=== PATIENT | female | born 1970 ===

== ENCOUNTER 2016-10-28 08:07 | Inpatient (IN) | payer MEDICARE, MEDICAID ==
[2016-10-28 08:08] VITALS: BMI 43.5
[2016-10-28] MEDS ORDERED: Albuterol-Ipratrop 3 mg / 0.5 (3 ml) UD IH STA (09:04)
[2016-10-28] MEDS ORDERED: cefTRIAXone 1 gm 100 ML IVPB STA (09:04)
[2016-10-28] MEDS ORDERED: Azithromycin 500MG/NS 250ml 250 ML IVPB STA (09:04)
[2016-10-28 09:44] LABS: ADD MANUAL DIFF? NO
[2016-10-28 09:48] LABS: BASO # 0.01 K/mm3 (0.0-2.0); BASO % 0.2 % (0.0-3.0); EOS # 0.1 (0.0-0.7); EOS % 2.2 % (1.5-5.0); GRAN # 3.82 (1.4-6.5); GRAN % 78.2 % (50.0-68.0); HEMATOCRIT 31.8 % (36.0-48.0); LYMPH # 0.7 (1.2-3.4); LYMPH % 14.3 % (22.0-35.0); MEAN CELL VOLUME 89.6 fL (80.0-105.0); MEAN CORPUSCULAR HEMOGLOBIN 29.9 pg (25.0-35.0); MEAN CORPUSCULAR HGB CONC 33.3 g/dl (31.0-37.0); MEAN PLATELET VOLUME 9.6 fl (7.0-11.0); MONO # 0.3 (0.1-0.6); MONO % 5.1 % (1.0-6.0); PLATELET COUNT 254 10^3/uL (120.0-450.0); RED CELL DISTRIBUTION WIDTH 13.4 % (11.5-14.5); WHITE BLOOD COUNT 4.9 10^3/ul (4.5-11.0)
[2016-10-28 09:54] LABS: VENOUS BLOOD GAS BASE EXCESS -3.8 mmol/L (0.0-2.0); VENOUS BLOOD PH 7.29 (7.32-7.43)
[2016-10-28 09:59] LABS: ALB/GLOB RATIO 0.8 (1.1-1.8); BILIRUBIN,TOTAL 0.4 mg/dL (0.2-1.3); CALCIUM 8.4 mg/dL (8.4-10.5); POTASSIUM 4.6 mmol/L (3.6-5.0); TOTAL PROTEIN 6.8 g/dL (5.8-8.3)
[2016-10-28] MEDS ORDERED: Insulin Detemir 100 units/ml Vial (Levemir) SC STA (10:21)
[2016-10-28 10:59] LABS: TROPONIN I 0.05 ng/mL
--- NOTE | 2016-10-28 11:03 | ED PDOC ---
Arrival/HPI - General Historian: Patient - History of Present Illness Time/Duration: Prior to Arrival Symptom Onset: Sudden Symptom Course: Unchanged - General Chief Complaint: Shortness Of Breath Time Seen by Provider: 10/28/16 08:46 - History of Present Illness Narrative History of Present Illness (Text): 10/28/16 10:55 This is a 46 year old female with past medical history notable for left rib fracture, DM, HLD, HTN, CAD s/p CABG, depression, chronic renal insufficiency and chronic foot ulcer presenting to the ED for acute onset of shortness of breath. The patient states that she woke this morning at 3:20am to go to the bathroom when she became acutely short of breath. The patient used her ventolin rescue inhaler without relief. In addition to the shortness of breath , the patietn reports left sided chest pain that has improved. The patient also reports a dry cough that has been minimally productive. The patient denies fever, chills, headache, abdominal pain, N/V/D/C, changes in bowel/ bladder, and extremity paresthesias. PMHX: left 9th rib fracture, IDDM, HLD, HTN, CAD s/p CABG, COPD, AKBAR, depression , chronic renal insufficiency, chronic foot ulcer Sx: CABG (3 - 2013), debridement of left foot ulcer Allergies: NKDA FH: DM- Mother/father; liver cancer- father's side Social: Denies tobacco, ETOH or drug use. Born in [place]. Does not work. Lives with son. Cardio- Dr. Markham Nephro- Dr. Flores PMD- Dr. Correa ([facility]) Past Medical History - Provider Review Nursing Documentation Reviewed: Yes - Travel History Have you recently traveled outside [place] w/in the past 3 mons?: No - Infectious Disease Hx of Infectious Diseases: None - Tetanus Immunization Tetanus Immunization: Unknown - Cardiac Hx Cardiac Disorders: Yes Hx [place]: Yes Hx Hypertension: Yes - Pulmonary Hx Respiratory Disorders: Yes Hx Asthma: Yes - Neurological Hx Neurological Disorder: Yes (NEUROPATHY) Other/Comment: chronic b/l legs and foot burning pain - HEENT Hx HEENT Disorder: Yes (eyeglasses) - Renal Hx Renal Disorder: Yes Other/Comment: Renal insufficiency -2 years. 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 - Endocrine/Metabolic Hx Endocrine Disorders: Yes Hx Diabetes Mellitus Type 1: Yes - Hematological/Oncological Hx Blood Disorders: Yes Hx Anemia: Yes - Integumentary Hx Dermatological Disorder: No - Musculoskeletal/Rheumatological Hx Musculoskeletal Disorders: No Hx Falls: No - Gastrointestinal Hx Gastrointestinal Disorders: No - Genitourinary/Gynecological Hx Genitourinary Disorders: No - Psychiatric Hx Psychophysiologic Disorder: Yes Hx Depression: Yes Hx Emotional Abuse: No Hx Physical Abuse: No Hx Substance Use: No - Surgical History Hx Coronary Artery Bypass Graft: Yes (triple vessel) Hx Open Heart Surgery: Yes - Anesthesia Hx Anesthesia: Yes Hx Anesthesia Reactions: No Hx Malignant Hyperthermia: No - Suicidal Assessment Feels Threatened In Home Enviroment: No - Patient History Narrative Patient History: PMHX: left 9th rib fracture, IDDM, HLD, HTN, CAD s/p CABG, COPD, AKBAR, depression , chronic renal insufficiency, chronic foot ulcer Sx: CABG (3 vessels- 2013), debridement of left foot ulcer (Jorge Alberto Coronel) Family/Social History - Physician Review Nursing Documentation Reviewed: Yes Family/Social History: Diabetes, Neoplasm/Cancer Smoking Status: Never Smoked Hx Alcohol Use: No Hx Substance Use: No Allergies/Home Meds Allergies/Adverse Reactions: Allergies No Known Allergies Allergy (Verified 10/28/16 08:13) Home Medications: Home Meds Medication Instructions Recorded Confirmed Aspirin [Aspirin EC] 81 mg PO DAILY 03/13/16 10/28/16 Ferrous Sulfate [Feosol] 325 mg PO BID 10/28/16 10/28/16 Metoprolol Tartrate [Lopressor] 25 mg PO BID 10/28/16 10/28/16 Sevelamer [Renagel] 800 mg PO TID 10/28/16 10/28/16 Sevelamer [Renagel] 800 mg PO TID 10/30/16 10/30/16 Review of Systems - Physician Review All systems were reviewed & negative as marked: Yes - Review of Systems Constitutional: absent: Fatigue, Fevers Respiratory: SOB, Cough, Sputum (scant) Cardiovascular: Chest Pain Gastrointestinal: absent: Abdominal Pain Physical Exam Temperature: Afebrile Blood Pressure: Hypertensive Pulse: Regular Respiratory Rate: Tachypneic Appearance: Positive for: Ill-Appearing Pain Distress: None Mental Status: Positive for: Alert and Oriented X 3 - Systems Exam Head: Present: Atraumatic, Normocephalic Pupils: Present: PERRL Extroacular Muscles: Present: EOMI Conjunctiva: Present: Normal Mouth: Present: Moist Mucous Membranes Neck: Present: Normal Range of Motion. No: JVD, Lymphadenopathy Respiratory/Chest: Present: Respiratory Distress, Accessory Muscle Use, Decreased Breath Sounds, Rales (Bi-basilar), Tachypneic. No: Clear to Auscultation, Good Air Exchange, Wheezes Cardiovascular: Present: Regular Rate and Rhythm, Normal S1, S2. No: Murmurs Abdomen: Present: Normal Bowel Sounds. No: Tenderness, Distention, Peritoneal Signs Upper Extremity: Present: Normal Inspection, NORMAL PULSES, Capillary Refill < 2s. No: Cyanosis, Edema Lower Extremity: Present: Normal Inspection. No: Edema Neurological: Present: CN II-XII Intact Skin: Present: Warm, Dry, Normal Color. No: Rashes Lymphatic: No: Cervical Adenopathy Psychiatric: Present: Alert, Oriented x 3 Vital Signs Temp Pulse Pulse Resp BP Pulse Ox 10/28/16 17:47 91 H 18 194/110 H 98 10/28/16 17:45 81 81 20 134/89 10/28/16 17:44 95 H 194/110 H 10/28/16 15:58 86 18 179/94 H 99 10/28/16 15:42 88 22 168/74 H 99 10/28/16 14:14 81 20 164/89 H 100 10/28/16 13:36 80 18 154/87 H 100 10/28/16 12:53 79 22 141/92 H 100 10/28/16 12:02 76 20 176/67 H 100 10/28/16 11:49 75 18 164/96 H 100 10/28/16 11:23 74 19 182/96 H 100 10/28/16 11:17 74 18 159/100 H 100 10/28/16 10:06 97.5 F L 86 19 153/99 H 100 10/28/16 09:48 87 190/105 H 10/28/16 09:47 87 190/105 H 10/28/16 08:47 18 100 10/28/16 08:08 190/105 H Medical Decision Making - Lab Interpretations I have reviewed the lab results: Yes Interpretation: No clinic. 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 The patient appears in respiratory distress and will be treated empirically for acute COPD exacerbation. Differential: Acute COPD Exacerbation Pneumonia Asthma Exacerbation [place] Plan: CBC, CMP, VBG Shock Panel, Troponin, BNP 2-view CXR Rocephin 1g IV x 1 Azithromycin 500gm IV x 1 Duoneb Stat / Sched q6 Levemir 12u x 1 Prior Visits: Multiple admissions for Chest Pain and Shortness of Breath Progress Note: Patient seen and examined. In respiratory distress. The patient will require hospital admission in the setting of likely COPD exacerbation. 2 view CXR showed minimal bibasilar infiltrates and small effusions. Patient was treated empirically with rocephin and azithromycin 1 dose each. Hospitalist team notified of admission. (Jorge Alberto Coronel) ATTENDING PHYSICIAN FOCUSED HISTORY & PHYSICAL EXAM NOTE: Pt is a 46 yr old female who was seen and examined w/ the resident. Pt is c/o SOB since 3 AM and is having no relief when using inhalers at home. On our exam, T 97.5, P 86, R 19, BP 153/99 Gen: Pt is A&O x 3 in some resp distress Heart: RRR Lungs: decreased breath sounds to lungs B/L with rales noted bilaterally Initial Imp: COPD Exacerbation Initial Plan: Will give nebs, get CXR and give steroids. . (Austin Carroll Jr.) - Lab Interpretations Microbiology Results: Microbiology Results 10/28/16 09:30 Blood-Venous Blood Culture - Final NO GROWTH AFTER 5 DAYS 10/28/16 09:30 Blood-Venous Gram Stain - Final TEST NOT PERFORMED 10/28/16 09:30 Blood-Venous Blood Culture - Final NO GROWTH AFTER 5 DAYS 10/28/16 09:30 Blood-Venous Gram Stain - Final TEST NOT PERFORMED Lab Results: 10/28/16 09:00 10/28/16 09:00 Lab Results 10/28/16 11:29: POC Glucose (mg/dL) 403 H* 10/28/16 10:36: Troponin I 0.05, NT-Pro-B Natriuret Pep 66042 H 10/28/16 09:30: pO2 50, VBG pH 7.29 L, VBG pCO2 48.0, VBG HCO3 23.1, VBG Total CO2 24.6, VBG O2 Sat (Calc) 85.6 H, VBG Base Excess -3.8 L, VBG Potassium 4.6, Sodium 139.0, Chloride 112.0 H, Glucose 354 H, Lactate 0.7, FiO2 21.0, Venous Blood Potassium 4.6 10/28/16 09:00: WBC 4.9 D, RBC 3.55, Hgb 10.6 L, Hct 31.8 L, MCV 89.6, MCH 29.9 , MCHC 33.3, RDW 13.4, Plt Count 254, MPV 9.6, Gran % 78.2 H, Lymph % (Auto) 14.3 L, [place] % (Auto) 5.1, Eos % (Auto) 2.2, Baso % (Auto) 0.2, Gran # 3.82, Lymph # 0.7 L, [place] # 0.3, Eos # 0.1, Baso # 0.01, Sodium 136, Chloride 105, Potassium 4.6, Carbon Dioxide 26, Anion Gap 10, BUN 50 H, Creatinine 3.6 H, Est GFR ( Amer) 16, Est GFR (Non-Af Amer) 13, Random Glucose 329 H* D, Calcium 8.4, Total Bilirubin 0.4, AST 24, ALT 25, Alkaline Phosphatase 81, Total Protein 6.8, Albumin 3.0, Globulin 3.8, Albumin/Globulin Ratio 0.8 L, Beta HCG, Quant 5.18 Laboratory Last Values WBC 4.9 10^3/ul (4.5-11.0) D 10/28/16 09:00 RBC 3.55 10^6/uL (3.5-6.1) 10/28/16 09:00 Hgb 10.6 gm/dL (12.0-16.0) L 10/28/16 09:00 Hct 31.8 % (36.0-48.0) L 10/28/16 09:00 MCV 89.6 fL (80.0-105.0) 10/28/16 09:00 MCH 29.9 pg (25.0-35.0) 10/28/16 09:00 MCHC 33.3 g/dl (31.0-37.0) 10/28/16 09:00 RDW 13.4 % (11.5-14.5) 10/28/16 09:00 Plt Count 254 10^3/uL (120.0-450.0) 10/28/16 09:00 MPV 9.6 fl (7.0-11.0) 10/28/16 09:00 Gran % 78.2 % (50.0-68.0) H 10/28/16 09:00 Lymph % (Auto) 14.3 % (22.0-35.0) L 10/28/16 09:00 [place] % (Auto) 5.1 % (1.0-6.0) 10/28/16 09:00 Eos % (Auto) 2.2 % (1.5-5.0) 10/28/16 09:00 Baso % (Auto) 0.2 % (0.0-3.0) 10/28/16 09:00 Gran # 3.82 (1.4-6.5) 10/28/16 09:00 Lymph # 0.7 (1.2-3.4) L 10/28/16 09:00 [place] # 0.3 (0.1-0.6) 10/28/16 09:00 Eos # 0.1 (0.0-0.7) 10/28/16 09:00 Baso # 0.01 K/mm3 (0.0-2.0) 10/28/16 09:00 pO2 50 mm/Hg (30-55) 10/28/16 09:30 VBG pH 7.29 (7.32-7.43) L 10/28/16 09:30 VBG pCO2 48.0 (40-60) 10/28/16 09:30 VBG HCO3 23.1 mmol/l (21-28) 10/28/16 09:30 VBG Total CO2 24.6 mmol.L (22-28) 10/28/16 09:30 VBG O2 Sat (Calc) 85.6 % (40-65) H 10/28/16 09:30 VBG Base Excess -3.8 mmol/L (0.0-2.0) L 10/28/16 09:30 VBG Potassium 4.6 mmol/L (3.6-5.2) 10/28/16 09:30 Sodium 139.0 mmol/L (132-148) 10/28/16 09:30 Chloride 112.0 mmol/L (98-107) H 10/28/16 09:30 Glucose 354 mg/dl (65-105) H 10/28/16 09:30 Lactate 0.7 mmol/L (0.7-2.1) 10/28/16 09:30 FiO2 21.0 % 10/28/16 09:30 Sodium 136 mmol/L (132-148) 10/28/16 09:00 Potassium 4.6 mmol/L (3.6-5.0) 10/28/16 09:00 Chloride 105 mmol/L (95-110) 10/28/16 09:00 Carbon Dioxide 26 mmol/L (21-33) 10/28/16 09:00 Anion Gap 10 (10-20) 10/28/16 09:00 BUN 50 mg/dL (7-21) H 10/28/16 09:00 Creatinine 3.6 mg/dL (0.5-1.4) H 10/28/16 09:00 Est GFR ( Amer) 16 10/28/16 09:00 Est GFR (Non-Af Amer) 13 10/28/16 09:00 Random Glucose 329 mg/dL (70-110) H* D 10/28/16 09:00 Calcium 8.4 mg/dL (8.4-10.5) 10/28/16 09:00 Total Bilirubin 0.4 mg/dL (0.2-1.3) 10/28/16 09:00 AST 24 U/L (15-39) 10/28/16 09:00 ALT 25 U/L (7-56) 10/28/16 09:00 Alkaline Phosphatase 81 U/L (38-133) 10/28/16 09:00 Troponin I 0.05 ng/mL 10/28/16 10:36 NT-Pro-B Natriuret Pep 73994 pg/mL (0-450) H 10/28/16 10:36 Total Protein 6.8 g/dL (5.8-8.3) 10/28/16 09:00 Albumin 3.0 g/dL (3.0-4.8) 10/28/16 09:00 Globulin 3.8 gm/dL 10/28/16 09:00 Albumin/Globulin Ratio 0.8 (1.1-1.8) L 10/28/16 09:00 Beta HCG, Quant 5.18 mIU/mL (0-6.15) 10/28/16 09:00 Venous Blood Potassium 4.6 mmol/L (3.6-5.2) 10/28/16 09:30 (Jorge Alberto Coronel) - RAD Interpretation Narrative RAD Interpretations (Text): 10/28/16 11:27 2 view chest- Minimal bibasilar infiltrates and small effusions (Jorge Alberto Coronel ) Radiology Orders: 10/28/16 09:04 CHEST TWO VIEWS (PA/LAT) [RAD] Stat - EKG Interpretation EKG Interpretation (Text): 10/28/16 11:27 T wave abnormality possible lateral ischemia prolonged QT NSR (Jorge Alberto Coronel) - Medication Orders Current Medication Orders: Acetaminophen (Tylenol 325mg Tab) 650 mg PO Q6H PRN PRN Reason: Fever >100.4 F Last Admin: 10/30/16 09:50 Dose: 650 MG BANNER Pain/Vitals Document 10/30/16 09:50 SG (Rec: 10/30/16 09:51 SG [id number] Pain Reassessment Is This A Pain ReAssessment? No Sleep Is patient sleeping during reassessment? No Presence of Pain Presence of Pain Yes Pain Scale Used Pain Scale Used Numeric Location Pain Location Body Site Back Description Intermittent Intensity 8 Scale Used Numeric Radiation Location none Variations/Patterns on/off Site Observation unremarkable Pain Behavior Facial Grimacing Aggravating Factors ADL's Changing Position Exercise/Activity Re-Assess: BANNER Pain/Vitals Document 10/30/16 10:50 SG (Rec: 10/30/16 12:37 SG [facility] [id number] Pain Reassessment Is This A Pain ReAssessment? Yes Sleep Is patient sleeping during reassessment? No Presence of Pain Presence of Pain No Acetylcysteine (Acetylcysteine 20%) 3 ml PO BID [facility] Last Admin: 11/02/16 10:36 Dose: 3 ML Albuterol/Ipratropium (Duoneb 3 Mg/0.5 Mg (3 Ml) Ud) 3 ml IH [id number] [facility] Last Admin: 11/02/16 13:36 Dose: 3 ML Aspirin (Ecotrin) 81 mg PO DAILY [facility] Last Admin: 11/02/16 10:51 Dose: 81 MG Atorvastatin Calcium (Lipitor) 40 mg PO DIN [facility] Last Admin: 11/01/16 17:33 Dose: 40 MG Cholecalciferol (Vitamin D) 2,000 iu PO DAILY [facility] Last Admin: 11/02/16 10:36 Dose: 2,000 IU Clopidogrel Bisulfate (Plavix) 75 mg PO DAILY [facility] Last Admin: 11/02/16 10:37 Dose: 75 MG Docusate Sodium (Colace) 100 mg PO BID [facility] Last Admin: 11/02/16 10:37 Dose: 100 MG Stool Assessment Document 11/02/16 10:37 AE (Rec: 11/02/16 10:37 AE [id number]) Pattern Bowel Pattern Normal Bowel Movement Frequency Daily Description Stool Characteristics Formed Brown Doxycycline Hyclate (Doryx) 100 mg PO Q12 [facility] PRN Reason: Protocol Last Admin: 11/02/16 10:37 Dose: 100 MG Famotidine (Pepcid) 20 mg PO 1000,2200 [facility] Last Admin: 11/02/16 10:37 Dose: 20 MG Ferrous Sulfate (Feosol) 324 mg PO TID [facility] Last Admin: 11/02/16 14:21 Dose: 324 MG Gabapentin (Neurontin) 300 mg PO DAILY [facility] PRN Reason: Protocol Last Admin: 11/02/16 10:43 Dose: 300 MG Behavioural Document 11/02/16 10:43 AE (Rec: 11/02/16 10:43 AE [id number]) Maintenance Maintenance Dose Yes Re-Assess: Reassess Psych Meds Document 11/02/16 11:43 SEUN (Rec: 11/02/16 14:29 SEUN [id number] Reassess Psych Med Effective Heparin Sodium (Porcine) (Heparin) 5,000 units SC Q8 [facility] PRN Reason: Protocol Last Admin: 11/02/16 14:20 Dose: 5,000 UNITS Subcutaneous Administrations Document 11/02/16 14:20 SEUN (Rec: 11/02/16 14:21 SEUN [id number] Injection Site MAR Injection Site Left Abdomen Charges for Administration # of Subcutaneous Administrations 1 Hydralazine HCl (Apresoline) 25 mg PO TID [facility] Last Admin: 11/02/16 14:21 Dose: 25 MG MAR Pulse and Blood Pressure Document 11/02/16 14:21 SEUN (Rec: 11/02/16 14:26 SEUN [id number] Pulse Pulse Rate (60-90) 90 Blood Pressure Blood Pressure (100/60-150/90) 123/69 Furosemide 240 mg/ Dextrose 264 mls @ 11 mls/hr IV .Q24H SELWYN; 10 MG/HR PRN Reason: Protocol Last Admin: 11/02/16 14:57 Dose: 11 MLS/HR MAR Blood Pressure Document 11/02/16 14:57 RKO (Rec: 11/02/16 14:58 RKO [id number]) Blood Pressure Blood Pressure (100/60-150/90) 123/69 eMAR Start Stop Document 11/02/16 14:57 RKO (Rec: 11/02/16 14:58 RKO [id number]) Intravenous Solution Start Date 11/02/16 Start Time 14:58 Insulin Detemir (Levemir) 17 unit SC Q12 [facility] Last Admin: 11/02/16 10:43 Dose: 17 UNIT Subcutaneous Administrations Document 11/02/16 10:43 AE (Rec: 11/02/16 10:43 AE [id number]) Injection Site MAR Injection Site Right Arm Charges for Administration # of Subcutaneous Administrations 1 Insulin Human Lispro (Humalog Med) 0 units SC ACHS [facility] PRN Reason: Protocol Last Admin: 11/02/16 13:40 Dose: 5 UNITS MAR Blood Glucose Document 11/02/16 13:40 SEUN (Rec: 11/02/16 13:41 SEUN [id number] Blood Glucose Finger Stick Blood Glucose (70-120) 261 Subcutaneous Administrations Document 11/02/16 13:40 SEUN (Rec: 11/02/16 13:41 SEUN [facility] [id number] Injection Site MAR Injection Site Right Arm Charges for Administration # of Subcutaneous Administrations 1 Metoprolol Tartrate (Lopressor) 25 mg PO BID [facility] Last Admin: 11/02/16 10:37 Dose: 25 MG MAR Pulse and Blood Pressure Document 11/02/16 10:37 AE (Rec: 11/02/16 10:42 AE [id number]) Pulse Pulse Rate (60-90) 90 Blood Pressure Blood Pressure (100/60-150/90) 159/81 Polyethylene Glycol (Miralax) 17 gm PO BID [facility] Prednisone (Prednisone Tab) 10 mg PO DAILY [facility] Sevelamer HCl (Renagel) 1,600 mg PO WM [facility] Last Admin: 11/02/16 14:29 Dose: Discontinued Medications Acetylcysteine (Acetylcysteine 20%) 6 ml PO BID SELWYN Stop: 10/31/16 18:01 Last Admin: 10/31/16 18:30 Dose: 6 ML Acetylcysteine (Acetylcysteine 20%) 6 ml PO ONCE ONE Stop: 10/29/16 06:31 Last Admin: 10/29/16 06:46 Dose: 6 ML Albuterol/Ipratropium (Duoneb 3 Mg/0.5 Mg (3 Ml) Ud) 3 ml IH STAT STA Stop: 10/28/16 09:05 Last Admin: 10/28/16 09:30 Dose: 3 ML Albuterol/Ipratropium (Duoneb 3 Mg/0.5 Mg (3 Ml) Ud) 3 ml IH Q2 PRN PRN Reason: Shortness of Breath Stop: 10/28/16 18:01 Albuterol/Ipratropium (Duoneb 3 Mg/0.5 Mg (3 Ml) Ud) 3 ml IH STAT STA Stop: 11/01/16 16:18 Last Admin: 11/01/16 16:42 Dose: 3 ML Diphenhydramine HCl (Benadryl) 25 mg IVP STAT STA Stop: 10/30/16 05:25 Last Admin: 10/30/16 05:43 Dose: 25 MG IVP Administration Document 10/30/16 05:43 AII (Rec: 10/30/16 05:43 AII [id number] Charges for Administration # of IVP Administrations 1 Diphenhydramine HCl (Benadryl) 50 mg PO STAT STA Stop: 10/30/16 22:36 Last Admin: 10/30/16 22:54 Dose: 50 MG Furosemide (Lasix) 40 mg IVP ONCE ONE Stop: 10/28/16 19:48 Last Admin: 10/28/16 20:06 Dose: 40 MG MAR Blood Pressure Document 10/28/16 20:06 DS (Rec: 10/28/16 20:06 DS [id number]) Blood Pressure Blood Pressure (100/60-150/90) 165/74 IVP Administration Document 10/28/16 20:06 DS (Rec: 10/28/16 20:06 DS [id number]) Charges for Administration # of IVP Administrations 1 Hydralazine HCl (Apresoline) 10 mg IVP STAT SELWYN Stop: 10/28/16 09:16 Last Admin: 10/28/16 09:47 Dose: 10 MG MAR Pulse and Blood Pressure Document 10/28/16 09:47 SE (Rec: 10/28/16 09:48 SE [id number]) Pulse Pulse Rate (60-90) 87 Blood Pressure Blood Pressure (100/60-150/90) 190/105 IVP Administration Document 10/28/16 09:47 SE (Rec: 10/28/16 09:48 SE [id number]) Charges for Administration # of IVP Administrations 1 Azithromycin (Zithromax 500mg In Ns) 250 mls @ 167 mls/hr IVPB STAT STA PRN Reason: Protocol Stop: 10/28/16 10:33 Last Admin: 10/28/16 10:49 Dose: 167 MLS/HR eMAR Start Stop Document 10/28/16 10:49 SE (Rec: 10/28/16 10:50 SE [id number]) Intravenous Solution Start Date 10/28/16 Start Time 10:49 Ceftriaxone Sodium (Rocephin 1 Gram Ivpb) 100 mls @ 200 mls/hr IVPB STAT STA PRN Reason: Protocol Stop: 10/28/16 09:33 Last Admin: 10/28/16 09:49 Dose: 200 MLS/HR eMAR Start Stop Document 10/28/16 09:49 SE (Rec: 10/28/16 09:49 SE [id number]) Intravenous Solution Start Date 10/28/16 Start Time 09:49 Milrinone Lactate/Dextrose (Primacor 20mg/100ml D5w) 100 mls @ 12.125 mls/hr IV .Q8H15M PRN; Protocol; 0.33 MCG/KG/MIN PRN Reason: TITRATE PER MD ORDER Last Admin: 11/02/16 03:49 Dose: 12.1 MLS/HR MAR Vitals Document 11/02/16 03:49 DS (Rec: 11/02/16 03:51 DS [id number] Measurements Blood Pressure (100/60-150/90) 130/68 Pulse Rate (60-90) 88 Titration Intervention Document 11/02/16 03:49 DS (Rec: 11/02/16 03:51 DS [id number] Titration Intake Container Volume 100 Titration Dosing Titration Dose 0.32 IV Rate 12.1 Intake/Decrease Running eMAR Start Stop Document 11/02/16 03:49 DS (Rec: 11/02/16 03:51 DS [facility] [id number] Intravenous Solution Start Date 11/02/16 Start Time 03:50 Influenza Virus Vaccine (Fluvirin) 45 mcg IM .ONCE ONE Stop: 10/28/16 18:16 Insulin Detemir (Levemir) 10 unit SC ONCE STA Stop: 10/28/16 10:22 Last Admin: 10/28/16 10:32 Dose: 10 UNIT Subcutaneous Administrations Document 10/28/16 10:32 SE (Rec: 10/28/16 10:32 SE [id number]) Injection Site MAR Injection Site Left Arm Charges for Administration # of Subcutaneous Administrations 1 Insulin Detemir (Levemir) 12 unit SC BID [facility] Last Admin: 10/29/16 17:55 Dose: 12 UNIT Subcutaneous Administrations Document 10/29/16 17:55 AE (Rec: 10/29/16 17:56 AE [id number] Charges for Administration # of Subcutaneous Administrations 1 Insulin Detemir (Levemir) 14 unit SC BID [facility] Last Admin: 10/31/16 10:51 Dose: 14 UNIT Subcutaneous Administrations Document 10/31/16 10:51 SG (Rec: 10/31/16 10:52 SG [id number]) Injection Site MAR Injection Site Right Arm Charges for Administration # of Subcutaneous Administrations 1 Insulin Detemir (Levemir) 15 unit SC BID [facility] Last Admin: 10/31/16 18:33 Dose: 15 UNIT Subcutaneous Administrations Document 10/31/16 18:33 SG (Rec: 10/31/16 18:33 SG [id number]) Injection Site MAR Injection Site Right Arm Charges for Administration # of Subcutaneous Administrations 1 Insulin Human Lispro (Humalog) 10 units SC ONCE STA Stop: 10/28/16 11:41 Last Admin: 10/28/16 12:51 Dose: 10 UNITS Comments: waiting on lunch tray for admin. Subcutaneous Administrations Document 10/28/16 12:51 SE (Rec: 10/28/16 12:51 SE [id number]) Injection Site MAR Injection Site Right Arm Charges for Administration # of Subcutaneous Administrations 1 Insulin Human Lispro (Humalog) 5 units SC ONCE ONE Stop: 10/29/16 23:42 Insulin Human Lispro (Humalog) 5 units SC ONCE ONE Stop: 10/28/16 23:46 Last Admin: 10/28/16 23:55 Dose: 5 UNITS Comments: Blood sugar yielded 465 Subcutaneous Administrations Document 10/28/16 23:55 DS (Rec: 10/28/16 23:56 DS [id number]) Injection Site MAR Injection Site Right Abdomen Charges for Administration # of Subcutaneous Administrations 1 Insulin Human Lispro (Humalog) 5 units SC ONCE ONE Stop: 10/30/16 01:05 Last Admin: 10/30/16 01:18 Dose: 5 UNITS Subcutaneous Administrations Document 10/30/16 01:18 AII (Rec: 10/30/16 01:19 AII [id number]) Injection Site MAR Injection Site Right Abdomen Charges for Administration # of Subcutaneous Administrations 1 Methylprednisolone (Solu-Medrol) 125 mg IVP STAT STA Stop: 10/28/16 09:08 Last Admin: 10/28/16 09:47 Dose: 125 MG IVP Administration Document 10/28/16 09:47 SE (Rec: 10/28/16 09:47 SE [facility] [id number][place] Charges for Administration # of IVP Administrations 1 Methylprednisolone (Solu-Medrol) 40 mg IV ONCE ONE Stop: 10/29/16 10:01 Last Admin: 10/29/16 10:14 Dose: 40 MG eMAR Start Stop Document 10/29/16 10:14 AE (Rec: 10/29/16 10:14 AE [facility] [id number]) Intravenous Solution Start Date 10/29/16 Start Time 10:14 End Date 10/29/16 End time 10:15 Total Infusion Time 1 Metoprolol Tartrate (Lopressor) 25 mg PO STAT STA Stop: 10/28/16 09:10 Last Admin: 10/28/16 09:48 Dose: 25 MG MAR Pulse and Blood Pressure Document 10/28/16 09:48 SE (Rec: 10/28/16 09:48 SE [facility] [id number][place] Pulse Pulse Rate (60-90) 87 Blood Pressure Blood Pressure (100/60-150/90) 190/105 Milrinone Lactate/Dextrose (Primacor 1mg/Ml Inj (10ml)) 6.1 mg IVP ONCE ONE Stop: 10/29/16 11:08 Last Admin: 10/29/16 12:07 Dose: 6.1 MG IVP Administration Document 10/29/16 12:07 AE (Rec: 10/29/16 12:07 AE [facility] [id number] Charges for Administration # of IVP Administrations 1 Nitroglycerin (Nitrostat Sl Tab) Confirm Administered Dose 0.4 mg SL .STK-MED ONE Stop: 11/01/16 16:42 Last Admin: 11/01/16 16:53 Dose: Nitroglycerin (Nitrostat Sl Tab) 0.4 mg SL Q5M [facility] Stop: 11/01/16 16:56 Last Admin: 11/01/16 17:25 Dose: Not Given Non-Admin Reason: Patient Refused Pneumococcal Polyvalent Vaccine (Pneumovax 23 Vaccine) 0.5 ml IM .ONCE ONE Stop: 10/28/16 18:16 Polyethylene Glycol (Miralax) 17 gm PO ONCE ONE Stop: 11/01/16 11:53 Last Admin: 11/01/16 12:52 Dose: 17 GM Prednisone (Prednisone Tab) 40 mg PO DAILY [facility] Last Admin: 10/31/16 10:46 Dose: 40 MG Prednisone (Prednisone Tab) 30 mg PO DAILY [facility] Last Admin: 11/01/16 10:04 Dose: 30 MG Prednisone (Prednisone Tab) 20 mg PO DAILY [facility] Last Admin: 11/02/16 10:44 Dose: 20 MG Sevelamer HCl (Renagel) 800 mg PO WM [facility] Last Admin: 10/30/16 12:32 Dose: 800 MG Torsemide (Demadex) 10 mg PO BID [facility] Last Admin: 11/02/16 10:51 Dose: 10 MG Disposition/Present on Arrival - Present on Arrival Any Indicators Present on Arrival: Yes History of DVT/PE: No History of Uncontrolled Diabetes: Yes Urinary Catheter: No History of Decub. Ulcer: No History Surgical Site Infection Following: None - Disposition Have Diagnosis and Disposition been Completed?: Yes Disposition Time: 11:00 Patient Plan: Admission - Disposition Diagnosis: COPD exacerbation, Chest pain, Renal insufficiency, Hyperglycemia, Diabetes, Congestive heart failure Disposition: HOSPITALIZED Patient Problems: Current Active Problems Problem Status Diagnosed COPD exacerbation Acute Chest pain Acute Congestive heart failure (CHF) Acute Gastroenteritis Acute Hyperglycemia Acute Congestive heart failure Chronic Diabetes Chronic Renal insufficiency Chronic Condition: GUARDED
--- NOTE | 2016-10-28 11:15 | RAD ---
HISTORY: SOB COMPARISON: 09/29/2016 TECHNIQUE: Chest PA and lateral FINDINGS: LUNGS: Minimal bibasilar infiltrates and small effusions. Findings are unchanged PLEURA: No significant pleural effusion identified. No pneumothorax apparent. CARDIOVASCULAR: Normal. OSSEOUS STRUCTURES: No significant abnormalities. VISUALIZED UPPER ABDOMEN: Normal. OTHER FINDINGS: None. IMPRESSION: Minimal bibasilar infiltrates and small effusions
[2016-10-28] MEDS ORDERED: Insulin Lispro 1 UNITS/0.01 ML SC STA (11:40)
[2016-10-28] MEDS ORDERED: Albuterol-Ipratrop 3 mg / 0.5 (3 ml) UD IH PRN (13:57)
[2016-10-28] MEDS: Albuterol-Ipratrop 3 mg / 0.5 (3 ml) UD IH SCH ×2 (14:11→22:45)
--- NOTE | 2016-10-28 15:53 | CP.PCM.HP ---
<Wade Alvarez - Last Filed: 10/28/16 19:33> History of Present Illness - History of Present Illness History of Present Illness: This is a 46 year old female with past medical history notable for left rib fracture, DM, HLD, HTN, CAD s/p CABG, depression, chronic renal insufficiency and chronic foot ulcer presenting to the ED for acute onset of shortness of breath. The patient states that she woke this morning at 3:20am to go to the bathroom when she became acutely short of breath. She has never had this much difficulty breathing before. The patient used her ventolin rescue inhaler without relief. In addition to the shortness of breath, the patient reports left sided chest pain that has improved and difficulty sleeping for the last month due to her difficulty breathing. During a recent sleep study she stated she was on Bipap and that worked very well for her but she does not have a CPAP at home. The patient also reports a dry cough that has been minimally productive. The patient denies fever, chills, headache, abdominal pain, N/V/D/C , changes in bowel/bladder, and extremity paresthesias. PMHX: left 9th rib fracture, IDDM, HLD, HTN, CAD s/p CABG, COPD, AKBAR, depression , chronic renal insufficiency, chronic foot ulcer Sx: CABG (3 2013), debridement of left foot ulcer Allergies: NKDA FH: DM- Mother/father; liver cancer- father's side Social: Denies tobacco, ETOH or drug use. Born in [place]. Does not work. Lives with son. Cardio- Dr. Markham Nephro- Dr. Flores PMD- Dr. Correa Present on Admission - Present on Admission Any Indicators Present on Admission: No Review of Systems - Constitutional Constitutional: absent: Chills, Fever, Headache - EENT Eyes: absent: Blurred Vision, Change in Vision Ears: absent: Decreased Hearing, Dizziness Nose/Mouth/Throat: Sore Throat - Cardiovascular Cardiovascular: Chest Pain. absent: Palpitations, Radiating Pain - Respiratory Respiratory: Cough, Dyspnea, Dyspnea on Exertion, Wheezing - Gastrointestinal Gastrointestinal: Abdominal Pain, Nausea. absent: Diarrhea, Vomiting - Genitourinary Genitourinary: absent: Difficulty Urinating, Dysuria, Flank Pain, Urinary Frequency - Musculoskeletal Musculoskeletal: Tingling. absent: Back Pain - Integumentary Integumentary: absent: Rash, Wounds - Neurological Neurological: Dizziness, Tingling. absent: Numbness, Syncope, Weakness - Psychiatric Psychiatric: Abnormal Sleep Pattern - Endocrine Endocrine: absent: Cold Intolorance, Fatigue, Heat Intolorance, Palpitations, Polydipsia, Polyuria Past Patient History - Infectious Disease Hx of Infectious Diseases: None - Tetanus Immunizations Tetanus Immunization: Unknown - Past Medical History & Family History Past Medical History?: Yes - Past Social History Smoking Status: Never Smoked Chewing Tobacco Use: No Cigar Use: No Alcohol: None Drugs: Denies Home Situation {Lives}: With Family (son) - CARDIAC Hx Cardiac Disorders: Yes Hx Heart Attack: Yes Hx Hypertension: Yes - PULMONARY Hx Respiratory Disorders: Yes Hx Asthma: Yes - NEUROLOGICAL Hx Neurological Disorder: Yes (NEUROPATHY) Other/Comment: chronic b/l legs and foot burning pain - HEENT Hx HEENT Problems: Yes (eyeglasses) - RENAL Hx Chronic Kidney Disease: Yes Other/Comment: Renal insufficiency -2 years. 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 - ENDOCRINE/METABOLIC Hx Endocrine Disorders: Yes Hx Diabetes Mellitus Type 1: Yes - HEMATOLOGICAL/ONCOLOGICAL Hx Blood Disorders: Yes Hx Anemia: Yes - INTEGUMENTARY Hx Dermatological Problems: No - MUSCULOSKELETAL/RHEUMATOLOGICAL Hx Musculoskeletal Disorders: No Hx Falls: No - GASTROINTESTINAL Hx Gastrointestinal Disorders: No - GENITOURINARY/GYNECOLOGICAL Hx Genitourinary Disorders: No - PSYCHIATRIC Hx Psychophysiologic Disorder: Yes Hx Depression: Yes Hx Emotional Abuse: No Hx Physical Abuse: No Hx Substance Use: No - SURGICAL HISTORY Hx Coronary Artery Bypass Graft: Yes (triple vessel) Hx Open Heart Surgery: Yes - ANESTHESIA Hx Anesthesia: Yes Hx Anesthesia Reactions: No Hx Malignant Hyperthermia: No Meds Allergies/Adverse Reactions: Allergies Allergy/AdvReac Type Severity Reaction Status Date / Time No Known Allergies Allergy Verified 10/28/16 08:13 Physical Exam - Constitutional Appears: Non-toxic, No Acute Distress - Head Exam Head Exam: ATRAUMATIC, NORMOCEPHALIC - Eye Exam Eye Exam: EOMI - ENT Exam ENT Exam: Mucous Membranes Moist - Neck Exam Neck exam: Positive for: Normal Inspection - Respiratory Exam Respiratory Exam: Wheezes, NORMAL BREATHING PATTERN - Cardiovascular Exam Cardiovascular Exam: REGULAR RHYTHM, RRR, +S1, +S2 - GI/Abdominal Exam GI & Abdominal Exam: Normal Bowel Sounds - Extremities Exam Extremities exam: Positive for: joint swelling, pedal edema - Back Exam Back exam: absent: CVA tenderness (L), CVA tenderness (R), paraspinal tenderness - Neurological Exam Neurological exam: Alert, CN II-XII Intact, Oriented x3 - Psychiatric Exam Psychiatric exam: Normal Affect, Normal Mood - Skin Skin Exam: Dry, Intact, Normal Color, Warm Results - Vital Signs Recent Vital Signs: Last Vital Signs Temp 97.5 F L 10/28/16 10:06 Pulse 88 10/28/16 15:42 Resp 22 10/28/16 15:42 BP 168/74 H 10/28/16 15:42 Pulse Ox 99 10/28/16 15:42 - Labs Result Diagrams: 10/28/16 09:00 10/28/16 09:00 - EKG Data EKG Interpreted by: ER Physician - EKG Data EKG comments: T wave abnormality possible lateral ischemia prolonged QT NSR Assessment & Plan - Assessment and Plan (Free Text) Assessment: 46 year old female with past medical history notable for left rib fracture, DM, HLD, HTN, CAD s/p CABG, depression, chronic renal insufficiency and chronic foot ulcer presenting to the ED for acute onset of shortness of breath and chest pain. Plan: Chest Pain -hx of CABG 2013 -hx of Stress Test Oct 22, 2016 showed EF of 21% per patient -Consult - Dr. Markham -Chest Xray -Minimal bibasilar infiltrates and small effusions -No cardiomegaly -EKG -T wave abnormality possible lateral ischemia -prolonged QT, NSR @ 86bpm -Trop "+" x1 -scheduled for cath tomorrow with Dr. Markham -pt. previously had cardiac stress test EF 21% and already had the Cath procedure scheduled for 10/29 Shortness of Breath -Chest Xray -Minimal bibasilar infiltrates and small effusions -No cardiomegaly -Solumedrol 40mg -Duonebs q6 SELWYN -Duonebs q2 PRN -BiPAP -I 12 -E 6 -O2 40% -wear at night -Blood Cultures - ordered -Ceftriaxone Chronic Renal Insufficiency -not on dialysis consult - Dr. Flores monitor CMP -BUN/Cr 50/3.6 on 10/28 Diabetes -CBC/CMP/Mg/Phos -glucose 329 on 10/28 -HgA1c -Insulin Lispro Medium SS Hypertension -Hydralazine -Torsemide -ASA -Metoprolol Hyperlipidemia -Lipitor - Date & Time Date: 10/28/16 Time: 13:00 <Faith Leavitt - Last Filed: 10/29/16 12:14> Results - Vital Signs Recent Vital Signs: Last Vital Signs Temp 97.4 F L 10/29/16 06:00 Pulse 80 10/29/16 06:46 Resp 20 10/29/16 06:00 BP 143/64 10/29/16 06:46 Pulse Ox 97 10/29/16 06:00 - Labs Result Diagrams: 10/29/16 07:30 10/29/16 07:30 Labs: Laboratory Results - last 24 hr 10/28/16 10/28/16 10/28/16 17:38 18:48 21:31 POC Glucose (mg/dL) 303 H 379 H 479 H* 10/28/16 10/29/16 23:34 03:00 POC Glucose (mg/dL) 465 H* 298 H Attending/Attestation - Attestation I have personally seen and examined this patient.: Yes I have fully participated in the care of the patient.: Yes I have reviewed all pertinent clinical information: Yes Notes (Text): Patient seen and examined with resident. 46 year old female with obesity, IDDM, HTN, CAD s/p CABG, CKD secondary to nephrotic syndrome, cardiomyopathy who got admitted for evaluation of shortness of breath most likely due to copd exacerbation vs CHF exacerbation due to systolic dysfunction (EF35%). Patient is able to talk in complete sentences and is not hypoxic at this time. She also had chest pain prior to coming to the hospital which has resolved now. 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 Still waiting for cpap to be delivered at home. Stress test done on 10/22/2016 showed EF of 21% and fixed defect. EKG showed T wave abnormailty, possible lateral ischemia in lateral leads, prolong QT interval. Also has elevated troponins. Dr Markham has already scheduled her for cardiac cath. CXR showed minimal bibasilar infiltrates and small effusions. Will start her on home medications. Will start her on duonebs, doxy and solumedrol. Dr Faith Leavitt
--- NOTE | 2016-10-28 16:46 | CARD ---
APPROVED REPORT EKG Measurement Heart [id number] <Conclusion> Normal sinus rhythm PRWP NSSTW changes Prolonged QTc
[2016-10-28] MEDS: Insulin Lispro (humaLOG) MEDIUM Coverage SC SCH ×3 (17:42→22:34)
[2016-10-28] MEDS ORDERED: Pneumococcal 23-Valent Vaccine IM ONE (18:15)
[2016-10-28] MEDS ORDERED: Influenza Vaccine 45 MCG/0.5 ml IM ONE (18:15)
[2016-10-28] MEDS ORDERED: Insulin Lispro 1 UNITS/0.01 ML SC ONE (23:45)
[2016-10-29] MEDS: Albuterol-Ipratrop 3 mg / 0.5 (3 ml) UD IH SCH ×4 (02:30→19:52)
[2016-10-29] MEDS ORDERED: Acetylcysteine 20% Inhal Soln (4ml) PO ONE (06:30)
[2016-10-29 07:55] LABS: ADD MANUAL DIFF? NO
--- NOTE | 2016-10-29 08:00 | CP.PCM.PN ---
<KimWade - Last Filed: 10/29/16 18:41> Subjective - Date & Time of Evaluation Date of Evaluation: 10/29/16 Time of Evaluation: 07:00 - Subjective Subjective: 46 year old female with past medical history notable for DM, HLD, HTN, CAD s/p CABG, chronic renal insufficiency presenting to the ED for acute onset of shortness of breath, chest pain and difficulty breathing. Per nurse, no acute events overnight. Pt. states the BiPAP worked and she slept well. She only complains of mild shortness of breath. She denies fever, chills, headache, chest pain, abdominal pain, N/V/D/C, changes in bowel/bladder, or extremity paresthesias. Objective - Vital Signs/Intake and Output Vital Signs (last 24 hours): Temp Pulse Resp BP Pulse Ox 97.4 F L 80 20 143/64 97 10/29/16 06:00 10/29/16 06:46 10/29/16 06:00 10/29/16 06:46 10/29/16 06:00 Intake and Output: 10/29/16 10/29/16 06:59 18:59 Intake Total 890 0 Output Total 250 600 Balance 640 -600 - Medications Medications: Current Medications Acetylcysteine (Acetylcysteine 20%) 6 ml PO BID [facility] Stop: 10/31/16 18:01 Albuterol/Ipratropium (Duoneb 3 Mg/0.5 Mg (3 Ml) Ud) 3 ml IH [id number] [facility] Last Admin: 10/29/16 02:30 Dose: 3 ml Aspirin (Ecotrin) 81 mg PO DAILY [facility] Last Admin: 10/29/16 06:46 Dose: 81 mg Atorvastatin Calcium (Lipitor) 40 mg PO DIN [facility] Last Admin: 10/28/16 17:44 Dose: 40 mg Hydralazine HCl (Apresoline) 25 mg PO TID [facility] Last Admin: 10/28/16 17:44 Dose: 25 mg Insulin Human Lispro (Humalog Med) 0 units SC ACHS [facility] PRN Reason: Protocol Last Admin: 10/28/16 22:34 Dose: 4 units Methylprednisolone (Solu-Medrol) 40 mg IV ONCE ONE Stop: 10/29/16 10:01 Metoprolol Tartrate (Lopressor) 25 mg PO BID [facility] Last Admin: 10/29/16 06:46 Dose: 25 mg Torsemide (Demadex) 10 mg PO BID [facility] Last Admin: 10/28/16 17:44 Dose: 10 mg - Constitutional Appears: Well, Non-toxic, No Acute Distress - Head Exam Head Exam: ATRAUMATIC, NORMOCEPHALIC - Eye Exam Eye Exam: EOMI - ENT Exam ENT Exam: Mucous Membranes Moist - Neck Exam Neck Exam: Full ROM - Respiratory Exam Respiratory Exam: Clear to Ausculation Bilateral, NORMAL BREATHING PATTERN. absent: Rhonchi, Wheezes - Cardiovascular Exam Cardiovascular Exam: REGULAR RHYTHM, RRR, +S1, +S2. absent: JVD - GI/Abdominal Exam GI & Abdominal Exam: Soft, Normal Bowel Sounds. absent: Tenderness - Extremities Exam Extremities Exam: Full ROM, Joint Swelling, Pedal Edema - Back Exam Back Exam: Full ROM, NORMAL INSPECTION. absent: CVA tenderness (L), CVA tenderness (R), rash noted - Neurological Exam Neurological Exam: Alert, Awake, Normal Gait, Oriented x3 - Psychiatric Exam Psychiatric exam: Normal Affect, Normal Mood - Skin Skin Exam: Dry, Intact, Normal Color, Warm Assessment and Plan - Assessment and Plan (Free Text) Assessment: 46 year old female with past medical history notable for left rib fracture, DM, HLD, HTN, CAD s/p CABG, depression, and chronic renal insufficiency presented to the ED for acute onset of shortness of breath and chest pain likely secondary to COPD exacerbation vs CHF exacerbation vs systolic dysfunction. Plan: Chest Pain -no longer complaining of CP -hx of CABG 2013 -hx of Stress Test Oct 22, 2016 showed EF of 21% per patient -Consult - Dr. Markham -cath procedure cancelled due to elevated Cr. will consult Nephroology for recs -added lasix -put pt. on Primacor drip -Chest Xray -Minimal bibasilar infiltrates and small effusions -No cardiomegaly -EKG -T wave abnormality possible lateral ischemia -prolonged QT, NSR @ 86bpm -Trop "+" x1 -scheduled for cath tomorrow with Dr. Markham -pt. previously had cardiac stress test EF 21% and already had the Cath procedure scheduled for 10/29 Shortness of Breath - resolving -Chest Xray -Minimal bibasilar infiltrates and small effusions -No cardiomegaly -Solumedrol 40mg -Duonebs q6 SELWYN -Duonebs q2 PRN -BiPAP -I 12 -E 6 -O2 40% -wear at night -Blood Cultures - NG after 24hrs -Ceftriaxone -Doxycycline 100mg BID Chronic Renal Insufficiency -not on dialysis, Stage 5 monitor CMP -BUN/Cr 50/3.6 on 10/28 -BUN/Cr 58/.42 on 10/29 Consult - Dr. Flores -Mucomyst prior to cath -Fe 101 -TIBC 203 low -% Sat 50 -Ferritin 361 Anemia Hgb 10.7 likely anemia of chronic disease Diabetes -CBC/CMP/Mg/Phos -glucose 329 on 10/28 -glucose 289 on 10/29 -HgA1c 8.7 high -Insulin Lispro Medium SS -added home med of Levemir 14u BID Hypertension -Hydralazine -Torsemide -ASA -Metoprolol Hyperlipidemia -Lipitor <Faith Leavitt - Last Filed: 10/31/16 16:38> Objective - Vital Signs/Intake and Output Vital Signs (last 24 hours): Temp Pulse Resp BP Pulse Ox 97.6 F 83 20 117/63 97 10/30/16 12:00 10/30/16 12:00 10/30/16 12:00 10/30/16 12:00 10/29/16 06:00 Intake and Output: 10/30/16 10/30/16 06:59 18:59 Intake Total 0 Balance 0 - Medications Medications: Current Medications Acetaminophen (Tylenol 325mg Tab) 650 mg PO Q6H PRN PRN Reason: Fever >100.4 F Last Admin: 10/30/16 09:50 Dose: 650 mg Acetylcysteine (Acetylcysteine 20%) 6 ml PO BID [facility] Stop: 10/31/16 18:01 Last Admin: 10/30/16 09:41 Dose: 6 ml Albuterol/Ipratropium (Duoneb 3 Mg/0.5 Mg (3 Ml) Ud) 3 ml IH [id number] [facility] Last Admin: 10/30/16 08:21 Dose: 3 ml Aspirin (Ecotrin) 81 mg PO DAILY [facility] Last Admin: 10/30/16 09:36 Dose: 81 mg Atorvastatin Calcium (Lipitor) 40 mg PO DIN [facility] Last Admin: 10/29/16 17:57 Dose: 40 mg Doxycycline Hyclate (Doryx) 100 mg PO Q12 [facility] PRN Reason: Protocol Last Admin: 10/30/16 09:36 Dose: 100 mg Hydralazine HCl (Apresoline) 25 mg PO TID [facility] Last Admin: 10/30/16 09:36 Dose: 25 mg Milrinone Lactate/Dextrose (Primacor 20mg/100ml D5w) 100 mls @ 12.125 mls/hr IV .Q8H15M PRN; Protocol; 0.33 MCG/KG/MIN PRN Reason: TITRATE PER MD ORDER Last Admin: 10/30/16 03:19 Dose: 12.1 mls/hr Insulin Detemir (Levemir) 14 unit SC BID [facility] Last Admin: 10/30/16 09:47 Dose: 14 unit Insulin Human Lispro (Humalog Med) 0 units SC ACHS [facility] PRN Reason: Protocol Last Admin: 10/30/16 12:32 Dose: 3 units Metoprolol Tartrate (Lopressor) 25 mg PO BID [facility] Last Admin: 10/30/16 09:36 Dose: 25 mg Prednisone (Prednisone Tab) 40 mg PO DAILY [facility] Sevelamer HCl (Renagel) 800 mg PO WM [facility] Last Admin: 10/30/16 12:32 Dose: 800 mg Torsemide (Demadex) 10 mg PO BID [facility] Last Admin: 10/30/16 09:36 Dose: 10 mg - Labs Labs: 10/30/16 05:00 10/30/16 05:00 Attending/Attestation - Attestation I have personally seen and examined this patient.: Yes I have fully participated in the care of the patient.: Yes I have reviewed all pertinent clinical information, including history, physical exam and plan: Yes Notes (Text): Patient seen and examined with resident. 46 year old female with obesity, IDDM, HTN, CAD s/p CABG, CKD secondary to nephrotic syndrome, cardiomyopathy who got admitted for evaluation of shortness of breath most likely due to copd exacerbation vs CHF exacerbation due to systolic dysfunction. She also had chest pain prior to coming to the hospital which has resolved now. 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 Still waiting for cpap to be delivered at home. SW consult pending. Stress test done on 10/22/2016 showed EF of 21% and fixed defect. EKG showed T wave abnormailty, possible lateral ischemia in lateral leads, prolong QT interval. Also has elevated troponins. Dr Markham has scheduled her for cardiac cath for . CXR showed minimal bibasilar infiltrates and small effusions. Patient was started on primaor and continued other home medications. Will continue duonebs, doxy and solumedrol taper. Nephrology consult appreciated. She has anemia of chronic disease. Dr Faith Leavitt
[2016-10-29] MEDS: Insulin Lispro (humaLOG) MEDIUM Coverage SC SCH ×4 (08:04→22:23)
[2016-10-29 08:07] LABS: EOS % 0.1 % (1.5-5.0); GRAN # 6.28 (1.4-6.5); GRAN % 82.9 % (50.0-68.0); HEMATOCRIT 32.8 % (36.0-48.0); LYMPH # 0.7 (1.2-3.4); MEAN CELL VOLUME 89.4 fL (80.0-105.0); MEAN CORPUSCULAR HEMOGLOBIN 29.2 pg (25.0-35.0); MEAN CORPUSCULAR HGB CONC 32.6 g/dl (31.0-37.0); MEAN PLATELET VOLUME 9.7 fl (7.0-11.0); MONO # 0.6 (0.1-0.6); PLATELET COUNT 334 10^3/uL (120.0-450.0); RED CELL DISTRIBUTION WIDTH 13.4 % (11.5-14.5); WHITE BLOOD COUNT 7.6 10^3/ul (4.5-11.0)
--- NOTE | 2016-10-29 08:08 | CON ---
DATE: 10/28/2016 CONSULTATION REQUESTED BY: Dr. Faith Leavitt. REASON FOR CONSULTATION: Stage V chronic kidney disease, anemia, hyperosmolar nonketotic syndrome, c ongestive heart failure. HISTORY OF PRESENT ILLNESS: The patient is a 46-year-old female. She presented to [facility]'s Emergency Department earlier today with a complaint of acute onset of shortness of breath. S he attempted to self-medicate with albuterol metered dose inhaler but without any relief. On arrival to the ED, the patient was noted to have a blood pressure of 190/105 with a heart rate of 87, breath ing at 18 breaths per minute with an oxygen saturation of 100%. Oral temperature was 97.5 degrees. She was noted to have respiratory distress and using accessory muscles of respiration when seen. The patient was given 1 gram of ceftriaxone as well as 500 mg of azithromycin intravenously and STAT Duo Neb. Laboratory studies revealed normal white blood cell count of 4900 with 78% neutrophilia and nor mocytic anemia with a hemoglobin of 11.6. Venous blood gas had a pH of 7.29 with a normal lactic aci d. Chemistry panel had a glucose of 329, but a BUN/creatinine of 50/3.6, and corrected calcium of 9. 2. Troponin I was 0.05, but N-terminal proBNP was elevated at 21,800. Chest x-ray did reveal minima l bibasilar infiltrates and small effusions. The patient was admitted to telemetry for further evalu ation and management. Of note, the creatinine of 3.6 that the patient had is better than the dischar creatinine of 5.8 less than 1 month ago. The patient does have a known history of COPD and family members believe that her COPD is triggered by her cat with whom she continues to live, although the patient is adamant that the cat does not sleep in the same room as her. She was recently discharged from a residential and is now back at home. The patient denies any smoking history. The patient de nied any chest pain or fevers, but she did have a cough. REVIEW OF SYSTEMS: Taken across all 10 systems and 14 points and is negative unless stated otherwise above. PAST MEDICAL HISTORY: Significant for type 2 diabetes mellitus that is insulin-dependent and uncontr olled, hypertension, dyslipidemia, coronary artery disease with history of CABG, stage IV chronic kid christina disease and nephrotic syndrome, presumably secondary to diabetic nephropathy, recently diagnosed obstructive sleep apnea for which she has been started on BiPAP, depression, and chronic ulcer of her left foot, which has been debrided. The patient underwent a CABG in 2013 at [facility]. She also has a known history of COPD and hyperphosphatemia and diabetic neuropathy. Also known history of congestive heart failure. MEDICATIONS PATIENT HAS BEEN TAKING AT HOME PRIOR TO ADMISSION: Include: Hydralazine 25 mg orally 3 times a day, torsemide 10 mg orally twice daily, Renagel 800 mg orally 3 times a day, metoprolol tar trate 25 mg orally twice daily, Levemir 12 units subcutaneously twice daily, heparin 5000 units subcu taneously every 8 hours, gabapentin 300 mg orally daily, Feosol 325 mg orally twice daily, famotidine 20 mg orally daily, Colace 100 mg orally twice daily, clopidogrel 75 mg orally daily, vitamin D3 200 0 units orally daily, atorvastatin 40 mg orally daily, aspirin 81 mg orally daily. ALLERGIES: The patient denied any drug allergies. SOCIAL HISTORY: Notable for the patient living at home. She has a cat. She does not smoke. She is exposed to secondhand smoke, however, with her children. She was born in [place]. There is no illicit drug use. She lives with her son. FAMILY HISTORY: Notable for the patient's parents having diabetes. Her father's side of the family also has liver cancer. PHYSICAL EXAMINATION: GENERAL APPEARANCE: I saw the patient sitting up in bed. She was in no acute distress and appeared to be fairly comfortable when I saw her. The patient was mentating clearly. VITAL SIGNS: Blood pressure is now 165/74 having been 194/110 earlier, heart rate is 81, respiratory rate is 18, oxygen saturation is 98% on 2 liters via nasal cannula. Oral temperature is 97.5 degree s. Since admission, I's and O's are 540/250. HEENT: The patient is normocephalic and atraumatic without any sinus tenderness. NECK: Supple with a full range of motion. Trachea is midline and freely movable. Thyroid is nonten oxana nor enlarged. I am unable to appreciate any jugular venous distention in this patient. CHEST: Lungs ryan on my exam have occasional wheezing, but faint bibasilar rales. Diaphragmatic e xcursion as well as air flow into both lungs ryan is bilaterally symmetrical. CARDIAC: Shows that she was irregularly irregular without any rubs. There are no heaves and the PMI is not displaced. ABDOMEN: Soft, distended and centrally obese, but nontender, without any rebounding, guarding or rig idity. There is no hepatosplenomegaly that I can appreciate. EXTREMITIES: Have 2+ edema. NEUROLOGIC: She is nonfocal. There is no clonus nor any asterixis. VASCULAR: Has no bruits. SKIN: Appear to be intact. LABORATORY STUDIES: White count is 4.9, H and H 10.5/31.8 with a platelet count of 254,000. MCV is 89.6. There are 78% neutrophils, 14% lymphocytes, 5% monocytes, 2% eosinophils. Venous pH on admiss ion was 7.29 with a normal lactic acid level. Sodium was 136, potassium was 4.6, chloride 105, bicar bonate 26, BUN/creatinine 50/3.6, with a glucose of 329, although this has gone up to 403. Total pro tein/albumin is 6.8/3 so that the calcium 8.4 corrects to 9.2. AST/ALT is 24/25. Alkaline phosphata se is 81. Troponin I is 0.05. N-terminal proBNP is 21,800. Beta hCG is 5.18. Chest x-ray as state d above as is EKG. IMPRESSION AND PLAN: The patient is a 46-year-old obese female (BMI 43.6 kg/m2) with type 2 diabetes mellitus that is uncontrolled with stage V chronic kidney disease and a baseline creatinine of appro ximately 3 with nephrotic syndrome, presumed secondary to diabetic nephropathy, hypertension, dyslipi demia, coronary artery disease with history of 3-vessel coronary artery bypass graft in 2013, obstruc tive sleep apnea, recently started on BiPAP, chronic obstructive pulmonary disease with chronic ulcer ation of her left foot, admitted with sudden onset of shortness of breath at home. Of note, she also had a markedly elevated blood pressure on admission. Since having been admitted, she feels better. The patient insists that she has been compliant with her home medications, but it seems that there m ay have been some indiscretions with respect to dietary intake. She did have a stress test approxima tely 1 week earlier that was abnormal revealing an ejection fraction of 27%. Since having been admit bernie, the patient was given 40 mg of Solu-Medrol and is on DuoNeb. The patient is noted to be edemato us and have some rales on exam as well as an elevated N-terminal proBNP. 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 If the patient is to undergo cardiac catheterization for her abnormal s tress test, she is certainly at elevated risk of contrast nephropathy and worsening renal function. I will start the patient on Mucomyst 1200 mg orally twice daily beginning prior to the cardiac cathet erization. Ordinarily treatment would also entail trying to optimize the patient's cardiac output by administering fluids; however, my concern would be that if we did show in this patient was an ejecti on fraction now of less than 30%, she would be unable to lie supine and we would precipitate acute de compensated congestive heart failure. For now, although the patient has edema this is secondary to n ephrotic syndrome as well, I would not diurese her for symptomatic relief of her edema nor do I think we need to give her intravenous fluids either, as this precipitate congestive heart failure. Rather , if she is to have a cardiac catheterization I believe on balance the safest option is to proceed wi th her current medication regimen in place. Blood pressure is in fact elevated at times and given he r known history of coronary artery disease, we certainly have room to increase her metoprolol as need ed. Also, we can attempt to optimize her cardiac output and thus her renal perfusion by increasing h er hydralazine for afterload reduction as well. The patient is clearly headed towards end-stage renal disease and although she does not require dialysis acutely, she will require it at some point in the near future. After she has undergone cardiac catheterization, we can then proceed with placement of an AV fistula; however, this could be done as an outpatient and not during this hospitalization. Fo r now, given the patient's known history of coronary artery disease, she also remains on aspirin as w ell as high intensity statin therapy with atorvastatin and is on metoprolol as stated above as well. We will need to control her glucose better and her hemoglobin A1c has been ordered again for tomorro w, but given the presence of microvascular disease a hemoglobin A1c of 6.5% would be ideal, although this does raise her risk for hypoglycemic episodes especially in a patient with known advanced chroni c kidney disease, as does she. The patient is also noted to be anemic, but with a normal MCV. I armando l check iron studies and if her transferrin saturation is less than 20% or her ferritin is less than 100, we will start the patient on intravenous iron. I will be following this complex patient closely for the above complex medical problems. I thank you very much for the courtesy of this consultation. Gary Flores MD cc: [id number] TT: 10/29/2016 08:07:44 Confirmation # [id number] Dictation # [id number] jn
[2016-10-29 08:26] LABS: IRON 101 ug/dL (45-180)
[2016-10-29 08:34] LABS: ALB/GLOB RATIO 0.8 (1.1-1.8); BILIRUBIN,TOTAL 0.3 mg/dL (0.2-1.3); CALCIUM 8.6 mg/dL (8.4-10.5); MAGNESIUM 1.9 mg/dL (1.7-2.2); PHOSPHOROUS 5.8 mg/dL (2.5-4.5); POTASSIUM 4.5 mmol/L (3.6-5.0); TOTAL PROTEIN 6.8 g/dL (5.8-8.3)
[2016-10-29] MEDS ORDERED: MethylPREDNISolone 40 mg Vial IV ONE (10:00)
[2016-10-29] MEDS ORDERED: methylPREDNISolone 40 GM in Sodium Chloride 0.9% 250 ML IV ONE (10:00)
[2016-10-29] MEDS: Acetylcysteine 20% Inhal Soln (4ml) PO SCH ×2 (10:07→19:20)
--- NOTE | 2016-10-29 10:46 | CON ---
DATE: 10/29/2016 HISTORY OF PRESENT ILLNESS: The patient is a 46-year-old woman who presents with shortness of breath . PAST MEDICAL HISTORY: Includes a history of coronary artery bypass surgery performed at [facility]. She underwent a stress test recently, which revealed multiple areas of ischemia with an ejection frac tion of 27%. In addition, she suffers from COPD, diabetes mellitus, renal insufficiency with a history of foot ulc ers in the past. In the past, she has also experienced a non-STEMI as well. SOCIAL HISTORY: The patient is a former smoker. REVIEW OF SYSTEMS: A 14-point review of systems was reviewed in detail. No angina noted, positive s hortness of breath, positive edema. Positive orthopnea. PHYSICAL EXAMINATION: GENERAL: The patient is an obese woman sitting in a chair in no acute distress. VITAL SIGNS: Blood pressure 143/77, heart rate is in the 70s. NECK: Negative JVD. LUNGS: Decreased breath sounds bilaterally. HEART: Reveals S1, S2. EXTREMITIES: 2+ edema. EKG shows normal sinus rhythm with no acute changes. LABORATORY DATA: Glucose is 289. The creatinine is 4.2 with a hemoglobin of 10.7. IMPRESSION: 1. Acute systolic congestive heart failure. 2. Ischemic dilated cardiomyopathy. 3. Coronary artery disease. 4. History of coronary artery bypass surgery. 5. Renal insufficiency. 6. Diabetes mellitus. 7. Chronic obstructive pulmonary disease. 8. Hypertension. 9. Hypercholesterolemia. 10. Obesity. Given these findings, we will start the patient on IV Primacor, weight adjusted. In addition, the patient will be placed on Lasix for better diuresis. We will speak to Dr. Flores, the dye feeder, on consultation. We will consider cardiac cathete rization only once evaluated by nephrology. The patient is at increased risk for contrast nephrotoxi city given her multiple comorbidities. I have discussed this with the patient in detail. Austin Markham MD cc: [id number] TT: 10/29/2016 10:46:19 Confirmation # [id number] Dictation # [id number] eliceo
[2016-10-29] MEDS ORDERED: Milrinone 20mg/100ml D5W 100 ML IV PRN (10:52)
[2016-10-29] MEDS ORDERED: Primacor 1 mg/ml Inj (10 ml) IVP ONE (11:07)
[2016-10-29] MEDS: Milrinone 20mg/100ml D5W 100 ML IV PRN (12:07)
[2016-10-29] MEDS ORDERED: Insulin Detemir 100 units/ml Vial (Levemir) SC SCH (18:00)
[2016-10-29] MEDS ORDERED: Insulin Lispro 1 UNITS/0.01 ML SC ONE (23:41)
--- NOTE | 2016-10-30 00:42 | PN ---
DATE: 10/29/2016 SUBJECTIVE: The patient was seen on telemetry. She stated that she had felt better. Of note, she w as upset because she found out that she would be unable to receive home oxygen with her current insur ance plan. She is currently on a milrinone infusion, but denied any palpitations and, as stated abov e, dyspnea had improved. She had no chest pain. OBJECTIVE: VITAL SIGNS: Blood pressure is 106/78, heart rate 77, oral temperature 98 degrees, respiratory rate is 18, oxygen saturation was 97% and FiO2 of 40%. I's and O's were documented as 1300/ 1000. HEENT: The patient was normocephalic, atraumatic. There was no sinus tenderness. I was unable to a ppreciate any jugular venous distension in this patient on account of her body habitus. Conjunctivae were neither pale nor icteric. CHEST: Lungs ryan were grossly clear to auscultation. There were no rales, rhonchi or wheezing th at I could appreciate. CARDIAC: Had a regular rate and rhythm without any rubs or gallops. ABDOMEN: Soft, centrally obese, but nontender, without any rebound, guarding or rigidity. EXTREMITIES: Had 2+ edema. NEUROLOGIC: The patient was nonfocal without any clonus nor any asterixis. VASCULAR: Had no bruits. SKIN: Intact. GENITOURINARY: Had no CVA tenderness and there was no suprapubic tenderness either. LABORATORY STUDIES: As follows: White count is 7.6, H and H 10.7/32.8 with a platelet count of 334, 000. There are 83% neutrophils, 9% lymphocytes, 8% monocytes. Sodium is 137, potassium 4.5, chlorid e is 104, bicarbonate 24, BUN/creatinine is with a glucose of 289. Phosphorus is 5.8. Calcium corrects to 9.4, hemoglobin A1c has decreased from 10.2 to 8.7 in the course of 2 months. Total pro tein 6.8/3.1 with a corrected calcium of 9.4. Blood cultures have no growth to date. IMAGING: There is no new imaging to report. IMPRESSION AND PLAN: The patient is a 46-year-old obese female (BMI 43.6 kg/m2) with type 2 diabetes mellitus that is insulin-dependent and uncontrolled, hypertension, dyslipidemia, stage V chronic kid christina disease with a baseline creatinine of approximately 3 with nephrotic syndrome, presumed secondary to diabetic nephropathy, coronary artery disease with history of 3-vessel coronary artery bypass gra ft in 2013 and with recently abnormal stress test, obstructive sleep apnea for which she was recently started on BiPAP, chronic obstructive pulmonary disease, chronic ulceration of her left foot, admitt ed with sudden onset of shortness of breath at home. 1. The patient's shortness of breath is secondary to both chronic obstructive pulmonary disease exac erbation with her cat being a likely allergen, as well as roaches from how the patient describes her home situation, as well as a component of congestive heart failure. 2. I agree with initiation of milrinone to improve cardiac output and improve delivery of diuretic t o the patient's kidneys. Overall, however, she does remain edematous because of her nephrotic syndro me and I would not attempt to fully diurese her so that the edema has resolved. 3. Given the patient's recently abnormal stress test, cardiac catheterization is under consideration , but the patient is showing an increased risk of contrast nephropathy and potentially developing acu te kidney injury that will make her dialysis dependent, which I have discussed with the patient. If she is to have a cardiac catheterization, I would avoid performing a ventriculogram and using only is o-osmolar contrast (Visipaque). We can repeat a chest x-ray tomorrow and, if there is no evidence of vascular congestion, then we can gently attempt to hydrate the patient before the procedure. 4. The patient is noted to have had normocytic anemia, which may very well be secondary to her under lying chronic kidney disease. Hemoglobin is at goal of between 10 to 11, but if it decreases any low er, we will check iron studies and start the patient on intravenous iron if her saturation is l ess than 20% or if less than 100. 5. Continue to attempt improved glycemic control with a goal hemoglobin ultimately of approximately 6.5% given the fact that the patient does have microvascular manifestations of diabetes. 6. For now, the patient is empirically on Mucomyst in the event that she is dialyzed that she does r eceive a cardiac catheterization tomorrow. I have explained to her that she is at risk of contrast n ephropathy with the procedure and she seems to understand. Review of systems, past medical history, social history and family history were all reviewed and ther e were no new changes. Gary Flores MD cc: [id number] TT: 10/30/2016 00:20:54 Confirmation # [id number] Dictation # [id number] mn
[2016-10-30] MEDS ORDERED: Insulin Lispro 1 UNITS/0.01 ML SC ONE (01:04)
[2016-10-30] MEDS: Albuterol-Ipratrop 3 mg / 0.5 (3 ml) UD IH SCH ×4 (01:50→20:09)
[2016-10-30] MEDS: Milrinone 20mg/100ml D5W 100 ML IV PRN ×3 (03:19→22:24)
[2016-10-30] MEDS ORDERED: DiphenhydrAMINE 50 mg/ml Inj IVP STA (05:24)
[2016-10-30 06:10] LABS: ADD MANUAL DIFF? NO
[2016-10-30 06:15] LABS: BASO # 0.01 K/mm3 (0.0-2.0); BASO % 0.1 % (0.0-3.0); EOS # 0.1 (0.0-0.7); EOS % 0.5 % (1.5-5.0); GRAN # 7.82 (1.4-6.5); HEMATOCRIT 29.2 % (36.0-48.0); LYMPH # 1.2 (1.2-3.4); LYMPH % 11.6 % (22.0-35.0); MEAN CELL VOLUME 88.8 fL (80.0-105.0); MEAN CORPUSCULAR HEMOGLOBIN 29.5 pg (25.0-35.0); MEAN CORPUSCULAR HGB CONC 33.2 g/dl (31.0-37.0); MEAN PLATELET VOLUME 9.6 fl (7.0-11.0); MONO # 0.9 (0.1-0.6); MONO % 8.8 % (1.0-6.0); PLATELET COUNT 365 10^3/uL (120.0-450.0); RED CELL DISTRIBUTION WIDTH 13.5 % (11.5-14.5); WHITE BLOOD COUNT 9.9 10^3/ul (4.5-11.0)
[2016-10-30 06:39] LABS: ALB/GLOB RATIO 0.9 (1.1-1.8); BILIRUBIN,TOTAL 0.2 mg/dL (0.2-1.3); CALCIUM 8.4 mg/dL (8.4-10.5); MAGNESIUM 1.8 mg/dL (1.7-2.2); POTASSIUM 4.1 mmol/L (3.6-5.0); TOTAL PROTEIN 6.1 g/dL (5.8-8.3)
[2016-10-30 06:48] LABS: PHOSPHOROUS 5.8 mg/dL (2.5-4.5)
[2016-10-30] MEDS: Insulin Lispro (humaLOG) MEDIUM Coverage SC SCH ×4 (08:24→22:04)
[2016-10-30] MEDS: Acetylcysteine 20% Inhal Soln (4ml) PO SCH ×2 (09:41→17:28)
[2016-10-30] MEDS: Insulin Detemir 100 units/ml Vial (Levemir) SC SCH ×2 (09:47→17:34)
--- NOTE | 2016-10-30 11:36 | RAD ---
HISTORY: Pulmonary congestion COMPARISON: 10/28/2016 FINDINGS: LUNGS: There is bibasilar airspace disease. PLEURA: There are small pleural effusions. No pneumothorax. CARDIOVASCULAR: The heart is normal in size. Status post median sternotomy OSSEOUS STRUCTURES: No significant abnormalities. VISUALIZED UPPER ABDOMEN: Normal. OTHER FINDINGS: None. IMPRESSION: No significant interval change in bibasilar atelectasis/pneumonia and small pleural effusions. No significant pulmonary venous congestion.
--- NOTE | 2016-10-30 14:57 | CP.PCM.PN ---
<AlvarezWade houston - Last Filed: 10/30/16 19:42> Subjective - Date & Time of Evaluation Date of Evaluation: 10/30/16 Time of Evaluation: 06:45 - Subjective Subjective: 46 year old female with past medical history notable for DM, HLD, HTN, CAD s/p CABG, chronic renal insufficiency presenting to the ED for acute onset of shortness of breath, chest pain and difficulty breathing. Per nurse, pt. complained of cramping in her right leg and had blood sugars of 499. Today, pt. states the BiPAP was uncomfortable but she was able to get some sleep. She also complains of mild headache and dry cough. She denies fever, chills, headache, chest pain, difficulty breathing, abdominal pain, N/V/D/C, or changes in bowel/ bladder. Objective - Vital Signs/Intake and Output Vital Signs (last 24 hours): Temp Pulse Resp BP Pulse Ox 97.6 F 75 20 110/82 97 10/30/16 12:00 10/30/16 14:29 10/30/16 12:00 10/30/16 14:29 10/29/16 06:00 Intake and Output: 10/30/16 10/30/16 06:59 18:59 Intake Total 0 Balance 0 - Medications Medications: Current Medications Acetaminophen (Tylenol 325mg Tab) 650 mg PO Q6H PRN PRN Reason: Fever >100.4 F Last Admin: 10/30/16 09:50 Dose: 650 mg Acetylcysteine (Acetylcysteine 20%) 6 ml PO BID [facility] Stop: 10/31/16 18:01 Last Admin: 10/30/16 09:41 Dose: 6 ml Albuterol/Ipratropium (Duoneb 3 Mg/0.5 Mg (3 Ml) Ud) 3 ml IH [id number] [facility] Last Admin: 10/30/16 13:22 Dose: 3 ml Aspirin (Ecotrin) 81 mg PO DAILY [facility] Last Admin: 10/30/16 09:36 Dose: 81 mg Atorvastatin Calcium (Lipitor) 40 mg PO DIN [facility] Last Admin: 10/29/16 17:57 Dose: 40 mg Doxycycline Hyclate (Doryx) 100 mg PO Q12 [facility] PRN Reason: Protocol Last Admin: 10/30/16 09:36 Dose: 100 mg Hydralazine HCl (Apresoline) 25 mg PO TID [facility] Last Admin: 10/30/16 14:29 Dose: 25 mg Milrinone Lactate/Dextrose (Primacor 20mg/100ml D5w) 100 mls @ 12.125 mls/hr IV .Q8H15M PRN; Protocol; 0.33 MCG/KG/MIN PRN Reason: TITRATE PER MD ORDER Last Admin: 10/30/16 13:41 Dose: 12.1 mls/hr Insulin Detemir (Levemir) 14 unit SC BID [facility] Last Admin: 10/30/16 09:47 Dose: 14 unit Insulin Human Lispro (Humalog Med) 0 units SC ACHS [facility] PRN Reason: Protocol Last Admin: 10/30/16 12:32 Dose: 3 units Metoprolol Tartrate (Lopressor) 25 mg PO BID [facility] Last Admin: 10/30/16 09:36 Dose: 25 mg Prednisone (Prednisone Tab) 40 mg PO DAILY [facility] Last Admin: 10/30/16 14:29 Dose: 40 mg Sevelamer HCl (Renagel) 800 mg PO WM [facility] Last Admin: 10/30/16 12:32 Dose: 800 mg Torsemide (Demadex) 10 mg PO BID [facility] Last Admin: 10/30/16 09:36 Dose: 10 mg - Labs Labs: 10/30/16 05:00 10/30/16 05:00 - Constitutional Appears: Non-toxic, No Acute Distress - Head Exam Head Exam: ATRAUMATIC - Eye Exam Eye Exam: EOMI - ENT Exam ENT Exam: Mucous Membranes Moist - Neck Exam Neck Exam: Full ROM - Respiratory Exam Respiratory Exam: Clear to Ausculation Bilateral, NORMAL BREATHING PATTERN - Cardiovascular Exam Cardiovascular Exam: REGULAR RHYTHM, RRR, +S1, +S2 - GI/Abdominal Exam GI & Abdominal Exam: Soft, Normal Bowel Sounds. absent: Tenderness - Extremities Exam Extremities Exam: Calf Tenderness, Joint Swelling, Pedal Edema - Back Exam Back Exam: absent: CVA tenderness (L), CVA tenderness (R), paraspinal tenderness , rash noted - Neurological Exam Neurological Exam: Alert, Awake, Normal Gait, Oriented x3 - Psychiatric Exam Psychiatric exam: Normal Affect, Normal Mood - Skin Skin Exam: Dry, Intact, Normal Color, Warm Assessment and Plan - Assessment and Plan (Free Text) Assessment: 46 year old female with past medical history of DM, HLD, HTN, CAD s/p CABG, depression, and chronic renal insufficiency presented to the ED for acute onset of shortness of breath and chest pain likely secondary to COPD exacerbation vs CHF exacerbation vs systolic dysfunction. Plan: Chest Pain -no longer complaining of CP -hx of CABG 2013 -hx of Stress Test Oct 22, 2016 showed EF of 21% per patient -Consult - Dr. Markham -cath procedure cancelled due to elevated Cr. will consult Nephroology for recs -added lasix -put pt. on Primacor drip -cath scheduled as outpt for 11/05 in the AM -Chest Xray 10/28 -Minimal bibasilar infiltrates and small effusions -No cardiomegaly -Chest Xray 10/30 -No signs of Pulmonary congestion -EKG -T wave abnormality possible lateral ischemia -prolonged QT, NSR @ 86bpm -Trop "+" x1 Shortness of Breath - resolving -Chest Xray -Minimal bibasilar infiltrates and small effusions -No cardiomegaly -Solumedrol 40mg PO -Duonebs q6 SELWYN -Duonebs q2 PRN -BiPAP -I 12 -E 6 -O2 40% -wear at night -Blood Cultures - NG after 48hrs -Ceftriaxone -Doxycycline 100mg BID Leg Cramping/Pain -BL Venous Duplex Dopplers - negative for DVT Chronic Renal Insufficiency -not on dialysis, Stage 5 monitor CMP -BUN/Cr 50/3.6 on 10/28 -BUN/Cr 58/4.2 on 10/29 -BUN/Cr 62/4.7 on 10/29 Consult - Dr. Flores -Mucomyst prior to cath Anemia Hgb 10.7 likely anemia of chronic disease vs iron def -Fe 101 -TIBC 203 low -% Sat 50 -Ferritin 361 Diabetes -CBC/CMP/Mg/Phos -glucose 329 on 10/28 -glucose 289 on 10/29 -glucose 243 on 10/30 -HgA1c 8.7 high -Insulin Lispro Medium SS -added home med of Levemir 12u BID 10/29 -increased Levemire to 14u 10/30 due to night time glucose at 499 Hypertension -Hydralazine -Torsemide -ASA -Metoprolol Hyperlipidemia -Lipitor Hyperphosphatemia -Renagel <Leavitt,Irfana B - Last Filed: 10/31/16 16:45> Objective - Vital Signs/Intake and Output Vital Signs (last 24 hours): Temp Pulse Resp BP Pulse Ox 97.4 F L 75 18 129/64 99 10/31/16 11:58 10/31/16 15:31 10/31/16 11:58 10/31/16 15:31 10/31/16 05:27 Intake and Output: 10/31/16 10/31/16 06:59 18:59 Intake Total 555 900 Output Total 375 775 Balance 180 125 - Medications Medications: Current Medications Acetaminophen (Tylenol 325mg Tab) 650 mg PO Q6H PRN PRN Reason: Fever >100.4 F Last Admin: 10/30/16 09:50 Dose: 650 mg Acetylcysteine (Acetylcysteine 20%) 6 ml PO BID [facility] Stop: 10/31/16 18:01 Last Admin: 10/31/16 10:48 Dose: 6 ml Albuterol/Ipratropium (Duoneb 3 Mg/0.5 Mg (3 Ml) Ud) 3 ml IH [id number] [facility] Last Admin: 10/31/16 13:13 Dose: 3 ml Aspirin (Ecotrin) 81 mg PO DAILY [facility] Last Admin: 10/31/16 10:47 Dose: 81 mg Atorvastatin Calcium (Lipitor) 40 mg PO DIN [facility] Last Admin: 10/30/16 17:27 Dose: 40 mg Cholecalciferol (Vitamin D) 2,000 iu PO DAILY [facility] Last Admin: 10/31/16 10:47 Dose: 2,000 iu Clopidogrel Bisulfate (Plavix) 75 mg PO DAILY [facility] Last Admin: 10/31/16 10:46 Dose: 75 mg Docusate Sodium (Colace) 100 mg PO BID [facility] Last Admin: 10/31/16 10:47 Dose: 100 mg Doxycycline Hyclate (Doryx) 100 mg PO Q12 [facility] PRN Reason: Protocol Last Admin: 10/31/16 10:47 Dose: 100 mg Famotidine (Pepcid) 20 mg PO 1000,2200 [facility] Last Admin: 10/31/16 10:47 Dose: 20 mg Ferrous Sulfate (Feosol) 324 mg PO TID [facility] Last Admin: 10/31/16 10:46 Dose: 324 mg Gabapentin (Neurontin) 300 mg PO DAILY [facility] PRN Reason: Protocol Last Admin: 10/31/16 10:47 Dose: 300 mg Heparin Sodium (Porcine) (Heparin) 5,000 units SC Q8 SELWYN PRN Reason: Protocol Last Admin: 10/31/16 13:26 Dose: 5,000 units Hydralazine HCl (Apresoline) 25 mg PO TID [facility] Last Admin: 10/31/16 13:25 Dose: 25 mg Milrinone Lactate/Dextrose (Primacor 20mg/100ml D5w) 100 mls @ 12.125 mls/hr IV .Q8H15M PRN; Protocol; 0.33 MCG/KG/MIN PRN Reason: TITRATE PER MD ORDER Last Admin: 10/31/16 15:31 Dose: 12.1 mls/hr Insulin Detemir (Levemir) 14 unit SC BID [facility] Last Admin: 10/31/16 10:51 Dose: 14 unit Insulin Human Lispro (Humalog Med) 0 units SC ACHS [facility] PRN Reason: Protocol Last Admin: 10/31/16 12:49 Dose: 8 units Metoprolol Tartrate (Lopressor) 25 mg PO BID [facility] Last Admin: 10/31/16 10:48 Dose: 25 mg Prednisone (Prednisone Tab) 30 mg PO DAILY [facility] Sevelamer HCl (Renagel) 1,600 mg PO WM [facility] Last Admin: 10/31/16 13:25 Dose: 1,600 mg Torsemide (Demadex) 10 mg PO BID [facility] Last Admin: 10/31/16 10:47 Dose: 10 mg - Labs Labs: 10/31/16 13:04 10/31/16 13:04 APTT 21.0 Seconds (23.7-30.8) L 10/31/16 13:04 Attending/Attestation - Attestation I have personally seen and examined this patient.: Yes I have fully participated in the care of the patient.: Yes I have reviewed all pertinent clinical information, including history, physical exam and plan: Yes Notes (Text): Patient seen and examined with resident. 46 year old female with obesity, IDDM, HTN, CAD s/p CABG, CKD secondary to nephrotic syndrome, cardiomyopathy who got admitted for evaluation of shortness of breath most likely due to copd exacerbation vs CHF exacerbation due to systolic dysfunction. She also had chest pain prior to coming to the hospital which has resolved now. 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 Still waiting for cpap to be delivered at home. SW consult pending. Stress test done on 10/22/2016 showed EF of 21% and fixed defect. EKG showed T wave abnormailty, possible lateral ischemia in lateral leads, prolong QT interval. Also has elevated troponins. Dr Markham has rescheduled her for cardiac cath for . CXR showed minimal bibasilar infiltrates and small effusions. Patient was started on primacor and continued other home medications. Will continue duonebs, doxy and prednisone taper. Nephrology consult appreciated. She has anemia of chronic disease. 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 Will continue to monitor. Dr Faith Leavitt
--- NOTE | 2016-10-30 16:09 | PN ---
DATE: 10/30/2016 The patient is currently seen on telemetry. Last night she reports having had dyspnea. She also sta leona that she is anxious and fearful that she will not have all the CPAP supplies she needs when she i s ultimately discharged home. She denies any chest pain. VITAL SIGNS ARE FOLLOWS: Blood pressure is 110/82, heart rate 75, oral temperature is 97.6, respi ratory rate is 18. I's and O's were documented as 1000/1000. The remainder of the exam was as follows: The patient was normocephalic and atraumatic. She did appear to be pale, her skin, but not conjuncti vae. I was unable to appreciate any jugular venous distension on account of the patient's body habitus. LUNG LANDAVERDE: Had some rales at both bases. There was no wheezing or rhonchi, diaphragmatic excursio n, and the airflow of both lung landaverde was bilaterally symmetrical. CARDIAC EXAMINATION: Had a regular rate and rhythm without any rubs or gallops. ABDOMEN: Soft, distended, centrally obese but nontender, without any rebound, guarding or rigidity. There is no hepatosplenomegaly. EXTREMITIES: Had 2+ edema. NEUROLOGICALLY: She was nonfocal without any clonus nor any asterixis. VASCULAR EXAMINATION: Had no bruits. SKIN: Intact. LABORATORY STUDIES ARE FOLLOWS: White count is 4.9, H and H is 10.6/31.8, with a platelet count o f 254,000. White count is 9.9, H and H 9.7/29.2, with a platelet count of 365,000. MCV is 89. Ther e are 79% neutrophils, 12% lymphocytes, 9% monocytes, 1% eosinophils. Sodium is 136, potassium is 4. 1, chloride 105, bicarbonate 22, BUN/creatinine 62/4.7, with a glucose of 243. Calcium is 8.4 but c orrects to 9.2, is 2.9, phosphorus is 5.8. Chest x-ray from this morning revealed bibasilar atelectasis versus pneumonia with small pleural effu sions. IMPRESSION AND PLAN: The patient a 46-year-old obese female (BMI 43.6 kg/m2) with type 2 diabetes me llitus that is insulin-dependent and uncontrolled, hypertension, dyslipidemia, late stage IV chronic kidney disease with a baseline creatinine of approximately 3, with nephrotic syndrome secondary to di abetic nephropathy, coronary artery disease with history of 3-vessel coronary artery bypass graft in 2014, and recently abnormal stress test, obstructive sleep apnea for which she was recently started o n BiPAP as an outpatient, chronic obstructive pulmonary disease, chronic ulceration of her left foot, admitted with sudden onset of shortness of breath at home secondary to both chronic obstructive pulm onary disease (exacerbated by her cat which she refuses to sacrifice) as well as congestive heart phylicia lure. 1. The patient's lung exam sounds worse to me than her chest x-ray appears, and I would continue to d iurese her. She is currently on torsemide 10 mg orally twice daily, and she did report having dyspne a overnight despite also being on steroids. She also remains on milrinone for decreased LV systolic function. Echocardiography in 08/2016 revealed moderate LVH, severely decreased left ventricular sys tolic function, moderate pulmonary hypertension with preserved, RV systolic function. 2. The patient is inevitably headed towards dialysis. She does not need it acutely now, however, sin ce she has no uremic symptomatology nor any electrolyte abnormalities. Certainly, however, cardiac c atheterization would pose an additional burden and may result in the patient requiring dialysis, fabian salguero I explained to her. I also explained to her that she is inevitably headed towards requiring dialys is anyway. 3. If cardiac catheterization is to be done (for her recently abnormal stress test) then she will req uire Mucomyst 1200 mg orally twice daily for 1 day before the cardiac catheterization, and for the da y of the catheterization. 4. After the patient has cardiac catheterization she will require evaluation for placement of an AV f istula for hemodialysis, but this can be done as an outpatient. 5. If the patient becomes symptomatic from her renal dysfunction (which she is not yet), then she wou ld require urgent dialysis via PermCath, but she is not at that point yet and there is no clinical be nefit to dialyze the patient preemptively prior to catheterization, as it does not change outcomes. 6. We will ask case management to assist the patient with some of her anxieties about eventual discha rge home; in particular with her CPAP. 7. The patient's hemoglobin is now noted to have decreased. I have requested iron studies, and if he r transferrin saturation is less than 20% or ferritin is less than 100, we will then start the patien t on intravenous iron. 8. Continue hydralazine for afterload reduction. 9. For chronic obstructive pulmonary disease exacerbation. The patient remains on prednisone. 10. The patient requires improved glycemic control with a goal hemoglobin A1c of 6.5% since she does have microvascular manifestations of disease. 11. For hyperphosphatemia we will increase the patient's Renagel from 800 mg orally with each meal to 1600 mg orally with each meal. Review of systems, past medical history, social history, and family history were all reviewed, and th ere are no new changes. Gary Flores MD cc: [id number] TT: 10/30/2016 15:31:04 Confirmation # [id number] Dictation # [id number] 10/30/2016 15:08:51
--- NOTE | 2016-10-30 16:35 | US ---
HISTORY: Leg pain and swelling. Evaluate for DVT PHYSICIAN(S): Austin Muse MD. TECHNIQUE: Duplex sonography and color-flow Doppler with graded compression were used to evaluate the deep venous systems of both lower extremities. The exam is very limited by body habitus and edema. The lower femoral veins and tibial veins are not adequately seen. FINDINGS: The visualized deep venous systems of both lower extremities are sonographically normal and compressible. Normal wave forms and augmentation are seen. There is no sonographic evidence for deep venous thrombosis in the visualized segments of both lower extremities. IMPRESSION: No sonographic evidence for deep venous thrombosis in the visualized segments of both lower extremities. Very limited study
--- NOTE | 2016-10-30 17:54 | PN ---
DATE: 10/30/2016 I am covering for Dr. Austin Markham. The patient denies chest pain. She is complaining of significant leg swelling. VITAL SIGNS: Blood pressure 110/82, heart rate 75, temperature 97.6, respiration 20. HENT: Pale conjunctivae. CHEST: Absent breath sounds at the bases. HEART: S1, S2 regular. EXTREMITIES: 3+ pitting edema. LABORATORIES: Hemoglobin and hematocrit 9.7 and 29.2, white count and platelet count are within norm al limits. Today's BUN and creatinine are 62 and 4.7, glucose is 243. ASSESSMENT: 1. Acute systolic heart failure. 2. Coronary artery disease, status post coronary bypass surgery. 3. Advanced renal insufficiency. 4. Uncontrolled diabetes mellitus. 5. History of depression. RECOMMENDATIONS: Continue hydralazine at 25 mg t.i.d., Demadex at 10 mg orally twice a day, aspirin 81 mg once a day, subcutaneous heparin 5000 units q. 8 hours, Lipitor at 40 mg once a day, Lopressor 25 mg twice a day, Plavix 75 mg once a day, and prednisone at 40 mg orally daily. Continue milrinone infusion. Conservative medical approach in view of underlying advanced renal insufficiency. Gustavo Cintron MD cc: [id number] TT: 10/30/2016 17:54:19 Confirmation # [id number] Dictation # [id number] jn
[2016-10-31] MEDS: Albuterol-Ipratrop 3 mg / 0.5 (3 ml) UD IH SCH ×4 (01:28→21:05)
[2016-10-31] MEDS: Milrinone 20mg/100ml D5W 100 ML IV PRN ×2 (05:42→15:31)
[2016-10-31] MEDS: Insulin Lispro (humaLOG) MEDIUM Coverage SC SCH ×4 (08:37→22:38)
[2016-10-31] MEDS: Acetylcysteine 20% Inhal Soln (4ml) PO SCH ×2 (10:48→18:30)
[2016-10-31] MEDS: Insulin Detemir 100 units/ml Vial (Levemir) SC SCH (10:51)
[2016-10-31 13:11] LABS: ADD MANUAL DIFF? NO
[2016-10-31 13:13] LABS: GRAN # 7.64 (1.4-6.5); GRAN % 87.2 % (50.0-68.0); HEMATOCRIT 31.4 % (36.0-48.0); LYMPH # 0.7 (1.2-3.4); LYMPH % 7.6 % (22.0-35.0); MEAN CELL VOLUME 88.7 fL (80.0-105.0); MEAN CORPUSCULAR HEMOGLOBIN 29.4 pg (25.0-35.0); MEAN CORPUSCULAR HGB CONC 33.1 g/dl (31.0-37.0); MEAN PLATELET VOLUME 9.5 fl (7.0-11.0); MONO # 0.5 (0.1-0.6); MONO % 5.2 % (1.0-6.0); PLATELET COUNT 340 10^3/uL (120.0-450.0); RED CELL DISTRIBUTION WIDTH 13.5 % (11.5-14.5); WHITE BLOOD COUNT 8.8 10^3/ul (4.5-11.0)
[2016-10-31 13:22] LABS: ALB/GLOB RATIO 0.8 (1.1-1.8); BILIRUBIN,TOTAL 0.3 mg/dL (0.2-1.3); CALCIUM 8.1 mg/dL (8.4-10.5); MAGNESIUM 1.8 mg/dL (1.7-2.2); PHOSPHOROUS 5.5 mg/dL (2.5-4.5); POTASSIUM 4.3 mmol/L (3.6-5.0); TOTAL PROTEIN 6.1 g/dL (5.8-8.3)
--- NOTE | 2016-10-31 15:11 | PN ---
DATE: 10/31/2016 The patient's shortness of breath has improved. She is still experiencing significant leg swelling. PHYSICAL EXAMINATION: VITAL SIGNS: Blood pressure 123/66, heart rate 98, temperature 97.4, respirations 18. HEENT: Pale conjunctivae. CHEST: Absent breath sounds over the bases and bilateral rhonchi. HEART: S1, S2 regular. EXTREMITIES: 3+ pitting edema. LABORATORIES: Hemoglobin and hematocrit 10.4 and 31.4, white count and platelet count are within nor mal limits. SMA-7: Sodium 132, potassium 4.3, chloride 103, CO2 19, glucose 385. BUN 66, creatinin e 4.8. Calcium is 8.1. Venous Doppler of lower extremity performed yesterday: No sonographic evide nce of DVT in the visualized segments. ASSESSMENT: 1. Congestive heart failure. 2. Ischemic cardiomyopathy. 3. Coronary artery disease, status post coronary artery bypass surgery. 4. Uncontrolled diabetes mellitus. 5. Advanced renal insufficiency and nephrotic syndrome. RECOMMENDATIONS: Continue current hydralazine 25 mg t.i.d., aspirin 81 mg once a day, subcutaneous h eparin at 5000 units q. 8 hours, Lipitor at 40 mg once a day, Lopressor 25 mg twice a day, Plavix 75 mg once a day, milrinone infusion. The plan is to perform cardiac catheterization by Dr. Rashi sykes. Gustavo Cintron MD cc: [id number] TT: 10/31/2016 15:10:52 Confirmation # [id number] Dictation # [id number] tn
--- NOTE | 2016-10-31 16:23 | CP.PCM.PN ---
<Galileo Gamboa - Last Filed: 10/31/16 16:13> Subjective - Date & Time of Evaluation Date of Evaluation: 10/31/16 Time of Evaluation: 08:14 - Subjective Subjective: Pt seen and examined. Pt reports that she is feeling well today. Pt reports pain in her knees. Pt denies fever, chills, shortness of breath, nausea, vomiting, diarrhea. Objective - Vital Signs/Intake and Output Vital Signs (last 24 hours): Temp Pulse Resp BP Pulse Ox 97.4 F L 75 18 129/64 99 10/31/16 11:58 10/31/16 15:31 10/31/16 11:58 10/31/16 15:31 10/31/16 05:27 Intake and Output: 10/31/16 10/31/16 06:59 18:59 Intake Total 555 900 Output Total 375 775 Balance 180 125 - Medications Medications: Current Medications Acetaminophen (Tylenol 325mg Tab) 650 mg PO Q6H PRN PRN Reason: Fever >100.4 F Last Admin: 10/30/16 09:50 Dose: 650 mg Acetylcysteine (Acetylcysteine 20%) 6 ml PO BID [facility] Stop: 10/31/16 18:01 Last Admin: 10/31/16 10:48 Dose: 6 ml Albuterol/Ipratropium (Duoneb 3 Mg/0.5 Mg (3 Ml) Ud) 3 ml IH [id number] [facility] Last Admin: 10/31/16 13:13 Dose: 3 ml Aspirin (Ecotrin) 81 mg PO DAILY [facility] Last Admin: 10/31/16 10:47 Dose: 81 mg Atorvastatin Calcium (Lipitor) 40 mg PO DIN [facility] Last Admin: 10/30/16 17:27 Dose: 40 mg Cholecalciferol (Vitamin D) 2,000 iu PO DAILY [facility] Last Admin: 10/31/16 10:47 Dose: 2,000 iu Clopidogrel Bisulfate (Plavix) 75 mg PO DAILY [facility] Last Admin: 10/31/16 10:46 Dose: 75 mg Docusate Sodium (Colace) 100 mg PO BID [facility] Last Admin: 10/31/16 10:47 Dose: 100 mg Doxycycline Hyclate (Doryx) 100 mg PO Q12 [facility] PRN Reason: Protocol Last Admin: 10/31/16 10:47 Dose: 100 mg Famotidine (Pepcid) 20 mg PO 1000,2200 [facility] Last Admin: 10/31/16 10:47 Dose: 20 mg Ferrous Sulfate (Feosol) 324 mg PO TID [facility] Last Admin: 10/31/16 10:46 Dose: 324 mg Gabapentin (Neurontin) 300 mg PO DAILY [facility] PRN Reason: Protocol Last Admin: 10/31/16 10:47 Dose: 300 mg Heparin Sodium (Porcine) (Heparin) 5,000 units SC Q8 [facility] PRN Reason: Protocol Last Admin: 10/31/16 13:26 Dose: 5,000 units Hydralazine HCl (Apresoline) 25 mg PO TID [facility] Last Admin: 10/31/16 13:25 Dose: 25 mg Milrinone Lactate/Dextrose (Primacor 20mg/100ml D5w) 100 mls @ 12.125 mls/hr IV .Q8H15M PRN; Protocol; 0.33 MCG/KG/MIN PRN Reason: TITRATE PER MD ORDER Last Admin: 10/31/16 15:31 Dose: 12.1 mls/hr Insulin Detemir (Levemir) 14 unit SC BID [facility] Last Admin: 10/31/16 10:51 Dose: 14 unit Insulin Human Lispro (Humalog Med) 0 units SC ACHS [facility] PRN Reason: Protocol Last Admin: 10/31/16 12:49 Dose: 8 units Metoprolol Tartrate (Lopressor) 25 mg PO BID [facility] Last Admin: 10/31/16 10:48 Dose: 25 mg Prednisone (Prednisone Tab) 40 mg PO DAILY [facility] Last Admin: 10/31/16 10:46 Dose: 40 mg Sevelamer HCl (Renagel) 1,600 mg PO WM [facility] Last Admin: 10/31/16 13:25 Dose: 1,600 mg Torsemide (Demadex) 10 mg PO BID [facility] Last Admin: 10/31/16 10:47 Dose: 10 mg - Labs Labs: 10/31/16 13:04 10/31/16 13:04 APTT 21.0 Seconds (23.7-30.8) L 10/31/16 13:04 - Constitutional Appears: No Acute Distress - Head Exam Head Exam: ATRAUMATIC - Eye Exam Eye Exam: EOMI, PERRL - ENT Exam ENT Exam: Mucous Membranes Moist. absent: Mucous Membranes Dry - Respiratory Exam Respiratory Exam: Clear to Ausculation Bilateral. absent: Rales, Rhonchi, Wheezes - Cardiovascular Exam Cardiovascular Exam: +S1, +S2. absent: Gallop, Rubs - GI/Abdominal Exam GI & Abdominal Exam: Soft. absent: Distended, Guarding, Tenderness - Extremities Exam Extremities Exam: Pedal Edema - Neurological Exam Neurological Exam: Alert, Awake, Oriented x3 - Psychiatric Exam Psychiatric exam: Normal Affect, Normal Mood - Skin Skin Exam: Normal Color, Warm Assessment and Plan - Assessment and Plan (Free Text) Assessment: Acute on Chronic CHF: Troponin x 1 - 0.05 Pro-BNP 59419 Initial CXR - minimal bibasilar infiltrates and small effusions, no changes from previous CXR on last admission (please see full report) Repeat CXR - no interval changes (please see full report) Lower Extemity venous ultrasound - negative for DVTs, limited study (please see full report) Cardiology, Dr. Cintron, consulted. Help appreciated. Cardiology recommends conservative approach for now, due to advanced renal insufficiency Milrinone drip Torsemide 10 mg po bid COPD Exacerbation: Afebrile, nontachycardic No leukocytosis Blood cultures negative after 3 days Acetylcysteine 6 ml po bid Duonebs q6h Doxycycline 100 mg po q12h Prednisone 40 mg po qd End-Stage Renal Disease: Bun/Cr - 66/4.8 Nephrology, Dr. Flores, consulted. Help appreciated. As per sales team manager, pt will inevitably require dialysis; does not need it acutely now, since pt has now uremic symptomatoly nor any electrolyte abnormalities Hyperphosphatemia: Renagel 1600 mg po wm Coronary Artery Disease: Plavix 75 mg po qd Lipitor 40 mg po din Aspirin 81 mg po qd Lopressor 25 mg po bid HTN: Lopressor 25 mg po bid Hydralazine 25 mg po tid Hypercholesterolemia: Lipitor 40 mg po din Diabetes Mellitus: Glucose -385 Accuchecks Humalog sliding scale Levemir 14 units sc bid Peripheral neuropathy: Neurontin 300 mg po qd Anemia: H/H: 10.4/31.4 Feosol 324 mg po tid Prophylactic Measures: GI: Pepcid 20 mg po bid DVT: hperarin 5000 units sc q8h Vitamin D 2000 units iu po qd Tylenol 650 mg po q6h prn for fever > 100.4 <Leavitt,Irfana B - Last Filed: 10/31/16 16:48> Objective - Vital Signs/Intake and Output Vital Signs (last 24 hours): Temp Pulse Resp BP Pulse Ox 97.4 F L 75 18 129/64 99 10/31/16 11:58 10/31/16 15:31 10/31/16 11:58 10/31/16 15:31 10/31/16 05:27 Intake and Output: 10/31/16 10/31/16 06:59 18:59 Intake Total 555 900 Output Total 375 775 Balance 180 125 - Medications Medications: Current Medications Acetaminophen (Tylenol 325mg Tab) 650 mg PO Q6H PRN PRN Reason: Fever >100.4 F Last Admin: 10/30/16 09:50 Dose: 650 mg Acetylcysteine (Acetylcysteine 20%) 6 ml PO BID [facility] Stop: 10/31/16 18:01 Last Admin: 10/31/16 10:48 Dose: 6 ml Albuterol/Ipratropium (Duoneb 3 Mg/0.5 Mg (3 Ml) Ud) 3 ml IH [id number] [facility] Last Admin: 10/31/16 13:13 Dose: 3 ml Aspirin (Ecotrin) 81 mg PO DAILY [facility] Last Admin: 10/31/16 10:47 Dose: 81 mg Atorvastatin Calcium (Lipitor) 40 mg PO DIN [facility] Last Admin: 10/30/16 17:27 Dose: 40 mg Cholecalciferol (Vitamin D) 2,000 iu PO DAILY [facility] Last Admin: 10/31/16 10:47 Dose: 2,000 iu Clopidogrel Bisulfate (Plavix) 75 mg PO DAILY [facility] Last Admin: 10/31/16 10:46 Dose: 75 mg Docusate Sodium (Colace) 100 mg PO BID [facility] Last Admin: 10/31/16 10:47 Dose: 100 mg Doxycycline Hyclate (Doryx) 100 mg PO Q12 [facility] PRN Reason: Protocol Last Admin: 10/31/16 10:47 Dose: 100 mg Famotidine (Pepcid) 20 mg PO 1000,2200 [facility] Last Admin: 10/31/16 10:47 Dose: 20 mg Ferrous Sulfate (Feosol) 324 mg PO TID [facility] Last Admin: 10/31/16 10:46 Dose: 324 mg Gabapentin (Neurontin) 300 mg PO DAILY [facility] PRN Reason: Protocol Last Admin: 10/31/16 10:47 Dose: 300 mg Heparin Sodium (Porcine) (Heparin) 5,000 units SC Q8 [facility] PRN Reason: Protocol Last Admin: 10/31/16 13:26 Dose: 5,000 units Hydralazine HCl (Apresoline) 25 mg PO TID [facility] Last Admin: 10/31/16 13:25 Dose: 25 mg Milrinone Lactate/Dextrose (Primacor 20mg/100ml D5w) 100 mls @ 12.125 mls/hr IV .Q8H15M PRN; Protocol; 0.33 MCG/KG/MIN PRN Reason: TITRATE PER MD ORDER Last Admin: 10/31/16 15:31 Dose: 12.1 mls/hr Insulin Detemir (Levemir) 15 unit SC BID [facility] Insulin Human Lispro (Humalog Med) 0 units SC ACHS [facility] PRN Reason: Protocol Last Admin: 10/31/16 12:49 Dose: 8 units Metoprolol Tartrate (Lopressor) 25 mg PO BID [facility] Last Admin: 10/31/16 10:48 Dose: 25 mg Prednisone (Prednisone Tab) 30 mg PO DAILY [facility] Sevelamer HCl (Renagel) 1,600 mg PO WM [facility] Last Admin: 10/31/16 13:25 Dose: 1,600 mg Torsemide (Demadex) 10 mg PO BID [facility] Last Admin: 10/31/16 10:47 Dose: 10 mg - Labs Labs: 10/31/16 13:04 10/31/16 13:04 APTT 21.0 Seconds (23.7-30.8) L 10/31/16 13:04 Attending/Attestation - Attestation I have personally seen and examined this patient.: Yes I have fully participated in the care of the patient.: Yes I have reviewed all pertinent clinical information, including history, physical exam and plan: Yes Notes (Text): Patient seen and examined with resident. 46 year old female with obesity, IDDM, HTN, CAD s/p CABG, CKD secondary to nephrotic syndrome, cardiomyopathy who got admitted for evaluation of shortness of breath most likely due to copd exacerbation vs CHF exacerbation due to systolic dysfunction. She also had chest pain prior to coming to the hospital which has resolved now. 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 Still waiting for cpap to be delivered at home. SW consult pending. Stress test done on 10/22/2016 showed EF of 21% and fixed defect. EKG showed T wave abnormality, possible lateral ischemia in lateral leads, prolong QT interval. Also has elevated troponins. Dr Markham has rescheduled her for cardiac cath for . CXR showed minimal bibasilar infiltrates and small effusions. Patient is on primacor. Will continue duonebs, doxy and prednisone taper. Nephrology consult appreciated. She has anemia of chronic disease. Right breast ultrasound ordered for right breast pain and swelling. Dr Faith Leavitt
[2016-10-31] MEDS ORDERED: Insulin Detemir 100 units/ml Vial (Levemir) SC SCH (16:42)
[2016-11-01] MEDS: Albuterol-Ipratrop 3 mg / 0.5 (3 ml) UD IH SCH ×4 (02:22→20:35)
[2016-11-01] MEDS: Milrinone 20mg/100ml D5W 100 ML IV PRN ×3 (02:23→18:48)
[2016-11-01] MEDS: Insulin Lispro (humaLOG) MEDIUM Coverage SC SCH ×4 (08:16→22:56)
[2016-11-01] MEDS: Insulin Detemir 100 units/ml Vial (Levemir) SC SCH ×2 (10:06→22:57)
--- NOTE | 2016-11-01 11:47 | CP.PCM.PN ---
<Kishore Gamboakan - Last Filed: 11/01/16 11:49> Subjective - Date & Time of Evaluation Date of Evaluation: 11/01/16 Time of Evaluation: 07:53 - Subjective Subjective: Pt seen and examined. Pt reports that she has some pain in her right breast today. Pt also reports that she has been unable to have a bowel movement since she's been at the hospital. Pt denies fever, chills, chest pain, shortness of breath, nausea, and vomiting. Objective - Vital Signs/Intake and Output Vital Signs (last 24 hours): Temp Pulse Resp BP Pulse Ox 98 F 98 H 20 148/59 L 99 11/01/16 06:00 11/01/16 10:05 11/01/16 06:00 11/01/16 10:05 11/01/16 06:00 Intake and Output: 11/01/16 11/01/16 06:59 18:59 Intake Total 290 Balance 290 - Medications Medications: Current Medications Acetaminophen (Tylenol 325mg Tab) 650 mg PO Q6H PRN PRN Reason: Fever >100.4 F Last Admin: 10/30/16 09:50 Dose: 650 mg Albuterol/Ipratropium (Duoneb 3 Mg/0.5 Mg (3 Ml) Ud) 3 ml IH [id number] [facility] Last Admin: 11/01/16 07:29 Dose: 3 ml Aspirin (Ecotrin) 81 mg PO DAILY [facility] Last Admin: 11/01/16 10:05 Dose: 81 mg Atorvastatin Calcium (Lipitor) 40 mg PO DIN [facility] Last Admin: 10/31/16 18:31 Dose: 40 mg Cholecalciferol (Vitamin D) 2,000 iu PO DAILY [facility] Last Admin: 11/01/16 10:04 Dose: 2,000 iu Clopidogrel Bisulfate (Plavix) 75 mg PO DAILY [facility] Last Admin: 11/01/16 10:05 Dose: 75 mg Docusate Sodium (Colace) 100 mg PO BID [facility] Last Admin: 11/01/16 10:04 Dose: 100 mg Doxycycline Hyclate (Doryx) 100 mg PO Q12 [facility] PRN Reason: Protocol Last Admin: 11/01/16 10:04 Dose: 100 mg Famotidine (Pepcid) 20 mg PO 1000,2200 [facility] Last Admin: 11/01/16 10:04 Dose: 20 mg Ferrous Sulfate (Feosol) 324 mg PO TID [facility] Last Admin: 11/01/16 10:04 Dose: 324 mg Gabapentin (Neurontin) 300 mg PO DAILY [facility] PRN Reason: Protocol Last Admin: 11/01/16 10:05 Dose: 300 mg Heparin Sodium (Porcine) (Heparin) 5,000 units SC Q8 [facility] PRN Reason: Protocol Last Admin: 11/01/16 06:19 Dose: 5,000 units Hydralazine HCl (Apresoline) 25 mg PO TID [facility] Last Admin: 11/01/16 10:05 Dose: 25 mg Milrinone Lactate/Dextrose (Primacor 20mg/100ml D5w) 100 mls @ 12.125 mls/hr IV .Q8H15M PRN; Protocol; 0.33 MCG/KG/MIN PRN Reason: TITRATE PER MD ORDER Last Admin: 11/01/16 10:00 Dose: 12.1 mls/hr Insulin Detemir (Levemir) 17 unit SC Q12 [facility] Last Admin: 11/01/16 10:06 Dose: 17 unit Insulin Human Lispro (Humalog Med) 0 units SC ACHS [facility] PRN Reason: Protocol Last Admin: 11/01/16 08:16 Dose: 7 units Metoprolol Tartrate (Lopressor) 25 mg PO BID [facility] Last Admin: 11/01/16 10:04 Dose: 25 mg Prednisone (Prednisone Tab) 30 mg PO DAILY [facility] Last Admin: 11/01/16 10:04 Dose: 30 mg Sevelamer HCl (Renagel) 1,600 mg PO WM [facility] Last Admin: 11/01/16 08:16 Dose: 1,600 mg Torsemide (Demadex) 10 mg PO BID [facility] Last Admin: 11/01/16 10:05 Dose: 10 mg - Labs Labs: 10/31/16 13:04 10/31/16 13:04 APTT 21.0 Seconds (23.7-30.8) L 10/31/16 13:04 - Constitutional Appears: No Acute Distress - Head Exam Head Exam: ATRAUMATIC, NORMOCEPHALIC - Eye Exam Eye Exam: EOMI, PERRL - ENT Exam ENT Exam: Mucous Membranes Moist. absent: Mucous Membranes Dry - Respiratory Exam Respiratory Exam: Clear to Ausculation Bilateral. absent: Rales, Rhonchi, Wheezes - Cardiovascular Exam Cardiovascular Exam: +S1, +S2. absent: Gallop, Rubs - GI/Abdominal Exam GI & Abdominal Exam: Soft. absent: Distended, Guarding, Tenderness - Extremities Exam Extremities Exam: Pedal Edema - Neurological Exam Neurological Exam: Alert, Awake, Oriented x3 - Psychiatric Exam Psychiatric exam: Normal Affect, Normal Mood - Skin Skin Exam: Normal Color, Warm Additional comments: Nipple inversion Assessment and Plan - Assessment and Plan (Free Text) Assessment: Acute on Chronic CHF: Troponin x 1 - 0.05 Pro-BNP 24035 Initial CXR - minimal bibasilar infiltrates and small effusions, no changes from previous CXR on last admission (please see full report) Repeat CXR - no interval changes (please see full report) Lower Extemity venous ultrasound - negative for DVTs, limited study (please see full report) Cardiology, Dr. Cintron, consulted. Help appreciated. Cardiology recommends conservative approach for now, due to advanced renal insufficiency Milrinone drip Torsemide 10 mg po bid COPD Exacerbation: Afebrile, nontachycardic No leukocytosis Blood cultures negative after 3 days Acetylcysteine 6 ml po bid Duonebs q6h Doxycycline 100 mg po q12h Prednisone 40 mg po qd Right Breast Pain: Breast ultrasound End-Stage Renal Disease: Bun/Cr - 66/4.8 Nephrology, Dr. Flores, consulted. Help appreciated. As per museum preparator, pt will inevitably require dialysis; does not need it acutely now, since pt has now uremic symptomatoly nor any electrolyte abnormalities Hyperphosphatemia: Renagel 1600 mg po wm Coronary Artery Disease: Plavix 75 mg po qd Lipitor 40 mg po din Aspirin 81 mg po qd Lopressor 25 mg po bid HTN: Lopressor 25 mg po bid Hydralazine 25 mg po tid Hypercholesterolemia: Lipitor 40 mg po din Diabetes Mellitus: Glucose -385 Accuchecks Humalog sliding scale Levemir 14 units sc bid Peripheral neuropathy: Neurontin 300 mg po qd Anemia: H/H: 10.4/31.4 Feosol 324 mg po tid Prophylactic Measures: GI: Pepcid 20 mg po bid DVT: hperarin 5000 units sc q8h Vitamin D 2000 units iu po qd Tylenol 650 mg po q6h prn for fever > 100.4 <Faith Leavitt B - Last Filed: 11/01/16 14:17> Objective - Vital Signs/Intake and Output Vital Signs (last 24 hours): Temp Pulse Resp BP Pulse Ox 96.8 F L 88 20 135/61 99 11/01/16 13:09 11/01/16 13:09 11/01/16 13:09 11/01/16 13:09 11/01/16 06:00 Intake and Output: 11/01/16 11/01/16 06:59 18:59 Intake Total 290 Balance 290 - Medications Medications: Current Medications Acetaminophen (Tylenol 325mg Tab) 650 mg PO Q6H PRN PRN Reason: Fever >100.4 F Last Admin: 10/30/16 09:50 Dose: 650 mg Albuterol/Ipratropium (Duoneb 3 Mg/0.5 Mg (3 Ml) Ud) 3 ml IH [id number] [facility] Last Admin: 11/01/16 07:29 Dose: 3 ml Aspirin (Ecotrin) 81 mg PO DAILY [facility] Last Admin: 11/01/16 10:05 Dose: 81 mg Atorvastatin Calcium (Lipitor) 40 mg PO DIN [facility] Last Admin: 10/31/16 18:31 Dose: 40 mg Cholecalciferol (Vitamin D) 2,000 iu PO DAILY [facility] Last Admin: 11/01/16 10:04 Dose: 2,000 iu Clopidogrel Bisulfate (Plavix) 75 mg PO DAILY [facility] Last Admin: 11/01/16 10:05 Dose: 75 mg Docusate Sodium (Colace) 100 mg PO BID [facility] Last Admin: 11/01/16 10:04 Dose: 100 mg Doxycycline Hyclate (Doryx) 100 mg PO Q12 [facility] PRN Reason: Protocol Last Admin: 11/01/16 10:04 Dose: 100 mg Famotidine (Pepcid) 20 mg PO 1000,2200 [facility] Last Admin: 11/01/16 10:04 Dose: 20 mg Ferrous Sulfate (Feosol) 324 mg PO TID [facility] Last Admin: 11/01/16 10:04 Dose: 324 mg Gabapentin (Neurontin) 300 mg PO DAILY [facility] PRN Reason: Protocol Last Admin: 11/01/16 10:05 Dose: 300 mg Heparin Sodium (Porcine) (Heparin) 5,000 units SC Q8 [facility] PRN Reason: Protocol Last Admin: 11/01/16 06:19 Dose: 5,000 units Hydralazine HCl (Apresoline) 25 mg PO TID [facility] Last Admin: 11/01/16 10:05 Dose: 25 mg Milrinone Lactate/Dextrose (Primacor 20mg/100ml D5w) 100 mls @ 12.125 mls/hr IV .Q8H15M PRN; Protocol; 0.33 MCG/KG/MIN PRN Reason: TITRATE PER MD ORDER Last Admin: 11/01/16 10:00 Dose: 12.1 mls/hr Insulin Detemir (Levemir) 17 unit SC Q12 [facility] Last Admin: 11/01/16 10:06 Dose: 17 unit Insulin Human Lispro (Humalog Med) 0 units SC ACHS [facility] PRN Reason: Protocol Last Admin: 11/01/16 12:51 Dose: 7 units Metoprolol Tartrate (Lopressor) 25 mg PO BID [facility] Last Admin: 11/01/16 10:04 Dose: 25 mg Prednisone (Prednisone Tab) 30 mg PO DAILY [facility] Last Admin: 11/01/16 10:04 Dose: 30 mg Sevelamer HCl (Renagel) 1,600 mg PO WM [facility] Last Admin: 11/01/16 12:52 Dose: 1,600 mg Torsemide (Demadex) 10 mg PO BID [facility] Last Admin: 11/01/16 10:05 Dose: 10 mg - Labs Labs: 10/31/16 13:04 10/31/16 13:04 APTT 21.0 Seconds (23.7-30.8) L 10/31/16 13:04 Attending/Attestation - Attestation I have personally seen and examined this patient.: Yes I have fully participated in the care of the patient.: Yes I have reviewed all pertinent clinical information, including history, physical exam and plan: Yes Notes (Text): Patient seen and examined with resident. 46 year old female with obesity, IDDM, HTN, CAD s/p CABG, CKD secondary to nephrotic syndrome, cardiomyopathy who got admitted for evaluation of shortness of breath most likely due to copd exacerbation vs CHF exacerbation due to systolic dysfunction (ef21%). SOB has resolved now. She is able to talk in complete sentences. Continue to taper steroids. Continue doxy and duonebs. Patient remains on primacor. Will start mucomyst as there is a plan for possible cath next week. She also had chest pain prior to coming to the hospital which has been resolved. Patient complains of bilateral breast pain and swelling. There is no obvious lump or cellulitis however inverted nipples were noted. Patient was advised that she needs outpatient mammogram. As per patient, she had a normal mammogram couple of years ago. Breast ultrasound is ordered. She is not sure whether she had inverted nipples in the past. 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 Still waiting for cpap to be delivered at home. SW consult pending. She has anemia of chronic disease. Dr Faith Leavitt
[2016-11-01] MEDS ORDERED: POLYETHYLENE GLYCOL 3350 17 GM/Dose PACKET PO ONE (11:52)
--- NOTE | 2016-11-01 13:56 | PN ---
DATE: 11/01/2016 The patient denies chest pain. Shortness of breath has improved. Significant leg swelling remains. PHYSICAL EXAMINATION: VITAL SIGNS: Blood pressure 135/61, heart rate 88, temperature 96.8, respirations 20. HEENT: Pale conjunctivae. CHEST: Diminished breath sounds over the bases. HEART: S1, S2 regular. EXTREMITIES: 2-3+ pitting edema. LABORATORIES: Today's blood sugars are 336, 326 and 306. ASSESSMENT: 1. Ischemic cardiomyopathy. 2. Advanced renal insufficiency. 3. Uncontrolled diabetes mellitus. 4. Depression. RECOMMENDATIONS: Continue hydralazine at 25 mg t.i.d., Colace at 100 mg twice a day, aspirin 81 mg o nce a day, subcutaneous heparin 5000 units q. 8 hours, Lipitor at 40 mg once a day, Lopressor at 25 m g twice a day, Plavix 75 mg once a day. Consider initiating Mucomyst orally in anticipation of cardi ac catheterization next week. Gustavo Cintron MD cc: [id number] TT: 11/01/2016 13:55:33 Confirmation # [id number] Dictation # [id number]
[2016-11-01] MEDS ORDERED: Albuterol-Ipratrop 3 mg / 0.5 (3 ml) UD IH STA (16:17)
--- NOTE | 2016-11-01 16:50 | RAD ---
Indication: Rule out infiltrate Comparison: Chest x-ray performed 10/28/16 Findings: Examination limited by habitus and hypoinflation. Median sternotomy wires. Cardiomegaly. Right basilar opacity likely atelectasis. Pneumonia cannot be entirely excluded. Probable small bilateral pleural effusions. No definite pneumothorax. Please note that chest x-ray has limited sensitivity for the detection of pulmonary masses. No acute osseous abnormality is detected. Impression: Right basilar opacity likely atelectasis. Pneumonia cannot be entirely excluded. Correlate clinically. Probable small pleural effusions. Cardiomegaly.
[2016-11-01] MEDS: Acetylcysteine 20% Inhal Soln (4ml) PO SCH (17:33)
--- NOTE | 2016-11-01 18:14 | CP.PCM.PN ---
Subjective - Date & Time of Evaluation Date of Evaluation: 11/01/16 Time of Evaluation: 16:25 - Subjective Subjective: Patient seen stat at the request of her RN for her c/o chest pain. She describes her pain as a chest tightness,located in the middle of her chest.It goes up towards the neck,on a scale of 1 to 10 it is an 8. It is accompanied by SOB for which she is currently getting Duoneb Rx. VS: BP 110/55 RR 18 HR 93 T 97.8 O2 sat on R Air is 96% Accucheck 275 Meds reviewed includes Milrinone drip. Labs reviewed Bun 66 Cr 4.8 PMH: IDDM,HLD,HTN,CAD,S/P triple bypass,COPD,AKBAR,Depression,Chronic renal insufficiency,chronic foot ulcer. Objective - Vital Signs/Intake and Output Vital Signs (last 24 hours): Temp Pulse Resp BP Pulse Ox 96.8 F L 88 20 135/61 99 11/01/16 13:09 11/01/16 14:58 11/01/16 13:09 11/01/16 14:58 11/01/16 06:00 Intake and Output: 11/01/16 11/01/16 06:59 18:59 Intake Total 290 Balance 290 - Medications Medications: Current Medications Acetaminophen (Tylenol 325mg Tab) 650 mg PO Q6H PRN PRN Reason: Fever >100.4 F Last Admin: 10/30/16 09:50 Dose: 650 mg Acetylcysteine (Acetylcysteine 20%) 3 ml PO BID [facility] Albuterol/Ipratropium (Duoneb 3 Mg/0.5 Mg (3 Ml) Ud) 3 ml IH [id number] [facility] Last Admin: 11/01/16 13:37 Dose: Not Given Aspirin (Ecotrin) 81 mg PO DAILY [facility] Last Admin: 11/01/16 10:05 Dose: 81 mg Atorvastatin Calcium (Lipitor) 40 mg PO DIN [facility] Last Admin: 10/31/16 18:31 Dose: 40 mg Cholecalciferol (Vitamin D) 2,000 iu PO DAILY [facility] Last Admin: 11/01/16 10:04 Dose: 2,000 iu Clopidogrel Bisulfate (Plavix) 75 mg PO DAILY [facility] Last Admin: 11/01/16 10:05 Dose: 75 mg Docusate Sodium (Colace) 100 mg PO BID [facility] Last Admin: 03/19/17 10:04 Dose: 100 mg Doxycycline Hyclate (Doryx) 100 mg PO Q12 [facility] PRN Reason: Protocol Last Admin: 11/01/16 10:04 Dose: 100 mg Famotidine (Pepcid) 20 mg PO 1000,2200 [facility] Last Admin: 11/01/16 10:04 Dose: 20 mg Ferrous Sulfate (Feosol) 324 mg PO TID [facility] Last Admin: 11/01/16 14:58 Dose: 324 mg Gabapentin (Neurontin) 300 mg PO DAILY [facility] PRN Reason: Protocol Last Admin: 11/01/16 10:05 Dose: 300 mg Heparin Sodium (Porcine) (Heparin) 5,000 units SC Q8 [facility] PRN Reason: Protocol Last Admin: 11/01/16 14:58 Dose: 5,000 units Hydralazine HCl (Apresoline) 25 mg PO TID [facility] Last Admin: 11/01/16 14:58 Dose: 25 mg Milrinone Lactate/Dextrose (Primacor 20mg/100ml D5w) 100 mls @ 12.125 mls/hr IV .Q8H15M PRN; Protocol; 0.33 MCG/KG/MIN PRN Reason: TITRATE PER MD ORDER Last Admin: 11/01/16 10:00 Dose: 12.1 mls/hr Insulin Detemir (Levemir) 17 unit SC Q12 [facility] Last Admin: 11/01/16 10:06 Dose: 17 unit Insulin Human Lispro (Humalog Med) 0 units SC ACHS [facility] PRN Reason: Protocol Last Admin: 11/01/16 12:51 Dose: 7 units Metoprolol Tartrate (Lopressor) 25 mg PO BID [facility] Last Admin: 11/01/16 10:04 Dose: 25 mg Nitroglycerin (Nitrostat Sl Tab) 0.4 mg SL Q5M [facility] Stop: 11/01/16 16:56 Prednisone (Prednisone Tab) 20 mg PO DAILY [facility] Sevelamer HCl (Renagel) 1,600 mg PO WM [facility] Last Admin: 11/01/16 12:52 Dose: 1,600 mg Torsemide (Demadex) 10 mg PO BID [facility] Last Admin: 11/01/16 10:05 Dose: 10 mg - Labs Labs: 10/31/16 13:04 10/31/16 13:04 APTT 21.0 Seconds (23.7-30.8) L 10/31/16 13:04 - Constitutional Appears: No Acute Distress - Head Exam Head Exam: ATRAUMATIC, NORMAL INSPECTION, NORMOCEPHALIC - Eye Exam Eye Exam: Normal appearance, PERRL - ENT Exam ENT Exam: Mucous Membranes Moist - Neck Exam Neck Exam: Full ROM, Normal Inspection - Respiratory Exam Respiratory Exam: Decreased Breath Sounds (at the bases). absent: Accessory Muscle Use, Wheezes - Cardiovascular Exam Cardiovascular Exam: REGULAR RHYTHM Additional comments: Old midline surgical scar noted in sternal region. - GI/Abdominal Exam GI & Abdominal Exam: Soft, Normal Bowel Sounds - Extremities Exam Extremities Exam: Pedal Edema. absent: Calf Tenderness Additional comments: 4+ pitting edema of both lower extremities - Neurological Exam Neurological Exam: Alert, Awake, Oriented x3 Additional comments: moves all 4 extremities. - Psychiatric Exam Psychiatric exam: Anxious - Skin Skin Exam: Dry, Warm Assessment and Plan - Assessment and Plan (Free Text) Assessment: Chest pain Shortness of breath Plan: Ekg was done stat.It showed NSR with flipped T waves in leads I,AVL and V5 and V6.(findings in V5 and V6 are new) CXray done stat shows changes suggestive of small bilateral effusions.. Cardiac enzymes ordered. Patient already got duoneb Rx for her SOB with some symptomatic improvement. Pt is already on ASA and Metoprolol. Nitro SL ordered stat.After 2 pills SL, "most of the pain" was gone ,however pt refused the 3rd pill. Discussed with Dr Chace Leavitt,at her request with Dr Cintron. He stated he just gave orders to the resident on the case. Discussed with resident .
[2016-11-01 22:58] LABS: TROPONIN I 0.09 ng/mL
[2016-11-02] MEDS: Albuterol-Ipratrop 3 mg / 0.5 (3 ml) UD IH SCH ×4 (02:53→19:58)
[2016-11-02] MEDS: Milrinone 20mg/100ml D5W 100 ML IV PRN (03:49)
[2016-11-02 08:00] LABS: ADD MANUAL DIFF? NO
[2016-11-02 08:04] LABS: EOS % 0.5 % (1.5-5.0); GRAN # 6.36 (1.4-6.5); GRAN % 82.1 % (50.0-68.0); HEMATOCRIT 29.4 % (36.0-48.0); LYMPH # 0.8 (1.2-3.4); LYMPH % 9.7 % (22.0-35.0); MEAN CELL VOLUME 89.1 fL (80.0-105.0); MEAN CORPUSCULAR HEMOGLOBIN 29.4 pg (25.0-35.0); MEAN PLATELET VOLUME 9.1 fl (7.0-11.0); MONO # 0.6 (0.1-0.6); MONO % 7.7 % (1.0-6.0); PLATELET COUNT 317 10^3/uL (120.0-450.0); RED CELL DISTRIBUTION WIDTH 13.5 % (11.5-14.5); WHITE BLOOD COUNT 7.8 10^3/ul (4.5-11.0)
[2016-11-02 08:24] LABS: CALCIUM 8.5 mg/dL (8.4-10.5); MAGNESIUM 1.9 mg/dL (1.7-2.2); PHOSPHOROUS 5.7 mg/dL (2.5-4.5)
[2016-11-02] MEDS: Insulin Lispro (humaLOG) MEDIUM Coverage SC SCH ×4 (08:40→21:58)
[2016-11-02 09:08] LABS: POTASSIUM 4.3 mmol/L (3.6-5.0)
[2016-11-02 09:39] LABS: TROPONIN I 0.09 ng/mL
--- NOTE | 2016-11-02 09:50 | CP.PCM.PN ---
<Wade Alvarez - Last Filed: 11/02/16 23:10> Subjective - Date & Time of Evaluation Date of Evaluation: 11/02/16 Time of Evaluation: 07:50 - Subjective Subjective: 46 year old female with past medical history notable for DM, HLD, HTN, CAD s/p CABG, chronic renal insufficiency presenting to the ED for acute onset of shortness of breath, chest pain and difficulty breathing. Today, pt. complains of mild headache, fever, chills, mild chest pain, difficulty breathing, slight epistaxis, abdominal pain, and constipation. She denies dysuria, nausea, and vomiting. Objective - Vital Signs/Intake and Output Vital Signs (last 24 hours): Temp Pulse Resp BP Pulse Ox 97.6 F 87 20 159/81 H 98 11/02/16 05:47 11/02/16 05:47 11/02/16 05:47 11/02/16 05:47 11/02/16 05:47 Intake and Output: 11/02/16 11/02/16 06:59 18:59 Intake Total 290 Balance 290 - Medications Medications: Current Medications Acetaminophen (Tylenol 325mg Tab) 650 mg PO Q6H PRN PRN Reason: Fever >100.4 F Last Admin: 10/30/16 09:50 Dose: 650 mg Acetylcysteine (Acetylcysteine 20%) 3 ml PO BID [facility] Last Admin: 11/01/16 17:33 Dose: 3 ml Albuterol/Ipratropium (Duoneb 3 Mg/0.5 Mg (3 Ml) Ud) 3 ml IH [id number] [facility] Last Admin: 11/02/16 08:01 Dose: 3 ml Aspirin (Ecotrin) 81 mg PO DAILY [facility] Last Admin: 11/01/16 10:05 Dose: 81 mg Atorvastatin Calcium (Lipitor) 40 mg PO DIN [facility] Last Admin: 11/01/16 17:33 Dose: 40 mg Cholecalciferol (Vitamin D) 2,000 iu PO DAILY [facility] Last Admin: 11/01/16 10:04 Dose: 2,000 iu Clopidogrel Bisulfate (Plavix) 75 mg PO DAILY [facility] Last Admin: 11/01/16 10:05 Dose: 75 mg Docusate Sodium (Colace) 100 mg PO BID [facility] Last Admin: 11/01/16 17:33 Dose: 100 mg Doxycycline Hyclate (Doryx) 100 mg PO Q12 [facility] PRN Reason: Protocol Last Admin: 11/01/16 21:39 Dose: 100 mg Famotidine (Pepcid) 20 mg PO 1000,2200 [facility] Last Admin: 11/01/16 21:39 Dose: 20 mg Ferrous Sulfate (Feosol) 324 mg PO TID [facility] Last Admin: 11/01/16 18:49 Dose: 324 mg Gabapentin (Neurontin) 300 mg PO DAILY [facility] PRN Reason: Protocol Last Admin: 11/01/16 10:05 Dose: 300 mg Heparin Sodium (Porcine) (Heparin) 5,000 units SC Q8 [facility] PRN Reason: Protocol Last Admin: 11/02/16 05:38 Dose: 5,000 units Hydralazine HCl (Apresoline) 25 mg PO TID [facility] Last Admin: 11/01/16 18:50 Dose: 25 mg Insulin Detemir (Levemir) 17 unit SC Q12 [facility] Last Admin: 11/01/16 22:57 Dose: 17 unit Insulin Human Lispro (Humalog Med) 0 units SC ACHS [facility] PRN Reason: Protocol Last Admin: 11/02/16 08:40 Dose: 5 units Metoprolol Tartrate (Lopressor) 25 mg PO BID [facility] Last Admin: 11/01/16 17:33 Dose: 25 mg Prednisone (Prednisone Tab) 20 mg PO DAILY [facility] Sevelamer HCl (Renagel) 1,600 mg PO WM [facility] Last Admin: 11/01/16 17:39 Dose: 1,600 mg Torsemide (Demadex) 10 mg PO BID [facility] Last Admin: 11/01/16 17:39 Dose: 10 mg - Labs Labs: 11/02/16 07:40 11/02/16 07:40 APTT 22.4 Seconds (23.7-30.8) L 11/02/16 07:40 - Constitutional Appears: No Acute Distress - Head Exam Head Exam: ATRAUMATIC - Eye Exam Eye Exam: EOMI - ENT Exam ENT Exam: Mucous Membranes Moist - Respiratory Exam Respiratory Exam: NORMAL BREATHING PATTERN - Cardiovascular Exam Cardiovascular Exam: REGULAR RHYTHM, RRR, +S1, +S2 - GI/Abdominal Exam GI & Abdominal Exam: Soft, Normal Bowel Sounds. absent: Tenderness - Extremities Exam Extremities Exam: Calf Tenderness, Joint Swelling, Pedal Edema - Neurological Exam Neurological Exam: Alert, Awake - Psychiatric Exam Psychiatric exam: Normal Affect, Normal Mood - Skin Skin Exam: Dry, Intact, Pallor Assessment and Plan - Assessment and Plan (Free Text) Assessment: 46 year old female with past medical history of DM, HLD, HTN, CAD s/p CABG, depression, and chronic renal insufficiency presented to the ED for acute onset of shortness of breath and chest pain likely secondary to COPD exacerbation vs CHF exacerbation vs systolic dysfunction. Plan: Acute on Chronic CHF: Troponin x 1 - 0.05 Pro-BNP 23564 Initial CXR - minimal bibasilar infiltrates and small effusions, no changes from previous CXR on last admission (please see full report) Repeat CXR - no interval changes (please see full report) Lower Extemity venous ultrasound - negative for DVTs, limited study (please see full report) Cardiology, Dr. Cintron, consulted. Help appreciated. Cardiology recommends conservative approach for now, due to advanced renal insufficiency Milrinone drip Torsemide 10 mg po bid COPD Exacerbation: Afebrile, nontachycardic No leukocytosis Blood cultures negative after 3 days Acetylcysteine 6 ml po bid Duonebs q6h Doxycycline 100 mg po q12h Prednisone 40 mg po qd Right Breast Pain: Breast ultrasound End-Stage Renal Disease: Bun/Cr - 66/4.8 Nephrology, Dr. Flores, consulted. Help appreciated. As per tree feller, pt will inevitably require dialysis; does not need it acutely now, since pt has now uremic symptoms nor any electrolyte abnormalities Hyperphosphatemia: Renagel 1600 mg po wm Coronary Artery Disease: Plavix 75 mg po qd Lipitor 40 mg po din Aspirin 81 mg po qd Lopressor 25 mg po bid HTN: Lopressor 25 mg po bid Hydralazine 25 mg po tid Hypercholesterolemia: Lipitor 40 mg po din Diabetes Mellitus: Glucose -385 Accuchecks Humalog sliding scale Levemir 14 units sc bid Peripheral neuropathy: Neurontin 300 mg po qd Anemia: H/H: 10.4/31.4 Feosol 324 mg po tid Prophylactic Measures: GI: Pepcid 20 mg po bid DVT: hperarin 5000 units sc q8h Vitamin D 2000 units iu po qd Tylenol 650 mg po q6h prn for fever > 100.4 <Faith Leavitt - Last Filed: 11/10/16 17:16> Objective - Vital Signs/Intake and Output Vital Signs (last 24 hours): Temp Pulse Resp BP Pulse Ox 97.8 F 76 20 129/67 99 11/09/16 11:58 11/09/16 15:00 11/09/16 11:58 11/09/16 15:00 11/09/16 05:42 - Labs Labs: 11/09/16 06:45 11/09/16 06:45 APTT 23.7 Seconds (23.7-30.8) 11/04/16 06:35 Attending/Attestation - Attestation I have personally seen and examined this patient.: Yes I have fully participated in the care of the patient.: Yes I have reviewed all pertinent clinical information, including history, physical exam and plan: Yes Notes (Text): Patient seen and examined with resident. This is 46 year old female with obesity , IDDM, HTN, CAD s/p CABG, CKD secondary to nephrotic syndrome, cardiomyopathy who got admitted for evaluation of shortness of breath most likely due to copd exacerbation vs CHF exacerbation due to systolic dysfunction (ef21%). Initially treated with IV primacor currently on IV Lasix dripfor diuresis. Will start mucomyst. Plan for possible cath this week. Dr Faith Leavitt
--- NOTE | 2016-11-02 09:55 | CARD ---
APPROVED REPORT EKG Measurement Heart [id number] MI [id number] <Conclusion> Normal sinus rhythm T wave abnormality, consider lateral ischemia, new Prolonged QT
--- NOTE | 2016-11-02 10:01 | PN ---
DATE: 11/02/2016 SUBJECTIVE: The patient has been on IV milrinone for the past 48 hours and has had no effect, both i n terms of her dyspnea nor her renal function. PHYSICAL EXAMINATION: VITAL SIGNS: Blood pressure is 159/81, the heart rate is in the 80s. NECK: Negative JVD. LUNGS: Decreased breath sounds without rales. HEART: Reveals S1, S2. EXTREMITIES: Without edema. LABORATORIES: The creatinine is up to 5.1, hemoglobin is 9.7. IMPRESSION: 1. Ischemic dilated cardiomyopathy. 2. Congestive heart failure, which is stable. 3. History of coronary artery bypass surgery. 4. Coronary artery disease. 5. Progressive renal insufficiency with a creatinine of 5.1 today. 6. Diabetes mellitus. 7. Obesity. Given these findings, given the lack of hemodynamic benefit of the milrinone, will stop it today. As long as her kidney function is deteriorating, there are no plans for cardiac catheterization unles s the patient goes on dialysis which appears to be soon. Will defer the decision to renal. Will con tinue medical therapy. Austin Markham MD cc: [id number] TT: 11/02/2016 10:00:30 Confirmation # [id number] Dictation # [id number] ney
[2016-11-02] MEDS: Acetylcysteine 20% Inhal Soln (4ml) PO SCH ×2 (10:36→17:49)
[2016-11-02] MEDS: Insulin Detemir 100 units/ml Vial (Levemir) SC SCH ×2 (10:43→21:57)
--- NOTE | 2016-11-02 13:17 | MAM ---
PROCEDURE: Bilateral diagnostic mammography an unilateral right breast ultrasound examination The most recent clinical breast examination was performed in/on 10/20/2016. HISTORY: Family history significant for breast malignancy in a paternal aunt. The patient has no personal history of breast malignancy. There is no history of prior breast surgery. TECHNIQUE: Views of the right and left breast were obtained in the craniocaudal and mediolateral oblique projections, utilizing full field digital technique, supplemented by CAD. COMPARISON: The patient has undergone prior outside mammographic examination but these films have not been submitted for comparison. FINDINGS: Scattered fibroglandular densities are seen throughout both breasts. There is some coarsening of the trabecular pattern bilaterally. There is diffuse cutaneous edema bilaterally. The findings are consistent with the patient's known congestive heart failure and nephrotic syndrome. There are no masses or suspicious clustered microcalcifications identified. No areas of focal architectural distortion or significant asymmetric soft tissue density are appreciated. There is no skin thickening or nipple retraction. Ultrasound examination was performed throughout the right breast. No solid or cystic mass is identified. Edema of the breast parenchyma is noted. Examination of the right axilla demonstrates several small lymph nodes. There is mild cortical thickening in a portion of 1 lymph node, of no probable clinical significance. IMPRESSION: No mammographic or sonographic evidence of malignancy. Bilateral trabecular coarsening and diffuse cutaneous edema consistent with known congestive heart failure and nephrotic syndrome. BIRADS 2 Benign finding Recommendation: Continue annual screening mammography, as per ACR guidelines. JOSE YEE I's mammogram showed that she does not have dense breasts. The [facility] has passed a law, effective December 14, 2013. Please be advised that we are required by this law to put this notification in all mammography result reports. This [place] Breast Density Law requires all patients and healthcare providers, regardless of breast density, to receive the information typed below: Your mammogram may show dense breast tissue as determined by the Breast Imaging Reporting and Data System established by the [employer]. Dense breast tissue is very common and is not abnormal. However, in some cases, dense breast tissue can make it harder to find cancer on a mammogram and may also be associated with a risk factor for breast cancer. Discuss this and other risks for breast cancer that pertain to your personal medical history. A report of your results was sent to your health care provider. You may also find more information about breast density at the website of the [employer], www.acr.org.
[2016-11-02] MEDS: WATER IV SCH (14:57)
[2016-11-02] MEDS: DEXTROSE 5% IV SCH (14:57)
[2016-11-02] MEDS: FUROSEMIDE IV SCH (14:57)
[2016-11-02] MEDS: POLYETHYLENE GLYCOL 3350 17 GM/Dose PACKET PO SCH (17:45)
--- NOTE | 2016-11-02 22:25 | PN ---
DATE: 11/02/2016 SUBJECTIVE: The patient was seen on telemetry. Milrinone is now off. She was complaining of lower extremity edema, as well as some occasional chest pain and shortness of breath. She denied any palpi tation. She reported that her edema was preventing her from ambulating as well as she would like to. OBJECTIVE: VITAL SIGNS: Blood pressure is 157/83, heart rate 92, oral temperature 98.9, respiratory rate is 18. I's and O's are not strictly documented. The remainder of the exam was as follows: HEENT: The patient was normocephalic and atraumatic. There was no sinus tenderness. There was no j ugular venous distention. She appeared to be pale. CHEST: Lungs on my exam were grossly clear to auscultation, but breath sounds were distant. CARDIAC: Had a regular rate and rhythm without any rubs. ABDOMEN: Soft, nontender, obese without any rebound, guarding, or rigidity. EXTREMITIES: Notable for anasarca. NEUROLOGIC: She was nonfocal without any clonus nor any asterixis. VASCULAR: No bruits. LABORATORY STUDIES: As follows: White count is 7.8, H and H was 9.7 and 29.4 with a platelet count of 317,000. There were 82% neutrophils, 10% lymphocytes, 8% monocytes. Sodium is 134, potassium 4.3 , chloride is 104, bicarbonate 19, BUN and creatinine 74 and 5.1, with a glucose of 263. Phosphorus is 5.7. There is no new microbiology data to report. Chest x-ray from yesterday revealed right basi lar opacity, thought to be atelectasis: IMPRESSION AND PLAN: The patient is a 46-year-old obese female (BMI 50 kg/m2) with type 2 diabetes m ellitus that is insulin-dependent and uncontrolled, hypertension, dyslipidemia, late stage IV chronic kidney disease with a baseline creatinine approximately 3, nephrotic syndrome, presumed secondary to diabetic nephropathy, coronary artery disease with history of 3-vessel coronary artery bypass graft in 2013, and recently with abnormal stress test, obstructive sleep apnea for which she is on BiPAP as an outpatient, chronic obstructive pulmonary disease, chronic ulceration of her left foot; admitted with sudden onset of shortness of breath at home, secondary to chronic obstructive pulmonary disease exacerbation as well as heart failure with reduced ejection fraction. 1. I had a lengthy discussion with the patient, as well as her mother, present at bedside, and I roger ed with patient my opinion that given the abnormal stress test, she requires a cardiac catheterizatio n. If she were to consent to the cardiac catheterization, I explained to her that this would entail a large risk of the patient's renal function worsening and ultimately requiring hemodialysis. I was deidre sanders clear about explaining this risk to the patient and her mother, present at bedside. 2. The patient explained to me that, under no circumstances would she consider starting hemodialysis now "because I have a lot on my plate." 3. I went on to further explain to the patient that renal function could always be replaced with dial ysis, whereas cardiac event could be lethal, but she still insists on refusing even consideration of anything that would lead her to require hemodialysis. 4. For symptomatic relief of her edema, I will start the patient on furosemide infusion at 10 mg per hour. We will see how she does on this. It is noted that she is now off milrinone. If she is not i nsufficiency negative fluid balance then we will need to increase this dose; however, right now, we a re in a catch 22 situation, in order to address the patient's chief complaint, which is an inability to ambulate, because of lower extremity edema. She requires diuresis, but diuresis, thus far, has on ly worsen her renal function. 5. Given the patient's refusal to consider dialysis, and the fact that cardiac catheterization is not under consideration at present; hospice evaluation may be reasonable for this patient. 6. Most recent echocardiogram revealed severely decreased left ventricular systolic function with mil d to moderate pulmonary hypertension, but normal right ventricular function. Her ejection fraction w as estimated at 35%. Given the fact that she is hypertensive, she remains on hydralazine for afterlo ad reduction, which we can increase. She is also on beta cristhian therapy. We can consider adding a nitrate as well, for preload reduction. 7. For her known history of vascular disease, continue aspirin, clopidogrel, and atorvastatin, along with the beta cristhian she is already receiving. 8. The patient is at risk of deep vein thromboses by virtue of her obesity and nephrotic syndrome. S he is on heparin 5000 units subcutaneously every 8 hours. Patients with nephrotic syndrome are hyper coagulable and therefore renal vein thrombosis would be a possibility, as well, for the etiology of h er acute kidney injury. We will order renal vein Doppler in this patient. The above was discussed w ith the patient, as well as her mother present at bedside. Review of systems, past medical history, social history, and family history were all reviewed and the re are no new changes. Gary Flores MD cc: [phone] TT: 11/02/2016 22:23:58 Confirmation # [id number] Dictation # [id number]
[2016-11-03] MEDS: DEXTROSE 5% IV SCH ×2 (00:46→03:18)
[2016-11-03] MEDS: FUROSEMIDE IV SCH ×2 (00:46→03:18)
[2016-11-03] MEDS: WATER IV SCH ×2 (00:46→03:18)
[2016-11-03] MEDS: Albuterol-Ipratrop 3 mg / 0.5 (3 ml) UD IH SCH ×4 (01:31→19:40)
[2016-11-03 07:48] LABS: ADD MANUAL DIFF? NO; EOS # 0.1 (0.0-0.7); EOS % 1.7 % (1.5-5.0); GRAN # 4.59 (1.4-6.5); GRAN % 77.1 % (50.0-68.0); HEMATOCRIT 29.1 % (36.0-48.0); LYMPH # 0.7 (1.2-3.4); LYMPH % 12.3 % (22.0-35.0); MEAN CELL VOLUME 88.4 fL (80.0-105.0); MEAN CORPUSCULAR HEMOGLOBIN 29.2 pg (25.0-35.0); MEAN PLATELET VOLUME 9.3 fl (7.0-11.0); MONO # 0.5 (0.1-0.6); MONO % 8.9 % (1.0-6.0); PLATELET COUNT 244 10^3/uL (120.0-450.0); RED CELL DISTRIBUTION WIDTH 13.5 % (11.5-14.5)
[2016-11-03] MEDS: Insulin Lispro (humaLOG) MEDIUM Coverage SC SCH ×4 (08:18→22:50)
[2016-11-03 09:03] LABS: MAGNESIUM 1.9 mg/dL (1.7-2.2); PHOSPHOROUS 5.9 mg/dL (2.5-4.5)
[2016-11-03] MEDS: POLYETHYLENE GLYCOL 3350 17 GM/Dose PACKET PO SCH ×2 (10:51→17:43)
[2016-11-03] MEDS: Insulin Detemir 100 units/ml Vial (Levemir) SC SCH ×2 (10:51→22:44)
[2016-11-03] MEDS: Acetylcysteine 20% Inhal Soln (4ml) PO SCH ×2 (10:52→17:40)
--- NOTE | 2016-11-03 13:09 | IP.NPCORE ---
Heart Failure Core Measure - Heart Failure Left Ventricular Function to be assessed after discharge: Yes LESTER Inhibitor Prescribed: No Contraindication/Reason for not providing: renal failure Beta-Tenzin Prescribed: Metoprolol Succinate Angiotensin II Receptor Tenzin Prescribed: No Contraindication/Reason for not providing: arf AnticoagulationTherapy for Atrial Fibrillation/Atrialflutter: No Contraindication/Reason for not providing: n/a Aldosterone Antagonist Prescribed: Yes Hydralazine Nitrate Prescribed: Yes Implantable Cardioverter Defibrillator Therapy: No Contraindication/Reason for not providing: n/a Cardiac Resynchronization Therapy Prescribed: No Contraindication/Reason for not providing: n/a - Follow up Will be discharged to: Home Follow Up Date (must be within 7 days from discharge): 11/10/16 Follow Up Time: 09:00
--- NOTE | 2016-11-03 13:50 | PN ---
DATE: 11/03/2016 The patient is in bed without shortness of breath, without chest pain. PHYSICAL EXAMINATION: VITAL SIGNS: Blood pressure is 149/88, the heart rate is in the 70s. NECK: Negative JVD. LUNGS: Decreased breath sounds without rales. HEART: Reveals S1, S2. EXTREMITIES: Without change. LABORATORIES: Hemoglobin is 9.6. The creatinine is up to 5.1. Glucose is 294. IMPRESSION: 1. Ischemic dilated cardiomyopathy. 2. History of heart surgery. 3. Progressive renal insufficiency. 4. Diabetes mellitus. 5. Marked obesity. 6. History of coronary artery bypass surgery. PLAN: Given these findings, I have discussed with the patient and with her mother present about the risks, benefits of cardiac catheterization including the high probability for needing dialysis and ne eding dialysis for the rest of her life if the contrast affects her kidneys. I have discussed with them the risk of not doing the procedure given that she has a compromised left ventricle and has a positive stress test. The patient yesterday had declined cardiac catheterization because of the risks, this morning had agr eed to it despite the risks. This afternoon, is again unsure whether she is willing to have the proc edure done. Given these findings, I will cancel her procedure tomorrow. I have discussed with the patient that I want her to be absolutely clear and sure for decision before making this decision for cardiac cathet erization which may affect her kidneys and her life for the rest of her life. The risks, benefits we re outlined both to the mother and to the patient in detail. Austin Markham MD cc: [id number] TT: 11/03/2016 13:50:17 Confirmation # [id number] Dictation # [id number] tn
--- NOTE | 2016-11-03 15:38 | PN ---
DATE: 11/03/2016 SUBJECTIVE: The patient was seen on telemetry. She states that since being started on the furosemid e infusion yesterday subjectively she feels as if she is urinating more and, in fact, she is in negat benitez fluid balance now. She denies any chest pain, shortness of breath, but states that her edema con tinues to limit her ability to ambulate. PHYSICAL EXAMINATION: VITAL SIGNS: Blood pressure is 149/88, heart rate 78, oral temperature is 98.2, respiratory rate is 18. I's and O's in the last 24-hour period are 1080/2500. HEENT: The patient was normocephalic and atraumatic without any sinus tenderness. The patient's con junctivae were pale, but they were anicteric. NECK: I was unable to appreciate any jugular venous distension on account of her body habitus. Trac hea was midline and freely movable. Thyroid was nontender nor was it enlarged. CHEST: Lung ryan were grossly clear to auscultation without any rales, rhonchi or wheezing. Diaph ragmatic excursion as well as airflow into both lung ryan was bilaterally symmetrical. There were no rales, rhonchi or wheezing. CARDIAC: Had a regular rate and rhythm without any rubs or gallops. There were no heaves and the PM I was not displaced. ABDOMEN: Soft, centrally obese, but nontender, without any rebounding, guarding or rigidity. There was no hepatosplenomegaly that I could appreciate. EXTREMITIES: Notable for anasarca. NEUROLOGIC: The patient was nonfocal without any clonus nor any asterixis. VASCULAR: Had no bruits. SKIN: Intact. GENITOURINARY: Had no CVA tenderness and there was no suprapubic tenderness either. LABORATORY STUDIES: White count is 6.0, H and H is 9.6/29.1 with a platelet count of 244,000. MCV i s 88. There are 77% neutrophils, 12% lymphocytes, 9% monocytes, and 2% eosinophils. Chemistry panel from this morning is still pending, but yesterday creatinine was noted to be 5.1. IMPRESSION AND PLAN: The patient is a 46-year-old obese female (BMI 48.3 kg/m2) with type 2 diabetes mellitus that is insulin-dependent and uncontrolled with nephrotic syndrome, presumably secondary to diabetic nephropathy in stage IV chronic kidney disease with a baseline creatinine of approximately 3, but with a progressive deterioration in her renal function; hypertension, dyslipidemia, coronary a rtery disease with history of 3-vessel coronary artery bypass graft in 2013 and recent abnormal stres s test, obstructive sleep apnea for which she is on BiPAP as an outpatient, also chronic obstructive pulmonary disease, chronic left foot ulceration, admitted with sudden onset of shortness of breath se condary to chronic obstructive pulmonary disease exacerbation, as well as heart failure with reduced ejection fraction. 1. The patient's stress test on 10/22/2016 was abnormal demonstrating severe LV dysfunction with dif fuse hypokinesis, which was segmental and worse in the inferolateral wall and cardiac catheterization has been recommended. The patient's ejection fraction is 25%. 2. Given the patient's acute kidney injury as well as baseline stage IV chronic kidney disease, she is at risk of further renal deterioration with IV contrast and at the risk of requiring dialysis foll owing the cardiac catheterization. I had a lengthy discussion with the patient as well as her mother both yesterday and today and explained to them both, that there is a likelihood that she will requir e hemodialysis following the cardiac catheterization and, they both understand this risk and are agre eable to proceeding with the cardiac catheterization, given the patient's abnormal stress test and th e fact that she has been having increasing chest pain and increasing shortness of breath. At present , the patient does not have any uremic symptoms that require initiation of hemodialysis prior to the cardiac catheterization and her hypervolemia and congestive heart failure are improving with furosemi de infusion and, therefore, she does not require hemodialysis to be initiated at present. However, i t is inevitable that this patient will require initiation of dialysis within the next several months or so. I explained to the patient that since she is inevitably headed towards requiring hemodialysis anyways, given the abnormal stress test and the fact that she is getting chest pain at rest with wor sening shortness of breath, it would behoove her to have the cardiac catheterization anyways as there is no benefit to delaying it. Even though this would entail a high risk that the patient would requ sabino hemodialysis immediately following the cardiac catheterization, the patient as well as her mother were both able to articulate this risk and they both understand the risk and they are agreeable to p roceeding with cardiac catheterization. 3. I will start the patient on Mucomyst 1200 mg orally twice daily for now. I would not start the p atient on any intravenous fluids, but rather I would continue her furosemide infusion at 10 mg per ho ur to achieve negative fluid balance. Hopefully, as we diurese this patient it may improve her cardi ac output. 4. Given the patient's known history of coronary artery disease she remains on aspirin, clopidogrel, high intensity statin therapy with atorvastatin and metoprolol tartrate as well. 5. Given her decreased LV systolic function with an ejection fraction of 27% on the stress test, she remains on hydralazine for afterload reduction and also remains on a beta cristhian. 6. The patient's iron studies this hospitalization have revealed a ferritin of 361 and a transferrin saturation of 50%. She did receive intravenous iron and with her next set of labs we will recheck h er iron studies to see if she requires another load of intravenous iron. 7. Pulmonary followup is appreciated and the patient continues to be treated for COPD exacerbation a s well and is now on oral prednisone which is contributing to hyperglycemia. Given the fact that she has known microvascular disease from her diabetes, ultimate hemoglobin A1c should be approximately 6 .5% as a goal. 8. Unfortunately, the patient is currently not a kidney transplant candidate because of her obesity. Most centers require BMI of less than 35 kg/m2, and she is 48.3 kg/m2. 9. Ultimately, the patient is not a candidate for peritoneal dialysis either given the fact that her cat has free access to her home. 10. After the patient's cardiac catheterization, she should proceed with AV fistula creation, but th is does not need to occur during this hospitalization. 11. For hyperphosphatemia, the patient is on Renvela 800 mg 2 tablets orally with each meal, but her phosphorus continues to remain elevated and we will increase it to 3 tablets orally with each meal. Given the fact that she is diabetic and has known vascular disease, I would avoid calcium acetate or any calcium binder in this patient. 12. For DVT prophylaxis in this patient at increased risk because of her obesity and the fact that s he is quite sedentary, continue heparin 5000 units subcutaneously every 8 hours. 13. For GI prophylaxis, we will renally adjust the dosing of famotidine from 20 mg twice daily to 20 mg daily. 14. If needed for blood pressure control, we can either increase her hydralazine further or her beta cristhian. The above was discussed at length with the patient as well as her mother present at bedside. Review of systems, past medical history, social history and family history were all reviewed and ther e were no new changes. Gary Flores MD cc: [id number] TT: 11/03/2016 14:32:55 Confirmation # [id number] Dictation # [id number] mn
--- NOTE | 2016-11-03 17:08 | CP.PCM.PN ---
<Wade Alvarez - Last Filed: 11/03/16 18:58> Subjective - Date & Time of Evaluation Date of Evaluation: 11/03/16 Time of Evaluation: 07:10 - Subjective Subjective: 46 year old female with past medical history notable for DM, HLD, HTN, CAD s/p CABG, chronic renal insufficiency presenting to the ED for acute onset of shortness of breath, chest pain and difficulty breathing. Today, pt. complains of mild headache, fever, chills, mild chest pain, difficulty breathing, slight epistaxis, abdominal pain, and constipation. She denies dysuria, nausea, and vomiting. She also was agreeable to doing both a cardiac cath and if necessary dialysis. Objective - Vital Signs/Intake and Output Vital Signs (last 24 hours): Temp Pulse Resp BP Pulse Ox 98.2 F 86 20 134/72 99 11/03/16 12:00 11/03/16 14:07 11/03/16 12:00 11/03/16 14:07 11/03/16 05:21 Intake and Output: 11/03/16 11/03/16 06:59 18:59 Intake Total 1080 Output Total 2500 Balance -1420 - Medications Medications: Current Medications Acetaminophen (Tylenol 325mg Tab) 650 mg PO Q6H PRN PRN Reason: Fever >100.4 F Last Admin: 10/30/16 09:50 Dose: 650 mg Acetylcysteine (Acetylcysteine 20%) 6 ml PO BID [facility] Albuterol/Ipratropium (Duoneb 3 Mg/0.5 Mg (3 Ml) Ud) 3 ml IH [id number] [facility] Last Admin: 11/03/16 13:26 Dose: 3 ml Aspirin (Ecotrin) 81 mg PO DAILY [facility] Last Admin: 11/03/16 10:53 Dose: 81 mg Atorvastatin Calcium (Lipitor) 40 mg PO DIN [facility] Last Admin: 11/02/16 17:52 Dose: 40 mg Cholecalciferol (Vitamin D) 2,000 iu PO DAILY [facility] Last Admin: 11/03/16 10:51 Dose: 2,000 iu Clopidogrel Bisulfate (Plavix) 75 mg PO DAILY [facility] Last Admin: 11/03/16 10:49 Dose: 75 mg Docusate Sodium (Colace) 100 mg PO BID [facility] Last Admin: 11/03/16 10:51 Dose: 100 mg Doxycycline Hyclate (Doryx) 100 mg PO Q12 [facility] PRN Reason: Protocol Last Admin: 11/03/16 10:50 Dose: 100 mg Famotidine (Pepcid) 20 mg PO DAILY [facility] Ferrous Sulfate (Feosol) 324 mg PO TID [facility] Last Admin: 11/03/16 14:07 Dose: 324 mg Gabapentin (Neurontin) 300 mg PO DAILY [facility] PRN Reason: Protocol Last Admin: 11/03/16 10:50 Dose: 300 mg Heparin Sodium (Porcine) (Heparin) 5,000 units SC Q8 [facility] PRN Reason: Protocol Last Admin: 11/03/16 14:08 Dose: 5,000 units Hydralazine HCl (Apresoline) 25 mg PO TID [facility] Last Admin: 11/03/16 14:07 Dose: 25 mg Furosemide 240 mg/ Dextrose 250 mls @ 10.41 mls/hr IV .Q24H [facility]; 10 MG/HR PRN Reason: Protocol Last Admin: 11/03/16 03:18 Dose: 10.41 mls/hr Insulin Detemir (Levemir) 20 unit SC Q12 [facility] Insulin Human Lispro (Humalog Med) 0 units SC ACHS [facility] PRN Reason: Protocol Last Admin: 11/03/16 12:27 Dose: 7 units Metoprolol Tartrate (Lopressor) 25 mg PO BID [facility] Last Admin: 11/03/16 10:50 Dose: 25 mg Polyethylene Glycol (Miralax) 17 gm PO BID [facility] Last Admin: 11/03/16 10:51 Dose: 17 gm Prednisone (Prednisone Tab) 10 mg PO DAILY [facility] Last Admin: 11/03/16 10:51 Dose: 10 mg Sevelamer HCl (Renagel) 2,400 mg PO [facility] Sodium Chloride (Harney Nasal [place]) 0 ml NS Q6H PRN PRN Reason: Nasal congestion Last Admin: 11/03/16 14:08 Dose: 2 sprays - Labs Labs: 11/03/16 07:40 11/02/16 07:40 APTT 23.3 Seconds (23.7-30.8) L 11/03/16 07:40 - Constitutional Appears: No Acute Distress - Head Exam Head Exam: ATRAUMATIC - Eye Exam Eye Exam: EOMI - ENT Exam ENT Exam: Mucous Membranes Moist - Neck Exam Neck Exam: Full ROM - Respiratory Exam Respiratory Exam: Clear to Ausculation Bilateral, NORMAL BREATHING PATTERN - Cardiovascular Exam Cardiovascular Exam: REGULAR RHYTHM, RRR. absent: JVD - GI/Abdominal Exam GI & Abdominal Exam: Soft, Normal Bowel Sounds. absent: Tenderness - Extremities Exam Extremities Exam: Calf Tenderness, Full ROM, Joint Swelling, Pedal Edema - Back Exam Back Exam: NORMAL INSPECTION. absent: CVA tenderness (L), CVA tenderness (R), paraspinal tenderness - Neurological Exam Neurological Exam: Alert, Awake, Oriented x3 - Psychiatric Exam Psychiatric exam: Normal Affect, Normal Mood - Skin Skin Exam: Dry, Intact, Pallor, Warm Assessment and Plan - Assessment and Plan (Free Text) Assessment: 46 year old female with past medical history of DM, HLD, HTN, CAD s/p CABG, depression, and chronic renal insufficiency presented to the ED for acute onset of shortness of breath and chest pain likely secondary to COPD exacerbation vs CHF exacerbation vs systolic dysfunction. Currently waiting for cath procedure. Plan: Acute on Chronic CHF: Troponin x 1 - 0.05 Pro-BNP 66785 Initial CXR - minimal bibasilar infiltrates and small effusions, no changes from previous CXR on last admission (please see full report) Repeat CXR - no interval changes (please see full report) Lower Extemity venous ultrasound - negative for DVTs, limited study (please see full report) Cardiology, Dr. Cintron, consulted. Help appreciated. Cardiology recommends conservative approach for now, due to advanced renal insufficiency Milrinone drip Torsemide 10 mg po bid COPD Exacerbation: Afebrile, nontachycardic No leukocytosis Blood cultures negative after 3 days Acetylcysteine 6 ml po bid Duonebs q6h Doxycycline 100 mg po q12h Prednisone 40 mg po qd Right Breast Pain: Breast ultrasound End-Stage Renal Disease: Bun/Cr - 66/4.8 Nephrology, Dr. Flores, consulted. Help appreciated. As per machine tool electrician, pt will inevitably require dialysis; does not need it acutely now, since pt has now uremic symptoms nor any electrolyte abnormalities Hyperphosphatemia: Renagel 1600 mg po wm per renal - avoid calcium acetate or any calcium binder Coronary Artery Disease: Plavix 75 mg po qd Lipitor 40 mg po din Aspirin 81 mg po qd Lopressor 25 mg po bid HTN: Lopressor 25 mg po bid Hydralazine 25 mg po tid Hypercholesterolemia: Lipitor 40 mg po din Diabetes Mellitus: Glucose -385 Accuchecks Humalog sliding scale Levemir 14 units sc bid Peripheral neuropathy: Neurontin 300 mg po qd Anemia: H/H: 10.4/31.4 Feosol 324 mg po tid recheck iron on 11/05 Prophylactic Measures: GI: Pepcid 20 mg po daily DVT: hperarin 5000 units sc q8h Vitamin D 2000 units iu po qd Tylenol 650 mg po q6h prn for fever > 100.4 <Dany Wiley - Last Filed: 11/04/16 16:29> Objective - Vital Signs/Intake and Output Vital Signs (last 24 hours): Temp Pulse Resp BP Pulse Ox 97.3 F L 86 19 132/73 99 11/04/16 12:00 11/04/16 15:45 11/04/16 15:45 11/04/16 15:45 11/04/16 06:00 Intake and Output: 11/04/16 11/04/16 06:59 18:59 Intake Total 240 Balance 240 - Medications Medications: Current Medications Acetaminophen (Tylenol 325mg Tab) 650 mg PO Q6H PRN PRN Reason: Fever >100.4 F Last Admin: 11/04/16 13:09 Dose: 650 mg Acetylcysteine (Acetylcysteine 20%) 6 ml PO BID [facility] Last Admin: 11/04/16 09:34 Dose: 6 ml Albuterol/Ipratropium (Duoneb 3 Mg/0.5 Mg (3 Ml) Ud) 3 ml IH [id number] [facility] Last Admin: 11/04/16 14:02 Dose: 3 ml Aspirin (Ecotrin) 81 mg PO DAILY [facility] Last Admin: 11/04/16 12:31 Dose: Not Given Atorvastatin Calcium (Lipitor) 40 mg PO DIN [facility] Last Admin: 11/03/16 17:42 Dose: 40 mg Cholecalciferol (Vitamin D) 2,000 iu PO DAILY [facility] Last Admin: 11/04/16 12:53 Dose: 2,000 iu Clopidogrel Bisulfate (Plavix) 75 mg PO DAILY [facility] Last Admin: 11/04/16 12:36 Dose: Not Given Docusate Sodium (Colace) 100 mg PO BID [facility] Last Admin: 11/04/16 12:34 Dose: Not Given Famotidine (Pepcid) 20 mg PO DAILY [facility] Last Admin: 11/04/16 12:36 Dose: Not Given Ferrous Sulfate (Feosol) 324 mg PO TID [facility] Last Admin: 11/04/16 13:01 Dose: 324 mg Gabapentin (Neurontin) 300 mg PO DAILY [facility] PRN Reason: Protocol Last Admin: 11/04/16 12:53 Dose: 300 mg Heparin Sodium (Porcine) (Heparin) 5,000 units SC Q8 [facility] PRN Reason: Protocol Last Admin: 11/04/16 13:01 Dose: 5,000 units Hydralazine HCl (Apresoline) 25 mg PO TID [facility] Last Admin: 11/04/16 13:01 Dose: 25 mg Furosemide 240 mg/ Dextrose 250 mls @ 10.41 mls/hr IV .Q24H [facility]; 10 MG/HR PRN Reason: Protocol Last Admin: 11/04/16 04:46 Dose: 10.41 mls/hr Insulin Detemir (Levemir) 20 unit SC Q12 [facility] Last Admin: 11/04/16 12:35 Dose: Not Given Insulin Human Lispro (Humalog Med) 0 units SC ACHS [facility] PRN Reason: Protocol Last Admin: 11/04/16 16:15 Dose: 3 units Metoprolol Tartrate (Lopressor) 25 mg PO BID [facility] Last Admin: 11/04/16 12:52 Dose: 25 mg Polyethylene Glycol (Miralax) 17 gm PO BID [facility] Last Admin: 11/04/16 12:35 Dose: Not Given Prednisone (Prednisone Tab) 10 mg PO DAILY [facility] Last Admin: 11/04/16 12:53 Dose: 10 mg Sevelamer HCl (Renagel) 2,400 mg PO WM [facility] Last Admin: 11/04/16 12:53 Dose: 2,400 mg Sodium Chloride (Harney Nasal [place]) 0 ml NS Q6H PRN PRN Reason: Nasal congestion Last Admin: 11/03/16 22:47 Dose: 2 sprays - Labs Labs: 11/04/16 06:35 11/04/16 06:35 APTT 23.7 Seconds (23.7-30.8) 11/04/16 06:35 Assessment and Plan - Assessment and Plan (Free Text) Assessment: attending note; Patient seen and examined with resident. Patient is a 46 year old female with obesity, IDDM, HTN, CAD s/p CABG, CKD secondary to nephrotic syndrome, cardiomyopathy who got admitted for evaluation of shortness of breath most likely due to copd exacerbation vs CHF exacerbation due to systolic dysfunction (ef21%). Initially treated with IV primacor. currently on IV Lasix dripfor diuresis. Will start mucomyst as there is a plan for possible cath tomorrow. case discussed with patient and patient's mother in detail with machine tool electrician. currently patient is agreeing for cardiac cath. The possibility of hemodialysis after cardiac acth Discussed with patient and family in detail. Patient agreed for both cardiac cath and hemodialysis. Risks and benefits explained. She has anemia of chronic disease. DVT/GI prophylaxis Diabetes and hypertension; medications adjusted. case discussed with nephrology and cardiology in detail. Attending/Attestation - Attestation I have personally seen and examined this patient.: Yes I have fully participated in the care of the patient.: Yes I have reviewed all pertinent clinical information, including history, physical exam and plan: Yes
[2016-11-04] MEDS: Albuterol-Ipratrop 3 mg / 0.5 (3 ml) UD IH SCH ×6 (00:48→20:02)
[2016-11-04] MEDS: WATER IV SCH (04:46)
[2016-11-04] MEDS: FUROSEMIDE IV SCH (04:46)
[2016-11-04] MEDS: DEXTROSE 5% IV SCH (04:46)
[2016-11-04] MEDS ORDERED: Sodium Bicarbonate (8.4%) 50 Meq Syringe ONE ×2 (06:26→06:29)
[2016-11-04 06:41] LABS: ADD MANUAL DIFF? NO
[2016-11-04 07:05] LABS: BASO # 0.01 K/mm3 (0.0-2.0); BASO % 0.2 % (0.0-3.0); EOS # 0.2 (0.0-0.7); EOS % 2.8 % (1.5-5.0); GRAN % 74.8 % (50.0-68.0); HEMATOCRIT 30.3 % (36.0-48.0); LYMPH # 0.9 (1.2-3.4); LYMPH % 15.4 % (22.0-35.0); MEAN CELL VOLUME 89.1 fL (80.0-105.0); MEAN CORPUSCULAR HEMOGLOBIN 29.1 pg (25.0-35.0); MEAN CORPUSCULAR HGB CONC 32.7 g/dl (31.0-37.0); MEAN PLATELET VOLUME 9.6 fl (7.0-11.0); MONO # 0.4 (0.1-0.6); MONO % 6.8 % (1.0-6.0); PLATELET COUNT 245 10^3/uL (120.0-450.0); RED CELL DISTRIBUTION WIDTH 13.4 % (11.5-14.5)
[2016-11-04 07:08] LABS: ALB/GLOB RATIO 0.8 (1.1-1.8); BILIRUBIN,TOTAL 0.2 mg/dL (0.2-1.3); CALCIUM 8.3 mg/dL (8.4-10.5); MAGNESIUM 1.8 mg/dL (1.7-2.2); PHOSPHOROUS 6.4 mg/dL (2.5-4.5); TOTAL PROTEIN 5.9 g/dL (5.8-8.3)
[2016-11-04 07:23] LABS: IRON 79 ug/dL (45-180)
[2016-11-04] MEDS ORDERED: Lidocaine 2% Inj (20ml) ONE (08:14)
[2016-11-04] MEDS ORDERED: Iodixanol 320 mg/ml 150 ml Bottle IV ONE (08:14)
[2016-11-04] MEDS ORDERED: Phenylephrine 10 mg/ml Inj ONE (08:14)
[2016-11-04] MEDS ORDERED: Iohexol 350mgl/ml 50 ML ONE (08:14)
[2016-11-04] MEDS ORDERED: Acetylcysteine 20% Inhal Sol (30ml) ONE (09:29)
[2016-11-04] MEDS: Acetylcysteine 20% Inhal Soln (4ml) PO SCH ×2 (09:34→18:02)
--- NOTE | 2016-11-04 09:34 | CP.PCM.PN ---
<AlvarezMendozaWade - Last Filed: 11/04/16 16:51> Subjective - Date & Time of Evaluation Date of Evaluation: 11/04/16 Time of Evaluation: 07:00 - Subjective Subjective: 46 year old female with past medical history notable for DM, HLD, HTN, CAD s/p CABG, chronic renal insufficiency presenting to the ED for acute onset of shortness of breath, chest pain and difficulty breathing. Today, pt. has no complaints, and is getting ready for cardiac cath later this morning. She denies headache, fever, chills, chest pain, difficulty breathing, dysuria, nausea, and vomiting. Objective - Vital Signs/Intake and Output Vital Signs (last 24 hours): Temp Pulse Resp BP Pulse Ox 98.0 F 80 20 144/83 99 11/04/16 06:00 11/04/16 06:00 11/04/16 06:00 11/04/16 06:00 11/04/16 06:00 Intake and Output: 11/04/16 11/04/16 06:59 18:59 Intake Total 240 Balance 240 - Medications Medications: Current Medications Acetaminophen (Tylenol 325mg Tab) 650 mg PO Q6H PRN PRN Reason: Fever >100.4 F Last Admin: 10/30/16 09:50 Dose: 650 mg Acetylcysteine (Acetylcysteine 20%) 6 ml PO BID [facility] Last Admin: 11/03/16 17:40 Dose: 6 ml Albuterol/Ipratropium (Duoneb 3 Mg/0.5 Mg (3 Ml) Ud) 3 ml IH [id number] [facility] Last Admin: 11/04/16 08:09 Dose: Not Given Aspirin (Ecotrin) 81 mg PO DAILY [facility] Last Admin: 11/03/16 10:53 Dose: 81 mg Atorvastatin Calcium (Lipitor) 40 mg PO DIN [facility] Last Admin: 11/03/16 17:42 Dose: 40 mg Cholecalciferol (Vitamin D) 2,000 iu PO DAILY [facility] Last Admin: 11/03/16 10:51 Dose: 2,000 iu Clopidogrel Bisulfate (Plavix) 75 mg PO DAILY [facility] Last Admin: 11/03/16 10:49 Dose: 75 mg Docusate Sodium (Colace) 100 mg PO BID [facility] Last Admin: 11/03/16 17:41 Dose: 100 mg Doxycycline Hyclate (Doryx) 100 mg PO Q12 [facility] PRN Reason: Protocol Last Admin: 11/03/16 22:44 Dose: 100 mg Famotidine (Pepcid) 20 mg PO DAILY [facility] Ferrous Sulfate (Feosol) 324 mg PO TID [facility] Last Admin: 11/03/16 17:41 Dose: 324 mg Gabapentin (Neurontin) 300 mg PO DAILY [facility] PRN Reason: Protocol Last Admin: 11/03/16 10:50 Dose: 300 mg Heparin Sodium (Porcine) (Heparin) 5,000 units SC Q8 [facility] PRN Reason: Protocol Last Admin: 11/04/16 08:09 Dose: Not Given Hydralazine HCl (Apresoline) 25 mg PO TID [facility] Last Admin: 11/03/16 17:41 Dose: 25 mg Furosemide 240 mg/ Dextrose 250 mls @ 10.41 mls/hr IV .Q24H [facility]; 10 MG/HR PRN Reason: Protocol Last Admin: 11/04/16 04:46 Dose: 10.41 mls/hr Insulin Detemir (Levemir) 20 unit SC Q12 [facility] Last Admin: 11/03/16 22:44 Dose: 20 unit Insulin Human Lispro (Humalog Med) 0 units SC ACHS [facility] PRN Reason: Protocol Last Admin: 11/03/16 22:50 Dose: Not Given Metoprolol Tartrate (Lopressor) 25 mg PO BID [facility] Last Admin: 11/03/16 17:48 Dose: 25 mg Polyethylene Glycol (Miralax) 17 gm PO BID [facility] Last Admin: 11/03/16 17:43 Dose: 17 gm Prednisone (Prednisone Tab) 10 mg PO DAILY [facility] Last Admin: 11/03/16 10:51 Dose: 10 mg Sevelamer HCl (Renagel) 2,400 mg PO WM [facility] Last Admin: 11/03/16 17:40 Dose: 2,400 mg Sodium Chloride ([place] Nasal [place]) 0 ml NS Q6H PRN PRN Reason: Nasal congestion Last Admin: 11/03/16 22:47 Dose: 2 sprays - Labs Labs: 11/04/16 06:35 11/04/16 06:35 APTT 23.7 Seconds (23.7-30.8) 11/04/16 06:35 - Constitutional Appears: No Acute Distress - Head Exam Head Exam: ATRAUMATIC - Eye Exam Eye Exam: EOMI - ENT Exam ENT Exam: Mucous Membranes Moist - Neck Exam Neck Exam: Normal Inspection. absent: Lymphadenopathy - Respiratory Exam Respiratory Exam: Clear to Ausculation Bilateral, NORMAL BREATHING PATTERN - Cardiovascular Exam Cardiovascular Exam: REGULAR RHYTHM, RRR, +S1, +S2. absent: JVD - GI/Abdominal Exam GI & Abdominal Exam: Soft, Normal Bowel Sounds. absent: Tenderness - Extremities Exam Extremities Exam: Joint Swelling, Pedal Edema - Back Exam Back Exam: NORMAL INSPECTION - Neurological Exam Neurological Exam: Alert, Awake, Oriented x3 - Psychiatric Exam Psychiatric exam: Normal Affect, Normal Mood - Skin Skin Exam: Dry, Intact, Normal Color, Warm Assessment and Plan - Assessment and Plan (Free Text) Assessment: 46 year old female with past medical history of DM, HLD, HTN, CAD s/p CABG, depression, and chronic renal insufficiency presented to the ED for acute onset of shortness of breath and chest pain likely secondary to COPD exacerbation vs CHF exacerbation vs systolic dysfunction. Plan: Acute on Chronic CHF: Troponin x 1 - 0.05 Pro-BNP 64501 Initial CXR - minimal bibasilar infiltrates and small effusions, no changes from previous CXR on last admission (please see full report) Repeat CXR - no interval changes (please see full report) Lower Ext[place] venous ultrasound - negative for DVTs, limited study (please see full report) Cardiology, Dr. Cintron, consulted. Help appreciated. Cardiology recommends conservative approach for now, due to advanced renal insufficiency Milrinone drip Torsemide 10 mg po bid 11/04 Pt. scheduled for cardiac cath this morning COPD Exacerbation: Afebrile, nontachycardic No leukocytosis Blood cultures negative after 3 days Acetylcysteine 6 ml po bid Duonebs q6h Doxycycline 100 mg po q12h Right Breast Pain: Breast ultrasound -No mammorgraphic or sonographic evidence of malignancy -bilateral trabecular coarsening and diffuse cutaneous edema consistent with known CHF and nephrotic syndrome End-Stage Renal Disease: Bun/Cr - 66/4.8 Nephrology, Dr. Flores, consulted. Help appreciated. 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, pt will inevitably require dialysis; does not need it acutely now, since pt has now uremic symptoms nor any electrolyte abnormalities possible dialysis s/p cardiac cath procedure Hyperphosphatemia: Renagel 1600 mg po wm Coronary Artery Disease: Plavix 75 mg po qd Lipitor 40 mg po din Aspirin 81 mg po qd Lopressor 25 mg po bid HTN: Lopressor 25 mg po bid Hydralazine 25 mg po tid Hypercholesterolemia: Lipitor 40 mg po din Diabetes Mellitus: Glucose -385 Accuchecks Humalog sliding scale Levemir 14 units sc bid Peripheral neuropathy: Neurontin 300 mg po qd Anemia: H/H: 10.4/31.4 Feosol 324 mg po tid Prophylactic Measures: GI: Pepcid 20 mg po bid DVT: hperarin 5000 units sc q8h Vitamin D 2000 units iu po qd Tylenol 650 mg po q6h prn for fever > 100.4 <Dany Wiley - Last Filed: 11/04/16 17:45> Objective - Vital Signs/Intake and Output Vital Signs (last 24 hours): Temp Pulse Resp BP Pulse Ox 97.3 F L 85 20 143/74 99 11/04/16 12:00 11/04/16 16:45 11/04/16 16:45 11/04/16 16:45 11/04/16 06:00 Intake and Output: 11/04/16 11/04/16 06:59 18:59 Intake Total 240 Balance 240 - Medications Medications: Current Medications Acetaminophen (Tylenol 325mg Tab) 650 mg PO Q6H PRN PRN Reason: Fever >100.4 F Last Admin: 11/04/16 13:09 Dose: 650 mg Acetylcysteine (Acetylcysteine 20%) 6 ml PO BID [facility] Last Admin: 11/04/16 09:34 Dose: 6 ml Albuterol/Ipratropium (Duoneb 3 Mg/0.5 Mg (3 Ml) Ud) 3 ml IH [id number] [facility] Last Admin: 11/04/16 14:02 Dose: 3 ml Aspirin (Ecotrin) 81 mg PO DAILY [facility] Last Admin: 11/04/16 12:31 Dose: Not Given Atorvastatin Calcium (Lipitor) 40 mg PO DIN [facility] Last Admin: 11/03/16 17:42 Dose: 40 mg Cholecalciferol (Vitamin D) 2,000 iu PO DAILY [facility] Last Admin: 11/04/16 12:53 Dose: 2,000 iu Clopidogrel Bisulfate (Plavix) 75 mg PO DAILY [facility] Last Admin: 11/04/16 12:36 Dose: Not Given Docusate Sodium (Colace) 100 mg PO BID [facility] Last Admin: 11/04/16 12:34 Dose: Not Given Famotidine (Pepcid) 20 mg PO DAILY [facility] Last Admin: 11/04/16 12:36 Dose: Not Given Ferrous Sulfate (Feosol) 324 mg PO TID [facility] Last Admin: 11/04/16 13:01 Dose: 324 mg Gabapentin (Neurontin) 300 mg PO DAILY [facility] PRN Reason: Protocol Last Admin: 11/04/16 12:53 Dose: 300 mg Heparin Sodium (Porcine) (Heparin) 5,000 units SC Q8 [facility] PRN Reason: Protocol Last Admin: 11/04/16 13:01 Dose: 5,000 units Hydralazine HCl (Apresoline) 25 mg PO TID [facility] Last Admin: 11/04/16 13:01 Dose: 25 mg Furosemide 240 mg/ Dextrose 250 mls @ 10.41 mls/hr IV .Q24H [facility]; 10 MG/HR PRN Reason: Protocol Last Admin: 11/04/16 04:46 Dose: 10.41 mls/hr Insulin Detemir (Levemir) 25 unit SC Q12 [facility] Insulin Human Lispro (Humalog Med) 0 units SC ACHS [facility] PRN Reason: Protocol Last Admin: 11/04/16 16:15 Dose: 3 units Metoprolol Tartrate (Lopressor) 25 mg PO BID [facility] Last Admin: 11/04/16 12:52 Dose: 25 mg Polyethylene Glycol (Miralax) 17 gm PO BID [facility] Last Admin: 11/04/16 12:35 Dose: Not Given Sevelamer HCl (Renagel) 2,400 mg PO WM [facility] Last Admin: 11/04/16 12:53 Dose: 2,400 mg Sodium Chloride ([place] Nasal [place]) 0 ml NS Q6H PRN PRN Reason: Nasal congestion Last Admin: 11/03/16 22:47 Dose: 2 sprays - Labs Labs: 11/04/16 06:35 11/04/16 06:35 APTT 23.7 Seconds (23.7-30.8) 11/04/16 06:35 Assessment and Plan - Assessment and Plan (Free Text) Assessment: attending note; Patient seen and examined with resident. Patient is a 46 year old female with obesity, IDDM, HTN, CAD s/p CABG, CKD secondary to nephrotic syndrome, cardiomyopathy who got admitted for evaluation of shortness of breath most likely due to copd exacerbation vs CHF exacerbation due to systolic dysfunction (ef21%). Initially treated with IV primacor. currently on IV Lasix drip for diuresis. on mucomyst. cardiac cath today by Dr. day. currently patient is agreeing for cardiac cath. The possibility of hemodialysis after cardiac acth Discussed with patient and family in detail. Patient agreed for both cardiac cath and hemodialysis. Risks and benefits explained. She has anemia of chronic disease. DVT/GI prophylaxis Diabetes and hypertension; medications adjusted. Attending/Attestation - Attestation I have personally seen and examined this patient.: Yes I have fully participated in the care of the patient.: Yes I have reviewed all pertinent clinical information, including history, physical exam and plan: Yes
--- NOTE | 2016-11-04 10:06 | PN ---
DATE: 11/04/2016 CARDIAC FOLLOWUP After thinking it over and discussing it with her mother overnight, the patient has agreed to cardiac catheterization. Multiple physicians have discussed with her about the risks of the procedure, especially emphasizing the high probability of renal failure due to contrast nephropathy after the procedure. The patient has thought it over and understands that there is a high likelihood of needing dialysis immediately a fter the procedure, which will be a lifetime disorder. Given her end-stage renal disease, she also u nderstands that even without catheterization, the likelihood of needing dialysis is very high. I once again emphasized to her about the risk of cardiac catheterization including contrast nephropat hy and the need for dialysis. The patient this morning has thought it through, has been able to ask all questions and understands, and is agreeable to the procedure, and she accepts the risk of the hig h probability of needing dialysis after the procedure. We will pretreat her with medications along w ith guidance from nephrology prior to her catheterization. IV bicarb will be started. Mucomyst has been started, and IV hydration will be given. Austin Markham MD cc: [id number] TT: 11/04/2016 09:10:00 Confirmation # [id number] Dictation # [id number] jn
[2016-11-04] MEDS ORDERED: Midazolam 2 MG/2 ML VIAL ONE ×2 (10:18→11:00)
[2016-11-04] MEDS ORDERED: Nitroglycerin 50mg in D5W 250 ML IV ONE (10:54)
[2016-11-04] MEDS ORDERED: Iodixanol 320 MG/ML 100 ML BOTTLE IV ONE (11:02)
--- NOTE | 2016-11-04 12:31 | CARDCATH ---
PROCEDURE DATE: 11/04/2016 CARDIAC CATHETERIZATION AND PERCUTANEOUS TRANSLUMINAL CORONARY ANGIOPLASTY The patient presents with an ischemic dilated cardiomyopathy with a markedly abnormal stress test. H er renal function was noted to be worsening with a creatinine of 5.1. After extensive informed consent by several physicians and nurses, and explaining the risk of the pro cedure including the high probability of needing dialysis after the procedure, the patient and family agreed to the procedure, fully understanding the risks. PROCEDURE: Left heart catheterization with coronary angiography, left ventriculogram, SALDANA angiogram , saphenous vein graft angiogram followed by PTCA and stent of an LAD through the SALDANA. The right femoral artery was cannulated with a 6-[place]alt[place] sheath. There were no complications. Findings on catheterization revealed an LVEDP that was measured to have an LVEDP of 20 mmHg. Her coronary anatomy revealed a diffusely diseased left main artery with a 70% distal left main steno sis. The small diffusely diseased circumflex revealed a 90% stenosis at its ostium. The LAD was occluded in its proximal portion. The RCA was a dominant vessel and was occluded in its mid portion. The saphenous vein graft to the RCA was found to be patent and provided good antegrade flow. The saphenous vein graft to the diagonal vessel was found to be patent and provided flow to a small a nd diffusely diseased diagonal vessel. Supra-aortic valvular injection revealed no other saphenous vein grafts. The SALDANA to the LAD was found to be patent and provided good antegrade flow to a 90% anastomotic site lesion in the mid LAD. The rest of the LAD was diffusely diseased and small in caliber. The patient was started on intravenous Angiomax. Under fluoroscopic guide, the guiding catheter was placed in the ostium of the SALDANA. Using a long ATW wire, the wire was able to cross the critical lesion through the SALDANA into the LAD. A 2.0 balloon was utilized to predilate the anastomotic site lesion. A 2.25 stent, which was a drug-eluting stent, was placed and deployed at 12 atmospheres of pressure i n the anastomotic site. Repeat coronary angiography revealed an excellent result with resolution of the critical lesion and MARTHA 3 flow. Angio-Seal was used to close the femoral artery site. The patient tolerated the procedure well. SUMMARY: In summary, the procedure revealed: 1. Severe triple-vessel disease with left main stenosis. 2. Patent SVG to the RCA. 3. Patent SVG to the small diagonal vessel. 4. Patent SALDANA to the LAD with a 90% anastomotic site lesion in a diffusely diseased LAD. 5. Successful PTCA and stent of the LAD through the SALDANA at the anastomotic site with a drug-eluting stent. 6. The LVEDP with elevated at 20. Given these findings, the patient will need to remain on aspirin indefinitely and Plavix for at least 1 year. I have discussed with renal about continuing the IV bicarb. We will check her creatinine in the morning. There is high probability, given the contrast load that was used, that the patient's kidney function will deteriorate. Austin Markham MD cc: [id number] TT: 11/04/2016 12:30:20 jn
[2016-11-04] MEDS: POLYETHYLENE GLYCOL 3350 17 GM/Dose PACKET PO SCH ×2 (12:35→18:03)
[2016-11-04] MEDS: Insulin Detemir 100 units/ml Vial (Levemir) SC SCH ×2 (12:35→22:54)
[2016-11-04] MEDS: Insulin Lispro (humaLOG) MEDIUM Coverage SC SCH ×3 (12:35→22:31)
[2016-11-04] MEDS ORDERED: Oxycodone/Acetaminophen 5/325 mg Tab PO STA (16:02)
--- NOTE | 2016-11-04 19:52 | CARD ---
APPROVED REPORT EKG Measurement Heart [id number] <Conclusion> Normal sinus rhythm with sinus arrhythmia Incomplete left bundle branch block Nonspecific T wave abnormality Prolonged QT Abnormal ECG
[2016-11-04] MEDS ORDERED: Darbepoetin Alfa 100 mcg/ml Inj SC ONE (22:41)
[2016-11-05] MEDS: Albuterol-Ipratrop 3 mg / 0.5 (3 ml) UD IH SCH ×4 (01:14→19:53)
[2016-11-05] MEDS: FUROSEMIDE IV SCH (02:53)
[2016-11-05] MEDS: WATER IV SCH (02:53)
[2016-11-05] MEDS: DEXTROSE 5% IV SCH (02:53)
[2016-11-05] MEDS: Insulin Lispro (humaLOG) MEDIUM Coverage SC SCH ×4 (07:35→21:54)
[2016-11-05 07:55] LABS: ADD MANUAL DIFF? NO
[2016-11-05 08:02] LABS: EOS # 0.1 (0.0-0.7); EOS % 1.8 % (1.5-5.0); GRAN # 6.35 (1.4-6.5); GRAN % 83.7 % (50.0-68.0); HEMATOCRIT 32.1 % (36.0-48.0); LYMPH # 0.6 (1.2-3.4); LYMPH % 8.4 % (22.0-35.0); MEAN CELL VOLUME 90.2 fL (80.0-105.0); MEAN CORPUSCULAR HEMOGLOBIN 28.9 pg (25.0-35.0); MEAN CORPUSCULAR HGB CONC 32.1 g/dl (31.0-37.0); MEAN PLATELET VOLUME 9.9 fl (7.0-11.0); MONO # 0.5 (0.1-0.6); MONO % 6.1 % (1.0-6.0); PLATELET COUNT 309 10^3/uL (120.0-450.0); RED CELL DISTRIBUTION WIDTH 13.4 % (11.5-14.5); WHITE BLOOD COUNT 7.6 10^3/ul (4.5-11.0)
--- NOTE | 2016-11-05 08:21 | PN ---
DATE: 11/04/2016 The patient was seen on telemetry. She was status post cardiac catheterization earlier today, which she tolerated well. She was noted to have severe triple vessel coronary artery disease with left bianka n stenosis, and a 90% stenotic site lesion at her SALDANA to LAD, with a diffusely diseased LAD for whic h she underwent successful PTCA and stent of the LAD to the SALDANA at the anastomotic site with a drug- eluting stent. Left ventricular end-diastolic pressure was noted to be 20 mmHg. There was no left v entriculogram performed. When I saw the patient, she was on telemetry and lying supine, and had no c omplaints. She did not appear to be dyspneic. VITAL SIGNS: As follows: Blood pressure is 141/71, heart rate 84, oral temperature 98.7, respirator y rate is 18. I's and O's do not appear to be strictly documented, but were 600/1000. The remainder of the exam was as follows: The patient was normocephalic and atraumatic without any sinus tenderness. NECK: Supple with full range of motion. Trachea midline and freely movable. Thyroid was nontender, nor was it enlarged. There is no jugular venous distention, but this was difficult to appreciate se condary to the patient's body habitus. LUNGS [place]: On my exam were grossly clear to auscultation. There were no rales, rhonchi, or wheezi ng because the patient just had cardiac catheterization. She was unable to sit up to fully auscultat e her lungs. CARDIAC EXAMINATION: Had a regular rate and rhythm without any rubs or gallops. There were no heave s, and the PMI was nondisplaced. ABDOMEN: Soft, nontender, nondistended, without any rebounding, guarding, or rigidity. I was not ab le to appreciate any hepatosplenomegaly. EXTREMITIES: Notable for anasarca. NEUROLOGICALLY: The patient was nonfocal. VASCULAR EXAMINATION: Had no bruits. SKIN: Appeared to be intact. LABORATORY STUDIES: As follows: White count is 6, H and H is 9.9/30.3, with a platelet count of 15, 400, MCV is 89. Sodium is 136, potassium is 4.0, chloride is 106, bicarbonate 20, BUN/creatinine is 82/5.3, with a glucose of 221, calcium is 8.3, but corrects to 9.3 since albumin is 2.7, phosphorus i s 6.4, magnesium is 1.8. Ferritin is 286, transferrin saturation is 40%. There is no new microbiolo gy data to report. There is no new imaging to report. Cath reports is as stated above. IMPRESSION/PLAN: The patient is a 46-year-old obese female (BMI 48 kg/m2) with type 2 diabetes chapo chiang that is insulin-dependent and uncontrolled, hypertension, dyslipidemia, coronary artery disease w ith history of 3-vessel coronary artery bypass graft, and recent abnormal stress test with an ejectio n fraction of approximately 27%, stage IV chronic kidney disease that has been progressively worsenin g with nephrotic syndrome presumed secondary to diabetic nephropathy, obstructive sleep apnea for whi ch she is on BiPAP as an outpatient. Also chronic obstructive pulmonary disease, chronic left foot u lceration, originally admitted with sudden onset of shortness of breath secondary to chronic obstruct benitez pulmonary disease exacerbation as well as secondary to heart failure with reduced ejection fracti on. She is status post cardiac catheterization today. 1. The patient received intravenous fluids to help decrease the risk of contrast nephropathy before t he catheterization, and these were continued after the catheterization for approximately 6 hours or s o, and then were discontinued. 2. The patient also is on Mucomyst, and we will discontinue it after tomorrow's dosing in an attempt to decrease her risk of contrast nephropathy. 3. Prior to the cardiac catheterization, I had a lengthy discussion with the patient and her mother o n 2 separate occasions, informing them that she was at elevated risk of worsening renal function and requiring the initiation of dialysis with cardiac catheterization. However, given the abnormal stres s test, the cardiac catheterization was indicated for that purpose. The patient explained the risk o f worsening renal failure and likely need for dialysis following the cardiac catheterization, as did her mother. 4. For now, given the patient's anasarca, we will resume her furosemide at 10 mg per hour. She was n oted to have an elevated left ventricular end diastolic pressure of 20 on her cardiac catheterization . 5. The patient remains hypophosphatemic at 6.4. Her sevelamer yesterday was increased to 2400 mg orally with each meal. and we will see how she does with this. 6. The patient is status post drug-eluting stent and is on dual antiplatelet therapy with aspirin as well as clopidogrel. She is also on high intensity statin therapy with atorvastatin 40 mg orally twi ce daily and metoprolol 25 mg orally daily. 7. We will recheck the patient's renal function tomorrow. Hopefully, the creatinine will peak and be gin to decrease. If it does not, then the patient would require hemodialysis via catheter during thi s admission. 8. Ultimately, however, the patient will require creation of an AV fistula, and we will discuss with cardiology when this could be done, since it may entail temporarily holding her antiplatelet agents, and when this would be least risky the patient. 9. For deep venous thrombosis prophylaxis, continue heparin 5000 units subcutaneously every 8 hours. 10. Iron studies show that the patient has adequate iron and she would not benefit from intravenous iron at this point. We will also discontinue her oral iron since it is less effective in patients wi th advanced chronic kidney disease. I will start the patient on Aranesp 100 mcg subcutaneously weekl y. Goal hemoglobin with chronic kidney disease is between 10-11. She does not require any transfusi ons at this time. 11. The patient's obesity at this point precludes her from being a transplant candidate. However, I told her that if she were to lose weight, then this could be reevaluated. Her ejection fraction may also improve with weight loss as well. 12. Since the patient is on dual antiplatelet therapy for gastrointestinal prophylaxis, she will remain on famotidine 20 mg daily as well. 13. If the patient is not in sufficiently negative fluid balance, I will increase the furosemide infu robert tomorrow. If her renal function continues to deteriorate, then we will initiate dialysis. Review of systems, past medical history, social history, and family history were all reviewed, and th ere were no new changes. Gary Flores MD cc: [id number] TT: 11/04/2016 23:24:23 Confirmation # [id number] Dictation # [id number] eliceo
[2016-11-05 08:38] LABS: ALB/GLOB RATIO 0.9 (1.1-1.8); BILIRUBIN,TOTAL 0.3 mg/dL (0.2-1.3); CALCIUM 8.5 mg/dL (8.4-10.5); MAGNESIUM 1.8 mg/dL (1.7-2.2); PHOSPHOROUS 6.5 mg/dL (2.5-4.5); POTASSIUM 4.2 mmol/L (3.6-5.0); TOTAL PROTEIN 6.3 g/dL (5.8-8.3)
[2016-11-05] MEDS: Insulin Detemir 100 units/ml Vial (Levemir) SC SCH ×2 (09:31→21:54)
[2016-11-05] MEDS: Acetylcysteine 20% Inhal Soln (4ml) PO SCH ×3 (09:32→17:31)
[2016-11-05] MEDS: POLYETHYLENE GLYCOL 3350 17 GM/Dose PACKET PO SCH ×2 (09:34→20:08)
--- NOTE | 2016-11-05 10:05 | CP.PCM.PN ---
<Wade Alvarez - Last Filed: 11/05/16 17:20> Subjective - Date & Time of Evaluation Date of Evaluation: 11/05/16 Time of Evaluation: 09:30 - Subjective Subjective: 46 year old female with past medical history notable for DM, HLD, HTN, CAD s/p CABG, chronic renal insufficiency presenting to the ED for acute onset of shortness of breath, chest pain and difficulty breathing. Pt. is s/p cardiac cath with 1 stent placed in the LAD. Today she is resting comfortably and has no complaints. She denies headaches, chest pain, difficulty breathing, nausea, vomiting or diarrhea. Objective - Vital Signs/Intake and Output Vital Signs (last 24 hours): Temp Pulse Resp BP Pulse Ox 98.7 F 76 20 149/84 99 11/05/16 06:00 11/05/16 09:48 11/05/16 06:00 11/05/16 09:31 11/04/16 06:00 Intake and Output: 11/05/16 11/05/16 06:59 18:59 Intake Total 720 Output Total 1000 Balance -280 - Medications Medications: Current Medications Acetaminophen (Tylenol 325mg Tab) 650 mg PO Q6H PRN PRN Reason: Fever >100.4 F Last Admin: 11/04/16 13:09 Dose: 650 mg Acetylcysteine (Acetylcysteine 20%) 6 ml PO BID COUNTS INCLUDE 234 BEDS AT THE [facility] Last Admin: 11/05/16 09:32 Dose: 6 ml Albuterol/Ipratropium (Duoneb 3 Mg/0.5 Mg (3 Ml) Ud) 3 ml IH [id number] COUNTS INCLUDE 234 BEDS AT THE [facility] Last Admin: 11/05/16 08:22 Dose: Not Given Aspirin (Ecotrin) 81 mg PO DAILY COUNTS INCLUDE 234 BEDS AT THE [facility] Last Admin: 11/05/16 09:31 Dose: 81 mg Atorvastatin Calcium (Lipitor) 40 mg PO DIN COUNTS INCLUDE 234 BEDS AT THE [facility] Last Admin: 11/04/16 18:03 Dose: 40 mg Cholecalciferol (Vitamin D) 2,000 iu PO DAILY COUNTS INCLUDE 234 BEDS AT THE [facility] Last Admin: 11/05/16 09:31 Dose: 2,000 iu Clopidogrel Bisulfate (Plavix) 75 mg PO DAILY COUNTS INCLUDE 234 BEDS AT THE [facility] Last Admin: 11/05/16 09:30 Dose: 75 mg Docusate Sodium (Colace) 100 mg PO BID COUNTS INCLUDE 234 BEDS AT THE [facility] Last Admin: 11/05/16 09:30 Dose: 100 mg Famotidine (Pepcid) 20 mg PO DAILY COUNTS INCLUDE 234 BEDS AT THE [facility] Last Admin: 11/05/16 09:31 Dose: 20 mg Gabapentin (Neurontin) 300 mg PO DAILY COUNTS INCLUDE 234 BEDS AT THE [facility] PRN Reason: Protocol Last Admin: 11/05/16 09:30 Dose: 300 mg Heparin Sodium (Porcine) (Heparin) 5,000 units SC Q8 COUNTS INCLUDE 234 BEDS AT THE [facility] PRN Reason: Protocol Last Admin: 11/05/16 06:16 Dose: 5,000 units Hydralazine HCl (Apresoline) 25 mg PO TID COUNTS INCLUDE 234 BEDS AT THE [facility] Last Admin: 11/05/16 09:30 Dose: 25 mg Furosemide 240 mg/ Dextrose 250 mls @ 10.41 mls/hr IV .Q24H KELSI; 10 MG/HR PRN Reason: Protocol Last Admin: 11/05/16 02:53 Dose: 10.41 mls/hr Insulin Detemir (Levemir) 25 unit SC Q12 COUNTS INCLUDE 234 BEDS AT THE [facility] Last Admin: 11/05/16 09:31 Dose: 25 unit Insulin Human Lispro (Humalog Med) 0 units SC ACHS COUNTS INCLUDE 234 BEDS AT THE [facility] PRN Reason: Protocol Last Admin: 11/05/16 07:35 Dose: 3 units Metoprolol Tartrate (Lopressor) 25 mg PO BID COUNTS INCLUDE 234 BEDS AT THE [facility] Last Admin: 11/05/16 09:31 Dose: 25 mg Polyethylene Glycol (Miralax) 17 gm PO BID COUNTS INCLUDE 234 BEDS AT THE [facility] Last Admin: 11/05/16 09:34 Dose: Not Given Sevelamer HCl (Renagel) 2,400 mg PO WM COUNTS INCLUDE 234 BEDS AT THE [facility] Last Admin: 11/05/16 07:36 Dose: 2,400 mg Sodium Chloride ([place] Nasal [place]) 0 ml NS Q6H PRN PRN Reason: Nasal congestion Last Admin: 11/03/16 22:47 Dose: 2 sprays - Labs Labs: 11/05/16 07:28 11/05/16 07:28 APTT 23.7 Seconds (23.7-30.8) 11/04/16 06:35 - Constitutional Appears: Non-toxic, No Acute Distress - Head Exam Head Exam: ATRAUMATIC - Eye Exam Eye Exam: EOMI - ENT Exam ENT Exam: Mucous Membranes Moist - Respiratory Exam Respiratory Exam: Clear to Ausculation Bilateral, NORMAL BREATHING PATTERN - Cardiovascular Exam Cardiovascular Exam: REGULAR RHYTHM - GI/Abdominal Exam GI & Abdominal Exam: Soft, Normal Bowel Sounds. absent: Tenderness - Rectal Exam Rectal Exam: NORMAL INSPECTION - Extremities Exam Extremities Exam: Joint Swelling, Pedal Edema - Neurological Exam Neurological Exam: Alert, Awake - Psychiatric Exam Psychiatric exam: Normal Affect, Normal Mood - Skin Skin Exam: Dry, Intact, Pallor, Warm Assessment and Plan - Assessment and Plan (Free Text) Assessment: 46F, pmh of CHF, HTN, HLD, CKD presented to the ED for acute onset of shortness of breath and chest pain likely secondary to COPD exacerbation vs CHF exacerbation vs systolic dysfunction. S/P Cardiac Cath Day #1, monitoring renal function and setup dialysis if needed. Plan: Chest pain possibly 2/2 COPD exacerbation vs CHF exacerbation vs systolic dysfunction.: Troponin x 1 - 0.05 Pro-BNP 59069 Initial CXR - minimal bibasilar infiltrates and small effusions, no changes from previous CXR on last admission (please see full report) Repeat CXR - no interval changes (please see full report) Lower Extemity venous ultrasound - negative for DVTs, limited study (please see full report) Cardiology, Dr. Cintron, consulted. Help appreciated. -Cardiology performed Cardiac Cath 11/04 and placed one stent in the LAD please see full report, will monitor Cr. for 48hrs, pt. on Aspirin and Plavix End-Stage Renal Disease: Bun/Cr - 80/5.3 Nephrology, Dr. Flores, consulted. Help appreciated. -resume furosemide at 10mg/hr, recheck renal function -will need AV fistula and will discuss with cardio when it could be done given that she is on dual platelet therapy COPD Exacerbation: Afebrile, nontachycardic, no leukocytosis Blood cultures negative after 5 days 10/28 Acetylcysteine 6 ml po bid Duonebs q6h kelsi Hyperphosphatemia: Renagel 2400 mg po wm per renal - avoid calcium acetate or any calcium binder Right Breast Pain: Mammography - no mmammographic or sonographic evidence of malignancy, does not have dense breasts continue annual screening mammorgraphy, as per ACR guidelines please see full report for details Coronary Artery Disease: Plavix 75 mg po qd Lipitor 40 mg po din Aspirin 81 mg po qd Lopressor 25 mg po bid HTN: Lopressor 25 mg po bid Hydralazine 25 mg po tid Hypercholesterolemia: Lipitor 40 mg po din Diabetes Mellitus: Glucose -200s Accuchecks Humalog sliding scale Levemir 14 units sc bid Peripheral neuropathy: Neurontin 300 mg po qd Anemia: H/H: 10.3/32.1 Prophylactic Measures: GI: Pepcid 20 mg po daily DVT: hperarin 5000 units sc q8h Vitamin D 2000 units iu po qd Tylenol 650 mg po q6h prn for fever > 100.4 <Dany Wiley - Last Filed: 11/06/16 15:50> Objective - Vital Signs/Intake and Output Vital Signs (last 24 hours): Temp Pulse Resp BP Pulse Ox 97.8 F 74 20 129/71 100 11/06/16 11:37 11/06/16 13:56 11/06/16 11:37 11/06/16 13:04 11/06/16 05:34 Intake and Output: 11/06/16 11/06/16 06:59 18:59 Intake Total 985 Output Total 350 Balance 635 - Medications Medications: Current Medications Acetaminophen (Tylenol 325mg Tab) 650 mg PO Q6H PRN PRN Reason: Fever >100.4 F Last Admin: 11/06/16 05:08 Dose: 650 mg Albuterol/Ipratropium (Duoneb 3 Mg/0.5 Mg (3 Ml) Ud) 3 ml IH [id number] COUNTS INCLUDE 234 BEDS AT THE [facility] Last Admin: 11/06/16 13:53 Dose: 3 ml Aspirin (Ecotrin) 81 mg PO DAILY COUNTS INCLUDE 234 BEDS AT THE [facility] Last Admin: 11/06/16 09:57 Dose: 81 mg Atorvastatin Calcium (Lipitor) 40 mg PO DIN COUNTS INCLUDE 234 BEDS AT THE [facility] Last Admin: 11/05/16 16:26 Dose: 40 mg Cholecalciferol (Vitamin D) 2,000 iu PO DAILY COUNTS INCLUDE 234 BEDS AT THE [facility] Last Admin: 11/06/16 09:54 Dose: 2,000 iu Clopidogrel Bisulfate (Plavix) 75 mg PO DAILY COUNTS INCLUDE 234 BEDS AT THE [facility] Last Admin: 11/06/16 09:53 Dose: 75 mg Docusate Sodium (Colace) 100 mg PO BID COUNTS INCLUDE 234 BEDS AT THE [facility] Last Admin: 11/06/16 09:53 Dose: 100 mg Famotidine (Pepcid) 20 mg PO DAILY COUNTS INCLUDE 234 BEDS AT THE [facility] Last Admin: 11/06/16 09:57 Dose: 20 mg Gabapentin (Neurontin) 300 mg PO DAILY COUNTS INCLUDE 234 BEDS AT THE [facility] PRN Reason: Protocol Last Admin: 11/06/16 09:57 Dose: 300 mg Heparin Sodium (Porcine) (Heparin) 5,000 units SC Q8 COUNTS INCLUDE 234 BEDS AT THE [facility] PRN Reason: Protocol Last Admin: 11/06/16 13:03 Dose: 5,000 units Hydralazine HCl (Apresoline) 25 mg PO TID COUNTS INCLUDE 234 BEDS AT THE [facility] Last Admin: 11/06/16 13:04 Dose: 25 mg Furosemide 240 mg/ Dextrose 250 mls @ 10.41 mls/hr IV .Q24H KELSI; 10 MG/HR PRN Reason: Protocol Last Admin: 11/06/16 04:58 Dose: 10.41 mls/hr Insulin Detemir (Levemir) 25 unit SC Q12 COUNTS INCLUDE 234 BEDS AT THE [facility] Last Admin: 11/06/16 09:52 Dose: 25 unit Insulin Human Lispro (Humalog Med) 0 units SC ACHS KELSI PRN Reason: Protocol Last Admin: 11/06/16 11:31 Dose: 1 units Metoprolol Tartrate (Lopressor) 25 mg PO BID COUNTS INCLUDE 234 BEDS AT THE [facility] Last Admin: 11/06/16 09:53 Dose: 25 mg Ondansetron HCl (Zofran Inj) 4 mg IVP Q4H PRN PRN Reason: Nausea/Vomiting Last Admin: 11/06/16 07:35 Dose: 4 mg Polyethylene Glycol (Miralax) 17 gm PO BID COUNTS INCLUDE 234 BEDS AT THE [facility] Last Admin: 11/06/16 10:03 Dose: Not Given Sevelamer HCl (Renagel) 2,400 mg PO WM COUNTS INCLUDE 234 BEDS AT THE [facility] Last Admin: 11/06/16 11:32 Dose: 2,400 mg Sodium Chloride ([place] Nasal [place]) 0 ml NS Q6H PRN PRN Reason: Nasal congestion Last Admin: 11/03/16 22:47 Dose: 2 sprays - Labs Labs: 11/06/16 07:00 11/06/16 07:00 APTT 23.7 Seconds (23.7-30.8) 11/04/16 06:35 Assessment and Plan - Assessment and Plan (Free Text) Assessment: attending note; Patient seen and examined with resident. Patient is a 46 year old female with obesity, IDDM, HTN, CAD s/p CABG, CKD secondary to nephrotic syndrome, cardiomyopathy who got admitted for evaluation of shortness of breath most likely due to copd exacerbation vs CHF exacerbation due to systolic dysfunction (ef21%). currently on IV Lasix drip for diuresis. on mucomyst. status post cardiac cath and LAD stent placement by Dr. Markham. Continue aspirin and Plavix. Urine output is adequate. Creatinine is stable at 5.3. Nephrology evaluation appreciated. diabetes; fingerstick is improving. Needs outpatient AV fistula placement in the future. DVT/GI prophylaxis upon discharge patient will follow up with PMD of choice. Attending/Attestation - Attestation I have personally seen and examined this patient.: Yes I have fully participated in the care of the patient.: Yes I have reviewed all pertinent clinical information, including history, physical exam and plan: Yes
--- NOTE | 2016-11-05 10:24 | PN ---
DATE: 11/05/2016 SUBJECTIVE: The patient is comfortable. No shortness of breath, no chest pain. PHYSICAL EXAMINATION: VITAL SIGNS: Blood pressure 149/84, the heart rate is in the 70s. NECK: Negative JVD. LUNGS: No rales noted. HEART: Revealed S1, S2. EXTREMITIES: Without edema. LABORATORIES: The creatinine is 5.3 from her preprocedure creatinine of 5.3. IMPRESSION: 1. Status post percutaneous transluminal coronary angioplasty and stent of a 90% mid left anterior d escending stenosis. 2. History of coronary artery bypass surgery with patent grafts. 3. Severe triple vessel coronary artery disease. 4. End-stage renal disease. 5. Diabetes mellitus. 6. Marked obesity and sedentary life. PLAN: Given these findings, I have discussed with the patient about the need to aggressively alter h er cardiac risk. Will discuss with renal about changing her Lasix to oral medications. Will follow her creatinine for the next 48 hours. Will need to begin physical therapy. Austin Markham MD cc: [id number] TT: 11/05/2016 10:24:06 Confirmation # [id number] Dictation # [id number]
--- NOTE | 2016-11-05 15:26 | CARD ---
APPROVED REPORT EKG Measurement Heart [id number] <Conclusion> Sinus rhythm with occasional premature ventricular complexes Nonspecific T wave abnormality Prolonged QT Abnormal ECG
[2016-11-06] MEDS: Albuterol-Ipratrop 3 mg / 0.5 (3 ml) UD IH SCH ×4 (01:47→20:18)
[2016-11-06] MEDS: WATER IV SCH (04:58)
[2016-11-06] MEDS: DEXTROSE 5% IV SCH (04:58)
[2016-11-06] MEDS: FUROSEMIDE IV SCH (04:58)
[2016-11-06 07:23] LABS: ADD MANUAL DIFF? NO
[2016-11-06 07:35] LABS: EOS # 0.3 (0.0-0.7); EOS % 4.8 % (1.5-5.0); GRAN # 4.81 (1.4-6.5); GRAN % 79.6 % (50.0-68.0); HEMATOCRIT 30.6 % (36.0-48.0); LYMPH # 0.6 (1.2-3.4); LYMPH % 9.6 % (22.0-35.0); MEAN CELL VOLUME 91.1 fL (80.0-105.0); MEAN CORPUSCULAR HEMOGLOBIN 29.2 pg (25.0-35.0); MEAN PLATELET VOLUME 9.8 fl (7.0-11.0); MONO # 0.4 (0.1-0.6); PLATELET COUNT 231 10^3/uL (120.0-450.0); RED CELL DISTRIBUTION WIDTH 13.6 % (11.5-14.5)
--- NOTE | 2016-11-06 08:04 | PN ---
DATE: 11/05/2016 SUBJECTIVE: The patient was seen on telemetry. She is status post cardiac catheterization yesterday . She denies any chest pain, shortness of breath, palpitations or groin pain. She is in good spirit s and accompanied by both her mother as well as sister at bedside. She remains on a Lasix infusion a nd continues to have good urine output. OBJECTIVE: VITAL SIGNS: Blood pressure is 118/61, heart rate 76, oral temperature 97.9, respiratory rate is 18. I's and O's were not strictly documented, but the patient is noted to have gone from 308 pounds to 292 pounds, a 16 pound difference, in 3 days. The remainder of the exam is as follows: HEENT: The patient was normocephalic and atraumatic without any sinus tenderness. NECK: Supple with full range of motion. Trachea was midline and freely movable. Thyroid was nonten oxana nor enlarged. There was no jugular venous distention. Conjunctivae were neither pale nor icteri c. CHEST: Lungs ryan on my exam were grossly clear to auscultation and there were no rales, rhonchi o r wheezing. CARDIAC: Had a regular rate and rhythm without any rubs or gallops. ABDOMEN: Soft with normoactive bowel sounds in all 4 quadrants. There were no masses, pulsatile or otherwise. There was no rebounding, guarding or rigidity. EXTREMITIES: Were notable for the presence of anasarca. NEUROLOGIC: The patient was nonfocal. VASCULAR: No bruits. SKIN: Intact. LABORATORY STUDIES: White count is 7.6, H and H 10.3/32.1 with a platelet count of 300,000. There w ere 84% neutrophils, 8% lymphocytes, and 6% monocytes. Sodium is 138, potassium is 4.2, chloride is 104, bicarbonate 24, BUN/creatinine 80/5.3 with a glucose of 207. Calcium corrects to 9.3. Phosphor us is elevated at 6.5. IMPRESSION AND PLAN: The patient is a 46-year-old obese female (BMI 48 kg/m2) with type 2 diabetes m ellitus that is insulin-dependent and uncontrolled, dyslipidemia, hypertension, cardiovascular diseas e with history of 3-vessel coronary artery bypass graft, recent abnormal stress test with ejection fr action of 27%. diabetic nephropathy, obstructive sleep apnea on BiPAP, chronic obstructive pulm onary disease, chronic left foot ulceration, admitted with sudden onset of shortness of breath second ayaan to chronic obstructive pulmonary disease exacerbation, as well as heart failure with reduced ejec tion fraction. She is status post cardiac catheterization yesterday where she underwent PTCA and dima cement of drug-eluting stent. 1. Thus far today, the patient has not demonstrated any evidence of contrast nephropathy; however, c ontrast nephropathy can take up to 48 or 72 hours to develop and we will need to recheck the patient' s labs again tomorrow, Wednesday, as well as Wednesday. 2. The patient continues to have a good urine output and is diuresing in response to furosemide infu robert and we will continue this at 10 mg per hour. She has a negative fluid balance. 3. For hyperphosphatemia, we will continue Renagel 800 mg 3 tablets orally with each meal. Addition ally, she is on a renal diet, which will be limiting her phosphorus intake anyways. 4. We can discontinue the patient's Mucomyst today. 5. Continue antiplatelet therapy with aspirin, as well as clopidogrel. Additionally, patient remain s on atorvastatin as well as metoprolol for known coronary artery disease and decreased left ventricu lar systolic function. 6. For deep venous thrombosis prophylaxis in this obese female with nephrotic syndrome, both of whic h are risk factors, continue heparin 5000 units subcutaneously every 8 hours. 7. For her decreased left ventricular systolic function, continue hydralazine for afterload reductio n. 8. The patient will require creation of an AV fistula since she is inevitably headed towards dialysi s. I will discuss with cardiology when we can proceed with this. I also told the patient's sister, as well as her mother, as well as the patient about the need for an AV fistula. 9. I believe that much of the patient's symptomatology is also triggered by her cat, resulting in ch ronic obstructive pulmonary disease exacerbation. At present, the patient is off all corticosteroids . 10. For gastrointestinal prophylaxis for now, continue famotidine 20 mg orally daily. 11. The patient has requested physical therapy and we will ask physical therapy to see the patient t omorrow. Review of systems, past medical history, social history and family history have all been reviewed and there are no new changes. Gary Flores MD cc: [phone] TT: 11/05/2016 23:36:13 Confirmation # [id number] Dictation # [id number]
[2016-11-06] MEDS: Insulin Lispro (humaLOG) MEDIUM Coverage SC SCH ×4 (08:20→21:51)
[2016-11-06 08:30] LABS: CALCIUM 8.2 mg/dL (8.4-10.5); MAGNESIUM 1.8 mg/dL (1.7-2.2); PHOSPHOROUS 6.2 mg/dL (2.5-4.5); TOTAL PROTEIN 5.7 g/dL (5.8-8.3)
[2016-11-06 08:31] LABS: ALB/GLOB RATIO 0.8 (1.1-1.8); BILIRUBIN,TOTAL 0.4 mg/dL (0.2-1.3)
[2016-11-06] MEDS: Insulin Detemir 100 units/ml Vial (Levemir) SC SCH ×2 (09:52→21:51)
[2016-11-06] MEDS: POLYETHYLENE GLYCOL 3350 17 GM/Dose PACKET PO SCH ×2 (10:03→18:00)
--- NOTE | 2016-11-06 10:58 | PN ---
DATE: 11/06/2016 The patient is ambulating without chest pain. She is minimally short of breath. PHYSICAL EXAMINATION: VITAL SIGNS: Blood pressure is 143/86, the heart rate is in the 70s. NECK: Negative JVD. LUNGS: Decreased breath sounds. HEART: Reveals S1, S2. EXTREMITIES: Without edema. LABORATORIES: Hemoglobin is 9.6. Chemistries: Creatinine is up to 5.5 from 5.3 preprocedure. Gluc ose is 156. IMPRESSION: 1. Status post percutaneous transluminal coronary angioplasty and stent of a left anterior descendin g through a bypass graft. 2. Baseline renal insufficiency. 3. Continue to observe to rule out contrast nephropathy. 4. Diabetes mellitus. 5. History of coronary artery bypass surgery. PLAN: Given these findings, I have encouraged the patient to continue ambulating. I have discussed with her about her need for changes in diet. We will continue her aspirin and Plavix. We will check her creatinine in the morning. Austin Markham MD cc: [id number] TT: 11/06/2016 10:57:15 Confirmation # [id number] Dictation # [id number]
--- NOTE | 2016-11-06 13:43 | CP.PCM.PN ---
<Wade Alvarez - Last Filed: 11/06/16 21:52> Subjective - Date & Time of Evaluation Date of Evaluation: 11/06/16 Time of Evaluation: 07:20 - Subjective Subjective: 46 year old female with past medical history notable for DM, HLD, HTN, CAD s/p CABG, chronic renal insufficiency presenting to the ED for acute onset of shortness of breath, chest pain and difficulty breathing. Pt. is s/p cardiac cath with 1 stent placed in the LAD. Today she is resting comfortably and complains of slight nausea and back pain. She denies headaches, chest pain, difficulty breathing, nausea, vomiting or diarrhea. Objective - Vital Signs/Intake and Output Vital Signs (last 24 hours): Temp Pulse Resp BP Pulse Ox 97.8 F 75 20 129/71 100 11/06/16 11:37 11/06/16 13:04 11/06/16 11:37 11/06/16 13:04 11/06/16 05:34 Intake and Output: 11/06/16 11/06/16 06:59 18:59 Intake Total 985 Output Total 350 Balance 635 - Medications Medications: Current Medications Acetaminophen (Tylenol 325mg Tab) 650 mg PO Q6H PRN PRN Reason: Fever >100.4 F Last Admin: 11/06/16 05:08 Dose: 650 mg Albuterol/Ipratropium (Duoneb 3 Mg/0.5 Mg (3 Ml) Ud) 3 ml IH [id number] [facility] Last Admin: 11/06/16 07:51 Dose: 3 ml Aspirin (Ecotrin) 81 mg PO DAILY [facility] Last Admin: 11/06/16 09:57 Dose: 81 mg Atorvastatin Calcium (Lipitor) 40 mg PO DIN [facility] Last Admin: 11/05/16 16:26 Dose: 40 mg Cholecalciferol (Vitamin D) 2,000 iu PO DAILY [facility] Last Admin: 11/06/16 09:54 Dose: 2,000 iu Clopidogrel Bisulfate (Plavix) 75 mg PO DAILY [facility] Last Admin: 11/06/16 09:53 Dose: 75 mg Docusate Sodium (Colace) 100 mg PO BID [facility] Last Admin: 11/06/16 09:53 Dose: 100 mg Famotidine (Pepcid) 20 mg PO DAILY [facility] Last Admin: 11/06/16 09:57 Dose: 20 mg Gabapentin (Neurontin) 300 mg PO DAILY [facility] PRN Reason: Protocol Last Admin: 11/06/16 09:57 Dose: 300 mg Heparin Sodium (Porcine) (Heparin) 5,000 units SC Q8 [facility] PRN Reason: Protocol Last Admin: 11/06/16 13:03 Dose: 5,000 units Hydralazine HCl (Apresoline) 25 mg PO TID [facility] Last Admin: 11/06/16 13:04 Dose: 25 mg Furosemide 240 mg/ Dextrose 250 mls @ 10.41 mls/hr IV .Q24H KELSI; 10 MG/HR PRN Reason: Protocol Last Admin: 11/06/16 04:58 Dose: 10.41 mls/hr Insulin Detemir (Levemir) 25 unit SC Q12 [facility] Last Admin: 11/06/16 09:52 Dose: 25 unit Insulin Human Lispro (Humalog Med) 0 units SC ACHS [facility] PRN Reason: Protocol Last Admin: 11/06/16 11:31 Dose: 1 units Metoprolol Tartrate (Lopressor) 25 mg PO BID [facility] Last Admin: 11/06/16 09:53 Dose: 25 mg Ondansetron HCl (Zofran Inj) 4 mg IVP Q4H PRN PRN Reason: Nausea/Vomiting Last Admin: 11/06/16 07:35 Dose: 4 mg Polyethylene Glycol (Miralax) 17 gm PO BID [facility] Last Admin: 11/06/16 10:03 Dose: Not Given Sevelamer HCl (Renagel) 2,400 mg PO WM [facility] Last Admin: 11/06/16 11:32 Dose: 2,400 mg Sodium Chloride ([place] Nasal [place]) 0 ml NS Q6H PRN PRN Reason: Nasal congestion Last Admin: 11/03/16 22:47 Dose: 2 sprays - Labs Labs: 11/06/16 07:00 11/06/16 07:00 APTT 23.7 Seconds (23.7-30.8) 11/04/16 06:35 - Constitutional Appears: Non-toxic, No Acute Distress - Head Exam Head Exam: ATRAUMATIC - Eye Exam Eye Exam: EOMI - ENT Exam ENT Exam: Mucous Membranes Moist - Neck Exam Neck Exam: Full ROM. absent: Lymphadenopathy - Respiratory Exam Respiratory Exam: Clear to Ausculation Bilateral, NORMAL BREATHING PATTERN - Cardiovascular Exam Cardiovascular Exam: REGULAR RHYTHM, RRR, +S1, +S2. absent: JVD - GI/Abdominal Exam GI & Abdominal Exam: Soft, Normal Bowel Sounds - Extremities Exam Extremities Exam: Full ROM, Joint Swelling, Pedal Edema - Back Exam Back Exam: absent: rash noted - Neurological Exam Neurological Exam: Alert, Awake, Oriented x3 - Psychiatric Exam Psychiatric exam: Normal Affect, Normal Mood - Skin Skin Exam: Dry, Intact, Pallor, Warm Assessment and Plan - Assessment and Plan (Free Text) Assessment: 46F, pmh of CHF, HTN, HLD, CKD presented to the ED for acute onset of shortness of breath and chest pain likely secondary to COPD exacerbation vs CHF exacerbation vs systolic dysfunction. S/P Cardiac Cath Day #2, monitoring renal function and setup dialysis if needed. Plan: Chest pain possibly 2/2 COPD exacerbation vs CHF exacerbation vs systolic dysfunction.: Troponin x 1 - 0.05 Pro-BNP [id number] Initial CXR - minimal bibasilar infiltrates and small effusions, no changes from previous CXR on last admission (please see full report) Repeat CXR - no interval changes (please see full report) Lower Extemity venous ultrasound - negative for DVTs, limited study (please see full report) Cardiology, Dr. Cintron, consulted. Help appreciated. -Cardiology performed Cardiac Cath 11/04 and placed one stent in the LAD please see full report, will monitor Cr. for 48hrs, pt. on Aspirin and Plavix, encouraged ambulating End-Stage Renal Disease: Bun/Cr - 81/5.5 Nephrology, Dr. Flores, consulted. Help appreciated. -resume furosemide at 10mg/hr, recheck renal function again on Wednesday -will need AV fistula and will discuss with cardio when it could be done given that she is on dual platelet therapy COPD Exacerbation: Afebrile, nontachycardic, no leukocytosis Blood cultures negative after 5 days 10/28 Duonebs q6h kelsi Hyperphosphatemia: Renagel 2400 mg po wm per renal - avoid calcium acetate or any calcium binder Right Breast Pain: Mammography - no mmammographic or sonographic evidence of malignancy, does not have dense breasts continue annual screening mammorgraphy, as per ACR guidelines please see full report for details Coronary Artery Disease: Plavix 75 mg po qd Lipitor 40 mg po din Aspirin 81 mg po qd Lopressor 25 mg po bid HTN: Lopressor 25 mg po bid Hydralazine 25 mg po tid Diabetes Mellitus: Glucose -200s Accuchecks Humalog sliding scale Levemir 14 units sc bid Peripheral neuropathy: Neurontin 300 mg po qd Anemia: H/H: 9.8/30.6 Prophylactic Measures: GI: Pepcid 20 mg po daily DVT: hperarin 5000 units sc q8h Vitamin D 2000 units iu po qd Tylenol 650 mg po q6h prn for fever > 100.4 <Dany Wiley - Last Filed: 11/07/16 16:13> Objective - Vital Signs/Intake and Output Vital Signs (last 24 hours): Temp Pulse Resp BP Pulse Ox 98.4 F 76 2 L 133/71 99 11/07/16 12:00 11/07/16 12:00 11/07/16 12:00 11/07/16 15:03 11/07/16 06:00 Intake and Output: 11/07/16 11/07/16 06:59 18:59 Intake Total 570 Output Total 800 Balance -230 - Medications Medications: Current Medications Acetaminophen (Tylenol 325mg Tab) 650 mg PO Q6H PRN PRN Reason: Fever >100.4 F Last Admin: 11/06/16 18:52 Dose: 650 mg Albuterol/Ipratropium (Duoneb 3 Mg/0.5 Mg (3 Ml) Ud) 3 ml IH [id number] [facility] Last Admin: 11/07/16 14:04 Dose: Not Given Aspirin (Ecotrin) 81 mg PO DAILY [facility] Last Admin: 11/07/16 09:29 Dose: 81 mg Atorvastatin Calcium (Lipitor) 40 mg PO DIN [facility] Last Admin: 11/06/16 17:16 Dose: 40 mg Cholecalciferol (Vitamin D) 2,000 iu PO DAILY [facility] Last Admin: 11/07/16 09:30 Dose: 2,000 iu Clopidogrel Bisulfate (Plavix) 75 mg PO DAILY [facility] Last Admin: 11/07/16 10:00 Dose: 75 mg Docusate Sodium (Colace) 100 mg PO BID [facility] Last Admin: 11/07/16 09:29 Dose: 100 mg Famotidine (Pepcid) 20 mg PO DAILY [facility] Last Admin: 11/07/16 09:30 Dose: 20 mg Gabapentin (Neurontin) 300 mg PO DAILY [facility] PRN Reason: Protocol Last Admin: 11/07/16 09:30 Dose: 300 mg Heparin Sodium (Porcine) (Heparin) 5,000 units SC Q8 [facility] PRN Reason: Protocol Last Admin: 11/07/16 15:03 Dose: 5,000 units Hydralazine HCl (Apresoline) 25 mg PO TID [facility] Last Admin: 11/07/16 15:03 Dose: 25 mg Furosemide 240 mg/ Dextrose 250 mls @ 10.41 mls/hr IV .Q24H [facility]; 10 MG/HR PRN Reason: Protocol Last Admin: 11/07/16 04:30 Dose: 10.41 mls/hr Insulin Detemir (Levemir) 28 unit SC Q12 [facility] Last Admin: 11/07/16 09:29 Dose: Not Given Insulin Human Lispro (Humalog Med) 0 units SC ACHS [facility] PRN Reason: Protocol Last Admin: 11/07/16 12:06 Dose: 1 units Metoprolol Tartrate (Lopressor) 25 mg PO BID [facility] Last Admin: 11/07/16 09:41 Dose: 25 mg Morphine Sulfate (Morphine) 1 mg IVP Q4H PRN PRN Reason: Pain, moderate (4-7) Last Admin: 11/07/16 09:26 Dose: 1 mg Morphine Sulfate (Morphine) 2 mg IM Q4H PRN PRN Reason: Pain, severe (8-10) Ondansetron HCl (Zofran Inj) 4 mg IVP Q4H PRN PRN Reason: Nausea/Vomiting Last Admin: 11/06/16 07:35 Dose: 4 mg Polyethylene Glycol (Miralax) 17 gm PO BID [facility] Last Admin: 11/07/16 09:29 Dose: 17 gm Sevelamer HCl (Renagel) 2,400 mg PO WM [facility] Last Admin: 11/07/16 12:20 Dose: 2,400 mg Sodium Chloride ([place] Nasal [place]) 0 ml NS Q6H PRN PRN Reason: Nasal congestion Last Admin: 11/03/16 22:47 Dose: 2 sprays - Labs Labs: 11/07/16 06:15 11/07/16 06:15 APTT 23.7 Seconds (23.7-30.8) 11/04/16 06:35 Assessment and Plan - Assessment and Plan (Free Text) Assessment: attending note; Patient seen and examined with resident. Patient is a 46 year old female with obesity, IDDM, HTN, CAD s/p CABG, CKD secondary to nephrotic syndrome, cardiomyopathy who got admitted for evaluation of shortness of breath most likely due to copd exacerbation vs CHF exacerbation due to systolic dysfunction (ef21%). c urrently on IV Lasix drip for diuresis. status post cardiac cath and LAD stent placement by Dr. Markham. Continue aspirin and Plavix. Urine output is adequate. Creatinine is stable at 5.5. Nephrology evaluation appreciated. diabetes; fingerstick is improving. Needs outpatient AV fistula placement in the future. DVT/GI prophylaxis upon discharge patient will follow up with PMD of choice. Attending/Attestation - Attestation I have personally seen and examined this patient.: Yes I have fully participated in the care of the patient.: Yes I have reviewed all pertinent clinical information, including history, physical exam and plan: Yes
[2016-11-06] MEDS ORDERED: Morphine 2 mg/ml ISec IVP STA (20:27)
[2016-11-07] MEDS: Albuterol-Ipratrop 3 mg / 0.5 (3 ml) UD IH SCH ×4 (02:04→19:39)
[2016-11-07] MEDS ORDERED: Morphine 2 mg/ml ISec IVP STA ×2 (04:29→05:10)
[2016-11-07] MEDS: FUROSEMIDE IV SCH (04:30)
[2016-11-07] MEDS: WATER IV SCH (04:30)
[2016-11-07] MEDS: DEXTROSE 5% IV SCH (04:30)
[2016-11-07] MEDS ORDERED: Morphine 2 mg/ml ISec IM PRN (05:05)
--- NOTE | 2016-11-07 05:15 | CP.PCM.PN ---
<Wilda Escobar - Last Filed: 11/07/16 05:24> Subjective - Date & Time of Evaluation Date of Evaluation: 11/07/16 Time of Evaluation: 05:13 - Subjective Subjective: Night call Pt has sudden 9/10 sharp pain on mid lower back L4-5 that radiates to groin b/l and lateral thigh. Morphine 0.5 given at 9pm. Pt couldn't sleep due to pain and required 1 mg morphine at 4:30am. No saddle anesthesia. No B&B incontinence. Pt states that she never has this pain before. It started since cath 2 days ago and worsened today. Rozet that both leg shaky Objective - Vital Signs/Intake and Output Vital Signs (last 24 hours): Temp Pulse Resp BP Pulse Ox 98.0 F 73 20 139/53 L 100 11/07/16 00:01 11/07/16 02:00 11/07/16 00:01 11/07/16 04:30 11/07/16 00:01 Intake and Output: 11/06/16 11/07/16 18:59 06:59 Intake Total 180 Output Total 300 Balance -120 - Medications Medications: Current Medications Acetaminophen (Tylenol 325mg Tab) 650 mg PO Q6H PRN PRN Reason: Fever >100.4 F Last Admin: 11/06/16 18:52 Dose: 650 mg Albuterol/Ipratropium (Duoneb 3 Mg/0.5 Mg (3 Ml) Ud) 3 ml IH H2IDEEP [facility] Last Admin: 11/07/16 02:04 Dose: 3 ml Aspirin (Ecotrin) 81 mg PO DAILY [facility] Last Admin: 11/06/16 09:57 Dose: 81 mg Atorvastatin Calcium (Lipitor) 40 mg PO DIN [facility] Last Admin: 11/06/16 17:16 Dose: 40 mg Cholecalciferol (Vitamin D) 2,000 iu PO DAILY [facility] Last Admin: 11/06/16 09:54 Dose: 2,000 iu Clopidogrel Bisulfate (Plavix) 75 mg PO DAILY [facility] Last Admin: 11/06/16 09:53 Dose: 75 mg Docusate Sodium (Colace) 100 mg PO BID [facility] Last Admin: 11/06/16 17:57 Dose: 100 mg Famotidine (Pepcid) 20 mg PO DAILY [facility] Last Admin: 03/24/17 09:57 Dose: 20 mg Gabapentin (Neurontin) 300 mg PO DAILY [facility] PRN Reason: Protocol Last Admin: 11/06/16 09:57 Dose: 300 mg Heparin Sodium (Porcine) (Heparin) 5,000 units SC Q8 [facility] PRN Reason: Protocol Last Admin: 11/07/16 05:01 Dose: 5,000 units Hydralazine HCl (Apresoline) 25 mg PO TID [facility] Last Admin: 11/06/16 17:56 Dose: 25 mg Furosemide 240 mg/ Dextrose 250 mls @ 10.41 mls/hr IV .Q24H [facility]; 10 MG/HR PRN Reason: Protocol Last Admin: 11/07/16 04:30 Dose: 10.41 mls/hr Insulin Detemir (Levemir) 28 unit SC Q12 [facility] Last Admin: 11/06/16 21:51 Dose: 28 unit Insulin Human Lispro (Humalog Med) 0 units SC ACHS [facility] PRN Reason: Protocol Last Admin: 11/06/16 21:51 Dose: Not Given Metoprolol Tartrate (Lopressor) 25 mg PO BID [facility] Last Admin: 11/06/16 17:56 Dose: 25 mg Morphine Sulfate (Morphine) 1 mg IVP Q4H PRN PRN Reason: Pain, moderate (4-7) Morphine Sulfate (Morphine) 2 mg IM Q4H PRN PRN Reason: Pain, severe (8-10) Ondansetron HCl (Zofran Inj) 4 mg IVP Q4H PRN PRN Reason: Nausea/Vomiting Last Admin: 11/06/16 07:35 Dose: 4 mg Polyethylene Glycol (Miralax) 17 gm PO BID [facility] Last Admin: 11/06/16 18:00 Dose: Not Given Sevelamer HCl (Renagel) 2,400 mg PO WM [facility] Last Admin: 11/06/16 17:15 Dose: 2,400 mg Sodium Chloride ([place] Nasal [place]) 0 ml NS Q6H PRN PRN Reason: Nasal congestion Last Admin: 11/03/16 22:47 Dose: 2 sprays - Labs Labs: 11/06/16 07:00 11/06/16 07:00 APTT 23.7 Seconds (23.7-30.8) 11/04/16 06:35 - Constitutional Appears: No Acute Distress - Head Exam Head Exam: ATRAUMATIC, NORMOCEPHALIC - Eye Exam Eye Exam: EOMI, Normal appearance, PERRL Pupil Exam: NORMAL ACCOMODATION - ENT Exam ENT Exam: Mucous Membranes Moist - Respiratory Exam Respiratory Exam: Clear to Ausculation Bilateral, NORMAL BREATHING PATTERN - Cardiovascular Exam Cardiovascular Exam: REGULAR RHYTHM, +S1, +S2. absent: Murmur - GI/Abdominal Exam GI & Abdominal Exam: Soft, Normal Bowel Sounds. absent: Tenderness - Back Exam Additional comments: Pain localizes L4-5. Groin pain b/l. pain radiating to lateral thigh. 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 , possibly from abdominal pannus traction/compression - Physical therapy already consulted - morphine 1q4 for moderate pain; 2q4 for severe pain - CT abdomen and pelvis to r/o retroperitoneal hematoma - U/S artery b/l leg to r/o arterial hematoma or nerve entrapment <Demian Montes - Last Filed: 11/07/16 05:32> Objective - Vital Signs/Intake and Output Vital Signs (last 24 hours): Temp Pulse Resp BP Pulse Ox 98.0 F 73 20 139/53 L 100 11/07/16 00:01 11/07/16 02:00 11/07/16 00:01 11/07/16 04:30 11/07/16 00:01 Intake and Output: 11/06/16 11/07/16 18:59 06:59 Intake Total 180 Output Total 300 Balance -120 - Medications Medications: Current Medications Acetaminophen (Tylenol 325mg Tab) 650 mg PO Q6H PRN PRN Reason: Fever >100.4 F Last Admin: 11/06/16 18:52 Dose: 650 mg Albuterol/Ipratropium (Duoneb 3 Mg/0.5 Mg (3 Ml) Ud) 3 ml IH [id number] [facility] Last Admin: 11/07/16 02:04 Dose: 3 ml Aspirin (Ecotrin) 81 mg PO DAILY [facility] Last Admin: 11/06/16 09:57 Dose: 81 mg Atorvastatin Calcium (Lipitor) 40 mg PO DIN [facility] Last Admin: 11/06/16 17:16 Dose: 40 mg Cholecalciferol (Vitamin D) 2,000 iu PO DAILY [facility] Last Admin: 11/06/16 09:54 Dose: 2,000 iu Clopidogrel Bisulfate (Plavix) 75 mg PO DAILY [facility] Last Admin: 11/06/16 09:53 Dose: 75 mg Docusate Sodium (Colace) 100 mg PO BID [facility] Last Admin: 11/06/16 17:57 Dose: 100 mg Famotidine (Pepcid) 20 mg PO DAILY [facility] Last Admin: 11/06/16 09:57 Dose: 20 mg Gabapentin (Neurontin) 300 mg PO DAILY [facility] PRN Reason: Protocol Last Admin: 11/06/16 09:57 Dose: 300 mg Heparin Sodium (Porcine) (Heparin) 5,000 units SC Q8 [facility] PRN Reason: Protocol Last Admin: 11/07/16 05:01 Dose: 5,000 units Hydralazine HCl (Apresoline) 25 mg PO TID [facility] Last Admin: 11/06/16 17:56 Dose: 25 mg Furosemide 240 mg/ Dextrose 250 mls @ 10.41 mls/hr IV .Q24H [facility]; 10 MG/HR PRN Reason: Protocol Last Admin: 11/07/16 04:30 Dose: 10.41 mls/hr Insulin Detemir (Levemir) 28 unit SC Q12 [facility] Last Admin: 11/06/16 21:51 Dose: 28 unit Insulin Human Lispro (Humalog Med) 0 units SC ACHS [facility] PRN Reason: Protocol Last Admin: 11/06/16 21:51 Dose: Not Given Metoprolol Tartrate (Lopressor) 25 mg PO BID [facility] Last Admin: 11/06/16 17:56 Dose: 25 mg Morphine Sulfate (Morphine) 1 mg IVP Q4H PRN PRN Reason: Pain, moderate (4-7) Morphine Sulfate (Morphine) 2 mg IM Q4H PRN PRN Reason: Pain, severe (8-10) Ondansetron HCl (Zofran Inj) 4 mg IVP Q4H PRN PRN Reason: Nausea/Vomiting Last Admin: 11/06/16 07:35 Dose: 4 mg Polyethylene Glycol (Miralax) 17 gm PO BID [facility] Last Admin: 11/06/16 18:00 Dose: Not Given Sevelamer HCl (Renagel) 2,400 mg PO WM [facility] Last Admin: 11/06/16 17:15 Dose: 2,400 mg Sodium Chloride ([place] Nasal [place]) 0 ml NS Q6H PRN PRN Reason: Nasal congestion Last Admin: 11/03/16 22:47 Dose: 2 sprays - Labs Labs: 11/06/16 07:00 11/06/16 07:00 APTT 23.7 Seconds (23.7-30.8) 11/04/16 06:35 Attending/Attestation - Attestation I have personally seen and examined this patient.: Yes I have fully participated in the care of the patient.: Yes I have reviewed all pertinent clinical information, including history, physical exam and plan: Yes
[2016-11-07 06:49] LABS: ADD MANUAL DIFF? NO
[2016-11-07 07:14] LABS: EOS # 0.2 (0.0-0.7); EOS % 3.2 % (1.5-5.0); GRAN # 5.59 (1.4-6.5); GRAN % 82.3 % (50.0-68.0); HEMATOCRIT 28.8 % (36.0-48.0); LYMPH # 0.4 (1.2-3.4); MEAN CELL VOLUME 90.3 fL (80.0-105.0); MEAN CORPUSCULAR HEMOGLOBIN 29.5 pg (25.0-35.0); MEAN CORPUSCULAR HGB CONC 32.6 g/dl (31.0-37.0); MEAN PLATELET VOLUME 10.1 fl (7.0-11.0); MONO # 0.6 (0.1-0.6); MONO % 8.5 % (1.0-6.0); PLATELET COUNT 201 10^3/uL (120.0-450.0); RED CELL DISTRIBUTION WIDTH 13.7 % (11.5-14.5); WHITE BLOOD COUNT 6.8 10^3/ul (4.5-11.0)
[2016-11-07 07:17] LABS: ALB/GLOB RATIO 0.9 (1.1-1.8); BILIRUBIN,TOTAL 0.3 mg/dL (0.2-1.3); CALCIUM 8.2 mg/dL (8.4-10.5); MAGNESIUM 1.9 mg/dL (1.7-2.2); PHOSPHOROUS 5.8 mg/dL (2.5-4.5); TOTAL PROTEIN 5.7 g/dL (5.8-8.3)
--- NOTE | 2016-11-07 08:13 | PN ---
DATE: 11/07/2016 SUBJECTIVE: The patient is comfortable without shortness of breath, able to ambulate with physical t herapy yesterday. PHYSICAL EXAMINATION: VITAL SIGNS: Blood pressure is 129/56, the heart rate is in the 80s. NECK: Negative JVD. LUNGS: Without rales. HEART: Reveals S1, S2. EXTREMITIES: Without edema. LABORATORIES: Hemoglobin is 9.4. Chemistries: The creatinine is 5.6 from a baseline of 5.3 before cardiac catheterization and angioplasty. IMPRESSION: 1. Stable angina. 2. Coronary artery disease. 3. Status post percutaneous transluminal coronary angioplasty and stent of a left anterior descendin g with a drug-eluting stent. 4. Diabetes mellitus. 5. Renal insufficiency. 6. Obesity. PLAN: Given these findings, patient is doing well. We will continue to monitor the creatinine. Austin Markham MD cc: [id number] TT: 11/07/2016 08:12:23 Confirmation # [id number] Dictation # [id number]
[2016-11-07] MEDS: Insulin Lispro (humaLOG) MEDIUM Coverage SC SCH ×4 (08:39→22:45)
--- NOTE | 2016-11-07 09:15 | CP.PCM.PN ---
<Wade Alvarez - Last Filed: 11/07/16 22:58> Subjective - Date & Time of Evaluation Date of Evaluation: 11/07/16 Time of Evaluation: 09:10 - Subjective Subjective: 46 year old female with past medical history notable for DM, HLD, HTN, CAD s/p CABG, chronic renal insufficiency presenting to the ED for acute onset of shortness of breath, chest pain and difficulty breathing. Pt. is s/p day #3 cardiac cath with 1 stent placed in the LAD. Overnight, she complained of 9/10 sharp lower abdominal pain. CT abd/pelvis was orderd and morphine was given which relieved her pain. Today, complains of back pain that radiated to her groin area. She denies headaches, chest pain, difficulty breathing, nausea, vomiting or diarrhea. Objective - Vital Signs/Intake and Output Vital Signs (last 24 hours): Temp Pulse Resp BP Pulse Ox 98.2 F 84 20 129/56 L 99 11/07/16 06:00 11/07/16 06:00 11/07/16 06:00 11/07/16 06:00 11/07/16 06:00 Intake and Output: 11/07/16 11/07/16 06:59 18:59 Intake Total 570 Output Total 800 Balance -230 - Medications Medications: Current Medications Acetaminophen (Tylenol 325mg Tab) 650 mg PO Q6H PRN PRN Reason: Fever >100.4 F Last Admin: 11/06/16 18:52 Dose: 650 mg Albuterol/Ipratropium (Duoneb 3 Mg/0.5 Mg (3 Ml) Ud) 3 ml IH [id number] [facility] Last Admin: 11/07/16 07:36 Dose: Not Given Aspirin (Ecotrin) 81 mg PO DAILY [facility] Last Admin: 11/06/16 09:57 Dose: 81 mg Atorvastatin Calcium (Lipitor) 40 mg PO DIN [facility] Last Admin: 11/06/16 17:16 Dose: 40 mg Cholecalciferol (Vitamin D) 2,000 iu PO DAILY [facility] Last Admin: 11/06/16 09:54 Dose: 2,000 iu Clopidogrel Bisulfate (Plavix) 75 mg PO DAILY [facility] Last Admin: 11/06/16 09:53 Dose: 75 mg Docusate Sodium (Colace) 100 mg PO BID [facility] Last Admin: 11/06/16 17:57 Dose: 100 mg Famotidine (Pepcid) 20 mg PO DAILY [facility] Last Admin: 11/06/16 09:57 Dose: 20 mg Gabapentin (Neurontin) 300 mg PO DAILY [facility] PRN Reason: Protocol Last Admin: 11/06/16 09:57 Dose: 300 mg Heparin Sodium (Porcine) (Heparin) 5,000 units SC Q8 [facility] PRN Reason: Protocol Last Admin: 11/07/16 05:01 Dose: 5,000 units Hydralazine HCl (Apresoline) 25 mg PO TID [facility] Last Admin: 11/06/16 17:56 Dose: 25 mg Furosemide 240 mg/ Dextrose 250 mls @ 10.41 mls/hr IV .Q24H KELSI; 10 MG/HR PRN Reason: Protocol Last Admin: 11/07/16 04:30 Dose: 10.41 mls/hr Insulin Detemir (Levemir) 28 unit SC Q12 [facility] Last Admin: 11/06/16 21:51 Dose: 28 unit Insulin Human Lispro (Humalog Med) 0 units SC ACHS [facility] PRN Reason: Protocol Last Admin: 11/07/16 08:39 Dose: Not Given Metoprolol Tartrate (Lopressor) 25 mg PO BID [facility] Last Admin: 11/06/16 17:56 Dose: 25 mg Morphine Sulfate (Morphine) 1 mg IVP Q4H PRN PRN Reason: Pain, moderate (4-7) Morphine Sulfate (Morphine) 2 mg IM Q4H PRN PRN Reason: Pain, severe (8-10) Ondansetron HCl (Zofran Inj) 4 mg IVP Q4H PRN PRN Reason: Nausea/Vomiting Last Admin: 11/06/16 07:35 Dose: 4 mg Polyethylene Glycol (Miralax) 17 gm PO BID [facility] Last Admin: 11/06/16 18:00 Dose: Not Given Sevelamer HCl (Renagel) 2,400 mg PO WM [facility] Last Admin: 11/07/16 08:33 Dose: 2,400 mg Sodium Chloride ([place] Nasal [place]) 0 ml NS Q6H PRN PRN Reason: Nasal congestion Last Admin: 11/03/16 22:47 Dose: 2 sprays - Labs Labs: 11/07/16 06:15 11/07/16 06:15 APTT 23.7 Seconds (23.7-30.8) 11/04/16 06:35 - Constitutional Appears: Non-toxic - Head Exam Head Exam: ATRAUMATIC, NORMOCEPHALIC - Eye Exam Eye Exam: EOMI - ENT Exam ENT Exam: Mucous Membranes Moist - Respiratory Exam Respiratory Exam: Clear to Ausculation Bilateral, NORMAL BREATHING PATTERN - Cardiovascular Exam Cardiovascular Exam: REGULAR RHYTHM, +S1, +S2 - GI/Abdominal Exam GI & Abdominal Exam: Soft, Tenderness, Normal Bowel Sounds - Extremities Exam Extremities Exam: Full ROM, Joint Swelling, Pedal Edema Additional comments: swelling has decreased markedly from admission - Back Exam Back Exam: absent: rash noted - Neurological Exam Neurological Exam: Awake, Normal Gait - Psychiatric Exam Psychiatric exam: Normal Affect, Normal Mood - Skin Skin Exam: Dry, Intact, Normal Color, Warm Assessment and Plan - Assessment and Plan (Free Text) Assessment: 46F, pmh of CHF, HTN, HLD, CKD s/p Cardiac Cath Day #3, monitoring renal function and setup dialysis if needed. Plan: Chest pain possibly 2/2 COPD exacerbation vs CHF exacerbation vs systolic dysfunction.: Troponin x 1 - 0.05 Pro-BNP 17687 Initial CXR - minimal bibasilar infiltrates and small effusions, no changes from previous CXR on last admission (please see full report) Repeat CXR - no interval changes (please see full report) Lower Extemity venous ultrasound - negative for DVTs, limited study (please see full report) Cardiology, Dr. Cintron, consulted. Help appreciated. -Cardiology performed Cardiac Cath 11/04 and placed one stent in the LAD please see full report, will monitor Cr. for 48hrs, pt. on Aspirin and Plavix, encouraged ambulating End-Stage Renal Disease: Bun/Cr - 83/5.6, slightly increased Nephrology, Dr. Flores, consulted. Help appreciated. -resume furosemide at 10mg/hr, recheck renal function again on Wednesday -will need AV fistula and will discuss with cardio when it could be done given that she is on dual platelet therapy COPD Exacerbation: Afebrile, nontachycardic, no leukocytosis Blood cultures negative after 5 days 10/28 Duonebs q6h kelsi Hyperphosphatemia: Renagel 2400 mg po wm per renal - avoid calcium acetate or any calcium binder Right Breast Pain: Mammography - no mmammographic or sonographic evidence of malignancy, does not have dense breasts continue annual screening mammorgraphy, as per ACR guidelines please see full report for details Coronary Artery Disease: Plavix 75 mg po qd Lipitor 40 mg po din Aspirin 81 mg po qd Lopressor 25 mg po bid HTN: controlled Lopressor 25 mg po bid Hydralazine 25 mg po tid Diabetes Mellitus: Glucose - <200 Accuchecks Humalog sliding scale Levemir 14 units sc bid Peripheral neuropathy: Neurontin 300 mg po qd Abdominal Pain: CT Abd/Pelvis - mod BL effusions and severe diffuse anasarca - 2mm nonobstructing stone in the left interpolar region - please see full report morphine prn for pain Anemia: H/H: 9.4/28.8 Prophylactic Measures: GI: Pepcid 20 mg po daily DVT: hperarin 5000 units sc q8h Vitamin D 2000 units iu po qd Tylenol 650 mg po q6h prn for fever > 100.4 <Dany Wiley - Last Filed: 11/08/16 11:26> Objective - Vital Signs/Intake and Output Vital Signs (last 24 hours): Temp Pulse Resp BP Pulse Ox 98.2 F 81 18 127/61 95 11/08/16 06:00 11/08/16 06:00 11/08/16 06:00 11/08/16 09:41 11/08/16 06:00 Intake and Output: 11/08/16 11/08/16 06:59 18:59 Intake Total 480 Output Total 600 Balance -120 - Medications Medications: Current Medications Acetaminophen (Tylenol 325mg Tab) 650 mg PO Q6H PRN PRN Reason: Fever >100.4 F Last Admin: 11/06/16 18:52 Dose: 650 mg Albuterol/Ipratropium (Duoneb 3 Mg/0.5 Mg (3 Ml) Ud) 3 ml IH [id number] [facility] Last Admin: 11/08/16 07:50 Dose: 3 ml Aspirin (Ecotrin) 81 mg PO DAILY [facility] Last Admin: 11/08/16 09:41 Dose: 81 mg Atorvastatin Calcium (Lipitor) 40 mg PO DIN [facility] Last Admin: 11/07/16 17:25 Dose: 40 mg Cholecalciferol (Vitamin D) 2,000 iu PO DAILY [facility] Last Admin: 11/08/16 09:47 Dose: 2,000 iu Clopidogrel Bisulfate (Plavix) 75 mg PO DAILY [facility] Last Admin: 11/08/16 09:46 Dose: 75 mg Docusate Sodium (Colace) 100 mg PO BID [facility] Last Admin: 11/08/16 09:41 Dose: 100 mg Famotidine (Pepcid) 20 mg PO DAILY [facility] Last Admin: 11/08/16 09:46 Dose: 20 mg Gabapentin (Neurontin) 300 mg PO DAILY [facility] PRN Reason: Protocol Last Admin: 11/08/16 09:46 Dose: 300 mg Heparin Sodium (Porcine) (Heparin) 5,000 units SC BID [facility] PRN Reason: Protocol Last Admin: 11/08/16 09:41 Dose: 5,000 units Hydralazine HCl (Apresoline) 25 mg PO TID [facility] Last Admin: 11/07/16 17:28 Dose: 25 mg Furosemide 240 mg/ Dextrose 250 mls @ 10.41 mls/hr IV .Q24H [facility]; 10 MG/HR PRN Reason: Protocol Last Admin: 11/08/16 09:41 Dose: 10.41 mls/hr Insulin Detemir (Levemir) 28 unit SC Q12 [facility] Last Admin: 11/07/16 22:45 Dose: 28 unit Insulin Human Lispro (Humalog Med) 0 units SC ACHS [facility] PRN Reason: Protocol Last Admin: 11/08/16 08:25 Dose: 1 units Metoprolol Tartrate (Lopressor) 25 mg PO BID [facility] Last Admin: 11/07/16 17:28 Dose: 25 mg Morphine Sulfate (Morphine) 1 mg IVP Q4H PRN PRN Reason: Pain, moderate (4-7) Last Admin: 11/07/16 09:26 Dose: 1 mg Morphine Sulfate (Morphine) 2 mg IM Q4H PRN PRN Reason: Pain, severe (8-10) Last Admin: 11/08/16 09:46 Dose: 2 mg Ondansetron HCl (Zofran Inj) 4 mg IVP Q4H PRN PRN Reason: Nausea/Vomiting Last Admin: 11/07/16 23:57 Dose: 4 mg Polyethylene Glycol (Miralax) 17 gm PO BID [facility] Last Admin: 11/08/16 09:45 Dose: 17 gm Sevelamer HCl (Renagel) 2,400 mg PO WM [facility] Last Admin: 11/08/16 09:46 Dose: 2,400 mg Sodium Chloride ([place] Nasal [place]) 0 ml NS Q6H PRN PRN Reason: Nasal congestion Last Admin: 11/03/16 22:47 Dose: 2 sprays - Labs Labs: 11/07/16 06:15 11/08/16 08:40 APTT 23.7 Seconds (23.7-30.8) 11/04/16 06:35 Assessment and Plan - Assessment and Plan (Free Text) Assessment: attending note; Patient seen and examined with resident. Patient is a 46 year old female with obesity, IDDM, HTN, CAD s/p CABG, CKD secondary to nephrotic syndrome, cardiomyopathy who got admitted for evaluation of shortness of breath most likely due to CHF exacerbation due to systolic dysfunction (ef21%). currently on IV Lasix drip for diuresis. status post cardiac cath and LAD stent placement by Dr. Markham. Continue aspirin and Plavix. Urine output is adequate. Creatinine is 5.6 today. Nephrology evaluation appreciated. Diabetes and hypertension is better controlled. Chronic anemia; secondary to CKD. stable. Needs outpatient AV fistula placement in the future. DVT/GI prophylaxis upon discharge patient will follow up with PMD of choice. Attending/Attestation - Attestation I have personally seen and examined this patient.: Yes I have fully participated in the care of the patient.: Yes I have reviewed all pertinent clinical information, including history, physical exam and plan: Yes
[2016-11-07] MEDS: Morphine 2 mg/ml ISec IVP PRN (09:26)
[2016-11-07] MEDS: POLYETHYLENE GLYCOL 3350 17 GM/Dose PACKET PO SCH ×2 (09:29→19:00)
[2016-11-07] MEDS: Insulin Detemir 100 units/ml Vial (Levemir) SC SCH ×2 (09:29→22:45)
--- NOTE | 2016-11-07 11:55 | CT ---
PROCEDURE: CT Abdomen and Pelvis without intravenous contrast HISTORY: Sudden groin pain b/l and lower back pain s/p cath COMPARISON: 04/01/2016. TECHNIQUE: Helical CT scan of the abdomen and pelvis was performed without administration of oral or intravenous contrast. Coronal and sagittal reformatted images were obtained. Radiation dose: Total exam DLP = 1549.45 MGy-cm. FINDINGS: LOWER THORAX: There are moderate bilateral pleural effusions and confluent airspace disease in the right lower lobe. There is subsegmental atelectasis in the right middle lobe and lingula and mild compressive atelectasis in the left lower lobe. LIVER: There is mild hepatomegaly. GALLBLADDER AND BILE DUCTS: There is probable high density sludge within the gallbladder. PANCREAS: Grossly normal in appearance without ductal dilatation or calcifications. SPLEEN: There is mild splenomegaly. ADRENALS: Normal in size without discrete nodule. KIDNEYS AND URETERS: Both kidneys are normal in size without hydronephrosis. There is a 2 mm nonobstructing stone in the left interpolar region. VASCULATURE: There are atherosclerotic aortoiliac calcifications. No aortic aneurysm. BOWEL: The small bowel loops are normal in caliber. There is large amount of stool in the colon. There is no evidence of bowel dilatation or obstruction. APPENDIX: Atherosclerotic aortoiliac calcifications. Normal appendix. PERITONEUM: No free fluid. No free air. LYMPH NODES: No enlarged lymph nodes. BLADDER: Normal in appearance. REPRODUCTIVE: The uterus is normal in size. No adnexal masses. BONES: No acute fracture. Within normal limits for the patient's age. OTHER FINDINGS: There is severe diffuse anasarca. IMPRESSION: 1. Moderate bilateral pleural effusions and severe diffuse anasarca. 2. Confluent airspace disease in the right lower lobe could represent atelectasis however superimposed pneumonia cannot be excluded. Follow-up is advised. 3. 2 mm nonobstructing stone in the left interpolar region. No evidence of hydronephrosis. 4. Constipation. No evidence of bowel obstruction.
[2016-11-07] MEDS ORDERED: Bisacodyl 5mg EC Tab PO ONE (16:10)
[2016-11-07] MEDS: Morphine 2 mg/ml ISec IM PRN (20:44)
[2016-11-08] MEDS: Albuterol-Ipratrop 3 mg / 0.5 (3 ml) UD IH SCH ×4 (01:06→20:41)
[2016-11-08] MEDS: Insulin Lispro (humaLOG) MEDIUM Coverage SC SCH ×4 (08:25→22:01)
--- NOTE | 2016-11-08 08:28 | PN ---
DATE: 11/08/2016 The patient is chest pain free. She is without shortness of breath. PHYSICAL EXAMINATION: VITAL SIGNS: Blood pressure is 133/69, the heart rate is in the 80s. NECK: Negative JVD. LUNGS: Without rales. HEART: With S1, S2. EXTREMITIES: Without edema. LABORATORIES: Pending from today. IMPRESSION: 1. Stable angina. 2. Status post percutaneous transluminal coronary angioplasty and stent of a left anterior descendin g through a left internal mammary artery. 3. History of coronary artery bypass surgery. 4. Renal insufficiency. 5. Hypercholesterolemia. 6. Obesity. 7. History of coronary artery bypass surgery. Given these findings, we will need to check her creatinine today to finally rule out contrast nephrop athy on top of her baseline advanced renal disease. We will continue physical therapy. Austin Markham MD cc: [id number] TT: 11/08/2016 08:27:18 Confirmation # [id number] Dictation # [id number]
[2016-11-08 09:19] LABS: ALB/GLOB RATIO 0.9 (1.1-1.8); BILIRUBIN,TOTAL 0.3 mg/dL (0.2-1.3); CALCIUM 8.5 mg/dL (8.4-10.5); POTASSIUM 4.1 mmol/L (3.6-5.0); TOTAL PROTEIN 6.2 g/dL (5.8-8.3)
[2016-11-08] MEDS: DEXTROSE 5% IV SCH (09:41)
[2016-11-08] MEDS: FUROSEMIDE IV SCH (09:41)
[2016-11-08] MEDS: WATER IV SCH (09:41)
[2016-11-08] MEDS: POLYETHYLENE GLYCOL 3350 17 GM/Dose PACKET PO SCH ×2 (09:45→17:52)
[2016-11-08] MEDS: Morphine 2 mg/ml ISec IM PRN ×2 (09:46→17:44)
[2016-11-08] MEDS: Insulin Detemir 100 units/ml Vial (Levemir) SC SCH ×2 (10:00→22:02)
--- NOTE | 2016-11-08 19:47 | CP.PCM.PN ---
Subjective - Date & Time of Evaluation Date of Evaluation: 11/08/16 Time of Evaluation: 10:00 - Subjective Subjective: Medicine Progress note. Dr. Wiley Pt seen and examined at bedside. no acute events overnight. Patient states that she walked in the room with Physical therapy yesterday and it went well. Denies any new complaints. No F/C. No N/V/D. No abd pain. No SOB/Cp. Objective - Vital Signs/Intake and Output Vital Signs (last 24 hours): Temp Pulse Resp BP Pulse Ox 98.8 F 88 20 136/83 95 11/08/16 12:00 11/08/16 18:00 11/08/16 12:00 11/08/16 12:00 11/08/16 06:00 - Medications Medications: Current Medications Acetaminophen (Tylenol 325mg Tab) 650 mg PO Q6H PRN PRN Reason: Fever >100.4 F Last Admin: 11/06/16 18:52 Dose: 650 mg Albuterol/Ipratropium (Duoneb 3 Mg/0.5 Mg (3 Ml) Ud) 3 ml IH [id number] [facility] Last Admin: 11/08/16 13:57 Dose: Not Given Aspirin (Ecotrin) 81 mg PO DAILY [facility] Last Admin: 11/08/16 09:41 Dose: 81 mg Atorvastatin Calcium (Lipitor) 40 mg PO DIN [facility] Last Admin: 11/08/16 17:52 Dose: 40 mg Cholecalciferol (Vitamin D) 2,000 iu PO DAILY [facility] Last Admin: 11/08/16 09:47 Dose: 2,000 iu Clopidogrel Bisulfate (Plavix) 75 mg PO DAILY [facility] Last Admin: 11/08/16 09:46 Dose: 75 mg Docusate Sodium (Colace) 100 mg PO BID [facility] Last Admin: 11/08/16 17:44 Dose: 100 mg Famotidine (Pepcid) 20 mg PO DAILY [facility] Last Admin: 11/08/16 09:46 Dose: 20 mg Gabapentin (Neurontin) 300 mg PO DAILY [facility] PRN Reason: Protocol Last Admin: 11/08/16 09:46 Dose: 300 mg Heparin Sodium (Porcine) (Heparin) 5,000 units SC BID [facility] PRN Reason: Protocol Last Admin: 11/08/16 17:51 Dose: 5,000 units Hydralazine HCl (Apresoline) 25 mg PO TID [facility] Last Admin: 11/08/16 17:53 Dose: Not Given Furosemide 240 mg/ Dextrose 250 mls @ 10.41 mls/hr IV .Q24H KELSI; 10 MG/HR PRN Reason: Protocol Last Admin: 11/08/16 09:41 Dose: 10.41 mls/hr Insulin Detemir (Levemir) 28 unit SC Q12 [facility] Last Admin: 11/08/16 10:00 Dose: 28 unit Insulin Human Lispro (Humalog Med) 0 units SC ACHS [facility] PRN Reason: Protocol Last Admin: 11/08/16 17:52 Dose: 1 units Metoprolol Tartrate (Lopressor) 25 mg PO BID [facility] Last Admin: 11/08/16 17:52 Dose: Not Given Morphine Sulfate (Morphine) 1 mg IVP Q4H PRN PRN Reason: Pain, moderate (4-7) Last Admin: 11/07/16 09:26 Dose: 1 mg Morphine Sulfate (Morphine) 2 mg IM Q4H PRN PRN Reason: Pain, severe (8-10) Last Admin: 11/08/16 17:44 Dose: 2 mg Ondansetron HCl (Zofran Inj) 4 mg IVP Q4H PRN PRN Reason: Nausea/Vomiting Last Admin: 11/07/16 23:57 Dose: 4 mg Polyethylene Glycol (Miralax) 17 gm PO BID [facility] Last Admin: 11/08/16 17:52 Dose: 17 gm Sevelamer HCl (Renagel) 2,400 mg PO [facility] Last Admin: 11/08/16 17:52 Dose: 2,400 mg Sodium Chloride ([place] Nasal [place]) 0 ml NS Q6H PRN PRN Reason: Nasal congestion Last Admin: 11/03/16 22:47 Dose: 2 sprays - Labs Labs: 11/07/16 06:15 11/08/16 08:40 APTT 23.7 Seconds (23.7-30.8) 11/04/16 06:35 - Constitutional Appears: Well, No Acute Distress - Head Exam Head Exam: ATRAUMATIC, NORMAL INSPECTION, NORMOCEPHALIC - Eye Exam Eye Exam: EOMI, Normal appearance, PERRL. absent: Scleral icterus Pupil Exam: PERRL - ENT Exam ENT Exam: Mucous Membranes Moist - Respiratory Exam Respiratory Exam: Clear to Ausculation Bilateral. absent: Wheezes - Cardiovascular Exam Cardiovascular Exam: +S1, +S2. absent: JVD - GI/Abdominal Exam GI & Abdominal Exam: Soft. absent: Tenderness - Extremities Exam Extremities Exam: Pedal Edema Additional comments: Bilateral edema - Neurological Exam Neurological Exam: Alert, Awake, Oriented x3 - Skin Skin Exam: Dry, Intact, Normal Color, Warm Assessment and Plan - Assessment and Plan (Free Text) Assessment: 46yo F with PMHx of CHF, HTN, CAD s/p CABG, CKD nephrotic syndrome, Cardiomyopathy here for evaluation of worseing SOB. Renal function worsening. Likely CHF exacerbation with EF 21%. 1. Chest Pain Troponin negative x3 BNP elevated s/p CATH 11/04 with stent in LAD. r/o Contrast nephropathy ECHO - EF 21% ASA Plavix Cardiology following 2. End-Stage Renal Disease: Bun/Cr slightly increased today Nephrology, Dr. Flores, consulted. Help appreciated. - May need dialysis, awaiting recs - will need AV fistula and will discuss with cardio when it could be done given that she is on dual platelet therapy 3. COPD Exacerbation: Afebrile, nontachycardic, no leukocytosis Blood cultures negative Duonebs q6h kelsi 4. Hyperphosphatemia: Renagel 2400 mg po wm per renal - avoid calcium acetate or any calcium binder 5. Right Breast Pain: Mammography - no mmammographic or sonographic evidence of malignancy, does not have dense breasts continue annual screening mammorgraphy, as per ACR guidelines please see full report for details 6. Hx of Coronary Artery Disease: Plavix 75 mg po qd Lipitor 40 mg po din Aspirin 81 mg po qd Lopressor 25 mg po bid 7. Hx of HTN Lopressor 25 mg po bid Hydralazine 25 mg po tid 8. Hx of Diabetes Mellitus: Glucose - <200 Accuchecks Humalog sliding scale Levemir 14 units sc bid 9. Peripheral neuropathy: Neurontin 300 mg po qd 10. Abdominal Pain: CT Abd/Pelvis - mod BL effusions and severe diffuse anasarca - 2mm nonobstructing stone in the left interpolar region morphine prn for pain 11. Anemia: H/H: Stable No signs of acute blood loss 12. Prophylactic Measures: Pepcid 20 mg po daily hperarin 5000 units sc q8h Discussed case with Dr. Inez Hernandez PGY1
--- NOTE | 2016-11-08 23:28 | PN ---
DATE: 11/08/2016 SUBJECTIVE: The patient was seen earlier today on telemetry. Of note, she was snoring quite loudly, and when I woke her, she would quickly fall asleep again, likely a consequence of her known history of sleep apnea. She did not appear to be in any distress and was lying down without any obvious dysp matthew, almost supine. OBJECTIVE: VITAL SIGNS: Blood pressure is 116/65, heart rate 85, oral temperature 98.5, respiratory rate is 18, oxygen saturation 95% on room air. I's and O's were 480/900. The remainder of the exam was as foll ows: HEENT: The patient was normocephalic, atraumatic without any sinus tenderness. There was no jugular venous distention, but this may have been secondary to the patient's body habitus that I could not a ppreciate it. CHEST: Lungs ryan were auscultated anteriorly and were clear to auscultation; however, the sounds of her snoring made a complete lung exam difficult. CARDIAC: Had a regular rate and rhythm without any rubs or gallops. ABDOMEN: Soft and nontender. There was no rebounding, guarding or rigidity. There was no hepatospl enomegaly. EXTREMITIES: Still notable for anasarca. GENITOURINARY: There was no suprapubic tenderness that I could appreciated. NEUROLOGIC: There was no clonus. LABORATORY STUDIES: White count is 6.8, H and H 9.4/28.8 with a platelet count of 201,000. There ar e 82% neutrophils, 6% lymphocytes, 9% monocytes. Sodium is 138, with a potassium of 4.1, chloride of 104, bicarbonate 23, BUN/creatinine is 84/6.2 with a glucose of 157. There is no new imaging to rep ort. CT scan of the patient's abdomen and pelvis from yesterday without IV contrast revealed anasarc a and moderate bilateral pleural effusions, as well as possible right lower lobe pneumonia and consti pation. There is no new microbiology data to report. IMPRESSION AND PLAN: The patient is a 46-year-old obese female (BMI 47 kg/m2) with uncontrolled type 2 diabetes mellitus and nephrotic syndrome with progressive deterioration in her renal function, pre sumed secondary to diabetic nephropathy, hypertension, dyslipidemia, coronary artery disease with his tory of coronary artery bypass graft, decreased left ventricular systolic function with recently abno rmal stress test and an ejection fraction of 27% for which she is status post cardiac catheterization with placement of a stent during this hospitalization, also with a known history of obstructive slee p apnea and chronic obstructive pulmonary disease for which she is on BiPAP at home, chronic ulcerati on of her left foot, originally admitted with shortness of breath secondary to chronic obstructive pu lmonary disease exacerbation, heart failure with reduced ejection fraction, as well as cardiac ischem ia. 1. The patient had acute kidney injury even predating the cardiac catheterization, and she and her f amily were made aware of the risk of contrast nephropathy associated with a cardiac catheterization. 2. Her creatinine has increased and I do not believe this is secondary to contrast nephropathy since too much time has elapsed from the cardiac catheterization, rather I believe it represents the resul ts of the fact that she is on a furosemide infusion. We will not be able to fully address the patien t's edema without precipitating the need for dialysis, and since it is the patient's desire as per nu merous prior conversations to avoid dialysis at all costs, she will need to accept this degree of jeffrey ma or begin dialysis. Given this increase in creatinine that has occurred today, I will discontinue her furosemide infusion. 3. For afterload reduction, continue hydralazine. 4. Coronary artery disease status post stent, continue to dual antiplatelet therapy with aspirin and clopidogrel. She also remains on atorvastatin and metoprolol. 5. For low vitamin D levels, continue cholecalciferol 2000 units daily. 6. Overall, her prognosis is poor, and as an outpatient, she will need AV fistula placement, which w ill require 3 months to mature before it could be used for dialysis, but she will certainly require h emodialysis in the near future. Gary Flores MD cc: [id number] TT: 11/08/2016 23:28:45 Confirmation # [id number] Dictation # [id number] mn
[2016-11-09] MEDS: Albuterol-Ipratrop 3 mg / 0.5 (3 ml) UD IH SCH ×3 (02:45→15:53)
[2016-11-09] MEDS: Morphine 2 mg/ml ISec IVP PRN (04:45)
[2016-11-09] MEDS ORDERED: Morphine 2 mg/ml ISec IVP STA (05:39)
[2016-11-09 05:43] VITALS: O2SAT 99
[2016-11-09 07:17] LABS: HEMATOCRIT 27.3 % (36.0-48.0); MEAN CELL VOLUME 92.5 fL (80.0-105.0); MEAN CORPUSCULAR HEMOGLOBIN 29.5 pg (25.0-35.0); MEAN CORPUSCULAR HGB CONC 31.9 g/dl (31.0-37.0); MEAN PLATELET VOLUME 9.9 fl (7.0-11.0); WHITE BLOOD COUNT 6.9 10^3/ul (4.5-11.0)
[2016-11-09 08:26] LABS: CALCIUM 8.5 mg/dL (8.4-10.5); POTASSIUM 4.2 mmol/L (3.6-5.0)
--- NOTE | 2016-11-09 08:40 | PN ---
DATE: 11/06/2016 SUBJECTIVE: The patient was seen on telemetry. She had no complaints when I saw her. She reported having significant urine output, but admitted that she had not been collecting all of it and therefor e, what is documented for ins and outs in the charts is not complete. She denied any chest pain, ashly rtness of breath or palpitations and generally she felt better, but she stated that she is eager to s tart physical therapy and to ambulate. OBJECTIVE: VITAL SIGNS: Blood pressure is 135/65, heart rate 78, oral temperature 98.4, respiratory rate is 18. I's and O's are documented as 600/1100. HEENT: The patient was normocephalic, atraumatic without any sinus tenderness. She did appear to be somewhat pale. There was no jugular venous distention. Conjunctivae were also pale, but she was an icteric. LUNGS: Lung ryan on my exam were grossly clear and there were no rales, rhonchi or wheezing. CARDIAC: Had a regular rate and rhythm without any rubs or gallops. ABDOMEN: Soft, distended, but nontender, without any rebounding, guarding or rigidity. EXTREMITIES: Were notable for anasarca. NEUROLOGIC: She was nonfocal without any clonus nor any asterixis. VASCULAR: No bruits. SKIN: Intact. LABORATORY STUDIES: Are as follows: White count is 6.8, H and H is 9.4/28.8 with a platelet count o f 201,000. There are 82% neutrophils, 6% lymphocytes, 9% monocytes, and 3% eosinophils. Sodium is 1 38, potassium 4.0, chloride 106, bicarbonate 22, BUN/creatinine is 83/5.6 with a glucose of 91. Phos phorus is 5.8. Corrected calcium is 9.2. CT scan of the patient's abdomen and pelvis was performed without any oral or IV contrast and this revealed moderate bilateral pleural effusions and severe dif fuse anasarca, right lower lobe pneumonia versus atelectasis and a 2 mm nonobstructing stone in the l eft kidney, but without any evidence of hydronephrosis as well as constipation. There is no new [facility] obiology data to report. IMPRESSION AND PLAN: The patient is a 46-year-old obese female (BMI 47 kg/m2) with type 2 diabetes m ellitus that is insulin-dependent and uncontrolled, dyslipidemia, hypertension, coronary artery disea se with a history of 3-vessel coronary artery bypass graft, recent abnormal stress test with an eject ion fraction of 27%, stage IV chronic kidney disease with nephrotic syndrome, presumed secondary to d iabetic nephropathy; obstructive sleep apnea for which she is on BiPAP, chronic obstructive pulmonary disease, chronic left foot ulceration, originally admitted with shortness of breath secondary to chr onic obstructive pulmonary disease exacerbation as well as heart failure with reduced ejection fract ion, but also secondary to coronary artery disease. She is status post cardiac catheterization with placement of a drug-eluting stent. 1. Despite the fact that the patient had a cardiac catheterization, her renal function has been fair ly stable. Her creatinine has increased only minimally compared to where it was before the cardiac c atheterization. 2. Given the fact that the patient remains anasarcic, both on physical exam as well as imaging, we n eed to continue her furosemide infusion at 10 mg per hour and obtain negative fluid balance. Clearly we need to address her hypervolemia and the choice is either with ongoing furosemide or with dialysi s. She has no uremic symptoms at present and initiation of dialysis with aggressive volume removal w ould accelerate loss of renal function in this patient. The ideal situation would be that she is diu resed to the point that she is comfortable, while maintaining a marginally acceptable amount of renal function, so that she can have an AV fistula done so that by the time it has matured in 3 months or so, we can then begin hemodialysis via the AV fistula. If she does require hemodialysis more urgentl y, she will require placement of a PermCath. She is not a transplant candidate on account of her BMI currently being greater than 35 kg/m2. 3. Physical therapy evaluation was requested to facilitate the patient with ambulation. If she ambu lates she may experience a decrease in her lower extremity edema as well. 4. Although the patient has decreased left ventricular systolic function, she is not a candidate for an LESTER inhibitor or an angiotensin receptor cristhian on account for the fact that she still has acute kidney injury and we are trying to delay the time until which we need to initiate hemodialysis. We can continue hydralazine for afterload reduction and the nitrates for preload reduction however. Cer tainly we can continue her metoprolol and for her coronary artery disease we can continue high intens ity statin therapy with atorvastatin as well as dual antiplatelet therapy with aspirin as well as gill pidogrel. 5. The patient's vitamin D25 hydroxy levels were quite low, likely secondary to increased urinary lo sses from nephrotic syndrome. We will continue vitamin D3 2000 units orally daily. 6. For her hyperphosphatemia, since she is diabetic, I would like to avoid any calcium-containing ph osphate binder and instead we are continuing her on sevelamer 800 mg 3 tablets orally with each meal, which has improved her phosphorus control. 7. CT scan of her abdomen and pelvis revealed that she was quite constipated and she is now on twice daily MiraLax. It is noted that as patients progress through the stages of chronic kidney disease, they become more reliant on GI excretion of potassium and therefore I want to do everything we can to prevent further worsening of her constipation. 8. If the patient is not in more negative fluid balance, then we will have to either increase her fu rosemide drip or give her several days of metolazone concurrently with her furosemide as well. 9. The patient is certainly in a hypercoagulable state because of her obesity and nephrotic syndrome and the fact that she is quite sedentary, continue heparin 5000 units subcutaneously twice daily. 10. TCU evaluation has been requested so that the patient can continue to receive intravenous Lasix and be diuresed while on the TCU as well. Review of systems, past medical history, social history and family history were all reviewed and ther e were no new changes. Gary Flores MD cc: [id number] TT: 11/07/2016 22:07:05 Confirmation # [id number] Dictation # [id number] dn
[2016-11-09] MEDS: Insulin Lispro (humaLOG) MEDIUM Coverage SC SCH (10:57)
[2016-11-09] MEDS: Insulin Detemir 100 units/ml Vial (Levemir) SC SCH (10:57)
[2016-11-09] MEDS: POLYETHYLENE GLYCOL 3350 17 GM/Dose PACKET PO SCH (10:59)
--- NOTE | 2016-11-09 11:56 | PN ---
DATE: 11/09/2016 The patient is comfortable without shortness of breath, without chest pain. PHYSICAL EXAMINATION: VITAL SIGNS: Blood pressure is 117/53. The heart rate is in the 70s. NECK: Negative JVD. LUNGS: Without rales. HEART: Reveals S1, S2. EXTREMITIES: Without edema. LABORATORY DATA: The creatinine is up to 6.4, the hemoglobin is 8.7. IMPRESSION: 1. Progressive renal insufficiency. 2. Stable angina. 3. History of coronary artery bypass surgery. 4. History of percutaneous transluminal coronary angioplasty and stent of a left anterior descending through the left internal mammary artery. 5. History of anemia. Given these findings, I agree with stopping the intravenous Lasix. The patient will discontinue tele metry today. Following up the creatinine would be appropriate. It is likely the patient will need d ialysis soon. The patient is scheduled to transfer to the TCU. Austin Markham MD cc: [id number] TT: 11/09/2016 11:56:11 Confirmation # [id number] Dictation # [id number] mn
[2016-11-09 11:59] VITALS: BP 129/67; PULSE 76; RESP 20; TEMP 97.8
[2016-11-09] MEDS ORDERED: Hydrocortisone 1% Cream (30 GM) TOP SCH (12:00)
--- NOTE | 2016-11-09 14:11 | PN ---
DATE: 11/09/2016 SUBJECTIVE: The patient was seen on telemetry. She appeared to be somewhat uncomfortable. She benjie ed any chest pain or shortness of breath, but did complain of right lower quadrant pain that was unre lieved with morphine. She is scheduled to undergo CT scan of her abdomen and pelvis. There was no d yspnea that was appreciated. OBJECTIVE: VITAL SIGNS: Blood pressure is 129/67, heart rate 76, oral temperature is 97.8, respiratory rate is 18, oxygen saturation 98% on 2 liters via nasal cannula. I's and O's were 480/450. HEENT: The patient was normocephalic and atraumatic. There was no sinus tenderness. Conjunctivae w ere mildly pale but they were anicteric. I was unable to appreciate any jugular venous distention li jj secondary to this patient's body habitus. CHEST: Lungs ryan on my exam were grossly clear to auscultation. There were no rales, rhonchi or wheezing. Diaphragmatic excursion and airflow into both lung ryan was bilaterally symmetrical. CARDIAC: Regular rate and rhythm without any rubs or gallops. There were no heaves. ABDOMEN: Soft with mild right lower quadrant tenderness but without any rebound, guarding or rigidit y. There was no hepatosplenomegaly. EXTREMITIES: Continue to reveal anasarca. NEUROLOGIC: The patient was nonfocal. VASCULAR: No bruits. SKIN: Intact GENITOURINARY: Had no suprapubic tenderness nor any CVA tenderness. LABORATORY STUDIES: White count is 6.9, H and H is 8.7/27.3 with a platelet count of 158,000. Sodiu m is 139, potassium is 4.2, chloride 106, bicarbonate 23, BUN/creatinine is 80/6.4 with a glucose of 88, corrected calcium is 9.3. MICROBIOLOGY: There is no new microbiology data to report. IMAGING: There is no new imaging to report as of yet either. IMPRESSION AND PLAN: The patient a 46-year-old obese female (body mass index of 48.1 kg/m2) with [place] ontrolled type 2 diabetes mellitus and nephrotic syndrome with progressive deterioration in her renal function, presumed secondary to diabetic nephropathy, hypertension, dyslipidemia, coronary artery di sease with history of coronary artery bypass graft, decreased left ventricular systolic function with an ejection fraction of 27% and an abnormal stress test for which is status post cardiac catheteriza tion during this hospitalization with placement of a stent, obstructive sleep apnea and chronic obstr uctive pulmonary disease for which she is on BiPAP at home, ulceration of the left foot, originally a dmitted with shortness of breath secondary to chronic obstructive pulmonary disease exacerbation as w ell as heart failure with reduced ejection fraction and cardiac ischemia. 1. We are walking a fine line with this patient. We have been attempting to diurese her for symptom atic control of her edema; however, now that her creatinine is increasing, I discontinued her furosem jany infusion last night. 2. I explained to the patient, her son as well as her mother at bedside that if our goal is to diure se her to the point that she has no edema, she will certainly require hemodialysis imminently. Alter natively we can stop the diuresis and the patient will have to live with a certain amount of edema th at she has right now to prolong the time before she actually needs dialysis. 3. Regardless, the patient will need an arteriovenous fistula to be created upon discharge. 4. The patient is for imaging to evaluate her right lower quadrant pain. 5. Continue 2 gram sodium, 2 gram potassium diet. 6. For afterload reduction, continue hydralazine. For her coronary artery disease, the patient is o n dual antiplatelet therapy with aspirin as well as clopidogrel and is also on atorvastatin and metop rolol. 7. For hyperphosphatemia, continue Renagel 800 mg 3 tablets orally with each meal. 8. The patient was encouraged to ambulate. She has been accepted to the transitional care unit for physical therapy needs. The above was discussed with the patient as well as [facility]. Review of systems, past medical history, social history and family history were all reviewed and ther e are no new changes. Gary Flores MD cc: [id number] TT: 11/09/2016 14:10:57 Confirmation # [id number] Dictation # [id number] mn
--- NOTE | 2016-11-09 14:31 | CT ---
PROCEDURE: CT Lumbar Spine without contrast HISTORY: lower back pain COMPARISON: None. TECHNIQUE: Axial computed tomography images were obtained of the lumbar spine without the use of intravenous contrast. Coronal and sagittal reformatted images were created and reviewed. Radiation dose: Total exam DLP = 1022 mGy-cm. FINDINGS: VERTEBRAE: Unremarkable. No fracture. Normal alignment. DISCS/SPINAL CANAL/NEURAL FORAMINA: L1-2: Unremarkable. L2-3: Unremarkable. L3-4: Unremarkable. L4-5: Unremarkable. L5-S1: Unremarkable. PARASPINAL SOFT TISSUES: Unremarkable. OTHER FINDINGS: None. IMPRESSION: Unremarkable CT of Lumbar Spine.
--- NOTE | 2016-11-09 14:58 | CP.PCM.DIS ---
<Alvarez,Wade - Last Filed: 11/09/16 21:49> Provider - Provider Date of Admission: 10/28/16 11:48 Attending physician: Faith Leavitt MD Primary care physician: Jono Correa MD Time Spent in preparation of Discharge (in minutes): 35 Diagnosis - Discharge Diagnosis (1) Congestive heart failure Status: Chronic (2) COPD exacerbation Status: Acute (3) Chest pain Status: Acute (4) Hyperlipidemia Status: Chronic (5) Hypertension Status: Chronic (6) Renal insufficiency Status: Chronic Hospital Course - Lab Results Lab Results: Most Recent Lab Values WBC 6.9 10^3/ul (4.5-11.0) 11/09/16 06:45 RBC 2.95 10^6/uL (3.5-6.1) L 11/09/16 06:45 Hgb 8.7 gm/dL (12.0-16.0) L 11/09/16 06:45 Hct 27.3 % (36.0-48.0) L 11/09/16 06:45 MCV 92.5 fL (80.0-105.0) 11/09/16 06:45 MCH 29.5 pg (25.0-35.0) 11/09/16 06:45 MCHC 31.9 g/dl (31.0-37.0) 11/09/16 06:45 RDW 14.0 % (11.5-14.5) 11/09/16 06:45 Plt Count 158 10^3/uL (120.0-450.0) 11/09/16 06:45 MPV 9.9 fl (7.0-11.0) 11/09/16 06:45 Gran % 82.3 % (50.0-68.0) H 11/07/16 06:15 Lymph % (Auto) 6.0 % (22.0-35.0) L 11/07/16 06:15 Travis % (Auto) 8.5 % (1.0-6.0) H 11/07/16 06:15 Eos % (Auto) 3.2 % (1.5-5.0) 11/07/16 06:15 Baso % (Auto) 0.0 % (0.0-3.0) 11/07/16 06:15 Gran # 5.59 (1.4-6.5) 11/07/16 06:15 Lymph # 0.4 (1.2-3.4) L 11/07/16 06:15 Travis # 0.6 (0.1-0.6) 11/07/16 06:15 Eos # 0.2 (0.0-0.7) 11/07/16 06:15 Baso # 0.00 K/mm3 (0.0-2.0) 11/07/16 06:15 APTT 23.7 Seconds (23.7-30.8) 11/04/16 06:35 pO2 50 mm/Hg (30-55) 10/28/16 09:30 VBG pH 7.29 (7.32-7.43) L 10/28/16 09:30 VBG pCO2 48.0 (40-60) 10/28/16 09:30 VBG HCO3 23.1 mmol/l (21-28) 10/28/16 09:30 VBG Total CO2 24.6 mmol.L (22-28) 10/28/16 09:30 VBG O2 Sat (Calc) 85.6 % (40-65) H 10/28/16 09:30 VBG Base Excess -3.8 mmol/L (0.0-2.0) L 10/28/16 09:30 VBG Potassium 4.6 mmol/L (3.6-5.2) 10/28/16 09:30 Sodium 139.0 mmol/L (132-148) 10/28/16 09:30 Chloride 112.0 mmol/L (98-107) H 10/28/16 09:30 Glucose 354 mg/dl (65-105) H 10/28/16 09:30 Lactate 0.7 mmol/L (0.7-2.1) 10/28/16 09:30 FiO2 21.0 % 10/28/16 09:30 Sodium 139 mmol/L (132-148) 11/09/16 06:45 Potassium 4.2 mmol/L (3.6-5.0) 11/09/16 06:45 Chloride 106 mmol/L (95-110) 11/09/16 06:45 Carbon Dioxide 23 mmol/L (21-33) 11/09/16 06:45 Anion Gap 14 (10-20) 11/09/16 06:45 BUN 88 mg/dL (7-21) H 11/09/16 06:45 Creatinine 6.4 mg/dL (0.5-1.4) H 11/09/16 06:45 Est GFR ( Amer) 8 11/09/16 06:45 Est GFR (Non-Af Amer) 7 11/09/16 06:45 POC Glucose (mg/dL) 126 mg/dL (65-110) H 11/09/16 11:09 Random Glucose 88 mg/dL (70-110) 11/09/16 06:45 Hemoglobin A1c 8.7 % (4.2-6.5) H 10/29/16 07:30 Calcium 8.5 mg/dL (8.4-10.5) 11/09/16 06:45 Phosphorus 5.8 mg/dL (2.5-4.5) H 11/07/16 06:15 Magnesium 1.9 mg/dL (1.7-2.2) 11/07/16 06:15 Iron 79 ug/dL (45-180) 11/04/16 06:35 TIBC 196 ug/dL (265-497) L 11/04/16 06:35 % Saturation 40 % (20-55) 11/04/16 06:35 Ferritin 286.0 ng/mL 11/04/16 06:35 Total Bilirubin 0.3 mg/dL (0.2-1.3) 11/08/16 08:40 AST 21 U/L (15-39) 11/08/16 08:40 ALT 18 U/L (7-56) 11/08/16 08:40 Alkaline Phosphatase 49 U/L (38-133) 11/08/16 08:40 Lactate Dehydrogenase 558 U/L (333-699) 11/02/16 07:40 Total Creatine Kinase 162 U/L (35-230) 11/02/16 07:40 Troponin I 0.09 ng/mL 11/02/16 07:40 NT-Pro-B Natriuret Pep 09677 pg/mL (0-450) H 10/28/16 10:36 Total Protein 6.2 g/dL (5.8-8.3) 11/08/16 08:40 Albumin 3.0 g/dL (3.0-4.8) 11/08/16 08:40 Globulin 3.3 gm/dL 11/08/16 08:40 Albumin/Globulin Ratio 0.9 (1.1-1.8) L 11/08/16 08:40 Beta HCG, Quant 5.18 mIU/mL (0-6.15) 10/28/16 09:00 Venous Blood Potassium 4.6 mmol/L (3.6-5.2) 10/28/16 09:30 - Hospital Course Hospital Course: This is a 46 year old female with past medical history notable for CAD s/p CABG , chronic renal insufficiency, COPD, DM, HLD, and HTN who presented to the ED for acute onset of shortness of breath and chest pain. The patient appeared to be in respiratory distress and was treated empirically for acute COPD exacerbation. She was given rocephin, azithrromycin, duonebs and steroids. EKG was positive for nonspecific ST-segment and T-wave changes, troponin was positive, BNP was positve, chest xray was significant for min bibasilar infiltrates and small effusions. Her likely acute COPD exacerbation resolved the next day and a cath procedure was scheduled. However, due to the pt's elevated Cr levels the cath procedure was rescheduled pending a evaluation from Nephrology due to the pt's ESRD. The pt. was managed medically and put on a Primacor drip for afterload reduction. The patient was also on furosemide, which was likely contributing to her elevated Cr. However, it was necessary due to the patient being fluid overloaded. The patient was reluctant to undergo catheterization due to the increased risk of dialysis afterwards. It was explained to the pt that she would likely need dialysis within the near future regardless of the cath procedure. In light of this the patient agreed to undergo the cath procedure. The cath procedure was uncomplicated and a stent was deployed in the LAD. After the procedure her kidney function was monitored closely for 3 days for signs of contrast induced nephropathy. Her Cr. was stable for 3 days to and her furosemide drip was discontinued. She was d/c to rehab for physical therapy. She will eventually need a AV fistula created for when she need dialysis. - Date & Time of H&P Date of H&P: 11/09/16 Time of H&P: 09:40 Discharge Exam - Head Exam Head Exam: ATRAUMATIC, NORMAL INSPECTION, NORMOCEPHALIC - Eye Exam Eye Exam: EOMI - ENT Exam ENT Exam: Mucous Membranes Moist - Respiratory Exam Respiratory Exam: Clear to PA & Lateral, NORMAL BREATHING PATTERN, UNREMARKABLE - Cardiovascular Exam Cardiovascular Exam: REGULAR RHYTHM, +S1, +S2. absent: JVD - GI/Abdominal Exam GI & Abdominal Exam: Normal Bowel Sounds, Unremarkable - Extremities Exam Extremities exam: joint swelling, pedal edema - Back Exam Back exam: CVA tenderness (L), CVA tenderness (R), paraspinal tenderness, rash noted - Neurological Exam Neurological exam: Alert, Oriented x3 - Psychiatric Exam Psychiatric exam: Normal Affect, Normal Mood - Skin Skin Exam: Dry, Intact, Petechiae (on legs bl and back), Warm Discharge Plan - Follow Up Plan Condition: GUARDED Disposition: TRANSF TO SNF Instructions: Chronic Kidney Disease (DC), Renal Failure Diet (DC), How to Check Your Blood Sugar (DC) Additional Instructions: medically stable to d/c to TRCU, continue orders as is Referrals: Jono Correa MD [Primary Care Provider] - <Faith Leavitt - Last Filed: 11/10/16 17:07> Provider - Provider Date of Admission: 10/28/16 11:48 Attending physician: Faith Leavitt MD Primary care physician: Jono Correa MD Hospital Course - Lab Results Lab Results: Most Recent Lab Values WBC 6.9 10^3/ul (4.5-11.0) 11/09/16 06:45 RBC 2.95 10^6/uL (3.5-6.1) L 11/09/16 06:45 Hgb 8.7 gm/dL (12.0-16.0) L 11/09/16 06:45 Hct 27.3 % (36.0-48.0) L 11/09/16 06:45 MCV 92.5 fL (80.0-105.0) 11/09/16 06:45 MCH 29.5 pg (25.0-35.0) 11/09/16 06:45 MCHC 31.9 g/dl (31.0-37.0) 11/09/16 06:45 RDW 14.0 % (11.5-14.5) 11/09/16 06:45 Plt Count 158 10^3/uL (120.0-450.0) 11/09/16 06:45 MPV 9.9 fl (7.0-11.0) 11/09/16 06:45 Gran % 82.3 % (50.0-68.0) H 11/07/16 06:15 Lymph % (Auto) 6.0 % (22.0-35.0) L 11/07/16 06:15 Travis % (Auto) 8.5 % (1.0-6.0) H 11/07/16 06:15 Eos % (Auto) 3.2 % (1.5-5.0) 11/07/16 06:15 Baso % (Auto) 0.0 % (0.0-3.0) 11/07/16 06:15 Gran # 5.59 (1.4-6.5) 11/07/16 06:15 Lymph # 0.4 (1.2-3.4) L 11/07/16 06:15 Travis # 0.6 (0.1-0.6) 11/07/16 06:15 Eos # 0.2 (0.0-0.7) 11/07/16 06:15 Baso # 0.00 K/mm3 (0.0-2.0) 11/07/16 06:15 APTT 23.7 Seconds (23.7-30.8) 11/04/16 06:35 pO2 50 mm/Hg (30-55) 10/28/16 09:30 VBG pH 7.29 (7.32-7.43) L 10/28/16 09:30 VBG pCO2 48.0 (40-60) 10/28/16 09:30 VBG HCO3 23.1 mmol/l (21-28) 10/28/16 09:30 VBG Total CO2 24.6 mmol.L (22-28) 10/28/16 09:30 VBG O2 Sat (Calc) 85.6 % (40-65) H 10/28/16 09:30 VBG Base Excess -3.8 mmol/L (0.0-2.0) L 10/28/16 09:30 VBG Potassium 4.6 mmol/L (3.6-5.2) 10/28/16 09:30 Sodium 139.0 mmol/L (132-148) 10/28/16 09:30 Chloride 112.0 mmol/L (98-107) H 10/28/16 09:30 Glucose 354 mg/dl (65-105) H 10/28/16 09:30 Lactate 0.7 mmol/L (0.7-2.1) 10/28/16 09:30 FiO2 21.0 % 10/28/16 09:30 Sodium 139 mmol/L (132-148) 11/09/16 06:45 Potassium 4.2 mmol/L (3.6-5.0) 11/09/16 06:45 Chloride 106 mmol/L (95-110) 11/09/16 06:45 Carbon Dioxide 23 mmol/L (21-33) 11/09/16 06:45 Anion Gap 14 (10-20) 11/09/16 06:45 BUN 88 mg/dL (7-21) H 11/09/16 06:45 Creatinine 6.4 mg/dL (0.5-1.4) H 11/09/16 06:45 Est GFR ( Amer) 8 11/09/16 06:45 Est GFR (Non-Af Amer) 7 11/09/16 06:45 POC Glucose (mg/dL) 233 mg/dL (65-110) H 11/09/16 23:06 Random Glucose 88 mg/dL (70-110) 11/09/16 06:45 Hemoglobin A1c 8.7 % (4.2-6.5) H 10/29/16 07:30 Calcium 8.5 mg/dL (8.4-10.5) 11/09/16 06:45 Phosphorus 5.8 mg/dL (2.5-4.5) H 11/07/16 06:15 Magnesium 1.9 mg/dL (1.7-2.2) 11/07/16 06:15 Iron 79 ug/dL (45-180) 11/04/16 06:35 TIBC 196 ug/dL (265-497) L 11/04/16 06:35 % Saturation 40 % (20-55) 11/04/16 06:35 Ferritin 286.0 ng/mL 11/04/16 06:35 Total Bilirubin 0.3 mg/dL (0.2-1.3) 11/08/16 08:40 AST 21 U/L (15-39) 11/08/16 08:40 ALT 18 U/L (7-56) 11/08/16 08:40 Alkaline Phosphatase 49 U/L (38-133) 11/08/16 08:40 Lactate Dehydrogenase 558 U/L (333-699) 11/02/16 07:40 Total Creatine Kinase 162 U/L (35-230) 11/02/16 07:40 Troponin I 0.09 ng/mL 11/02/16 07:40 NT-Pro-B Natriuret Pep 75848 pg/mL (0-450) H 10/28/16 10:36 Total Protein 6.2 g/dL (5.8-8.3) 11/08/16 08:40 Albumin 3.0 g/dL (3.0-4.8) 11/08/16 08:40 Globulin 3.3 gm/dL 11/08/16 08:40 Albumin/Globulin Ratio 0.9 (1.1-1.8) L 11/08/16 08:40 Beta HCG, Quant 5.18 mIU/mL (0-6.15) 10/28/16 09:00 Venous Blood Potassium 4.6 mmol/L (3.6-5.2) 10/28/16 09:30 Attending/Attestation - Attestation I have personally seen and examined this patient.: Yes I have fully participated in the care of the patient.: Yes I have reviewed all pertinent clinical information, including history, physical exam and plan: Yes Notes (Text): Patient seen and examined with the resident. Agree with the above note with the following additions/ exceptions: This is 46 year old female with history of obesity, IDDM, HTN, CAD s/p CABG, CKD secondary to nephrotic syndrome, cardiomyopathy who got admitted for evaluation of shortness of breath most likely due to CHF exacerbation due to systolic dysfunction (ef 21%). She underwent cardiac cath and LAD stent was placed. Lasix drip was stopped today as she had worsening of renal function. SOB and leg edema has improved however complains of back pain. Reports tenderness in lumbar spine. Will do CT lumbar spine. Patient can go to TCU and we will follow up on results of CT spine. Continue aspirin and Plavix. Urine output is adequate. Diabetes and hypertension is better controlled. She needs outpatient AV fistula placement in the future. Upon discharge patient will follow up with Dr Sunny De La Cruz.
== END 2016-11-09 16:44 | DRG 246 ==
LOC: ED 08:07 → ERH 11:48 → 2RSO 18:25 → 2RNO 11-02 19:27 → 2RSO 11-04 11:49
PROVIDERS: ADMIT Hospitalist; ATTEND Hospitalist
PROC: 027034Z Dilation of Coronary Artery, One Artery with Drug-eluting Intraluminal Device, Percutaneous Approach (ICD-10-PCS; principal; 2016-11-04)
PROC: 4A023N7 Measurement of Cardiac Sampling and Pressure, Left Heart, Percutaneous Approach (ICD-10-PCS; 2016-11-04)
PROC: B205YZZ Plain Radiography of Left Heart using Other Contrast (ICD-10-PCS; 2016-11-04)
PROC: B201YZZ Plain Radiography of Multiple Coronary Arteries using Other Contrast (ICD-10-PCS; 2016-11-04)
PROC: B205YZZ Plain Radiography of Left Heart using Other Contrast (ICD-10-PCS; 2016-11-04)
DX: I50.23 Acute on chronic systolic (congestive) heart failure (principal); J18.9 Pneumonia, unspecified organism; N17.9 Acute kidney failure, unspecified; E87.0 Hyperosmolality and hypernatremia; N18.6 End stage renal disease; D68.59 Other primary thrombophilia; I42.0 Dilated cardiomyopathy; J44.1 Chronic obstructive pulmonary disease with (acute) exacerbation; J45.901 Unspecified asthma with (acute) exacerbation; I13.2 Hypertensive heart and chronic kidney disease with heart failure and with stage 5 chronic kidney disease, or end stage renal disease; Z68.42 Body mass index [BMI] 45.0-49.9, adult; N04.9 Nephrotic syndrome with unspecified morphologic changes; S22.32XA Fracture of one rib, left side, initial encounter for closed fracture; I27.2 Other secondary pulmonary hypertension; E11.21 Type 2 diabetes mellitus with diabetic nephropathy; E11.22 Type 2 diabetes mellitus with diabetic chronic kidney disease; E11.40 Type 2 diabetes mellitus with diabetic neuropathy, unspecified; D63.1 Anemia in chronic kidney disease; E11.621 Type 2 diabetes mellitus with foot ulcer; E11.65 Type 2 diabetes mellitus with hyperglycemia; E66.9 Obesity, unspecified; E78.00 Pure hypercholesterolemia, unspecified; E78.5 Hyperlipidemia, unspecified; E83.39 Other disorders of phosphorus metabolism; I25.118 Atherosclerotic heart disease of native coronary artery with other forms of angina pectoris; G47.33 Obstructive sleep apnea (adult) (pediatric); L97.529 Non-pressure chronic ulcer of other part of left foot with unspecified severity; I25.5 Ischemic cardiomyopathy; K59.00 Constipation, unspecified; Z95.1 Presence of aortocoronary bypass graft; F32.89 Other specified depressive episodes; I25.2 Old myocardial infarction; N64.4 Mastodynia; Z79.02 Long term (current) use of antithrombotics/antiplatelets; Z79.4 Long term (current) use of insulin; Z79.82 Long term (current) use of aspirin; Z79.899 Other long term (current) drug therapy; Z80.0 Family history of malignant neoplasm of digestive organs; Z83.3 Family history of diabetes mellitus; Z87.891 Personal history of nicotine dependence; K52.9 Noninfective gastroenteritis and colitis, unspecified

== ENCOUNTER 2016-11-09 16:44 | Inpatient (IN) | payer OTHER, MEDICAID ==
[2016-11-09 17:42] VITALS: BMI 48.1
[2016-11-09] MEDS ORDERED: Morphine 2 mg/ml ISec IVP PRN (17:43)
[2016-11-09] MEDS ORDERED: Morphine 2 mg/ml ISec IM PRN (17:43)
[2016-11-09] MEDS: Albuterol-Ipratrop 3 mg / 0.5 (3 ml) UD IH SCH (21:09)
[2016-11-09] MEDS: Hydrocortisone 1% Cream (30 GM) TOP SCH (21:53)
[2016-11-09] MEDS: POLYETHYLENE GLYCOL 3350 17 GM/Dose PACKET PO SCH (21:56)
[2016-11-09] MEDS: Oxycodone/Acetaminophen 5/325 mg Tab PO PRN (21:57)
[2016-11-09] MEDS: Insulin Lispro (humaLOG) MEDIUM Coverage SC SCH (23:07)
[2016-11-09] MEDS: Insulin Detemir 100 units/ml Vial (Levemir) SC SCH (23:08)
[2016-11-10] MEDS: Albuterol-Ipratrop 3 mg / 0.5 (3 ml) UD IH SCH ×3 (02:43→13:05)
[2016-11-10] MEDS: Insulin Lispro (humaLOG) MEDIUM Coverage SC SCH ×5 (06:33→22:16)
[2016-11-10 07:21] LABS: ADD MANUAL DIFF? NO
[2016-11-10 07:26] LABS: EOS # 0.2 (0.0-0.7); EOS % 3.3 % (1.5-5.0); GRAN # 3.78 (1.4-6.5); HEMATOCRIT 25.4 % (36.0-48.0); LYMPH # 0.4 (1.2-3.4); LYMPH % 7.5 % (22.0-35.0); MEAN CELL VOLUME 92.7 fL (80.0-105.0); MEAN CORPUSCULAR HEMOGLOBIN 29.6 pg (25.0-35.0); MEAN CORPUSCULAR HGB CONC 31.9 g/dl (31.0-37.0); MONO # 0.6 (0.1-0.6); MONO % 12.2 % (1.0-6.0); PLATELET COUNT 169 10^3/uL (120.0-450.0); RED CELL DISTRIBUTION WIDTH 14.1 % (11.5-14.5); WHITE BLOOD COUNT 4.9 10^3/ul (4.5-11.0)
[2016-11-10 07:39] LABS: ALB/GLOB RATIO 0.8 (1.1-1.8); BILIRUBIN,TOTAL 0.3 mg/dL (0.2-1.3); CALCIUM 8.4 mg/dL (8.4-10.5); POTASSIUM 4.3 mmol/L (3.6-5.0); TOTAL PROTEIN 5.7 g/dL (5.8-8.3)
[2016-11-10] MEDS: POLYETHYLENE GLYCOL 3350 17 GM/Dose PACKET PO SCH ×2 (09:58→17:35)
[2016-11-10] MEDS: Insulin Detemir 100 units/ml Vial (Levemir) SC SCH ×2 (09:59→22:28)
[2016-11-10] MEDS: Hydrocortisone 1% Cream (30 GM) TOP SCH ×2 (09:59→17:38)
[2016-11-10] MEDS: Oxycodone/Acetaminophen 5/325 mg Tab PO PRN ×2 (15:42→23:50)
--- NOTE | 2016-11-10 16:24 | CP.PCM.HP ---
<Wade Alvarez - Last Filed: 11/10/16 16:49> History of Present Illness - History of Present Illness History of Present Illness: This is a 46 year old female with past medical history notable for CAD s/p CABG , recent cath w/stent, chronic renal insufficiency, COPD, DM, HLD, and HTN who presented TCU after hospitalization. During that hospitalization she was initially admitted for acute onset of shortness of breath and chest pain. She later underwent a cath procedure which was uncomplicated and a stent was deployed in the LAD. After the procedure her kidney function was monitored closely for 3 days for signs of contrast induced nephropathy. Her Cr. was stable for 3 days and her furosemide drip was discontinued. She was d/c to rehab for physical therapy. She will eventually need a AV fistula created for when she need dialysis due to her declining renal function in the setting of CKD. Today, she complained of nausea, constipation, and pruritus on her legs. She denied headaches, fevers, chills, chest pain, difficulty breathing or abdominal pain. PMHX: CKD, IDDM, HLD, HTN, CAD s/p CABG and stent, COPD, AKBAR, depression, chronic renal insufficiency, chronic foot ulcer Sx: CATH 10/2016 (1 stent LAD) CABG (3 vessels- 2013), debridement of left foot ulcer Allergies: NKDA FH: DM- Mother/father; liver cancer- father's side Social: Denies tobacco, ETOH or drug use. Born in [place]. Does not work. Lives with son. Cardio- Dr. Markham Nephro- Dr. Flores PMD- Dr. Correa Present on Admission - Present on Admission Any Indicators Present on Admission: No Review of Systems - Constitutional Constitutional: absent: Chills, Fever, Headache - EENT Eyes: absent: Change in Vision Ears: absent: Decreased Hearing Nose/Mouth/Throat: absent: Epistaxis, Sore Throat - Cardiovascular Cardiovascular: absent: Chest Pain, Chest Pain at Rest, Dyspnea, Palpitations - Respiratory Respiratory: absent: Cough, Dyspnea - Gastrointestinal Gastrointestinal: Constipation. absent: Diarrhea, Nausea, Vomiting - Genitourinary Genitourinary: absent: Difficulty Urinating, Dysuria, Flank Pain, Hematuria - Integumentary Integumentary: Pruritus, Rash - Neurological Neurological: absent: Abnormal Hearing, Dizziness, Numbness, Headaches Past Patient History - Infectious Disease Hx of Infectious Diseases: None - Tetanus Immunizations Tetanus Immunization: Unknown - Past Medical History & Family History Past Medical History?: Yes - Past Social History Smoking Status: Never Smoked - CARDIAC Hx Cardiac Disorders: Yes Hx Hypertension: Yes - PULMONARY Hx Respiratory Disorders: Yes Hx Asthma: Yes - NEUROLOGICAL Hx Neurological Disorder: Yes (NEUROPATHY) Other/Comment: chronic b/l legs and foot burning pain - HEENT Hx HEENT Problems: Yes (eyeglasses) - RENAL Hx Chronic Kidney Disease: Yes Other/Comment: Renal insufficiency -2 years. 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 - ENDOCRINE/METABOLIC Hx Diabetes Mellitus Type 1: Yes - HEMATOLOGICAL/ONCOLOGICAL Hx Blood Transfusions: Yes Hx Blood Transfusion Reaction: No - INTEGUMENTARY Hx Dermatological Problems: No - MUSCULOSKELETAL/RHEUMATOLOGICAL Hx Falls: No - GASTROINTESTINAL Hx Gastrointestinal Disorders: No - GENITOURINARY/GYNECOLOGICAL Hx Genitourinary Disorders: No - PSYCHIATRIC Hx Psychophysiologic Disorder: Yes Hx Depression: Yes Hx Emotional Abuse: No Hx Physical Abuse: No Hx Substance Use: No - SURGICAL HISTORY Hx Surgeries: Yes - ANESTHESIA Hx Anesthesia Reactions: No Hx Malignant Hyperthermia: No Meds Allergies/Adverse Reactions: Allergies Allergy/AdvReac Type Severity Reaction Status Date / Time morphine Allergy RASH Verified 11/09/16 20:56 anesthesia AdvReac VOMITING Uncoded 11/09/16 20:56 Physical Exam - Constitutional Appears: Non-toxic, No Acute Distress - Head Exam Head Exam: ATRAUMATIC - Eye Exam Eye Exam: EOMI - ENT Exam ENT Exam: Mucous Membranes Moist - Neck Exam Neck exam: Positive for: Full Rom - Respiratory Exam Respiratory Exam: Clear to Auscultation Bilateral, NORMAL BREATHING PATTERN. absent: Rhonchi, Wheezes - Cardiovascular Exam Cardiovascular Exam: REGULAR RHYTHM, RRR, +S1, +S2 - GI/Abdominal Exam GI & Abdominal Exam: Normal Bowel Sounds, Soft. absent: Tenderness - Neurological Exam Neurological exam: Alert, Oriented x3 - Psychiatric Exam Psychiatric exam: Normal Affect, Normal Mood - Skin Skin Exam: Intact, Rash, Warm Results - Vital Signs Recent Vital Signs: Last Vital Signs Temp 98.5 F 11/09/16 19:58 Pulse 81 11/10/16 00:37 Resp 18 11/09/16 19:58 BP 130/80 11/09/16 21:56 Pulse Ox - Labs Result Diagrams: 11/10/16 07:00 11/10/16 07:00 Labs: Laboratory Results - last 24 hr 11/10/16 07:00 WBC 4.9 D RBC 2.74 L Hgb 8.1 L Hct 25.4 L MCV 92.7 MCH 29.6 MCHC 31.9 RDW 14.1 Plt Count 169 MPV 10.0 Gran % 77.0 H Lymph % (Auto) 7.5 L [place] % (Auto) 12.2 H Eos % (Auto) 3.3 Baso % (Auto) 0.0 Gran # 3.78 Lymph # 0.4 L [place] # 0.6 Eos # 0.2 Baso # 0.00 Sodium 138 Potassium 4.3 Chloride 106 Carbon Dioxide 22 Anion Gap 14 BUN 93 H Creatinine 6.9 H Est GFR ( Amer) 8 Est GFR (Non-Af Amer) 6 Random Glucose 128 H Calcium 8.4 Total Bilirubin 0.3 AST 18 ALT 21 Alkaline Phosphatase 49 Total Protein 5.7 L Albumin 2.5 L Globulin 3.1 Albumin/Globulin Ratio 0.8 L Assessment & Plan - Assessment and Plan (Free Text) Assessment: 46F, pmh of CHF, HTN, HLD, CABG, CKD s/p Cardiac Cath w/stent day #6. In TRCU for monitoring and physical therapy. Plan: S/P Cardiac Cath Cario Consult - Dr. Markham - Help appreciated. End-Stage Renal Disease: Bun/Cr - 93/6.9 11/[address] Flores - Help appreciated. -will need AV fistula and will discuss with cardio when it could be done given that she is on dual platelet therapy COPD: Duonebs q8h kelsi Duonebs q2h prn Hyperphosphatemia: Renagel 2400 mg po wm Coronary Artery Disease: Plavix 75 mg po qd Lipitor 40 mg po din Aspirin 81 mg po qd HTN: controlled Lopressor 25 mg po bid Hydralazine 25 mg po tid Diabetes Mellitus: Glucose - <200 Accuchecks Humalog sliding scale Levemir 14 units sc bid Peripheral neuropathy: Neurontin 300 mg po BID Abdominal Pain: CT Abd/Pelvis - mod BL effusions and severe diffuse anasarca - 2mm nonobstructing stone in the left interpolar region - please see full report Percocet prn for pain Constipation: Lactulose 20gm daily Miralax 17gm BID Colace 100mg BID Rash Back/legs: stopped morphine Hydrocortizone topical Benedryl 25mg q8 prn Prophylactic Measures: GI: Pepcid 20 mg po daily DVT: hperarin 5000 units sc q8h Vitamin D 2000 units iu po qd Tylenol 650 mg po q6h prn for fever > 100.4 - Date & Time Date: 11/10/16 Time: 07:10 <Faith Leavitt - Last Filed: 11/14/16 13:08> Results - Vital Signs Recent Vital Signs: Last Vital Signs Temp 98.7 F 11/14/16 06:00 Pulse 78 11/14/16 06:00 Resp 20 11/14/16 06:00 BP 135/47 L 11/14/16 06:00 Pulse Ox 98 11/14/16 06:00 - Labs Result Diagrams: 11/13/16 15:30 11/13/16 15:30 Labs: Laboratory Results - last 24 hr 11/13/16 11/13/16 11/13/16 04:38 11:54 15:30 WBC 6.0 D RBC 2.77 L Hgb 8.2 L Hct 25.7 L MCV 92.8 MCH 29.6 MCHC 31.9 RDW 13.8 Plt Count 202 MPV 9.5 Sodium 137 Potassium 4.6 Chloride 106 Carbon Dioxide 23 Anion Gap 13 BUN 85 H Creatinine 6.9 H Est GFR ( Amer) 8 Est GFR (Non-Af Amer) 6 POC Glucose (mg/dL) 143 H 104 Random Glucose 117 H Calcium 7.9 L Phosphorus 5.6 H Magnesium 2.5 H Total Bilirubin 0.3 AST 25 ALT 20 Alkaline Phosphatase 46 Total Protein 5.8 Albumin 2.6 L Globulin 3.2 Albumin/Globulin Ratio 0.8 L 11/13/16 11/14/16 21:12 11:09 WBC RBC Hgb Hct MCV MCH MCHC RDW Plt Count MPV Sodium Potassium Chloride Carbon Dioxide Anion Gap BUN Creatinine Est GFR ( Amer) Est GFR (Non-Af Amer) POC Glucose (mg/dL) 178 H 179 H Random Glucose Calcium Phosphorus Magnesium Total Bilirubin AST ALT Alkaline Phosphatase Total Protein Albumin Globulin Albumin/Globulin Ratio Attending/Attestation - Attestation I have personally seen and examined this patient.: Yes I have fully participated in the care of the patient.: Yes I have reviewed all pertinent clinical information: Yes Notes (Text): Patient seen and examined with the resident. Agree with the above note with the following additions/ exceptions: This is 46 year old female with history of obesity, IDDM, HTN, CAD s/p CABG, CKD secondary to nephrotic syndrome, cardiomyopathy who got admitted for evaluation of shortness of breath most likely due to CHF exacerbation due to systolic dysfunction (ef 21%). She underwent cardiac cath and LAD stent was placed. Lasix drip was stopped yesterday as she had worsening of renal function. SOB and leg edema persists. Back pain has impoved. Reviewed CT lumbar spine. Continue aspirin and Plavix. Urine output is adequate so far. Plan for possible HD. Diabetes and hypertension is better controlled. She needs outpatient AV fistula placement in the future. Upon discharge patient will follow up with Dr Sunny De La Cruz.
[2016-11-10] MEDS ORDERED: Albuterol-Ipratrop 3 mg / 0.5 (3 ml) UD IH PRN (17:02)
--- NOTE | 2016-11-10 17:41 | CP.PCM.CON ---
History of Present Illness - History of Present Illness History of Present Illness: 46 year old female with PMH of HTN, DM, CAD S/P CABG, chronic renal failure, chronic foot ulcer on the left, dyslipidemia, COPD, morbid obesity with BMI 48 was initially admitted in [facility] ([facility] for shortness of breath and she was found to have acute coronary syndrome and she underwent PCI with stent placement in the LAD. She is now transferred to [facility] for physical therapy. Prior to [facility], she was given morphine for pain and she apparently developed a pruritic rash on the trunk. Infectious Diseases consult is requested to further evaluate and manage. The patient states that she does not want systemic steroids. She still has the pruritus, mostly in the trunk (front and back), but also has some on the arms, none on the legs. She denies fever or chills, no nausea or vomiting currently, no headache or dizziness, no diarrhea, no dysuria , no SOB, no chest pain, no cough or colds, no sore throat. Review of Systems - Review of Systems All systems: reviewed and no additional remarkable complaints except (as per HPI ) Past Patient History - Infectious Disease Hx of Infectious Diseases: None - Tetanus Immunizations Tetanus Immunization: Unknown - Past Medical History & Family History Past Medical History?: Yes Pertinent Family History: DM and liver cancer - Past Social History Smoking Status: Never Smoked Alcohol: None Drugs: Denies Home Situation {Lives}: With Family - CARDIAC Hx Cardiac Disorders: Yes Hx Hypertension: Yes - PULMONARY Hx Respiratory Disorders: Yes Hx Asthma: Yes - NEUROLOGICAL Hx Neurological Disorder: Yes (NEUROPATHY) Other/Comment: chronic b/l legs and foot burning pain - HEENT Hx HEENT Problems: Yes (eyeglasses) - RENAL Hx Chronic Kidney Disease: Yes Other/Comment: Renal insufficiency -2 years. 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 - ENDOCRINE/METABOLIC Hx Diabetes Mellitus Type 1: Yes - HEMATOLOGICAL/ONCOLOGICAL Hx Blood Transfusions: Yes Hx Blood Transfusion Reaction: No - INTEGUMENTARY Hx Dermatological Problems: No - MUSCULOSKELETAL/RHEUMATOLOGICAL Hx Falls: No - GASTROINTESTINAL Hx Gastrointestinal Disorders: No - GENITOURINARY/GYNECOLOGICAL Hx Genitourinary Disorders: No - PSYCHIATRIC Hx Psychophysiologic Disorder: Yes Hx Depression: Yes Hx Emotional Abuse: No Hx Physical Abuse: No Hx Substance Use: No - SURGICAL HISTORY Hx Surgeries: Yes - ANESTHESIA Hx Anesthesia Reactions: No Hx Malignant Hyperthermia: No Meds Allergies/Adverse Reactions: Allergies Allergy/AdvReac Type Severity Reaction Status Date / Time morphine Allergy RASH Verified 11/09/16 20:56 anesthesia AdvReac VOMITING Uncoded 11/09/16 20:56 - Medications Medications: Current Medications Acetaminophen (Tylenol 325mg Tab) 650 mg PO Q6H PRN; Protocol PRN Reason: Fever >100.4 F Albuterol/Ipratropium (Duoneb 3 Mg/0.5 Mg (3 Ml) Ud) 3 ml IH [id number] SELWYN PRN Reason: Protocol Last Admin: 11/09/16 21:09 Dose: 3 ml Aspirin (Ecotrin) 81 mg PO DAILY SELWYN PRN Reason: Protocol Atorvastatin Calcium (Lipitor) 40 mg PO DIN SELWYN PRN Reason: Protocol Cholecalciferol (Vitamin D) 2,000 iu PO DAILY SELWYN PRN Reason: Protocol Clopidogrel Bisulfate (Plavix) 75 mg PO DAILY SELWYN PRN Reason: Protocol Docusate Sodium (Colace) 100 mg PO BID SELWYN PRN Reason: Protocol Last Admin: 11/09/16 21:53 Dose: 100 mg Famotidine (Pepcid) 20 mg PO DAILY SELWYN PRN Reason: Protocol Gabapentin (Neurontin) 300 mg PO BID SELWYN PRN Reason: Protocol Last Admin: 11/09/16 21:57 Dose: 300 mg Heparin Sodium (Porcine) (Heparin) 5,000 units SC BID SELWYN PRN Reason: Protocol Hydralazine HCl (Apresoline) 25 mg PO TID SELWYN PRN Reason: Protocol Last Admin: 11/09/16 21:52 Dose: 25 mg Hydrocortisone (Cortizone 1% Cream) 0 gm TOP BID SELWYN PRN Reason: Protocol Last Admin: 11/09/16 21:53 Dose: Not Given Insulin Detemir (Levemir) 28 unit SC Q12 SELWYN PRN Reason: Protocol Insulin Human Lispro (Humalog Med) 0 units SC ACHS SELWYN PRN Reason: Protocol Metoprolol Tartrate (Lopressor) 25 mg PO BID SELWYN PRN Reason: Protocol Last Admin: 11/09/16 21:56 Dose: 25 mg Morphine Sulfate (Morphine) 2 mg IM Q4H PRN; Protocol PRN Reason: Pain, severe (8-10) Morphine Sulfate (Morphine) 1 mg IVP Q4H PRN; Protocol PRN Reason: Pain, moderate (4-7) Ondansetron HCl (Zofran Inj) 4 mg IVP Q4H PRN; Protocol PRN Reason: Nausea/Vomiting Oxycodone/Acetaminophen (Percocet 5/325 Mg Tab) 1 tab PO Q4H PRN PRN Reason: Pain, severe (8-10) Stop: 11/12/16 21:39 Last Admin: 11/09/16 21:57 Dose: 1 tab Polyethylene Glycol (Miralax) 17 gm PO BID SELWYN PRN Reason: Protocol Last Admin: 11/09/16 21:56 Dose: Not Given Sevelamer HCl (Renagel) 2,400 mg PO WM SELWYN PRN Reason: Protocol Sodium Chloride ([place] Nasal [place]) 0 ml NS Q6H PRN; Protocol PRN Reason: Nasal congestion Physical Exam - Constitutional Appears: Non-toxic, No Acute Distress - Head Exam Head Exam: NORMAL INSPECTION - ENT Exam ENT Exam: Mucous Membranes Moist - Neck Exam Neck exam: Negative for: Lymphadenopathy, Meningismus - Respiratory Exam Respiratory Exam: Decreased Breath Sounds - Cardiovascular Exam Cardiovascular Exam: +S1, +S2 - GI/Abdominal Exam GI & Abdominal Exam: Soft. absent: Tenderness - Skin Skin Exam: Rash (maculopapular on the ventral and posterior trunk, diffuse, blanching) Results - Vital Signs Recent Vital Signs: Last Vital Signs Temp 98.5 F 11/09/16 19:58 Pulse 81 11/09/16 19:58 Resp 18 11/09/16 19:58 BP 130/80 11/09/16 21:56 Pulse Ox - Labs Result Diagrams: 11/10/16 07:00 11/10/16 07:00 Assessment & Plan - Assessment and Plan (Free Text) Plan: Assessment PRobable drug-related maculopapular rash, probably related to morphine HTN DM CAD S/P CABG chronic renal failure chronic foot ulcer on the left dyslipidemia COPD morbid obesity with BMI 48 Plan Started patient on Benadryl prn and Hydrodortisone cream and will monitor clinical response; should avoid morphine Will follow clinically
--- NOTE | 2016-11-10 22:38 | CP.PCM.PN ---
Subjective - Date & Time of Evaluation Date of Evaluation: 11/10/16 Time of Evaluation: 22:40 - Subjective Subjective: Nephrology f/u note: Patient denies shortness of breath on oxygen (3L via [place]); is getting out of bed and moving around; rash over legs improved; appetite is decreased; Objective - Vital Signs/Intake and Output Vital Signs (last 24 hours): Temp Pulse Resp BP Pulse Ox 98.5 F 81 18 130/80 11/09/16 19:58 11/10/16 00:37 11/09/16 19:58 11/09/16 21:56 Intake and Output: 11/10/16 11/11/16 18:59 06:59 Intake Total 420 Balance 420 - Medications Medications: Current Medications Acetaminophen (Tylenol 325mg Tab) 650 mg PO Q6H PRN; Protocol PRN Reason: Fever >100.4 F Albuterol/Ipratropium (Duoneb 3 Mg/0.5 Mg (3 Ml) Ud) 3 ml IH Q2H PRN PRN Reason: Shortness of Breath Albuterol/Ipratropium (Duoneb 3 Mg/0.5 Mg (3 Ml) Ud) 3 ml IH Q8 SELWYN PRN Reason: Protocol Aspirin (Ecotrin) 81 mg PO 0800 SELWYN PRN Reason: Protocol Last Admin: 11/10/16 08:27 Dose: 81 mg Atorvastatin Calcium (Lipitor) 40 mg PO DIN SELWYN PRN Reason: Protocol Last Admin: 11/10/16 17:36 Dose: 40 mg Cholecalciferol (Vitamin D) 2,000 iu PO DAILY SELWYN PRN Reason: Protocol Last Admin: 11/10/16 09:58 Dose: 2,000 iu Clopidogrel Bisulfate (Plavix) 75 mg PO 0800 SELWYN PRN Reason: Protocol Last Admin: 11/10/16 08:28 Dose: 75 mg Diphenhydramine HCl (Benadryl) 50 mg PO Q8 PRN PRN Reason: Allergy symptoms Docusate Sodium (Colace) 100 mg PO BID SELWYN PRN Reason: Protocol Last Admin: 11/10/16 17:35 Dose: 100 mg Famotidine (Pepcid) 20 mg PO DAILY SELWYN PRN Reason: Protocol Last Admin: 11/10/16 09:56 Dose: 20 mg Gabapentin (Neurontin) 300 mg PO BID SELWYN PRN Reason: Protocol Last Admin: 11/10/16 17:36 Dose: 300 mg Heparin Sodium (Porcine) (Heparin) 5,000 units SC 0600,1800 [facility] PRN Reason: Protocol Last Admin: 11/10/16 17:43 Dose: 5,000 units Hydralazine HCl (Apresoline) 25 mg PO TID [facility] PRN Reason: Protocol Last Admin: 11/10/16 17:40 Dose: 25 mg Hydrocortisone (Cortizone 1% Cream) 0 gm TOP BID [facility] PRN Reason: Protocol Last Admin: 11/10/16 17:38 Dose: 1 dose Insulin Detemir (Levemir) 28 unit SC Q12 [facility] PRN Reason: Protocol Last Admin: 11/10/16 22:28 Dose: Not Given Insulin Human Lispro (Humalog Med) 0 units SC ACHS [facility] PRN Reason: Protocol Last Admin: 11/10/16 22:16 Dose: Not Given Lactulose (Enulose) 20 gm PO HS [facility] Last Admin: 11/10/16 17:43 Dose: 20 gm Metoprolol Tartrate (Lopressor) 25 mg PO 0800,1500 [facility] PRN Reason: Protocol Last Admin: 11/10/16 15:42 Dose: 25 mg Ondansetron HCl (Zofran Inj) 4 mg IVP Q4H PRN; Protocol PRN Reason: Nausea/Vomiting Oxycodone/Acetaminophen (Percocet 5/325 Mg Tab) 1 tab PO Q4H PRN PRN Reason: Pain, severe (8-10) Stop: 11/12/16 21:39 Last Admin: 11/10/16 15:42 Dose: 1 tab Polyethylene Glycol (Miralax) 17 gm PO BID [facility] PRN Reason: Protocol Last Admin: 11/10/16 17:35 Dose: 17 gm Sevelamer HCl (Renagel) 2,400 mg PO WM [facility] PRN Reason: Protocol Last Admin: 11/10/16 17:35 Dose: 2,400 mg Sodium Chloride ([place] Nasal [place]) 0 ml NS Q6H PRN; Protocol PRN Reason: Nasal congestion - Labs Labs: 11/10/16 07:00 11/10/16 07:00 - Constitutional Appears: Non-toxic, No Acute Distress - Head Exam Head Exam: NORMAL INSPECTION - Eye Exam Eye Exam: Normal appearance - ENT Exam ENT Exam: Mucous Membranes Moist - Neck Exam Additional comments: Large neck; - Respiratory Exam Respiratory Exam: Clear to Ausculation Bilateral, NORMAL BREATHING PATTERN - Cardiovascular Exam Cardiovascular Exam: REGULAR RHYTHM, +S1, +S2 - GI/Abdominal Exam GI & Abdominal Exam: Soft. absent: Distended, Tenderness - Extremities Exam Additional comments: Bilateral lower leg with moderate edema; - Neurological Exam Neurological Exam: Alert, Awake Additional comments: Asterixis of outstretched dorsiflexed hands; - Psychiatric Exam Psychiatric exam: Normal Affect, Normal Mood - Skin Skin Exam: Warm. absent: Cyanosis Assessment and Plan (1) Acute renal failure (ARF) Assessment & Plan: MAC on CKD V - CKD likely secondary to diabetic nephropathy with nephrotic range proteinuria (degree of proteinuria masked by degree of renal failure); current worsening attributed to diuresis but patient had already been close to needing dialysis; now with uremic symptoms; would have liked to start HD with AVF/AVG but will likely need to start via catheter; Relatively stable electrolyte status and stable respiratory status despite volume excess; no urgent need to start HD but will discuss with patient regarding starting during her TCU stay; Status: Acute (2) Congestive heart failure (CHF) Status: Acute (3) Acute non-ST segment elevation myocardial infarction Assessment & Plan: CAD s/p CABG, now with LAD stent; cath does not appear to be contributory to worsening renal failure (started several days later); Status: Acute (4) Diabetes Assessment & Plan: On levemir 28 u q12h; need to monitor for hypoglycemia in setting of worsening renal function; Status: Chronic (5) Hypertension Assessment & Plan: Controlled, on hydralazine and metoprolol, continue; Status: Chronic
[2016-11-11] MEDS: Albuterol-Ipratrop 3 mg / 0.5 (3 ml) UD IH SCH ×4 (00:10→23:26)
[2016-11-11] MEDS: Insulin Lispro (humaLOG) MEDIUM Coverage SC SCH ×4 (06:41→21:50)
[2016-11-11 09:06] LABS: ADD MANUAL DIFF? NO
[2016-11-11 09:10] LABS: EOS # 0.2 (0.0-0.7); EOS % 3.5 % (1.5-5.0); GRAN # 3.44 (1.4-6.5); HEMATOCRIT 27.2 % (36.0-48.0); LYMPH # 0.5 (1.2-3.4); LYMPH % 11.7 % (22.0-35.0); MEAN CELL VOLUME 94.1 fL (80.0-105.0); MEAN CORPUSCULAR HEMOGLOBIN 29.8 pg (25.0-35.0); MEAN CORPUSCULAR HGB CONC 31.6 g/dl (31.0-37.0); MEAN PLATELET VOLUME 9.9 fl (7.0-11.0); MONO # 0.4 (0.1-0.6); MONO % 8.8 % (1.0-6.0); PLATELET COUNT 171 10^3/uL (120.0-450.0); RED CELL DISTRIBUTION WIDTH 14.2 % (11.5-14.5); WHITE BLOOD COUNT 4.5 10^3/ul (4.5-11.0)
[2016-11-11 09:19] LABS: ALB/GLOB RATIO 0.9 (1.1-1.8); BILIRUBIN,TOTAL 0.3 mg/dL (0.2-1.3); CALCIUM 8.6 mg/dL (8.4-10.5); MAGNESIUM 2.4 mg/dL (1.7-2.2); PHOSPHOROUS 6.1 mg/dL (2.5-4.5); POTASSIUM 4.4 mmol/L (3.6-5.0); TOTAL PROTEIN 6.2 g/dL (5.8-8.3)
[2016-11-11] MEDS: Oxycodone/Acetaminophen 5/325 mg Tab PO PRN ×2 (10:29→21:48)
[2016-11-11] MEDS: Hydrocortisone 1% Cream (30 GM) TOP SCH ×2 (10:43→18:42)
[2016-11-11] MEDS: POLYETHYLENE GLYCOL 3350 17 GM/Dose PACKET PO SCH ×2 (10:47→18:45)
[2016-11-11] MEDS: Insulin Detemir 100 units/ml Vial (Levemir) SC SCH ×2 (10:47→21:49)
--- NOTE | 2016-11-11 14:09 | PN ---
DATE: 11/11/2016 The patient seen in the transitional care unit. She is complaining of mild dyspnea as well as lower extremity pain that she states is preventing her from ambulating. Her voice sounds hoarse today, but she denies any cough. There is no nausea or vomiting. Appetite does appear to be somewhat decrease d, however. PHYSICAL EXAMINATION: VITAL SIGNS: Blood pressure is 124/57, heart rate 80, oral temperature is 98 degrees, respiratory ra te is 18, oxygen saturation 92% on room air. I's and O's were not strictly documented. HEENT: The patient was normocephalic and atraumatic without any sinus tenderness. NECK: Supple with a full range of motion. Trachea was midline and freely movable. I could not appr eciate any jugular venous distention secondary to the patient's body habitus. CHEST: Lung ryan had distant breath sounds, but there was no wheezing. Diaphragmatic excursion as well as airflow into both lung ryan appeared to be bilaterally symmetrical. CARDIAC: Had a regular rate and rhythm without any rubs. ABDOMEN: Soft with normoactive bowel sounds in all 4 quadrants. There were no masses, pulsatile or otherwise. There was no rebounding, guarding or rigidity. I was unable to appreciate any organomega ly. EXTREMITIES: Notable for edema in all limbs consistent with anasarca. NEUROLOGIC: The patient did have mild asterixis. LABORATORY STUDIES: White count is 4.5, H and H is 8.6/27.2 with a platelet count of 171,000. There were 76% neutrophils, 12% lymphocytes, 9% monocytes, 4% eosinophils. Sodium is 140, potassium is 4. 4, chloride 107, bicarbonate 26, BUN/creatinine is 95/7.4 with a glucose of 130. Calcium is 8.6, but corrects to 9.4 since albumin is 2.9. Phosphorus is 6.1. There is no new imaging data to report. IMPRESSION AND PLAN: The patient is a 46-year-old obese female (body mass index 48 kg/meters squared ) with a history of type 2 diabetes mellitus that is insulin-dependent and uncontrolled with nephroti c syndrome, presumed secondary to diabetic nephropathy, hypertension, dyslipidemia, coronary artery d isease with history of coronary artery bypass graft, decreased left ventricular systolic function wit h an ejection fraction of 27%, status post cardiac catheterization for abnormal stress test with plac ement of stent, chronic obstructive pulmonary disease, obstructive sleep apnea for which she is on Bi PAP at home, chronic left lower extremity ulceration, who is having progressive deterioration in her renal function and has now developed uremic symptomatology. 1. I had a lengthy discussion with the patient and I explained to her that her current edema and blas sarca are preventing her from being ambulatory and making any progress with respect to her overall he althcare and physical therapy, but attempts to diurese her have resulted in worsening renal function (consistent with progressive diabetic nephropathy as well as cardiorenal syndrome). 2. In light of this and given the fact that the patient is inexorably headed to dialysis dependence within the next several months anyways, the wisest course of action would be to initiate hemodialysis now so that we can begin to address her hypervolemia and she can make gains with physical therapy. 3. I will ask interventional radiology to place a dialysis catheter in the patient tomorrow and she will have her first hemodialysis session tomorrow. We will check coagulation studies tomorrow as wel l as CBC and CMP and hepatitis serology. 4. At the patient's request, I will reach out to her sister to explain the above course of action. 5. The patient will require placement in an outpatient hemodialysis facility thrice weekly. 6. When cleared by cardiology, she will also require an arteriovenous fistula to be placed. She is not a candidate for peritoneal dialysis on account of the fact that she has a cat at home that is oniel e range to her small apartment and what sounds like numerous roaches at home. 7. For afterload reduction in this patient with decreased left ventricular systolic function, contin ue hydralazine 25 mg orally 3 times a day. 8. For her known coronary artery disease, continue dual antiplatelet therapy with aspirin as well as clopidogrel. The patient also remains on atorvastatin as well as metoprolol. 9. She continues to be hyperphosphatemic and for now, we will continue her on the Renagel 800 mg 3 t ablets orally with each meal. 10. For deep venous thrombosis prophylaxis in this patient at risk by virtue of her obesity and the fact that she is sedentary and with nephrotic syndrome, continue heparin 5000 units subcutaneously ev marilyn 8 hours. 11. Once the patient has started hemodialysis, we can convert hydralazine to an angiotensin receptor cristhian such as valsartan 160 mg daily since these are non-dialyzable. The above was discussed with the patient as well as her mother at bedside. Review of systems, past medical history, social history and family history were all reviewed and ther e were no new changes. Gary Flores MD cc: [id number] TT: 11/11/2016 14:09:01 Confirmation # [id number] Dictation # [id number]
[2016-11-12] MEDS: Insulin Lispro (humaLOG) MEDIUM Coverage SC SCH ×4 (06:37→21:36)
[2016-11-12] MEDS: Albuterol-Ipratrop 3 mg / 0.5 (3 ml) UD IH SCH ×3 (07:26→23:45)
[2016-11-12 07:35] LABS: PH,URINE 5.5 (4.7-8.0); URINE APPEARANCE SL CLOUDY (CLEAR); URINE BILIRUBIN NEGATIVE (NEGATIVE); URINE BLOOD TRACE-LYSED (NEGATIVE); URINE COLOR YELLOW (YELLOW); URINE GLUCOSE (UA) 100 mg/dL (NEGATIVE); URINE KETONE NEGATIVE (NEGATIVE); URINE LEUKOCYTE ESTERASE NEGATIVE Leu/uL (NEGATIVE); URINE PROTEIN >=300 mg/dL (<30 mg/dL); URINE UROBILINOGEN 0.2 E.U./dL (<1 E.U./dL)
[2016-11-12 07:49] LABS: URINE WBC 0 - 2 /hpf (0-6)
[2016-11-12 07:50] LABS: URINE BACTERIA FEW (NEG)
--- NOTE | 2016-11-12 10:27 | PN ---
DATE: 11/12/2016 SUBJECTIVE: The patient is in the TCU. PHYSICAL EXAMINATION: VITAL SIGNS: Blood pressure is 127/40, heart rate is in the 60s. NECK: Negative JVD. LUNGS: Without rales. HEART: Reveals S1, S2. EXTREMITIES: Positive edema noted. LABORATORY DATA: The BUN and creatinine are 95 and 7.4, the glucose is 193. IMPRESSION: 1. Progressive renal insufficiency. 2. Stable angina, status post percutaneous transluminal coronary angioplasty and stent of the anasto motic site of the left internal mammary artery to the left anterior descending. 3. History of coronary artery bypass surgery. 4. Diabetes mellitus. 5. Obesity. Given these findings, the patient will need dialysis soon. The patient is scheduled for access proce dure today. Austin Markham MD cc: [facility] TT: 11/12/2016 10:26:50 Confirmation # [id number] Dictation # [id number] tn
--- NOTE | 2016-11-12 13:35 | CP.PCM.PN ---
<Wade Alvarez - Last Filed: 11/12/16 21:07> Subjective - Date & Time of Evaluation Date of Evaluation: 11/12/16 Time of Evaluation: 20:00 - Subjective Subjective: This is a 46 year old female with past medical history notable for CAD s/p CABG , recent cath w/stent, chronic renal insufficiency, COPD, DM, HLD, and HTN who presented TCU after hospitalization. This morning she underwent a permacath procedure for her first dialysis session in the afternoon. After dialysis, she is feeling good, but tired. She is scheduled for dialysis tomorrow and Wednesday. Currently, she complains of back pain, constipation, and pruritus on her legs. She denies headaches, fevers, chills, chest pain, or difficulty. Objective - Vital Signs/Intake and Output Vital Signs (last 24 hours): Temp Pulse Resp BP Pulse Ox 98 F 59 L 20 127/40 L 92 L 11/11/16 10:00 11/11/16 23:23 11/11/16 10:00 11/11/16 18:41 11/11/16 10:00 Intake and Output: 11/12/16 11/12/16 06:59 18:59 Intake Total 360 Balance 360 - Medications Medications: Current Medications Acetaminophen (Tylenol 325mg Tab) 650 mg PO Q6H PRN; Protocol PRN Reason: Fever >100.4 F Albuterol/Ipratropium (Duoneb 3 Mg/0.5 Mg (3 Ml) Ud) 3 ml IH Q2H PRN PRN Reason: Shortness of Breath Albuterol/Ipratropium (Duoneb 3 Mg/0.5 Mg (3 Ml) Ud) 3 ml IH Q8 KELSI PRN Reason: Protocol Last Admin: 11/12/16 07:26 Dose: Not Given Aspirin (Ecotrin) 81 mg PO 0800 KELSI PRN Reason: Protocol Last Admin: 11/11/16 08:37 Dose: 81 mg Atorvastatin Calcium (Lipitor) 40 mg PO DIN KELSI PRN Reason: Protocol Last Admin: 11/11/16 18:44 Dose: 40 mg Cholecalciferol (Vitamin D) 2,000 iu PO DAILY KELSI PRN Reason: Protocol Last Admin: 11/11/16 10:50 Dose: 2,000 iu Clopidogrel Bisulfate (Plavix) 75 mg PO 0800 KELSI PRN Reason: Protocol Last Admin: 11/11/16 08:40 Dose: 75 mg Diphenhydramine HCl (Benadryl) 50 mg PO Q8 PRN PRN Reason: Allergy symptoms Last Admin: 11/11/16 21:47 Dose: 50 mg Docusate Sodium (Colace) 100 mg PO BID KELSI PRN Reason: Protocol Last Admin: 11/11/16 18:42 Dose: 100 mg Famotidine (Pepcid) 20 mg PO DAILY KELSI PRN Reason: Protocol Last Admin: 11/11/16 10:49 Dose: 20 mg Gabapentin (Neurontin) 300 mg PO BID KELSI PRN Reason: Protocol Last Admin: 11/11/16 18:45 Dose: 300 mg Heparin Sodium (Porcine) (Heparin) 5,000 units SC 0600,1800 KELSI PRN Reason: Protocol Last Admin: 11/11/16 05:26 Dose: 5,000 units Hydralazine HCl (Apresoline) 25 mg PO TID KELSI PRN Reason: Protocol Last Admin: 11/11/16 18:41 Dose: Not Given Hydrocortisone (Cortizone 1% Cream) 0 gm TOP BID KELSI PRN Reason: Protocol Last Admin: 11/11/16 18:42 Dose: 1 dose Insulin Detemir (Levemir) 28 unit SC Q12 KELSI PRN Reason: Protocol Last Admin: 11/11/16 21:49 Dose: 28 unit Insulin Human Lispro (Humalog Med) 0 units SC ACHS KELSI PRN Reason: Protocol Last Admin: 11/12/16 06:37 Dose: Not Given Metoprolol Tartrate (Lopressor) 25 mg PO 0800,1500 [facility] PRN Reason: Protocol Last Admin: 11/11/16 14:36 Dose: 25 mg Ondansetron HCl (Zofran Inj) 4 mg IVP Q4H PRN; Protocol PRN Reason: Nausea/Vomiting Oxycodone/Acetaminophen (Percocet 5/325 Mg Tab) 1 tab PO Q4H PRN PRN Reason: Pain, severe (8-10) Stop: 11/12/16 21:39 Last Admin: 11/11/16 21:48 Dose: 1 tab Polyethylene Glycol (Miralax) 17 gm PO BID KELSI PRN Reason: Protocol Last Admin: 11/11/16 18:45 Dose: Not Given Sevelamer HCl (Renagel) 2,400 mg PO WM KELSI PRN Reason: Protocol Last Admin: 11/11/16 18:46 Dose: 2,400 mg Sodium Chloride (Aiken Nasal [place]) 0 ml NS Q6H PRN; Protocol PRN Reason: Nasal congestion - Labs Labs: 11/11/16 09:00 11/11/16 09:00 - Constitutional Appears: Non-toxic, No Acute Distress - Head Exam Head Exam: ATRAUMATIC - Eye Exam Eye Exam: EOMI - ENT Exam ENT Exam: Mucous Membranes Moist - Respiratory Exam Respiratory Exam: Clear to Ausculation Bilateral, NORMAL BREATHING PATTERN - Cardiovascular Exam Cardiovascular Exam: REGULAR RHYTHM, +S1, +S2. absent: JVD - GI/Abdominal Exam GI & Abdominal Exam: Soft, Tenderness, Normal Bowel Sounds - Extremities Exam Extremities Exam: Joint Swelling, Pedal Edema - Neurological Exam Neurological Exam: Alert, Awake, Oriented x3 - Psychiatric Exam Psychiatric exam: Normal Affect, Normal Mood - Skin Skin Exam: Dry, Intact, Normal Color, Warm Assessment and Plan - Assessment and Plan (Free Text) Assessment: 46F, pmh of CHF, HTN, HLD, CABG, CKD s/p Cardiac Cath w/stent. In TRCU for monitoring and physical therapy. Today had a permacath procedure prior to her first dialysis. Plan: S/P Cardiac Cath Cario Consult - Dr. Markham - Help appreciated. End-Stage Renal Disease: Bun/Cr - 93/6.9 11/10 Bun/Cr - 95/7.4 11/11 Bun/Cr - 85/6.4 11/[address] Flores - Help appreciated. -will need AV fistula and will discuss with cardio when it could be done given that she is on dual platelet therapy -IR placed permacath -underwent first dialysis session today without complication COPD: Duonebs q8h kelsi Duonebs q2h prn Hyperphosphatemia: Renagel 2400 mg po wm Coronary Artery Disease: Plavix 75 mg po qd Lipitor 40 mg po din Aspirin 81 mg po qd HTN: controlled Lopressor 25 mg po bid Hydralazine 25 mg po tid Diabetes Mellitus: Glucose - <200 Accuchecks Humalog sliding scale Levemir 14 units sc bid Peripheral neuropathy: Neurontin 300 mg po BID Abdominal Pain: CT Abd/Pelvis - mod BL effusions and severe diffuse anasarca - 2mm nonobstructing stone in the left interpolar region - please see full report Percocet prn for pain Constipation: Lactulose 20gm daily Miralax 17gm BID Colace 100mg BID Rash Back/legs: improving Hydrocortizone topical Benedryl 25mg q8 prn Prophylactic Measures: GI: Pepcid 20 mg po daily DVT: heparin 5000 units sc q8h Vitamin D 2000 units iu po qd Tylenol 650 mg po q6h prn for fever > 100.4 <Faith Leavitt - Last Filed: 11/15/16 14:44> Objective - Vital Signs/Intake and Output Vital Signs (last 24 hours): Temp Pulse Resp BP Pulse Ox 98.2 F 64 20 118/61 90 L 11/14/16 10:00 11/15/16 14:24 11/14/16 10:00 11/15/16 14:24 11/14/16 10:00 Intake and Output: 11/15/16 11/15/16 06:59 18:59 Intake Total 680 Balance 680 - Medications Medications: Current Medications Acetaminophen (Tylenol 325mg Tab) 650 mg PO Q6H PRN; Protocol PRN Reason: Fever >100.4 F Albuterol/Ipratropium (Duoneb 3 Mg/0.5 Mg (3 Ml) Ud) 3 ml IH Q2H PRN PRN Reason: Shortness of Breath Albuterol/Ipratropium (Duoneb 3 Mg/0.5 Mg (3 Ml) Ud) 3 ml IH [id number] KELSI PRN Reason: Protocol Last Admin: 11/15/16 07:22 Dose: 3 ml Aspirin (Ecotrin) 81 mg PO 0800 KELSI PRN Reason: Protocol Last Admin: 11/15/16 08:02 Dose: 81 mg Atorvastatin Calcium (Lipitor) 40 mg PO DIN KELSI PRN Reason: Protocol Last Admin: 11/14/16 20:12 Dose: 40 mg Cholecalciferol (Vitamin D) 2,000 iu PO DAILY KELSI PRN Reason: Protocol Last Admin: 11/15/16 10:23 Dose: 2,000 iu Clopidogrel Bisulfate (Plavix) 75 mg PO 0800 KELSI PRN Reason: Protocol Last Admin: 11/15/16 08:32 Dose: 75 mg Diphenhydramine HCl (Benadryl) 50 mg PO Q8 PRN PRN Reason: Allergy symptoms Last Admin: 11/11/16 21:47 Dose: 50 mg Docusate Sodium (Colace) 100 mg PO BID [facility] PRN Reason: Protocol Last Admin: 11/15/16 10:18 Dose: 100 mg Famotidine (Pepcid) 20 mg PO DAILY KELSI PRN Reason: Protocol Last Admin: 11/15/16 10:23 Dose: 20 mg Furosemide (Lasix) 80 mg IVP BID [facility] Last Admin: 11/15/16 11:09 Dose: 80 mg Gabapentin (Neurontin) 300 mg PO BID KELSI PRN Reason: Protocol Last Admin: 11/15/16 10:22 Dose: 300 mg Heparin Sodium (Porcine) (Heparin) 5,000 units SC 0600,1800 [facility] PRN Reason: Protocol Last Admin: 11/11/16 05:26 Dose: 5,000 units Hydralazine HCl (Apresoline) 25 mg PO TID KELSI PRN Reason: Protocol Last Admin: 11/15/16 14:24 Dose: 25 mg Hydrocortisone (Cortizone 1% Cream) 0 gm TOP BID KELSI PRN Reason: Protocol Last Admin: 11/15/16 10:18 Dose: 1 dose Insulin Detemir (Levemir) 28 unit SC Q12 KELSI PRN Reason: Protocol Last Admin: 11/15/16 10:20 Dose: 28 unit Insulin Human Lispro (Humalog Med) 0 units SC ACHS KELSI PRN Reason: Protocol Last Admin: 11/15/16 12:14 Dose: Not Given Metoprolol Tartrate (Lopressor) 25 mg PO 0800,1500 [facility] PRN Reason: Protocol Last Admin: 11/15/16 08:03 Dose: 25 mg Ondansetron HCl (Zofran Inj) 4 mg IVP Q4H PRN; Protocol PRN Reason: Nausea/Vomiting Last Admin: 11/14/16 22:04 Dose: 4 mg Oxycodone/Acetaminophen (Percocet 5/325 Mg Tab) 1 tab PO Q4H PRN PRN Reason: Pain, moderate (4-7) Stop: 11/16/16 08:14 Last Admin: 11/14/16 21:54 Dose: 1 tab Polyethylene Glycol (Miralax) 17 gm PO BID [facility] PRN Reason: Protocol Last Admin: 11/15/16 10:22 Dose: 17 gm Sevelamer HCl (Renagel) 2,400 mg PO WM KELSI PRN Reason: Protocol Last Admin: 11/15/16 12:15 Dose: 2,400 mg Sodium Chloride (Aiken Nasal [place]) 0 ml NS Q6H PRN; Protocol PRN Reason: Nasal congestion - Labs Labs: 11/14/16 15:45 11/14/16 15:45 PT 12.0 Seconds (9.9-11.8) H 11/12/16 16:20 INR 1.11 (0.93-1.08) H 11/12/16 16:20 APTT 25.3 Seconds (23.7-30.8) 11/12/16 16:20 Attending/Attestation - Attestation I have personally seen and examined this patient.: Yes I have fully participated in the care of the patient.: Yes I have reviewed all pertinent clinical information, including history, physical exam and plan: Yes Notes (Text): Patient seen and examined with the resident. Agree with the above note with the following additions/ exceptions: This is 46 year old female with history of obesity, IDDM, HTN, CAD s/p CABG, CKD secondary to nephrotic syndrome, cardiomyopathy who got admitted for evaluation of shortness of breath most likely due to CHF exacerbation due to systolic dysfunction (ef 21%). She underwent cardiac cath and LAD stent was placed. SOB and leg edema persists. Back pain has impoved. Reviewed CT lumbar spine. Continue aspirin and Plavix. Patient had permacath placed today and she will have first session of dialysis today. Diabetes and hypertension is better controlled. She needs outpatient AV fistula placement in the future. Patient is on lactulose and miralax. Upon discharge patient will follow up with Dr Sunny De La Cruz. Dr Faith Leavtit
[2016-11-12 16:20] LABS: ADD MANUAL DIFF? NO
--- NOTE | 2016-11-12 16:22 | PN ---
DATE: 11/12/2016 The patient with CKD V, admitted with non-ST elevation ID, previously known CAD status post CABG. Un derwent LAD stent placement after found to be occluded. Now with worsening renal function secondary most likely to diabetic nephropathy. The patient yesterday agreed to initiate dialysis in the settin g of volume overload and worsening renal function. Is still apprehensive about it today, but agrees to the procedure. PHYSICAL EXAMINATION: GENERAL: The patient seen again at the start of initiation of dialysis. Systolic blood pressure is at 159. The patient appears comfortable, no distress. HEENT: Moist mucous membranes. CHEST: Mild rales heard. CARDIOVASCULAR: S1, S2 positive. No murmurs. Elevated JVD. New right internal jugular tunneled di alysis catheter present. ABDOMEN: Obese, soft, nontender. EXTREMITIES: Severely edematous with edema extending to lower abdomen and low back. LABORATORY DATA: Lab findings from yesterday: White count 4.5, hemoglobin 8.6, hematocrit 27.2, dima telets 171. Chemistry: Sodium 140, potassium 4.4, chloride 107, bicarb 22, BUN 95, creatinine 7.4, calcium 8.6, phosphorus 6.1, glucose 130. ASSESSMENT: End-stage renal disease, initiating hemodialysis. First hemodialysis session doing slow dialysis to avoid dialysis disequilibrium. Blood flow rate 200 mL per minute, dialysate flow 300 mL per minute. Concurrent dialysate and blood flow. UF goal of 500 mL on a 2 K, 2.5 calcium, 34 bicar b bath. Anemia secondary to chronic kidney disease. Iron replete. Will benefit from EPO as hemoglo bin is below goal. Chronic kidney disease, mineral bone disease, hyperphosphatemia mild. Continue s evelamer 3 tablets with meals. Will check PTH with morning labs. Hypertension, on hydralazine 25 mg t.i.d., metoprolol 25 mg b.i.d. Will benefit from ultrafiltration on hemodialysis. We will restart diuretics with Lasix 80 mg intravenous push this evening. Will not give tomorrow morning in anticip ation of second hemodialysis session to avoid dropping blood pressure on dialysis. Coronary artery d isease status post coronary artery bypass graft, now status post left anterior descending stent, on a spirin and Plavix. Continue per cardiology recommendations. Diabetes, on Levemir 28 units subQ q.12 hours. No hypoglycemia noted in record, but need to monitor as patient will continue to lose residu al renal function. Kalia Sultana MD cc: [id number] TT: 11/12/2016 16:22:20 Confirmation # [id number] Dictation # [id number]
[2016-11-12 16:46] LABS: ALB/GLOB RATIO 0.8 (1.1-1.8); ALKALINE PHOSPHATASE 54 U/L (38-133); ALT/SGPT 20 U/L (7-56); AST/SGOT 22 U/L (15-39); BILIRUBIN,TOTAL 0.3 mg/dL (0.2-1.3); BLOOD UREA NITROGEN 85 mg/dL (7-21); CARBON DIOXIDE 23 mmol/L (21-33); CHLORIDE 105 mmol/L (98-107); GFR AFRICAN-AMERICAN 8; GLUCOSE,RANDOM 110 mg/dL (70-110); MAGNESIUM 2.3 mg/dL (1.7-2.2); PHOSPHOROUS 4.9 mg/dL (2.5-4.5); POTASSIUM 4.3 mmol/L (3.6-5.0); SODIUM 137 mmol/L (132-148); TOTAL PROTEIN 6.1 g/dL (5.8-8.3)
[2016-11-12 16:59] LABS: GRAN % 87.7 % (50.0-68.0); HEMATOCRIT 26.4 % (36.0-48.0); LYMPH % 6.4 % (22.0-35.0); MEAN CELL VOLUME 96.4 fL (80.0-105.0); MEAN CORPUSCULAR HEMOGLOBIN 29.2 pg (25.0-35.0); MEAN CORPUSCULAR HGB CONC 30.3 g/dl (31.0-37.0); MEAN PLATELET VOLUME 10.9 fl (7.0-11.0); PLATELET COUNT 190 10^3/uL (120.0-450.0); RED CELL DISTRIBUTION WIDTH 13.9 % (11.5-14.5); WHITE BLOOD COUNT 4.7 10^3/ul (4.5-11.0)
[2016-11-12 17:00] LABS: BASO # 0.01 K/mm3 (0.0-2.0); BASO % 0.2 % (0.0-3.0); EOS # 0.1 (0.0-0.7); EOS % 1.9 % (1.5-5.0); GRAN # 4.11 (1.4-6.5); LYMPH # 0.3 (1.2-3.4); MONO # 0.2 (0.1-0.6); MONO % 3.8 % (1.0-6.0)
[2016-11-12 17:06] LABS: INR 1.11 (0.93-1.08); PARTIAL THROMBOPLASTIN TIME 25.3 Seconds (23.7-30.8)
[2016-11-12] MEDS: Hydrocortisone 1% Cream (30 GM) TOP SCH ×2 (18:25→18:38)
[2016-11-12] MEDS: Insulin Detemir 100 units/ml Vial (Levemir) SC SCH ×2 (18:26→21:36)
[2016-11-12] MEDS: POLYETHYLENE GLYCOL 3350 17 GM/Dose PACKET PO SCH ×2 (18:27→18:39)
[2016-11-12] MEDS: Oxycodone/Acetaminophen 5/325 mg Tab PO PRN (21:34)
[2016-11-13] MEDS: Insulin Lispro (humaLOG) MEDIUM Coverage SC SCH ×4 (06:35→23:05)
[2016-11-13] MEDS: Albuterol-Ipratrop 3 mg / 0.5 (3 ml) UD IH SCH ×2 (07:38→21:09)
[2016-11-13] MEDS: Oxycodone/Acetaminophen 5/325 mg Tab PO PRN ×2 (08:39→22:17)
[2016-11-13] MEDS ORDERED: Darbepoetin Alfa 40 mcg/ml Inj IVP ONE (09:38)
[2016-11-13] MEDS: Hydrocortisone 1% Cream (30 GM) TOP SCH ×2 (11:03→18:00)
[2016-11-13] MEDS: POLYETHYLENE GLYCOL 3350 17 GM/Dose PACKET PO SCH ×2 (11:05→18:00)
--- NOTE | 2016-11-13 11:21 | PN ---
DATE: 11/13/2016 The patient participated with physical therapy. No chest pain, but was short of breath. PHYSICAL EXAMINATION: VITAL SIGNS: Blood pressure 111/64, the heart rate is in the 70s. NECK: Negative JVD. LUNGS: Decreased breath sounds. HEART: Revealed S1, S2. EXTREMITIES: Without edema. LABORATORY DATA: Hemoglobin is 8, BUN and creatinine and 85 and 6.4, glucose is 113. IMPRESSION: 1. End-stage renal disease. 2. Stable angina. 3. History of coronary artery bypass surgery. 4. Recent percutaneous transluminal coronary angioplasty and stent of a left anterior descending thr ough a left internal mammary artery graft. 5. Diabetes mellitus. 6. Obesity. PLAN: Given these findings, the patient is for dialysis later today which should help her dyspnea. We will need to continue her Plavix. Austin Markham MD cc: [id number] TT: 11/13/2016 11:20:15 Confirmation # [id number] Dictation # [id number] tn
[2016-11-13] MEDS: Insulin Detemir 100 units/ml Vial (Levemir) SC SCH ×2 (12:33→22:18)
[2016-11-13 16:00] LABS: HEMATOCRIT 25.7 % (36.0-48.0); MEAN CELL VOLUME 92.8 fL (80.0-105.0); MEAN CORPUSCULAR HEMOGLOBIN 29.6 pg (25.0-35.0); MEAN CORPUSCULAR HGB CONC 31.9 g/dl (31.0-37.0); MEAN PLATELET VOLUME 9.5 fl (7.0-11.0); RED CELL DISTRIBUTION WIDTH 13.8 % (11.5-14.5)
[2016-11-13 16:06] LABS: ALB/GLOB RATIO 0.8 (1.1-1.8); BILIRUBIN,TOTAL 0.3 mg/dL (0.2-1.3); CALCIUM 7.9 mg/dL (8.4-10.5); MAGNESIUM 2.5 mg/dL (1.7-2.2); PHOSPHOROUS 5.6 mg/dL (2.5-4.5); POTASSIUM 4.6 mmol/L (3.6-5.0); TOTAL PROTEIN 5.8 g/dL (5.8-8.3)
--- NOTE | 2016-11-13 21:06 | CP.PCM.PN ---
Subjective - Date & Time of Evaluation Date of Evaluation: 11/13/16 Time of Evaluation: 12:00 - Subjective Subjective: Patient working with PT at time of encounter; reporting no hypoxia on ambulating on room air; Objective - Vital Signs/Intake and Output Vital Signs (last 24 hours): Temp Pulse Resp BP Pulse Ox 98.3 F 83 18 149/82 99 11/13/16 06:00 11/13/16 19:22 11/13/16 06:00 11/13/16 19:22 11/13/16 06:00 Intake and Output: 11/13/16 11/14/16 18:59 06:59 Intake Total 420 Balance 420 - Medications Medications: Current Medications Acetaminophen (Tylenol 325mg Tab) 650 mg PO Q6H PRN; Protocol PRN Reason: Fever >100.4 F Albuterol/Ipratropium (Duoneb 3 Mg/0.5 Mg (3 Ml) Ud) 3 ml IH Q2H PRN PRN Reason: Shortness of Breath Albuterol/Ipratropium (Duoneb 3 Mg/0.5 Mg (3 Ml) Ud) 3 ml IH [id number] SELWYN PRN Reason: Protocol Aspirin (Ecotrin) 81 mg PO 0800 SEL[facility]YN PRN Reason: Protocol Last Admin: 11/13/16 08:14 Dose: 81 mg Atorvastatin Calcium (Lipitor) 40 mg PO DIN SELWYN PRN Reason: Protocol Last Admin: 11/13/16 19:25 Dose: 40 mg Cholecalciferol (Vitamin D) 2,000 iu PO DAILY SELWYN PRN Reason: Protocol Last Admin: 11/13/16 11:07 Dose: 2,000 iu Clopidogrel Bisulfate (Plavix) 75 mg PO 0800 SELWYN PRN Reason: Protocol Last Admin: 11/12/16 18:28 Dose: Not Given Diphenhydramine HCl (Benadryl) 50 mg PO Q8 PRN PRN Reason: Allergy symptoms Last Admin: 11/11/16 21:47 Dose: 50 mg Docusate Sodium (Colace) 100 mg PO BID SELWYN PRN Reason: Protocol Last Admin: 11/13/16 19:23 Dose: 100 mg Famotidine (Pepcid) 20 mg PO DAILY [facility]YN PRN Reason: Protocol Last Admin: 11/13/16 11:06 Dose: 20 mg Gabapentin (Neurontin) 300 mg PO BID SELWYN PRN Reason: Protocol Last Admin: 11/13/16 18:00 Dose: 300 mg Heparin Sodium (Porcine) (Heparin) 5,000 units SC 0600,1800 [facility] PRN Reason: Protocol Last Admin: 11/11/16 05:26 Dose: 5,000 units Hydralazine HCl (Apresoline) 25 mg PO TID [facility] PRN Reason: Protocol Last Admin: 11/13/16 19:22 Dose: 25 mg Hydrocortisone (Cortizone 1% Cream) 0 gm TOP BID [facility] PRN Reason: Protocol Last Admin: 11/13/16 18:00 Dose: 1 dose Insulin Detemir (Levemir) 28 unit SC Q12 [facility] PRN Reason: Protocol Last Admin: 11/13/16 12:33 Dose: Not Given Insulin Human Lispro (Humalog Med) 0 units SC ACHS [facility] PRN Reason: Protocol Last Admin: 11/13/16 16:48 Dose: Not Given Metoprolol Tartrate (Lopressor) 25 mg PO 0800,1500 [facility] PRN Reason: Protocol Ondansetron HCl (Zofran Inj) 4 mg IVP Q4H PRN; Protocol PRN Reason: Nausea/Vomiting Oxycodone/Acetaminophen (Percocet 5/325 Mg Tab) 1 tab PO Q4H PRN PRN Reason: Pain, moderate (4-7) Stop: 11/16/16 08:14 Last Admin: 11/13/16 08:39 Dose: 1 tab Polyethylene Glycol (Miralax) 17 gm PO BID [facility] PRN Reason: Protocol Last Admin: 11/13/16 18:00 Dose: Not Given Sevelamer HCl (Renagel) 2,400 mg PO WM [facility] PRN Reason: Protocol Last Admin: 11/13/16 19:29 Dose: 2,400 mg Sodium Chloride ([place] Nasal [place]) 0 ml NS Q6H PRN; Protocol PRN Reason: Nasal congestion - Labs Labs: 11/13/16 15:30 11/13/16 15:30 PT 12.0 Seconds (9.9-11.8) H 11/12/16 16:20 INR 1.11 (0.93-1.08) H 11/12/16 16:20 APTT 25.3 Seconds (23.7-30.8) 11/12/16 16:20 - Constitutional Appears: Well, No Acute Distress - Head Exam Head Exam: NORMAL INSPECTION - Eye Exam Eye Exam: Normal appearance - ENT Exam ENT Exam: Mucous Membranes Moist - Neck Exam Additional comments: large neck circumference - Respiratory Exam Respiratory Exam: NORMAL BREATHING PATTERN Additional comments: mild rhales - Cardiovascular Exam Cardiovascular Exam: REGULAR RHYTHM, +S1, +S2. absent: Gallop - GI/Abdominal Exam GI & Abdominal Exam: Soft. absent: Distended, Tenderness - Extremities Exam Additional comments: Marked bilateral leg edema, somewhat improved; - Neurological Exam Neurological Exam: Alert, Awake - Psychiatric Exam Psychiatric exam: Normal Affect, Normal Mood - Skin Skin Exam: Normal Color, Warm. absent: Cyanosis Assessment and Plan (1) ESRD (end stage renal disease) on dialysis Assessment & Plan: Initiated on HD yesterday after uremic signs/symptoms noted and patient volume overloaded; without complications; 2nd HD session today, for 3 hrs, with somewhat more efficient dialysis settings, UF goal 1L; will give full 3.5 hr HD session tomorrow; Status: Acute (2) Congestive heart failure (CHF) Assessment & Plan: Symptoms improving with UF on HD; will give IV lasix on days off HD; Status: Acute (3) Acute non-ST segment elevation myocardial infarction Assessment & Plan: s/p LAD CEE on recent admission; continue ASA/plavix Status: Acute (4) Diabetes Assessment & Plan: On levemir 28 u q12h; monitor for hypoglycemia with worsened renal function; Status: Chronic (5) Hypertension Assessment & Plan: On hydralazine and metoprolol; BP control adequate for now; will try to avoid sudden drops in BP to preserve residual renal function; Status: Chronic
[2016-11-14] MEDS: Insulin Lispro (humaLOG) MEDIUM Coverage SC SCH ×4 (06:44→21:13)
[2016-11-14] MEDS: Albuterol-Ipratrop 3 mg / 0.5 (3 ml) UD IH SCH ×2 (08:09→21:30)
[2016-11-14] MEDS: Hydrocortisone 1% Cream (30 GM) TOP SCH ×2 (10:19→20:26)
[2016-11-14] MEDS: POLYETHYLENE GLYCOL 3350 17 GM/Dose PACKET PO SCH ×2 (10:19→20:11)
[2016-11-14] MEDS: Insulin Detemir 100 units/ml Vial (Levemir) SC SCH ×2 (10:24→21:51)
[2016-11-14 15:55] LABS: ADD MANUAL DIFF? NO
--- NOTE | 2016-11-14 16:01 | CP.PCM.PN ---
Subjective - Date & Time of Evaluation Date of Evaluation: 11/14/16 Time of Evaluation: 11:20 - Subjective Subjective: Afebrile overnight. Rash on her legs and back have significantly improved and no pruritus currently. Objective - Vital Signs/Intake and Output Vital Signs (last 24 hours): Temp Pulse Resp BP Pulse Ox 98.7 F 78 20 135/47 L 98 11/14/16 06:00 11/14/16 06:00 11/14/16 06:00 11/14/16 06:00 11/14/16 06:00 - Medications Medications: Current Medications Acetaminophen (Tylenol 325mg Tab) 650 mg PO Q6H PRN; Protocol PRN Reason: Fever >100.4 F Albuterol/Ipratropium (Duoneb 3 Mg/0.5 Mg (3 Ml) Ud) 3 ml IH Q2H PRN PRN Reason: Shortness of Breath Albuterol/Ipratropium (Duoneb 3 Mg/0.5 Mg (3 Ml) Ud) 3 ml IH [id number] [facility] PRN Reason: Protocol Last Admin: 11/13/16 21:09 Dose: 3 ml Aspirin (Ecotrin) 81 mg PO 0800 [facility] PRN Reason: Protocol Last Admin: 11/13/16 08:14 Dose: 81 mg Atorvastatin Calcium (Lipitor) 40 mg PO DIN [facility] PRN Reason: Protocol Last Admin: 11/13/16 19:25 Dose: 40 mg Cholecalciferol (Vitamin D) 2,000 iu PO DAILY [facility] PRN Reason: Protocol Last Admin: 11/13/16 11:07 Dose: 2,000 iu Clopidogrel Bisulfate (Plavix) 75 mg PO 0800 [facility] PRN Reason: Protocol Last Admin: 11/12/16 18:28 Dose: Not Given Diphenhydramine HCl (Benadryl) 50 mg PO Q8 PRN PRN Reason: Allergy symptoms Last Admin: 11/11/16 21:47 Dose: 50 mg Docusate Sodium (Colace) 100 mg PO BID [facility] PRN Reason: Protocol Last Admin: 11/13/16 19:23 Dose: 100 mg Famotidine (Pepcid) 20 mg PO DAILY [facility] PRN Reason: Protocol Last Admin: 11/13/16 11:06 Dose: 20 mg Gabapentin (Neurontin) 300 mg PO BID [facility] PRN Reason: Protocol Last Admin: 11/13/16 18:00 Dose: 300 mg Heparin Sodium (Porcine) (Heparin) 5,000 units SC 0600,1800 [facility] PRN Reason: Protocol Last Admin: 11/11/16 05:26 Dose: 5,000 units Hydralazine HCl (Apresoline) 25 mg PO TID [facility] PRN Reason: Protocol Last Admin: 11/13/16 19:22 Dose: 25 mg Hydrocortisone (Cortizone 1% Cream) 0 gm TOP BID [facility] PRN Reason: Protocol Last Admin: 11/13/16 18:00 Dose: 1 dose Insulin Detemir (Levemir) 28 unit SC Q12 [facility] PRN Reason: Protocol Last Admin: 11/13/16 22:18 Dose: 28 unit Insulin Human Lispro (Humalog Med) 0 units SC ACHS [facility] PRN Reason: Protocol Last Admin: 11/14/16 06:44 Dose: 1 units Metoprolol Tartrate (Lopressor) 25 mg PO 0800,1500 [facility] PRN Reason: Protocol Ondansetron HCl (Zofran Inj) 4 mg IVP Q4H PRN; Protocol PRN Reason: Nausea/Vomiting Oxycodone/Acetaminophen (Percocet 5/325 Mg Tab) 1 tab PO Q4H PRN PRN Reason: Pain, moderate (4-7) Stop: 11/16/16 08:14 Last Admin: 11/13/16 22:17 Dose: 1 tab Polyethylene Glycol (Miralax) 17 gm PO BID [facility] PRN Reason: Protocol Last Admin: 11/13/16 18:00 Dose: Not Given Sevelamer HCl (Renagel) 2,400 mg PO WM [facility] PRN Reason: Protocol Last Admin: 11/13/16 19:29 Dose: 2,400 mg Sodium Chloride ([place] Nasal [place]) 0 ml NS Q6H PRN; Protocol PRN Reason: Nasal congestion - Labs Labs: 11/13/16 15:30 11/13/16 15:30 PT 12.0 Seconds (9.9-11.8) H 11/12/16 16:20 INR 1.11 (0.93-1.08) H 11/12/16 16:20 APTT 25.3 Seconds (23.7-30.8) 11/12/16 16:20 - Constitutional Appears: Non-toxic, No Acute Distress - Head Exam Head Exam: NORMAL INSPECTION - Neck Exam Neck Exam: absent: Lymphadenopathy, Meningismus - Respiratory Exam Respiratory Exam: Decreased Breath Sounds - Cardiovascular Exam Cardiovascular Exam: +S1, +S2 - GI/Abdominal Exam GI & Abdominal Exam: Soft. absent: Tenderness - Extremities Exam Additional comments: rash on legs on back have improved significantly and have faded Assessment and Plan - Assessment and Plan (Free Text) Plan: Assessment PRobable drug-related maculopapular rash, probably related to morphine, clinically improved significantly HTN DM CAD S/P CABG chronic renal failure chronic foot ulcer on the left dyslipidemia COPD morbid obesity with BMI 48 Plan Started patient on Benadryl prn and Hydrodortisone cream and will continue to monitor clinical response - topical steroids should not be given for more than 2 weeks; should avoid morphine Will continue to follow clinically
[2016-11-14 16:03] LABS: BASO # 0.01 K/mm3 (0.0-2.0); BASO % 0.2 % (0.0-3.0); EOS # 0.1 (0.0-0.7); EOS % 2.4 % (1.5-5.0); GRAN # 4.15 (1.4-6.5); GRAN % 77.3 % (50.0-68.0); HEMATOCRIT 25.5 % (36.0-48.0); LYMPH # 0.6 (1.2-3.4); LYMPH % 11.9 % (22.0-35.0); MEAN CELL VOLUME 92.7 fL (80.0-105.0); MEAN CORPUSCULAR HEMOGLOBIN 29.5 pg (25.0-35.0); MEAN CORPUSCULAR HGB CONC 31.8 g/dl (31.0-37.0); MEAN PLATELET VOLUME 9.2 fl (7.0-11.0); MONO # 0.4 (0.1-0.6); MONO % 8.2 % (1.0-6.0); PLATELET COUNT 182 10^3/uL (120.0-450.0); RED CELL DISTRIBUTION WIDTH 13.9 % (11.5-14.5); WHITE BLOOD COUNT 5.4 10^3/ul (4.5-11.0)
[2016-11-14 16:15] LABS: ALB/GLOB RATIO 0.8 (1.1-1.8); BILIRUBIN,TOTAL 0.3 mg/dL (0.2-1.3); CALCIUM 7.9 mg/dL (8.4-10.5); MAGNESIUM 2.3 mg/dL (1.7-2.2); PHOSPHOROUS 4.3 mg/dL (2.5-4.5); POTASSIUM 4.4 mmol/L (3.6-5.0); TOTAL PROTEIN 5.9 g/dL (5.8-8.3)
--- NOTE | 2016-11-14 21:14 | CP.PCM.PN ---
<Mahendra Vu - Last Filed: 11/14/16 21:11> Subjective - Date & Time of Evaluation Date of Evaluation: 11/14/16 Time of Evaluation: 09:10 - Subjective Subjective: Dr. Vu PGY 1 Hospitalist Note Patient seen and evaluated at bedside in TCU. She states she is feeling weak after dialysis and has some constipation. She denies any fever, chills, nausea, vomiting, or chest pain. She does complain of some tenderness in dialysis cath area. Objective - Vital Signs/Intake and Output Vital Signs (last 24 hours): Temp Pulse Resp BP Pulse Ox 98.2 F 80 20 169/94 H 90 L 11/14/16 10:00 11/14/16 20:14 11/14/16 10:00 11/14/16 20:14 11/14/16 10:00 Intake and Output: 11/14/16 11/15/16 18:59 06:59 Intake Total 680 Balance 680 - Medications Medications: Current Medications Acetaminophen (Tylenol 325mg Tab) 650 mg PO Q6H PRN; Protocol PRN Reason: Fever >100.4 F Albuterol/Ipratropium (Duoneb 3 Mg/0.5 Mg (3 Ml) Ud) 3 ml IH Q2H PRN PRN Reason: Shortness of Breath Albuterol/Ipratropium (Duoneb 3 Mg/0.5 Mg (3 Ml) Ud) 3 ml IH [id number] KELSI PRN Reason: Protocol Last Admin: 11/14/16 08:09 Dose: 3 ml Aspirin (Ecotrin) 81 mg PO 0800 [facility] PRN Reason: Protocol Last Admin: 11/14/16 08:15 Dose: 81 mg Atorvastatin Calcium (Lipitor) 40 mg PO DIN [facility] PRN Reason: Protocol Last Admin: 11/14/16 20:12 Dose: 40 mg Cholecalciferol (Vitamin D) 2,000 iu PO DAILY [facility] PRN Reason: Protocol Last Admin: 11/14/16 10:17 Dose: 2,000 iu Clopidogrel Bisulfate (Plavix) 75 mg PO 0800 [facility] PRN Reason: Protocol Last Admin: 11/14/16 20:12 Dose: 75 mg Diphenhydramine HCl (Benadryl) 50 mg PO Q8 PRN PRN Reason: Allergy symptoms Last Admin: 11/11/16 21:47 Dose: 50 mg Docusate Sodium (Colace) 100 mg PO BID [facility] PRN Reason: Protocol Last Admin: 11/14/16 20:15 Dose: 100 mg Famotidine (Pepcid) 20 mg PO DAILY [facility] PRN Reason: Protocol Last Admin: 11/14/16 10:18 Dose: 20 mg Gabapentin (Neurontin) 300 mg PO BID [facility] PRN Reason: Protocol Last Admin: 11/14/16 20:11 Dose: 300 mg Heparin Sodium (Porcine) (Heparin) 5,000 units SC 0600,1800 [facility] PRN Reason: Protocol Last Admin: 11/11/16 05:26 Dose: 5,000 units Hydralazine HCl (Apresoline) 25 mg PO TID [facility] PRN Reason: Protocol Last Admin: 11/14/16 20:14 Dose: 25 mg Hydrocortisone (Cortizone 1% Cream) 0 gm TOP BID [facility] PRN Reason: Protocol Last Admin: 11/14/16 20:26 Dose: 1 dose Insulin Detemir (Levemir) 28 unit SC Q12 [facility] PRN Reason: Protocol Last Admin: 11/14/16 10:24 Dose: 28 unit Insulin Human Lispro (Humalog Med) 0 units SC ACHS [facility] PRN Reason: Protocol Last Admin: 11/14/16 17:41 Dose: Not Given Metoprolol Tartrate (Lopressor) 25 mg PO 0800,1500 [facility] PRN Reason: Protocol Last Admin: 11/14/16 20:16 Dose: 25 mg Ondansetron HCl (Zofran Inj) 4 mg IVP Q4H PRN; Protocol PRN Reason: Nausea/Vomiting Last Admin: 11/14/16 09:27 Dose: 4 mg Oxycodone/Acetaminophen (Percocet 5/325 Mg Tab) 1 tab PO Q4H PRN PRN Reason: Pain, moderate (4-7) Stop: 11/16/16 08:14 Last Admin: 11/13/16 22:17 Dose: 1 tab Polyethylene Glycol (Miralax) 17 gm PO BID [facility] PRN Reason: Protocol Last Admin: 11/14/16 20:11 Dose: Not Given Sevelamer HCl (Renagel) 2,400 mg PO WM [facility] PRN Reason: Protocol Last Admin: 11/14/16 20:10 Dose: 2,400 mg Sodium Chloride ([place] Nasal [place]) 0 ml NS Q6H PRN; Protocol PRN Reason: Nasal congestion - Labs Labs: 11/14/16 15:45 11/14/16 15:45 PT 12.0 Seconds (9.9-11.8) H 11/12/16 16:20 INR 1.11 (0.93-1.08) H 11/12/16 16:20 APTT 25.3 Seconds (23.7-30.8) 11/12/16 16:20 - Constitutional Appears: Other (obese) - Head Exam Head Exam: ATRAUMATIC, NORMOCEPHALIC - Eye Exam Eye Exam: EOMI, Normal appearance, PERRL Pupil Exam: NORMAL ACCOMODATION, PERRL - ENT Exam ENT Exam: Mucous Membranes Moist, Normal Exam - Neck Exam Neck Exam: absent: Normal Inspection (cathsite clean and dressed) - Respiratory Exam Respiratory Exam: Clear to Ausculation Bilateral, NORMAL BREATHING PATTERN - Cardiovascular Exam Cardiovascular Exam: REGULAR RHYTHM, +S1, +S2 - GI/Abdominal Exam GI & Abdominal Exam: Soft, Normal Bowel Sounds - Extremities Exam Extremities Exam: Normal Capillary Refill, Pedal Edema. absent: Tenderness - Neurological Exam Neurological Exam: Alert, Awake, CN II-XII Intact - Psychiatric Exam Psychiatric exam: Normal Affect, Normal Mood - Skin Skin Exam: Dry, Intact, Warm Assessment and Plan - Assessment and Plan (Free Text) Assessment: 46F, pmh of CHF, HTN, HLD, CABG, CKD s/p Cardiac Cath w/stent. In TRCU for monitoring and physical therapy. Permacath in place and receiving dialysis. Plan: 1) End-Stage Renal Disease: * Nephrology Consult Dr. Flores - Help appreciated. * will need AV fistula * IR placed permacath * tolerating dialysis well 2) COPD: * Duonebs q8h kelsi and q2h prn 3) Hyperphosphatemia: * resolved * Renagel 2400 mg po wm 4) Coronary Artery Disease: * Cardiology consulted, help appreciated * status post cardiac cath * continue Plavix 75 mg po qd, Lipitor 40 mg po din, Aspirin 81 mg po qd 5) HTN: controlled * continue Lopressor 25 mg po bid and Hydralazine 25 mg po tid 6) Diabetes Mellitus: * Accuchecks * Humalog sliding scale * Levemir 14 units sc bid 7) Peripheral neuropathy: * Neurontin 300 mg po BID 8) Abdominal Pain: * imrpoved * CT Abd/Pelvis: mod BL effusions and severe diffuse anasarca, 2mm nonobstructing stone in the left interpolar region, [please see full report] * Percocet prn for pain 9) Constipation: * Lactulose 20gm daily * Miralax 17gm BID * Colace 100mg BID * soap and water enema after dialysis 10) Rash Back/legs: * improving * continue Hydrocortizone topical and Benedryl 25mg q8 prn Prophylactic Measures: GI: Pepcid 20 mg po daily DVT: heparin 5000 units sc q8h Vitamin D 2000 units iu po qd Tylenol 650 mg po q6h prn for fever > 100.4 Assessment and plan discussed with attending physician <Faith Leavitt B - Last Filed: 11/15/16 14:54> Objective - Vital Signs/Intake and Output Vital Signs (last 24 hours): Temp Pulse Resp BP Pulse Ox 98.2 F 64 20 118/61 90 L 11/14/16 10:00 11/15/16 14:24 11/14/16 10:00 11/15/16 14:24 11/14/16 10:00 Intake and Output: 11/15/16 11/15/16 06:59 18:59 Intake Total 680 Balance 680 - Medications Medications: Current Medications Acetaminophen (Tylenol 325mg Tab) 650 mg PO Q6H PRN; Protocol PRN Reason: Fever >100.4 F Albuterol/Ipratropium (Duoneb 3 Mg/0.5 Mg (3 Ml) Ud) 3 ml IH Q2H PRN PRN Reason: Shortness of Breath Albuterol/Ipratropium (Duoneb 3 Mg/0.5 Mg (3 Ml) Ud) 3 ml IH [id number] KELSI PRN Reason: Protocol Last Admin: 11/15/16 07:22 Dose: 3 ml Aspirin (Ecotrin) 81 mg PO 0800 [facility] PRN Reason: Protocol Last Admin: 11/15/16 08:02 Dose: 81 mg Atorvastatin Calcium (Lipitor) 40 mg PO DIN [facility] PRN Reason: Protocol Last Admin: 11/14/16 20:12 Dose: 40 mg Cholecalciferol (Vitamin D) 2,000 iu PO DAILY [facility] PRN Reason: Protocol Last Admin: 11/15/16 10:23 Dose: 2,000 iu Clopidogrel Bisulfate (Plavix) 75 mg PO 0800 [facility] PRN Reason: Protocol Last Admin: 11/15/16 08:32 Dose: 75 mg Diphenhydramine HCl (Benadryl) 50 mg PO Q8 PRN PRN Reason: Allergy symptoms Last Admin: 11/11/16 21:47 Dose: 50 mg Docusate Sodium (Colace) 100 mg PO BID [facility] PRN Reason: Protocol Last Admin: 11/15/16 10:18 Dose: 100 mg Famotidine (Pepcid) 20 mg PO DAILY [facility] PRN Reason: Protocol Last Admin: 11/15/16 10:23 Dose: 20 mg Furosemide (Lasix) 80 mg IVP BID [facility] Last Admin: 11/15/16 11:09 Dose: 80 mg Gabapentin (Neurontin) 300 mg PO BID [facility] PRN Reason: Protocol Last Admin: 11/15/16 10:22 Dose: 300 mg Heparin Sodium (Porcine) (Heparin) 5,000 units SC 0600,1800 [facility] PRN Reason: Protocol Last Admin: 11/11/16 05:26 Dose: 5,000 units Hydralazine HCl (Apresoline) 25 mg PO TID [facility] PRN Reason: Protocol Last Admin: 11/15/16 14:24 Dose: 25 mg Hydrocortisone (Cortizone 1% Cream) 0 gm TOP BID [facility] PRN Reason: Protocol Last Admin: 11/15/16 10:18 Dose: 1 dose Insulin Detemir (Levemir) 28 unit SC Q12 [facility] PRN Reason: Protocol Last Admin: 11/15/16 10:20 Dose: 28 unit Insulin Human Lispro (Humalog Med) 0 units SC ACHS [facility] PRN Reason: Protocol Last Admin: 11/15/16 12:14 Dose: Not Given Metoprolol Tartrate (Lopressor) 25 mg PO 0800,1500 [facility] PRN Reason: Protocol Last Admin: 11/15/16 08:03 Dose: 25 mg Ondansetron HCl (Zofran Inj) 4 mg IVP Q4H PRN; Protocol PRN Reason: Nausea/Vomiting Last Admin: 11/14/16 22:04 Dose: 4 mg Oxycodone/Acetaminophen (Percocet 5/325 Mg Tab) 1 tab PO Q4H PRN PRN Reason: Pain, moderate (4-7) Stop: 11/16/16 08:14 Last Admin: 11/14/16 21:54 Dose: 1 tab Polyethylene Glycol (Miralax) 17 gm PO BID [facility] PRN Reason: Protocol Last Admin: 11/15/16 10:22 Dose: 17 gm Sevelamer HCl (Renagel) 2,400 mg PO WM [facility] PRN Reason: Protocol Last Admin: 11/15/16 12:15 Dose: 2,400 mg Sodium Chloride ([place] Nasal [place]) 0 ml NS Q6H PRN; Protocol PRN Reason: Nasal congestion - Labs Labs: 11/14/16 15:45 11/14/16 15:45 PT 12.0 Seconds (9.9-11.8) H 11/12/16 16:20 INR 1.11 (0.93-1.08) H 11/12/16 16:20 APTT 25.3 Seconds (23.7-30.8) 11/12/16 16:20 Attending/Attestation - Attestation I have personally seen and examined this patient.: Yes I have fully participated in the care of the patient.: Yes I have reviewed all pertinent clinical information, including history, physical exam and plan: Yes Notes (Text): Patient seen and examined with the resident. Agree with the above note with the following additions/ exceptions: This is 46 year old female with history of obesity, IDDM, HTN, CAD s/p CABG, CKD secondary to nephrotic syndrome, cardiomyopathy who got admitted for evaluation of shortness of breath most likely due to CHF exacerbation due to systolic dysfunction (ef 21%). She underwent cardiac cath and LAD stent was placed. Continue aspirin and Plavix. Patient has been tolerating HD via permacath. She just complains of generalized weakness and tiredness after HD. Diabetes and hypertension is better controlled. She needs outpatient AV fistula placement in the future. Complains of constipation despite getting lactulose and miralax. Will order enema. Upon discharge patient will follow up with Dr Sunny De La Cruz. Dr Faith Leavitt
[2016-11-14] MEDS: Oxycodone/Acetaminophen 5/325 mg Tab PO PRN (21:54)
--- NOTE | 2016-11-14 23:25 | CP.PCM.PN ---
Subjective - Date & Time of Evaluation Date of Evaluation: 11/14/16 Time of Evaluation: 12:00 - Subjective Subjective: Patient denies sob, ambulating on her own; tolerated second HD session well yesterday; Objective - Vital Signs/Intake and Output Vital Signs (last 24 hours): Temp Pulse Resp BP Pulse Ox 98.2 F 80 20 169/94 H 90 L 11/14/16 10:00 11/14/16 20:14 11/14/16 10:00 11/14/16 20:14 11/14/16 10:00 Intake and Output: 11/14/16 11/15/16 18:59 06:59 Intake Total 680 680 Balance 680 680 - Medications Medications: Current Medications Acetaminophen (Tylenol 325mg Tab) 650 mg PO Q6H PRN; Protocol PRN Reason: Fever >100.4 F Albuterol/Ipratropium (Duoneb 3 Mg/0.5 Mg (3 Ml) Ud) 3 ml IH Q2H PRN PRN Reason: Shortness of Breath Albuterol/Ipratropium (Duoneb 3 Mg/0.5 Mg (3 Ml) Ud) 3 ml IH [id number] SELWYN PRN Reason: Protocol Last Admin: 11/14/16 21:30 Dose: Not Given Aspirin (Ecotrin) 81 mg PO 0800 SELWYN PRN Reason: Protocol Last Admin: 11/14/16 08:15 Dose: 81 mg Atorvastatin Calcium (Lipitor) 40 mg PO DIN SELWYN PRN Reason: Protocol Last Admin: 11/14/16 20:12 Dose: 40 mg Cholecalciferol (Vitamin D) 2,000 iu PO DAILY SELWYN PRN Reason: Protocol Last Admin: 11/14/16 10:17 Dose: 2,000 iu Clopidogrel Bisulfate (Plavix) 75 mg PO 0800 SELWYN PRN Reason: Protocol Last Admin: 11/14/16 20:12 Dose: 75 mg Diphenhydramine HCl (Benadryl) 50 mg PO Q8 PRN PRN Reason: Allergy symptoms Last Admin: 11/11/16 21:47 Dose: 50 mg Docusate Sodium (Colace) 100 mg PO BID SELWYN PRN Reason: Protocol Last Admin: 11/14/16 20:15 Dose: 100 mg Famotidine (Pepcid) 20 mg PO DAILY SELWYN PRN Reason: Protocol Last Admin: 11/14/16 10:18 Dose: 20 mg Gabapentin (Neurontin) 300 mg PO BID SELWYN PRN Reason: Protocol Last Admin: 11/14/16 20:11 Dose: 300 mg Heparin Sodium (Porcine) (Heparin) 5,000 units SC 0600,1800 SELWYN PRN Reason: Protocol Last Admin: 11/11/16 05:26 Dose: 5,000 units Hydralazine HCl (Apresoline) 25 mg PO TID SELWYN PRN Reason: Protocol Last Admin: 11/14/16 20:14 Dose: 25 mg Hydrocortisone (Cortizone 1% Cream) 0 gm TOP BID SELWYN PRN Reason: Protocol Last Admin: 11/14/16 20:26 Dose: 1 dose Insulin Detemir (Levemir) 28 unit SC Q12 SELWYN PRN Reason: Protocol Last Admin: 11/14/16 21:51 Dose: 28 unit Insulin Human Lispro (Humalog Med) 0 units SC ACHS SELWYN PRN Reason: Protocol Last Admin: 11/14/16 21:13 Dose: Not Given Metoprolol Tartrate (Lopressor) 25 mg PO 0800,1500 [facility] PRN Reason: Protocol Last Admin: 11/14/16 20:16 Dose: 25 mg Ondansetron HCl (Zofran Inj) 4 mg IVP Q4H PRN; Protocol PRN Reason: Nausea/Vomiting Last Admin: 11/14/16 22:04 Dose: 4 mg Oxycodone/Acetaminophen (Percocet 5/325 Mg Tab) 1 tab PO Q4H PRN PRN Reason: Pain, moderate (4-7) Stop: 11/16/16 08:14 Last Admin: 11/14/16 21:54 Dose: 1 tab Polyethylene Glycol (Miralax) 17 gm PO BID SELWYN PRN Reason: Protocol Last Admin: 11/14/16 20:11 Dose: Not Given Sevelamer HCl (Renagel) 2,400 mg PO WM [facility] PRN Reason: Protocol Last Admin: 11/14/16 20:10 Dose: 2,400 mg Sodium Chloride ([place] Nasal [place]) 0 ml NS Q6H PRN; Protocol PRN Reason: Nasal congestion - Labs Labs: 11/14/16 15:45 11/14/16 15:45 PT 12.0 Seconds (9.9-11.8) H 11/12/16 16:20 INR 1.11 (0.93-1.08) H 11/12/16 16:20 APTT 25.3 Seconds (23.7-30.8) 11/12/16 16:20 - Constitutional Appears: Well, No Acute Distress - Head Exam Head Exam: NORMAL INSPECTION - Eye Exam Eye Exam: Normal appearance. absent: Scleral icterus - ENT Exam ENT Exam: Mucous Membranes Moist - Neck Exam Additional comments: large neck circumference - Respiratory Exam Respiratory Exam: NORMAL BREATHING PATTERN Additional comments: R basal crackles; - Cardiovascular Exam Cardiovascular Exam: REGULAR RHYTHM, +S1, +S2 - GI/Abdominal Exam GI & Abdominal Exam: Soft. absent: Distended, Tenderness - Extremities Exam Additional comments: Marked bilateral leg edema, improved; - Neurological Exam Neurological Exam: Alert, Awake - Psychiatric Exam Psychiatric exam: Normal Affect, Normal Mood - Skin Skin Exam: Warm. absent: Cyanosis Assessment and Plan (1) ESRD (end stage renal disease) on dialysis Assessment & Plan: Underwent 3rd HD session today, full length session with optimal blood flow and UF goal of 1.5L; awaiting permanent HD unit placement; next HD session for Wednesday; Status: Acute (2) Congestive heart failure (CHF) Assessment & Plan: Symptoms improved; will restart lasix at 80 mg IV bid on non-HD days; Status: Acute (3) Acute non-ST segment elevation myocardial infarction Assessment & Plan: s/p LAD stent, on ASA/plavix, continue per cardio recs; Status: Acute (4) Diabetes Assessment & Plan: On levemir 28 u q12h, no hypoglycemic readings documented but need to be cautious in setting of new ESRD with expectation of losing residual renal function over time; Status: Chronic (5) Hypertension Assessment & Plan: Relatively controlled; need to avoid sudden drops in BP in order to preserve residual renal function; Status: Chronic
[2016-11-15] MEDS: Insulin Lispro (humaLOG) MEDIUM Coverage SC SCH ×4 (06:33→23:50)
[2016-11-15] MEDS: Albuterol-Ipratrop 3 mg / 0.5 (3 ml) UD IH SCH ×2 (07:22→22:00)
[2016-11-15] MEDS: Hydrocortisone 1% Cream (30 GM) TOP SCH ×2 (10:18→18:22)
[2016-11-15] MEDS: Insulin Detemir 100 units/ml Vial (Levemir) SC SCH ×3 (10:20→23:35)
[2016-11-15] MEDS: POLYETHYLENE GLYCOL 3350 17 GM/Dose PACKET PO SCH ×2 (10:22→18:25)
--- NOTE | 2016-11-15 10:48 | PN ---
DATE: 11/15/2016 The patient is in bed in no acute distress. PHYSICAL EXAMINATION: VITAL SIGNS: Temperature is 98, blood pressure is 120/70, respiratory rate of 16. HEENT: Unremarkable. NECK: Supple. LUNGS: Have decreased breath sounds. HEART: Normal S1, S2. ABDOMEN: Soft, nontender. LABORATORY DATA: Reveals a white count of 5.4, hemoglobin of 8 and platelets of 182. Coagulation is noted. Chemistries reveal a BUN of 59 and creatinine is 5.2. Serology is negative and microbiology is negative. ASSESSMENT AND PLAN: This is a 46-year-old with drug related maculopapular rash, probably related to the morphine, with hypertension, diabetes, coronary artery disease. The patient is currently off of antibiotics. The patient is on Benadryl. We will follow with you. Merritt Luo MD cc: [phone] TT: 11/15/2016 10:47:33 Confirmation # [id number] Dictation # [id number]
--- NOTE | 2016-11-15 14:39 | PN ---
DATE: 11/15/2016 The patient is a 46-year-old female with CAD, status post CABG, status post recent LAD drug-eluting s tent placement, end-stage renal disease, just started on hemodialysis. The patient tolerated her thi rd overall dialysis session well yesterday. Reports some mild back pain toward the end of dialysis. Also, reporting some shortness of breath overnight. PHYSICAL EXAMINATION: VITAL SIGNS: This morning, blood pressure 150/82, heart rate of 66. GENERAL: No distress, able to communicate in full sentences. HEENT: Moist mucous membranes. Large neck circumference. CHEST: Right-sided basal crackles extending about almost intermediate up. Otherwise, normal breathing pa ttern. No wheezes, no rhonchi. HEART: S1, S2 positive. No rubs, no gallops, no overt murmurs. ABDOMEN: Obese, soft, nontender, nondistended. EXTREMITIES: Marked bilateral leg edema extending to the thighs and lower abdomen. ASSESSMENT: 1. End-stage renal disease, on hemodialysis. Tolerated third hemodialysis session well yesterday. Awaiting permanent hemodialysis unit placement. Next hemodialysis session for tomorrow targeting ult rafiltration goal of 1.5 liters over 3-1/2 hours with parameters to hold ultrafiltration if systolic blood pressure less than 110 to avoid any additional renal insults. 2. Congestive heart failure. Symptoms overall improved, but still with shortness of breath overnigh t. Lasix restarted at 80 mg IV b.i.d. on non-hemodialysis days. 3. Acute non-ST elevation myocardial infarction, status post left anterior descending stent, on aspi rin and Plavix. Continue per cardiology recs. Will have to confer with medical research assistant regarding optim al time for arteriovenous fistula/graft placement in the setting of recent drug-eluting stent and nee d for dual antiplatelet therapy. 4. Diabetes, on Levemir 28 units q. 12 hours. No hypoglycemic events noted. Need to monitor in pat ient with end-stage renal disease who will gradually lose residual renal function over time. 5. Hypertension, not optimally controlled. Will benefit from further ultrafiltration on hemodialysi s as well as with more diuresis. Kalia Sultana MD cc: [id number] TT: 11/15/2016 14:39:46 Confirmation # [id number] Dictation # [id number]
[2016-11-15] MEDS: Oxycodone/Acetaminophen 5/325 mg Tab PO PRN (14:54)
[2016-11-16] MEDS: Insulin Lispro (humaLOG) MEDIUM Coverage SC SCH ×4 (06:31→22:39)
[2016-11-16] MEDS: Albuterol-Ipratrop 3 mg / 0.5 (3 ml) UD IH SCH ×2 (07:15→21:29)
[2016-11-16] MEDS: Hydrocortisone 1% Cream (30 GM) TOP SCH ×2 (09:29→18:20)
[2016-11-16] MEDS: Insulin Detemir 100 units/ml Vial (Levemir) SC SCH ×2 (09:30→22:44)
[2016-11-16] MEDS: POLYETHYLENE GLYCOL 3350 17 GM/Dose PACKET PO SCH ×2 (09:31→18:23)
--- NOTE | 2016-11-16 11:57 | CP.PCM.PN ---
<AlvarezMendozaWade - Last Filed: 11/16/16 18:21> Subjective - Date & Time of Evaluation Date of Evaluation: 11/16/16 Time of Evaluation: 07:20 - Subjective Subjective: Patient seen and evaluated at bedside in TCU. She states she is feeling weak after dialysis, tenderness around the permacath site, and had mild pain on her right foot. She denies fever, chills, nausea, vomiting, chest pain, or difficulty breathing. Objective - Vital Signs/Intake and Output Vital Signs (last 24 hours): Temp Pulse Resp BP Pulse Ox 98.2 F 71 18 142/76 99 11/15/16 16:00 11/16/16 09:30 11/15/16 16:00 11/16/16 09:30 11/15/16 16:00 - Medications Medications: Current Medications Acetaminophen (Tylenol 325mg Tab) 650 mg PO Q6H PRN; Protocol PRN Reason: Fever >100.4 F Albuterol/Ipratropium (Duoneb 3 Mg/0.5 Mg (3 Ml) Ud) 3 ml IH Q2H PRN PRN Reason: Shortness of Breath Albuterol/Ipratropium (Duoneb 3 Mg/0.5 Mg (3 Ml) Ud) 3 ml IH [id number] KELSI PRN Reason: Protocol Last Admin: 11/16/16 07:15 Dose: 3 ml Aspirin (Ecotrin) 81 mg PO 0800 KELSI PRN Reason: Protocol Last Admin: 11/16/16 09:29 Dose: 81 mg Atorvastatin Calcium (Lipitor) 40 mg PO DIN KELSI PRN Reason: Protocol Last Admin: 11/15/16 18:25 Dose: 40 mg Cholecalciferol (Vitamin D) 2,000 iu PO DAILY KELSI PRN Reason: Protocol Last Admin: 11/16/16 09:32 Dose: 2,000 iu Clopidogrel Bisulfate (Plavix) 75 mg PO 0800 KELSI PRN Reason: Protocol Last Admin: 11/16/16 09:32 Dose: 75 mg Diphenhydramine HCl (Benadryl) 50 mg PO Q8 PRN PRN Reason: Allergy symptoms Last Admin: 11/11/16 21:47 Dose: 50 mg Docusate Sodium (Colace) 100 mg PO BID KELSI PRN Reason: Protocol Last Admin: 11/16/16 09:28 Dose: 100 mg Famotidine (Pepcid) 20 mg PO DAILY KELSI PRN Reason: Protocol Last Admin: 11/16/16 09:31 Dose: 20 mg Furosemide (Lasix) 80 mg IVP BID [facility] Last Admin: 11/16/16 09:29 Dose: 80 mg Gabapentin (Neurontin) 300 mg PO BID KELSI PRN Reason: Protocol Last Admin: 11/16/16 09:31 Dose: 300 mg Heparin Sodium (Porcine) (Heparin) 5,000 units SC 0600,1800 KELSI PRN Reason: Protocol Last Admin: 11/11/16 05:26 Dose: 5,000 units Hydralazine HCl (Apresoline) 25 mg PO TID KELSI PRN Reason: Protocol Last Admin: 11/16/16 09:28 Dose: 25 mg Hydrocortisone (Cortizone 1% Cream) 0 gm TOP BID KELSI PRN Reason: Protocol Last Admin: 11/16/16 09:29 Dose: 1 dose Insulin Detemir (Levemir) 28 unit SC Q12 KELSI PRN Reason: Protocol Last Admin: 11/16/16 09:30 Dose: 28 unit Insulin Human Lispro (Humalog Med) 0 units SC ACHS KELSI PRN Reason: Protocol Last Admin: 11/16/16 06:31 Dose: Not Given Metoprolol Tartrate (Lopressor) 25 mg PO 0800,1500 [facility] PRN Reason: Protocol Last Admin: 11/16/16 09:30 Dose: 25 mg Ondansetron HCl (Zofran Inj) 4 mg IVP Q4H PRN; Protocol PRN Reason: Nausea/Vomiting Last Admin: 11/14/16 22:04 Dose: 4 mg Polyethylene Glycol (Miralax) 17 gm PO BID KELSI PRN Reason: Protocol Last Admin: 11/16/16 09:31 Dose: Not Given Sevelamer HCl (Renagel) 2,400 mg PO WM [facility] PRN Reason: Protocol Last Admin: 11/16/16 09:32 Dose: 2,400 mg Sodium Chloride ([place] Nasal [place]) 0 ml NS Q6H PRN; Protocol PRN Reason: Nasal congestion - Labs Labs: 11/14/16 15:45 11/14/16 15:45 PT 12.0 Seconds (9.9-11.8) H 11/12/16 16:20 INR 1.11 (0.93-1.08) H 11/12/16 16:20 APTT 25.3 Seconds (23.7-30.8) 11/12/16 16:20 - Head Exam Head Exam: ATRAUMATIC, NORMOCEPHALIC - Eye Exam Eye Exam: EOMI - ENT Exam ENT Exam: Mucous Membranes Moist - Neck Exam Neck Exam: Full ROM, Normal Inspection - Respiratory Exam Respiratory Exam: Clear to Ausculation Bilateral, NORMAL BREATHING PATTERN. absent: Rhonchi, Wheezes - Cardiovascular Exam Cardiovascular Exam: REGULAR RHYTHM, RRR, +S1, +S2. absent: JVD - GI/Abdominal Exam GI & Abdominal Exam: Soft, Normal Bowel Sounds. absent: Tenderness - Extremities Exam Extremities Exam: Joint Swelling, Pedal Edema - Back Exam Back Exam: paraspinal tenderness, vertebral tenderness. absent: rash noted - Neurological Exam Neurological Exam: Alert, Awake - Psychiatric Exam Psychiatric exam: Normal Affect, Normal Mood - Skin Skin Exam: Dry, Intact, Normal Color, Warm Assessment and Plan - Assessment and Plan (Free Text) Assessment: 46F, pmh of CHF, HTN, HLD, CABG, CKD s/p Cardiac Cath w/stent and permacath placement this visit, undergoing dialysis. In TRCU for monitoring and physical therapy. Plan: 1) End-Stage Renal Disease: * Nephrology Consult Dr. Flores - Help appreciated. -awaiting permanent HD unit placement * will need AV fistula * tolerating dialysis well - Thur, Fri, Sat, scheduled later today. 2) COPD: * Duonebs q12h kelsi and q2h prn 3) Hyperphosphatemia: * Renagel 2400 mg po wm 4) Coronary Artery Disease: * Cardiology consulted, help appreciated * status post cardiac cath * continue Plavix 75 mg po qd, Lipitor 40 mg po din, Aspirin 81 mg po qd * f/u with cardio in 2-3 weeks after d/c 5) HTN: controlled * Lopressor 25 mg po bid * Hydralazine 25 mg po tid * Lasix 80mg PO bid 6) Diabetes Mellitus: controlled * Accuchecks * Humalog sliding scale * Levemir 28 units sc bid 7) Peripheral neuropathy: * Neurontin 300 mg po BID 8) Abdominal Pain: * improved * CT Abd/Pelvis: mod BL effusions and severe diffuse anasarca, 2mm non- obstructing stone in the left interpolar region, [please see full report] * Percocet prn for pain 9) Constipation: * improving * Miralax 17gm BID * Colace 100mg BID * Pt. had BM's last three days 10) Rash Back/legs: resolved * continue Hydrocortizone topical and Benedryl 25mg q8 prn 11) Foot Calus - right lateral foot * Podiatry consult - Dr. Porras Prophylactic Measures: GI: Pepcid 20 mg po daily DVT: heparin 5000 units sc q8h Vitamin D 2000 units iu po qd Tylenol 650 mg po q6h prn for fever > 100.4 Assessment and plan discussed with attending physician <Dany Wiley - Last Filed: 11/17/16 17:11> Objective - Vital Signs/Intake and Output Vital Signs (last 24 hours): Temp Pulse Resp BP Pulse Ox 97.9 F 86 18 168/84 H 95 11/17/16 06:00 11/17/16 14:22 11/17/16 06:00 11/17/16 14:22 11/17/16 06:00 Intake and Output: 11/17/16 11/17/16 06:59 18:59 Intake Total 240 420 Balance 240 420 - Labs Labs: 11/14/16 15:45 11/14/16 15:45 PT 12.0 Seconds (9.9-11.8) H 11/12/16 16:20 INR 1.11 (0.93-1.08) H 11/12/16 16:20 APTT 25.3 Seconds (23.7-30.8) 11/12/16 16:20 Assessment and Plan - Assessment and Plan (Free Text) Assessment: Attending note: Patient seen and examined with the resident in TCU. This is a 46 year old female with history of obesity, IDDM, HTN, CAD s/p CABG, CKD secondary to nephrotic syndrome, cardiomyopathy who got admitted for evaluation of shortness of breath most likely due to CHF exacerbation due to systolic dysfunction (ef 21%). She underwent cardiac cath and LAD stent was placed. Continue aspirin and Plavix. Patient has been tolerating HD via permacath. Got HD today. She just complains of generalized weakness and tiredness after HD. But improving slowly. Diabetes and hypertension is better controlled. She needs outpatient AV fistula placement in the future. Upon discharge patient will follow up with Dr Sunny De La Cruz. Attending/Attestation - Attestation I have personally seen and examined this patient.: Yes I have fully participated in the care of the patient.: Yes I have reviewed all pertinent clinical information, including history, physical exam and plan: Yes
--- NOTE | 2016-11-16 15:33 | CP.PCM.CON ---
History of Present Illness - History of Present Illness History of Present Illness: 45 y/o female patient with PMHx of IDDM, Anemia, Renal insufficient, Obesity, Asthma, Hypercholesterolemia, Depression/Anxiety was seen and evaluated at bedside this afternoon after request for podiatry consultation. Patient presents with Xerosis. No open wounds. Patient complains of dryness to her feet , and requests lotions to be applied. Patient has no other pedal complaints. She states that she used to have an open wound to lateral aspect of right heel which have closed up. No dressing is applied. Patient denies any symptoms of N/V /F/SOB/Chest pain. Past Patient History - Infectious Disease Hx of Infectious Diseases: None - Tetanus Immunizations Tetanus Immunization: Unknown - Past Medical History & Family History Past Medical History?: Yes - Past Social History Smoking Status: Never Smoked Alcohol: None Drugs: Denies Home Situation {Lives}: With Family - CARDIAC Hx Cardiac Disorders: Yes (CAD; S/P CABG) Hx Hypertension: Yes - PULMONARY Hx Respiratory Disorders: Yes Hx Asthma: Yes - NEUROLOGICAL Hx Neurological Disorder: Yes (NEUROPATHY) Other/Comment: chronic b/l legs and foot burning pain - HEENT Hx HEENT Problems: Yes (eyeglasses) - RENAL Hx Renal Failure: Yes - ENDOCRINE/METABOLIC Hx Diabetes Mellitus Type 2: Yes - HEMATOLOGICAL/ONCOLOGICAL Hx Blood Transfusions: Yes Hx Blood Transfusion Reaction: No - INTEGUMENTARY Hx Dermatological Problems: No - MUSCULOSKELETAL/RHEUMATOLOGICAL Hx Falls: No - GASTROINTESTINAL Hx Gastrointestinal Disorders: No - GENITOURINARY/GYNECOLOGICAL Hx Genitourinary Disorders: No - PSYCHIATRIC Hx Psychophysiologic Disorder: Yes Hx Depression: Yes Hx Emotional Abuse: No Hx Physical Abuse: No Hx Substance Use: No - SURGICAL HISTORY Hx Surgeries: Yes - ANESTHESIA Hx Anesthesia Reactions: No Hx Malignant Hyperthermia: No Meds Allergies/Adverse Reactions: Allergies Allergy/AdvReac Type Severity Reaction Status Date / Time morphine Allergy RASH Verified 11/09/16 20:56 anesthesia AdvReac VOMITING Uncoded 11/09/16 20:56 - Medications Medications: Current Medications Acetaminophen (Tylenol 325mg Tab) 650 mg PO Q6H PRN; Protocol PRN Reason: Fever >100.4 F Albuterol/Ipratropium (Duoneb 3 Mg/0.5 Mg (3 Ml) Ud) 3 ml IH Q2H PRN PRN Reason: Shortness of Breath Albuterol/Ipratropium (Duoneb 3 Mg/0.5 Mg (3 Ml) Ud) 3 ml IH [id number] SELWYN PRN Reason: Protocol Last Admin: 11/16/16 07:15 Dose: 3 ml Aspirin (Ecotrin) 81 mg PO 0800 SELWYN PRN Reason: Protocol Last Admin: 11/16/16 09:29 Dose: 81 mg Atorvastatin Calcium (Lipitor) 40 mg PO DIN SELWYN PRN Reason: Protocol Last Admin: 11/15/16 18:25 Dose: 40 mg Bumetanide (Bumex) 2 mg PO BID [facility] Cholecalciferol (Vitamin D) 2,000 iu PO DAILY SELWYN PRN Reason: Protocol Last Admin: 11/16/16 09:32 Dose: 2,000 iu Clopidogrel Bisulfate (Plavix) 75 mg PO 0800 SELWYN PRN Reason: Protocol Last Admin: 11/16/16 09:32 Dose: 75 mg Diphenhydramine HCl (Benadryl) 50 mg PO Q8 PRN PRN Reason: Allergy symptoms Last Admin: 11/11/16 21:47 Dose: 50 mg Docusate Sodium (Colace) 100 mg PO BID SELWYN PRN Reason: Protocol Last Admin: 11/16/16 09:28 Dose: 100 mg Famotidine (Pepcid) 20 mg PO DAILY SELWYN PRN Reason: Protocol Last Admin: 11/16/16 09:31 Dose: 20 mg Gabapentin (Neurontin) 300 mg PO BID SELWYN PRN Reason: Protocol Last Admin: 11/16/16 09:31 Dose: 300 mg Heparin Sodium (Porcine) (Heparin) 5,000 units SC 0600,1800 SELWYN PRN Reason: Protocol Last Admin: 11/11/16 05:26 Dose: 5,000 units Hydralazine HCl (Apresoline) 25 mg PO TID SELWYN PRN Reason: Protocol Last Admin: 11/16/16 13:48 Dose: 25 mg Hydrocortisone (Cortizone 1% Cream) 0 gm TOP BID SELWYN PRN Reason: Protocol Last Admin: 11/16/16 09:29 Dose: 1 dose Insulin Detemir (Levemir) 28 unit SC Q12 SELWYN PRN Reason: Protocol Last Admin: 11/16/16 09:30 Dose: 28 unit Insulin Human Lispro (Humalog Med) 0 units SC ACHS SELWYN PRN Reason: Protocol Last Admin: 11/16/16 12:58 Dose: Not Given Metoprolol Tartrate (Lopressor) 25 mg PO 0800,1500 SELWYN PRN Reason: Protocol Last Admin: 11/16/16 09:30 Dose: 25 mg Ondansetron HCl (Zofran Inj) 4 mg IVP Q4H PRN; Protocol PRN Reason: Nausea/Vomiting Last Admin: 11/14/16 22:04 Dose: 4 mg Polyethylene Glycol (Miralax) 17 gm PO BID SELWYN PRN Reason: Protocol Last Admin: 11/16/16 09:31 Dose: Not Given Sevelamer HCl (Renagel) 2,400 mg PO WM SELWYN PRN Reason: Protocol Last Admin: 11/16/16 12:59 Dose: 2,400 mg Sodium Chloride ([place] Nasal [place]) 0 ml NS Q6H PRN; Protocol PRN Reason: Nasal congestion Physical Exam - Constitutional Appears: Well, Non-toxic, No Acute Distress - Extremities Exam Additional comments: Right lower extremity No open wound noted to bilateral feet. Pedal pulses non-palpable bilaterally. CFT is less than 3 seconds, (+) pedal edema, no drainage, no purulence, no malodor, no signs of acute infection, Limited ROM of ankle and STJ, Protective sensation diminished. - Neurological Exam Neurological exam: Alert, Oriented x3 - Psychiatric Exam Psychiatric exam: Normal Affect, Normal Mood - Skin Skin Exam: Normal Color, Warm Results - Vital Signs Recent Vital Signs: Last Vital Signs Temp 98 F 11/16/16 10:00 Pulse 73 11/16/16 13:48 Resp 18 11/16/16 10:00 BP 136/72 11/16/16 13:48 Pulse Ox 99 11/16/16 10:00 - Labs Result Diagrams: 11/14/16 15:45 11/14/16 15:45 Labs: Laboratory Results - last 24 hr 11/14/16 11/15/16 11/15/16 17:30 06:12 17:16 POC Glucose (mg/dL) 114 H 163 H PTH Intact Whole Molec 128 H 11/15/16 11/15/16 11/16/16 21:51 23:28 05:25 POC Glucose (mg/dL) 146 H 160 H 124 H PTH Intact Whole Molec Assessment & Plan - Assessment and Plan (Free Text) Assessment: 46 y/o female patient with healed right foot ulcer, presenting with xerosis to b /l feet Plan: Patient seen and evaluated at bedside All the questions and concerns were addressed Labs and vitals were reviewed discussed in detail with Dr. Porras Lotion was applied to bilateral feet today Lac-Hydrin and Lotrimin topical cream will be ordered Podiatry will continue to follow while patient remains in house.
[2016-11-16 17:36] VITALS: O2SAT 95
--- NOTE | 2016-11-16 17:36 | CP.PCM.PN ---
Subjective - Date & Time of Evaluation Date of Evaluation: 11/16/16 Time of Evaluation: 10:15 - Subjective Subjective: Comfortable, afebrile, not in distress. No more pruritus in the legs or back. Objective - Vital Signs/Intake and Output Vital Signs (last 24 hours): Temp Pulse Resp BP Pulse Ox 98 F 73 18 136/72 99 11/16/16 10:00 11/16/16 13:48 11/16/16 10:00 11/16/16 13:48 11/16/16 10:00 - Medications Medications: Current Medications Acetaminophen (Tylenol 325mg Tab) 650 mg PO Q6H PRN; Protocol PRN Reason: Fever >100.4 F Albuterol/Ipratropium (Duoneb 3 Mg/0.5 Mg (3 Ml) Ud) 3 ml IH Q2H PRN PRN Reason: Shortness of Breath Albuterol/Ipratropium (Duoneb 3 Mg/0.5 Mg (3 Ml) Ud) 3 ml IH [id number] [facility]EL[facility] PRN Reason: Protocol Last Admin: 11/16/16 07:15 Dose: 3 ml Aspirin (Ecotrin) 81 mg PO 0800 [facility] PRN Reason: Protocol Last Admin: 11/16/16 09:29 Dose: 81 mg Atorvastatin Calcium (Lipitor) 40 mg PO DIN [facility] PRN Reason: Protocol Last Admin: 11/15/16 18:25 Dose: 40 mg Bumetanide (Bumex) 2 mg PO BID [facility] Cholecalciferol (Vitamin D) 2,000 iu PO DAILY [facility] PRN Reason: Protocol Last Admin: 11/16/16 09:32 Dose: 2,000 iu Clopidogrel Bisulfate (Plavix) 75 mg PO 0800 [facility] PRN Reason: Protocol Last Admin: 11/16/16 09:32 Dose: 75 mg Clotrimazole (Lotrimin 1%) 0 gm TOP BID [facility] Diphenhydramine HCl (Benadryl) 50 mg PO Q8 PRN PRN Reason: Allergy symptoms Last Admin: 11/11/16 21:47 Dose: 50 mg Docusate Sodium (Colace) 100 mg PO BID [facility] PRN Reason: Protocol Last Admin: 11/16/16 09:28 Dose: 100 mg Famotidine (Pepcid) 20 mg PO DAILY [facility] PRN Reason: Protocol Last Admin: 11/16/16 09:31 Dose: 20 mg Gabapentin (Neurontin) 300 mg PO BID [facility] PRN Reason: Protocol Last Admin: 11/16/16 09:31 Dose: 300 mg Heparin Sodium (Porcine) (Heparin) 5,000 units SC 0600,1800 [facility] PRN Reason: Protocol Last Admin: 11/11/16 05:26 Dose: 5,000 units Hydralazine HCl (Apresoline) 25 mg PO TID [facility]EL[facility]YN PRN Reason: Protocol Last Admin: 11/16/16 13:48 Dose: 25 mg Hydrocortisone (Cortizone 1% Cream) 0 gm TOP BID [facility]YN PRN Reason: Protocol Last Admin: 11/16/16 09:29 Dose: 1 dose Insulin Detemir (Levemir) 28 unit SC Q12 [facility] PRN Reason: Protocol Last Admin: 11/16/16 09:30 Dose: 28 unit Insulin Human Lispro (Humalog Med) 0 units SC ACHS [facility] PRN Reason: Protocol Last Admin: 11/16/16 12:58 Dose: Not Given Lactic Acid (Lac-Hydrin 12% Cream (140 G)) 0 ea TOP DAILY [facility] Metoprolol Tartrate (Lopressor) 25 mg PO 0800,1500 [facility] PRN Reason: Protocol Last Admin: 11/16/16 09:30 Dose: 25 mg Ondansetron HCl (Zofran Inj) 4 mg IVP Q4H PRN; Protocol PRN Reason: Nausea/Vomiting Last Admin: 11/14/16 22:04 Dose: 4 mg Polyethylene Glycol (Miralax) 17 gm PO BID [facility] PRN Reason: Protocol Last Admin: 11/16/16 09:31 Dose: Not Given Sevelamer HCl (Renagel) 2,400 mg PO WM [facility] PRN Reason: Protocol Last Admin: 11/16/16 12:59 Dose: 2,400 mg Sodium Chloride ([place] Nasal [place]) 0 ml NS Q6H PRN; Protocol PRN Reason: Nasal congestion - Labs Labs: 11/14/16 15:45 11/14/16 15:45 PT 12.0 Seconds (9.9-11.8) H 11/12/16 16:20 INR 1.11 (0.93-1.08) H 11/12/16 16:20 APTT 25.3 Seconds (23.7-30.8) 11/12/16 16:20 - Constitutional Appears: Non-toxic, No Acute Distress - Head Exam Head Exam: NORMAL INSPECTION - Neck Exam Neck Exam: absent: Lymphadenopathy, Meningismus - Respiratory Exam Respiratory Exam: Decreased Breath Sounds - Cardiovascular Exam Cardiovascular Exam: +S1, +S2 - GI/Abdominal Exam GI & Abdominal Exam: Soft. absent: Tenderness - Skin Additional comments: rash on the legs and back have faded Assessment and Plan - Assessment and Plan (Free Text) Plan: Assessment PRobable drug-related maculopapular rash, probably related to morphine, clinically improved significantly HTN DM CAD S/P CABG chronic renal failure chronic foot ulcer on the left dyslipidemia COPD morbid obesity with BMI 48 Plan continue Benadryl prn and Hydrodortisone cream and will continue to monitor clinical response - topical steroids should not be given for more than 2 weeks; should avoid morphine Will continue to follow clinically
[2016-11-16] MEDS: Clotrimazole 1% Cream(30 gm) TOP SCH (18:54)
--- NOTE | 2016-11-16 20:11 | PN ---
DATE: 11/16/2016 A 46-year-old female with coronary artery disease status post CABG, status post recent LAD drug-eluti ng stent placement, now ESRD, started on hemodialysis last week. The patient reports feeling well, a lthough did have some shortness of breath. IV line not functioning. The patient requesting not to h ave another one put in for now. PHYSICAL EXAMINATION: VITAL SIGNS: Today, blood pressure 136/72, heart rate of 73, respiration 18, temperature 98, O2 sat 99%. GENERAL: No distress, able to speak in complete sentences coherently. HEENT: Large neck circumference. No obvious JVD. CHEST: Right basal crackles noted, otherwise clear to auscultation. ABDOMEN: Obese, soft, nontender, nondistended. EXTREMITIES: Marked bilateral leg edema extending to the thighs and lower abdominal wall. LABORATORY DATA: None new since 2 days ago. ASSESSMENT: 1. End-stage renal disease on hemodialysis, tolerated third hemodialysis session well 2 days ago. W as to have a session today, but put off until tomorrow due to logistical issues. Still awaiting perm anent hemodialysis unit placement. Next hemodialysis session for tomorrow targeting UF goal of 1.5 l iters over 3-1/2 hours with parameters to hold ultrafiltration if systolic blood pressure less than 1 10 in order to avoid any renal insults. 2. Congestive heart failure with systolic dysfunction, currently symptomatically better, started on Lasix 80 mg IV b.i.d. yesterday. We will switch to Bumex 2 mg b.i.d. 3. Non-ST elevation myocardial infarction, status post left anterior descending stent, on aspirin an d Plavix. Continue per cardiology recs. We will have to confer with facs teacher regarding optimal time for AV fistula placement in the setting of recent drug-eluting stent and need for dual antiplate let therapy. 4. Diabetes on Levemir 28 units q. 12 hours. No hypoglycemic numbers noted. Monitor sugars closely and patient with endstage renal disease or will continue to lose residual renal function and may nee d to reduce dose of insulin. 5. Hypertension, currently controlled. Will benefit from ultrafiltration on hemodialysis and diures is. 6. Chronic kidney disease, mineral bone disease. Calcium and phos within acceptable limits, seconda ry hyperparathyroidism with PTH 128, no need to treat currently. Kalia Sultana MD cc: [id number] TT: 11/16/2016 20:10:42 Confirmation # [id number] Dictation # [id number]
[2016-11-16] MEDS ORDERED: Oxycodone/Acetaminophen 5/325 mg Tab PO ONE (23:09)
[2016-11-17 06:21] VITALS: RESP 18; TEMP 97.9
[2016-11-17] MEDS: Insulin Lispro (humaLOG) MEDIUM Coverage SC SCH ×2 (06:44→13:09)
[2016-11-17] MEDS ORDERED: Ammonium Lactate 12% Cream (140 g) TOP SCH (10:00)
[2016-11-17] MEDS: Insulin Detemir 100 units/ml Vial (Levemir) SC SCH (10:24)
[2016-11-17] MEDS: Hydrocortisone 1% Cream (30 GM) TOP SCH (10:24)
[2016-11-17] MEDS: POLYETHYLENE GLYCOL 3350 17 GM/Dose PACKET PO SCH (10:25)
[2016-11-17] MEDS: Clotrimazole 1% Cream(30 gm) TOP SCH (10:25)
--- NOTE | 2016-11-17 13:54 | CP.PCM.PN ---
<Unruly Vazquez - Last Filed: 11/17/16 13:50> Subjective - Date & Time of Evaluation Date of Evaluation: 11/17/16 Time of Evaluation: 11:25 - Subjective Subjective: 45 y/o female patient with PMHx of IDDM, Anemia, Renal insufficient, Obesity, Asthma, Hypercholesterolemia, Depression/Anxiety was seen and evaluated at bedside dialysis this morning concerning Xerosis and previous ulceration site to feet. Patient was resting comfortably in bed. No open wound. No dressing was applied. Patient denies any symptoms of N/V/F/SOB/Chest pain. Patient has no other pedal complains. Objective - Vital Signs/Intake and Output Vital Signs (last 24 hours): Temp Pulse Resp BP Pulse Ox 97.9 F 67 18 120/66 95 11/17/16 06:00 11/17/16 08:15 11/17/16 06:00 11/17/16 08:15 11/17/16 06:00 Intake and Output: 11/17/16 11/17/16 06:59 18:59 Intake Total 240 420 Balance 240 420 - Medications Medications: Current Medications Acetaminophen (Tylenol 325mg Tab) 650 mg PO Q6H PRN; Protocol PRN Reason: Fever >100.4 F Albuterol/Ipratropium (Duoneb 3 Mg/0.5 Mg (3 Ml) Ud) 3 ml IH Q2H PRN PRN Reason: Shortness of Breath Albuterol/Ipratropium (Duoneb 3 Mg/0.5 Mg (3 Ml) Ud) 3 ml IH [id number] SELWYN PRN Reason: Protocol Last Admin: 11/16/16 21:29 Dose: 3 ml Aspirin (Ecotrin) 81 mg PO 0800 S[facility]YN PRN Reason: Protocol Last Admin: 11/17/16 08:14 Dose: 81 mg Atorvastatin Calcium (Lipitor) 40 mg PO DIN [facility] PRN Reason: Protocol Last Admin: 11/16/16 18:21 Dose: 40 mg Bumetanide (Bumex) 2 mg PO BID [facility] Last Admin: 11/17/16 10:24 Dose: Not Given Cholecalciferol (Vitamin D) 2,000 iu PO DAILY [facility] PRN Reason: Protocol Last Admin: 11/17/16 10:25 Dose: Not Given Clopidogrel Bisulfate (Plavix) 75 mg PO 0800 [facility] PRN Reason: Protocol Last Admin: 11/17/16 08:16 Dose: 75 mg Clotrimazole (Lotrimin 1%) 0 gm TOP BID [facility] Last Admin: 11/17/16 10:25 Dose: Not Given Diphenhydramine HCl (Benadryl) 50 mg PO Q8 PRN PRN Reason: Allergy symptoms Last Admin: 11/11/16 21:47 Dose: 50 mg Docusate Sodium (Colace) 100 mg PO BID [facility] PRN Reason: Protocol Last Admin: 11/17/16 10:24 Dose: Not Given Famotidine (Pepcid) 20 mg PO DAILY [facility] PRN Reason: Protocol Last Admin: 11/17/16 10:25 Dose: Not Given Gabapentin (Neurontin) 300 mg PO BID [facility] PRN Reason: Protocol Last Admin: 11/17/16 10:25 Dose: Not Given Heparin Sodium (Porcine) (Heparin) 5,000 units SC 0600,1800 [facility] PRN Reason: Protocol Last Admin: 11/11/16 05:26 Dose: 5,000 units Hydralazine HCl (Apresoline) 25 mg PO TID [facility]YN PRN Reason: Protocol Last Admin: 11/17/16 10:23 Dose: Not Given Hydrocortisone (Cortizone 1% Cream) 0 gm TOP BID [facility] PRN Reason: Protocol Last Admin: 11/17/16 10:24 Dose: Not Given Insulin Detemir (Levemir) 28 unit SC Q12 [facility] PRN Reason: Protocol Last Admin: 11/17/16 10:24 Dose: Not Given Insulin Human Lispro (Humalog Med) 0 units SC ACHS [facility] PRN Reason: Protocol Last Admin: 11/17/16 13:09 Dose: Not Given Lactic Acid (Lac-Hydrin 12% Cream (140 G)) 0 ea TOP DAILY [facility] Last Admin: 11/17/16 13:09 Dose: Not Given Metoprolol Tartrate (Lopressor) 25 mg PO 0800,1500 [facility] PRN Reason: Protocol Last Admin: 11/17/16 08:15 Dose: 25 mg Ondansetron HCl (Zofran Inj) 4 mg IVP Q4H PRN; Protocol PRN Reason: Nausea/Vomiting Last Admin: 11/14/16 22:04 Dose: 4 mg Polyethylene Glycol (Miralax) 17 gm PO BID [facility] PRN Reason: Protocol Last Admin: 11/17/16 10:25 Dose: Not Given Sevelamer HCl (Renagel) 2,400 mg PO WM [facility] PRN Reason: Protocol Last Admin: 11/17/16 08:16 Dose: 2,400 mg Sodium Chloride ([place] Nasal [place]) 0 ml NS Q6H PRN; Protocol PRN Reason: Nasal congestion - Labs Labs: 11/14/16 15:45 11/14/16 15:45 PT 12.0 Seconds (9.9-11.8) H 11/12/16 16:20 INR 1.11 (0.93-1.08) H 11/12/16 16:20 APTT 25.3 Seconds (23.7-30.8) 11/12/16 16:20 - Constitutional Appears: Well, Non-toxic, No Acute Distress - Extremities Exam Additional comments: Right lower extremity No open wound noted to bilateral feet. Pedal pulses non-palpable bilaterally. CFT is less than 3 seconds, (+) pedal edema, no drainage, no purulence, no malodor, no signs of acute infection, Limited ROM of ankle and STJ, Protective sensation diminished. - Neurological Exam Neurological Exam: Alert, Awake, Oriented x3 - Psychiatric Exam Psychiatric exam: Normal Affect, Normal Mood - Skin Skin Exam: Normal Color, Warm Assessment and Plan - Assessment and Plan (Free Text) Assessment: 46 y/o female patient with healed right foot ulcer, presenting with xerosis to b /l feet Plan: Patient seen and evaluated at bedside Dialysis All the questions and concerns were addressed Labs and vitals were reviewed discussed in detail with Dr. Ada Garcia-Hydrin and Lotrimin topical cream to be bilateral feet Podiatry will continue to follow while patient remains in house. <Dino Caballero - Last Filed: 11/17/16 15:27> Objective - Vital Signs/Intake and Output Vital Signs (last 24 hours): Temp Pulse Resp BP Pulse Ox 97.9 F 86 18 168/84 H 95 11/17/16 06:00 11/17/16 14:22 11/17/16 06:00 11/17/16 14:22 11/17/16 06:00 Intake and Output: 11/17/16 11/17/16 06:59 18:59 Intake Total 240 420 Balance 240 420 - Medications Medications: Current Medications Acetaminophen (Tylenol 325mg Tab) 650 mg PO Q6H PRN; Protocol PRN Reason: Fever >100.4 F Albuterol/Ipratropium (Duoneb 3 Mg/0.5 Mg (3 Ml) Ud) 3 ml IH Q2H PRN PRN Reason: Shortness of Breath Albuterol/Ipratropium (Duoneb 3 Mg/0.5 Mg (3 Ml) Ud) 3 ml IH [id number] [facility]ELWYN PRN Reason: Protocol Last Admin: 11/16/16 21:29 Dose: 3 ml Aspirin (Ecotrin) 81 mg PO 0800 [facility] PRN Reason: Protocol Last Admin: 11/17/16 08:14 Dose: 81 mg Atorvastatin Calcium (Lipitor) 40 mg PO DIN [facility] PRN Reason: Protocol Last Admin: 11/16/16 18:21 Dose: 40 mg Bumetanide (Bumex) 2 mg PO BID [facility] Last Admin: 11/17/16 10:24 Dose: Not Given Cholecalciferol (Vitamin D) 2,000 iu PO DAILY [facility] PRN Reason: Protocol Last Admin: 11/17/16 10:25 Dose: Not Given Clopidogrel Bisulfate (Plavix) 75 mg PO 0800 [facility] PRN Reason: Protocol Last Admin: 11/17/16 08:16 Dose: 75 mg Clotrimazole (Lotrimin 1%) 0 gm TOP BID [facility] Last Admin: 11/17/16 10:25 Dose: Not Given Diphenhydramine HCl (Benadryl) 50 mg PO Q8 PRN PRN Reason: Allergy symptoms Last Admin: 11/11/16 21:47 Dose: 50 mg Docusate Sodium (Colace) 100 mg PO BID [facility] PRN Reason: Protocol Last Admin: 11/17/16 10:24 Dose: Not Given Famotidine (Pepcid) 20 mg PO DAILY [facility] PRN Reason: Protocol Last Admin: 11/17/16 10:25 Dose: Not Given Gabapentin (Neurontin) 300 mg PO BID [facility] PRN Reason: Protocol Last Admin: 11/17/16 10:25 Dose: Not Given Heparin Sodium (Porcine) (Heparin) 5,000 units SC 0600,1800 [facility] PRN Reason: Protocol Last Admin: 11/11/16 05:26 Dose: 5,000 units Hydralazine HCl (Apresoline) 25 mg PO TID [facility] PRN Reason: Protocol Last Admin: 11/17/16 14:22 Dose: 25 mg Hydrocortisone (Cortizone 1% Cream) 0 gm TOP BID [facility] PRN Reason: Protocol Last Admin: 11/17/16 10:24 Dose: Not Given Insulin Detemir (Levemir) 28 unit SC Q12 [facility] PRN Reason: Protocol Last Admin: 11/17/16 10:24 Dose: Not Given Insulin Human Lispro (Humalog Med) 0 units SC ACHS [facility] PRN Reason: Protocol Last Admin: 11/17/16 13:09 Dose: Not Given Lactic Acid (Lac-Hydrin 12% Cream (140 G)) 0 ea TOP DAILY [facility] Last Admin: 11/17/16 13:09 Dose: Not Given Metoprolol Tartrate (Lopressor) 25 mg PO 0800,1500 [facility] PRN Reason: Protocol Last Admin: 11/17/16 08:15 Dose: 25 mg Ondansetron HCl (Zofran Inj) 4 mg IVP Q4H PRN; Protocol PRN Reason: Nausea/Vomiting Last Admin: 11/14/16 22:04 Dose: 4 mg Polyethylene Glycol (Miralax) 17 gm PO BID [facility] PRN Reason: Protocol Last Admin: 11/17/16 10:25 Dose: Not Given Sevelamer HCl (Renagel) 2,400 mg PO WM [facility] PRN Reason: Protocol Last Admin: 11/17/16 13:00 Dose: 2,400 mg Sodium Chloride ([place] Nasal [place]) 0 ml NS Q6H PRN; Protocol PRN Reason: Nasal congestion - Labs Labs: 11/14/16 15:45 11/14/16 15:45 PT 12.0 Seconds (9.9-11.8) H 11/12/16 16:20 INR 1.11 (0.93-1.08) H 11/12/16 16:20 APTT 25.3 Seconds (23.7-30.8) 11/12/16 16:20 Attending/Attestation - Attestation I have personally seen and examined this patient.: Yes I have fully participated in the care of the patient.: Yes I have reviewed all pertinent clinical information, including history, physical exam and plan: Yes
[2016-11-17 14:25] VITALS: BP 168/84; PULSE 86
--- NOTE | 2016-11-17 15:34 | CP.PCM.DIS ---
Provider - Provider Date of Admission: 11/09/16 16:44 Attending physician: Dany Wiley MD Primary care physician: Jono Correa MD Time Spent in preparation of Discharge (in minutes): 35 Diagnosis - Discharge Diagnosis (1) Congestive heart failure (CHF) Status: Acute (2) ESRD (end stage renal disease) on dialysis Status: Acute (3) COPD exacerbation Status: Acute Hospital Course - Lab Results Lab Results: Most Recent Lab Values WBC 5.4 10^3/ul (4.5-11.0) 11/14/16 15:45 RBC 2.75 10^6/uL (3.5-6.1) L 11/14/16 15:45 Hgb 8.1 gm/dL (12.0-16.0) L 11/14/16 15:45 Hct 25.5 % (36.0-48.0) L 11/14/16 15:45 MCV 92.7 fL (80.0-105.0) 11/14/16 15:45 MCH 29.5 pg (25.0-35.0) 11/14/16 15:45 MCHC 31.8 g/dl (31.0-37.0) 11/14/16 15:45 RDW 13.9 % (11.5-14.5) 11/14/16 15:45 Plt Count 182 10^3/uL (120.0-450.0) 11/14/16 15:45 MPV 9.2 fl (7.0-11.0) 11/14/16 15:45 Gran % 77.3 % (50.0-68.0) H 11/14/16 15:45 Lymph % (Auto) 11.9 % (22.0-35.0) L 11/14/16 15:45 [place] % (Auto) 8.2 % (1.0-6.0) H 11/14/16 15:45 Eos % (Auto) 2.4 % (1.5-5.0) 11/14/16 15:45 Baso % (Auto) 0.2 % (0.0-3.0) 11/14/16 15:45 Gran # 4.15 (1.4-6.5) 11/14/16 15:45 Lymph # 0.6 (1.2-3.4) L 11/14/16 15:45 [place] # 0.4 (0.1-0.6) 11/14/16 15:45 Eos # 0.1 (0.0-0.7) 11/14/16 15:45 Baso # 0.01 K/mm3 (0.0-2.0) 11/14/16 15:45 PT 12.0 Seconds (9.9-11.8) H 11/12/16 16:20 INR 1.11 (0.93-1.08) H 11/12/16 16:20 APTT 25.3 Seconds (23.7-30.8) 11/12/16 16:20 Sodium 137 mmol/L (132-148) 11/14/16 15:45 Potassium 4.4 mmol/L (3.6-5.0) 11/14/16 15:45 Chloride 105 mmol/L (98-107) 11/14/16 15:45 Carbon Dioxide 27 mmol/L (21-33) 11/14/16 15:45 Anion Gap 9 (10-20) L 11/14/16 15:45 BUN 59 mg/dL (7-21) H 11/14/16 15:45 Creatinine 5.2 mg/dL (0.5-1.4) H 11/14/16 15:45 Est GFR ( Amer) 11 11/14/16 15:45 Est GFR (Non-Af Amer) 9 11/14/16 15:45 POC Glucose (mg/dL) 116 mg/dL (65-110) H 11/17/16 05:30 Random Glucose 165 mg/dL (70-110) H 11/14/16 15:45 Calcium 7.9 mg/dL (8.4-10.5) L 11/14/16 15:45 Phosphorus 4.3 mg/dL (2.5-4.5) 11/14/16 15:45 Magnesium 2.3 mg/dL (1.7-2.2) H 11/14/16 15:45 Total Bilirubin 0.3 mg/dL (0.2-1.3) 11/14/16 15:45 AST 23 U/L (15-39) 11/14/16 15:45 ALT 18 U/L (7-56) 11/14/16 15:45 Alkaline Phosphatase 48 U/L (38-133) 11/14/16 15:45 Total Protein 5.9 g/dL (5.8-8.3) 11/14/16 15:45 Albumin 2.6 g/dL (3.0-4.8) L 11/14/16 15:45 Globulin 3.3 gm/dL 11/14/16 15:45 Albumin/Globulin Ratio 0.8 (1.1-1.8) L 11/14/16 15:45 PTH Intact Whole Molec 128 pg/mL (14-64) H 11/14/16 17:30 Urine Color Yellow (YELLOW) 11/12/16 07:20 Urine Appearance Sl cloudy (CLEAR) 11/12/16 07:20 Urine pH 5.5 (4.7-8.0) 11/12/16 07:20 Ur Specific [place] 1.025 (1.005-1.035) 11/12/16 07:20 Urine Protein >=300 mg/dL (<30 mg/dL) H 11/12/16 07:20 Urine Glucose (UA) 100 mg/dL (NEGATIVE) H 11/12/16 07:20 Urine Ketones Negative mg/dL (NEGATIVE) 11/12/16 07:20 Urine Blood Trace-lysed (NEGATIVE) H 11/12/16 07:20 Urine Nitrate Negative (NEGATIVE) 11/12/16 07:20 Urine Bilirubin Negative (NEGATIVE) 11/12/16 07:20 Urine Urobilinogen 0.2 E.U./dL (<1 E.U./dL) 11/12/16 07:20 Ur Leukocyte Esterase Negative [place]/uL (NEGATIVE) 11/12/16 07:20 Urine RBC 1 - 3 /hpf (0-2) 11/12/16 07:20 Urine WBC 0 - 2 /hpf (0-6) 11/12/16 07:20 Ur Epithelial Cells 3 - 4 /hpf (0-5) 11/12/16 07:20 Urine Bacteria Few (NEG) 11/12/16 07:20 Coarse Granular Casts Small /hpf (0-2) H 11/12/16 07:20 Urine HCG, Qual Negative (NEGATIVE) 11/12/16 07:20 Hep Bs Antigen Negative (NEGATIVE) 11/12/16 16:10 Hep Bs Antibody Negative (NEGATIVE) 11/12/16 16:10 Hep B Core IgM Ab Negative (NEGATIVE) 11/12/16 16:10 Hepatitis C Antibody Negative (NEGATIVE) 11/12/16 16:10 - Date & Time of H&P Date of H&P: 11/17/16 Time of H&P: 07:30 Discharge Exam - Head Exam Head Exam: ATRAUMATIC, NORMOCEPHALIC - Eye Exam Eye Exam: EOMI - ENT Exam ENT Exam: Mucous Membranes Moist - Neck Exam Neck exam: Full Rom - Respiratory Exam Respiratory Exam: Clear to PA & Lateral, NORMAL BREATHING PATTERN, UNREMARKABLE - Cardiovascular Exam Cardiovascular Exam: REGULAR RHYTHM, RRR, +S1, +S2. absent: JVD - GI/Abdominal Exam GI & Abdominal Exam: Soft, Unremarkable. absent: Tenderness - Extremities Exam Extremities exam: joint swelling, pedal edema - Neurological Exam Neurological exam: Alert, CN II-XII Intact, Oriented x3 - Psychiatric Exam Psychiatric exam: Normal Affect, Normal Mood - Skin Skin Exam: Dry, Intact, Normal Color, Warm Discharge Plan - Discharge Medications Prescriptions: Bumetanide [Bumex] 2 mg PO BID #28 tab Clotrimazole 1% Cream [Lotrimin 1%] 1 pkg TOP BID #1 tube Sevelamer [Renagel] 2,400 mg PO WM #126 tab - Follow Up Plan Condition: GOOD Disposition: HOME/ ROUTINE Instructions: Heart Failure (GEN), Diabetic Ketoacidosis (GEN) Additional Instructions: Pt. is medically stable for discharge home. Please follow up with your Blunger Machine Operator, Dr. Markham within 1 week to schedule a follow up visit. Please follow up with your Medical Van Driver, Dr. Sultana within 1 week. Please follow up with your primary care doctor within 1 week to discuss your recent hospital visit and to go over your home medications. We have changed your lasix medication to Bumex twice daily. Please stop taking lasix. Please continue all other home medications. Thank you for allowing us to take part in your care. Referrals: Kalia Sultana MD [Staff Provider] - Jono Correa MD [Primary Care Provider] -
== END 2016-11-17 16:00 | disposition home or self-care (01) | DRG 280 ==
LOC: TRCU 16:44
PROVIDERS: ADMIT Hospitalist; ATTEND Internal Medicine
PROC: F07Z9FZ Gait Training/Functional Ambulation Treatment using Assistive, Adaptive, Supportive or Protective Equipment (ICD-10-PCS; principal; 2016-11-10)
PROC: F07M6ZZ Therapeutic Exercise Treatment of Musculoskeletal System - Whole Body (ICD-10-PCS; 2016-11-10)
PROC: F08Z0ZZ Bathing/Showering Techniques Treatment (ICD-10-PCS; 2016-11-13)
PROC: F08Z1ZZ Dressing Techniques Treatment (ICD-10-PCS; 2016-11-13)
PROC: F08Z2ZZ Grooming/Personal Hygiene Treatment (ICD-10-PCS; 2016-11-13)
DX: I50.21 Acute systolic (congestive) heart failure (principal); N18.6 End stage renal disease; I21.4 Non-ST elevation (NSTEMI) myocardial infarction; N17.9 Acute kidney failure, unspecified; I42.9 Cardiomyopathy, unspecified; J44.1 Chronic obstructive pulmonary disease with (acute) exacerbation; I13.2 Hypertensive heart and chronic kidney disease with heart failure and with stage 5 chronic kidney disease, or end stage renal disease; N25.81 Secondary hyperparathyroidism of renal origin; Z68.42 Body mass index [BMI] 45.0-49.9, adult; N04.9 Nephrotic syndrome with unspecified morphologic changes; D63.1 Anemia in chronic kidney disease; E11.21 Type 2 diabetes mellitus with diabetic nephropathy; E11.22 Type 2 diabetes mellitus with diabetic chronic kidney disease; L97.529 Non-pressure chronic ulcer of other part of left foot with unspecified severity; E66.01 Morbid (severe) obesity due to excess calories; Z79.02 Long term (current) use of antithrombotics/antiplatelets; Z79.82 Long term (current) use of aspirin; Z79.899 Other long term (current) drug therapy; Z79.4 Long term (current) use of insulin; E78.00 Pure hypercholesterolemia, unspecified; E78.5 Hyperlipidemia, unspecified; E83.39 Other disorders of phosphorus metabolism; G47.33 Obstructive sleep apnea (adult) (pediatric); I25.118 Atherosclerotic heart disease of native coronary artery with other forms of angina pectoris; Z95.1 Presence of aortocoronary bypass graft; J45.909 Unspecified asthma, uncomplicated; K59.00 Constipation, unspecified; L29.9 Pruritus, unspecified; Z80.0 Family history of malignant neoplasm of digestive organs; Z83.3 Family history of diabetes mellitus; Z95.5 Presence of coronary angioplasty implant and graft; Z99.2 Dependence on renal dialysis; Z88.5 Allergy status to narcotic agent; R21 Rash and other nonspecific skin eruption; T40.2X5A Adverse effect of other opioids, initial encounter; L85.3 Xerosis cutis; F32.89 Other specified depressive episodes
CPT/HCPCS: G8991-GO-CI

== ENCOUNTER 2016-11-12 07:37 | Day surgery (SDC) | payer MEDICARE, MEDICAID ==
[2016-11-12] MEDS ORDERED: Lidocaine 2% Inj (20ml) ONE (09:40)
[2016-11-12] MEDS ORDERED: Midazolam 2 MG/2 ML VIAL ONE (11:07)
[2016-11-12] MEDS ORDERED: Iodixanol 320 MG/ML 100 ML BOTTLE IV ONE (11:32)
[2016-11-12 13:15] VITALS: BP 136/67; PULSE 73; RESP 20; TEMP 97.3; O2SAT 95
--- NOTE | 2016-11-12 17:10 | VASCULAR ---
PROCEDURE: Ultrasound and fluoroscopic tunneled right IJ dialysis catheter. CLINICAL HISTORY: ESRD PHYSICIAN(S): Austin Muse M.D. TECHNIQUE: The relative risks and indications for the procedure were explained to the patient and informed written consent obtained. The patient was placed supine on the arteriography table and the right neck/chest was prepped and draped in the usual sterile fashion. 1% Xylocaine was used to anesthetize the skin and soft tissues at the puncture site. Conscious sedation and monitoring were provided throughout the procedure by a nurse. The right internal jugular vein was small but compressible. Under direct ultrasound guidance, the rightinternal jugular vein was punctured with a micropuncture set. A 0.035 Glidewire was advanced into the IVC. Sequential dilatation was performed with subsequent placement of a 28cm Thomas II catheter with its tip in the right atrium. A retrograde tunnel below the right clavicle was performed. The catheter was trimmed and the hub attached. Both ports aspirate and inject easily. The catheter was secured and a dressing applied. The patient tolerated the procedure well. IMPRESSION: 1. Ultrasound and fluoroscopically placed right IJ tunneled dialysis catheter.
== END 2016-11-12 13:45 ==
LOC: SDS 07:37
PROVIDERS: ATTEND Radiology Vascular & Interventional Radiology
DX: N18.6 End stage renal disease (principal)
CPT/HCPCS: 36558; 82948; 99152; C1750; C1769; J0690; J1644; J2250; J3010; Q9967

== ENCOUNTER 2017-02-01 07:16 | Day surgery (SDC) | payer MEDICARE, MEDICAID ==
[2017-01-28 13:01] VITALS: BMI 48.1
[2017-02-01 07:39] LABS: ADD MANUAL DIFF? NO
[2017-02-01 07:47] LABS: BASO # 0.02 K/mm3 (0.0-2.0); BASO % 0.4 % (0.0-3.0); EOS # 0.2 (0.0-0.7); EOS % 4.3 % (1.5-5.0); GRAN # 3.79 (1.4-6.5); GRAN % 67.1 % (50.0-68.0); HEMATOCRIT 36.7 % (36.0-48.0); LYMPH # 1.2 (1.2-3.4); LYMPH % 20.9 % (22.0-35.0); MEAN CELL VOLUME 89.5 fL (80.0-105.0); MEAN CORPUSCULAR HEMOGLOBIN 30.7 pg (25.0-35.0); MEAN CORPUSCULAR HGB CONC 34.3 g/dl (31.0-37.0); MEAN PLATELET VOLUME 9.1 fl (7.0-11.0); MONO # 0.4 (0.1-0.6); MONO % 7.3 % (1.0-6.0); PLATELET COUNT 220 10^3/uL (120.0-450.0); RED CELL DISTRIBUTION WIDTH 14.9 % (11.5-14.5); WHITE BLOOD COUNT 5.6 10^3/ul (4.5-11.0)
[2017-02-01 07:55] LABS: INR 0.98 (0.93-1.08); PARTIAL THROMBOPLASTIN TIME 22.9 Seconds (23.7-30.8)
[2017-02-01 07:57] LABS: POTASSIUM 4.6 mmol/L (3.6-5.0)
--- NOTE | 2017-02-01 08:10 | CP.SDSHP ---
Same Day Surgery H & P - History Proposed Procedure: removal of dialysis catheter. Pre-Op Diagnosis: dysfunctional dialysis catheter. - Previous Medical/Surgical History Cardiac: ASHD/CAD, Hx of CHF Pulmonary: Asthma, Emphysema/COPD Endocrine/Metabolic: Diabetes, Obesity Neuro: Headaches Misc: Anemia Pain: 0. No Pain Previous Surgical History: cardiac stent. - Allergies Allergies: Allergies morphine Allergy (Severe, Verified 01/28/17 13:01) RASH anesthesia Adverse Reaction (Uncoded 11/09/16 20:56) VOMITING - Physical Exam General Appearance: wnl. Mental Status: Alert & Oriented x3 Neuro: WNL Heart: WNL Lungs: WNL GI: WNL - Impression Impression: dysfunctional dialysis cath. - Date & Time Date: 02/01/17 Time: 08:09 Short Stay Discharge - Short Stay Discharge Admitting Diagnosis/Reason for Visit: ESRD N18.6 Disposition: HOME/ ROUTINE Referrals: Jono Correa MD [Primary Care Provider] -
[2017-02-01] MEDS ORDERED: Lidocaine 2% Inj (20ml) ONE (11:03)
[2017-02-01] MEDS ORDERED: Midazolam 2 MG/2 ML VIAL ONE ×2 (11:04→11:36)
[2017-02-01] MEDS ORDERED: Oxycodone/Acetaminophen 5/325 mg Tab PO PRN (12:01)
[2017-02-01 13:07] VITALS: RESP 18; TEMP 97.4
[2017-02-01 14:03] VITALS: BP 136/72; PULSE 74; O2SAT 97
--- NOTE | 2017-02-01 20:12 | VASCULAR ---
PROCEDURE: Replace tunneled right IJ dialysis catheter. CLINICAL HISTORY: End stage renal disease. Malfunctioning tunneled dialysis catheter. PHYSICIAN(S): Austin Muse M.D. TECHNIQUE: The relative risks and indications for the procedure were explained to the patient and consent obtained. The patient was placed supine on the arteriogram table and the tunneled right IJ dialysis catheter prepped and draped in the usual sterile fashion. Antibiotics were given prior to the procedure. 1% Xylocaine was used to anesthetize the skin soft tissues at the vein insertion site. A 2 cm incision was performed and the catheter bluntly dissected. Both ends of the catheter controlled and the catheter transected. The cuff and soft tissue portion of the catheter were anesthetized with 1% Xylocaine. Blunt dissection was performed. The cuffed portion of the catheter was removed. A 0.035 angled Glidewire was advanced through the catheter fragment and placed in the IVC. The old catheter was removed. The sheath was placed for the new catheter insertion. A 28cm [place] 2 catheter was advanced with its tip in the right atrium. A new retrograde tunnel below right clavicle was performed. The catheter was trimmed and the hub attached. Both ports aspirate and inject easily. The catheter was secured. The incision was closed with interrupted sutures. FINDINGS: IMPRESSION: 1. Replacement of the patient's tunneled right IJ dialysis catheter. A 28 cm Thomas 2 catheter was placed with its tip in the right atrium.
== END 2017-02-01 14:10 | disposition home or self-care (01) ==
LOC: SDSVAS 07:16
PROVIDERS: ATTEND Radiology Vascular & Interventional Radiology
DX: T82.49XA Other complication of vascular dialysis catheter, initial encounter (principal); I25.10 Atherosclerotic heart disease of native coronary artery without angina pectoris; I50.9 Heart failure, unspecified; J44.9 Chronic obstructive pulmonary disease, unspecified; E66.9 Obesity, unspecified; R51 Headache; D64.9 Anemia, unspecified; Z88.5 Allergy status to narcotic agent; Z88.4 Allergy status to anesthetic agent; E11.22 Type 2 diabetes mellitus with diabetic chronic kidney disease; N18.6 End stage renal disease
CPT/HCPCS: 36415; 36558; 76937; 77001; 80048; 85025; 85610; 85730; 99152; C1750; C1769; J0690; J1644; J2250; J2405; J3010; J7030

== ENCOUNTER 2017-11-05 14:16 | Inpatient (IN) | payer MEDICARE, MEDICAID ==
--- NOTE | 2017-11-05 14:35 | ED PDOC ---
Arrival/HPI - General Chief Complaint: Abnormal Skin Integrity Time Seen by Provider: 11/05/17 14:18 Historian: Patient - History of Present Illness Narrative History of Present Illness (Text): 11/05/17 14:27 47 year old female, pmh including htn/hyperlipidemia/dm/CHF/ESRD on dialysis M/W /F with last dialysis today, morphine allergy, LMP 4 years ago and not sexually active for the past 2 years?, complaining of rt. foot ulcerated wound which she noticed it by her grandchildren about 3 days ago, last tetanus over 10 years ago. Pt. stated that she has chronic diabetic neuropathy with poor sensation for pain on the bilateral toes and usually suppose to check her bilateral feet and sole of the feet everyday but she hasn't been checking it for the past 2 weeks. Pt. stated that the grand children look her feets and toes which noted to be ulcerated, no fever or chills, no night sweat, no dizziness, no night sweat, no other medical or psychological complaints. 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 - Endocrine/Metabolic Hx Diabetes Mellitus Type 1: Yes - Hematological/Oncological Hx Blood Transfusions: Yes Hx Blood Transfusion Reaction: No - Integumentary Hx Dermatological Disorder: No - Musculoskeletal/Rheumatological Hx Musculoskeletal Disorders: No - Gastrointestinal Hx Gastrointestinal Disorders: No - Genitourinary/Gynecological Hx Genitourinary Disorders: No - Psychiatric Hx Emotional Abuse: No Hx Physical Abuse: No Hx Substance Use: No - Surgical History Hx Coronary Artery Bypass Graft: Yes - Anesthesia Hx Anesthesia Reactions: No Hx Malignant Hyperthermia: No - Suicidal Assessment Feels Threatened In Home Enviroment: No Family/Social History - Physician Review Nursing Documentation Reviewed: Yes Family/Social History: Unknown Family HX Smoking Status: Never Smoked Hx Alcohol Use: No Hx Substance Use: No Allergies/Home Meds Allergies/Adverse Reactions: Allergies morphine Allergy (Severe, Verified 11/06/17 05:50) RASH anesthesia Adverse Reaction (Uncoded 11/06/17 05:50) VOMITING Home Medications: Home Meds Medication Instructions Recorded Confirmed Insulin Aspart [Novolog Flexpen] 10 unit SC ACHS PRN 11/13/16 11/05/17 Fenofibrate [Tricor] 54 mg PO DAILY 01/28/17 11/05/17 Insulin Detemir [Levemir] 10 unit SC HS 01/28/17 11/05/17 Insulin Detemir [Levemir] 17 unit SC QAM 01/28/17 11/05/17 Levocetirizine Dihydrochloride 5 mg PO DAILY 01/28/17 11/05/17 [Levocetirizine Dihydrochloride] Lisinopril [Zestril] 10 mg PO DAILY 01/28/17 11/05/17 Metoprolol Tartrate [Lopressor] 50 mg PO BID 01/28/17 11/05/17 Sevelamer [Renagel] 1,600 mg PO WM 01/28/17 11/05/17 Simvastatin [Zocor] 40 mg PO DAILY 01/28/17 11/05/17 cloNIDine [clonidine HCl] 0.2 mg PO BID 01/28/17 11/05/17 hydroCHLOROthiazide [Hydrodiuril] 25 mg PO DAILY 01/28/17 11/05/17 Fluticasone/Salmeterol 250/50 1 puff INH PRN PRN 08/26/17 11/05/17 [Advair Diskus 250/50] Pregabalin [Lyrica] 75 mg PO BID 08/26/17 11/05/17 Review of Systems - Review of Systems Constitutional: absent: Fatigue, Fevers Eyes: absent: Vision Changes ENT: absent: Hearing Changes Respiratory: absent: SOB, Cough Cardiovascular: absent: Chest Pain Gastrointestinal: absent: Abdominal Pain, Nausea, Vomiting Musculoskeletal: absent: Arthralgias Skin: Rash, Skin Lesions, Ulcer, Cellulitis. absent: Pruritis, Laceration, Abscess Neurological: absent: Headache Psychiatric: absent: Anxiety, Depression, Suicidal Ideation Physical Exam Vital Signs Reviewed: Yes Vital Signs Temp Pulse Resp BP Pulse Ox 11/05/17 18:17 80 18 151/79 H 98 11/05/17 14:37 98.0 F 82 16 161/97 H 99 Temperature: Afebrile Blood Pressure: Hypertensive Pulse: Regular Respiratory Rate: Normal Appearance: Positive for: Well-Appearing, Non-Toxic, Comfortable Pain Distress: Mild Mental Status: Positive for: Alert and Oriented X 3 - Systems Exam Head: Present: Atraumatic, Normocephalic Pupils: Present: PERRL Extroacular Muscles: Present: EOMI Conjunctiva: Present: Normal Mouth: Present: Moist Mucous Membranes Neck: Present: Normal Range of Motion Respiratory/Chest: Present: Clear to Auscultation, Good Air Exchange. No: Respiratory Distress, Accessory Muscle Use Cardiovascular: Present: Regular Rate and Rhythm, Normal S1, S2. No: Murmurs Abdomen: Present: Normal Bowel Sounds. No: Tenderness, Distention, Peritoneal Signs Back: Present: Normal Inspection Upper Extremity: Present: Normal Inspection. No: Cyanosis, Edema Lower Extremity: Present: Normal Inspection, Other (Rt. foot: visible 3rd to the 5th toe ventral skin folding region to be macerated and ulcerated on the ventral aspect of the 3rd toe, visible rupture blister wounds on the 3rd-5th digit noted, there is mild cellulitis noted on the dorsum aspect of the 3rd and 5th digit toe, +DPPT pulses, capillary refill< 2 second). No: Edema Neurological: Present: GCS=15, Speech Normal, Motor Func Grossly Intact, Memory Normal Skin: Present: Warm, Dry, Normal Color. No: Rashes Psychiatric: Present: Alert, Oriented x 3, Normal Insight, Normal Concentration Medical Decision Making ED Course and Treatment: 11/05/17 14:42 -labs/blood and wound culture -Rt. foot xray -RLE venuous doppler -IV vancomycin/zosyn/tdap -admission 11/05/17 15:57 -EKG: NSR @ 81 BPM, no ST elevation or depression, chronic T wave inversion noted on the I/aVL/V5/V6, compared with previous ekg. -Rt. foot xray: no fracture/dislocation/osteolytic changes, visible calcficiation of vessels noted. -RLE Venuous doppler: as per preliminary report, no acute DVT -Labs show no acute findings except B[place] 66779 from 21496, Creatine 2.8 from 7.4 , ESR 108 -IV zosyn (class B)/vancomycin (discussed with Dr. Tubbs and suggest to give vancomycin), and Insulin (class B) ordered, beta hcg is 7.83 which is indeterminate. -I spoke to the medical doctor cushion builder Dr. Morales, discussed about the labs/ radiology result, agreed to admit to his service with Dr. Porras/Dr. Luna/Dr. 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 -Pt. needs to be admitted to rule out osteomylitis and needs repeat beta hcg in 1 week. -repeat FS 485 given 10 units of insulin, will repeat the FS -Case discussed with Dr. Tubbs including labs/radiology result and consults, he agreed on the treatment and admission plan. Dr. Tubbs will put in the admission. - Lab Interpretations Microbiology Results: Microbiology Results 11/05/17 16:00 Blood-Venous Blood Culture - Preliminary NO GROWTH AFTER 24 HOURS 11/05/17 15:45 Blood-Venous Blood Culture - Preliminary NO GROWTH AFTER 24 HOURS Lab Results: 11/05/17 14:40 11/05/17 14:40 Lab Results 11/05/17 14:40: Beta HCG, Quant 7.83 H 11/05/17 14:40: Sodium 137, Potassium 4.0, Chloride 95 L, Carbon Dioxide 31, Anion Gap 15, BUN 22 H, Creatinine 2.8 H, Est GFR ( Amer) 22, Est GFR ( Non-Af Amer) 18, Random Glucose 485 H*, Calcium 9.5, Total Bilirubin 0.4, AST 29 , ALT 22, Alkaline Phosphatase 92, C-Reactive Protein 14.80 H, NT-Pro-B Natriuret Pep 41319 H, Total Protein 7.7, Albumin 3.8, Globulin 3.9, Albumin/ Globulin Ratio 1.0 L 11/05/17 14:40: WBC 7.1 D, RBC 3.73, Hgb 12.6 D, Hct 35.7 L, MCV 95.7, MCH 33.8, MCHC 35.3, RDW 13.0, Plt Count 276, MPV 9.4, Gran % 76.7 H, Lymph % (Auto ) 13.6 L, Griggs % (Auto) 6.7 H, Eos % (Auto) 2.9, Baso % (Auto) 0.1, Gran # 5.47 , Lymph # (Auto) 1.0 L, Griggs # (Auto) 0.5, Eos # (Auto) 0.2, Baso # (Auto) 0.01 , ESR 108 H - RAD Interpretation Radiology Orders: 11/05/17 14:35 FOOT RIGHT 3 VIEWS ROUTINE [RAD] Stat DUPLEX LOWER EXTRM VEIN RIGHT [US] Stat Rt. foot xray: soft tissue swelling with no acute osseous abnormality. RLE Venuous doppler: as per preliminary report, no acute DVT Access Liaison: Radiologist - EKG Interpretation EKG Interpretation (Text): 11/05/17 16:00 NSR @ 81 BPM, no ST elevation or depression, chronic T wave inversion noted on the I/aVL/V5/V6, compared with previous ekg. Interpreted by ED Physician: Yes Type: 12 lead EKG Comparison: Com.w/previous EKG - Medication Orders Current Medication Orders: Albuterol/Ipratropium (Duoneb 3 Mg/0.5 Mg (3 Ml) Ud) 3 ml IH QID PRN PRN Reason: Shortness of Breath Atorvastatin Calcium (Lipitor) 20 mg PO DIN [facility] Clonidine HCl (Catapres) 0.2 mg PO BID [facility] Last Admin: 11/06/17 09:37 Dose: 0.2 mg MAR Pulse and Blood Pressure Document 11/06/17 09:37 [facility] [place] (Rec: 11/06/17 09:37 [id number]) Blood Pressure Blood Pressure (100/60-150/90) 156/82 Fenofibrate (Tricor) 48 mg PO DAILY [facility] Last Admin: 11/06/17 09:40 Dose: 48 mg Ceftaroline Fosamil 200 mg/ (Sodium Chloride) 50 mls @ 50 mls/hr IVPB Q12H [facility] PRN Reason: Protocol Stop: 11/12/17 20:46 Last Admin: 11/06/17 10:04 Dose: 50 mls/hr eMAR Start Stop Document 11/06/17 10:04 [facility] [place] (Rec: 11/06/17 10:05 [facility] [place] [id number]) Intravenous Solution Start Date 11/06/17 Start Time 10:05 End Date 11/06/17 End time 11:05 Total Infusion Time 60 Insulin Detemir (Levemir) 10 unit SC BID [facility] Last Admin: 11/06/17 12:23 Dose: 10 unit MAR Blood Glucose Document 11/06/17 12:23 [facility] [place] (Rec: 11/06/17 12:23 [id number][facility] Blood Glucose Finger Stick Blood Glucose (70-120) 267 Subcutaneous Administrations Document 11/06/17 12:23 [facility] [place] (Rec: 11/06/17 12:23 [id number]) Injection Site MAR Injection Site Right Arm Charges for Administration # of Subcutaneous Administrations 1 Insulin Human Lispro (Humalog Low) 0 units SC ACHS [facility] PRN Reason: Protocol Last Admin: 11/06/17 12:24 Dose: 3 units MAR Blood Glucose Document 11/06/17 12:24 [facility] [place] (Rec: 11/06/17 12:25 [id number]) Blood Glucose Finger Stick Blood Glucose (70-120) 267 Subcutaneous Administrations Document 11/06/17 12:24 [facility] [place] (Rec: 11/06/17 12:25 [id number]) Injection Site MAR Injection Site Left Arm Charges for Administration # of Subcutaneous Administrations 1 Insulin Human Lispro (Humalog) 7 units SC AC [facility] Last Admin: 11/06/17 12:22 Dose: 7 units MAR Blood Glucose Document 11/06/17 12:22 [facility] [place] (Rec: 11/06/17 12:23 [id number]) Blood Glucose Finger Stick Blood Glucose (70-120) 267 Subcutaneous Administrations Document 11/06/17 12:22 [facility] [place] (Rec: 11/06/17 12:23 [id number]) Injection Site MAR Injection Site Right Arm Charges for Administration # of Subcutaneous Administrations 1 Lisinopril (Zestril) 40 mg PO DAILY [facility] Last Admin: 11/06/17 09:37 Dose: 40 mg Metolazone (Zaroxolyn) 10 mg PO Q12H [facility] Last Admin: 11/06/17 09:38 Dose: 10 mg Metoprolol Tartrate (Lopressor) 50 mg PO BID [facility] Last Admin: 11/06/17 09:37 Dose: 50 mg MAR Pulse and Blood Pressure Document 11/06/17 09:37 [facility] [place] (Rec: 11/06/17 09:38 [id number]) Blood Pressure Blood Pressure (100/60-150/90) 156/82 Levocetirizine Dihydrochloride [ Levocetirizine Dihydrochloride] 5 mg PO DAILY [facility] Ondansetron HCl (Zofran Inj) 4 mg IVP Q6H PRN PRN Reason: Nausea/Vomiting Pregabalin (Lyrica) 75 mg PO BID [facility] Last Admin: 11/06/17 09:37 Dose: 75 mg Sevelamer HCl (Renagel) 1,600 mg PO WM [facility] Last Admin: 11/06/17 12:23 Dose: 1,600 mg Torsemide (Demadex) 100 mg PO Q12H [facility] Last Admin: 11/06/17 11:28 Dose: Not Given Non-Admin Reason: Patient Refused Discontinued Medications Acetaminophen (Tylenol 325mg Tab) 650 mg PO STAT STA Stop: 11/05/17 17:47 Last Admin: 11/05/17 17:52 Dose: 650 mg Albuterol/Ipratropium (Duoneb 3 Mg/0.5 Mg (3 Ml) Ud) 3 ml IH QID [facility] Piperacillin Sod/Tazobactam Sod (Zosyn 2.25 Gm In 0.9% 100 Ml) 2.25 gm in 100 mls @ 100 mls/hr IVPB STAT STA PRN Reason: Protocol Stop: 11/05/17 16:09 Last Admin: 11/05/17 16:47 Dose: 100 mls/hr eMAR Start Stop Document 11/05/17 16:47 GMD (Rec: 11/05/17 16:47 GMD [id number]) Intravenous Solution Start Date 11/05/17 Start Time 16:47 End Date 11/05/17 End time 17:47 Total Infusion Time 60 Vancomycin HCl (Vancomycin 1gm) 1 gm in 250 mls @ 167 mls/hr IVPB STAT STA PRN Reason: Protocol Stop: 11/05/17 18:00 Last Admin: 11/05/17 18:02 Dose: 167 mls/hr eMAR Start Stop Document 11/05/17 18:02 GMD (Rec: 11/05/17 18:02 GMD [id number]) Intravenous Solution Start Date 11/05/17 Start Time 18:02 End Date 11/05/17 End time 19:32 Total Infusion Time 90 Insulin Detemir (Levemir) 10 unit SC HS [facility] Last Admin: 11/05/17 21:34 Dose: 10 unit MAR Blood Glucose Document 11/05/17 21:34 MB (Rec: 11/05/17 21:34 [id number]) Blood Glucose Finger Stick Blood Glucose (70-120) 242 Subcutaneous Administrations Document 11/05/17 21:34 MB (Rec: 11/05/17 21:34 [id number]) Injection Site MAR Injection Site Right Arm Charges for Administration # of Subcutaneous Administrations 1 Insulin Human Regular (Humulin R) 10 units IV STAT STA Stop: 11/05/17 15:26 Last Admin: 11/05/17 16:48 Dose: 10 units eMAR Start Stop Document 11/05/17 16:48 GMD (Rec: 11/05/17 16:48 GMD [id number]) Intravenous Solution Start Date 11/05/17 Start Time 16:48 Tetanus/Reduced Diphtheria/Acell Pertussis (Boostrix Vaccine Inj) 0.5 ml IM .ONCE ONE Stop: 11/05/17 14:38 Last Admin: 11/05/17 16:46 Dose: 0.5 ml Immunization Registry Document 11/05/17 16:46 GMD (Rec: 11/05/17 16:46 GMD [id number]) Immunization Registry Consent Date 06/29/17 - PA / LABORATORY AIDE / Resident Statement /DO has reviewed & agrees with the documentation as recorded. Disposition/Present on Arrival - Present on Arrival Any Indicators Present on Arrival: No History of DVT/PE: No History of Uncontrolled Diabetes: No Urinary Catheter: No History of Decub. Ulcer: No History Surgical Site Infection Following: None - Disposition Have Diagnosis and Disposition been Completed?: Yes Diagnosis: Cellulitis of foot, Diabetic foot ulcer Disposition: HOSPITALIZED Disposition Time: 14:43 Patient Plan: Admission Patient Problems: Current Active Problems Problem Status Onset Diabetic foot ulcer Acute Cellulitis of foot Acute Condition: STABLE
[2017-11-05] MEDS ORDERED: TDAP Vaccine 0.5 mL Syr IM ONE (14:37)
[2017-11-05 15:03] LABS: BASO # 0.01 K/mm3 (0.0-2.0); BASO % 0.1 % (0.0-3.0); EOS # 0.2 (0.0-0.7); EOS % 2.9 % (1.5-5.0); GRAN # 5.47 (1.4-6.5); GRAN % 76.7 % (50.0-68.0); HEMOGLOBIN 12.6 g/dL (12.0-16.0); LYMPH % 13.6 % (22.0-35.0); MEAN CELL VOLUME 95.7 fl (80.0-105.0); MEAN CORPUSCULAR HEMOGLOBIN 33.8 pg (25.0-35.0); MEAN CORPUSCULAR HGB CONC 35.3 g/dl (31.0-37.0); MEAN PLATELET VOLUME 9.4 fl (7.0-11.0); MONO # 0.5 (0.1-0.6); MONO % 6.7 % (1.0-6.0); RBC 3.73 10^6/uL (3.5-6.1); WHITE BLOOD COUNT 7.1 10^3/ul (4.5-11.0)
[2017-11-05] MEDS ORDERED: Vancomycin 1gm in NS 250ml 1 GM/250 ML BAG IVPB STA ×2 (15:10→16:31)
[2017-11-05] MEDS ORDERED: Piperacillin/Tazobact 2.25gm 2.25 GM/100 ML BAG IVPB STA (15:10)
[2017-11-05 15:18] LABS: ALBUMIN 3.8 g/dL (3.0-4.8); CALCIUM 9.5 mg/dL (8.4-10.5)
[2017-11-05] MEDS ORDERED: Insulin Regular 1 UNITS/0.01 ML ML IV STA (15:25)
--- NOTE | 2017-11-05 16:04 | RAD ---
PROCEDURE: Right Foot Radiographs. HISTORY: Ulcerations/cellulitis. Attention 3rd 4th and 5th toes. COMPARISON: None. FINDINGS: BONES: No evidence of fracture, no radiologic findings to suggest osteomyelitis JOINTS: Multiple hammertoe deformities SOFT TISSUES: Soft tissue swelling about the distal aspect of the foot OTHER FINDINGS: None. IMPRESSION: Soft tissue swelling without acute articular or osseous abnormality.
--- NOTE | 2017-11-05 18:04 | US ---
PROCEDURE: Right lower extremity venous US HISTORY: Leg pain and swelling. Evaluate for DVT. PHYSICIAN(S): uAstin Muse M.D. TECHNIQUE: Duplex sonography and color-flow Doppler with graded compression were used to evaluate the deep venous system of the right lower extremity. The exam is somewhat limited by body habitus and edema P FINDINGS: The visualized deep venous system of the right lower extremity is sonographically normal and compressible. Normal waveforms and augmentation are seen. There is no sonographic evidence for deep venous thrombosis in the visualized segments of the right lower extremity. IMPRESSION: 1. No sonographic evidence for deep venous thrombosis in the visualized segments of the right lower extremity.
[2017-11-05] MEDS: Insulin Lispro (humaLOG) LOW Coverage SC SCH (21:27)
[2017-11-05] MEDS ORDERED: Albuterol-Ipratrop 3 mg / 0.5 (3 ml) UD IH PRN (21:28)
[2017-11-05] MEDS ORDERED: Albuterol-Ipratrop 3 mg / 0.5 (3 ml) UD IH SCH (22:00)
[2017-11-05] MEDS ORDERED: Insulin Detemir 100 units/ml Vial (Levemir) SC SCH (22:00)
[2017-11-06] MEDS ORDERED: Piperacillin/Tazobact 2.25gm 2.25 GM/100 ML BAG IVPB SCH
[2017-11-06 02:44] VITALS: BMI 36.8
--- NOTE | 2017-11-06 06:27 | CP.PCM.PN ---
Subjective - Date & Time of Evaluation Date of Evaluation: 11/06/17 Time of Evaluation: 06:23 - Subjective Subjective: S:Nurse calls me and brings to my attention that Beta HCG is 7.83. Went to see patient who is sleeping now. As per nurse ,who spoke to patient,she had no recent sexual contact. Medical record was reviewed. O: Last Vital Signs 3 Temp 99.2 F 11/06/17 00:52 Pulse 82 11/06/17 00:52 Resp 18 11/06/17 00:52 BP 141/84 11/06/17 00:52 Pulse Ox 97 11/05/17 22:00 Asleep. Not in distress. LUNGS:Normal breathing pattern. A:R/O . P: Repeat beta HCG. Also get urine for HCG. Objective - Vital Signs/Intake and Output Vital Signs (last 24 hours): Temp Pulse Resp BP Pulse Ox 99.2 F 82 18 141/84 97 11/06/17 00:52 11/06/17 00:52 11/06/17 00:52 11/06/17 00:52 11/05/17 22:00 Intake and Output: 11/05/17 11/06/17 18:59 06:59 Intake Total 720 Balance 720 - Medications Medications: Current Medications Albuterol/Ipratropium (Duoneb 3 Mg/0.5 Mg (3 Ml) Ud) 3 ml IH QID PRN PRN Reason: Shortness of Breath Atorvastatin Calcium (Lipitor) 20 mg PO DIN [facility] Clonidine HCl (Catapres) 0.2 mg PO BID [facility] Last Admin: 11/05/17 21:34 Dose: 0.2 mg Fenofibrate (Tricor) 48 mg PO DAILY [facility] Ceftaroline Fosamil 200 mg/ (Sodium Chloride) 50 mls @ 50 mls/hr IVPB Q12H [facility] PRN Reason: Protocol Stop: 11/12/17 20:46 Last Admin: 11/05/17 21:34 Dose: 50 mls/hr Insulin Detemir (Levemir) 10 unit SC HS [facility] Last Admin: 11/05/17 21:34 Dose: 10 unit Insulin Human Lispro (Humalog Low) 0 units SC ACHS [facility] PRN Reason: Protocol Last Admin: 11/05/17 21:27 Dose: Not Given Lisinopril (Zestril) 40 mg PO DAILY [facility] Metolazone (Zaroxolyn) 10 mg PO Q12H [facility] Metoprolol Tartrate (Lopressor) 50 mg PO BID [facility] Levocetirizine Dihydrochloride [ Levocetirizine Dihydrochloride] 5 mg PO DAILY [facility] Pregabalin (Lyrica) 75 mg PO BID [facility] Sevelamer HCl (Renagel) 1,600 mg PO WM [facility] Torsemide (Demadex) 100 mg PO Q12H [facility]
[2017-11-06] MEDS: metOLazone 5 MG TAB PO SCH (09:38)
[2017-11-06] MEDS: Insulin Lispro (humaLOG) LOW Coverage SC SCH ×4 (09:39→22:00)
[2017-11-06] MEDS ORDERED: FENOFIBRATE 54 MG PO SCH (10:00)
[2017-11-06] MEDS ORDERED: Non Formulary Medication (Simvastatin [Zocor] 40 MG) PO SCH (10:00)
[2017-11-06] MEDS ORDERED: LEVOCETIRIZINE DIHYDROCHLORIDE 5 MG PO SCH (10:00)
--- NOTE | 2017-11-06 10:57 | CON ---
DATE: HISTORY OF PRESENT ILLNESS: A 47-year-old female, seen at bedside for recent ulceration on the third, fourth and fifth digits of her right foot. The patient has profound diabetic neuropathy and has no recollection of injuring her foot. She states that her grandchildren noticed that her toes were wounded approximately 3 days ago and she came to the hospital yesterday for evaluation. She denies experiencing any fever, chills, nausea or vomiting and has had no shortness of breath. PAST MEDICAL HISTORY: The patient's medical history is significant for longstanding uncontrolled insulin-dependent diabetes with peripheral arterial disease and peripheral neuropathy; end-stage renal disease, on hemodialysis 3 days a week; morbid obesity; CAD; essential hypertension; dyslipidemia. PAST SURGICAL HISTORY: Includes CABG. IMPRESSION: THE PATIENT'S ALLERGIES INCLUDE MORPHINE AND ADVERSE REACTION TO ANESTHESIA. SOCIAL HISTORY: The patient is , never smoked, never used alcohol. Denies any illicit drug use. VITAL SIGNS: The patient's vital signs revealed a temperature of 99.3, pulse rate of 77, blood pressure of 158/82, respiratory rate of 20. LABORATORY DATA: Laboratory findings reveal white count of 7.1, hemoglobin of 12.6, hematocrit of 35.7, platelet count of 276. Her ESR is elevated at 108. Microbiology report taken yesterday reveals moderate gram-positive cocci growth with sensitivities to follow. X-rays taken revealed no radiographic evidence of cortical destruction to suggest osteomyelitis to suggest the presence of osteomyelitis. Venous Dopplers taken revealed no sonographic evidence of deep vein thrombosis. OBJECTIVE: Nonpalpable posterior tibial pulse noted bilaterally. Weakly palpable dorsalis pedis pulse noted bilaterally. The patient is unable to detect 5.07 g monofilament wire testing bilaterally. Lower extremity skin presents thin, shining discolored bilaterally. Capillary filling time is delayed on all digits. There is absent pedal hair growth noted on both feet. Temperature gradient is within normal limits bilaterally. Right foot presents with ulcerated third, fourth and fifth toes. Ulcerations are on the plantar aspect of the toes primarily. The base of the ulcerations are primarily granular with some fibrotic tissue. The area of ulceration is macerated. There is no purulence noted. The area is edematous and erythematous. No signs of ascending cellulitis. There is no probing to tendon or bone at this point. ASSESSMENT: Diabetic foot ulcerations to the right third, fourth and fifth digits secondary to some unknown trauma. PLAN: The patient's foot was examined. The area was cleansed with normal sterile saline. Small amount of Betadine was applied. Betadine solution was applied to dry out the macerated areas. A dry sterile dressing was applied. X-ray results were reviewed. Recommend immediate Infectious Disease consult to evaluate cultures and sensitivity and prescribe accordingly. We will order MRI to rule out any underlying osteomyelitis. Continue with ceftaroline IV until further Infectious Disease consult is obtained. The patient will be seen and followed daily. We will await MRI results. Dino Caballero DPM
[2017-11-06] MEDS: Insulin Lispro 1 UNITS/0.01 ML SC SCH ×2 (12:22→18:31)
[2017-11-06] MEDS: Insulin Detemir 100 units/ml Vial (Levemir) SC SCH ×2 (12:23→18:33)
--- NOTE | 2017-11-06 22:08 | CON ---
DATE: NEPHROLOGY CONSULTATION LOCATION: [facility] (Formerly [facility])[3]. HISTORY OF PRESENT ILLNESS: A 47-year-old female with past medical history of CAD status post CABG, status post stent in 10/2016, diabetes, hypertension, morbid obesity, AKBAR on CPAP and ESRD on hemodialysis (Wednesday, Wednesday, Wednesday at [facility] (Formerly [facility])[3] since 11/2016 under [facility]) was sent by us to ED yesterday after being found to have left toe sloughing of skin; Nephrology being consulted for ESRD care. The patient reports that since past 1 week, she noticed skin changes involving her right foot toes; otherwise denies any fever or chills; denies getting injured. The patient otherwise has been having intermittent shortness of breath, but unchanged from baseline; denies any chest pains or palpitations; has been eating well. No nausea or vomiting. The patient has been adherent to her hemodialysis schedule. PAST MEDICAL HISTORY: As above. The patient still with hemodialysis catheter even after almost one year; fistula creation surgery has been delayed due to concern for cardiovascular risk especially with drug-eluting stent placed 1 year ago. SOCIAL HISTORY: Never smoked. REVIEW OF SYSTEMS: CONSTITUTIONAL: No anorexia, eating well. HEENT: No difficulty swallowing. RESPIRATORY: Intermittent dyspnea, was supposed to go back to Pulmonary for CPAP adjustment, but has not been able to make an appointment. CARDIOVASCULAR: Denies chest pains or palpitations. Had recent stress test done last week, which was reassuring. GI: No nausea, vomiting, diarrhea. : Urinating well, on diuretics. No dysuria. MUSCULOSKELETAL: Chronic back pain and leg pains. PSYCHIATRIC: Has been having disturbed sleep. SKIN: As per HPI. NEUROLOGIC: Gets numbness in her feet. PHYSICAL EXAMINATION VITAL SIGNS: This morning blood pressure 158/82, heart rate 77, respirations 20, temperature 99.3, O2 sat 96% on room air. GENERAL: No distress, conversing coherently in full sentences. HEENT: No cervical lymphadenopathy. No JVD. Moist mucous membranes. RESPIRATORY: Lungs clear to auscultation bilaterally. No rales, no rhonchi, no wheezes. CARDIOVASCULAR: Heart sounds S1 and S2 normal. No murmurs, no gallops, no rubs. GI: Abdomen is soft, nontender, nondistended. : No bladder distention. EXTREMITIES: Trace bilateral lower leg edema. SKIN: Warm. No cyanosis. PSYCHIATRIC: Normal mood, normal affect. NEUROLOGIC: Able to feel soft touch in feet. LABORATORY DATA: Labs from yesterday, CBC: WBC 7.1, hemoglobin 12.6, hematocrit 35.7, platelets 276. Chemistry panel: Sodium 137, potassium 4.0, chloride 95, bicarb 31, BUN 22, creatinine 2.8, glucose 485, calcium 9.5, albumin 3.8. ASSESSMENT AND PLAN: 1. End-stage renal disease, on hemodialysis, relatively stable electrolyte and volume status. The patient does tend to gain significant amount of fluid weight between dialysis sessions; we will continue routine hemodialysis every Wednesday, Wednesday, and Wednesday with goal ultrafiltration to achieve dry weight of 116 kg. 2. Left foot infection concerned for possible osteomyelitis; the patient is currently on antibiotics with ceftaroline 200 mg every 12 hours, correctly dosed for end-stage renal disease; the patient is also running low-grade temperature of 99.3; awaiting blood culture results. We will discuss with ID regarding outpatient antibiotic plan. 3. Hypertensive end-stage renal disease. Blood pressure currently elevated, although the patient likely did not get her blood pressure meds yesterday; we will continue with home antihypertensive blood pressure regimen including diuretics with torsemide 100 mg every 12 hours and metolazone 10 mg every 12 hours. 4. Anemia of end-stage renal disease. Hemoglobin actually higher than goal, lately holding Aranesp. 5. Chronic kidney disease, mineral bone disorder. The patient has been having issues with high phosphorus; continue sevelamer 1600 mg with each meal. 6. Diabetes. Blood sugars have been uncontrolled; the patient was recently switched to 3 times a day insulin regimen by her PMD; need to ensure blood sugars under 200. 7. Coronary artery disease, extensive cardiac history at a relatively young age; the patient also with mild systolic dysfunction; need to maintain the patient on beta blockers and diuretics and LESTER inhibitors. Thank you for this referral. We will be following up closely. Kalia Sultana MD
--- NOTE | 2017-11-06 23:28 | CP.PCM.PN ---
Objective - Vital Signs/Intake and Output Vital Signs (last 24 hours): Temp Pulse Resp BP Pulse Ox 98.4 F 60 20 192/95 H 100 11/06/17 22:37 11/06/17 22:52 11/06/17 22:37 11/06/17 22:52 11/06/17 22:37 Intake and Output: 11/06/17 11/07/17 18:59 06:59 Intake Total 600 Balance 600 - Medications Medications: Current Medications Albuterol/Ipratropium (Duoneb 3 Mg/0.5 Mg (3 Ml) Ud) 3 ml IH QID PRN PRN Reason: Shortness of Breath Atorvastatin Calcium (Lipitor) 20 mg PO DIN [facility] Last Admin: 11/06/17 18:33 Dose: 20 mg Clonidine HCl (Catapres) 0.1 mg PO Q6H PRN PRN Reason: Systolic Blood Pressure Clonidine HCl (Catapres) 0.2 mg PO Q8H [facility] Fenofibrate (Tricor) 48 mg PO DAILY [facility] Last Admin: 11/06/17 09:40 Dose: 48 mg Ceftaroline Fosamil 200 mg/ (Sodium Chloride) 50 mls @ 50 mls/hr IVPB Q12H [facility] PRN Reason: Protocol Stop: 11/12/17 20:46 Last Admin: 11/06/17 21:10 Dose: 50 mls/hr Insulin Detemir (Levemir) 10 unit SC BID [facility] Last Admin: 11/06/17 18:33 Dose: 10 unit Insulin Human Lispro (Humalog Low) 0 units SC ACHS [facility] PRN Reason: Protocol Last Admin: 11/06/17 18:32 Dose: 1 units Insulin Human Lispro (Humalog) 7 units SC AC [facility] Last Admin: 11/06/17 18:31 Dose: 7 units Lisinopril (Zestril) 40 mg PO DAILY [facility] Last Admin: 11/06/17 09:37 Dose: 40 mg Metolazone (Zaroxolyn) 10 mg PO Q12H [facility] Last Admin: 11/06/17 09:38 Dose: 10 mg Metoprolol Tartrate (Lopressor) 50 mg PO BID [facility] Last Admin: 11/06/17 18:18 Dose: 50 mg Levocetirizine Dihydrochloride [ Levocetirizine Dihydrochloride] 5 mg PO DAILY [facility] Ondansetron HCl (Zofran Inj) 4 mg IVP Q6H PRN PRN Reason: Nausea/Vomiting Pregabalin (Lyrica) 75 mg PO BID [facility] Last Admin: 11/06/17 18:17 Dose: 75 mg Sevelamer HCl (Renagel) 1,600 mg PO WM [facility] Last Admin: 11/06/17 18:17 Dose: 1,600 mg Torsemide (Demadex) 100 mg PO Q12H [facility] Last Admin: 11/06/17 21:10 Dose: 100 mg
--- NOTE | 2017-11-06 23:36 | CARD ---
APPROVED REPORT EKG Measurement Heart [id number] CT [id number] <Conclusion> Normal sinus rhythm with sinus arrhythmia Incomplete left bundle branch block ST & T wave abnormality, consider lateral ischemia Prolonged QT Abnormal ECG
--- NOTE | 2017-11-07 00:58 | CP.PCM.PN ---
Subjective - Date & Time of Evaluation Date of Evaluation: 11/07/17 Time of Evaluation: 00:54 - Subjective Subjective: Nurse calls and tells that patient's bloos pressure is 192/95. Patient was seen bedside. Complains of little headache. Has no other complaints. Denies dizziness, nausea, chest pain, sob, paraesthesia. Medical record was reviewed. This 47 year old woman is admitted with right foot cellulitis/ulcer. Has PMH of NIDDM, HTN,CHF,CAD,S/P CABG, stents, HLD, ESRD on dialysis, obesity, allergy to morphine. Objective - Vital Signs/Intake and Output Vital Signs (last 24 hours): Temp Pulse Resp BP Pulse Ox 98.4 F 60 20 192/95 H 100 11/06/17 22:37 11/06/17 22:52 11/06/17 22:37 11/06/17 22:52 11/06/17 22:37 Intake and Output: 11/06/17 11/07/17 18:59 06:59 Intake Total 600 Balance 600 - Medications Medications: Current Medications Albuterol/Ipratropium (Duoneb 3 Mg/0.5 Mg (3 Ml) Ud) 3 ml IH QID PRN PRN Reason: Shortness of Breath Atorvastatin Calcium (Lipitor) 20 mg PO DIN [facility] Last Admin: 11/06/17 18:33 Dose: 20 mg Clonidine HCl (Catapres) 0.1 mg PO Q6H PRN PRN Reason: Systolic Blood Pressure Clonidine HCl (Catapres) 0.2 mg PO Q8H [facility] Fenofibrate (Tricor) 48 mg PO DAILY [facility] Last Admin: 11/06/17 09:40 Dose: 48 mg Ceftaroline Fosamil 200 mg/ (Sodium Chloride) 50 mls @ 50 mls/hr IVPB Q12H [facility] PRN Reason: Protocol Stop: 11/12/17 20:46 Last Admin: 11/06/17 21:10 Dose: 50 mls/hr Insulin Detemir (Levemir) 10 unit SC BID [facility] Last Admin: 11/06/17 18:33 Dose: 10 unit Insulin Human Lispro (Humalog Low) 0 units SC ACHS [facility] PRN Reason: Protocol Last Admin: 11/06/17 18:32 Dose: 1 units Insulin Human Lispro (Humalog) 7 units SC AC [facility] Last Admin: 11/06/17 18:31 Dose: 7 units Lisinopril (Zestril) 40 mg PO DAILY [facility] Last Admin: 11/06/17 09:37 Dose: 40 mg Metolazone (Zaroxolyn) 10 mg PO Q12H [facility] Last Admin: 11/06/17 09:38 Dose: 10 mg Metoprolol Tartrate (Lopressor) 50 mg PO BID [facility] Last Admin: 11/06/17 18:18 Dose: 50 mg Levocetirizine Dihydrochloride [ Levocetirizine Dihydrochloride] 5 mg PO DAILY [facility] Ondansetron HCl (Zofran Inj) 4 mg IVP Q6H PRN PRN Reason: Nausea/Vomiting Pregabalin (Lyrica) 75 mg PO BID [facility] Last Admin: 11/06/17 18:17 Dose: 75 mg Sevelamer HCl (Renagel) 1,600 mg PO WM [facility] Last Admin: 11/06/17 18:17 Dose: 1,600 mg Torsemide (Demadex) 100 mg PO Q12H [facility] Last Admin: 11/06/17 21:10 Dose: 100 mg - Labs Labs: Micro Results 11/05/17 16:15 Drainage Gram Stain - Final 11/05/17 16:00 Blood-Venous Blood Culture - Preliminary NO GROWTH AFTER 24 HOURS 11/05/17 15:45 Blood-Venous Blood Culture - Preliminary NO GROWTH AFTER 24 HOURS Most Recent Lab Values WBC 7.1 10^3/ul (4.5-11.0) D 11/05/17 14:40 RBC 3.73 10^6/uL (3.5-6.1) 11/05/17 14:40 Hgb 12.6 g/dL (12.0-16.0) D 11/05/17 14:40 Hct 35.7 % (36.0-48.0) L 11/05/17 14:40 MCV 95.7 fl (80.0-105.0) 11/05/17 14:40 MCH 33.8 pg (25.0-35.0) 11/05/17 14:40 MCHC 35.3 g/dl (31.0-37.0) 11/05/17 14:40 RDW 13.0 % (11.5-14.5) 11/05/17 14:40 Plt Count 276 10^3/uL (120.0-450.0) 11/05/17 14:40 MPV 9.4 fl (7.0-11.0) 11/05/17 14:40 Gran % 76.7 % (50.0-68.0) H 11/05/17 14:40 Lymph % (Auto) 13.6 % (22.0-35.0) L 11/05/17 14:40 [place] % (Auto) 6.7 % (1.0-6.0) H 11/05/17 14:40 Eos % (Auto) 2.9 % (1.5-5.0) 11/05/17 14:40 Baso % (Auto) 0.1 % (0.0-3.0) 11/05/17 14:40 Gran # 5.47 (1.4-6.5) 11/05/17 14:40 Lymph # (Auto) 1.0 (1.2-3.4) L 11/05/17 14:40 [place] # (Auto) 0.5 (0.1-0.6) 11/05/17 14:40 Eos # (Auto) 0.2 (0.0-0.7) 11/05/17 14:40 Baso # (Auto) 0.01 K/mm3 (0.0-2.0) 11/05/17 14:40 ESR 108 mm/hr (0.0-20.0) H 11/05/17 14:40 Sodium 137 mmol/L (132-148) 11/05/17 14:40 Potassium 4.0 mmol/L (3.6-5.0) 11/05/17 14:40 Chloride 95 mmol/L (98-107) L 11/05/17 14:40 Carbon Dioxide 31 mmol/L (21-33) 11/05/17 14:40 Anion Gap 15 (10-20) 11/05/17 14:40 BUN 22 mg/dL (7-21) H 11/05/17 14:40 Creatinine 2.8 mg/dl (0.7-1.2) H 11/05/17 14:40 Est GFR ( Amer) 22 11/05/17 14:40 Est GFR (Non-Af Amer) 18 11/05/17 14:40 POC Glucose (mg/dL) 196 mg/dL (65-110) H 11/06/17 21:04 Random Glucose 485 mg/dL (70-110) H* 11/05/17 14:40 Calcium 9.5 mg/dL (8.4-10.5) 11/05/17 14:40 Total Bilirubin 0.4 mg/dL (0.2-1.3) 11/05/17 14:40 AST 29 U/L (14-36) 11/05/17 14:40 ALT 22 U/L (7-56) 11/05/17 14:40 Alkaline Phosphatase 92 U/L (38-126) 11/05/17 14:40 C-Reactive Protein 14.80 mg/L (0.0-9.9) H 11/05/17 14:40 NT-Pro-B Natriuret Pep 74126 pg/mL (0-450) H 11/05/17 14:40 Total Protein 7.7 g/dL (5.8-8.3) 11/05/17 14:40 Albumin 3.8 g/dL (3.0-4.8) 11/05/17 14:40 Globulin 3.9 gm/dL 11/05/17 14:40 Albumin/Globulin Ratio 1.0 (1.1-1.8) L 11/05/17 14:40 Beta HCG, Quant 7.83 mIU/mL (0-6.15) H 11/05/17 14:40 Urine HCG, Qual Negative (NEGATIVE) 11/06/17 08:00 - Constitutional Appears: Well, No Acute Distress - Head Exam Head Exam: ATRAUMATIC, NORMAL INSPECTION, NORMOCEPHALIC - Eye Exam Eye Exam: Normal appearance - ENT Exam ENT Exam: Normal External Ear Exam - Neck Exam Neck Exam: Normal Inspection - Respiratory Exam Respiratory Exam: NORMAL BREATHING PATTERN - Cardiovascular Exam Cardiovascular Exam: absent: JVD - GI/Abdominal Exam GI & Abdominal Exam: absent: Distended - Rectal Exam Rectal Exam: Deferred - Exam Additional comments: Deferred. - Back Exam Back Exam: NORMAL INSPECTION - Neurological Exam Neurological Exam: Alert, Awake - Psychiatric Exam Psychiatric exam: Normal Affect, Normal Mood - Skin Skin Exam: Normal Color Assessment and Plan - Assessment and Plan (Free Text) Assessment: Elevated blood pressure reading. HTN. CAD. CHF. IDDM. Obesity. ESRD on HD. HLD. Plan: Cloindine 0.2mg PO x 1. Continue present management.
--- NOTE | 2017-11-07 02:31 | CON ---
DATE: LOCATION: The patient was seen earlier this morning in room 368, bed 1. CHIEF COMPLAINT: Right foot infection x1 week. HISTORY OF PRESENT ILLNESS: This is a 47-year-old female with past medical history of chronic renal failure, on hemodialysis, diabetes mellitus, coronary artery disease, myocardial infarction, hypertension, history of coronary artery bypass graft in 2013, and has a right chest wall dialysis catheter and was in the hospital last year. She is now admitted with a right foot infection x1 week duration. REVIEW OF SYSTEMS: Reveals no fevers and no chills. No nausea, no vomiting. No abdominal pain or diarrhea. PAST MEDICAL HISTORY: Significant for diabetes mellitus, coronary artery disease, myocardial infarction, hypertension, high cholesterol, chronic renal failure, on hemodialysis. PAST SURGICAL HISTORY: Revealed coronary bypass graft in 2013. MEDICATIONS: Noted, at home. ALLERGIES: THE PATIENT IS ALLERGIC TO MORPHINE. PHYSICAL EXAMINATION GENERAL: The patient is in bed, in no acute distress. VITAL SIGNS: Temperature of 99.2, pulse of 82, respiratory rate of 18, blood pressure is 150/80. HEENT: Unremarkable. NECK: Supple. LUNGS: Decreased breath sounds. HEART: Normal S1 and S2. ABDOMEN: Soft, nontender. No organomegaly. No rebound, no guarding, no masses. EXTREMITIES: Examination of foot reveals the third, fourth and fifth toes of the right foot and ecchymotic. The big toe appears to be intact. The second toe has a few blisters and . Pulses are intact. LABORATORY DATA: Reveals a white count of 7.1, hemoglobin of 12, platelets of 276. Sedimentation rate is 108. Chemistries reveal the patient has a BUN of 22, creatinine of 2.8, beta-HCG is 7.83. Blood sugar is elevated. C-reactive protein and BNP is elevated. Urinalysis is noted. Emergency room chart is reviewed. Last menstrual period was 4 years ago. The patient is not sexually active according to the patient's chart, complaining of right foot ulcer wound noticed by her grandchildren 3 days ago. The patient was given a dose of vancomycin in the emergency room, started on Zosyn. Dr. Montes's note is reviewed. Dr. Caballero's consultation is reviewed. Dr. Montes has seen the patient because of beta-HCG of 7.83. We will repeat the beta-HCG. ASSESSMENT AND PLAN: This is a 47-year-old female with diabetes, coronary artery disease, myocardial infarction, hypertension, with longstanding diabetes mellitus, coronary artery disease, hypertension, chronic renal failure, on hemodialysis, now with a right foot third, fourth, and fifth toe diabetic foot ulcer and cellulitis, must rule out underlying osteomyelitis and underlying peripheral vascular disease in the face of coronary artery disease, renal failure. The patient had a plain x-ray of the foot and at least as per Dr. Cardenas's the patient is not sexually active. is less likely. Treat the patient with meropenem. The patient was already given a dose of vancomycin. Because of the chronic renal failure and volume overload, we will discontinue the Zosyn to minimize volume fluid overload. Vascular consultation, podiatric consultation. The patient's dose of vancomycin was given in the emergency room yesterday. Podiatry and Vascular consultation, antibiotics would be adjusted according to the renal failure. We will follow closely with you. We will try to resolve the issue, should have a electrician marine regarding the issue, although I doubt that she is . Actually, the patient was started by Dr. Luna on ceftaroline. We will continue ceftaroline and pending culture results. Merritt Luo MD
--- NOTE | 2017-11-07 02:42 | PN ---
DATE: 11/06/2017 SUBJECTIVE: Patient is clinically stable, sitting on the edge of the bed. She is eating, in no distress. Seen by Podiatry consult. Currently on IV Teflaro. No respiratory distress. No other complaints. PHYSICAL EXAMINATION: VITAL SIGNS: Temperature is 99.3, heart rate 77, blood pressure 158/82, respirations 20, saturation 96% on room air. Patient is also using BiPAP machine, nasal cannula while she is asleep. HEAD AND NECK: Normal. No JVD. No thyromegaly. CHEST: Clear. Good air entry. CARDIAC: First sound and second sound normal. ABDOMEN: Soft, nontender. EXTREMITIES: No edema. Lower extremity exam, the right foot is wrapped with gauze and just seen by Podiatry. NEUROLOGIC: Patient has nonfocal exam. She is alert, awake, and oriented x3. LABORATORY STUDY: Noted for blood sugar went down to 242 and 289, insulin adjusted. IMPRESSION AND PLAN: 1. Cellulitis, right foot. Continue to follow up, continue local wound care, IV antibiotics. 2. Chronic renal failure, on hemodialysis. , a foster care social worker, taking care of the dialysis and adjustment of her medications. 3. Insulin-dependent diabetes. Continue Levemir and Humalog and sliding scale. 4. History of congestive heart failure, continue hemodialysis, continue Zaroxolyn 10 mg p.o. every 12, and continue other medication including Lopressor, aspirin, Demadex 100 mg p.o. every 12 and we will follow up clinically. 6. Hypertension. She is getting Catapres 0.2 mg b.i.d., Zestril, Lopressor. Stable, pressure is controlled. We will follow up clinically. Continue current therapy. CURRENT MEDICATIONS: Levocetirizine 5 mg once a day, Catapres 0.2 mg p.o. b.i.d., Teflaro 200 IV every 12, Demadex 100 mg p.o. every 12, Humalog 7 units before meals, insulin coverage algorithm, Levemir 10 units b.i.d., Lipitor 20 p.o. at bedtime, Lopressor 50 b.i.d., Lyrica 75 b.i.d., Renagel 1600 mg with meals, TriCor 48 mg p.o. daily, Zaroxolyn 10 mg p.o. every 12, Zestril 40 mg p.o. daily, and Zofran 4 mg IV every 6 hour p.r.n. Continue current therapy. Regan Morales MD
--- NOTE | 2017-11-07 07:46 | HP ---
DATE OF EXAM: HISTORY OF PRESENT ILLNESS: This is a 47-year-old female with past medical history of chronic renal failure, end-stage renal disease on hemodialysis, congestive heat failure, diabetes, hypercholesterolemia, came in complaining of right foot ulceration that has been noted 3 days ago by a grandchildren. The patient had peripheral neuropathy due to the diabetes which making her not healing well, not having sensation in her both lower extremity in the toes area. The patient has not been able to check them, but she saw them and change of color, being ulcerated. She denied any fever,any chills,any nausea, vomiting, or rigors or any other complaints. PAST MEDICAL HISTORY: As I mentioned, she does have end-stage renal disease on hemodialysis, hypertension, diabetes, insulin dependence, hypercholesterolemia, CHF, also she has diabetes for 25 years. She is menopause. She has last period 4 years ago, not sexually active. Cardiac, [place], hypertension, plus above that I mentioned. HOME MEDICATION: She takes clonidine 0.2 mg b.i.d., Zocor 40 mg p.o. daily, Renagel 1600 mg p.o. twice a day with meals, Lyrica 75 mg b.i.d., Lopressor 50 mg b.i.d., Zestril 10 mg p.o. daily, p.o. daily, Levemir 17 units subcutaneous a.m. and 10 units every night at bedtime, and Novolog she takes 10 units before meals and at bedtime. The patient also take Advair. She take Tricor, Bumex 2 mg p.o. b.i.d., aspirin 81 mg p.o daily, HydroDIURIL 25 mg p.o. daily. SOCIAL HISTORY: She has children and grandchildren. She does not use any drugs. No alcohol. No smoking, never smoked. IMMUNIZATION: She had hepatitis B vaccine, she had tetanus Tdap vaccine also. PHYSICAL EXAMINATION: VITAL SIGNS: Temperature is 99.2, heart rate 82, blood pressure is 141/84, respirations 20, saturation 97% on room air. HEAD AND NECK: Normal. No JVD, no thyromegaly. CHEST: Clear. No wheezing. CARDIAC: First sounds and second sounds normal. ABDOMEN: Soft, obese, nontender. EXTREMITIES: The patient has both feet mild edema. The patient has lower extremity right foot has third to the fifth toes the surface of the macerations/ulcerations of the toes with blisters with redness and cellulitic changes. Pulse is intact in both sides. NEUROLOGIC: Normal. The patient is alert,awake, oriented x3. LABORATORY DATA: The patient had white counts 7.1, hemoglobin 12.6, hematocrit 35.7, platelet 276. Chemistry malone, she has sodium 137, potassium 4,chloride 95, bicarb 31, BUN 22, creatinine 2.8,blood sugar 485. Liver function test is normal. C-reactive protein 15.8, proBNP 17,000. Beta-hCG was reported 7.8, of unclear significance, and clinically irrelevant. The other things we done here; she also had extremity ultrasound which was reported negative. No evidence of DVT in the visualize segment of lower extremity. Also patient had right foot x-ray, which shows hammertoe deformities and no evidence of fracture and no evidence of osteomyelitis, some soft tissue swelling without acute articular or osseous abnormality. IMPRESSION AND PLAN: 1. A 47-year-old female, came in with diabetic foot infection, cellulitis. We will admit the patient. We will get Infectious Disease consult and Podiatry consult. Infectious Disease put the patient already on Teflaro 200 mg q. 12. We will follow up with him on that. Podiatry consult with Dr. Porras and Dr. Caballero for foot evaluation to evaluate for possible osteomyelitis. We will continue current therapy, wound dressing and IV antibiotic for now. We will follow up clinically. 2. Inulin dependent diabetes; out of control blood sugar. We will resume insulin Humalog 7 units. We will resume the 7 units before meals plus insulin coverage algorithm, Levemir, we will put her on 10 units b.i.d. 3. Hypertension, continue Lopressor b.i.d. and Zestril 10 mg p.o. daily. 4. Chronic renal failure. We will get hemodialysis and continue current therapy. Continue diuretics. Follow up clinically. We will get a Podiatry and Infectious Disease consult, and Dr. Sultana for renal dialysis. Continue current therapy. Regan Morales MD
[2017-11-07] MEDS: Insulin Lispro (humaLOG) LOW Coverage SC SCH ×4 (08:29→21:50)
[2017-11-07] MEDS: Insulin Lispro 1 UNITS/0.01 ML SC SCH ×3 (08:30→16:15)
[2017-11-07] MEDS: metOLazone 5 MG TAB PO SCH ×2 (10:03→21:49)
[2017-11-07] MEDS: Insulin Detemir 100 units/ml Vial (Levemir) SC SCH ×2 (10:04→17:54)
--- NOTE | 2017-11-07 12:57 | CP.PCM.PN ---
Subjective - Date & Time of Evaluation Date of Evaluation: 11/07/17 Time of Evaluation: 12:49 - Subjective Subjective: Podiatry Progress note: Dr. Porras/ Dr. Caballero 47 year old female seen and evaluated at bedside this morning for right foot macerated digits and blistering digits 2-5 on the right foot. Patient is AAOx3 and is in NAD. Patient denies of any acute overnight events. Patient denies of any pain to her feet today. Denies of any F/N/V/C/SOB/CP/headache. Denies of any other pedal complains now. Objective - Vital Signs/Intake and Output Vital Signs (last 24 hours): Temp Pulse Resp BP Pulse Ox 98 F 60 20 134/78 99 11/07/17 06:00 11/07/17 06:31 11/07/17 06:00 11/07/17 10:03 11/07/17 06:00 Intake and Output: 11/07/17 11/07/17 06:59 18:59 Intake Total 840 Balance 840 - Medications Medications: Current Medications Albuterol/Ipratropium (Duoneb 3 Mg/0.5 Mg (3 Ml) Ud) 3 ml IH QID PRN PRN Reason: Shortness of Breath Atorvastatin Calcium (Lipitor) 20 mg PO DIN [facility] Last Admin: 11/06/17 18:33 Dose: 20 mg Clonidine HCl (Catapres) 0.1 mg PO Q6H PRN PRN Reason: Systolic Blood Pressure Clonidine HCl (Catapres) 0.2 mg PO Q8H [facility] Last Admin: 11/07/17 06:31 Dose: 0.2 mg Fenofibrate (Tricor) 48 mg PO DAILY [facility] Last Admin: 11/07/17 10:08 Dose: 48 mg Ceftaroline Fosamil 200 mg/ (Sodium Chloride) 50 mls @ 50 mls/hr IVPB Q12H [facility] PRN Reason: Protocol Stop: 11/12/17 20:46 Last Admin: 11/07/17 10:01 Dose: 50 mls/hr Insulin Detemir (Levemir) 10 unit SC BID [facility] Last Admin: 11/07/17 10:04 Dose: 10 unit Insulin Human Lispro (Humalog Low) 0 units SC ACHS [facility] PRN Reason: Protocol Last Admin: 11/07/17 11:58 Dose: 2 units Insulin Human Lispro (Humalog) 7 units SC AC [facility] Last Admin: 11/07/17 11:59 Dose: 7 units Lisinopril (Zestril) 40 mg PO DAILY [facility] Last Admin: 11/07/17 10:03 Dose: 40 mg Metolazone (Zaroxolyn) 10 mg PO Q12H [facility] Last Admin: 11/07/17 10:03 Dose: 10 mg Metoprolol Tartrate (Lopressor) 50 mg PO BID [facility] Last Admin: 11/07/17 10:03 Dose: 50 mg Levocetirizine Dihydrochloride [ Levocetirizine Dihydrochloride] 5 mg PO DAILY [facility] Ondansetron HCl (Zofran Inj) 4 mg IVP Q6H PRN PRN Reason: Nausea/Vomiting Pregabalin (Lyrica) 75 mg PO BID [facility] Last Admin: 11/07/17 10:03 Dose: 75 mg Sevelamer HCl (Renagel) 1,600 mg PO WM [facility] Last Admin: 11/07/17 11:57 Dose: 1,600 mg Torsemide (Demadex) 100 mg PO Q12H [facility] Last Admin: 11/07/17 10:02 Dose: 100 mg - Constitutional Appears: Well, Non-toxic, No Acute Distress - Extremities Exam Additional comments: Right LE focused exam: VASC: DP/PT pulses are non-palpable, Cap refill time: approx 3 sec to all digits , Temp gradient: warm to cool from proximal to distal, no pedal hair present, no pitting or non-pitting edema noted DERM: Maceration in all 4 interspaces with sero-sanguineous bullae noted on the distal plantar medial aspect of digits 2-4, 2nd digit appears to have indurated hyperpigmented roof over the bullae site, all bulle appear flatulent with no active drainage, no malodor, no breaks in the dermal layer, no active bleeding or purulence, no erythema extending proximally, no clinical suspicion of active infection NEURO: Protective sensation grossly diminished ORTHO: No pain on palpation of the digits, no pain on ROM at the level of the MTPJ on the right foot - Neurological Exam Neurological Exam: Alert, Awake, Oriented x3 - Psychiatric Exam Psychiatric exam: Normal Affect, Normal Mood Assessment and Plan - Assessment and Plan (Free Text) Assessment: 47 year old female with macerated digits 2-5 on the right and non-infected sero- sanguineous bullae Plan: Patient seen and evaluated Discussed with attending Dr. Porras Site cleaned with Saline and dressing applied using betadine, maxorb, DSD X-rays of the foot evaluated: no acute signs of OM or soft tissue emphysema MRI of the right foot ordered: pending SUZETTE/PVR from 07/02 reviewed Medical management as per primary Podiatry will follow patient while in-house
--- NOTE | 2017-11-07 13:33 | MRI ---
PROCEDURE: RIGHT FOOT MRI WITHOUT CONTRAST HISTORY: right diabetic foot uclers COMPARISON: Right foot radiographs 11/05/2017. TECHNIQUE: An MR examination of the right foot was performed primarily capturing the forefoot and midfoot anatomy and sparing the hindfoot in multiplanar multisequential technique. Intravenous gadolinium was not administered as per request. FINDINGS: Imaging of the distal segments of the digits is limited as failure saturation occurs in the STIR sequence in this location frequently. These areas therefore limited evaluation but there is no definitive pattern that would indicate osteomyelitis throughout the forefoot and midfoot as imaged. Moderate dorsal soft tissue edema is appreciated with minimal in edema is seen in the deep subcutaneous fat of the midfoot abutting the plantar fascia. Plantar fasciitis not completely excluded. The flexor and extensor tendons appear normal in signal with no acute tear evident grossly. Moderate degenerative changes seen throughout the joints of the midfoot as well as throughout the interphalangeal joints with mild degenerative changes at the 2nd through 5th metatarsophalangeal joints, moderate to severe at the 1st metatarsophalangeal joint. IMPRESSION: No definitive pattern of osteomyelitis with limitations on imaging the distal phalanges of the digits. If osteomyelitis is clinically suspected he in the distal phalanges of any of the disease, then consideration of follow-up three-phase nuclear bone scan is advised for additional characterization. Dorsal soft tissues edema diffusely noted. No definite abscess identified. Limited plantar soft tissue edema superficial to the plantar fascia and may reflect plantar fasciitis. Degenerative joint changes diffusely noted.
--- NOTE | 2017-11-07 17:41 | CP.PCM.PN ---
Subjective - Date & Time of Evaluation Date of Evaluation: 11/07/17 Time of Evaluation: 13:00 - Subjective Subjective: 47 yo F w/ htn, dm, severe CAD s/p CABG, stent (10/2016), morbid obesity, and ESRD on HD (MWF), admitted with R foot infection; Reports feeling well; no increased sob; only ambulating to bathroom; Objective - Vital Signs/Intake and Output Vital Signs (last 24 hours): Temp Pulse Resp BP Pulse Ox 97.6 F 60 20 127/71 98 11/07/17 16:29 11/07/17 16:29 11/07/17 16:29 11/07/17 16:29 11/07/17 16:29 Intake and Output: 11/07/17 11/07/17 06:59 18:59 Intake Total 840 680 Balance 840 680 - Medications Medications: Current Medications Albuterol/Ipratropium (Duoneb 3 Mg/0.5 Mg (3 Ml) Ud) 3 ml IH QID PRN PRN Reason: Shortness of Breath Atorvastatin Calcium (Lipitor) 20 mg PO DIN [facility] Last Admin: 11/07/17 16:17 Dose: 20 mg Clonidine HCl (Catapres) 0.1 mg PO Q6H PRN PRN Reason: Systolic Blood Pressure Clonidine HCl (Catapres) 0.2 mg PO Q8H [facility] Last Admin: 11/07/17 16:16 Dose: 0.2 mg Fenofibrate (Tricor) 48 mg PO DAILY [facility] Last Admin: 11/07/17 10:08 Dose: 48 mg Ceftaroline Fosamil 200 mg/ (Sodium Chloride) 50 mls @ 50 mls/hr IVPB Q12H [facility] PRN Reason: Protocol Stop: 11/12/17 20:46 Last Admin: 11/07/17 10:01 Dose: 50 mls/hr Insulin Detemir (Levemir) 10 unit SC BID [facility] Last Admin: 11/07/17 10:04 Dose: 10 unit Insulin Human Lispro (Humalog Low) 0 units SC ACHS [facility] PRN Reason: Protocol Last Admin: 11/07/17 16:14 Dose: 1 units Insulin Human Lispro (Humalog) 7 units SC AC [facility] Last Admin: 11/07/17 16:15 Dose: 7 units Lisinopril (Zestril) 40 mg PO DAILY [facility] Last Admin: 11/07/17 10:03 Dose: 40 mg Metolazone (Zaroxolyn) 10 mg PO Q12H [facility] Last Admin: 11/07/17 10:03 Dose: 10 mg Metoprolol Tartrate (Lopressor) 50 mg PO BID [facility] Last Admin: 11/07/17 10:03 Dose: 50 mg Levocetirizine Dihydrochloride [ Levocetirizine Dihydrochloride] 5 mg PO DAILY [facility] Ondansetron HCl (Zofran Inj) 4 mg IVP Q6H PRN PRN Reason: Nausea/Vomiting Pregabalin (Lyrica) 75 mg PO BID [facility] Last Admin: 11/07/17 10:03 Dose: 75 mg Sevelamer HCl (Renagel) 1,600 mg PO WM [facility] Last Admin: 11/07/17 16:18 Dose: 1,600 mg Torsemide (Demadex) 100 mg PO Q12H [facility] Last Admin: 11/07/17 10:02 Dose: 100 mg - Constitutional Appears: Non-toxic, No Acute Distress - Eye Exam Eye Exam: absent: Scleral icterus - ENT Exam ENT Exam: Mucous Membranes Moist - Respiratory Exam Respiratory Exam: Clear to Ausculation Bilateral. absent: Respiratory Distress - Cardiovascular Exam Cardiovascular Exam: RRR, +S1, +S2 - GI/Abdominal Exam GI & Abdominal Exam: Soft. absent: Distended, Tenderness - Extremities Exam Additional comments: mild lower leg edema; - Neurological Exam Neurological Exam: Alert, Awake - Psychiatric Exam Psychiatric exam: Normal Affect, Normal Mood. absent: Agitated - Skin Skin Exam: Warm. absent: Cyanosis Assessment and Plan (1) ESRD (end stage renal disease) on dialysis Assessment & Plan: Stable electrolyte and volume status; last HD Wednesday, next for Wednesday; dry weight 116 kg; working on getting AVF creation but will have to wait until foot infection issues and settled; Status: Chronic (2) Hypertensive CKD, ESRD on dialysis Assessment & Plan: Flucutating BP control, usually very high pre-HD; diuretics changed recently to torsemide 100 mg bid and metolazone 10 mg bid on non-HD days; continue same; Status: Chronic (3) Anemia in ESRD (end-stage renal disease) Assessment & Plan: Hgb above goal, monitor; Status: Chronic (4) CAD (coronary artery disease) Assessment & Plan: s/p stress test 10 days ago that was reassuring; continue ASA and plavix per cardio; Status: Chronic (5) Congestive heart failure (CHF) Assessment & Plan: Symptomatic at times; excessive weight gains between HD treatments; trying new diuretic regimen as above; continue B-cristhian and lisinopril; Status: Acute (6) Cellulitis of foot Assessment & Plan: On certaroline, dosed for HD; awaiting ID recs for outpatient treatment; Status: Acute
[2017-11-07] MEDS ORDERED: Meropenem 500 MG in Sodium Chloride 0.9% 50 ML IVPB SCH (22:00)
--- NOTE | 2017-11-08 00:22 | PN ---
DATE: 11/07/2017 SUBJECTIVE: The patient is in bed, in no acute distress, no fevers and no chills. PHYSICAL EXAMINATION VITAL SIGNS: Temperature is 98, blood pressure is 120/70, respiratory rate 16. HEENT: Unremarkable. NECK: Supple. LUNGS: Have decreased breath sounds. HEART: Normal S1, S2. ABDOMEN: Soft, nontender. LABORATORY DATA: Reveals a white count of 7.1, hemoglobin of 12. Chemistries are noted and BUN of 22, creatinine of 2.8. Microbiology revels blood cultures, no growth. Drainage cultures are gram-negative robby. Review of orders reveals the patient to be on ceftaroline. ASSESSMENT AND PLAN: This is a 47-year-old female with diabetes mellitus, coronary artery disease, myocardial infarction, hypertension, chronic renal failure, on hemostasis, now with gram-negative right foot third, fourth and fifth cellulitis and ulcer and we sent MRI that revealed no definite osteomyelitis on imaging and we will discontinue the ceftaroline and use the meropenem, pending identification of gram-negative robby. We will adjust the meropenem to renal function of creatinine 2.8 at 500 mg IV every 12. We will follow closely with you. Merritt Luo MD
[2017-11-08] MEDS: Insulin Lispro 1 UNITS/0.01 ML SC SCH ×4 (07:55→16:48)
[2017-11-08] MEDS: Insulin Lispro (humaLOG) LOW Coverage SC SCH ×2 (07:55→11:30)
--- NOTE | 2017-11-08 09:39 | CP.PCM.PN ---
<KuldipGermania - Last Filed: 11/08/17 09:40> Subjective - Date & Time of Evaluation Date of Evaluation: 11/08/17 Time of Evaluation: 09:38 - Subjective Subjective: Podiatry Progress note: Dr. Porras/ Dr. Caballero 47 year old female seen and evaluated at bedside this morning with attending Dr. Caballero for right foot macerated blistering digits 2-5 on the right foot. Patient is AAOx3 and in NAD. Patient denies any acute overnight events. Patient denies having any pain to her feet today. Denies F/C/N/V/CP/SOB/CP/[place]. Has no other pedal complaints. Objective - Vital Signs/Intake and Output Vital Signs (last 24 hours): Temp Pulse Resp BP Pulse Ox 97.6 F 56 L 20 147/80 97 11/08/17 07:30 11/08/17 07:30 11/08/17 07:30 11/08/17 07:30 11/08/17 07:30 Intake and Output: 11/08/17 11/08/17 06:59 18:59 Intake Total 480 Balance 480 - Medications Medications: Current Medications Albuterol/Ipratropium (Duoneb 3 Mg/0.5 Mg (3 Ml) Ud) 3 ml IH QID PRN PRN Reason: Shortness of Breath Atorvastatin Calcium (Lipitor) 20 mg PO DIN [facility] Last Admin: 11/07/17 16:17 Dose: 20 mg Clonidine HCl (Catapres) 0.1 mg PO Q6H PRN PRN Reason: Systolic Blood Pressure Clonidine HCl (Catapres) 0.2 mg PO Q8H [facility] Last Admin: 11/08/17 06:10 Dose: Not Given Fenofibrate (Tricor) 48 mg PO DAILY [facility] Last Admin: 11/07/17 10:08 Dose: 48 mg Meropenem 500 mg/ Sodium (Chloride) 50 mls @ 100 mls/hr IVPB Q12 [facility] PRN Reason: Protocol Stop: 11/16/17 22:01 Last Admin: 11/07/17 21:50 Dose: 100 mls/hr Insulin Detemir (Levemir) 10 unit SC BID [facility] Last Admin: 11/07/17 17:54 Dose: 10 unit Insulin Human Lispro (Humalog Low) 0 units SC ACHS [facility] PRN Reason: Protocol Last Admin: 11/08/17 07:55 Dose: Not Given Insulin Human Lispro (Humalog) 7 units SC AC [facility] Last Admin: 11/08/17 08:06 Dose: 7 units Lisinopril (Zestril) 40 mg PO DAILY [facility] Last Admin: 11/07/17 10:03 Dose: 40 mg Metolazone (Zaroxolyn) 10 mg PO Q12H [facility] Last Admin: 11/07/17 21:49 Dose: 10 mg Metoprolol Tartrate (Lopressor) 50 mg PO BID [facility] Last Admin: 11/07/17 17:55 Dose: 50 mg Levocetirizine Dihydrochloride 5mg (Home Med) 5 mg PO DAILY [facility] Ondansetron HCl (Zofran Inj) 4 mg IVP Q6H PRN PRN Reason: Nausea/Vomiting Pregabalin (Lyrica) 75 mg PO BID [facility] Last Admin: 11/07/17 10:03 Dose: 75 mg Sevelamer HCl (Renagel) 1,600 mg PO WM [facility] Last Admin: 11/08/17 08:06 Dose: 1,600 mg Torsemide (Demadex) 100 mg PO Q12H [facility] Last Admin: 11/07/17 21:48 Dose: 100 mg - Constitutional Appears: Well, Non-toxic, No Acute Distress - Extremities Exam Additional comments: Right LE focused exam: VASC: DP/PT pulses are non-palpable, Cap refill time: approx 3 sec to all digits , Temp gradient: warm to cool from proximal to distal, no pedal hair present, no pitting or non-pitting edema noted DERM: Maceration in all 4 interspaces with sero-sanguineous bullae noted on the distal plantar medial aspect of digits 2-4, 2nd digit appears to have indurated hyperpigmented roof over the bullae site, all bulle appear flatulent with no active drainage, no malodor, no breaks in the dermal layer, no active bleeding or purulence, no erythema extending proximally, no clinical suspicion of active infection NEURO: Protective sensation grossly diminished ORTHO: No pain on palpation of the digits, no pain on ROM at the level of the MTPJ on the right foot - Neurological Exam Neurological Exam: Alert, Awake, Oriented x3 - Psychiatric Exam Psychiatric exam: Normal Affect, Normal Mood Assessment and Plan - Assessment and Plan (Free Text) Assessment: 47 year old female with macerated digits 2-5 on the right foot and non-infected sero-sanguinous bullae Plan: Patient seen and evaluated with attending Dr. Caballero Labs and vitals reviewed - VSS, afebrile Site cleaned with saline and dressing applied using betadine, adaptic, DSD X-rays of the foot evaluated: no acute signs of OM or soft tissue emphysema MRI of the right foot negative for acute osseous changes SUZETTE/PVR from 07/02 reviewed Medical management as per primary Podiatry will follow patient while in-house <Dino Caballero - Last Filed: 11/08/17 10:28> Objective - Vital Signs/Intake and Output Vital Signs (last 24 hours): Temp Pulse Resp BP Pulse Ox 97.6 F 56 L 20 147/80 97 11/08/17 07:30 11/08/17 07:30 11/08/17 07:30 11/08/17 07:30 11/08/17 07:30 Intake and Output: 11/08/17 11/08/17 06:59 18:59 Intake Total 480 Balance 480 - Medications Medications: Current Medications Albuterol/Ipratropium (Duoneb 3 Mg/0.5 Mg (3 Ml) Ud) 3 ml IH QID PRN PRN Reason: Shortness of Breath Atorvastatin Calcium (Lipitor) 20 mg PO DIN [facility] Last Admin: 11/07/17 16:17 Dose: 20 mg Clonidine HCl (Catapres) 0.1 mg PO Q6H PRN PRN Reason: Systolic Blood Pressure Clonidine HCl (Catapres) 0.2 mg PO Q8H [facility] Last Admin: 11/08/17 06:10 Dose: Not Given Fenofibrate (Tricor) 48 mg PO DAILY [facility] Last Admin: 11/07/17 10:08 Dose: 48 mg Meropenem 500 mg/ Sodium (Chloride) 50 mls @ 100 mls/hr IVPB 1800 [facility] PRN Reason: Protocol Insulin Detemir (Levemir) 10 unit SC BID [facility] Last Admin: 11/07/17 17:54 Dose: 10 unit Insulin Human Lispro (Humalog Low) 0 units SC ACHS [facility] PRN Reason: Protocol Last Admin: 11/08/17 07:55 Dose: Not Given Insulin Human Lispro (Humalog) 7 units SC AC [facility] Last Admin: 11/08/17 08:06 Dose: 7 units Lisinopril (Zestril) 40 mg PO DAILY [facility] Last Admin: 11/07/17 10:03 Dose: 40 mg Metolazone (Zaroxolyn) 10 mg PO Q12H [facility] Last Admin: 11/07/17 21:49 Dose: 10 mg Metoprolol Tartrate (Lopressor) 50 mg PO BID [facility] Last Admin: 11/07/17 17:55 Dose: 50 mg Levocetirizine Dihydrochloride 5mg (Home Med) 5 mg PO DAILY [facility] Ondansetron HCl (Zofran Inj) 4 mg IVP Q6H PRN PRN Reason: Nausea/Vomiting Pregabalin (Lyrica) 75 mg PO BID [facility] Last Admin: 11/07/17 10:03 Dose: 75 mg Sevelamer HCl (Renagel) 1,600 mg PO WM [facility] Last Admin: 11/08/17 08:06 Dose: 1,600 mg Torsemide (Demadex) 100 mg PO Q12H [facility] Last Admin: 11/07/17 21:48 Dose: 100 mg Attending/Attestation - Attestation I have personally seen and examined this patient.: Yes I have fully participated in the care of the patient.: Yes I have reviewed all pertinent clinical information, including history, physical exam and plan: Yes
[2017-11-08] MEDS: metOLazone 5 MG TAB PO SCH (10:00)
[2017-11-08] MEDS ORDERED: Meropenem 500 MG in Sodium Chloride 0.9% 50 ML IVPB SCH (10:28)
[2017-11-08] MEDS: Insulin Detemir 100 units/ml Vial (Levemir) SC SCH ×2 (10:30→16:49)
[2017-11-08 11:38] LABS: BASO # 0.03 K/mm3 (0.0-2.0); BASO % 0.5 % (0.0-3.0); EOS # 0.2 (0.0-0.7); EOS % 3.7 % (1.5-5.0); GRAN # 4.92 (1.4-6.5); GRAN % 75.2 % (50.0-68.0); HEMOGLOBIN 11.8 g/dL (12.0-16.0); LYMPH % 15.2 % (22.0-35.0); MEAN CELL VOLUME 95.9 fl (80.0-105.0); MEAN CORPUSCULAR HEMOGLOBIN 32.5 pg (25.0-35.0); MEAN CORPUSCULAR HGB CONC 33.9 g/dl (31.0-37.0); MEAN PLATELET VOLUME 9.3 fl (7.0-11.0); MONO # 0.4 (0.1-0.6); MONO % 5.4 % (1.0-6.0); RBC 3.63 10^6/uL (3.5-6.1); WHITE BLOOD COUNT 6.5 10^3/ul (4.5-11.0)
[2017-11-08 11:47] LABS: ALBUMIN 3.4 g/dL (3.0-4.8); CALCIUM 9.4 mg/dL (8.4-10.5)
--- NOTE | 2017-11-08 14:14 | PN ---
DATE: 11/08/2017 SUBJECTIVE: The patient has no complaints of any chest pain. No shortness of breath. No headaches or dizziness. PHYSICAL EXAMINATION: VITAL SIGNS: Temperature is 97.6, pulse of 60, blood pressure 127/71, respirations 20. GENERAL: The patient is lying in bed, flat, comfortable. HEENT: No oral lesion. Anicteric sclerae. Moist mucosa. NECK: No JVD, adenopathy, or thyromegaly. CARDIOVASCULAR: S1 and S2, regular. No murmurs, rubs, or gallops. LUNGS: Clear to auscultation bilaterally. No wheeze, rales, or rhonchi. ABDOMEN: Bowel sounds are positive, soft, nontender and nondistended. EXTREMITIES: No cyanosis, clubbing or edema. ASSESSMENT: 1. End-stage renal disease, on hemodialysis on Wednesday, Wednesday, and Wednesday. 2. Coronary artery disease, status post coronary artery bypass graft. 3. Hypertension. 4. Right foot third, fourth, and fifth toe cellulitis and ulcer. PLAN: The patient is currently comfortable. She is going for dialysis today. She is on clonidine for hypertension. She is on nebulizer treatment. She is on insulin for her diabetes. She is going to continue with Lipitor for dyslipidemia. The patient is on Renagel for her secondary hyperparathyroidism. She is on fenofibrate for her dyslipidemia. She is on lisinopril for her hypertension. She is currently comfortable and not in any pain. Edy Felix MD
[2017-11-08 16:05] VITALS: BP 145/65; PULSE 68; RESP 18; TEMP 98.5; O2SAT 99
--- NOTE | 2017-11-08 18:26 | CP.PCM.PN ---
Subjective - Date & Time of Evaluation Date of Evaluation: 11/08/17 Time of Evaluation: 11:50 - Subjective Subjective: Comfortable, no fevers. Objective - Vital Signs/Intake and Output Vital Signs (last 24 hours): Temp Pulse Resp BP Pulse Ox 97.6 F 56 L 20 147/80 97 11/08/17 07:30 11/08/17 07:30 11/08/17 07:30 11/08/17 07:30 11/08/17 07:30 Intake and Output: 11/08/17 11/08/17 06:59 18:59 Intake Total 480 Balance 480 - Medications Medications: Current Medications Albuterol/Ipratropium (Duoneb 3 Mg/0.5 Mg (3 Ml) Ud) 3 ml IH QID PRN PRN Reason: Shortness of Breath Atorvastatin Calcium (Lipitor) 20 mg PO DIN [facility] Last Admin: 11/07/17 16:17 Dose: 20 mg Clonidine HCl (Catapres) 0.1 mg PO Q6H PRN PRN Reason: Systolic Blood Pressure Clonidine HCl (Catapres) 0.2 mg PO Q8H [facility] Last Admin: 11/08/17 06:10 Dose: Not Given Fenofibrate (Tricor) 48 mg PO DAILY [facility] Last Admin: 11/07/17 10:08 Dose: 48 mg Meropenem 500 mg/ Sodium (Chloride) 50 mls @ 100 mls/hr IVPB 1800 [facility] PRN Reason: Protocol Insulin Detemir (Levemir) 10 unit SC BID [facility] Last Admin: 11/07/17 17:54 Dose: 10 unit Insulin Human Lispro (Humalog Low) 0 units SC ACHS [facility] PRN Reason: Protocol Last Admin: 11/08/17 07:55 Dose: Not Given Insulin Human Lispro (Humalog) 7 units SC AC [facility] Last Admin: 11/08/17 08:06 Dose: 7 units Lisinopril (Zestril) 40 mg PO DAILY [facility] Last Admin: 11/07/17 10:03 Dose: 40 mg Metolazone (Zaroxolyn) 10 mg PO Q12H [facility] Last Admin: 11/07/17 21:49 Dose: 10 mg Metoprolol Tartrate (Lopressor) 50 mg PO BID [facility] Last Admin: 11/07/17 17:55 Dose: 50 mg Levocetirizine Dihydrochloride 5mg (Home Med) 5 mg PO DAILY [facility] Ondansetron HCl (Zofran Inj) 4 mg IVP Q6H PRN PRN Reason: Nausea/Vomiting Pregabalin (Lyrica) 75 mg PO BID [facility] Last Admin: 11/07/17 10:03 Dose: 75 mg Sevelamer HCl (Renagel) 1,600 mg PO WM [facility] Last Admin: 11/08/17 08:06 Dose: 1,600 mg Torsemide (Demadex) 100 mg PO Q12H [facility] Last Admin: 11/07/17 21:48 Dose: 100 mg - Constitutional Appears: Non-toxic - Head Exam Head Exam: NORMAL INSPECTION - Respiratory Exam Respiratory Exam: Decreased Breath Sounds - Cardiovascular Exam Cardiovascular Exam: +S1, +S2 - GI/Abdominal Exam GI & Abdominal Exam: Soft. absent: Tenderness - Extremities Exam Additional comments: right foot with dressings in place Assessment and Plan - Assessment and Plan (Free Text) Plan: Assessment right foot skin and skin structure infection with Klebsiella and E. faecalis history of drug-related maculopapular rash, probably related to morphine HTN DM CAD S/P CABG chronic renal failure chronic foot ulcer on the left dyslipidemia COPD morbid obesity with BMI 48 chronic renal failure Plan patient can be switched to PO LEvaquin q other day and Augmentin 500 mg q12 to complete 7 days of therapy with outpatient follow up with Podiatry
--- NOTE | 2017-11-10 08:52 | DS ---
HISTORY OF PRESENT ILLNESS: The patient is a 47-year-old female who has insulin-dependent diabetes, chronic renal failure, on hemodialysis. She had history of coronary artery disease, bypass surgery and came in with diabetic foot infection. She had an MRI of her foot, which shows no osteomyelitis, cellulitis and Podiatry, Dr. Caballero seen the patient. Also, Infectious Disease, Dr. Luna and Dr. Luo seen the patient. The patient was started on meropenem. Given vancomycin one dose and she had been doing okay with that. She was seen on 11/08/2017 in dialysis. She was stable. Blood sugar is good in the 100-200 range. The patient otherwise doing better and was okay to be discharged on p.o. antibiotics. PHYSICAL EXAMINATION: Her physical exam on discharge is as follow: VITAL SIGNS: Temperature 98.5, heart rate 68, blood pressure 145/65, respirations 18, saturations 99%. HEAD AND NECK: Normal. No JVD. No thyromegaly. CHEST: Clear. Good air entry. CARDIAC: First sound and second sound normal. ABDOMEN: Obese. EXTREMITIES: Mild edema. Right foot, there is ulceration of the left 3 toes or 4 toes with edema, vesicles and redness, swelling. No evidence of any gangrene. NEUROLOGIC: Normal. The patient is morbidly obese and also had a catheter in her right side of the chest. LABORATORY STUDY: White count 6.5, hemoglobin 11.8, hematocrit 34.8, platelets 227. Chemistry-malone, the patient has sodium 138, potassium 4.3, chloride 99, bicarb 25, BUN 72, creatinine 8.2. The patient's blood sugar is 133 and went up to 202. The patient had phosphorus 6.5. Liver enzymes are normal. DISCHARGE DIAGNOSES: 1. Cellulitis of the right foot, right toes with no evidence of osteomyelitis. 2. Insulin-dependent diabetes. 3. Coronary artery disease, status post bypass surgery. 4. Hypercholesterolemia, hypertriglyceridemia. 5. Hypertension. 6. Morbid obesity, possible obstructive sleep apnea. It can be followed up after that. 7. Congestive heart failure. 8. Chronic renal failure, on hemodialysis. PLAN: Discharge the patient on the following medications. P.o. Levaquin every other day and continue 7 days of Augmentin b.i.d. as per ID recommendations. The patient should follow up with Dr. Caballero from Podiatry. The patient also on Catapres 0.2 mg b.i.d., Zocor 40 mg p.o. daily, Renagel 1600 mg with meals, Lyrica 75 b.i.d., Lopressor 50 b.i.d., Vistaril 10 mg p.o. daily and Zyrtec 5 mg p.o. daily, Levemir 17 units in the morning and 10 units at bedtime and FlexPen NovoLog 10 units before meals, Advair 250/50 one puff b.i.d., TriCor 54 mg p.o. daily, aspirin 81 mg p.o. daily, Zaroxolyn 2 mg every 12, Levaquin 250 every other day, Augmentin 1 tab p.o. b.i.d. for 1 week, Bactroban ointment and also continue Demadex 100 mg, which is torsemide 100 mg p.o. every 12. In addition, continue hemodialysis 3 times a week as per merchandising lead and will follow up in the office within a week. Regan Morales MD
== END 2017-11-08 18:03 | disposition home or self-care (01) | DRG 638 ==
LOC: ED 14:16 → ERH 16:06 → 5RNO 18:21
PROVIDERS: ADMIT Internal Medicine; ATTEND Internal Medicine
DX: E10.621 Type 1 diabetes mellitus with foot ulcer (principal); L03.115 Cellulitis of right lower limb; L97.519 Non-pressure chronic ulcer of other part of right foot with unspecified severity; I13.2 Hypertensive heart and chronic kidney disease with heart failure and with stage 5 chronic kidney disease, or end stage renal disease; E10.22 Type 1 diabetes mellitus with diabetic chronic kidney disease; E10.42 Type 1 diabetes mellitus with diabetic polyneuropathy; Z68.42 Body mass index [BMI] 45.0-49.9, adult; E10.628 Type 1 diabetes mellitus with other skin complications; E66.01 Morbid (severe) obesity due to excess calories; N18.6 End stage renal disease; I50.9 Heart failure, unspecified; Z99.2 Dependence on renal dialysis; I25.10 Atherosclerotic heart disease of native coronary artery without angina pectoris; L03.031 Cellulitis of right toe; E10.65 Type 1 diabetes mellitus with hyperglycemia; E10.51 Type 1 diabetes mellitus with diabetic peripheral angiopathy without gangrene; D63.1 Anemia in chronic kidney disease; J44.9 Chronic obstructive pulmonary disease, unspecified; E78.1 Pure hyperglyceridemia; E78.00 Pure hypercholesterolemia, unspecified; G47.33 Obstructive sleep apnea (adult) (pediatric); M89.9 Disorder of bone, unspecified; Z79.4 Long term (current) use of insulin; I25.2 Old myocardial infarction; Z95.1 Presence of aortocoronary bypass graft; Z88.5 Allergy status to narcotic agent

== ENCOUNTER 2017-12-28 08:35 | Day surgery (SDC) | payer MEDICARE, MEDICAID ==
[2017-12-27 12:59] VITALS: BMI 37.5
[2017-12-28 09:37] LABS: ALB/GLOB RATIO 1.2 (1.1-1.8); ALBUMIN 4.1 g/dL (3.0-4.8)
[2017-12-28] MEDS ORDERED: Bupivacaine 0.5% Inj(30mL) ONE (09:49)
[2017-12-28] MEDS ORDERED: Absorbable Gelatin Sponge Size 100 ONE (09:49)
[2017-12-28] MEDS ORDERED: Lidocaine 1% Inj (20ml) ONE (09:49)
[2017-12-28] MEDS ORDERED: Thrombin Topical 20,000 Intl Units Spray Kit TOP ONE ×2 (09:50→13:27)
[2017-12-28] MEDS ORDERED: Propofol 10 mg/ml Inj (20 ML) ONE ×2 (10:24→13:05)
[2017-12-28] MEDS ORDERED: Midazolam 2 MG/2 ML VIAL ONE (10:24)
[2017-12-28] MEDS ORDERED: Vancomycin 1 g Inj ONE (10:29)
[2017-12-28] MEDS ORDERED: Rocuronium 10 mg/ml (5 ml) ONE ×2 (10:46→11:52)
[2017-12-28] MEDS ORDERED: Neostigmine Methylsulfate 3mg/3ml Syringe IV ONE (11:08)
[2017-12-28] MEDS ORDERED: Glycopyrrolate 0.2 mg/ml (2ml vial) ONE (11:09)
[2017-12-28] MEDS ORDERED: ePHEDrine 50 mg/ml Inj ONE (12:45)
[2017-12-28] MEDS ORDERED: Sodium Chloride 0.9% 1,000 ML IV SCH (13:00)
--- NOTE | 2017-12-28 13:45 | PCM.SURG1 ---
Surgeon's Initial Post Op Note - Surgeon's Notes Surgeon: Dr. Coffey School Administrator: Dr. Melendez PGY-3 Type of Anesthesia: General Endo Anesthesia Administered By: Dr. Leavitt Pre-Operative Diagnosis: End Stage Renal Disease Operative Findings: See operative report Post-Operative Diagnosis: Same Operation Performed: Left arm antecubital AVF creation with loop gortex graft Specimen/Specimens Removed: none Estimated Blood Loss: EBL {In ML}: 25 Blood Products Given: N/A Drains Used: No Drains Post-Op Condition: Good Date of Surgery/Procedure: 12/28/17 Time of Surgery/Procedure: 13:45
[2017-12-28] MEDS ORDERED: Insulin Regular 100 units/ml ONE (14:14)
[2017-12-28 15:17] VITALS: RESP 18; TEMP 98.5
[2017-12-28 15:52] VITALS: O2SAT 95
[2017-12-28] MEDS ORDERED: Insulin Reg-MEDIUM-Coverage SC SCH (16:30)
[2017-12-28 17:19] VITALS: BP 154/70; PULSE 88
--- NOTE | 2017-12-28 22:10 | OP ---
PROCEDURE DATE: 12/28/2017 PREOPERATIVE DIAGNOSIS: End-stage renal disease. POSTOPERATIVE DIAGNOSIS: End-stage renal disease. PROCEDURE: Left forearm arteriovenous loop graft with 7-4 tapered GORE-ISRAEL. SURGEON: Radha Coffey MD. ASSISTANT FAMILY TEACHER: Dr. Kendy Melendez. ANESTHESIA: General. DESCRIPTION OF PROCEDURE: The patient was brought to the OR and placed supine on the OR table. After adequate general anesthesia had been accomplished, the entire left arm and forearm were prepped with ChloraPrep and draped out as a sterile field. An antecubital incision was made 1 fingerbreadth below the antecubital crease. The incision was extended down to the subcutaneous tissue. The antecubital vein and its branches, the cephalic and basilic veins were dissected out and looped out using vessel loop. Next, the fascia was incised and the brachial artery and its branches, the interosseous, radial, and ulnar branches were identified and looped out using vessel loop. After that, a counter incision was made further down to forearm and the tapered GORE-ISRAEL graft was tunneled in a loop fashion with the large end for the venous anastomosis and the 4 mm end for the arterial anastomosis. After proximal and distal occlusion of the vein, a longitudinal venotomy was made. The graft was trimmed and anastomosed to the vein in an end-to-side fashion using 6-0 Prolene continuous suture. Upon completion of the anastomosis, the graft was irrigated with heparinized saline and we cross-clamped. The tapered end, the small end of the graft was then trimmed and anastomosed to the interosseous branch of the brachial artery in an end-to-side fashion using 6-0 Prolene continuous suture. Upon completion of the anastomosis, all occlusive clamp was removed, no bruit was noted. So, we opened up the graft and dilated both the arterial and venous anastomoses. The graftotomy was sutured with 6-0 Prolene. After that, there is a palpable pulse and an audible bruit on the graft. The wound was closed in 2 layers using 2-0 Monocryl interrupted suture for the subcutaneous tissue and 4-0 Monocryl subcuticular suture for skin. The incision was infiltrated with Marcaine, sterile dressing was applied. Prior to leaving the operating room, the patient was noted to have warm hand and Doppler signal in both the radial and ulnar artery. Radha Coffey MD [facility] # [id number]
== END 2017-12-28 17:00 | disposition home or self-care (01) ==
LOC: SDS 08:35
PROVIDERS: ATTEND Surgery Vascular Surgery
DX: I13.2 Hypertensive heart and chronic kidney disease with heart failure and with stage 5 chronic kidney disease, or end stage renal disease (principal); E11.22 Type 2 diabetes mellitus with diabetic chronic kidney disease; N18.6 End stage renal disease; I50.9 Heart failure, unspecified
CPT/HCPCS: 36415; 36830; 80053; 82948; 84702; J1100; J1644; J2001; J2250; J2704; J2710; J2765; J3010; J7040

== ENCOUNTER 2018-01-14 09:21 | Inpatient (IN) | payer MEDICARE, MEDICAID ==
--- NOTE | 2018-01-14 09:34 | ED PDOC ---
Arrival/HPI - General Time Seen by Provider: 01/14/18 09:24 Historian: Patient - History of Present Illness Narrative History of Present Illness (Text): 01/14/18 09:30 47 y/o female, pmh including htn/hyperlipidemia/dm/ESRD (on dialysis every M/W/ F (didn't had her dialysis yet)/NSTEMI/CHF/CAD, post menopausal, not allergic to morphine or narcotics, c/o lower abdominal pain with nausea/vomiting started this morning which causing her to have shortness of breath when vomiting. Pt. stated that she is suppose to be at the dialysis this morning, woke up with lower abdominal pain with nausea and vomiting, feels like the vomiting is causing her to have shortness of breath, no palpitation, no numbness or tingling , no change in vision, no rash, no other medical or psychological complaints. Past Medical History - Provider Review Nursing Documentation Reviewed: Yes - Infectious Disease Hx of Infectious Diseases: None - Tetanus Immunization Tetanus Immunization: Unknown - Cardiac Hx Pacemaker: No - Pulmonary Hx Asthma: Yes - Neurological Hx Paralysis: No - HEENT Hx HEENT Disorder: Yes (eyeglasses) - Renal Hx Renal Disorder: Yes Other/Comment: Renal insufficiency -2 years. is her vision rehabilitation therapist. - Endocrine/Metabolic Hx Diabetes Mellitus Type 1: Yes - Hematological/Oncological Hx Blood Transfusions: Yes Hx Blood Transfusion Reaction: No - Integumentary Hx Dermatological Disorder: No - Musculoskeletal/Rheumatological Hx Musculoskeletal Disorders: No - Gastrointestinal Hx Gastrointestinal Disorders: No - Genitourinary/Gynecological Hx Genitourinary Disorders: No - Psychiatric Hx Emotional Abuse: No Hx Physical Abuse: No Hx Substance Use: No - Surgical History Hx Coronary Artery Bypass Graft: Yes - Anesthesia Hx Anesthesia Reactions: Yes (VOMITING) Hx Malignant Hyperthermia: No - Suicidal Assessment Feels Threatened In Home Enviroment: No Family/Social History - Physician Review Nursing Documentation Reviewed: Yes Family/Social History: Unknown Family HX Smoking Status: Never Smoked Hx Alcohol Use: No Hx Substance Use: No Allergies/Home Meds Allergies/Adverse Reactions: Allergies anesthesia Adverse Reaction (Uncoded 11/06/17 05:50) VOMITING Home Medications: Home Meds Medication Instructions Recorded Confirmed Fenofibrate [Tricor] 54 mg PO QAM 01/28/17 01/14/18 Insulin Detemir [Levemir] 0 unit SC ACHS 01/28/17 12/28/17 Levocetirizine Dihydrochloride 5 mg PO DAILY 01/28/17 01/14/18 Lisinopril [Zestril] 20 mg PO QAM 01/28/17 01/14/18 Metoprolol Tartrate [Lopressor] 50 mg PO BID 01/28/17 01/14/18 Sevelamer [Renagel] 800 mg PO WM 01/28/17 01/14/18 Simvastatin [Zocor] 40 mg PO HS 01/28/17 01/14/18 cloNIDine [Catapres] 0.2 mg PO BID 01/28/17 01/14/18 Pregabalin [Lyrica] 50 mg PO BID 08/26/17 01/14/18 Ascorbic Acid [Vitamin C] 500 mg PO DAILY 12/27/17 01/14/18 Clopidogrel [Plavix] 75 mg PO QAM 12/27/17 01/14/18 Insulin Lispro [Humalog (Insulin 0 unit SQ ACTID 12/27/17 01/14/18 Lispro)] Metoclopramide [Reglan] 10 mg PO TID 12/27/17 01/14/18 Torsemide [Demadex] 100 mg PO QAM 12/27/17 01/14/18 hydrALAZINE [hydralazine 50 mg PO BID 12/27/17 01/14/18 Hydrochloride] Review of Systems - Review of Systems Constitutional: absent: Fatigue, Fevers Eyes: absent: Vision Changes ENT: absent: Hearing Changes Respiratory: SOB. absent: Cough, Sputum, Wheezing Cardiovascular: absent: Chest Pain Gastrointestinal: Abdominal Pain, Nausea, Vomiting. absent: Diarrhea Skin: absent: Rash, Pruritis Neurological: absent: Headache, Dizziness Psychiatric: absent: Anxiety, Depression, Suicidal Ideation Physical Exam Vital Signs Reviewed: Yes Vital Signs Temp Pulse Resp BP Pulse Ox 01/14/18 13:15 97.9 F 98 H 24 155/90 H 100 01/14/18 11:57 148/86 01/14/18 09:22 98 F 86 20 159/85 H 98 Temperature: Afebrile Blood Pressure: Hypertensive Pulse: Regular Respiratory Rate: Normal Appearance: Positive for: Well-Appearing, Non-Toxic Pain Distress: Moderate Mental Status: Positive for: Alert and Oriented X 3 - Systems Exam Head: Present: Atraumatic, Normocephalic Pupils: Present: PERRL Extroacular Muscles: Present: EOMI Conjunctiva: Present: Normal Mouth: Present: Moist Mucous Membranes Neck: Present: Normal Range of Motion Respiratory/Chest: Present: Clear to Auscultation, Good Air Exchange, Rhonchi. No: Respiratory Distress, Accessory Muscle Use, Wheezes, Decreased Breath Sounds , Rales, Retracting, Tachypneic, Tender to Palpation Cardiovascular: Present: Regular Rate and Rhythm, Normal S1, S2, Other (1+ pedal edema noted bilaterally). No: Murmurs Abdomen: No: Tenderness, Distention, Peritoneal Signs, Rebound, Guarding Rectal: Present: Normal Rectal Tone, Other (Female Board Certified Music Therapist: CEDRICK Lane. ). No: Occult Blood, Rectal Tenderness, Gross Blood, Melena, Hemorrhoids, Fissures, Nodule/Mass/Lesions Back: Present: Normal Inspection Upper Extremity: Present: Normal Inspection. No: Cyanosis, Edema Lower Extremity: Present: Normal Inspection, NORMAL PULSES, Normal ROM, Capillary Refill < 2 s. No: Edema, Cirilo's Sign, Deformity Neurological: Present: GCS=15, CN II-XII Intact, Speech Normal, Motor Func Grossly Intact, Gait Normal, Memory Normal Skin: Present: Warm, Dry, Normal Color. No: Rashes Psychiatric: Present: Alert, Oriented x 3, Normal Insight, Normal Concentration Medical Decision Making ED Course and Treatment: 01/14/18 09:44 -labs/lipase/ua/bnp -CT abdomen and pelvis w/o contrast -CXR -Bilateral lower extremity venuous doppler -IV pepcid/reglan/morphine -Observe and reassess 01/14/18 11:46 -EKG: NSR @ 86 BPM, no ST elevation or depression, T wave inversion on the lead I and aVL, no acute ST or T wave changes compared with previous ekg. -Chest xray Mild cardiomegaly and mild vascular congestion with no definite infiltrate or consolidation. -CT abdomen and pelvis: No significant or acute findings to account for/ related to the clinical presentation. Additional benign and/or incidental findings described above. No significant interval change compared to the prior examination(s). -Bilateral lower extremities venuous doppler: as per preliminary report, no acute DVT -Labs show no acute findings except Hgb 9.0 from 11.8 (guaiac is negative), BUN 55 from 41, Creatine 5.9 from 5.1, Glucose 456 (insulin 10 units ordered), Troponin 0.04 which is around her baseline, B[place] 8[address]21 [place] [id number] (Lasix 40mg IV ordered) -UA ordered and pending result. -Pt. is high risk for CAD and NSTEMI, will need admission to rule out ACS, aspirin with morphine/oxygen ordered. -I discussed the case with Dr. Sultana, vision rehabilitation therapist, here at the ER and evaluating the patient, agreed on the admission and the patient can get dialysis today, consult placed in for him. -Pt.'s hydro plant site manager is Dr. Austin Markham, routine consult placed in as well. -IV rocephine and azithromycin ordered for the CT show there is subsegmental infiltrate?, blood culture ordered as well. 01/14/18 11:49 -I spoke to the medicine oncall DR. Early, recommend to admit under the hospitalist service. 01/14/18 12:17 -I spoke to the medicine hospitalist, DR. Liao, discussed about the case/labs/ consult and agreed to admit the patient. -I discussed the case with Dr. Mcgrath including labs/radiology result/consult and treatment, he agreed on the admission and will placed in the admission order. 01/14/18 12:58 -I spoke to Dr. Lira, as hospitalist request, discussed about the case/labs/ radiology results, he will accept the patient and paged his resident, pending call back. -Paging Dr. Markham, hydro plant site manager, pending call back. 01/14/18 13:18 -Pt. request more pain med, morphine 2mg IV ordered. 01/14/18 13:29 -I spoke to Dr. Markham about the case/labs and ekg, suggest no acute intervention indicated at this time as the clinical impression is fluid overload from renal source, he will consult on the case but no emergent intervention or additional medication needed. -residential real estate assistant for Dr. Lira is on the clinic schedule today, would not come to admit, paging Dr. Lira for the update. 01/14/18 14:58 -I spoke to Dr. Lira, he is awared of the hydro plant site manager Dr. Markham recommendation and still suggest to page the resident after the clinic hour for admission. - Lab Interpretations Lab Results: 01/14/18 09:55 01/14/18 09:55 Lab Results 01/14/18 09:55: WBC 5.4, RBC 2.75 L, Hgb 9.0 L D, Hct 25.8 L, MCV 93.8, MCH 32.7 , MCHC 34.9, RDW 13.3, Plt Count 189, MPV 9.5, Gran % 87.3 H, Lymph % (Auto) 4.4 L, Lane % (Auto) 6.3 H, Eos % (Auto) 1.8, Baso % (Auto) 0.2, Gran # 4.72, Lymph # (Auto) 0.2 L, Lane # (Auto) 0.3, Eos # (Auto) 0.1, Baso # (Auto) 0.01, Neutrophils % (Manual) 90 H, Lymphocytes % (Manual) 3 L, Monocytes % (Manual) 5 , Eosinophils % (Manual) 2, Platelet Evaluation Normal 01/14/18 09:55: Sodium 138, Potassium 4.6, Chloride 98, Carbon Dioxide 23, Anion Gap 21 H, BUN 55 H, Creatinine 5.9 H, Est GFR ( Amer) 9, Est GFR ( Non-Af Amer) 8, Random Glucose 456 H*, Calcium 9.0, Magnesium 2.0, Total Bilirubin 0.5, AST 17, ALT 21, Alkaline Phosphatase 72, Lactate Dehydrogenase 576, Total Creatine Kinase 142, Troponin I 0.04 D, NT-Pro-B Natriuret Pep 10538 H, Total Protein 7.1, Albumin 4.0, Globulin 3.1, Albumin/Globulin Ratio 1.3, Lipase 201 - RAD Interpretation Radiology Orders: 01/14/18 09:40 ABDOMEN & PELVIS [ABD & PELVIS W/O PO OR IV CONT] [CT] Stat 01/14/18 09:41 CHEST PORTABLE [RAD] Stat DUPLEX LOWER EXTRM VEIN BILAT [US] Stat Bilateral Lower extremities venuou doppler: Chest xray: HISTORY: medical clearance COMPARISON: 08/26/2017 FINDINGS: LUNGS: No active pulmonary disease. PLEURA: No significant pleural effusion identified, no pneumothorax apparent. CARDIOVASCULAR: Mild cardiomegaly and mild vascular congestion OSSEOUS STRUCTURES: Sternal wires VISUALIZED UPPER ABDOMEN: Normal. OTHER FINDINGS: Dialysis catheter IMPRESSION: Mild cardiomegaly and mild vascular congestion CT abdomen and pelvis: Account Services Associate: Radiologist - EKG Interpretation EKG Interpretation (Text): 01/14/18 09:54 -EKG: NSR @ 86 BPM, no ST elevation or depression, T wave inversion on the lead I and aVL, no acute ST or T wave changes compared with previous ekg. Interpreted by ED Physician: Yes Type: 12 lead EKG Comparison: Com.w/previous EKG - Medication Orders Current Medication Orders: Metolazone (Zaroxolyn) 10 mg PO BID SELWYN Torsemide (Demadex) 100 mg PO BID SELWYN Discontinued Medications Albuterol/Ipratropium (Duoneb 3 Mg/0.5 Mg (3 Ml) Ud) 3 ml IH STAT STA Stop: 01/14/18 10:48 Last Admin: 01/14/18 11:58 Dose: 3 ml Aspirin (Aspirin) 325 mg PO STAT STA Stop: 01/14/18 11:28 Last Admin: 01/14/18 11:58 Dose: 325 mg Famotidine (Pepcid) 20 mg IVP STAT STA Stop: 01/14/18 09:38 Last Admin: 01/14/18 10:04 Dose: 20 mg IVP Administration Document 01/14/18 10:04 SRE (Rec: 01/14/18 10:04 SRE [id number]) Charges for Administration # of IVP Administrations 1 Furosemide (Lasix) 40 mg IVP STAT STA Stop: 01/14/18 10:40 Last Admin: 01/14/18 11:57 Dose: 40 mg MAR Blood Pressure Document 01/14/18 11:57 SRE (Rec: 01/14/18 11:58 SRE [id number]) Blood Pressure Blood Pressure (100/60-150/90) 148/86 IVP Administration Document 01/14/18 11:57 SRE (Rec: 01/14/18 11:58 SRE [id number]) Charges for Administration # of IVP Administrations 1 Ceftriaxone Sodium (Rocephin 1 Gram Ivpb) 1 gm in 100 mls @ 200 mls/hr IVPB STAT STA PRN Reason: Protocol Stop: 01/14/18 12:19 Last Admin: 01/14/18 12:27 Dose: 200 mls/hr eMAR Start Stop Document 01/14/18 12:27 SRE (Rec: 01/14/18 12:29 SRE [id number]) Intravenous Solution Start Date 01/14/18 Start Time 12:29 End Date 01/14/18 End time 13:25 Total Infusion Time 56 Azithromycin (Zithromax 500mg In Ns) 500 mg in 250 mls @ 167 mls/hr IVPB STAT STA PRN Reason: Protocol Stop: 01/14/18 13:19 Last Admin: 01/14/18 14:14 Dose: 167 mls/hr eMAR Start Stop Document 01/14/18 14:14 SRE (Rec: 01/14/18 14:15 SRE [id number]) Intravenous Solution Start Date 01/14/18 Start Time 13:00 End Date 01/14/18 End time 14:30 Total Infusion Time 90 Insulin Human Regular (Humulin R) 10 units IV STAT STA Stop: 01/14/18 10:40 Last Admin: 01/14/18 12:01 Dose: 10 units eMAR Start Stop Document 01/14/18 12:01 SRE (Rec: 01/14/18 12:03 SRE [id number]) Intravenous Solution Start Date 01/14/18 Start Time 12:03 End Date 01/14/18 End time 12:04 Total Infusion Time 1 MAR Blood Glucose Document 01/14/18 12:01 SRE (Rec: 01/14/18 12:03 SRE [id number]) Blood Glucose Finger Stick Blood Glucose (70-120) 456 Morphine Sulfate (Morphine) 5 mg IVP STAT STA Stop: 01/14/18 09:40 Morphine Sulfate (Morphine) 2 mg IVP STAT STA Stop: 01/14/18 13:18 Morphine Sulfate (Morphine) 2 mg IVP STAT STA Stop: 01/14/18 13:20 Last Admin: 01/14/18 14:05 Dose: 2 mg IVP Administration Document 01/14/18 14:05 SRE (Rec: 01/14/18 14:05 SRE [id number]) Charges for Administration # of IVP Administrations 1 Ondansetron HCl (Zofran Inj) 4 mg IVP STAT STA Stop: 01/14/18 09:38 Last Admin: 01/14/18 10:03 Dose: 4 mg IVP Administration Document 01/14/18 10:03 SRE (Rec: 01/14/18 10:03 SRE [id number]) Charges for Administration # of IVP Administrations 1 - PA / INTERVENTIONAL PHYSICIAN / Resident Statement MD/DO has reviewed & agrees with the documentation as recorded. Disposition/Present on Arrival - Present on Arrival Any Indicators Present on Arrival: No History of DVT/PE: No History of Uncontrolled Diabetes: No Urinary Catheter: No History of Decub. Ulcer: No History Surgical Site Infection Following: None - Disposition Have Diagnosis and Disposition been Completed?: Yes Diagnosis: Congestive heart failure, ESRD (end stage renal disease) on dialysis, Diabetes , Chronic anemia, Pneumonia Disposition: HOSPITALIZED Disposition Time: 10:46 Patient Plan: Admission, Telemetry Patient Problems: Current Active Problems Problem Status Onset Congestive heart failure Chronic Diabetes Chronic Chronic anemia Chronic ESRD (end stage renal disease) on dialysis Chronic Pneumonia Acute Condition: STABLE
[2018-01-14] MEDS ORDERED: Morphine 5 MG/ML SYRINGE IVP STA (09:39)
[2018-01-14 09:58] LABS: BASO # 0.01 K/mm3 (0.0-2.0); BASO % 0.2 % (0.0-3.0); EOS # 0.1 (0.0-0.7); EOS % 1.8 % (1.5-5.0); GRAN # 4.72 (1.4-6.5); GRAN % 87.3 % (50.0-68.0); LYMPH # 0.2 (1.2-3.4); LYMPH % 4.4 % (22.0-35.0); MEAN CELL VOLUME 93.8 fl (80.0-105.0); MEAN CORPUSCULAR HEMOGLOBIN 32.7 pg (25.0-35.0); MEAN CORPUSCULAR HGB CONC 34.9 g/dl (31.0-37.0); MEAN PLATELET VOLUME 9.5 fl (7.0-11.0); MONO # 0.3 (0.1-0.6); MONO % 6.3 % (1.0-6.0); PLATELET COUNT 189 10^3/uL (120.0-450.0); RBC 2.75 10^6/uL (3.5-6.1); RED CELL DISTRIBUTION WIDTH 13.3 % (11.5-14.5); WHITE BLOOD COUNT 5.4 10^3/ul (4.5-11.0)
[2018-01-14 10:16] LABS: ALB/GLOB RATIO 1.3 (1.1-1.8)
[2018-01-14 10:25] LABS: TROPONIN I 0.04 ng/mL
[2018-01-14 10:26] LABS: EOSINOPHIL 2 % (0.0-3.0); LYMPHOCYTE 3 % (22.0-35.0); MONOCYTE 5 % (1.0-6.0); NEUTROPHIL 90 % (50.0-70.0); PLATELET ESTIMATE NORMAL (NORMAL)
[2018-01-14] MEDS ORDERED: Insulin Regular 1 UNITS/0.01 ML ML IV STA (10:39)
[2018-01-14] MEDS ORDERED: Albuterol-Ipratrop 3 mg / 0.5 (3 ml) UD IH STA (10:47)
--- NOTE | 2018-01-14 11:13 | RAD ---
HISTORY: medical clearance COMPARISON: 08/26/2017 FINDINGS: LUNGS: No active pulmonary disease. PLEURA: No significant pleural effusion identified, no pneumothorax apparent. CARDIOVASCULAR: Mild cardiomegaly and mild vascular congestion OSSEOUS STRUCTURES: Sternal wires VISUALIZED UPPER ABDOMEN: Normal. OTHER FINDINGS: Dialysis catheter IMPRESSION: Mild cardiomegaly and mild vascular congestion
--- NOTE | 2018-01-14 11:36 | CT ---
PROCEDURE: CT Abdomen and Pelvis without intravenous contrast HISTORY: lower abdominal pain COMPARISON: 11/07/2016 TECHNIQUE: Unenhanced study. Neither oral nor intravenous contrast administered. Sensitivity and specificity for acute inflammatory processes limited by the absence of oral and intravenous contrast. Radiation dose: Total exam DLP = 1572.12 mGy-cm. This CT exam was performed using one or more of the following dose reduction techniques: Automated exposure control, adjustment of the mA and/or kV according to patient size, and/or use of iterative reconstruction technique. FINDINGS: LOWER THORAX: Subsegmental infiltrate/atelectasis right lower lobe, right middle lobe. LIVER: Unremarkable. No gross lesion or ductal dilatation. GALLBLADDER AND BILE DUCTS: Unremarkable. PANCREAS: Unremarkable. No gross lesion or ductal dilatation. SPLEEN: Splenomegaly. Orthogonal measurements 8.8 x 13.4 cm. ADRENALS: Unremarkable. No mass. KIDNEYS AND URETERS: Unremarkable. No hydronephrosis. No solid mass. VASCULATURE: Visceral branch calcifications again identified. No aortic aneurysm. BOWEL: Unremarkable. No obstruction. No gross mural thickening. APPENDIX: Unremarkable. Normal appendix. PERITONEUM: Unremarkable. No free fluid. No free air. LYMPH NODES: Unremarkable. No enlarged lymph nodes. BLADDER: Unremarkable. REPRODUCTIVE: Unremarkable. BONES: No acute fracture. OTHER FINDINGS: None. IMPRESSION: No significant or acute findings to account for/ related to the clinical presentation. Additional benign and/or incidental findings described above. No significant interval change compared to the prior examination(s).
[2018-01-14] MEDS ORDERED: Azithromycin 500MG/NS 250ml 500 MG/250 ML BAG IVPB STA (11:50)
[2018-01-14] MEDS ORDERED: cefTRIAXone 1 gm 1 GM/100 ML BAG IVPB STA (11:50)
[2018-01-14 13:03] LABS: PH,URINE 7.5 (4.7-8.0); URINE APPEARANCE CLEAR (CLEAR); URINE BILIRUBIN NEGATIVE (NEGATIVE); URINE BLOOD SMALL (NEGATIVE); URINE COLOR YELLOW (YELLOW); URINE GLUCOSE (UA) >=1000 mg/dL (NEGATIVE); URINE LEUKOCYTE ESTERASE NEGATIVE Leu/uL (NEGATIVE); URINE PROTEIN >=300 mg/dL (<30 mg/dL); URINE UROBILINOGEN 0.2 E.U./dL (<1 E.U./dL)
[2018-01-14 13:17] LABS: URINE BACTERIA SMALL (NEG); URINE RBC 0 - 2 /hpf (0-2); URINE WBC 0 - 2 /hpf (0-6)
[2018-01-14] MEDS ORDERED: Morphine 2 mg/ml ISec IVP STA (13:17)
[2018-01-14] MEDS ORDERED: Morphine 2 mg/2 mL syringe IVP STA (13:19)
[2018-01-14] MEDS ORDERED: Darbepoetin Alfa 25 mcg/ml Inj IVP ONE (15:30)
[2018-01-14] MEDS ORDERED: Insulin Detemir 100 units/ml Vial (Levemir) SC SCH (16:30)
[2018-01-14] MEDS: Insulin Lispro (humaLOG) MEDIUM Coverage SC SCH (17:20)
[2018-01-14] MEDS: Pantoprazole 40 mg EC Tab PO SCH (17:20)
[2018-01-14] MEDS: Levalbuterol 0.63 MG/3 ML Inhal Soln UD IH SCH ×2 (17:20→21:00)
[2018-01-14] MEDS ORDERED: Albuterol-Ipratrop 3 mg / 0.5 (3 ml) UD IH PRN (18:16)
--- NOTE | 2018-01-14 18:17 | CP.PCM.HP ---
<Fanta Christensen - Last Filed: 01/14/18 21:29> History of Present Illness - History of Present Illness History of Present Illness: CC: Abdominal pain Patient is a 47 y/o with PMHx of morbidly obese BMI 48, htn, hld, COPD on 2 litters nasal cannula, IDDM, ESRD ( HD M, W,F), CAD s/p CABG and stents, systolic CHF presenting with lower quadrant abdominal pain for 1 day. Patient states this morning when she woke up she felt nauseous, vomiting x2, clear liquid, non bullous, non-bloody. The abdominal pain was non- radiating to the back. Denies dysuria. States the SOB got worst when she was vomiting. Currently getting her HD, states sob has improved, denies chest pain. Denies missing HD sessions. Denies diarrhea. States she hasn't had po intake since last night. Denies sick contact, no recent travels. Denies new food, denies eating raw meat or fish. No fever or chills. Denies cough. C/o headache for few days, the headache is not the worst headache of her life. Patient states at baseline she gets SOB when she ambulates 4 steps. Records reviewed, last had stress test in October 2017 which was abnormal, but revealed improvement of previous ischemia. Last echo 07/02 with LVEF of 45%. PMHX: h/o left 9th rib fracture, IDDM, HLD, HTN, CAD s/p CABG and stents, COPD on 2 litter NS, AKBAR, depression, chronic renal insufficiency, chronic foot ulcer , morbidly obese, ESRD on HD. PSHx: CABG (3 vessels- 2013), debridement of left foot ulcer, Right sided HD cath insertion, Left antecubital fossa with AV-fistula. FHx: Mother and father with DM. Social: Denies tobacco, ETOH or drug use. Born in [place]. Lives with her childrens, mostly sedentary, ambulates unassisted at times. Unemployed. Allergy: anesthesia Home meds: as per chart Pharmacy: [facility] [place] pharmacy PMD: Dr Correa Present on Admission - Present on Admission Any Indicators Present on Admission: Yes History of DVT/PE: No History of Uncontrolled Diabetes: Yes Urinary Catheter: No Decubitus Ulcer Present: No Review of Systems - Review of Systems All systems: reviewed and no additional remarkable complaints except Review of Systems: As per HPI. 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 - ENDOCRINE/METABOLIC Hx Diabetes Mellitus Type 1: Yes - HEMATOLOGICAL/ONCOLOGICAL Hx Blood Transfusions: Yes Hx Blood Transfusion Reaction: No - INTEGUMENTARY Hx Dermatological Problems: No - MUSCULOSKELETAL/RHEUMATOLOGICAL Hx Musculoskeletal Disorders: No - GASTROINTESTINAL Hx Gastrointestinal Disorders: No - GENITOURINARY/GYNECOLOGICAL Hx Genitourinary Disorders: No - PSYCHIATRIC Hx Emotional Abuse: No Hx Physical Abuse: No Hx Substance Use: No - SURGICAL HISTORY Hx Coronary Artery Bypass Graft: Yes - ANESTHESIA Hx Anesthesia Reactions: Yes (VOMITING) Hx Malignant Hyperthermia: No Meds Allergies/Adverse Reactions: Allergies Allergy/AdvReac Type Severity Reaction Status Date / Time anesthesia AdvReac VOMITING Uncoded 11/06/17 05:50 Physical Exam - Constitutional Appears: No Acute Distress, Older Than Stated Age, Chronically Ill, Other ( Morbidly obese.) - Head Exam Head Exam: ATRAUMATIC, NORMOCEPHALIC - Eye Exam Eye Exam: EOMI, Normal appearance. absent: Scleral icterus Pupil Exam: NORMAL ACCOMODATION - ENT Exam ENT Exam: Mucous Membranes Moist - Neck Exam Neck exam: Positive for: Normal Inspection - Respiratory Exam Respiratory Exam: Decreased Breath Sounds (at the bases), NORMAL BREATHING PATTERN. absent: Accessory Muscle Use, Chest Wall Tenderness, Prolonged Expiratory Phase, Rales, Rhonchi, Wheezes, Respiratory Distress, Stridor - Cardiovascular Exam Cardiovascular Exam: REGULAR RHYTHM, +S1, +S2. absent: Bradycardia, Tachycardia , Diastolic murmur, Gallop, JVD, RRR, Rubs, Systolic Murmur - GI/Abdominal Exam GI & Abdominal Exam: Normal Bowel Sounds, Soft. absent: Diminished Bowel Sounds , Distended, Firm, Guarding, Pulsatile Mass, Rebound, Rigid, Tenderness Additional comments: + Obese abdomen. - Extremities Exam Extremities exam: Positive for: pedal edema (+ 2), pedal pulses present. Negative for: normal capillary refill, tenderness - Back Exam Back exam: NORMAL INSPECTION - Neurological Exam Neurological exam: Alert, Oriented x3 - Psychiatric Exam Psychiatric exam: Normal Affect, Normal Mood - Skin Skin Exam: Dry, Normal Color, Warm Additional comments: + old healed wound on the right foot. No signs of acute infection. Right upper chest with HD port with clean dressing, no surrouding erythema noted left antecubital fossa with AV fistula, with good thrill and bruit. Results - Vital Signs Recent Vital Signs: Last Vital Signs Temp 98.2 F 01/14/18 17:55 Pulse 98 H 01/14/18 13:15 Resp 24 01/14/18 13:15 BP 155/90 H 01/14/18 13:15 Pulse Ox 100 01/14/18 13:15 - Labs Result Diagrams: 01/14/18 09:55 01/14/18 09:55 Labs: Laboratory Results - last 24 hr 01/14/18 01/14/18 12:50 16:50 Troponin I 0.04 Urine Color Yellow Urine Appearance Clear Urine pH 7.5 Ur Specific [place] 1.020 Urine Protein >=300 H Urine Glucose (UA) >=1000 Urine Ketones Negative Urine Blood Small H Urine Nitrate Negative Urine Bilirubin Negative Urine Urobilinogen 0.2 Ur Leukocyte Esterase Negative Urine RBC 0 - 2 Urine WBC 0 - 2 Ur Epithelial Cells 4 - 5 Urine Bacteria Small Assessment & Plan - Assessment and Plan (Free Text) Assessment: Patient is a 47 y/o with PMHx of morbidly obese BMI 48, htn, hld, COPD on 2 litters nasal cannula, IDDM, ESRD ( HD M, W,F), CAD s/p CABG and stents, systolic CHF presenting with lower quadrant abdominal pain for 1 day, along with nausea and vomiting. Plan: 1) Intractable pain along with nausea and vomiting likely gastritis, versus atypical presentation of ACS versus hyperosmolar hyperglycemic state, no signs of sepsis noted. - CT abdomen and pelvis with possible pneumonia - No acute findings on CT - Less likely AAA ( abdomen soft, non tender, no guarding, no thrills) - Patient had gap of 17 and glucose of 456 on admission, s/p stat dose of 10 units insulin - sepsis work up sent - Ua with no ketones - diabetes control as stated below - reglan and zofran prn for nausea/vomiting) 2) Worsening dyspnea due to CHF exacerbation, r/o pna. - Patient also has underlying copd, on home oxygen - will resume home oxygen - + elevated pro bnp, troponin at baseline, will trend - No acute ischemic changes on EKG - Chest x-ray with vascular congestion and cardiomegaly - CT chest with lower lobe infiltration and atelectasis. - will get procal to r/o pna - Urine legionella ordered. - s/p iv 40 mg of lasix in the ed - on torsemide and metolazone as per nephro - patient is currently getting dialyzed - Echo ordered - Cardiology consulted - ID consulted for possible pna, on cefepime and doxy 3) Acute on chronic anemia - anemia work up sent - type and cross match 1 units for tomorrow - No signs of active bleeding noted - On aranesp 4) Uncontrolled DM - Will continue with long acting and basal insulin - on moderate dose iss - renal and carb controlled diet - hgb a1c ordered - Diabetic education 5) ESRD- getting HD today - nephro following - on renagel 6) h/o hld- on lipitor and tricor 7) h/o htn- on clonidine 8) CAD s/o CABG and stents- on plavix, asa, and lopressor. 9) Peripheral neuropathy- continue with lyrica 10) DVT and gi prophylaxis: protonix, heparin sc/VTE device. Patient seen, examined and case discussed with Dr Lira. - Date & Time Date: 01/14/18 Time: 17:20 <Moses Lira U - Last Filed: 01/15/18 14:12> Results - Vital Signs Recent Vital Signs: Last Vital Signs Temp 99 F 01/15/18 06:00 Pulse 79 01/15/18 06:00 Resp 20 01/15/18 06:00 BP 121/56 L 01/15/18 06:00 Pulse Ox 100 01/15/18 00:01 - Labs Result Diagrams: 01/15/18 09:00 01/15/18 09:00 Labs: Laboratory Results - last 24 hr 01/14/18 01/14/18 01/14/18 16:50 18:35 18:40 WBC RBC Hgb Hct MCV MCH MCHC RDW Plt Count MPV Gran % Lymph % (Auto) [place] % (Auto) Eos % (Auto) Baso % (Auto) Gran # Lymph # (Auto) [place] # (Auto) Eos # (Auto) Baso # (Auto) Retic Count Sodium Potassium Chloride Carbon Dioxide Anion Gap BUN Creatinine Est GFR ( Amer) Est GFR (Non-Af Amer) POC Glucose (mg/dL) Random Glucose Calcium Phosphorus Magnesium Iron TIBC % Saturation Total Bilirubin Direct Bilirubin AST ALT Alkaline Phosphatase Troponin I 0.04 Total Protein Albumin Globulin Albumin/Globulin Ratio Triglycerides Cholesterol LDL Cholesterol Direct HDL Cholesterol Free T4 Thyroxine (T4) TSH 3rd Generation Hepatitis A IgM Ab Negative Hep Bs Antigen Negative Hep B Core IgM Ab Negative Hepatitis C Antibody Negative HIV 1&2 Ag/Ab, 4th Gen Nonreactive Blood Type Antibody Screen Crossmatch BBK History Checked 01/14/18 01/15/18 01/15/18 21:58 07:34 09:00 WBC RBC Hgb Hct MCV MCH MCHC RDW Plt Count MPV Gran % Lymph % (Auto) [place] % (Auto) Eos % (Auto) Baso % (Auto) Gran # Lymph # (Auto) [place] # (Auto) Eos # (Auto) Baso # (Auto) Retic Count Sodium Potassium Chloride Carbon Dioxide Anion Gap BUN Creatinine Est GFR ( Amer) Est GFR (Non-Af Amer) POC Glucose (mg/dL) 324 H 332 H Random Glucose Calcium Phosphorus Magnesium Iron TIBC % Saturation Total Bilirubin Direct Bilirubin AST ALT Alkaline Phosphatase Troponin I 0.04 Total Protein Albumin Globulin Albumin/Globulin Ratio Triglycerides Cholesterol LDL Cholesterol Direct HDL Cholesterol Free T4 Thyroxine (T4) TSH 3rd Generation Hepatitis A IgM Ab Hep Bs Antigen Hep B Core IgM Ab Hepatitis C Antibody HIV 1&2 Ag/Ab, 4th Gen Blood Type Antibody Screen Crossmatch BBK History Checked 01/15/18 01/15/18 01/15/18 09:00 09:00 09:00 WBC 3.7 L D RBC 2.50 L Hgb 8.1 L Hct 23.9 L MCV 95.6 MCH 32.4 MCHC 33.9 RDW 13.4 Plt Count 172 MPV 9.6 Gran % 73.4 H Lymph % (Auto) 22.0 [place] % (Auto) 4.3 Eos % (Auto) 0.3 L Baso % (Auto) 0.0 Gran # 2.71 Lymph # (Auto) 0.8 L [place] # (Auto) 0.2 Eos # (Auto) 0.0 Baso # (Auto) 0.00 Retic Count 2.87 H Sodium 137 Potassium 3.5 L Chloride 93 L Carbon Dioxide 31 Anion Gap 17 BUN 33 H Creatinine 4.5 H Est GFR ( Amer) 13 Est GFR (Non-Af Amer) 10 POC Glucose (mg/dL) Random Glucose 329 H* D Calcium 8.8 Phosphorus 4.8 H Magnesium 1.8 Iron 46 TIBC 237 L % Saturation 19 L Total Bilirubin 0.5 Direct Bilirubin 0.3 AST 20 ALT 21 Alkaline Phosphatase 56 Troponin I Total Protein 6.9 Albumin 3.6 Globulin 3.3 Albumin/Globulin Ratio 1.1 Triglycerides 152 Cholesterol 171 LDL Cholesterol Direct 64 HDL Cholesterol 49 Free T4 Thyroxine (T4) TSH 3rd Generation Hepatitis A IgM Ab Hep Bs Antigen Hep B Core IgM Ab Hepatitis C Antibody HIV 1&2 Ag/Ab, 4th Gen Blood Type Antibody Screen Crossmatch BBK History Checked 01/15/18 01/15/18 09:00 09:00 WBC RBC Hgb Hct MCV MCH MCHC RDW Plt Count MPV Gran % Lymph % (Auto) [place] % (Auto) Eos % (Auto) Baso % (Auto) Gran # Lymph # (Auto) [place] # (Auto) Eos # (Auto) Baso # (Auto) Retic Count Sodium Potassium Chloride Carbon Dioxide Anion Gap BUN Creatinine Est GFR ( Amer) Est GFR (Non-Af Amer) POC Glucose (mg/dL) Random Glucose Calcium Phosphorus Magnesium Iron TIBC % Saturation Total Bilirubin Direct Bilirubin AST ALT Alkaline Phosphatase Troponin I Total Protein Albumin Globulin Albumin/Globulin Ratio Triglycerides Cholesterol LDL Cholesterol Direct HDL Cholesterol Free T4 1.45 Thyroxine (T4) 8.5 TSH 3rd Generation 0.29 L Hepatitis A IgM Ab Hep Bs Antigen Hep B Core IgM Ab Hepatitis C Antibody HIV 1&2 Ag/Ab, 4th Gen Blood Type B POSITIVE Antibody Screen Negative Crossmatch See Detail BBK History Checked Patient has bt Attending/Attestation - Attestation I have personally seen and examined this patient.: Yes I have fully participated in the care of the patient.: Yes I have reviewed all pertinent clinical information: Yes Notes (Text): Please see/read my dictated notes.
[2018-01-14] MEDS: metOLazone 5 MG TAB PO SCH (18:29)
--- NOTE | 2018-01-14 18:57 | CARD ---
APPROVED REPORT EKG Measurement Heart [id number] <Conclusion> Normal sinus rhythm with sinus arrhythmia Nonspecific intraventricular block T wave abnormality, consider lateral ischemia Abnormal ECG
[2018-01-14] MEDS ORDERED: Albuterol-Ipratrop 3 mg / 0.5 (3 ml) UD IH SCH (20:00)
--- NOTE | 2018-01-14 20:10 | US ---
HISTORY: Leg pain and swelling. Evaluate for DVT PHYSICIAN(S): Austin Muse MD. TECHNIQUE: Duplex sonography and color-flow Doppler with graded compression were used to evaluate the deep venous systems of both lower extremities. FINDINGS: The visualized deep venous systems of both lower extremities are sonographically normal and compressible. Normal wave forms and augmentation are seen. There is no sonographic evidence for deep venous thrombosis in the visualized segments of both lower extremities. IMPRESSION: No sonographic evidence for deep venous thrombosis in the visualized segments of both lower extremities.
[2018-01-14] MEDS: Cefepime 1gm in NS 100ml 1 GM/100 ML BAG IVPB SCH (20:56)
[2018-01-14 21:15] VITALS: BMI 37.5
[2018-01-14] MEDS ORDERED: Pneumococcal 23-Valent Vaccine IM ONE (21:16)
[2018-01-14] MEDS ORDERED: Non Formulary Medication (Simvastatin [Zocor] 40 MG) PO SCH (22:00)
[2018-01-14] MEDS: Insulin Detemir 100 units/ml Vial (Levemir) SC SCH (22:14)
--- NOTE | 2018-01-15 00:06 | CON ---
DATE: 01/14/2018 NEPHROLOGY CONSULTATION LOCATION: [facility] HISTORY OF PRESENT ILLNESS: A 47-year-old female with past medical history of hypertension; diabetes; CAD, status post CABG, status post stent in 10/2016; morbid obesity; AKBAR on CPAP; and ESRD on hemodialysis (Wednesday, Wednesday, and Wednesday at [facility] since 11/2016 under [facility]), presented today for hemodialysis treatment but sent to ED due to complaint of chest pain and shortness of breath. Nephrology being consulted for ESRD care. The patient reports experiencing increasing shortness of breath since yesterday; also reporting midsternal chest pain; also reporting nausea and abdominal burning sensation in epigastric area as well as lower abdomen; denies any dysuria; urination otherwise has been per routine; patient also reporting some chills. Appetite has otherwise been well. The patient has been compliant with her medications including high dose of diuretics. The patient also complaining of left forearm pain status post left forearm AV graft placement earlier this month. PAST MEDICAL HISTORY: As above. The patient underwent left forearm AV graft placement just over 2 weeks ago; still being dialyzed via right IJ tunneled catheter; have not yet attempted to cannulate AV graft. SOCIAL HISTORY: Never smoked. REVIEW OF SYSTEMS: CONSTITUTIONAL: Previously with no anorexia. HEENT: Denies any difficulty swallowing, reporting some burning sensation in her nose. RESPIRATORY: Intermittent dyspnea, so supposed to go back to Pulmonary for CPAP adjustment but has not yet done so. CARDIOVASCULAR: As per HPI. Recent stress test done earlier this year was reassuring. GI: As per HPI. : As per HPI. MUSCULOSKELETAL: Chronic back pain. PSYCHIATRIC: Has disturbed sleep. NEURO: Gets numbness and pain in feet. SKIN: Patient coming off of prolonged antibiotic course for right distal foot cellulitis. PHYSICAL EXAMINATION: VITAL SIGNS: This afternoon blood pressure 155/90, heart rate 98, respirations 24, temperature 97.9, O2 sat 100% on room air. GENERAL: No distress. Conversing coherently in full sentences. HEENT: Moist mucous membranes. Nonicteric. No overt JVD. RESPIRATORY: Lungs clear to auscultation bilaterally. No rales or rhonchi. No wheezes. CARDIOVASCULAR: Heart sounds S1, S2 normal. No murmurs. No gallops. No rubs. GI: Abdomen soft, nontender, nondistended. : No overt bladder distention. EXTREMITIES: Bilateral 1+ lower leg pitting edema. Left forearm mildly edematous area over the graft, tender to touch. No erythema noted. Bruits present over the graft but not even. PSYCHIATRIC: Normal mood, normal affect. SKIN: Warm. No cyanosis. LABORATORY DATA: CBC; WBC 5.4, hemoglobin 9, hematocrit 25.8, platelets 189. Chemistry panel; sodium 138, potassium 4.6, chloride 98, bicarb 23, BUN 55, creatinine 5.9, glucose 456, calcium 9, magnesium 2, albumin 4. ProBNP 23,900. Urine studies; UA 3+ protein, greater than 1000 mg/dL glucose, ketones negative, leukocyte esterase negative. IMAGING STUDIES: Chest x-ray, some pulmonary vascular congestion noted. Abdominal pelvis CT without contrast report mentioning right lower and middle lobe infiltrate. ASSESSMENT AND PLAN: 1. End-stage renal disease, on hemodialysis. The patient has been above her dry weight lately; clinically consistent with acute decompensated congestive heart failure; stable electrolyte status. We will dialyze urgently with ultrafiltration goal of 3 liters today and we will give extra treatment tomorrow. 2. Congestive heart failure. Acute decompensated systolic congestive heart failure; ejection fraction 45% on echo from late last year. The patient has been on high doses of diuretics. We will continue the same; continue with torsemide 100 mg b.i.d. and metolazone 10 mg b.i.d.; should continue beta cristhian and angiotensin-converting enzyme inhibitor as well. 3. Anemia of chronic kidney disease. Hemoglobin slightly below goal of 10-11 g. Patient was on aranesp 25 mcg every other week; We will give dose of Aranesp 25 mcg today and check iron studies; patient should avoid blood transfusions unless considered urgent as she is a future renal transplant candidate and blood transfusions can hinder her chances of obtaining a matching kidney donor. 4. Chronic kidney disease-mineral bone disorder. The patient's phosphorus most recently 5.7, still above goal; on sevelamer 3 tablets with each meal; should continue the same; getting hectorol on HD for secondary hyperparathyroidism of renal origin, will continue the same. 5. Coronary artery disease. Extensive cardiac history at an early age; despite reassuring stress test 6 months ago and negative troponin, agree with Cardiology evaluation for atypical chest pain. 6. Hypertensive ESRD - Erratic BP control due to excessive interdialytic weight gains; on extensive anti-htn regimen, should continue the same along with above diuretics. Thank you for this consult. We will be following up closely. Kalia Sultana MD [email or web address]
[2018-01-15] MEDS: Levalbuterol 0.63 MG/3 ML Inhal Soln UD IH SCH ×4 (02:40→19:32)
[2018-01-15] MEDS: Pantoprazole 40 mg EC Tab PO SCH ×2 (05:37→17:29)
[2018-01-15] MEDS: Insulin Lispro (humaLOG) MEDIUM Coverage SC SCH ×3 (08:13→17:27)
--- NOTE | 2018-01-15 09:05 | HP ---
DATE OF EXAM: 01/14/2018 HISTORY OF PRESENT ILLNESS: The patient is a 47-year-old morbidly obese female presents to the emergency room department as a walk-in complaining of abdominal pain, chest pain associated with nausea, started this morning according to the ER staff evaluation and the center medical director evaluation. The patient complained of lower abdominal pain with nausea, vomiting with some shortness of breath and also some upper abdominal pain, nausea, vomiting and some chest pain. REVIEW OF SYSTEMS: A 13-system review was done, pertinent positive and negative dictated above. CODE STATUS: Full code. LIVING WILL ADVANCE DIRECTIVE: None. ALLERGIES: ANESTHESIA. Height is 5 feet 7 inches. Weight is 240. BMI is 37, 38. HOME MEDICATIONS: Hydralazine 50 mg twice a day, Catapres 0.2 mg twice a day, Demadex 100 mg daily, Zocor 40 mg daily, Renagel 800 mg with meals, Lyrica 50 mg twice a day, Lopressor 50 mg twice a day, Reglan 10 mg three times a day, Zestril 20 mg daily, Xyzal 5 mg daily, Humalog sliding-scale insulin, Levemir a.c. and at bedtime, TriCor 54 mg daily, Plavix 75 mg daily, aspirin 81 mg daily, ascorbic acid 500 mg daily. SOCIAL HISTORY: Denies smoking, alcohol, drug use, communicable disease. MENSTRUAL HISTORY: The patient denies being . OCCUPATIONAL HISTORY: Disable. FAMILY HISTORY: Positive for hypertension, diabetes. PAST MEDICAL HISTORY: Significant for history of morbid obesity; history of insulin-requiring diabetes mellitus; history of multivessel coronary artery disease; history of coronary artery bypass graft; history of angioplasty stent placement; history of end-stage renal disease, hemodialysis dependent via the right upper chest [place] catheter Wednesday, Wednesday and Wednesday; history of left upper extremity AV fistula placement; history of hypertension; history of dyslipidemia; history of questionable systolic congestive heart failure; history of possible ischemic cardiomyopathy; history of diabetic neuropathy; history of diabetic gastroparesis; history of left main disease; history of congestive heart failure; history of peripheral vascular disease; history of non-ST elevation myocardial infarction; history of bilateral lower extremity venous stasis; history of questionable osteomyelitis of the right heel; history of degenerative joint disease; history of depression; history of oxygen-requiring emphysema; history of anemia; history of blood transfusion; history of chronic obstructive pulmonary disease, oxygen requiring; history of chronic foot ulcer; history of left foot ulcer debridement; history of right upper chest hemodialysis catheter placement; history of uncontrolled diabetes mellitus with elevated hemoglobin A1c; history of hypovitaminosis D; history of secondary hyperparathyroidism; history of proteinuria; history of last cardiac catheterization done in 10/2016; history of severe triple-vessel disease with left main stenosis; history of patent SVG to the RCA and SVG to the diagonal, patent SALDANA to the LAD with 90% anastomotic lesion, diffusely diseased LAD; history of angioplasty and stent placement of the LAD through the SALDANA with a drug-eluting stent; history of decreased left ventricular ejection fraction of 45%; history of moderately dilated left atrium; history of [id number] mitral annular calcification; history of impaired left ventricular systolic function; history of right foot cellulitis; history of possible sleep apnea; history of COPD exacerbation. The patient was seen in the emergency room by the center medical director. The patient is admitted to room 268, bed 2. PHYSICAL EXAMINATION: VITAL SIGNS: T-max 99.8 to 98.2 to 98.2. Telemetry shows sinus rhythm, heart rate 86, 98, 89, 93. Blood pressure 159/85, 148/86, 155/90, 164/79, 148/79. Respirations 20-24. O2 sat 98-100%. HEENT: The patient's head examination normocephalic, atraumatic. HEENT examination shows pinkish pale conjunctivae. Anicteric sclerae. No oropharyngeal lesion. No neck rigidity. CHEST: Shows median sternotomy surgical scar. Positive right upper chest dialysis catheter. Positive kyphosis. LUNGS: Shows diffuse breath sounds at the bases. Occasional rhonchi upper lung ryan. CARDIOVASCULAR: S1, S2. Positive systolic murmur left sternal border, right second intercostal space. ABDOMEN: Protuberant, obese. Positive bowel sounds. No hepatosplenomegaly noted. The patient is an obese abdomen. GENITALIA: Female. EXTREMITIES: Positive left upper extremity AV fistula. Lower-extremity shows positive pitting edema of the lower extremity. No calf tenderness noted. MUSCULOSKELETAL: Shows elevated body mass index of 38. NEUROLOGIC: Cranial nerves II-XII grossly intact. The patient is alert, awake, oriented x3. PSYCHIATRIC: Negative for anxiety, depression. Negative for suicidal or homicidality ideation. Negative for auditory or visual hallucination. SKIN: Shows positive right upper chest [place] catheter and left upper extremity AV fistula with positive thrill. DIAGNOSTIC DATA: WBC 5.4, hemoglobin/hematocrit 9/26, platelets 189. Granulocytes, 90% segs. Sodium 138, potassium 4.6, chloride 98, CO2 of 23, anion gap 21, BUN 55, creatinine 5.9, GFR 8, glucose 456, calcium 9, magnesium 2. LFTs are normal. Troponin 0.04. CPK 142. BNP 24,000, lipase 201. Urine; pH 7.5, specific gravity 1.220, urine protein greater than 300, small blood, small bacteria. The patient had a venous Doppler done which was negative. The patient had a chest x-ray done in the emergency room which shows cardiomegaly, prominent vascular marking, median sternotomy surgical scar. The patient had a CT of the abdomen and pelvis done which shows right middle lobe and right lower lobe atelectasis versus pneumonia, splenomegaly. EKG shows sinus rhythm, left axis deviation, interventricular block, T-wave inversion I, aVL. The patient was seen in the emergency room by physician spa assistant manager. The patient was evaluated in the ER. The patient was treated with multiple doses of Pepcid, Reglan, and morphine. IMPRESSION AND PLAN: 1. Abdominal pain, etiology unclear versus diabetic gastroparesis with symptoms of nausea, vomiting. 2. Atypical chest pain. 3. Morbid obesity with elevated body mass index. 4. Low-grade fever. 5. Tachycardia. 6. Hypertension. 7. Normocytic anemia. 8. Granulocytosis. 9. Increased anion gap metabolic acidosis. 10. End-stage renal disease, hemodialysis dependent. 11. Uncontrolled diabetes mellitus with hyperglycemia. 12. Proteinuria and bacteriuria and microscopic hematuria. 13. Cardiomegaly. 14. Pulmonary vascular congestion. 15. Right lower lobe, right middle lobe atelectasis versus pneumonia and infiltrate. 16. Splenomegaly. 17. Left axis deviation with intraventricular conduction block and lateral coronary ischemia. 18. Status post right upper chest dialysis catheter placement. 19. Possible acute exacerbation of systolic congestive heart failure. 20. Probable diabetic gastroparesis versus gastritis. 21. Uncontrolled diabetes. Plan at this time, the patient is to be admitted to telemetry. The patient has been ordered iron studies. The patient has been ordered serial labs, hemoglobin A1c, thyroid panel, repeat troponins, HIV, hepatitis A, B, C ordered. Blood cultures ordered. Diabetic education referral ordered. Procalcitonin, Legionella ordered. CURRENT CONSULTATIONS: 1. Nephrology. 2. Infectious Disease. 3. Cardiology. CURRENT MEDICATIONS: Hydralazine 50 mg twice a day ordered. The patient was given a dose of Aranesp 25 mcg ordered. Catapres 0.2 mg twice a day, Claritin 10 mg daily, Demadex 100 mg twice a day, Vibramycin 100 mg IV every 12 hours, Ecotrin 81 daily, Humalog medium dose sliding scale coverage a.c., Levemir 10 units a.m. and at bedtime, Lipitor 20 mg daily, Lopressor 50 mg twice a day, Lyrica 50 mg twice a day, cefepime 1 g IV every 24 hours ordered, Plavix 75 mg daily, Protonix 40 mg twice a day, Reglan 10 mg IV every 6 hours, Renagel 2400 mg a.c. t.i.d. The patient received a dose of Rocephin in the emergency room 1 g. The patient is on TriCor 48 mg daily, Tylenol p.o. suppository every 4 hours p.r.n. for fever, ascorbic acid 500 mg daily, Xopenex nebulizer 0.63 mg every 6 hours. The patient is started on Zaroxolyn 10 mg twice a day by Dr. Sultana. Zestril 20 mg daily. The patient received a dose of Zithromax 500 in the emergency room, Zofran 4 IV every 4 hours. Chest PT, oxygen 2 liters nasal cannula continuous. Echo with Doppler ordered. Renal diet ordered. Out of bed ordered. SANJAY stockings, SCDs ordered. Occupational therapy, physical therapy, iron studies ordered. At present, the patient is admitted to [facility] The patient's further management will be dependent upon the patient's clinical condition, hemodynamic status and as per the patient response to therapeutic intervention as per the patient's diagnostic test results and as per recommendation by all the physician involved in the care of the patient. In addition, the patient will be also requested to be seen by emotional support teacher, in addition to Infectious Disease, Nephrology and Cardiology. The patient will also be seen by emotional support teacher for evaluation of her symptoms. Dictated and electronically signed, not read. Moses MD [facility] # [id number]
[2018-01-15] MEDS ORDERED: cefTRIAXone 1 gm 1 GM/100 ML BAG IVPB SCH (10:00)
[2018-01-15] MEDS ORDERED: FENOFIBRATE 54 MG PO SCH (10:00)
--- NOTE | 2018-01-15 10:12 | PN ---
DATE: 01/15/2018 SUBJECTIVE: The patient is now seen in room 268, bed 2. The patient is out of bed to chair. The patient refused all the labs overnight. The patient refused some medications. The patient slept overnight well. The patient according to the nurses have been noncompliant and refusing. The patient does not appear to be in any distress. The patient states that her abdominal pain and chest pain have improved and nausea has significantly resolved. PHYSICAL EXAMINATION: VITAL SIGNS: T-max 99.8, down to 98; telemetry shows normal sinus rhythm, heart rate 77, 79, 84, 88; blood pressure 121/56, 162/62, 164/79, 148/79, 164/79, 155/90; respirations 20; O2 sat 100%. HEENT: Head examination normocephalic, atraumatic. HEENT examination shows pale conjunctivae. Anicteric sclerae. No oropharyngeal lesion. No neck rigidity. Positive right upper chest dialysis catheter noted. CHEST: Kyphosis. LUNGS: Shows occasional and positive rhonchi at the bases. Questionable decreased breath sound at the bases, left more than the right. CARDIOVASCULAR: S1, S2, regular rhythm. Positive systolic murmur, left sternal border, right second intercostal space. CHEST: Shows median sternotomy surgical scar. ABDOMEN: Soft, protuberant. Positive bowel sound. Nontender today. No appreciable hepatosplenomegaly noted. GENITALIA: Female. RECTAL: Deferred. EXTREMITY: Shows lower extremity shows no pitting edema, no calf tenderness, no Homans' sign. Lower extremity shows positive swelling of the lower extremity. Positive left upper extremity AV fistula, positive thrill noted. MUSCULOSKELETAL: Shows an elevated body mass index of 38. NEUROLOGICAL: The patient is alert, awake, oriented x3. Cranial nerves II through XII grossly intact. Gait examination is not tested. LABORATORY DATA: The patient refused morning labs and last night labs. Fingerstick blood sugar 332, 324. Troponin two sets are 0.04. The patient refused transfusion and still refusing transfusion of the PRBC. IMPRESSION AND PLAN: 1. Abdominal pain with nausea, vomiting. Etiology undetermined versus questionable and possible diabetic gastroparesis. 2. Severe noncompliance. 3. Hypertension. 4. Morbid obesity with elevated body mass index of 38. 5. Normocytic anemia with granulocytosis. 6. Questionable increased anion gap metabolic acidosis. 7. End-stage renal disease, hemodialysis dependent. 8. Hyperglycemia. 9. Uncontrolled diabetes mellitus. 10. Possible systolic congestive heart failure with elevated BNP. 11. Left upper extremity arteriovenous fistula placement. 12. End-stage renal disease, hemodialysis dependent three times a week via the right upper chest [place] catheter. 13. History of myocardial infarction, history of coronary artery disease, history of coronary artery bypass graft, history of angioplasty and stent placement. 14. Possible ischemic dilated cardiomyopathy. 15. Proteinuria. 16. Microscopic hematuria and bacteriuria. 17. Oxygen-requiring chronic obstructive pulmonary disease. 18. Acute exacerbation of systolic congestive heart failure. 19. Possible decompensated systolic congestive heart failure with elevated BNP. 20. Anemia of chronic kidney disease. 21. Hypertensive end-stage renal disease. 22. Hypertension. 23. Insulin-requiring diabetes mellitus. 24. Hyperlipidemia. 25. Diabetic neuropathy. 26. Diabetic gastroparesis. 1. Abdominal pain, etiology unclear versus diabetic gastroparesis with symptoms of nausea, vomiting. 2. Atypical chest pain. 3. Morbid obesity with elevated body mass index. 4. Low-grade fever. 5. Tachycardia. 6. Hypertension. 7. Normocytic anemia. 8. Granulocytosis. 9. Increased anion gap metabolic acidosis. 10. End-stage renal disease, hemodialysis dependent. 11. Uncontrolled diabetes mellitus with hyperglycemia. 12. Proteinuria and bacteriuria and microscopic hematuria. 13. Cardiomegaly. 14. Pulmonary vascular congestion. 15. Right lower lobe, right middle lobe atelectasis versus pneumonia and infiltrate. 16. Splenomegaly. 17. Left axis deviation with intraventricular conduction block and lateral coronary ischemia. 18. Status post right upper chest dialysis catheter placement. 19. Possible acute exacerbation of systolic congestive heart failure. 20. Probable diabetic gastroparesis versus gastritis. 21. Uncontrolled diabetes. Plan at this time, patient is declining packed red blood cells transfusion. The patient is refusing the labs. The patient was updated about her condition, diagnoses, need for further diagnostic therapeutic intervention, need for evaluation by Nephrology, Gastroenterology, Cardiology, Infectious Disease, etc. were discussed and explained to the patient at length. The patient's case is referred for diabetic education. Current medications: Hydralazine 50 mg twice a day, aspirin 81 mg p.o. daily, clonidine 0.2 mg twice a day, Claritin 10 mg daily, Demadex 100 mg twice a day, doxycycline 100 mg IV every 12, Humalog medium-dose sliding scale coverage before meals, Levemir 10 units a.m. and at bedtime, Lipitor 20 mg daily, Lopressor 50 mg twice a day, Lyrica 50 mg twice a day, cefepime 1 g IV every 24, Plavix 75 mg daily, Protonix 40 mg twice a day, Reglan 10 mg IV before meals and at bedtime, Renagel 2400 mg three times a day, Tricor 48 mg daily, Tylenol p.o. suppository every 4 p.r.n., Xopenex nebulizer 0.6 mg every 6 hours, Zaroxolyn 10 mg twice a day, Zestril 20 mg daily, Zofran 4 mg IV every 4 p.r.n. The patient is ordered chest PT, incentive spirometry, oxygen 2 L, echo with Doppler ordered. Out of bed ordered. Sequential compression devices, thromboembolic disease stockings ordered. Physical therapy, occupational therapy ordered. The patient updated about her condition. The patient was advised to comply with the physician and nurses' recommendation. The patient was explained about the risk and consequences of refusal of medical treatment, which she acknowledged understand, but the patient still refuses packed red blood cell transfusion. The patient was advised that the patient needs further evaluation and further diagnostic therapeutic intervention by other physicians involved in the care of the patient. All questions concerned answered, which the patient acknowledged and understand. Dictated and electronically signed, not read. Moses Lira MD [facility]
[2018-01-15 10:35] LABS: IRON 46 ug/dL (45-180)
[2018-01-15 10:38] LABS: EOS % 0.3 % (1.5-5.0); GRAN # 2.71 (1.4-6.5); GRAN % 73.4 % (50.0-68.0); HEMOGLOBIN 8.1 g/dL (12.0-16.0); LYMPH # 0.8 (1.2-3.4); MEAN CELL VOLUME 95.6 fl (80.0-105.0); MEAN CORPUSCULAR HEMOGLOBIN 32.4 pg (25.0-35.0); MEAN CORPUSCULAR HGB CONC 33.9 g/dl (31.0-37.0); MEAN PLATELET VOLUME 9.6 fl (7.0-11.0); MONO # 0.2 (0.1-0.6); MONO % 4.3 % (1.0-6.0); PLATELET COUNT 172 10^3/uL (120.0-450.0); RED CELL DISTRIBUTION WIDTH 13.4 % (11.5-14.5); WHITE BLOOD COUNT 3.7 10^3/ul (4.5-11.0)
[2018-01-15 10:45] LABS: % IRON SATURATION 19 % (20-55); TOTAL IRON BINDING CAPACITY 237 ug/dL (265-497)
[2018-01-15 10:46] LABS: ALB/GLOB RATIO 1.1 (1.1-1.8); ALBUMIN 3.6 g/dL (3.0-4.8); BILIRUBIN,DIRECT 0.3 mg/dL (0.0-0.4); CALCIUM 8.8 mg/dL (8.4-10.5)
[2018-01-15] MEDS ORDERED: Darbepoetin Alfa 25 mcg/ml Inj IVP ONE (10:48)
[2018-01-15 10:50] LABS: TROPONIN I 0.04 ng/mL
[2018-01-15 10:57] LABS: FREE T4 1.45 ng/dL (0.78-2.19); T4 8.5 ug/dL (5.5-11.0)
[2018-01-15] MEDS ORDERED: Doxercalciferol 4 mcg/2 ml Inj IV ONE (11:04)
--- NOTE | 2018-01-15 11:28 | CP.PCM.PN ---
Subjective - Date & Time of Evaluation Date of Evaluation: 01/15/18 Time of Evaluation: 11:00 - Subjective Subjective: Reports shortness of breath not much improved; couldn't stand for weight yesterday after HD session; feeling lightheaded; nausea improved somewhat; Objective - Vital Signs/Intake and Output Vital Signs (last 24 hours): Temp Pulse Resp BP Pulse Ox 99 F 79 20 121/56 L 100 01/15/18 06:00 01/15/18 06:00 01/15/18 06:00 01/15/18 06:00 01/15/18 00:01 Intake and Output: 01/15/18 01/15/18 06:59 18:59 Intake Total 200 240 Output Total 150 Balance 200 90 - Medications Medications: Current Medications Acetaminophen (Tylenol 325mg Tab) 650 mg PO Q4 PRN PRN Reason: Fever >100.4 F Last Admin: 01/14/18 20:52 Dose: 650 mg Acetaminophen (Tylenol 650 Mg Supp) 650 mg RC Q4H PRN PRN Reason: Fever >100.4 F Ascorbic Acid (Vitamin C 500 Mg Tab) 500 mg PO DAILY [facility] Aspirin (Ecotrin) 81 mg PO DAILY [facility] Atorvastatin Calcium (Lipitor) 20 mg PO HS [facility] Last Admin: 01/14/18 22:21 Dose: Not Given Clonidine HCl (Catapres) 0.2 mg PO BID [facility] Last Admin: 01/14/18 20:53 Dose: 0.2 mg Clopidogrel Bisulfate (Plavix) 75 mg PO QAM [facility] Fenofibrate (Tricor) 48 mg PO DAILY [facility] Heparin Sodium (Porcine) (Heparin) 2,200 units ICA MOWEFR [facility] Last Admin: 01/14/18 17:12 Dose: 2,200 units Heparin Sodium (Porcine) (Heparin) 2,400 units ICV MOWEFR [facility] Last Admin: 01/14/18 17:13 Dose: 2,400 units Hydralazine HCl (Apresoline) 50 mg PO BID [facility] Last Admin: 01/14/18 20:53 Dose: 50 mg Doxycycline Hyclate 100 mg/ (Sodium Chloride) 100 mls @ 100 mls/hr IVPB Q12 SELWYN PRN Reason: Protocol Last Admin: 01/14/18 21:48 Dose: 100 mls/hr Cefepime HCl (Maxipime 1gm) 1 gm in 100 mls @ 100 mls/hr IVPB Q24H [facility] PRN Reason: Protocol Stop: 01/21/18 18:01 Last Admin: 01/14/18 20:56 Dose: 100 mls/hr Insulin Detemir (Levemir) 10 unit SC AMHS [facility] Last Admin: 01/14/18 22:14 Dose: 10 unit Insulin Human Lispro (Humalog Med) 0 units SC AC [facility] PRN Reason: Protocol Last Admin: 01/15/18 08:13 Dose: 7 units Levalbuterol HCl (Xopenex) 0.63 mg IH [id number] [facility] Last Admin: 01/15/18 08:28 Dose: 0.63 mg Lisinopril (Zestril) 20 mg PO QAM [facility] Loratadine (Claritin) 10 mg PO DAILY [facility] Metoclopramide HCl (Reglan) 10 mg IVP ACHS [facility] Last Admin: 01/15/18 08:16 Dose: Not Given Metolazone (Zaroxolyn) 10 mg PO BID [facility] Last Admin: 01/14/18 18:29 Dose: Not Given Metoprolol Tartrate (Lopressor) 50 mg PO BRKDIN [facility] Last Admin: 01/14/18 20:53 Dose: 50 mg Ondansetron HCl (Zofran Inj) 4 mg IVP Q4H PRN PRN Reason: Nausea/Vomiting Last Admin: 01/14/18 21:02 Dose: 4 mg Pantoprazole Sodium (Protonix Ec Tab) 40 mg PO 0600,1600 [facility] Last Admin: 01/15/18 05:37 Dose: Not Given Pregabalin (Lyrica) 50 mg PO BID [facility] Last Admin: 01/14/18 20:43 Dose: Not Given Sevelamer HCl (Renagel) 2,400 mg PO ACTID [facility] Last Admin: 01/15/18 08:17 Dose: Not Given Torsemide (Demadex) 100 mg PO BID [facility] Last Admin: 01/14/18 21:01 Dose: Not Given - Labs Labs: 01/15/18 09:00 01/15/18 09:00 - Constitutional Appears: Non-toxic, No Acute Distress - Eye Exam Eye Exam: absent: Scleral icterus - ENT Exam ENT Exam: Mucous Membranes Moist - Respiratory Exam Respiratory Exam: Clear to Ausculation Bilateral. absent: Respiratory Distress - Cardiovascular Exam Cardiovascular Exam: RRR, +S1, +S2. absent: Gallop - GI/Abdominal Exam GI & Abdominal Exam: Soft. absent: Distended, Tenderness - Extremities Exam Additional comments: trace b/l lower leg edema; L forearm AVG with inconsistent bruit, tenderness over area improved; - Neurological Exam Neurological Exam: Alert, Awake - Psychiatric Exam Psychiatric exam: Normal Mood. absent: Agitated - Skin Skin Exam: Warm. absent: Cyanosis Assessment and Plan (1) ESRD (end stage renal disease) on dialysis Assessment & Plan: Stable electrolyte status following HD treatment yesterday; still significantly above dry weight of 106 kg (~111 kg today); giving extra UF only session today; continuing with diuretics, will add aldactone as well; will obtain 24 hr urine collection to assess volume on diuretics; Status: Chronic (2) Congestive heart failure Assessment & Plan: Acute decompensated systolic CHF; needs volume off, see above; continue B- cristhian and LESTER inhibitor; Status: Acute (3) Pneumonia Assessment & Plan: Being treated as HCAP; cefepime being dosed for HD; Status: Acute (4) Anemia in ESRD (end-stage renal disease) Assessment & Plan: Hgb dropping in the setting of acute illness; agree with checking stool for occult blood; patient advised that while she should hold off on any blood transfusions as much as possible (given future transplant status), if hgb drops to ~7g, will need prbc transfusion especially given severe CAD history; -giving extra aranesp dose 75 mcg today; -if preliminary blood culture negative, will give dose of IV iron; Status: Chronic (5) Hypertensive CKD, ESRD on dialysis Assessment & Plan: Very labile BP, controlled after getting clonidine yesterday; will decrease standing clonidine to 0.1 mg and keep prn dose of 0.1 mg given that we need to remove as much volume as possible; continue rest of meds; Status: Chronic (6) Chronic kidney disease-mineral and bone disorder Assessment & Plan: Phos controlled, continue with hectorol 1 mcg on HD and sevelamer 3 tabs w/ meals; Status: Chronic
[2018-01-15 11:37] LABS: HEPATITIS B SURFACE AG Negative (NEGATIVE)
[2018-01-15 11:43] LABS: HEPATITIS A IGM NEGATIVE (NEGATIVE); HEPATITIS B CORE AB NEGATIVE (NEGATIVE)
[2018-01-15 11:55] LABS: HEPATITIS C ANTIBODY NEGATIVE (NEGATIVE)
[2018-01-15] MEDS: metOLazone 5 MG TAB PO SCH ×2 (14:55→22:22)
[2018-01-15] MEDS: Insulin Detemir 100 units/ml Vial (Levemir) SC SCH ×2 (14:56→22:10)
--- NOTE | 2018-01-15 15:48 | CON ---
DATE: 01/15/2018 LOCATION: The patient is seen in room 268, bed 2. CHIEF COMPLAINT: Weakness. HISTORY OF PRESENT ILLNESS: This is a 47-year-old female with past medical history significant for end-stage renal disease, on hemodialysis with diabetes mellitus, coronary artery disease, myocardial infarction, hypertension, history of coronary artery bypass graft in 2013, has a dialysis catheter, who was admitted with weakness. The patient had recent hospitalization for a right foot skin and skin infection with Klebsiella and Enterococcus, was treated with antibiotics and last month had AV fistula placement of left arm by Dr. Radha Coffey. The patient returns. The patient was seen in the emergency room, admitted, complaining of abdominal pain, nausea and vomiting, shortness of breath. This morning, she states she feels better. There has been no fevers. No chills. The patient states she had low-grade fevers of 99. PAST MEDICAL HISTORY: Significant for end-stage renal disease, on hemodialysis; hypertension; diabetes; coronary artery disease; myocardial infarction and hyperlipidemia; arthritis and osteomyelitis of the right heel; depression. PAST SURGICAL HISTORY: Significant for left arm fistula, coronary artery bypass graft in 2013, dialysis catheter. ALLERGIES: THE PATIENT IS ALLERGIC TO ANESTHESIA. MEDICATIONS AT HOME: Reveals the patient to be on Klonopin and torsemide and Zocor and metoprolol. PHYSICAL EXAMINATION: VITAL SIGNS: She is in bed with a temperature of 99.9, pulse of 98 and respiratory rate of 20, it was up to 24 and blood pressure is 160/60. HEENT: Examination of HEENT is unremarkable. NECK: Supple. LUNGS: Have decreased breath sounds. HEART: Normal S1, S2. ABDOMEN: Soft, nontender. LABORATORY DATA: Laboratory examination reveals the patient's white count is 5.4, hemoglobin of 9, platelets of 189. Chemistries reveals the patient has a BUN of 55, creatinine of 5.9. A urinalysis is noted with 0-2 wbc's. The patient had a CAT scan of the abdomen, which reveals no acute findings and lower thorax subsegmental infiltrate of the right lower lobe, right middle lobe. The patient had a chest x-ray, which showed no active disease. Dr. Sultana's consultation has been reviewed. history and physical examination is reviewed. ASSESSMENT AND PLAN: A 47-year-old female with end-stage renal disease, on hemodialysis; diabetes; coronary artery disease; myocardial infarction; hypertension; hyperlipidemia; arthritis; history of right heel osteomyelitis; admitted with low-grade fevers, tachycardia, dyspnea and infiltrate on the right lower lobe. The CAT scan of the abdomen is picked up with #1 is sepsis with a right lower lobe healthcare-associated pneumonia. Treat the patient with doxycycline and cefepime and dose of vancomycin must have been given in the emergency room. We will check on the blood cultures, urine cultures and procalcitonin and Legionella antigen. I will make further recommendations upon availability of initial workup results. Merritt Luo MD
[2018-01-15] MEDS: Cefepime 1gm in NS 100ml 1 GM/100 ML BAG IVPB SCH (17:27)
[2018-01-15 18:07] LABS: FOLATE 11.6 ng/mL
--- NOTE | 2018-01-15 18:46 | CON ---
DATE: 01/15/2018 REQUESTING PHYSICIAN: Moses Lira MD REASON FOR CONSULTATION: I have been asked to see this 47-year-old female with end-stage renal disease on hemodialysis, coronary artery disease with a history of CABG and coronary artery stent placement, hypertension, diabetes mellitus, obstructive sleep apnea who comes to the hospital with chest pain, shortness of breath, lower abdominal pain and nausea and vomiting. She denies any hematemesis, melena or rectal bleeding. She denies any fevers or chills. She denies ingestion of any unusual foods. CT scan of the abdomen and pelvis was negative for any acute findings. PAST MEDICAL HISTORY: Notable for end-stage renal disease on hemodialysis, type 2 diabetes mellitus, coronary artery disease status post CABG and coronary artery stent placement, hypertension, obstructive sleep apnea. PAST SURGICAL HISTORY: Notable for AV graft placement in the left forearm. SOCIAL HISTORY: She denies cigarette smoking or alcohol use. FAMILY HISTORY: Noncontributory. REVIEW OF SYSTEMS: A 14-point review of systems is notable for chest pain, abdominal pain, nausea, vomiting. PHYSICAL EXAMINATION: GENERAL: A morbidly obese female lying in bed in no acute distress. VITAL SIGNS: Reveal temperature of 99, blood pressure 121/56, heart rate is 79. Her is 38.4. HEENT: Reveal sclerae to be white. Conjunctivae pale. NECK: Supple. CHEST: Reveal lungs to be clear. HEART: Reveals a regular rate and rhythm. ABDOMEN: Obese, soft, mild diffuse tenderness. No rebound. No guarding. EXTREMITIES: Show no edema. She does have a AV fistula in her left arm. LABORATORY DATA: Reveal hemoglobin of 8.1, white blood cell count 3.7, platelet count 172,000, reticulocyte count is 2.87. Chemistries reveal potassium 3.5, BUN 33, creatinine 4.5, blood sugar 329. AST, ALT, alkaline phosphatase were all normal. CT scan of the abdomen and pelvis did not reveal any acute findings. IMPRESSION: 1. A 47-year-old female was admitted to the hospital with chest pain, abdominal pain, nausea, and vomiting. Her symptoms maybe either due to a gastroenteritis or gastroparesis. She is noted to have mild cardiomegaly and mild vascular congestion on chest x-ray. Her symptoms maybe related to congestive heart failure. 2. Anemia, most likely anemia of chronic disease. 3. End-stage renal disease on hemodialysis. 4. Stable coronary artery disease. RECOMMENDATIONS: 1. Continue pantoprazole 40 mg p.o. twice a day as well as Reglan 10 mg IV before meals and at bedtime. 2. Check stool for occult blood. 3. Continue renal diet. Sunil Pedraza MD
[2018-01-16] MEDS: Levalbuterol 0.63 MG/3 ML Inhal Soln UD IH SCH ×4 (01:28→19:43)
[2018-01-16] MEDS: Pantoprazole 40 mg EC Tab PO SCH ×3 (05:26→16:26)
[2018-01-16 07:41] LABS: BASO # 0.01 K/mm3 (0.0-2.0); BASO % 0.3 % (0.0-3.0); EOS # 0.2 (0.0-0.7); EOS % 4.7 % (1.5-5.0); GRAN # 2.44 (1.4-6.5); GRAN % 63.1 % (50.0-68.0); HEMOGLOBIN 8.9 g/dL (12.0-16.0); LYMPH # 0.7 (1.2-3.4); LYMPH % 17.4 % (22.0-35.0); MEAN CELL VOLUME 95.6 fl (80.0-105.0); MEAN CORPUSCULAR HEMOGLOBIN 32.4 pg (25.0-35.0); MEAN CORPUSCULAR HGB CONC 33.8 g/dl (31.0-37.0); MEAN PLATELET VOLUME 9.8 fl (7.0-11.0); MONO # 0.6 (0.1-0.6); MONO % 14.5 % (1.0-6.0); RBC 2.75 10^6/uL (3.5-6.1); RED CELL DISTRIBUTION WIDTH 13.4 % (11.5-14.5); WHITE BLOOD COUNT 3.9 10^3/ul (4.5-11.0)
[2018-01-16 07:55] LABS: ALB/GLOB RATIO 1.1 (1.1-1.8); ALBUMIN 3.6 g/dL (3.0-4.8); BILIRUBIN,DIRECT 0.4 mg/dL (0.0-0.4); CALCIUM 8.9 mg/dL (8.4-10.5)
[2018-01-16] MEDS: Insulin Lispro (humaLOG) MEDIUM Coverage SC SCH ×3 (08:28→16:41)
[2018-01-16] MEDS: metOLazone 5 MG TAB PO SCH ×2 (09:51→18:12)
[2018-01-16] MEDS: Insulin Detemir 100 units/ml Vial (Levemir) SC SCH ×2 (10:09→16:42)
--- NOTE | 2018-01-16 11:06 | PN ---
DATE: 01/16/2018 SUBJECTIVE: The patient is seen earlier today in room 268, bed 2. No fevers and chills. PHYSICAL EXAMINATION: VITAL SIGNS: On exam, temperature is 98, blood pressure is 120/60, respiratory rate of 20, heart rate of 71. HEENT: Examination of HEENT is unremarkable. NECK: Supple. LUNGS: Have decreased breath sounds. HEART: Normal S1, S2. ABDOMEN: Soft, nontender. LABORATORY DATA: Laboratory examination reveals a white count of 3.9, hemoglobin of 8, platelets of 190. Chemistries reveals a BUN of 52, creatinine of 6. Urinalysis is noted. Serology is noted. Microbiology reveals the blood cultures are no growth. ASSESSMENT AND PLAN: A 47-year-old female, seen earlier today in 268, bed 2 with end-stage renal disease, on hemodialysis; diabetes; coronary artery disease; myocardial infarction; hypertension; hyperlipidemia; arthritis; history of a right heel osteomyelitis. Admitted with low-grade fevers, tachycardia, dyspnea and infiltrate in the right lower lobe with #1 is sepsis with a right lower lobe healthcare-associated pneumonia, on intermittent vancomycin, doxycycline and day #2 of antibiotics. The patient is also on cefepime. We will follow with you. Merritt Luo MD
[2018-01-16] MEDS: Lactobacillus Acidophilus 500 MU Cap PO SCH ×2 (14:37→18:12)
--- NOTE | 2018-01-16 14:49 | PN ---
DATE: 01/16/2018 FOLLOWUP SUBJECTIVE: The patient is still experiencing mild shortness of breath; however, she felt better after chest physical therapy and she denies the substernal chest pain. PHYSICAL EXAMINATION: VITAL SIGNS: Blood pressure 138/88, heart rate 90, temperature 98.4, respirations 20. HEENT: Pale conjunctivae and facial edema. CHEST: Diminished breath sounds over the bases. HEART: S1 and S2 regular. EXTREMITIES: 1+ pitting edema. LABORATORY DATA: Hemoglobin and hematocrit 8.9 and 26.3, white count 3.9, platelet count 190,000. SMA-7: Sodium 138, potassium 4.2, chloride 97, CO2 of 27, glucose 174, BUN 52, creatinine 6. Venous Doppler of lower extremity, no sonographic evidence of DVT in the visualized segments. ASSESSMENT: 1. Status post volume overload. 2. Coronary artery disease, status post recent coronary artery bypass surgery. 3. End-stage renal disease, on hemodialysis. 5. Hypertension, hyperlipidemia and diabetes mellitus. RECOMMENDATIONS: Continue Aldactone 25 mg once a day, hydralazine 50 mg b.i.d., clonidine 0.1 mg every 8 hours, Demadex 100 mg twice a day, doxycycline 100 mg intravenously every 12 hours, aspirin 81 mg once a day, subcutaneous heparin, Lipitor at 20 mg once a day, Lopressor 50 mg once a day, Protonix 40 mg p.o. twice a day, TriCor 48 mg once a day, Zestril 20 mg once a day, Zaroxolyn 10 mg twice a day. I dictated a consultation on the patient yesterday, which is not available yet on the [employer] database and if it remains unavailable or it get lost, I will dictate a brief note as I have and evaluated the patient yesterday while she is on hemodialysis. Gustavo Cintron MD
--- NOTE | 2018-01-16 16:21 | PN ---
DATE: 01/16/2018 SUBJECTIVE: The patient is sitting up in bed comfortable. She denies any further nausea and vomiting. She is tolerating solid foods. Her abdominal pain is less. She did have approximately 5 episodes of diarrhea yesterday. She has not had any further diarrhea today. PHYSICAL EXAMINATION: VITAL SIGNS: Reveal blood pressure 138/88, heart rate 90. She is afebrile. She is obese with a BMI of 37.3. HEENT: Reveals sclerae to be white. Conjunctivae pink. NECK: Supple. CHEST: Reveal lungs to be clear. HEART: Reveals a regular rate and rhythm. ABDOMEN: Obese, soft, nontender. EXTREMITIES: Show no edema. She does have an AV fistula in her left arm. LABORATORY DATA: Reveal white blood cell count 3.9, hemoglobin up to 8.9. Hepatitis serology is negative. Chemistries reveal BUN 52, creatinine 6. IMPRESSION: 1. A 47-year-old female with end-stage renal disease, on hemodialysis. 2. Diabetes mellitus. 3. Chronic anemia. 4. Coronary artery disease with nausea, vomiting, abdominal pain and recently with diarrhea. I suspect that this is an acute gastroenteritis. Her hemoglobin is back to her baseline. RECOMMENDATIONS: 1. Check stool for C&S, O&P and C. diff. 2. Continue IV Reglan and Protonix. The patient is stable from a GI standpoint. Sunil Pedraza MD
--- NOTE | 2018-01-16 17:55 | PN ---
DATE: 01/16/2018 SUBJECTIVE: The patient was seen in room 268, bed 2. The patient is out of bed to chair. The patient feels gassy feeling and feeling of hotness in the abdomen. The patient's telemetry shows sinus rhythm. The patient is seen sitting up in the bed. The patient is alert, awake, responsive. The patient has been also seen by Dr. Sultana from Nephrology. PHYSICAL EXAMINATION: VITAL SIGNS: T-max is 98.4. Telemetry shows sinus rhythm, heart rate 72, 68, 90. No arrhythmias noted. Blood pressure 125/73, 138/88, 138/88, 122/60, 113/64; respiration 19; O2 sat is 99-100%. HEENT: Head examination normocephalic, atraumatic. HEENT examination shows pale conjunctivae, anicteric sclerae. No oropharyngeal lesion. No neck rigidity. CHEST: Shows median sternotomy surgical scar. Chest examination also shows a positive right upper chest Uldall catheter. ABDOMEN: The patient's abdomen is obese, protuberant. Positive bowel sound. No palpable epigastric periumbilical right upper quadrant tenderness noted. No lower quadrant tenderness noted. No rebound tenderness noted. No costovertebral angle tenderness noted. GENITALIA: Female. EXTREMITIES: Shows positive left upper extremity AV fistula. Positive thrill. MUSCULOSKELETAL: Shows a body mass index of 37. DIAGNOSTICS: On 01/16/2018: WBC 3.9, hemoglobin and hematocrit 8.9 and 26.3, platelets are 190. Sodium 138, potassium 4.2, chloride 97, CO2 of 27, anion gap 18, BUN 52, creatinine 6, GFR 9, glucose 174, fructosamine is 546, hemoglobin A1c 11.7, phosphorus 6.5, magnesium 2.1. LFTs are normal. Vitamin D 25-hydroxy less than 12.8. Procalcitonin is 0.66, which is elevated. B12 of 316. Hepatitis A, B, C serologies are negative. HIV 1 and 2 fourth generation negative. Blood cultures, no growth. The patient refused PRBC transfusion. Venous Doppler of the both lower extremity was negative for DVT. IMPRESSION AND PLAN: 1. Abdominal pain, etiology undetermined. 2. Most likely diabetic gastroparesis, symptomatic with symptoms of abdominal pain. 3. Insulin-requiring diabetes mellitus. 4. End-stage renal disease, hemodialysis requiring 3 times a week. 5. Hyperprocalcitoninemia. 6. Low-grade fever. 7. History of coronary artery disease, coronary artery bypass graft, history of angioplasty, stent placement and myocardial infarction. 8. History of hypertension, hyperlipidemia. 9. History of right heel osteomyelitis. 10. Sepsis with right lower lobe, right middle lobe pneumonia. 11. Poor compliance. 12. Symptomatic diabetic gastroparesis with symptoms of abdominal pain, nausea, vomiting. 13. Volume overload and fluid overload with pulmonary vascular congestion and possible systolic congestive heart failure. 14. End-stage renal disease, hemodialysis dependent. 15. Acute decompensated systolic congestive heart failure. 16. Healthcare-associated pneumonia. 17. Anemia of chronic kidney disease. 18. Hypertensive chronic kidney disease and end-stage renal disease. 19. Sepsis with right lower lobe, right middle lobe pneumonia. 20. Hypertensive cardiovascular disease with nonspecific intraventricular conduction block with left axis deviation and questionable coronary ischemia. 21. Hypertension. 22. Leukopenia. 24. Granulocytosis. 25. Uncontrolled insulin-requiring diabetes mellitus with hemoglobin A1c of 11.7 and fructose level of 546. 26. Secondary hyperparathyroidism with hyperphosphatemia. 27. Hypovitaminosis D. 28. Acute recurrent systolic congestive heart failure with elevated BNP. 29. Proteinuria with microscopic hematuria and bacteriuria. 1. Abdominal pain with nausea, vomiting. Etiology undetermined versus questionable and possible diabetic gastroparesis. 2. Severe noncompliance. 3. Hypertension. 4. Morbid obesity with elevated body mass index of 38. 5. Normocytic anemia with granulocytosis. 6. Questionable increased anion gap metabolic acidosis. 7. End-stage renal disease, hemodialysis dependent. 8. Hyperglycemia. 9. Uncontrolled diabetes mellitus. 10. Possible systolic congestive heart failure with elevated BNP. 11. Left upper extremity arteriovenous fistula placement. 12. End-stage renal disease, hemodialysis dependent three times a week via the right upper chest Uldall catheter. 13. History of myocardial infarction, history of coronary artery disease, history of coronary artery bypass graft, history of angioplasty and stent placement. 14. Possible ischemic dilated cardiomyopathy. 15. Proteinuria. 16. Microscopic hematuria and bacteriuria. 17. Oxygen-requiring chronic obstructive pulmonary disease. 18. Acute exacerbation of systolic congestive heart failure. 19. Possible decompensated systolic congestive heart failure with elevated BNP. 20. Anemia of chronic kidney disease. 21. Hypertensive end-stage renal disease. 22. Hypertension. 23. Insulin-requiring diabetes mellitus. 24. Hyperlipidemia. 25. Diabetic neuropathy. 26. Diabetic gastroparesis. 1. Abdominal pain, etiology unclear versus diabetic gastroparesis with symptoms of nausea, vomiting. 2. Atypical chest pain. 3. Morbid obesity with elevated body mass index. 4. Low-grade fever. 5. Tachycardia. 6. Hypertension. 7. Normocytic anemia. 8. Granulocytosis. 9. Increased anion gap metabolic acidosis. 10. End-stage renal disease, hemodialysis dependent. 11. Uncontrolled diabetes mellitus with hyperglycemia. 12. Proteinuria and bacteriuria and microscopic hematuria. 13. Cardiomegaly. 14. Pulmonary vascular congestion. 15. Right lower lobe, right middle lobe atelectasis versus pneumonia and infiltrate. 16. Splenomegaly. 17. Left axis deviation with intraventricular conduction block and lateral coronary ischemia. 18. Status post right upper chest dialysis catheter placement. 19. Possible acute exacerbation of systolic congestive heart failure. 20. Probable diabetic gastroparesis versus gastritis. 21. Uncontrolled diabetes. Plan at this time, the patient has been ordered serial labs, serial CBC, CMP, LFT, magnesium, phosphorus. PTH level is still pending. H. pylori urea breath test is pending. Current consultation: Nephrology, Dr. Sultana; Gastroenterology; Hematology/Oncology; Infectious Disease; Cardiology. The patient is yet to be seen by Hematology and Cardiology. The patient's case referred to Diabetic Education. CURRENT MEDICATIONS: 1. Aldactone 25 mg twice a day. 2. Hydralazine 50 mg twice a day. 3. The patient received Aranesp 75 mcg x1 dose yesterday. 4. Bacid 1 capsule twice a day. 5. Catapres 0.1 mg every 8 hours p.r.n. 6. Clonidine 0.1 mg twice a day. 7. Claritin 10 mg daily. 8. Demadex 100 mg twice a day. 9. Doxycycline 100 mg IV every 12. 10. Ecotrin 81 mg daily. 11. Humalog medium-dose sliding scale coverage before meals. 12. Venofer 100 mg was given x1 dose yesterday. 13. Levemir 10 units twice a day, which will be increased because of the patient's uncontrolled diabetes. Levemir will be increased to 20 units with breakfast and dinner. 14. Lipitor 20 mg at bedtime. 15. Lopressor 50 mg with breakfast, dinner. 16. Lyrica 50 mg twice a day. 17. Cefepime 1 g IV every 24. 18. Plavix 75 mg daily. 19. Protonix 40 mg twice a day. 20. Reglan 10 mg IV before meals and at bedtime. 21. Renagel 2400 mg three times a day. 22. TriCor 48 mg daily. 23. Tylenol 650 mg p.o. suppository every 4 p.r.n. 24. Vitamin C 500 mg daily. 25. Xopenex nebulizer 0.63 mg every 6 hours. 26. Zaroxolyn 10 mg twice a day as per Nephrology. 27. Zestril 20 mg daily. 28. Zofran 4 mg IV every 4 p.r.n. Chest PT, oxygen 2 L continuous humidified ordered. Echo with Doppler ordered, not done today. The patient is on renal diet. Out of bed. SANJAY rosenthal, DICKs. Occupational therapy, physical therapy. Continuation of the hemodialysis ordered. At present, the patient will be continued on the above therapeutic intervention. The patient's telemetry will be discontinued as the patient had no arrhythmias and the patient's overall clinical status has improved. The patient updated about her condition, diagnoses, treatment plan, management plan. The patient advised about weight loss. The patient advised about increased activity. The patient advised and explained about all the consequences and risk of uncontrolled diabetes, obesity, hypertension, renal failure, which she acknowledged and understood. The patient was also explained about the end organ damage including diabetic retinopathy and loss of limb, which she also acknowledged and understand. Dictated and electronically signed, not read. Moses Lira MD MTDD
[2018-01-16] MEDS: Cefepime 1gm in NS 100ml 1 GM/100 ML BAG IVPB SCH (18:12)
--- NOTE | 2018-01-16 21:34 | CP.PCM.PN ---
Objective - Vital Signs/Intake and Output Vital Signs (last 24 hours): Temp Pulse Resp BP Pulse Ox 97.9 F 74 19 119/73 99 01/16/18 12:00 01/16/18 18:12 01/16/18 12:00 01/16/18 18:13 01/16/18 06:00 Intake and Output: 01/16/18 01/17/18 18:59 06:59 Intake Total 800 Output Total 50 Balance 750 - Medications Medications: Current Medications Acetaminophen (Tylenol 325mg Tab) 650 mg PO Q4 PRN PRN Reason: Fever >100.4 F Last Admin: 01/15/18 15:07 Dose: 650 mg Acetaminophen (Tylenol 650 Mg Supp) 650 mg RC Q4H PRN PRN Reason: Fever >100.4 F Ascorbic Acid (Vitamin C 500 Mg Tab) 500 mg PO DAILY [facility] Last Admin: 01/16/18 09:52 Dose: 500 mg Aspirin (Ecotrin) 81 mg PO DAILY [facility] Last Admin: 01/16/18 09:53 Dose: 81 mg Atorvastatin Calcium (Lipitor) 20 mg PO HS [facility] Last Admin: 01/15/18 22:10 Dose: 20 mg Clonidine HCl (Catapres) 0.1 mg PO Q8H PRN PRN Reason: Systolic Blood Pressure Clonidine HCl (Catapres) 0.1 mg PO BID [facility] Last Admin: 01/16/18 18:13 Dose: Not Given Clopidogrel Bisulfate (Plavix) 75 mg PO QAM [facility] Last Admin: 01/16/18 09:51 Dose: 75 mg Fenofibrate (Tricor) 48 mg PO DAILY [facility] Last Admin: 01/16/18 09:51 Dose: 48 mg Heparin Sodium (Porcine) (Heparin) 2,200 units ICA [facility] Last Admin: 01/14/18 17:12 Dose: 2,200 units Heparin Sodium (Porcine) (Heparin) 2,400 units ICV [facility] Last Admin: 01/14/18 17:13 Dose: 2,400 units Hydralazine HCl (Apresoline) 50 mg PO BID [facility] Last Admin: 01/16/18 18:12 Dose: 50 mg Doxycycline Hyclate 100 mg/ (Sodium Chloride) 100 mls @ 100 mls/hr IVPB Q12 [facility] PRN Reason: Protocol Last Admin: 01/16/18 09:49 Dose: 100 mls/hr Cefepime HCl (Maxipime 1gm) 1 gm in 100 mls @ 100 mls/hr IVPB Q24H [facility] PRN Reason: Protocol Stop: 01/21/18 18:01 Last Admin: 01/16/18 18:12 Dose: 100 mls/hr Insulin Detemir (Levemir) 20 unit SC ACBD [facility] Last Admin: 01/16/18 16:42 Dose: 20 unit Insulin Human Lispro (Humalog Med) 0 units SC AC [facility] PRN Reason: Protocol Last Admin: 01/16/18 16:41 Dose: 1 units Lactobacillus Acidophilus (Bacid Acidophilus) 1 cap PO BID [facility] Last Admin: 01/16/18 18:12 Dose: 1 cap Levalbuterol HCl (Xopenex) 0.63 mg IH [id number] [facility] Last Admin: 01/16/18 19:43 Dose: 0.63 mg Lisinopril (Zestril) 20 mg PO QAM [facility] Last Admin: 01/16/18 09:51 Dose: 20 mg Loratadine (Claritin) 10 mg PO DAILY [facility] Last Admin: 01/16/18 09:52 Dose: 10 mg Metoclopramide HCl (Reglan) 10 mg IVP ACHS [facility] Last Admin: 01/16/18 16:26 Dose: 10 mg Metolazone (Zaroxolyn) 10 mg PO BID [facility] Last Admin: 01/16/18 18:12 Dose: 10 mg Metoprolol Tartrate (Lopressor) 50 mg PO BRKDIN [facility] Last Admin: 01/16/18 16:43 Dose: 50 mg Ondansetron HCl (Zofran Inj) 4 mg IVP Q4H PRN PRN Reason: Nausea/Vomiting Last Admin: 01/14/18 21:02 Dose: 4 mg Pantoprazole Sodium (Protonix Ec Tab) 40 mg PO 0600,1600 [facility] Last Admin: 01/16/18 16:26 Dose: 40 mg Pregabalin (Lyrica) 50 mg PO BID [facility] Last Admin: 01/16/18 18:15 Dose: Not Given Sevelamer HCl (Renagel) 2,400 mg PO ACTID [facility] Last Admin: 01/16/18 16:26 Dose: 2,400 mg Spironolactone (Aldactone) 25 mg PO BID [facility] Last Admin: 01/16/18 18:12 Dose: 25 mg Torsemide (Demadex) 100 mg PO BID [facility] Last Admin: 01/16/18 18:11 Dose: 100 mg - Labs Labs: 01/16/18 07:00 01/16/18 07:00 Assessment and Plan (1) ESRD (end stage renal disease) on dialysis Status: Chronic (2) Congestive heart failure Status: Acute (3) Pneumonia Status: Acute (4) Anemia in ESRD (end-stage renal disease) Status: Chronic (5) Hypertensive CKD, ESRD on dialysis Status: Chronic (6) Chronic kidney disease-mineral and bone disorder Status: Chronic
[2018-01-17] MEDS: Levalbuterol 0.63 MG/3 ML Inhal Soln UD IH SCH ×5 (01:50→19:51)
--- NOTE | 2018-01-17 03:15 | CON ---
DATE: 01/15/2018 (The patient was seen by me yesterday and consult was dictated; however, it has not shown up on the [facility] database, and I am dictating a backup note.) HISTORY OF PRESENT ILLNESS: The patient is a 47-year-old female, who has hypertension, diabetes mellitus, end stage renal disease on hemodialysis for slightly less than a year, underwent coronary artery bypass surgery at [facility]. She presented because of shortness of breath, and was found to be in volume overload, required emergency hemodialysis on the admission day, which is 01/14/2018, which was her regular scheduled day and underwent additional one when I saw her yesterday in the hemodialysis unit. The patient denies any substernal chest pain, and denies any associated diaphoresis. SOCIAL HISTORY: Nonsmoker. MEDICATIONS: Aldactone 25 mg twice a day was started yesterday, hydralazine 50 mg twice a day, clonidine 0.1 mg every 8 hours, Claritin 10 mg once a day, Demadex 100 mg p.o. twice a day, doxycycline 100 mg intravenously every 12 hours, aspirin 81 mg once a day, subcutaneous heparin with hemodialysis, Lopressor 50 mg twice a day, Lipitor 20 mg once a day, Plavix 75 mg once a day, Renagel 2.4 g p.o. t.i.d., Tricor 48 mg once a day, Xopenex inhaler every 6 hours p.r.n., Zaroxolyn 10 mg p.o. twice a day, Zestril 20 mg once a day, Zofran 4 mg intravenously every 4 hours p.r.n. for nausea and vomiting. REVIEW OF SYSTEMS: No fever or chills. No dizziness or syncope. PHYSICAL EXAMINATION: GENERAL: The patient is a middle-aged female, who does not appear to be in acute distress. VITAL SIGNS: As of yesterday, blood pressure 124/70, heart rate 82, temperature 98.6, respirations 20. HEENT: Pale conjunctivae. CHEST: Diminished breath sounds at the bases. HEART: S1 and S2 regular. ABDOMEN: Soft. EXTREMITIES: 1+ pitting edema. LABORATORY DATA: Hemoglobin and hematocrit as of yesterday 8.1 and 23.9, white count 3.7, platelet count 172,000. Yesterday's SMA-7, sodium 137, potassium 3.5, chloride 93, CO2 of 31, glucose 329, BUN 33, creatinine 4.3. DIAGNOSTIC DATA: Venous Doppler of lower extremity, no evidence of DVT in the visualized segments. Abdomen and pelvis CT scan without p.o. or IV contrast revealed no significant acute findings related to the patient's clinical presentation. Chest x-ray revealed cardiomegaly, mild CHF. Admission EKG revealed sinus rhythm at a rate of 86, nonspecific intraventricular conduction delay, Q wave abnormality, consider lateral ischemia. Troponins were 0.04 three times in a row. ProBNP is 23,900. Echocardiographic study in 06/2017 revealed normal ventricular size, mild concentric LVH with ejection fraction estimated at 45%. ASSESSMENT: 1. Congestive heart failure with mildly depressed left ventricular systolic function. 2. Status post volume overload. 3. End stage renal disease, on hemodialysis. 4. Uncontrolled diabetes mellitus. 5. Coronary artery disease, status post coronary artery bypass surgery a few month ago. RECOMMENDATIONS: Continue Aldactone 25 mg once a day, hydralazine 50 mg twice a day, clonidine 0.1 mg every 8 hours, IV doxycycline 100 mg every 12 hours, aspirin 81 mg once a day, Lipitor at 60 mg once a day, Plavix 75 mg once a day, Zestril 20 mg once a day, Zaroxolyn 10 mg twice a day. Gustavo Cintron MD
[2018-01-17] MEDS: Pantoprazole 40 mg EC Tab PO SCH ×2 (06:22→18:28)
[2018-01-17 08:43] VITALS: RESP 20
[2018-01-17] MEDS: Insulin Lispro (humaLOG) MEDIUM Coverage SC SCH ×3 (08:48→18:27)
[2018-01-17] MEDS: Insulin Detemir 100 units/ml Vial (Levemir) SC SCH ×2 (08:49→18:27)
[2018-01-17] MEDS: Lactobacillus Acidophilus 500 MU Cap PO SCH ×2 (10:00→18:28)
[2018-01-17] MEDS: metOLazone 5 MG TAB PO SCH ×2 (10:00→18:25)
[2018-01-17 12:06] LABS: BASO # 0.01 K/mm3 (0.0-2.0); BASO % 0.2 % (0.0-3.0); EOS # 0.1 (0.0-0.7); EOS % 2.5 % (1.5-5.0); GRAN # 3.65 (1.4-6.5); HEMOGLOBIN 8.4 g/dL (12.0-16.0); LYMPH # 0.8 (1.2-3.4); LYMPH % 17.2 % (22.0-35.0); MEAN CELL VOLUME 94.7 fl (80.0-105.0); MEAN CORPUSCULAR HEMOGLOBIN 31.8 pg (25.0-35.0); MEAN CORPUSCULAR HGB CONC 33.6 g/dl (31.0-37.0); MEAN PLATELET VOLUME 9.7 fl (7.0-11.0); MONO # 0.3 (0.1-0.6); MONO % 5.1 % (1.0-6.0); RBC 2.64 10^6/uL (3.5-6.1); RED CELL DISTRIBUTION WIDTH 13.4 % (11.5-14.5); WHITE BLOOD COUNT 4.9 10^3/ul (4.5-11.0)
[2018-01-17 12:17] LABS: ALB/GLOB RATIO 1.1 (1.1-1.8); ALBUMIN 3.6 g/dL (3.0-4.8); CALCIUM 8.8 mg/dL (8.4-10.5)
[2018-01-17] MEDS ORDERED: Iron Sucrose 100 mg/5 ml Inj IVP ONE (12:18)
--- NOTE | 2018-01-17 12:44 | CP.PCM.PN ---
<Mara Brennan - Last Filed: 01/17/18 13:08> Subjective - Date & Time of Evaluation Date of Evaluation: 01/17/18 Time of Evaluation: 12:42 - Subjective Subjective: Medicine Progress Note - Dr Lira Service: Patient seen and examined at bedside. Per nursing no acute events overnight. Patient removed IV heplock and was refusing blood work and IV antibiotics this morning. States that she wants to go home. Patient reports that she breathing is improving. Abdominal pain decreasing and diarrhea has resolved. Patient for HD this morning. Denies headaches, dizziness, cp, palpitations, urinary symptoms. Objective - Vital Signs/Intake and Output Vital Signs (last 24 hours): Temp Pulse Resp BP Pulse Ox 98.5 F 77 20 135/65 99 01/17/18 06:00 01/17/18 06:00 01/17/18 06:00 01/17/18 06:00 01/17/18 06:00 Intake and Output: 01/17/18 01/17/18 06:59 18:59 Output Total 200 Balance -200 - Medications Medications: Current Medications Acetaminophen (Tylenol 325mg Tab) 650 mg PO Q4 PRN PRN Reason: Fever >100.4 F Last Admin: 01/15/18 15:07 Dose: 650 mg Acetaminophen (Tylenol 650 Mg Supp) 650 mg RC Q4H PRN PRN Reason: Fever >100.4 F Ascorbic Acid (Vitamin C 500 Mg Tab) 500 mg PO DAILY [facility] Last Admin: 01/16/18 09:52 Dose: 500 mg Aspirin (Ecotrin) 81 mg PO DAILY [facility] Last Admin: 01/16/18 09:53 Dose: 81 mg Atorvastatin Calcium (Lipitor) 20 mg PO HS [facility] Last Admin: 01/16/18 22:34 Dose: 20 mg Clonidine HCl (Catapres) 0.1 mg PO Q8H PRN PRN Reason: Systolic Blood Pressure Clonidine HCl (Catapres) 0.1 mg PO BID [facility] Last Admin: 01/16/18 18:13 Dose: Not Given Clopidogrel Bisulfate (Plavix) 75 mg PO QAM [facility] Last Admin: 01/16/18 09:51 Dose: 75 mg Fenofibrate (Tricor) 48 mg PO DAILY [facility] Last Admin: 01/16/18 09:51 Dose: 48 mg Heparin Sodium (Porcine) (Heparin) 2,200 units ICA MOWEFR [facility] Last Admin: 01/14/18 17:12 Dose: 2,200 units Heparin Sodium (Porcine) (Heparin) 2,400 units ICV [facility] Last Admin: 01/14/18 17:13 Dose: 2,400 units Hydralazine HCl (Apresoline) 50 mg PO BID [facility] Last Admin: 01/16/18 18:12 Dose: 50 mg Doxycycline Hyclate 100 mg/ (Sodium Chloride) 100 mls @ 100 mls/hr IVPB Q12 [facility] PRN Reason: Protocol Last Admin: 01/17/18 00:59 Dose: Not Given Cefepime HCl (Maxipime 1gm) 1 gm in 100 mls @ 100 mls/hr IVPB Q24H [facility] PRN Reason: Protocol Stop: 01/21/18 18:01 Last Admin: 01/16/18 18:12 Dose: 100 mls/hr Insulin Detemir (Levemir) 20 unit SC [facility] Last Admin: 01/17/18 08:49 Dose: 20 unit Insulin Human Lispro (Humalog Med) 0 units SC AC [facility] PRN Reason: Protocol Last Admin: 01/17/18 08:48 Dose: 1 units Lactobacillus Acidophilus (Bacid Acidophilus) 1 cap PO BID [facility] Last Admin: 01/16/18 18:12 Dose: 1 cap Levalbuterol HCl (Xopenex) 0.63 mg IH [id number] [facility] Last Admin: 01/17/18 06:10 Dose: 0.63 mg Lisinopril (Zestril) 20 mg PO QAM [facility] Last Admin: 01/16/18 09:51 Dose: 20 mg Loratadine (Claritin) 10 mg PO DAILY [facility] Last Admin: 01/16/18 09:52 Dose: 10 mg Metoclopramide HCl (Reglan) 5 mg IVP ACHS [facility] Metolazone (Zaroxolyn) 10 mg PO BID [facility] Last Admin: 01/16/18 18:12 Dose: 10 mg Metoprolol Tartrate (Lopressor) 50 mg PO BRKDIN [facility] Last Admin: 01/17/18 08:48 Dose: 50 mg Ondansetron HCl (Zofran Inj) 4 mg IVP Q4H PRN PRN Reason: Nausea/Vomiting Last Admin: 01/14/18 21:02 Dose: 4 mg Pantoprazole Sodium (Protonix Ec Tab) 40 mg PO 0600,1600 [facility] Last Admin: 01/17/18 06:22 Dose: 40 mg Pregabalin (Lyrica) 50 mg PO BID [facility] Last Admin: 01/16/18 18:15 Dose: Not Given Sevelamer HCl (Renagel) 2,400 mg PO ACTID [facility] Last Admin: 01/17/18 08:50 Dose: Not Given Spironolactone (Aldactone) 25 mg PO BID [facility] Last Admin: 01/16/18 18:12 Dose: 25 mg Torsemide (Demadex) 100 mg PO BID [facility] Last Admin: 01/16/18 18:11 Dose: 100 mg - Labs Labs: 01/17/18 11:05 01/17/18 11:05 - Additional Findings Additional findings: - Constitutional Appears: No Acute Distress, Older Than Stated Age, Chronically Ill, Other ( Morbidly obese.) - Head Exam Head Exam: ATRAUMATIC, NORMOCEPHALIC - Eye Exam Eye Exam: EOMI, Normal appearance. absent: Scleral icterus Pupil Exam: NORMAL ACCOMODATION - ENT Exam ENT Exam: Mucous Membranes Moist - Neck Exam Neck exam: Positive for: Normal Inspection - Respiratory Exam Respiratory Exam: Decreased Breath Sounds (at the bases), NORMAL BREATHING PATTERN. - Cardiovascular Exam Cardiovascular Exam: REGULAR RHYTHM, +S1, +S2. - GI/Abdominal Exam GI & Abdominal Exam: Normal Bowel Sounds, Soft. Additional comments: + Obese abdomen. - Extremities Exam Extremities exam: Positive for: pedal edema (+ 2), pedal pulses present. Negative for: normal capillary refill, tenderness - Back Exam Back exam: NORMAL INSPECTION - Neurological Exam Neurological exam: Alert, Oriented x3 - Psychiatric Exam Psychiatric exam: Normal Affect, Normal Mood - Skin Skin Exam: Dry, Normal Color, Warm Additional comments: + old healed wound on the right foot. No signs of acute infection. Right upper chest with HD port with clean dressing, no surrounding erythema noted left antecubital fossa with AV fistula Assessment and Plan - Assessment and Plan (Free Text) Assessment: Patient is a 47 y/o with PMHx of morbidly obese BMI 48, htn, hld, COPD on 2 liters nasal cannula, IDDM, ESRD ( HD M, W,F), CAD s/p CABG and stents, systolic CHF presenting with lower quadrant abdominal pain for 1 day, along with nausea and vomiting. Plan: 1) Abdominal pain along with nausea and vomiting likely diabetic gastroparesis ( resolved) - CT abdomen and pelvis with possible pneumonia - No acute findings on CT - Patient had gap of 17 and glucose of 456 on admission, s/p stat dose of 10 units insulin - UA with no ketones - diabetes control as stated below - Reglan and zofran prn for nausea/vomiting 2) Worsening dyspnea due to CHF exacerbation, RLL/RML pneumonia - Patient also has underlying copd, on home oxygen - will resume home oxygen - + elevated pro bnp on admission, troponin at baseline - No acute ischemic changes on EKG - Chest x-ray with vascular congestion and cardiomegaly - CT chest with lower lobe infiltration and atelectasis. - Antibiotics: Cefepime and doxycycline; continue Bacid 1 capsule BID - Procal 0.66, Urine legionella negative - Continue Chest PT, ISS use, 2L continuous humidified oxygen - Continue torsemide and metolazone as per nephro - F/U echocardiogram - Cardiology consulted - ID consulted 3) Acute on chronic anemia - Patient for possible renal transplant, will hold transfusing at this time - Recieved IV Venofer x 1 dose yesterday - No signs of active bleeding noted - On aranesp, continue ascorbic acid - AM labs drawn during dialysis, will follow up 4) Uncontrolled DM - Will continue with long acting and basal insulin - Continue Moderate dose ISS - Continue Levemir 20 units ACBD - Renal and carb controlled diet - hgb a1c 11.7 - Diabetic education 5) ESRD- on Hemodialysis MWF - Nephro on consult, help appreciated - Continue renagel - Patient is dialysis this morning 6) Vitamin D Deficiency - Ergocalciferol 1 tab PO Q7D 7) H/O HLD- on lipitor and tricor 8) H/O HTN- on clonidine, hydralazine 9) CAD s/o CABG and stents- on plavix, asa, and lopressor. 10) Peripheral neuropathy- continue with Lyrica 11) DVT and gi prophylaxis: Protonix, heparin sc/VTE device. Plan discussed with Dr Lira. Mara Brennan DO PGY-1 <[facility] - Last Filed: 01/18/18 17:22> Objective - Vital Signs/Intake and Output Vital Signs (last 24 hours): Temp Pulse Resp BP Pulse Ox 97.7 F 74 20 107/59 L 99 01/18/18 14:00 01/18/18 14:00 01/18/18 14:00 01/18/18 14:00 01/18/18 14:00 Intake and Output: 01/18/18 01/18/18 06:59 18:59 Intake Total 240 540 Balance 240 540 - Medications Medications: Current Medications Acetaminophen (Tylenol 325mg Tab) 650 mg PO Q4 PRN PRN Reason: Fever >100.4 F Last Admin: 01/17/18 20:40 Dose: 650 mg Acetaminophen (Tylenol 650 Mg Supp) 650 mg RC Q4H PRN PRN Reason: Fever >100.4 F Ascorbic Acid (Vitamin C 500 Mg Tab) 500 mg PO DAILY [facility] Last Admin: 01/18/18 11:02 Dose: 500 mg Aspirin (Ecotrin) 81 mg PO DAILY [facility] Last Admin: 01/18/18 11:00 Dose: 81 mg Atorvastatin Calcium (Lipitor) 20 mg PO HS [facility] Last Admin: 01/17/18 21:00 Dose: 20 mg Clonidine HCl (Catapres) 0.1 mg PO Q8H PRN PRN Reason: Systolic Blood Pressure Clonidine HCl (Catapres) 0.1 mg PO BID [facility] Last Admin: 01/18/18 11:00 Dose: 0.1 mg Clopidogrel Bisulfate (Plavix) 75 mg PO QAM [facility] Last Admin: 01/18/18 11:00 Dose: 75 mg Fenofibrate (Tricor) 48 mg PO DAILY [facility] Last Admin: 01/17/18 10:00 Dose: Not Given Heparin Sodium (Porcine) (Heparin) 2,200 units ICA MOWEFR [facility] Last Admin: 01/14/18 17:12 Dose: 2,200 units Heparin Sodium (Porcine) (Heparin) 2,400 units ICV MOWEFR [facility] Last Admin: 01/14/18 17:13 Dose: 2,400 units Hydralazine HCl (Apresoline) 50 mg PO BID [facility] Last Admin: 01/18/18 11:00 Dose: 50 mg Doxycycline Hyclate 100 mg/ (Sodium Chloride) 100 mls @ 100 mls/hr IVPB Q12 [facility] PRN Reason: Protocol Last Admin: 01/18/18 11:56 Dose: 100 mls/hr Cefepime HCl (Maxipime 1gm) 1 gm in 100 mls @ 100 mls/hr IVPB Q24H [facility] PRN Reason: Protocol Stop: 01/21/18 18:01 Last Admin: 01/17/18 18:28 Dose: 100 mls/hr Insulin Detemir (Levemir) 20 unit SC ACBD [facility] Last Admin: 01/18/18 08:35 Dose: 20 unit Insulin Human Lispro (Humalog Med) 0 units SC AC [facility] PRN Reason: Protocol Last Admin: 01/18/18 11:53 Dose: 2 units Lactobacillus Acidophilus (Bacid Acidophilus) 1 cap PO BID [facility] Last Admin: 01/18/18 11:01 Dose: 1 cap Levalbuterol HCl (Xopenex) 0.63 mg IH [id number] [facility] Last Admin: 01/18/18 13:40 Dose: Not Given Lisinopril (Zestril) 20 mg PO QAM [facility] Last Admin: 01/18/18 11:02 Dose: 20 mg Loratadine (Claritin) 10 mg PO DAILY [facility] Last Admin: 01/18/18 11:02 Dose: 10 mg Metoclopramide HCl (Reglan) 5 mg IVP ACHS [facility] Last Admin: 01/18/18 11:52 Dose: 5 mg Metolazone (Zaroxolyn) 10 mg PO BID [facility] Last Admin: 01/18/18 11:01 Dose: 10 mg Metoprolol Tartrate (Lopressor) 50 mg PO BRKDIN [facility] Last Admin: 01/18/18 08:46 Dose: 50 mg Ondansetron HCl (Zofran Inj) 4 mg IVP Q4H PRN PRN Reason: Nausea/Vomiting Last Admin: 01/14/18 21:02 Dose: 4 mg Pantoprazole Sodium (Protonix Ec Tab) 40 mg PO 0600,1600 [facility] Last Admin: 01/18/18 05:51 Dose: 40 mg Pregabalin (Lyrica) 50 mg PO BID [facility] Last Admin: 01/18/18 11:03 Dose: 50 mg Sevelamer HCl (Renagel) 2,400 mg PO ACTID [facility] Last Admin: 01/18/18 11:00 Dose: 2,400 mg Spironolactone (Aldactone) 25 mg PO BID [facility] Last Admin: 01/18/18 11:01 Dose: 25 mg Torsemide (Demadex) 100 mg PO BID [facility] Last Admin: 01/18/18 10:59 Dose: 100 mg - Labs Labs: 01/18/18 08:00 01/18/18 08:00 Attending/Attestation - Attestation I have personally seen and examined this patient.: Yes I have fully participated in the care of the patient.: Yes I have reviewed all pertinent clinical information, including history, physical exam and plan: Yes Notes (Text): Please see/read my dictated notes.
--- NOTE | 2018-01-17 13:28 | PN ---
DATE: 01/17/2018 SUBJECTIVE: The patient is seen in dialysis. She is sitting on a dialysis chair comfortably. She denies any further nausea, vomiting, abdominal pain or diarrhea. OBJECTIVE: VITAL SIGNS: Reveal temperature of 98.5, blood pressure 135/65, heart rate 77. HEENT: Reveal sclerae to be white. Conjunctivae pink. NECK: Supple. CHEST: Reveal lungs to be clear. HEART: Exam reveals regular rate and rhythm. ABDOMEN: Obese, soft, nontender. She does have AV fistula in her left arm. DATA: Laboratory data reveal hemoglobin 8.4.. No new chemistries are available. IMPRESSION: 1. Probable gastroenteritis with nausea, vomiting and diarrhea, which have all resolved. 2. Anemia, most likely anemia of chronic disease. CT scan of the abdomen and pelvis did not show any acute changes. RECOMMENDATIONS: The patient is stable from a GI standpoint. I have informed the patient that she should undergo an elective endoscopy or colonoscopy as an outpatient as workup for her anemia. She is agreeable. Sunil Pedraza MD
[2018-01-17 16:39] LABS: URINE 24 HOUR SODIUM 28.4 meq/24HR (43-217)
[2018-01-17] MEDS: Cefepime 1gm in NS 100ml 1 GM/100 ML BAG IVPB SCH (18:28)
--- NOTE | 2018-01-17 19:33 | CP.PCM.PN ---
Subjective - Date & Time of Evaluation Date of Evaluation: 01/17/18 Time of Evaluation: 12:00 - Subjective Subjective: Patient reports sob improved; no nausea/vomiting; tolerating diet; reports ambulating; Objective - Vital Signs/Intake and Output Vital Signs (last 24 hours): Temp Pulse Resp BP Pulse Ox 97.6 F 82 20 128/72 99 01/17/18 12:43 01/17/18 18:24 01/17/18 06:00 01/17/18 18:24 01/17/18 06:00 - Medications Medications: Current Medications Acetaminophen (Tylenol 325mg Tab) 650 mg PO Q4 PRN PRN Reason: Fever >100.4 F Last Admin: 01/17/18 12:43 Dose: 650 mg Acetaminophen (Tylenol 650 Mg Supp) 650 mg RC Q4H PRN PRN Reason: Fever >100.4 F Ascorbic Acid (Vitamin C 500 Mg Tab) 500 mg PO DAILY [facility] Last Admin: 01/17/18 10:53 Dose: Not Given Aspirin (Ecotrin) 81 mg PO DAILY [facility] Last Admin: 01/17/18 10:00 Dose: Not Given Atorvastatin Calcium (Lipitor) 20 mg PO HS [facility] Last Admin: 01/16/18 22:34 Dose: 20 mg Clonidine HCl (Catapres) 0.1 mg PO Q8H PRN PRN Reason: Systolic Blood Pressure Clonidine HCl (Catapres) 0.1 mg PO BID [facility] Last Admin: 01/17/18 18:28 Dose: 0.1 mg Clopidogrel Bisulfate (Plavix) 75 mg PO QAM [facility] Last Admin: 01/17/18 10:00 Dose: Not Given Fenofibrate (Tricor) 48 mg PO DAILY [facility] Last Admin: 01/17/18 10:00 Dose: Not Given Heparin Sodium (Porcine) (Heparin) 2,200 [facility] Last Admin: 01/14/18 17:12 Dose: 2,200 units Heparin Sodium (Porcine) (Heparin) 2,400 units ICV MOWEFR [facility] Last Admin: 01/14/18 17:13 Dose: 2,400 units Hydralazine HCl (Apresoline) 50 mg PO BID [facility] Last Admin: 01/17/18 18:24 Dose: 50 mg Doxycycline Hyclate 100 mg/ (Sodium Chloride) 100 mls @ 100 mls/hr IVPB Q12 [facility] PRN Reason: Protocol Last Admin: 01/17/18 17:52 Dose: Not Given Cefepime HCl (Maxipime 1gm) 1 gm in 100 mls @ 100 mls/hr IVPB Q24H [facility] PRN Reason: Protocol Stop: 01/21/18 18:01 Last Admin: 01/17/18 18:28 Dose: 100 mls/hr Insulin Detemir (Levemir) 20 unit SC ACBD [facility] Last Admin: 01/17/18 18:27 Dose: 20 unit Insulin Human Lispro (Humalog Med) 0 units SC AC [facility] PRN Reason: Protocol Last Admin: 01/17/18 18:27 Dose: 3 units Lactobacillus Acidophilus (Bacid Acidophilus) 1 cap PO BID [facility] Last Admin: 01/17/18 18:28 Dose: 1 cap Levalbuterol HCl (Xopenex) 0.63 mg IH [id number] [facility] Last Admin: 01/17/18 13:26 Dose: Not Given Lisinopril (Zestril) 20 mg PO QAM [facility] Last Admin: 01/17/18 10:00 Dose: Not Given Loratadine (Claritin) 10 mg PO DAILY [facility] Last Admin: 01/17/18 10:00 Dose: Not Given Metoclopramide HCl (Reglan) 5 mg IVP ACHS [facility] Last Admin: 01/17/18 18:22 Dose: 5 mg Metolazone (Zaroxolyn) 10 mg PO BID [facility] Last Admin: 01/17/18 18:25 Dose: 10 mg Metoprolol Tartrate (Lopressor) 50 mg PO BRKDIN [facility] Last Admin: 01/17/18 18:28 Dose: 50 mg Ondansetron HCl (Zofran Inj) 4 mg IVP Q4H PRN PRN Reason: Nausea/Vomiting Last Admin: 01/14/18 21:02 Dose: 4 mg Pantoprazole Sodium (Protonix Ec Tab) 40 mg PO 0600,1600 [facility] Last Admin: 01/17/18 18:28 Dose: 40 mg Pregabalin (Lyrica) 50 mg PO BID [facility] Last Admin: 01/17/18 18:29 Dose: Not Given Sevelamer HCl (Renagel) 2,400 mg PO ACTID [facility] Last Admin: 01/17/18 18:56 Dose: 2,400 mg Spironolactone (Aldactone) 25 mg PO BID [facility] Last Admin: 01/17/18 18:24 Dose: 25 mg Torsemide (Demadex) 100 mg PO BID [facility] Last Admin: 01/17/18 18:26 Dose: 100 mg - Labs Labs: 01/17/18 11:05 01/17/18 11:05 - Constitutional Appears: Non-toxic, No Acute Distress - Eye Exam Eye Exam: Normal appearance. absent: Scleral icterus - ENT Exam ENT Exam: Mucous Membranes Moist - Respiratory Exam Respiratory Exam: Clear to Ausculation Bilateral. absent: Respiratory Distress - Cardiovascular Exam Cardiovascular Exam: RRR, +S1, +S2 - GI/Abdominal Exam GI & Abdominal Exam: Soft. absent: Distended, Tenderness - Extremities Exam Additional comments: minimal lower leg edema; - Neurological Exam Neurological Exam: Alert, Awake - Psychiatric Exam Psychiatric exam: Normal Affect, Normal Mood. absent: Agitated - Skin Skin Exam: Warm. absent: Cyanosis Assessment and Plan (1) ESRD (end stage renal disease) on dialysis Assessment & Plan: Stable electrolyte status but it has become apparent that patient has lost much of her residual renal function with low urine output on 24 hr collection; if patient remains admitted tomorrow, will consider extra UF only treatment to bring her down to her dry weight; Status: Chronic (2) Congestive heart failure Assessment & Plan: Acute decompensated systolic CHF; symptoms improved with UF on HD; see above, will continue diuretics for now; Status: Acute (3) Pneumonia Assessment & Plan: Being treated for HCAP; cefepime correctly dosed for HD, no renal dose adjustment needed for doxycycline; Status: Acute (4) Anemia in ESRD (end-stage renal disease) Assessment & Plan: Worsened due to acute illness; will continue with IV iron loading and increased aranesp dose (100 mcg weekly); Status: Chronic (5) Hypertensive CKD, ESRD on dialysis Assessment & Plan: BP much better controlled now that volume status improved; clonidine already decreased to 0.1 mg bid, continue same along with rest of meds for now; Status: Chronic (6) Chronic kidney disease-mineral and bone disorder Assessment & Plan: Repeat PTH 268, around goal for ESRD; continue with hectorol 1 mcg on HD; continue sevelamer 3 tabs w/ meals; Status: Chronic
[2018-01-18] MEDS: Levalbuterol 0.63 MG/3 ML Inhal Soln UD IH SCH ×4 (01:42→21:30)
--- NOTE | 2018-01-18 03:21 | PN ---
DATE: 01/17/2018 SUBJECTIVE: The patient is seen in dialysis unit and then patient was later on seen in room 567, bed 2. Patient was seen in recliner in dialysis unit. At that time, patient expressed her wishes to sign herself out against medical advice today, against which I have strictly advised the patient that patient should not sign out against medical advise because the patient's treatment is still active and ongoing. Overnight nurse's notes were reviewed. No adverse events were documented except the patient refusing lab work, refusing IV antibiotics, refusing Reglan and medications. Patient refused SCDs and SANJAY stockings. PHYSICAL EXAMINATION: VITAL SIGNS: T-max 98.5 to 97.6; heart rate 77, 82; blood pressure 135/65, 119/73; respiration 20, O2 sat 99%. HEENT: Head examination, normocephalic and atraumatic. HEENT examination shows pale conjunctivae. Anicteric sclerae. No oropharyngeal lesion. NECK: No neck rigidity. CHEST: Shows positive right upper chest Alma catheter. Positive median sternotomy surgical scar. LUNGS: Show questionable decreased breath sound noted at the bases, left more than the right. CARDIOVASCULAR: Shows S1, S2, regular rhythm. Positive systolic murmur at left sternal border, right second intercostal space, left second intercostal space. ABDOMEN: Soft. Completely nontender. No guarding. No rigidity. No rebound tenderness. GENITALIA: Female. RECTAL: Examination is deferred. EXTREMITIES: Show positive left upper extremity AV fistula, positive thrill. MUSCULOSKELETAL: Shows elevated body mass index of 37. NEUROLOGIC: The patient is alert, awake, oriented x3. Cranial nerves II through XII intact. Gait examination is not tested. VASCULAR: Palpable pulses. DIAGNOSTICS: On 01/17/2018, WBC 4.9, hemoglobin and hematocrit 8.4 and 25, platelets 168, granulocytes 75. Sodium 139, potassium 3.9, chloride 98, CO2 of 24, anion gap 22, BUN 58, creatinine 7.7. GFR is 7. Fingerstick blood sugar 173, 180, 219, 247, 227. Calcium 8.8, phosphorus 3.7, hemoglobin A1c 11.7. LFTs are normal. Patient's H. Pylori BreathTek is non-detected. Hepatitis A, B, C and HIV is negative. Blood cultures, no growth. The patient was seen by Nephrology, Gastroenterology and Cardiology, their recommendations were noted. IMPRESSION AND PLAN: 1. Abdominal pain, etiology unclear, questionable acute gastroenteritis versus acute exacerbation of diabetic gastroparesis. 2. Uncontrolled insulin-requiring diabetes mellitus with hyperglycemia and hemoglobin A1c of greater than 11.7. 3. Hypertension. 4. Low grade fever. 5. Transient tachycardia. 6. Morbid obesity with elevated body mass index of 37.3. 7. Leukopenia. 8. Anemia of chronic disease with normocytic anemia. 9. Granulocytosis. 10. Questionable increased anion gap metabolic acidosis. 11. Acute on chronic systolic congestive heart failure with dilated ischemic cardiomyopathy. 12. Hyperprocalcitoninemia. 13. Secondary hyperparathyroidism with elevated PTH of greater than 270. 14. Hypokalemia. 15. Hypovitaminosis D. 16. Elevated fructosamine level of greater than 540. 17. Hyperphosphatemia. 18. Proteinuria, glycosuria, microscopic hematuria, bacteriuria. 19. Nonspecific intraventricular conduction block. 20. Questionable lateral ischemia. 21. End-stage renal disease, hemodialysis dependent three times a week via the right upper chest Alma catheter. 22. Acute decompensated systolic congestive heart failure and possible dilated ischemic cardiomyopathy. 23. Bilateral multilobar healthcare-associated pneumonia. 24. Anemia of chronic kidney disease. 25. Hypertensive chronic kidney disease with end-stage renal disease. 26. Volume and fluid overload. 27. History of myocardial infarction, coronary artery disease, coronary artery bypass graft and history of angioplasty. 28. Poor compliance. 29. Dyslipidemia. 30. Diabetic neuropathy. 31. Sepsis with right lower lobe healthcare-associated pneumonia. 1. Abdominal pain, etiology undetermined. 2. Most likely diabetic gastroparesis, symptomatic with symptoms of abdominal pain. 3. Insulin-requiring diabetes mellitus. 4. End-stage renal disease, hemodialysis requiring 3 times a week. 5. Hyperprocalcitoninemia. 6. Low-grade fever. 7. History of coronary artery disease, coronary artery bypass graft, history of angioplasty, stent placement and myocardial infarction. 8. History of hypertension, hyperlipidemia. 9. History of right heel osteomyelitis. 10. Sepsis with right lower lobe, right middle lobe pneumonia. 11. Poor compliance. 12. Symptomatic diabetic gastroparesis with symptoms of abdominal pain, nausea, vomiting. 13. Volume overload and fluid overload with pulmonary vascular congestion and possible systolic congestive heart failure. 14. End-stage renal disease, hemodialysis dependent. 15. Acute decompensated systolic congestive heart failure. 16. Healthcare-associated pneumonia. 17. Anemia of chronic kidney disease. 18. Hypertensive chronic kidney disease and end-stage renal disease. 19. Sepsis with right lower lobe, right middle lobe pneumonia. 20. Hypertensive cardiovascular disease with nonspecific intraventricular conduction block with left axis deviation and questionable coronary ischemia. 21. Hypertension. 22. Leukopenia. 24. Granulocytosis. 25. Uncontrolled insulin-requiring diabetes mellitus with hemoglobin A1c of 11.7 and fructose level of 546. 26. Secondary hyperparathyroidism with hyperphosphatemia. 27. Hypovitaminosis D. 28. Acute recurrent systolic congestive heart failure with elevated BNP. 29. Proteinuria with microscopic hematuria and bacteriuria. 1. Abdominal pain with nausea, vomiting. Etiology undetermined versus questionable and possible diabetic gastroparesis. 2. Severe noncompliance. 3. Hypertension. 4. Morbid obesity with elevated body mass index of 38. 5. Normocytic anemia with granulocytosis. 6. Questionable increased anion gap metabolic acidosis. 7. End-stage renal disease, hemodialysis dependent. 8. Hyperglycemia. 9. Uncontrolled diabetes mellitus. 10. Possible systolic congestive heart failure with elevated BNP. 11. Left upper extremity arteriovenous fistula placement. 12. End-stage renal disease, hemodialysis dependent three times a week via the right upper chest U[place]all catheter. 13. History of myocardial infarction, history of coronary artery disease, history of coronary artery bypass graft, history of angioplasty and stent placement. 14. Possible ischemic dilated cardiomyopathy. 15. Proteinuria. 16. Microscopic hematuria and bacteriuria. 17. Oxygen-requiring chronic obstructive pulmonary disease. 18. Acute exacerbation of systolic congestive heart failure. 19. Possible decompensated systolic congestive heart failure with elevated BNP. 20. Anemia of chronic kidney disease. 21. Hypertensive end-stage renal disease. 22. Hypertension. 23. Insulin-requiring diabetes mellitus. 24. Hyperlipidemia. 25. Diabetic neuropathy. 26. Diabetic gastroparesis. 1. Abdominal pain, etiology unclear versus diabetic gastroparesis with symptoms of nausea, vomiting. 2. Atypical chest pain. 3. Morbid obesity with elevated body mass index. 4. Low-grade fever. 5. Tachycardia. 6. Hypertension. 7. Normocytic anemia. 8. Granulocytosis. 9. Increased anion gap metabolic acidosis. 10. End-stage renal disease, hemodialysis dependent. 11. Uncontrolled diabetes mellitus with hyperglycemia. 12. Proteinuria and bacteriuria and microscopic hematuria. 13. Cardiomegaly. 14. Pulmonary vascular congestion. 15. Right lower lobe, right middle lobe atelectasis versus pneumonia and infiltrate. 16. Splenomegaly. 17. Left axis deviation with intraventricular conduction block and lateral coronary ischemia. 18. Status post right upper chest dialysis catheter placement. 19. Possible acute exacerbation of systolic congestive heart failure. 20. Probable diabetic gastroparesis versus gastritis. 21. Uncontrolled diabetes. Plan at this time, patient has been advised against signing out against medical advise. Patient has been ordered serial labs. Patient was ordered stool C. Diff, which is still not available. CURRENT CONSULTATION: 1. Nephrology. 2. Gastroenterology. 3. Hematology. Their evaluation is pending. 4. Infectious Disease. 5. Cardiology. The patient's case is referred for diabetic education, TCU evaluation. CURRENT MEDICATIONS: 1. Aldactone 25 mg twice a day. 2. Hydralazine 50 mg twice a day. 3. Bacid 1 capsule twice a day. 4. Clonidine 0.1 mg every 8 hours p.r.n. and clonidine 0.1 mg twice a day. 5. Claritin 10 mg daily. 6. Demadex 100 mg twice a day. 7. Doxycycline 100 mg IV every 12 hours. 8. Ecotrin 81 mg daily. 9. Humalog medium dose sliding scale coverage a.c. 10. Levemir 20 units with breakfast and dinner, which was increased yesterday. Patient's blood glucose will be monitored to control hyperglycemia. 11. Patient is on Lipitor 20 mg daily. 12. Lopressor 50 mg twice a day. 13. Lyrica 50 mg twice a day. 14. Maxipime 1 g IV daily. 15. Plavix 75 mg daily. 16. Protonix 40 mg daily. 17. Reglan 5 mg IV a.c. and at bedtime. 18. Renagel 2400 mg with meals three times a day. 19. TriCor 48 mg daily. 20. Tylenol p.r.n. for fever. 21. Patient received a dose of IV Venofer 100 mg IV x1 dose by Nephrology. 22. Vitamin C 500 daily. 23. Xopenex nebulizer 0.63 mg every 6 hours. 24. Zaroxolyn 10 mg twice a day. 25. Zestril 20 mg daily. 26. Zofran 4 mg IV every 4 hours p.r.n. The patient is on chest PT, oxygen 2 liters. Patient's echo with Doppler is still pending, which was ordered on 01/17/2018, today. The patient is on renal diet. Patient has been ordered out of bed. SANJAY stockings, SCDs, physical therapy, occupational therapy ordered. Patient was seen by the physical therapist today. Patient declined physical therapy today. Patient was seen by physical therapist on 01/15/2018. Their recommendations were TCU. At present, patient will be continued on above therapeutic intervention. Patient's further management will be dependent upon the patient's clinical condition, hemodynamic status and as per the patient's response to therapeutic intervention and as per the patient's diagnostic test results and as per recommendation by all the physician involved in the care of the patient. Patient's overall prognosis is guarded to poor because of decompensated, patient's clinical status and multiple comorbidities, which has been explained to the patient at length on almost daily basis and the patient has also been explained about all the consequences related to her medical condition. Dictated and electronically signed, not read. Moses Lira MD MICHAEL
[2018-01-18] MEDS: Pantoprazole 40 mg EC Tab PO SCH ×2 (05:51→18:11)
[2018-01-18 08:20] LABS: BASO # 0.02 K/mm3 (0.0-2.0); BASO % 0.4 % (0.0-3.0); EOS # 0.2 (0.0-0.7); EOS % 3.4 % (1.5-5.0); GRAN # 4.06 (1.4-6.5); GRAN % 72.2 % (50.0-68.0); HEMOGLOBIN 9.3 g/dL (12.0-16.0); LYMPH # 0.9 (1.2-3.4); LYMPH % 16.2 % (22.0-35.0); MEAN CELL VOLUME 95.8 fl (80.0-105.0); MEAN CORPUSCULAR HEMOGLOBIN 32.3 pg (25.0-35.0); MEAN CORPUSCULAR HGB CONC 33.7 g/dl (31.0-37.0); MEAN PLATELET VOLUME 9.6 fl (7.0-11.0); MONO # 0.4 (0.1-0.6); MONO % 7.8 % (1.0-6.0); RBC 2.88 10^6/uL (3.5-6.1); RED CELL DISTRIBUTION WIDTH 13.6 % (11.5-14.5); WHITE BLOOD COUNT 5.6 10^3/ul (4.5-11.0)
[2018-01-18 08:34] LABS: ALB/GLOB RATIO 1.1 (1.1-1.8); ALBUMIN 3.7 g/dL (3.0-4.8); BILIRUBIN,DIRECT 0.3 mg/dL (0.0-0.4)
[2018-01-18] MEDS: Insulin Detemir 100 units/ml Vial (Levemir) SC SCH ×2 (08:35→18:13)
[2018-01-18] MEDS: Insulin Lispro (humaLOG) MEDIUM Coverage SC SCH ×3 (08:36→18:13)
[2018-01-18 08:40] LABS: BARBITURATES, UR NEGATIVE (NEGATIVE); BENZODIAZEPINES, UR NEGATIVE (NEGATIVE); OPIATES, UR NEGATIVE (NEGATIVE); PHENCYCLIDINE, UR NEGATIVE (NEGATIVE)
[2018-01-18] MEDS: Lactobacillus Acidophilus 500 MU Cap PO SCH ×2 (11:01→18:10)
[2018-01-18] MEDS: metOLazone 5 MG TAB PO SCH ×2 (11:01→18:11)
--- NOTE | 2018-01-18 11:41 | RAD ---
HISTORY: COMPARISON: 01/14/2018. TECHNIQUE: Chest PA and lateral FINDINGS: LINES AND TUBES: The right-sided dialysis catheter terminates in the right atrium. LUNG AND PLEURA: The lungs are well inflated. There is linear scarring in the right lung base. No focal consolidation. HEART AND MEDIASTINUM: There is mild cardiomegaly. Status post CABG with The hilar and mediastinal contours are within normal limits. SKELETAL STRUCTURES: The bony structures are within normal limits for the patient's age. VISUALIZED UPPER ABDOMEN: Normal. OTHER FINDINGS: None. IMPRESSION: No acute findings.
--- NOTE | 2018-01-18 13:27 | PN ---
DATE: 01/18/2018 CARDIOLOGY FOLLOWUP SUBJECTIVE: The patient is seen in . Her breathing is unchanged. PHYSICAL EXAMINATION: VITAL SIGNS: Blood pressure 118/53, heart rates in the 90s. Physical exam is unchanged. LABORATORY DATA: Hemoglobin is 9.3. Chemistries: BUN and creatinine 37 and 5.6. Echocardiogram reveals an EF of 40% to 45%, which is unchanged from her previous. IMPRESSION: 1. Congestive heart failure, which is better. 2. End-stage renal disease. 3. Ischemic dilated cardiomyopathy. 4. Diabetes mellitus. 5. Coronary artery disease. PLAN: Given these findings, the patient is clinically unchanged from her previous. We will continue dialysis. Austin Markham MD
--- NOTE | 2018-01-18 13:30 | CP.PCM.PN ---
<Mara Brennan - Last Filed: 01/18/18 13:40> Subjective - Date & Time of Evaluation Date of Evaluation: 01/18/18 Time of Evaluation: 13:27 - Subjective Subjective: Medicine Progress Note - Dr Lira Service: Patient seen and examined at bedside. Per nursing no acute events overnight. Patient is doing well, states that breathing has improved. She tolerated dialysis well yesterday, offers no complaints at this time. Patient wishes to go home. Denies headaches, dizziness, cp, palpitations, sob, abdominal pain, urinary symptoms. Objective - Vital Signs/Intake and Output Vital Signs (last 24 hours): Temp Pulse Resp BP Pulse Ox 99 F 99 H 20 104/65 100 01/18/18 06:00 01/18/18 08:46 01/18/18 06:00 01/18/18 11:00 01/18/18 06:00 Intake and Output: 01/18/18 01/18/18 06:59 18:59 Intake Total 240 Balance 240 - Medications Medications: Current Medications Acetaminophen (Tylenol 325mg Tab) 650 mg PO Q4 PRN PRN Reason: Fever >100.4 F Last Admin: 01/17/18 20:40 Dose: 650 mg Acetaminophen (Tylenol 650 Mg Supp) 650 mg RC Q4H PRN PRN Reason: Fever >100.4 F Ascorbic Acid (Vitamin C 500 Mg Tab) 500 mg PO DAILY COUNT INCLUDES THE [facility] Last Admin: 01/18/18 11:02 Dose: 500 mg Aspirin (Ecotrin) 81 mg PO DAILY COUNT INCLUDES THE [facility] Last Admin: 01/18/18 11:00 Dose: 81 mg Atorvastatin Calcium (Lipitor) 20 mg PO HS COUNT INCLUDES THE [facility] Last Admin: 01/17/18 21:00 Dose: 20 mg Clonidine HCl (Catapres) 0.1 mg PO Q8H PRN PRN Reason: Systolic Blood Pressure Clonidine HCl (Catapres) 0.1 mg PO BID COUNT INCLUDES THE [facility] Last Admin: 01/18/18 11:00 Dose: 0.1 mg Clopidogrel Bisulfate (Plavix) 75 mg PO QAM COUNT INCLUDES THE [facility] Last Admin: 01/18/18 11:00 Dose: 75 mg Fenofibrate (Tricor) 48 mg PO DAILY COUNT INCLUDES THE [facility] Last Admin: 01/17/18 10:00 Dose: Not Given Heparin Sodium (Porcine) (Heparin) 2,200 units ICA MOWEFR COUNT INCLUDES THE [facility] Last Admin: 01/14/18 17:12 Dose: 2,200 units Heparin Sodium (Porcine) (Heparin) 2,400 units ICV MOWEFR COUNT INCLUDES THE [facility] Last Admin: 01/14/18 17:13 Dose: 2,400 units Hydralazine HCl (Apresoline) 50 mg PO BID COUNT INCLUDES THE [facility] Last Admin: 01/18/18 11:00 Dose: 50 mg Doxycycline Hyclate 100 mg/ (Sodium Chloride) 100 mls @ 100 mls/hr IVPB Q12 SELWYN PRN Reason: Protocol Last Admin: 01/18/18 11:56 Dose: 100 mls/hr Cefepime HCl (Maxipime 1gm) 1 gm in 100 mls @ 100 mls/hr IVPB Q24H COUNT INCLUDES THE [facility] PRN Reason: Protocol Stop: 01/21/18 18:01 Last Admin: 01/17/18 18:28 Dose: 100 mls/hr Insulin Detemir (Levemir) [facility] Last Admin: 01/18/18 08:35 Dose: 20 unit Insulin Human Lispro (Humalog Med) 0 units SC AC COUNT INCLUDES THE [facility] PRN Reason: Protocol Last Admin: 01/18/18 11:53 Dose: 2 units Lactobacillus Acidophilus (Bacid Acidophilus) 1 cap PO BID COUNT INCLUDES THE [facility] Last Admin: 01/18/18 11:01 Dose: 1 cap Levalbuterol HCl (Xopenex) 0.63 mg IH [id number] COUNT INCLUDES THE [facility] Last Admin: 01/18/18 07:41 Dose: Not Given Lisinopril (Zestril) 20 mg PO QAM COUNT INCLUDES THE [facility] Last Admin: 01/18/18 11:02 Dose: 20 mg Loratadine (Claritin) 10 mg PO DAILY COUNT INCLUDES THE [facility] Last Admin: 01/18/18 11:02 Dose: 10 mg Metoclopramide HCl (Reglan) 5 mg IVP ACHS COUNT INCLUDES THE [facility] Last Admin: 01/18/18 11:52 Dose: 5 mg Metolazone (Zaroxolyn) 10 mg PO BID COUNT INCLUDES THE [facility] Last Admin: 01/18/18 11:01 Dose: 10 mg Metoprolol Tartrate (Lopressor) 50 mg PO BRKDIN COUNT INCLUDES THE [facility] Last Admin: 01/18/18 08:46 Dose: 50 mg Ondansetron HCl (Zofran Inj) 4 mg IVP Q4H PRN PRN Reason: Nausea/Vomiting Last Admin: 01/14/18 21:02 Dose: 4 mg Pantoprazole Sodium (Protonix Ec Tab) 40 mg PO 0600,1600 COUNT INCLUDES THE [facility] Last Admin: 01/18/18 05:51 Dose: 40 mg Pregabalin (Lyrica) 50 mg PO BID COUNT INCLUDES THE [facility] Last Admin: 01/18/18 11:03 Dose: 50 mg Sevelamer HCl (Renagel) 2,400 mg PO ACTID COUNT INCLUDES THE [facility] Last Admin: 01/18/18 11:00 Dose: 2,400 mg Spironolactone (Aldactone) 25 mg PO BID COUNT INCLUDES THE [facility] Last Admin: 01/18/18 11:01 Dose: 25 mg Torsemide (Demadex) 100 mg PO BID COUNT INCLUDES THE [facility] Last Admin: 01/18/18 10:59 Dose: 100 mg - Labs Labs: 01/18/18 08:00 01/18/18 08:00 Assessment and Plan - Assessment and Plan (Free Text) Assessment: Patient is a 47 y/o with PMHx of morbidly obese BMI 48, htn, hld, COPD on 2 liters nasal cannula, IDDM, ESRD ( HD M, W,F), CAD s/p CABG and stents, systolic CHF presenting with lower quadrant abdominal pain for 1 day, along with nausea and vomiting. Plan: 1) Abdominal pain along with nausea and vomiting likely diabetic gastroparesis ( resolved) - CT abdomen and pelvis with possible pneumonia - No acute findings on CT - Patient had gap of 17 and glucose of 456 on admission, s/p stat dose of 10 units insulin - UA with no ketones - Diabetes control as stated below - Reglan and zofran prn for nausea/vomiting 2) Worsening dyspnea due to CHF exacerbation, RLL/RML pneumonia - Patient also has underlying copd, on home oxygen - will resume home oxygen - + elevated pro bnp on admission, troponin at baseline - No acute ischemic changes on EKG - Chest x-ray with vascular congestion and cardiomegaly - CT chest with lower lobe infiltration and atelectasis. - Antibiotics: Cefepime and doxycycline; continue Bacid 1 capsule BID - Procal 0.66, Urine legionella negative - Continue Chest PT, ISS use, 2L continuous humidified oxygen - Continue torsemide, aldactone and metolazone as per nephro - Echocardiogram showed EF 40-45% which is unchanged from prior study - CXR PA/LA showed no acute findings - Cardiology consulted - ID consulted 3) Acute on chronic anemia - Patient for possible renal transplant, will hold transfusing at this time - Recieved IV Venofer x 1 dose - No signs of active bleeding noted - On aranesp, continue ascorbic acid 4) Uncontrolled DM - Will continue with long acting and basal insulin - Continue Moderate dose ISS - Continue Levemir 20 units ACBD - Renal and carb controlled diet - hgb a1c 11.7 - Diabetic education 5) ESRD- on Hemodialysis MWF - Nephro on consult, help appreciated - Continue renagel - Patient is dialysis this morning 6) Vitamin D Deficiency - Ergocalciferol 1 tab PO Q7D 7) H/O HLD- on lipitor and tricor 8) H/O HTN- on clonidine (on hold), hydralazine, lisinopril 9) CAD s/o CABG and stents- on plavix, asa, and lopressor. 10) Peripheral neuropathy- continue with Lyrica 11) DVT and gi prophylaxis: Protonix, heparin sc/VTE device. Plan discussed with Dr Lira. Mara Brennan DO PGY-1 <[facility] - Last Filed: 01/18/18 17:23> Objective - Vital Signs/Intake and Output Vital Signs (last 24 hours): Temp Pulse Resp BP Pulse Ox 97.7 F 74 20 107/59 L 99 01/18/18 14:00 01/18/18 14:00 01/18/18 14:00 01/18/18 14:00 01/18/18 14:00 Intake and Output: 01/18/18 01/18/18 06:59 18:59 Intake Total 240 540 Balance 240 540 - Medications Medications: Current Medications Acetaminophen (Tylenol 325mg Tab) 650 mg PO Q4 PRN PRN Reason: Fever >100.4 F Last Admin: 01/17/18 20:40 Dose: 650 mg Acetaminophen (Tylenol 650 Mg Supp) 650 mg RC Q4H PRN PRN Reason: Fever >100.4 F Ascorbic Acid (Vitamin C 500 Mg Tab) 500 mg PO DAILY COUNT INCLUDES THE [facility] Last Admin: 01/18/18 11:02 Dose: 500 mg Aspirin (Ecotrin) 81 mg PO DAILY COUNT INCLUDES THE [facility] Last Admin: 01/18/18 11:00 Dose: 81 mg Atorvastatin Calcium (Lipitor) 20 mg PO HS COUNT INCLUDES THE [facility] Last Admin: 01/17/18 21:00 Dose: 20 mg Clonidine HCl (Catapres) 0.1 mg PO Q8H PRN PRN Reason: Systolic Blood Pressure Clonidine HCl (Catapres) 0.1 mg PO BID COUNT INCLUDES THE [facility] Last Admin: 01/18/18 11:00 Dose: 0.1 mg Clopidogrel Bisulfate (Plavix) 75 mg PO QAM COUNT INCLUDES THE [facility] Last Admin: 01/18/18 11:00 Dose: 75 mg Fenofibrate (Tricor) 48 mg PO DAILY COUNT INCLUDES THE [facility] Last Admin: 01/17/18 10:00 Dose: Not Given Heparin Sodium (Porcine) (Heparin) 2,200 units ICA [facility] Last Admin: 01/14/18 17:12 Dose: 2,200 units Heparin Sodium (Porcine) (Heparin) 2,400 units ICV [facility] Last Admin: 01/14/18 17:13 Dose: 2,400 units Hydralazine HCl (Apresoline) 50 mg PO BID COUNT INCLUDES THE [facility] Last Admin: 01/18/18 11:00 Dose: 50 mg Doxycycline Hyclate 100 mg/ (Sodium Chloride) 100 mls @ 100 mls/hr IVPB Q12 COUNT INCLUDES THE [facility] PRN Reason: Protocol Last Admin: 01/18/18 11:56 Dose: 100 mls/hr Cefepime HCl (Maxipime 1gm) 1 gm in 100 mls @ 100 mls/hr IVPB Q24H COUNT INCLUDES THE [facility] PRN Reason: Protocol Stop: 01/21/18 18:01 Last Admin: 01/17/18 18:28 Dose: 100 mls/hr Insulin Detemir (Levemir) [facility] Last Admin: 01/18/18 08:35 Dose: 20 unit Insulin Human Lispro (Humalog Med) 0 units SC AC COUNT INCLUDES THE [facility] PRN Reason: Protocol Last Admin: 01/18/18 11:53 Dose: 2 units Lactobacillus Acidophilus (Bacid Acidophilus) 1 cap PO BID COUNT INCLUDES THE [facility] Last Admin: 01/18/18 11:01 Dose: 1 cap Levalbuterol HCl (Xopenex) 0.63 mg IH [id number] COUNT INCLUDES THE [facility] Last Admin: 01/18/18 13:40 Dose: Not Given Lisinopril (Zestril) 20 mg PO QAM COUNT INCLUDES THE [facility] Last Admin: 01/18/18 11:02 Dose: 20 mg Loratadine (Claritin) 10 mg PO DAILY COUNT INCLUDES THE [facility] Last Admin: 01/18/18 11:02 Dose: 10 mg Metoclopramide HCl (Reglan) 5 mg IVP ACHS COUNT INCLUDES THE [facility] Last Admin: 01/18/18 11:52 Dose: 5 mg Metolazone (Zaroxolyn) 10 mg PO BID COUNT INCLUDES THE [facility] Last Admin: 01/18/18 11:01 Dose: 10 mg Metoprolol Tartrate (Lopressor) 50 mg PO BRKDIN COUNT INCLUDES THE [facility] Last Admin: 01/18/18 08:46 Dose: 50 mg Ondansetron HCl (Zofran Inj) 4 mg IVP Q4H PRN PRN Reason: Nausea/Vomiting Last Admin: 01/14/18 21:02 Dose: 4 mg Pantoprazole Sodium (Protonix Ec Tab) 40 mg PO 0600,1600 COUNT INCLUDES THE [facility] Last Admin: 01/18/18 05:51 Dose: 40 mg Pregabalin (Lyrica) 50 mg PO BID COUNT INCLUDES THE [facility] Last Admin: 01/18/18 11:03 Dose: 50 mg Sevelamer HCl (Renagel) 2,400 mg PO ACTID COUNT INCLUDES THE [facility] Last Admin: 01/18/18 11:00 Dose: 2,400 mg Spironolactone (Aldactone) 25 mg PO BID COUNT INCLUDES THE [facility] Last Admin: 01/18/18 11:01 Dose: 25 mg Torsemide (Demadex) 100 mg PO BID COUNT INCLUDES THE [facility] Last Admin: 01/18/18 10:59 Dose: 100 mg - Labs Labs: 01/18/18 08:00 01/18/18 08:00 Attending/Attestation - Attestation I have personally seen and examined this patient.: Yes I have fully participated in the care of the patient.: Yes I have reviewed all pertinent clinical information, including history, physical exam and plan: Yes Notes (Text): Please see/read my dictated notes.
--- NOTE | 2018-01-18 16:23 | CP.PCM.PN ---
Subjective - Date & Time of Evaluation Date of Evaluation: 01/18/18 Time of Evaluation: 12:00 - Subjective Subjective: Patient is feeling better, no fevers, improved coughing, improved breathing. Objective - Vital Signs/Intake and Output Vital Signs (last 24 hours): Temp Pulse Resp BP Pulse Ox 98.5 F 77 20 135/65 99 01/17/18 06:00 01/17/18 06:00 01/17/18 06:00 01/17/18 06:00 01/17/18 06:00 Intake and Output: 01/17/18 01/17/18 06:59 18:59 Output Total 200 Balance -200 - Medications Medications: Current Medications Acetaminophen (Tylenol 325mg Tab) 650 mg PO Q4 PRN PRN Reason: Fever >100.4 F Last Admin: 01/15/18 15:07 Dose: 650 mg Acetaminophen (Tylenol 650 Mg Supp) 650 mg RC Q4H PRN PRN Reason: Fever >100.4 F Ascorbic Acid (Vitamin C 500 Mg Tab) 500 mg PO DAILY [facility] Last Admin: 01/16/18 09:52 Dose: 500 mg Aspirin (Ecotrin) 81 mg PO DAILY [facility] Last Admin: 01/16/18 09:53 Dose: 81 mg Atorvastatin Calcium (Lipitor) 20 mg PO HS [facility] Last Admin: 01/16/18 22:34 Dose: 20 mg Clonidine HCl (Catapres) 0.1 mg PO Q8H PRN PRN Reason: Systolic Blood Pressure Clonidine HCl (Catapres) 0.1 mg PO BID [facility] Last Admin: 01/16/18 18:13 Dose: Not Given Clopidogrel [facility] ([facility]ix) [facility] Admin: 01/16/18 09:51 Dose: 75 mg Fenofibrate (Tricor) 48 mg PO DAILY [facility] Last Admin: 01/16/18 09:51 Dose: 48 mg Heparin Sodium (Porcine) (Heparin) 2,200 units [facility] Last Admin: 01/14/18 17:12 Dose: 2,200 units Heparin Sodium (Porcine) (Heparin) 2,[facility] Last Admin: 01/14/18 17:13 Dose: 2,400 units Hydralazine HCl (Apresoline) 50 mg PO BID [facility] Last Admin: 01/16/18 18:12 Dose: 50 mg Doxycycline Hyclate 100 mg/ (Sodium Chloride) 100 mls @ 100 mls/hr IVPB Q12 SELWYN PRN Reason: Protocol Last Admin: 01/17/18 00:59 Dose: Not Given Cefepime HCl (Maxipime 1gm) 1 gm in 100 mls @ 100 mls/hr IVPB Q24H SELWYN PRN Reason: Protocol Stop: 01/21/18 18:01 Last Admin: 01/16/18 18:12 Dose: 100 mls/hr Insulin Detemir (Levemir) 20 unit SC ACBD [facility] Last Admin: 01/17/18 08:49 Dose: 20 unit Insulin Human Lispro (Humalog Med) 0 units SC AC SELWYN PRN Reason: Protocol Last Admin: 01/17/18 08:48 Dose: 1 units Lactobacillus Acidophilus (Bacid Acidophilus) 1 cap PO BID [facility] Last Admin: 01/16/18 18:12 Dose: 1 cap Levalbuterol HCl (Xopenex) 0.63 mg IH [id number] [facility] Last Admin: 01/17/18 06:10 Dose: 0.63 mg Lisinopril (Zestril) 20 mg PO QAM [facility] Last Admin: 01/16/18 09:51 Dose: 20 mg Loratadine (Claritin) 10 mg PO DAILY [facility] Last Admin: 01/16/18 09:52 Dose: 10 mg Metoclopramide HCl (Reglan) 5 mg IVP ACHS [facility] Metolazone (Zaroxolyn) 10 mg PO BID [facility] Last Admin: 01/16/18 18:12 Dose: 10 mg Metoprolol Tartrate (Lopressor) 50 mg PO BRKDIN [facility] Last Admin: 01/17/18 08:48 Dose: 50 mg Ondansetron HCl (Zofran Inj) 4 mg IVP Q4H PRN PRN Reason: Nausea/Vomiting Last Admin: 01/14/18 21:02 Dose: 4 mg Pantoprazole Sodium (Protonix Ec Tab) 40 mg PO 0600,1600 [facility] Last Admin: 01/17/18 06:22 Dose: 40 mg Pregabalin (Lyrica) 50 mg PO BID [facility] Last Admin: 01/16/18 18:15 Dose: Not Given Sevelamer HCl (Renagel) 2,400 mg PO ACTID [facility] Last Admin: 06/04/18 08:50 Dose: Not Given Spironolactone (Aldactone) 25 mg PO BID [facility] Last Admin: 01/16/18 18:12 Dose: 25 mg Torsemide (Demadex) 100 mg PO BID [facility] Last Admin: 01/16/18 18:11 Dose: 100 mg - Labs Labs: 01/16/18 07:00 01/16/18 07:00 - Constitutional Appears: Chronically Ill - Head Exam Head Exam: NORMAL INSPECTION - Neck Exam Neck Exam: absent: Meningismus - Respiratory Exam Respiratory Exam: Decreased Breath Sounds - Cardiovascular Exam Cardiovascular Exam: +S1, +S2 - GI/Abdominal Exam GI & Abdominal Exam: Soft. absent: Tenderness Assessment and Plan - Assessment and Plan (Free Text) Plan: Assessment right sided HCAP, slowly improving history of right foot skin and skin structure infection with Klebsiella and E. faecalis history of drug-related maculopapular rash, probably related to morphine HTN DM CAD S/P CABG chronic renal failure chronic foot ulcer on the left dyslipidemia COPD morbid obesity with BMI 48 chronic renal failure Plan continue intermittent Vancomycin and Cefepime day 3 to complete 4-7 days of therapy
--- NOTE | 2018-01-18 16:26 | CP.PCM.CON ---
History of Present Illness - History of Present Illness History of Present Illness: 47 year old female with a history of DM HTN, HL, CAD s/p CABG, CHF, ESRD on HD, presenting with shortness of breath and abdominal pain, with anemia. The patient denies abnormal bleeding and bruising. She does note to fatigue and weakness which she attributes to a diminished appetite. She denies fevers and chills. Past medical history: DM, HTN, HL, CAD s/p CABG, ESRD on HD Past surgical history: CABG Family history: Denies hematologic and oncologic problems Social history: Denies tobacco, alcohol, and illicit drug use. Allergies: Anesthesia Review of systems: All remaining review of systems including HEENT, cardiovascular, respiratory, gastrointestinal, genitourinary, musculoskeletal, dermatologic, neurologic, and psychiatric are negative unless mentioned in the HPI. 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 - ENDOCRINE/METABOLIC Hx Diabetes Mellitus Type 2: Yes - HEMATOLOGICAL/ONCOLOGICAL Hx Blood Transfusions: Yes Hx Blood Transfusion Reaction: No - INTEGUMENTARY Hx Dermatological Problems: No - MUSCULOSKELETAL/RHEUMATOLOGICAL Hx Musculoskeletal Disorders: No - GASTROINTESTINAL Hx Gastrointestinal Disorders: No - GENITOURINARY/GYNECOLOGICAL Hx Genitourinary Disorders: No - PSYCHIATRIC Hx Emotional Abuse: No Hx Physical Abuse: No Hx Substance Use: No - SURGICAL HISTORY Hx Coronary Artery Bypass Graft: Yes - ANESTHESIA Hx Anesthesia Reactions: Yes (VOMITING) Hx Malignant Hyperthermia: No Meds Allergies/Adverse Reactions: Allergies Allergy/AdvReac Type Severity Reaction Status Date / Time anesthesia AdvReac VOMITING Uncoded 11/06/17 05:50 - Medications Medications: Current Medications Acetaminophen (Tylenol 325mg Tab) 650 mg PO Q4 PRN PRN Reason: Fever >100.4 F Last Admin: 01/17/18 20:40 Dose: 650 mg Acetaminophen (Tylenol 650 Mg Supp) 650 mg RC Q4H PRN PRN Reason: Fever >100.4 F Ascorbic Acid (Vitamin C 500 Mg Tab) 500 mg PO DAILY [facility] Last Admin: 01/18/18 11:02 Dose: 500 mg Aspirin (Ecotrin) 81 mg PO DAILY [facility] Last Admin: 01/18/18 11:00 Dose: 81 mg Atorvastatin Calcium (Lipitor) 20 mg PO HS [facility] Last Admin: 01/17/18 21:00 Dose: 20 mg Clonidine HCl (Catapres) 0.1 mg PO Q8H PRN PRN Reason: Systolic Blood Pressure Clonidine HCl (Catapres) 0.1 mg PO BID [facility] Last Admin: 01/18/18 11:00 Dose: 0.1 mg Clopidogrel Bisulfate (Plavix) 75 mg PO QAM [facility] Last Admin: 01/18/18 11:00 Dose: 75 mg Fenofibrate (Tricor) 48 mg PO DAILY [facility] Last Admin: 01/17/18 10:00 Dose: Not Given Heparin Sodium (Porcine) (Heparin) 2,200 units ICA MOWEFR [facility] Last Admin: 01/14/18 17:12 Dose: 2,200 units Heparin Sodium (Porcine) (Heparin) 2,400 [facility] Last Admin: 01/14/18 17:13 Dose: 2,400 units Hydralazine HCl (Apresoline) 50 mg PO BID [facility] Last Admin: 01/18/18 11:00 Dose: 50 mg Doxycycline Hyclate 100 mg/ (Sodium Chloride) 100 mls @ 100 mls/hr IVPB Q12 [facility] PRN Reason: Protocol Last Admin: 01/18/18 11:56 Dose: 100 mls/hr Cefepime HCl (Maxipime 1gm) 1 gm in 100 mls @ 100 mls/hr IVPB Q24H [facility] PRN Reason: Protocol Stop: 01/21/18 18:01 Last Admin: 01/17/18 18:28 Dose: 100 mls/hr [facility]ulin [facility]em[facility] (Levemir) [facility] Last Admin: 01/18/18 08:35 Dose: 20 unit Insulin Human Lispro (Humalog Med) 0 units SC AC [facility] PRN Reason: Protocol Last Admin: 01/18/18 11:53 Dose: 2 units Lactobacillus Acidophilus (Bacid Acidophilus) 1 cap PO BID [facility] Last Admin: 01/18/18 11:01 Dose: 1 cap Levalbuterol HCl (Xopenex) 0.63 mg IH [id number] [facility] Last Admin: 01/18/18 13:40 Dose: Not Given Lisinopril (Zestril) 20 mg PO QAM [facility] Last Admin: 01/18/18 11:02 Dose: 20 mg Loratadine (Claritin) 10 mg PO DAILY [facility] Last Admin: 01/18/18 11:02 Dose: 10 mg Metoclopramide HCl (Reglan) 5 mg IVP ACHS RE[facility] Last Admin: 01/18/18 11:52 Dose: 5 mg Metolazone (Zaroxolyn) 10 mg PO BID [facility] Last Admin: 01/18/18 11:01 Dose: 10 mg Metoprolol Tartrate (Lopressor) 50 mg PO BRKDIN REPLACED BY [facility] Last Admin: 01/18/18 08:46 Dose: 50 mg Ondansetron HCl (Zofran Inj) 4 mg IVP Q4H PRN PRN Reason: Nausea/Vomiting Last Admin: 01/14/18 21:02 Dose: 4 mg Pantoprazole Sodium (Protonix Ec Tab) 40 mg PO 0600,1600 REPL[facility] Last Admin: 01/18/18 05:51 Dose: 40 mg Pregabalin (Lyrica) 50 mg PO BID RE[facility] BY [facility] Last Admin: 01/18/18 11:03 Dose: 50 mg Sevelamer HCl (Renagel) 2,400 mg PO ACTID REPLAC[facility] BY [facility] Last Admin: 01/18/18 11:00 Dose: 2,400 mg Spironolactone (Aldactone) 25 mg PO BID REPL[facility] Last Admin: 01/18/18 11:01 Dose: 25 mg Torsemide (Demadex) 100 mg PO BID [facility] Last Admin: 01/18/18 10:59 Dose: 100 mg Physical Exam - Head Exam Head Exam: ATRAUMATIC - Eye Exam Eye Exam: Normal appearance - ENT Exam ENT Exam: Mucous Membranes Dry - Respiratory Exam Respiratory Exam: NORMAL BREATHING PATTERN - Cardiovascular Exam Cardiovascular Exam: +S1, +S2 - GI/Abdominal Exam GI & Abdominal Exam: Normal Bowel Sounds - Extremities Exam Extremities exam: Positive for: pedal edema - Neurological Exam Neurological exam: Oriented x3 - Psychiatric Exam Psychiatric exam: Depressed - Skin Skin Exam: Warm Results - Vital Signs Recent Vital Signs: Last Vital Signs Temp 97.7 F 06/05/18 14:00 Pulse 74 01/18/18 14:00 Resp 20 01/18/18 14:00 BP 107/59 L 01/18/18 14:00 Pulse Ox 99 01/18/18 14:00 - Labs Result Diagrams: 01/18/18 08:00 01/18/18 08:00 Labs: Laboratory Results - last 24 hr 01/14/18 01/15/18 01/15/18 16:50 08:10 09:00 WBC RBC Hgb Hct MCV MCH MCHC RDW Plt Count MPV Gran % Lymph % (Auto) Coke % (Auto) Eos % (Auto) Baso % (Auto) Gran # Lymph # (Auto) Coke # (Auto) Eos # (Auto) Baso # (Auto) Sodium Potassium Chloride Carbon Dioxide Anion Gap BUN Creatinine Est GFR ( Amer) Est GFR (Non-Af Amer) POC Glucose (mg/dL) Random Glucose Calcium Phosphorus Magnesium Total Bilirubin Direct Bilirubin AST ALT Alkaline Phosphatase Total Protein Albumin Globulin Albumin/Globulin Ratio PTH Intact Whole Molec 278 H Urine Collection Time Urine Total Volume Ur Creatinine 24 Hour Ur Sodium 24 Hour Urine Opiates Screen Urine Methadone Screen Ur Barbiturates Screen Ur Phencyclidine Scrn Ur Amphetamines Screen U Benzodiazepines Scrn U Oth Cocaine Metabols U Cannabinoids Screen H. pylori Breath Test Not detected Crossmatch See Detail 01/17/18 01/17/18 01/18/18 16:18 22:21 06:43 WBC RBC Hgb Hct MCV MCH MCHC RDW Plt Count MPV Gran % Lymph % (Auto) Coke % (Auto) Eos % (Auto) Baso % (Auto) Gran # Lymph # (Auto) Coke # (Auto) Eos # (Auto) Baso # (Auto) Sodium Potassium Chloride Carbon Dioxide Anion Gap BUN Creatinine Est GFR ( Amer) Est GFR (Non-Af Amer) POC Glucose (mg/dL) 227 H 147 H Random Glucose Calcium Phosphorus Magnesium Total Bilirubin Direct Bilirubin AST ALT Alkaline Phosphatase Total Protein Albumin Globulin Albumin/Globulin Ratio PTH Intact Whole Molec Urine Collection Time 24 Urine Total Volume 350 L Ur Creatinine 24 Hour 280.0 L Ur Sodium 24 Hour 28.4 L Urine Opiates Screen Urine Methadone Screen Ur Barbiturates Screen Ur Phencyclidine Scrn Ur Amphetamines Screen U Benzodiazepines Scrn U Oth Cocaine Metabols U Cannabinoids Screen H. pylori Breath Test Crossmatch 01/18/18 01/18/18 01/18/18 08:00 08:00 08:04 WBC 5.6 RBC 2.88 L Hgb 9.3 L Hct 27.6 L MCV 95.8 MCH 32.3 MCHC 33.7 RDW 13.6 Plt Count 212 MPV 9.6 Gran % 72.2 H Lymph % (Auto) 16.2 L Coke % (Auto) 7.8 H Eos % (Auto) 3.4 Baso % (Auto) 0.4 Gran # 4.06 Lymph # (Auto) 0.9 L Coke # (Auto) 0.4 Eos # (Auto) 0.2 Baso # (Auto) 0.02 Sodium 140 Potassium 4.1 Chloride 99 Carbon Dioxide 27 Anion Gap 18 BUN 37 H Creatinine 5.6 H Est GFR ( Amer) 10 Est GFR (Non-Af Amer) 8 POC Glucose (mg/dL) Random Glucose 141 H Calcium 9.0 Phosphorus 4.8 H Magnesium 1.9 Total Bilirubin 0.3 Direct Bilirubin 0.3 AST 19 ALT 24 Alkaline Phosphatase 62 Total Protein 7.0 Albumin 3.7 Globulin 3.3 Albumin/Globulin Ratio 1.1 PTH Intact Whole Molec Urine Collection Time Urine Total Volume Ur Creatinine 24 Hour Ur Sodium 24 Hour Urine Opiates Screen Negative Urine Methadone Screen Negative Ur Barbiturates Screen Negative Ur Phencyclidine Scrn Negative Ur Amphetamines Screen Negative U Benzodiazepines Scrn Negative U Oth Cocaine Metabols Negative U Cannabinoids Screen Negative H. pylori Breath Test Crossmatch 01/18/18 11:05 WBC RBC Hgb Hct MCV MCH MCHC RDW Plt Count MPV Gran % Lymph % (Auto) Coke % (Auto) Eos % (Auto) Baso % (Auto) Gran # Lymph # (Auto) Coke # (Auto) Eos # (Auto) Baso # (Auto) Sodium Potassium Chloride Carbon Dioxide Anion Gap BUN Creatinine Est GFR ( Amer) Est GFR (Non-Af Amer) POC Glucose (mg/dL) 229 H Random Glucose Calcium Phosphorus Magnesium Total Bilirubin Direct Bilirubin AST ALT Alkaline Phosphatase Total Protein Albumin Globulin Albumin/Globulin Ratio PTH Intact Whole Molec Urine Collection Time Urine Total Volume Ur Creatinine 24 Hour Ur Sodium 24 Hour Urine Opiates Screen Urine Methadone Screen Ur Barbiturates Screen Ur Phencyclidine Scrn Ur Amphetamines Screen U Benzodiazepines Scrn U Oth Cocaine Metabols U Cannabinoids Screen H. pylori Breath Test Crossmatch Assessment & Plan (1) Anemia Assessment and Plan: work up conisistent with a hypoproliferative erythroid response, likely anemia of CKD pt on erythropoietin supplementation per renal mildly elevated free light chain ratio in the past; will repeat no iron/b12/folate deficiency will add stool occult blood transfuse PRN Thank you for this interesting consult. Status: Acute
[2018-01-18] MEDS: Cefepime 1gm in NS 100ml 1 GM/100 ML BAG IVPB SCH (18:14)
--- NOTE | 2018-01-18 19:16 | CARD ---
APPROVED REPORT EXAM: Two-dimensional and M-mode echocardiogram with Doppler and color Doppler. INDICATION Cardiac Disease: CAD Cardiomyopathy Congestive Heart Failure 2D DIMENSIONS Left Atrium (2D)3.8 (1.6-4.0cm)IVSd1.6 (0.7-1.1cm) LVDd5.1 (3.9-5.9cm)PWd1.2 (0.7-1.1cm) LVDs4.0 (2.5-4.0cm)FS (%) 22.2 % LVEF (%)44.5 (>50%) M-Mode DIMENSIONS Aortic Root3.10 (2.2-3.7cm)Aortic Cusp Exc.2.00 (1.5-2.0cm) Aortic Valve AoV Peak Wccordhz50.1cm/Luma Peak GR.4mmHg Mitral Valve MV E Xzqnsqgj13.1cm/sMV A Cjrcaipi19.7cm/sE/A ratio0.8 TDI E/Lateral E'0.0E/Medial E'0.0 Tricuspid Valve TR Peak [id number]/sRAP [id number] Peak Gr.18mmHg [id number] LEFT VENTRICLE The left ventricle is normal size. There is mild concentric left ventricular hypertrophy. The left ventricular function is normal. The left ventricular ejection fraction is within the normal range. There is normal LV segmental wall motion. RIGHT VENTRICLE The right ventricle is normal size. The right ventricular systolic function is normal. ATRIA The left atrium size is normal. The right atrium size is normal. The interatrial septum is intact with no evidence for an atrial septal defect. AORTIC VALVE The aortic valve is normal in structure. No aortic regurgitation is present. There is no aortic valvular stenosis. MITRAL VALVE Mitral annular calcification is moderate. There is no mitral valve regurgitation noted. TRICUSPID VALVE The tricuspid valve is normal in structure. There is mild tricuspid regurgitation. GREAT VESSELS The aortic root is normal in size. The IVC is normal in size and collapses >50% with inspiration. PERICARDIAL EFFUSION There is no pleural effusion. There is no pericardial effusion. <Conclusion> Technically limited study. Chamber sizes appear within normal limits. Mild concentric LVH. LV systolic function appears within normal limits. Mild tricuspid regurgitation.
[2018-01-18 22:21] LABS: GLYCOMARK(R) 1.4 mcg/mL (7.5-28.4)
--- NOTE | 2018-01-18 22:58 | PN ---
DATE: 01/18/2018 SUBJECTIVE: The patient is seen in room 569, bed 2. The patient is sitting up in the bed. Overnight nurse's notes were reviewed. The patient had episode of headache. The patient was given Tylenol. The patient was found to be alert, awake, and oriented x3.. No adverse events were documented. The patient yesterday threatened to sign out against medical advice due to illness of her daughter, but patient has not signed out against medical advice and again, the patient is insisting that she wants to leave against medical advice, although the patient was again explained that the patient is still on active inpatient treatment with intravenous antibiotics. Except her details were discussed and explained to the patient at length and all questions concerned answered. OBJECTIVE: VITAL SIGNS: T-max 99; heart rate 74, 99, 77; blood pressure is 107/59, 104/65, 118/53, 113/62; respirations 20; O2 sat 99%. HEENT: Head: Normocephalic, atraumatic. Pinkish pale conjunctivae. Anicteric sclerae. No oropharyngeal lesion. NECK: No neck rigidity. CHEST: Shows positive median sternotomy surgical scar. Positive right upper chest dialysis catheter. LUNGS: Show improved aeration. No rales, crackles, or wheezing was noted. CARDIOVASCULAR: Shows S1 and S2, regular rhythm. Positive systolic murmur at the left sternal border, right second intercostal space, left second intercostal space. ABDOMEN: Soft, protuberant, obese. Positive bowel sounds. No hepatosplenomegaly noted. No guarding. No rigidity. No rebound tenderness. No costovertebral angle tenderness. GENITALIA: Female. RECTAL: Deferred. EXTREMITIES: Show trace swelling of the lower extremity. No pitting edema, no calf numbness, no Homans sign. NEUROLOGIC: The patient is alert, awake, and oriented x3. Cranial nerves II through XII intact. Gait examination is not tested. MUSCULOSKELETAL: Shows a body mass index of 37. DIAGNOSTICS: 01/18: WBC 5.6, hemoglobin and hematocrit 9.3 and 27.6, platelets 212. Granulocytes 72%. Sodium 140, potassium 4.1, chloride 99, CO2 of 27, anion gap 18. BUN 37, creatinine 5.6. GFR is 10. Glucose 141, 229, 147, 227. Calcium 9, phosphorus 4.8, magnesium 1.9. LFTs are normal. Urine drug screen is now finally done on 12/18, which is negative. H. pylori is nondetected. Hepatitis A, B, C serologies and HIV negative. Microbiology: Blood cultures are negative. The patient is still refusing packed red blood cell transfusion. Chest x-ray was reviewed, which shows right upper chest dialysis catheter, right lower lobe linear scarring, mild cardiomegaly, CABG noted. The patient's echocardiogram was finally done, the results are pending.. Preliminary echo findings were reviewed. Left ventricular ejection fraction was noted to be about 40% to 50%. IMPRESSION AND PLAN: 1. Healthcare-associated pneumonia. 2. Slowly improving right-sided healthcare pneumonia. 3. Right lower lobe linear scarring. 4. Cardiomegaly. 5. History of coronary artery disease, coronary artery bypass graft, and coronary angioplasty. 6. History of myocardial infarction. 7. Left ventricular ejection fraction of 45% to 50%. 8. Morbid obesity. 9. Anemia of chronic disease and chronic kidney disease. 10. Low-grade fever. 11. Transient tachycardia. 12. History of hypertension. 13. Possible gastroenteritis versus gastroparesis. 14. Hyperlipidemia. 15. Hypertension. 16. Hypercholesteremia. 17. Insulin-requiring diabetes mellitus with hyperglycemia. 18. Diabetic gastroparesis. 19. Tachycardia. 20. Diabetic neuropathy. 21. Secondary hyperparathyroidism. 1. Abdominal pain, etiology unclear, questionable acute gastroenteritis versus acute exacerbation of diabetic gastroparesis. 2. Uncontrolled insulin-requiring diabetes mellitus with hyperglycemia and hemoglobin A1c of greater than 11.7. 3. Hypertension. 4. Low grade fever. 5. Transient tachycardia. 6. Morbid obesity with elevated body mass index of 37.3. 7. Leukopenia. 8. Anemia of chronic disease with normocytic anemia. 9. Granulocytosis. 10. Questionable increased anion gap metabolic acidosis. 11. Acute on chronic systolic congestive heart failure with dilated ischemic cardiomyopathy. 12. Hyperprocalcitoninemia. 13. Secondary hyperparathyroidism with elevated PTH of greater than 270. 14. Hypokalemia. 15. Hypovitaminosis D. 16. Elevated fructosamine level of greater than 540. 17. Hyperphosphatemia. 18. Proteinuria, glycosuria, microscopic hematuria, bacteriuria. 19. Nonspecific intraventricular conduction block. 20. Questionable lateral ischemia. 21. End-stage renal disease, hemodialysis dependent three times a week via the right upper chest [place] catheter. 22. Acute decompensated systolic congestive heart failure and possible dilated ischemic cardiomyopathy. 23. Bilateral multilobar healthcare-associated pneumonia. 24. Anemia of chronic kidney disease. 25. Hypertensive chronic kidney disease with end-stage renal disease. 26. Volume and fluid overload. 27. History of myocardial infarction, coronary artery disease, coronary artery bypass graft and history of angioplasty. 28. Poor compliance. 29. Dyslipidemia. 30. Diabetic neuropathy. 31. Sepsis with right lower lobe healthcare-associated pneumonia. 1. Abdominal pain, etiology undetermined. 2. Most likely diabetic gastroparesis, symptomatic with symptoms of abdominal pain. 3. Insulin-requiring diabetes mellitus. 4. End-stage renal disease, hemodialysis requiring 3 times a week. 5. Hyperprocalcitoninemia. 6. Low-grade fever. 7. History of coronary artery disease, coronary artery bypass graft, history of angioplasty, stent placement and myocardial infarction. 8. History of hypertension, hyperlipidemia. 9. History of right heel osteomyelitis. 10. Sepsis with right lower lobe, right middle lobe pneumonia. 11. Poor compliance. 12. Symptomatic diabetic gastroparesis with symptoms of abdominal pain, nausea, vomiting. 13. Volume overload and fluid overload with pulmonary vascular congestion and possible systolic congestive heart failure. 14. End-stage renal disease, hemodialysis dependent. 15. Acute decompensated systolic congestive heart failure. 16. Healthcare-associated pneumonia. 17. Anemia of chronic kidney disease. 18. Hypertensive chronic kidney disease and end-stage renal disease. 19. Sepsis with right lower lobe, right middle lobe pneumonia. 20. Hypertensive cardiovascular disease with nonspecific intraventricular conduction block with left axis deviation and questionable coronary ischemia. 21. Hypertension. 22. Leukopenia. 24. Granulocytosis. 25. Uncontrolled insulin-requiring diabetes mellitus with hemoglobin A1c of 11.7 and fructose level of 546. 26. Secondary hyperparathyroidism with hyperphosphatemia. 27. Hypovitaminosis D. 28. Acute recurrent systolic congestive heart failure with elevated BNP. 29. Proteinuria with microscopic hematuria and bacteriuria. 1. Abdominal pain with nausea, vomiting. Etiology undetermined versus questionable and possible diabetic gastroparesis. 2. Severe noncompliance. 3. Hypertension. 4. Morbid obesity with elevated body mass index of 38. 5. Normocytic anemia with granulocytosis. 6. Questionable increased anion gap metabolic acidosis. 7. End-stage renal disease, hemodialysis dependent. 8. Hyperglycemia. 9. Uncontrolled diabetes mellitus. 10. Possible systolic congestive heart failure with elevated BNP. 11. Left upper extremity arteriovenous fistula placement. 12. End-stage renal disease, hemodialysis dependent three times a week via the right upper chest [place] catheter. 13. History of myocardial infarction, history of coronary artery disease, history of coronary artery bypass graft, history of angioplasty and stent placement. 14. Possible ischemic dilated cardiomyopathy. 15. Proteinuria. 16. Microscopic hematuria and bacteriuria. 17. Oxygen-requiring chronic obstructive pulmonary disease. 18. Acute exacerbation of systolic congestive heart failure. 19. Possible decompensated systolic congestive heart failure with elevated BNP. 20. Anemia of chronic kidney disease. 21. Hypertensive end-stage renal disease. 22. Hypertension. 23. Insulin-requiring diabetes mellitus. 24. Hyperlipidemia. 25. Diabetic neuropathy. 26. Diabetic gastroparesis. 1. Abdominal pain, etiology unclear versus diabetic gastroparesis with symptoms of nausea, vomiting. 2. Atypical chest pain. 3. Morbid obesity with elevated body mass index. 4. Low-grade fever. 5. Tachycardia. 6. Hypertension. 7. Normocytic anemia. 8. Granulocytosis. 9. Increased anion gap metabolic acidosis. 10. End-stage renal disease, hemodialysis dependent. 11. Uncontrolled diabetes mellitus with hyperglycemia. 12. Proteinuria and bacteriuria and microscopic hematuria. 13. Cardiomegaly. 14. Pulmonary vascular congestion. 15. Right lower lobe, right middle lobe atelectasis versus pneumonia and infiltrate. 16. Splenomegaly. 17. Left axis deviation with intraventricular conduction block and lateral coronary ischemia. 18. Status post right upper chest dialysis catheter placement. 19. Possible acute exacerbation of systolic congestive heart failure. 20. Probable diabetic gastroparesis versus gastritis. 21. Uncontrolled diabetes. PLAN: At this time, patient is seen by Hematology and Infectious Disease today. Their recommendations were noted. According to the Infectious Disease, continue intermittent vancomycin and cefepime, and to continue cefepime 7 days of therapy, today is day 3. The patient was updated about her condition, diagnosis, treatment plan, and treatment options. The patient has again stated that she would sign out against medical advice to visit her daughter who is being hospitalized. The patient was explained about the risk and consequences of signing against medical advice. At this time, plan is that the patient will have repeat labs done in the morning. CURRENT CONSULTATIONS: Hematology/Oncology, Nephrology, Infectious Disease, Cardiology, diabetic education referral, TCU evaluation ordered. CURRENT MEDICATIONS: Tylenol 650 mg p.o. and suppository every 4 hours p.r.n., ascorbic acid, vitamin C 500 mg daily, Ecotrin 81 mg daily, Lipitor 20 mg daily, clonidine 0.1 mg every 8 hours p.r.n., clonidine 0.1 mg twice a day, Plavix 75 mg daily, Vibramycin 100 mg IV every 12 hours, Tricor 48 mg daily, hydralazine 50 mg twice a day, Levemir 20 units with breakfast and dinner, Humalog medium dose sliding scale coverage, Bacid 1 capsule twice a day, Xopenex nebulizer 0.63 mg every 6 hours, Zestril 20 mg daily, ferritin 10 mg daily, cefepime 1 g IV every 24 hours, Reglan 5 mg IV push before meals and at bedtime, Zaroxolyn 10 mg twice a day, Lopressor 50 mg twice a day, Zofran 4 mg IV every 4 hours p.r.n., Protonix 40 mg daily, Lyrica 50 mg twice a day, Renagel 2400 mg before meals three times a day, Aldactone 25 mg twice a day, Demadex 100 mg twice a day. Chest PT, oxygen nasal cannula ordered, renal diet is ordered, out of bed, SCDs, physical therapy, occupational therapy all ordered. The patient has been ordered stool for occult blood, still not done,. At present, the patient will be continued on the above therapeutic intervention with continuation of the intravenous antibiotics and other treatment as per the MAR until the patient is finally cleared by all subspecialty for discharge. Dictated and electronically signed, not read. Moses Lira MD [facility]
--- NOTE | 2018-01-18 23:34 | CP.PCM.PN ---
Subjective - Date & Time of Evaluation Date of Evaluation: 01/18/18 Time of Evaluation: 11:30 - Subjective Subjective: Patient reports breathing improved; wanting to go home; tolerating diet; Objective - Vital Signs/Intake and Output Vital Signs (last 24 hours): Temp Pulse Resp BP Pulse Ox 99 F 74 20 90/54 L 99 01/18/18 22:54 01/18/18 22:54 01/18/18 22:54 01/18/18 22:54 01/18/18 22:54 Intake and Output: 01/18/18 01/19/18 18:59 06:59 Intake Total 540 180 Balance 540 180 - Medications Medications: Current Medications Acetaminophen (Tylenol 325mg Tab) 650 mg PO Q4 PRN PRN Reason: Fever >100.4 F Last Admin: 01/17/18 20:40 Dose: 650 mg Acetaminophen (Tylenol 650 Mg Supp) 650 mg RC Q4H PRN PRN Reason: Fever >100.4 F Ascorbic Acid (Vitamin C 500 Mg Tab) 500 mg PO DAILY [facility] Last Admin: 01/18/18 11:02 Dose: 500 mg Aspirin (Ecotrin) 81 mg PO DAILY [facility] Last Admin: 01/18/18 11:00 Dose: 81 mg Atorvastatin Calcium (Lipitor) 20 mg PO HS [facility] Last Admin: 01/18/18 21:28 Dose: 20 mg Clonidine HCl (Catapres) 0.1 mg PO Q8H PRN PRN Reason: Systolic Blood Pressure Clonidine HCl (Catapres) 0.1 mg PO BID [facility] Last Admin: 01/18/18 11:00 Dose: 0.1 mg Clopidogrel Bisulfate (Plavix) 75 mg PO QAM [facility] Last Admin: 01/18/18 11:00 Dose: 75 mg Fenofibrate (Tricor) 48 mg PO DAILY [facility] Last Admin: 01/18/18 18:15 Dose: Not Given Heparin Sodium (Porcine) (Heparin) 2,200 units ICA [facility] Last Admin: 01/14/18 17:12 Dose: 2,200 units Heparin Sodium (Porcine) (Heparin) 2,400 units ICV [facility] Last Admin: 01/14/18 17:13 Dose: 2,400 units Hydralazine HCl (Apresoline) 50 mg PO BID [facility] Last Admin: 01/18/18 18:10 Dose: 50 mg Doxycycline Hyclate 100 mg/ (Sodium Chloride) 100 mls @ 100 mls/hr IVPB Q12 SELWYN PRN Reason: Protocol Last Admin: 01/18/18 21:29 Dose: Not Given Cefepime HCl (Maxipime 1gm) 1 gm in 100 mls @ 100 mls/hr IVPB Q24H SELWYN PRN Reason: Protocol Stop: 01/21/18 18:01 Last Admin: 01/18/18 18:14 Dose: Not Given Insulin Detemir (Levemir) 20 unit SC ACBD [facility] Last Admin: 01/18/18 18:13 Dose: 20 unit Insulin Human Lispro (Humalog Med) 0 units SC AC [facility] PRN Reason: Protocol Last Admin: 01/18/18 18:13 Dose: 3 units Lactobacillus Acidophilus (Bacid Acidophilus) 1 cap PO BID [facility] Last Admin: 01/18/18 18:10 Dose: 1 cap Levalbuterol HCl (Xopenex) 0.63 mg IH [id number] [facility] Last Admin: 01/18/18 21:30 Dose: Not Given Lisinopril (Zestril) 20 mg PO QAM [facility] Last Admin: 01/18/18 11:02 Dose: 20 mg Loratadine (Claritin) 10 mg PO DAILY [facility] Last Admin: 01/18/18 11:02 Dose: 10 mg Metoclopramide HCl (Reglan) 5 mg IVP ACHS [facility] Last Admin: 01/18/18 21:28 Dose: 5 mg Metolazone (Zaroxolyn) 10 mg PO BID [facility] Last Admin: 01/18/18 18:11 Dose: 10 mg Metoprolol Tartrate (Lopressor) 50 mg PO BRKDIN [facility] Last Admin: 01/18/18 18:12 Dose: 50 mg Ondansetron HCl (Zofran Inj) 4 mg IVP Q4H PRN PRN Reason: Nausea/Vomiting Last Admin: 01/14/18 21:02 Dose: 4 mg Pantoprazole Sodium (Protonix Ec Tab) 40 mg PO 0600,1600 [facility] Last Admin: 01/18/18 18:11 Dose: 40 mg Pregabalin (Lyrica) 50 mg PO BID [facility] Last Admin: 01/18/18 18:11 Dose: 50 mg Sevelamer HCl (Renagel) 2,400 mg PO ACTID [facility] Last Admin: 01/18/18 18:10 Dose: 2,400 mg Spironolactone (Aldactone) 25 mg PO BID [facility] Last Admin: 01/18/18 18:11 Dose: 25 mg Torsemide (Demadex) 100 mg PO BID [facility] Last Admin: 01/18/18 18:11 Dose: 100 mg - Labs Labs: 01/18/18 08:00 01/18/18 08:00 - Constitutional Appears: Non-toxic, No Acute Distress - Eye Exam Eye Exam: Normal appearance. absent: Scleral icterus - ENT Exam ENT Exam: Mucous Membranes Moist - Respiratory Exam Respiratory Exam: Clear to Ausculation Bilateral. absent: Respiratory Distress - Cardiovascular Exam Cardiovascular Exam: RRR, +S1, +S2 - GI/Abdominal Exam GI & Abdominal Exam: Soft. absent: Distended, Tenderness - Extremities Exam Additional comments: minimal lower leg edema (improved); - Neurological Exam Neurological Exam: Alert, Awake - Psychiatric Exam Psychiatric exam: Normal Affect, Normal Mood. absent: Agitated - Skin Skin Exam: Warm. absent: Cyanosis Assessment and Plan (1) ESRD (end stage renal disease) on dialysis Assessment & Plan: Stable electrolyte status; challenging dry weight successfully; giving extra UF only session today, next full HD session tomorrow per routine; Status: Chronic (2) Congestive heart failure Assessment & Plan: Acute systolic CHF; symptomatically improved; continue diuretics and UF on HD; Status: Acute (3) Pneumonia Assessment & Plan: On cefepime (dosed for HD) and doxy, continue per ID; Status: Acute (4) Anemia in ESRD (end-stage renal disease) Assessment & Plan: Hgb improved with aranesp and IV iron; will continue IV iron loading on HD days; Status: Chronic (5) Hypertensive CKD, ESRD on dialysis Assessment & Plan: BP much better controlled with volume status optimized; holding clonidine for now; continue rest of meds; Status: Chronic (6) Chronic kidney disease-mineral and bone disorder Assessment & Plan: Phos controlled, continue sevelamer 3 tabs w/ meals; giving hectorol 1 mcg on HD ; Status: Chronic
[2018-01-19] MEDS: Levalbuterol 0.63 MG/3 ML Inhal Soln UD IH SCH ×4 (02:07→21:15)
[2018-01-19] MEDS: Pantoprazole 40 mg EC Tab PO SCH ×2 (06:49→17:21)
[2018-01-19] MEDS: Insulin Lispro (humaLOG) MEDIUM Coverage SC SCH ×3 (08:20→16:38)
[2018-01-19] MEDS: Insulin Detemir 100 units/ml Vial (Levemir) SC SCH ×2 (08:20→17:21)
[2018-01-19] MEDS: Lactobacillus Acidophilus 500 MU Cap PO SCH ×2 (10:55→17:22)
[2018-01-19] MEDS: metOLazone 5 MG TAB PO SCH ×2 (10:56→17:22)
[2018-01-19] MEDS ORDERED: Doxercalciferol 4 mcg/2 ml Inj IV ONE (11:58)
[2018-01-19] MEDS ORDERED: Vancomycin 1gm in NS 250ml 1 GM/250 ML BAG IVPB STA (11:58)
[2018-01-19] MEDS ORDERED: Iron Sucrose 100 mg/5 ml Inj IVP ONE (11:59)
[2018-01-19] MEDS ORDERED: Darbepoetin Alfa 100 mcg/ml Inj IVP SCH (12:00)
[2018-01-19 12:08] LABS: EOS # 0.1 (0.0-0.7); EOS % 2.6 % (1.5-5.0); GRAN # 3.57 (1.4-6.5); HEMOGLOBIN 8.9 g/dL (12.0-16.0); LYMPH # 1.2 (1.2-3.4); LYMPH % 22.1 % (22.0-35.0); MEAN CORPUSCULAR HGB CONC 33.3 g/dl (31.0-37.0); MEAN PLATELET VOLUME 9.5 fl (7.0-11.0); MONO # 0.4 (0.1-0.6); MONO % 8.3 % (1.0-6.0); RBC 2.78 10^6/uL (3.5-6.1); RED CELL DISTRIBUTION WIDTH 13.6 % (11.5-14.5); WHITE BLOOD COUNT 5.3 10^3/ul (4.5-11.0)
[2018-01-19 12:20] LABS: ALB/GLOB RATIO 1.1 (1.1-1.8); ALBUMIN 3.6 g/dL (3.0-4.8); BILIRUBIN,DIRECT 0.2 mg/dL (0.0-0.4); CALCIUM 8.9 mg/dL (8.4-10.5)
--- NOTE | 2018-01-19 13:02 | CP.PCM.PN ---
<Mara Brennan - Last Filed: 01/19/18 13:32> Subjective - Date & Time of Evaluation Date of Evaluation: 01/19/18 Time of Evaluation: 12:59 - Subjective Subjective: Medicine Progress Note - Dr Lira service: Patient seen and examined at bedside. Per nursing no acute events overnight. Patient is refusing antibiotics and all AM medications. Desires to go home. Offers no other complaints at this time. Patient for dialysis today. Denies headaches, dizziness, cp, palpitations, sob, abdominal pain, changes in bowel habits. Objective - Vital Signs/Intake and Output Vital Signs (last 24 hours): Temp Pulse Resp BP Pulse Ox 99.1 F 82 20 92/51 L 99 01/19/18 06:00 01/19/18 06:00 01/19/18 06:00 01/19/18 08:21 01/19/18 06:00 Intake and Output: 01/19/18 01/19/18 06:59 18:59 Intake Total 420 Balance 420 - Medications Medications: Current Medications Acetaminophen (Tylenol 325mg Tab) 650 mg PO Q4 PRN PRN Reason: Fever >100.4 F Last Admin: 01/17/18 20:40 Dose: 650 mg Acetaminophen (Tylenol 650 Mg Supp) 650 mg RC Q4H PRN PRN Reason: Fever >100.4 F Ascorbic Acid (Vitamin C 500 Mg Tab) 500 mg PO DAILY [facility] Last Admin: 01/19/18 10:56 Dose: Not Given Aspirin (Ecotrin) 81 mg PO DAILY [facility] Last Admin: 01/19/18 10:55 Dose: Not Given Atorvastatin Calcium (Lipitor) 20 mg PO HS [facility] Last Admin: 01/18/18 21:28 Dose: 20 mg Clonidine HCl (Catapres) 0.1 mg PO Q8H PRN PRN Reason: Systolic Blood Pressure Clonidine HCl (Catapres) 0.1 mg PO BID [facility] Last Admin: 01/18/18 11:00 Dose: 0.1 mg Clopidogrel Bisulfate (Plavix) 75 mg PO QAM [facility] Last Admin: 01/19/18 10:55 Dose: Not Given Darbepoetin Davonte (Aranesp) 100 mcg IVP [facility] Fenofibrate (Tricor) 48 mg PO DAILY [facility] Last Admin: 01/19/18 10:55 Dose: Not Given Heparin Sodium (Porcine) (Heparin) 2,200 units ICA [facility] Last Admin: 01/14/18 17:12 Dose: 2,200 units Heparin Sodium (Porcine) (Heparin) 2,400 units ICV [facility] Last Admin: 01/14/18 17:13 Dose: 2,400 units Hydralazine HCl (Apresoline) 50 mg PO BID [facility] Last Admin: 01/19/18 10:54 Dose: Not Given Doxycycline Hyclate 100 mg/ (Sodium Chloride) 100 mls @ 100 mls/hr IVPB Q12 SELWYN PRN Reason: Protocol Last Admin: 01/19/18 10:56 Dose: Not Given Cefepime HCl (Maxipime 1gm) 1 gm in 100 mls @ 100 mls/hr IVPB Q24H SELWYN PRN Reason: Protocol Stop: 01/21/18 18:01 Last Admin: 01/18/18 18:14 Dose: Not Given Vancomycin HCl (Vancomycin 1gm) 1 gm in 250 mls @ 167 mls/hr IVPB STAT STA PRN Reason: Protocol Stop: 01/19/18 13:27 [facility]) [facility] Last Admin: 01/19/18 08:20 Dose: 20 unit Insulin Human Lispro (Humalog Med) 0 units SC AC [facility] PRN Reason: Protocol Last Admin: 01/19/18 08:20 Dose: 1 units Lactobacillus Acidophilus (Bacid Acidophilus) 1 cap PO BID [facility] Last Admin: 01/19/18 10:55 Dose: Not Given Levalbuterol HCl (Xopenex) 0.63 mg IH [id number] [facility] Last Admin: 01/19/18 07:26 Dose: Not Given Lisinopril (Zestril) 20 mg PO QAM [facility] Last Admin: 01/19/18 10:56 Dose: Not Given Loratadine (Claritin) 10 mg PO DAILY [facility] Last Admin: 01/19/18 10:55 Dose: Not Given Metoclopramide HCl (Reglan) 5 mg IVP ACHS [facility] Last Admin: 01/19/18 10:56 Dose: Not Given Metolazone (Zaroxolyn) 10 mg PO BID [facility] Last Admin: 01/19/18 10:56 Dose: Not Given Metoprolol Tartrate (Lopressor) 50 mg PO BRKDIN [facility] Last Admin: 01/19/18 08:21 Dose: Not Given Ondansetron HCl (Zofran Inj) 4 mg IVP Q4H PRN PRN Reason: Nausea/Vomiting Last Admin: 01/14/18 21:02 Dose: 4 mg Pantoprazole Sodium (Protonix Ec Tab) 40 mg PO 0600,1600 [facility] Last Admin: 01/19/18 06:49 Dose: Not Given Pregabalin (Lyrica) 50 mg PO BID [facility] Last Admin: 01/19/18 10:55 Dose: Not Given Sevelamer HCl (Renagel) 2,400 mg PO ACTID [facility] Last Admin: 01/19/18 10:56 Dose: Not Given Spironolactone (Aldactone) 25 mg PO BID [facility] Last Admin: 01/19/18 10:54 Dose: Not Given Torsemide (Demadex) 100 mg PO BID [facility] Last Admin: 01/19/18 10:55 Dose: Not Given - Labs Labs: 01/19/18 06:30 01/19/18 06:30 - Additional Findings Additional findings: - Constitutional Appears: No Acute Distress, Older Than Stated Age, Chronically Ill, Other ( Morbidly obese.) - Head Exam Head Exam: ATRAUMATIC, NORMOCEPHALIC - Eye Exam Eye Exam: EOMI, Normal appearance. absent: Scleral icterus Pupil Exam: NORMAL ACCOMODATION - ENT Exam ENT Exam: Mucous Membranes Moist - Neck Exam Neck exam: Positive for: Normal Inspection - Respiratory Exam Respiratory Exam: Decreased Breath Sounds (at the bases), NORMAL BREATHING PATTERN. - Cardiovascular Exam Cardiovascular Exam: REGULAR RHYTHM, +S1, +S2. - GI/Abdominal Exam GI & Abdominal Exam: Normal Bowel Sounds, Soft. Additional comments: + Obese abdomen. - Extremities Exam Extremities exam: Positive for: pedal edema (+ 2), pedal pulses present. Negative for: normal capillary refill, tenderness - Back Exam Back exam: NORMAL INSPECTION - Neurological Exam Neurological exam: Alert, Oriented x3 - Psychiatric Exam Psychiatric exam: Normal Affect, Normal Mood - Skin Skin Exam: Dry, Normal Color, Warm Additional comments: + old healed wound on the right foot. No signs of acute infection. Right upper chest with HD port with clean dressing, no surrounding erythema noted left antecubital fossa with AV fistula Assessment and Plan - Assessment and Plan (Free Text) Assessment: Patient is a 47 y/o with PMHx of morbidly obese BMI 48, htn, hld, COPD on 2 liters nasal cannula, IDDM, ESRD ( HD M, W,F), CAD s/p CABG and stents, systolic CHF presenting with lower quadrant abdominal pain for 1 day, along with nausea and vomiting. Plan: 1) Abdominal pain along with nausea and vomiting likely diabetic gastroparesis ( resolved) - CT abdomen and pelvis with possible pneumonia - No acute findings on CT - Patient had gap of 17 and glucose of 456 on admission, s/p stat dose of 10 units insulin - UA with no ketones - Diabetes control as stated below - Reglan and zofran prn for nausea/vomiting 2) Worsening dyspnea due to CHF exacerbation, RLL/RML pneumonia - Patient also has underlying copd, on home oxygen - will resume home oxygen - + elevated pro bnp on admission, troponin at baseline - No acute ischemic changes on EKG - Chest x-ray with vascular congestion and cardiomegaly - CT chest with lower lobe infiltration and atelectasis. - Antibiotics: Cefepime and doxycycline; continue Bacid 1 capsule BID - Vancomycin 1 dose ordered - Procal 0.66, Urine legionella negative - Continue Chest PT, ISS use, 2L continuous humidified oxygen - Continue torsemide, aldactone and metolazone as per nephro - Echocardiogram showed EF 40-45% which is unchanged from prior study - CXR PA/LA showed no acute findings - Cardiology consulted - ID consulted 3) Acute on chronic anemia - Patient for possible renal transplant, will hold transfusing at this time - Recieved IV Venofer x 1 dose today - No signs of active bleeding noted - On aranesp, continue ascorbic acid 4) Uncontrolled DM - Will continue with long acting and basal insulin - Continue Moderate dose ISS - Continue Levemir 20 units ACBD - Renal and carb controlled diet - hgb a1c 11.7 - Diabetic education 5) ESRD- on Hemodialysis MWF - Nephro on consult, help appreciated - Continue renagel - Patient is dialysis this morning 6) Vitamin D Deficiency - Ergocalciferol 1 tab PO Q7D 7) H/O HLD- on lipitor and tricor 8) H/O HTN- on clonidine (on hold), hydralazine, lisinopril 9) CAD s/o CABG and stents- on plavix, asa, and lopressor. 10) Peripheral neuropathy- continue with Lyrica 11) DVT and gi prophylaxis: Protonix, heparin sc/VTE device. Plan discussed with Dr Lira. Mara Brennan DO PGY-1 <M[facility] Lira - Last Filed: 01/24/18 16:48> Objective - Vital Signs/Intake and Output Vital Signs (last 24 hours): Temp Pulse Resp BP Pulse Ox 99 F 85 20 102/50 L 90 L 01/21/18 06:00 01/21/18 09:00 01/21/18 06:00 01/21/18 09:00 01/21/18 06:00 - Labs Labs: 01/21/18 10:30 01/21/18 10:30 Attending/Attestation - Attestation I have personally seen and examined this patient.: Yes I have fully participated in the care of the patient.: Yes I have reviewed all pertinent clinical information, including history, physical exam and plan: Yes Notes (Text): Please read/see my dictated notes.
--- NOTE | 2018-01-19 14:18 | CP.PCM.PN ---
Subjective - Date & Time of Evaluation Date of Evaluation: 01/19/18 Time of Evaluation: 12:30 - Subjective Subjective: Feeling better, no fevers. Objective - Vital Signs/Intake and Output Vital Signs (last 24 hours): Temp Pulse Resp BP Pulse Ox 99.1 F 82 20 92/51 L 99 01/19/18 06:00 01/19/18 06:00 01/19/18 06:00 01/19/18 08:21 01/19/18 06:00 Intake and Output: 01/19/18 01/19/18 06:59 18:59 Intake Total 420 Balance 420 - Medications Medications: Current Medications Acetaminophen (Tylenol 325mg Tab) 650 mg PO Q4 PRN PRN Reason: Fever >100.4 F Last Admin: 01/17/18 20:40 Dose: 650 mg Acetaminophen (Tylenol 650 Mg Supp) 650 mg RC Q4H PRN PRN Reason: Fever >100.4 F Ascorbic Acid (Vitamin C 500 Mg Tab) 500 mg PO DAILY [facility] Last Admin: 01/19/18 10:56 Dose: Not Given Aspirin (Ecotrin) 81 mg PO DAILY [facility] Last Admin: 01/19/18 10:55 Dose: Not Given Atorvastatin Calcium (Lipitor) 20 mg PO HS [facility] Last Admin: 01/18/18 21:28 Dose: 20 mg Clonidine HCl (Catapres) 0.1 mg PO Q8H PRN PRN Reason: Systolic Blood Pressure Clonidine HCl (Catapres) 0.1 mg PO BID [facility] Last Admin: 01/18/18 11:00 Dose: 0.1 mg Clopidogrel Bisulfate (Plavix) 75 mg PO QAM [facility] Last Admin: 01/19/18 10:55 Dose: Not Given Darbepoetin Davonte (Aranesp) 100 mcg IVP [facility] Fenofibrate (Tricor) 48 mg PO DAILY [facility] Last Admin: 01/19/18 10:55 Dose: Not Given Heparin Sodium (Porcine) (Heparin) 2,200 [facility] Last Admin: 01/14/18 17:12 Dose: 2,200 units Heparin Sodium (Porcine) (Heparin) 2,400 [facility] Last Admin: 01/14/18 17:13 Dose: 2,400 units Hydralazine HCl (Apresoline) 50 mg PO BID [facility] Last Admin: 01/19/18 10:54 Dose: Not Given Doxycycline Hyclate 100 mg/ (Sodium Chloride) 100 mls @ 100 mls/hr IVPB Q12 SELWYN PRN Reason: Protocol Last Admin: 01/19/18 10:56 Dose: Not Given Cefepime HCl (Maxipime 1gm) 1 gm in 100 mls @ 100 mls/hr IVPB Q24H SELWYN PRN Reason: Protocol Stop: 01/21/18 18:01 Last Admin: 01/18/18 18:14 Dose: Not Given Vancomycin HCl (Vancomycin 1gm) 1 gm in 250 mls @ 167 mls/hr IVPB STAT STA PRN Reason: Protocol Stop: 01/19/18 13:27 Insulin Detemir (Levemir) 20 unit SC ACBD [facility] Last Admin: 01/19/18 08:20 Dose: 20 unit Insulin Human Lispro (Humalog Med) 0 units SC AC SELWYN PRN Reason: Protocol Last Admin: 01/19/18 08:20 Dose: 1 units Lactobacillus Acidophilus (Bacid Acidophilus) 1 cap PO BID [facility] Last Admin: 01/19/18 10:55 Dose: Not Given Levalbuterol HCl (Xopenex) 0.63 mg IH [id number] [facility] Last Admin: 01/19/18 07:26 Dose: Not Given Lisinopril (Zestril) 20 mg PO QAM [facility] Last Admin: 01/19/18 10:56 Dose: Not Given Loratadine (Claritin) 10 mg PO DAILY [facility] Last Admin: 01/19/18 10:55 Dose: Not Given Metoclopramide HCl (Reglan) 5 mg IVP ACHS [facility] Last Admin: 01/19/18 10:56 Dose: Not Given Metolazone (Zaroxolyn) 10 mg PO BID [facility] Last Admin: 01/19/18 10:56 Dose: Not Given Metoprolol Tartrate (Lopressor) 50 mg PO BRKDIN [facility] Last Admin: 01/19/18 08:21 Dose: Not Given Ondansetron HCl (Zofran Inj) 4 mg IVP Q4H PRN PRN Reason: Nausea/Vomiting Last Admin: 01/14/18 21:02 Dose: 4 mg Pantoprazole Sodium (Protonix Ec Tab) 40 mg PO 0600,1600 [facility] Last Admin: 01/19/18 06:49 Dose: Not Given Pregabalin (Lyrica) 50 mg PO BID [facility] Last Admin: 01/19/18 10:55 Dose: Not Given Sevelamer HCl (Renagel) 2,400 mg PO ACTID [facility] Last Admin: 01/19/18 10:56 Dose: Not Given Spironolactone (Aldactone) 25 mg PO BID [facility] Last Admin: 01/19/18 10:54 Dose: Not Given Torsemide (Demadex) 100 mg PO BID [facility] Last Admin: 01/19/18 10:55 Dose: Not Given - Labs Labs: 01/18/18 08:00 01/18/18 08:00 - Constitutional Appears: Non-toxic, Chronically Ill - Head Exam Head Exam: NORMAL INSPECTION - Respiratory Exam Respiratory Exam: Decreased Breath Sounds - Cardiovascular Exam Cardiovascular Exam: +S1, +S2 - GI/Abdominal Exam GI & Abdominal Exam: Soft. absent: Tenderness Assessment and Plan - Assessment and Plan (Free Text) Plan: Assessment right sided HCAP, slowly improving history of right foot skin and skin structure infection with Klebsiella and E. faecalis history of drug-related maculopapular rash, probably related to morphine HTN DM CAD S/P CABG chronic renal failure chronic foot ulcer on the left dyslipidemia COPD morbid obesity with BMI 48 chronic renal failure Plan continue intermittent Vancomycin and Cefepime day 4 to complete 4-7 days of therapy
[2018-01-19] MEDS: Cefepime 1gm in NS 100ml 1 GM/100 ML BAG IVPB SCH (17:23)
--- NOTE | 2018-01-19 19:48 | CP.PCM.PN ---
Subjective - Date & Time of Evaluation Date of Evaluation: 01/19/18 Time of Evaluation: 12:00 - Subjective Subjective: Reports sob stable; tolerated extra UF session yesterday; still not urinating much; Objective - Vital Signs/Intake and Output Vital Signs (last 24 hours): Temp Pulse Resp BP Pulse Ox 99.1 F 88 20 103/64 99 01/19/18 06:00 01/19/18 16:39 01/19/18 06:00 01/19/18 16:39 01/19/18 06:00 - Medications Medications: Current Medications Acetaminophen (Tylenol 325mg Tab) 650 mg PO Q4 PRN PRN Reason: Fever >100.4 F Last Admin: 01/17/18 20:40 Dose: 650 mg Acetaminophen (Tylenol 650 Mg Supp) 650 mg RC Q4H PRN PRN Reason: Fever >100.4 F Ascorbic Acid (Vitamin C 500 Mg Tab) 500 mg PO DAILY [facility] Last Admin: 01/19/18 10:56 Dose: Not Given Aspirin (Ecotrin) 81 mg PO DAILY [facility] Last Admin: 01/19/18 10:55 Dose: Not Given Atorvastatin Calcium (Lipitor) 20 mg PO HS [facility] Last Admin: 01/18/18 21:28 Dose: 20 mg Clonidine HCl (Catapres) 0.1 mg PO Q8H PRN PRN Reason: Systolic Blood Pressure Clonidine HCl (Catapres) 0.1 mg PO BID [facility] Last Admin: 01/18/18 11:00 Dose: 0.1 mg Clopidogrel Bisulfate (Plavix) 75 mg PO QAM [facility] Last Admin: 01/19/18 10:55 Dose: Not Given Darbepoetin Davonte (Aranesp) 100 mcg IVP WE [facility] Last Admin: 01/19/18 14:15 Dose: 100 mcg Fenofibrate (Tricor) 48 mg PO DAILY [facility] Last Admin: 01/19/18 10:55 Dose: Not Given Heparin Sodium (Porcine) (Heparin) 2,200 units [facility] Last Admin: 01/19/18 14:58 Dose: 2,200 units Heparin Sodium (Porcine) (Heparin) 2,400 [facility] Last Admin: 01/19/18 14:59 Dose: 2,400 units Hydralazine HCl (Apresoline) 50 mg PO BID [facility] Last Admin: 01/19/18 17:24 Dose: Not Given Doxycycline Hyclate 100 mg/ (Sodium Chloride) 100 mls @ 100 mls/hr IVPB Q12 SELWYN PRN Reason: Protocol Last Admin: 01/19/18 10:56 Dose: Not Given Cefepime HCl (Maxipime 1gm) 1 gm in 100 mls @ 100 mls/hr IVPB Q24H SELWYN PRN Reason: Protocol Stop: 01/21/18 18:01 Last Admin: 01/19/18 17:23 Dose: Not Given Insulin Detemir (Levemir) 20 unit SC ACBD [facility] Last Admin: 01/19/18 17:21 Dose: 20 unit Insulin Human Lispro (Humalog Med) 0 units SC AC SEL[facility]YN PRN Reason: Protocol Last Admin: 01/19/18 16:38 Dose: Not Given Lactobacillus Acidophilus (Bacid Acidophilus) 1 cap PO BID [facility] Last Admin: 01/19/18 17:22 Dose: 1 cap Levalbuterol HCl (Xopenex) 0.63 mg IH [id number] [facility] Last Admin: 01/19/18 13:32 Dose: Not Given Lisinopril (Zestril) 20 mg PO QAM [facility] Last Admin: 01/19/18 10:56 Dose: Not Given Loratadine (Claritin) 10 mg PO DAILY [facility] Last Admin: 01/19/18 10:55 Dose: Not Given Metoclopramide HCl (Reglan) 5 mg IVP ACHS [facility] Last Admin: 01/19/18 17:21 Dose: 5 mg Metolazone (Zaroxolyn) 10 mg PO BID [facility] Last Admin: 01/19/18 17:22 Dose: 10 mg Metoprolol Tartrate (Lopressor) 50 mg PO BRKDIN [facility] Last Admin: 01/19/18 16:39 Dose: Not Given Ondansetron HCl (Zofran Inj) 4 mg IVP Q4H PRN PRN Reason: Nausea/Vomiting Last Admin: 01/14/18 21:02 Dose: 4 mg Pantoprazole Sodium (Protonix Ec Tab) 40 mg PO 0600,1600 [facility] Last Admin: 01/19/18 17:21 Dose: 40 mg Pregabalin (Lyrica) 50 mg PO BID [facility] Last Admin: 01/19/18 17:22 Dose: Not Given Sevelamer HCl (Renagel) 2,400 mg PO ACTID [facility] Last Admin: 01/19/18 17:21 Dose: 2,400 mg Spironolactone (Aldactone) 25 mg PO BID [facility] Last Admin: 01/19/18 17:22 Dose: 25 mg Torsemide (Demadex) 100 mg PO BID [facility] Last Admin: 01/19/18 17:22 Dose: 100 mg - Labs Labs: 01/19/18 06:30 01/19/18 06:30 - Constitutional Appears: Non-toxic, No Acute Distress - Eye Exam Eye Exam: Normal appearance - ENT Exam ENT Exam: Mucous Membranes Moist - Respiratory Exam Respiratory Exam: Clear to Ausculation Bilateral. absent: Respiratory Distress - Cardiovascular Exam Cardiovascular Exam: RRR, +S1, +S2 - GI/Abdominal Exam GI & Abdominal Exam: Soft. absent: Distended, Tenderness - Exam Exam: absent: Bladder Distension - Extremities Exam Additional comments: no leg edema - Neurological Exam Neurological Exam: Alert, Awake - Psychiatric Exam Psychiatric exam: Normal Mood. absent: Agitated - Skin Skin Exam: Warm. absent: Cyanosis Assessment and Plan (1) ESRD (end stage renal disease) on dialysis Assessment & Plan: Stable electrolyte and volume status; HD today per routine; trying to establish new dry weight; Status: Chronic (2) Congestive heart failure Assessment & Plan: Acute systolic CHF exacerbation, resolved; repeat echo not showing systolic dysfunction; continue to maintain euvolemia with diuretics and UF on HD; Status: Acute (3) Pneumonia Assessment & Plan: On cefepime dosed for HD, and doxycycline; given dose of vanco; should check random vanco level tomorrow before re-dosing; Status: Acute (4) Anemia in ESRD (end-stage renal disease) Assessment & Plan: Hgb stable, continuing with IV iron loading and aranesp 100 mcg weekly; Status: Chronic (5) Hypertensive CKD, ESRD on dialysis Assessment & Plan: BP much better controlled, holding clonidine, continue with rest of meds; Status: Chronic (6) Chronic kidney disease-mineral and bone disorder Assessment & Plan: On sevelamer 3 tabs w/ meals, continue, phos controlled; continue hectorol 1 mcg on HD; Status: Chronic
[2018-01-19] MEDS ORDERED: Cefepime 1gm in NS 100ml 1 GM/100 ML BAG IVPB ONE (23:31)
[2018-01-20] MEDS: Levalbuterol 0.63 MG/3 ML Inhal Soln UD IH SCH ×4 (00:38→20:39)
--- NOTE | 2018-01-20 01:42 | CP.PCM.PN ---
Subjective - Date & Time of Evaluation Date of Evaluation: 01/20/18 Time of Evaluation: 01:41 - Subjective Subjective: # 22 angiocath was inserted in right distal forearm. Objective - Vital Signs/Intake and Output Vital Signs (last 24 hours): Temp Pulse Resp BP Pulse Ox 99.1 F 88 20 103/64 99 01/19/18 06:00 01/19/18 16:39 01/19/18 06:00 01/19/18 16:39 01/19/18 06:00 Intake and Output: 01/19/18 01/20/18 18:59 06:59 Intake Total 180 Balance 180 - Medications Medications: Current Medications Acetaminophen (Tylenol 325mg Tab) 650 mg PO Q4 PRN PRN Reason: Fever >100.4 F Last Admin: 01/19/18 23:32 Dose: 650 mg Acetaminophen (Tylenol 650 Mg Supp) 650 mg RC Q4H PRN PRN Reason: Fever >100.4 F Ascorbic Acid (Vitamin C 500 Mg Tab) 500 mg PO DAILY [facility] Last Admin: 01/19/18 10:56 Dose: Not Given Aspirin (Ecotrin) 81 mg PO DAILY [facility] Last Admin: 01/19/18 10:55 Dose: Not Given Atorvastatin Calcium (Lipitor) 20 mg PO HS [facility] Last Admin: 01/19/18 22:50 Dose: 20 mg Clonidine HCl (Catapres) 0.1 mg PO Q8H PRN PRN Reason: Systolic Blood Pressure Clonidine HCl (Catapres) 0.1 mg PO BID [facility] Last Admin: 01/18/18 11:00 Dose: 0.1 mg Clopidogrel Bisulfate (Plavix) 75 mg PO QAM [facility] Last Admin: 01/19/18 10:55 Dose: Not Given Darbepoetin Davonte (Aranesp) 100 mcg IVP WE [facility] Last Admin: 01/19/18 14:15 Dose: 100 mcg Fenofibrate (Tricor) 48 mg PO DAILY [facility] Last Admin: 01/19/18 10:55 Dose: Not Given Heparin Sodium (Porcine) (Heparin) 2,200 units ICA MOWEFR [facility] Last Admin: 01/19/18 14:58 Dose: 2,200 units Heparin Sodium (Porcine) (Heparin) 2,400 units ICV MOWEFR [facility] Last Admin: 01/19/18 14:59 Dose: 2,400 units Doxycycline Hyclate 100 mg/ (Sodium Chloride) 100 mls @ 100 mls/hr IVPB Q12 SELWYN PRN Reason: Protocol Last Admin: 01/19/18 23:03 Dose: 100 mls/hr Cefepime HCl (Maxipime 1gm) 1 gm in 100 mls @ 100 mls/hr IVPB Q24H SELWYN PRN Reason: Protocol Stop: 01/21/18 18:01 Last Admin: 01/19/18 17:23 Dose: Not Given Insulin Detemir (Levemir) 20 unit SC ACBD [facility] Last Admin: 01/19/18 17:21 Dose: 20 unit Insulin Human Lispro (Humalog Med) 0 units SC AC SELWYN PRN Reason: Protocol Last Admin: 01/19/18 16:38 Dose: Not Given Lactobacillus Acidophilus (Bacid Acidophilus) 1 cap PO BID [facility] Last Admin: 01/19/18 17:22 Dose: 1 cap Levalbuterol HCl (Xopenex) 0.63 mg IH [id number] [facility] Last Admin: 01/20/18 00:38 Dose: 0.63 mg Lisinopril (Zestril) 20 mg PO QAM [facility] Last Admin: 01/19/18 10:56 Dose: Not Given Loratadine (Claritin) 10 mg PO DAILY [facility] Last Admin: 01/19/18 10:55 Dose: Not Given Metoclopramide HCl (Reglan) 5 mg IVP ACHS [facility] Last Admin: 01/19/18 23:31 Dose: 5 mg Metolazone (Zaroxolyn) 10 mg PO BID [facility] Last Admin: 01/19/18 17:22 Dose: 10 mg Metoprolol Tartrate (Lopressor) 50 mg PO BRKDIN [facility] Last Admin: 01/19/18 16:39 Dose: Not Given Ondansetron HCl (Zofran Inj) 4 mg IVP Q4H PRN PRN Reason: Nausea/Vomiting Last Admin: 01/14/18 21:02 Dose: 4 mg Pantoprazole Sodium (Protonix Ec Tab) 40 mg PO 0600,1600 [facility] Last Admin: 01/19/18 17:21 Dose: 40 mg Pregabalin (Lyrica) 50 mg PO BID [facility] Last Admin: 01/19/18 17:22 Dose: Not Given Sevelamer HCl (Renagel) 2,400 mg PO ACTID [facility] Last Admin: 01/19/18 17:21 Dose: 2,400 mg Spironolactone (Aldactone) 25 mg PO BID [facility] Last Admin: 01/19/18 17:22 Dose: 25 mg Torsemide (Demadex) 100 mg PO BID [facility] Last Admin: 01/19/18 17:22 Dose: 100 mg - Labs Labs: 01/19/18 06:30 01/19/18 06:30
--- NOTE | 2018-01-20 04:38 | PN ---
DATE: 01/19/2018 SUBJECTIVE: The patient was seen briefly in dialysis. Then patient was seen and examined later in the day in room 569 bed 2. The patient is seen lying in the bed watching TV. The patient is alert, awake, responsive, oriented. According to the patient's nurse, the patient refused lab work, refused antibiotic, refused medications, which the patient has been doing since admission. The patient has been noncompliant with advised medical treatment. The patient refused her IV antibiotics. The patient refused blood drawing. PHYSICAL EXAMINATION VITAL SIGNS: T-max 99.1; heart rate 82, 74, 88; blood pressure 103/64, 92/51, 108/70, 107/59. HEENT: Head examination is normocephalic, atraumatic. Shows pale conjunctivae. Anicteric sclerae. No oropharyngeal lesion. No neck rigidity. CHEST: Kyphosis. Positive right upper chest dialysis catheter. Positive median sternotomy surgical scar. LUNGS: Examination shows questionable decreased breath sound at the bases. CARDIOVASCULAR: Shows S1, S2, regular rhythm. Positive systolic murmur left sternal border, right second intercostal space, left second intercostal space. ABDOMEN: Protuberant, obese. Positive bowel sound. No hepatosplenomegaly noted. No guarding. No rigidity. No rebound tenderness. GENITALIA: Female. RECTAL: Deferred. EXTREMITY: Shows positive left upper extremity maturing fistula. Lower extremity shows trace swelling of the lower extremity. MUSCULOSKELETAL: Shows a body mass index of 37. Cranial nerves II through XII limited. Gait examination is independent. DIAGNOSTICS STUDIES: From 01/19/2018, WBC 5.3, hemoglobin/hematocrit 8.9/26.7, platelet 235. Sodium 137, potassium 4.2, chloride 98, CO2 of 23, anion gap 20, BUN 255, creatinine 8.0; glucose 279, 286, 119, 198, 216, 234; calcium 8.9, phosphorus 5.1, magnesium 1.9. LFTs are normal. Urine drug screen is negative. H. Pylori is negative. HIV, hepatitis A, B, C serologies are negative. Blood cultures so far are negative. The patient's chest x-ray from 01/18/2018 was noted and explained to the patient. The patient's echocardiogram from 01/18/2018 was reviewed and explained to the patient. IMPRESSION AND PLAN 1. Poor compliance with refusal of medications and lab data. 2. Hypertension. 3. Low grade fever. 4. Persistent refractory normocytic anemia with granulocytosis and leukopenia. 5. End-stage renal disease, hemodialysis dependent. 6. Insulin requiring uncontrolled diabetes mellitus with hemoglobin A1c of 11.7 and hyperglycemia. 7. Hypovitaminosis D. 8. Hyperprolactinemia. 9. Secondary hyperparathyroidism. 10. Congestive heart failure with elevated BNP. 11. Proteinuria, glycosuria, microscopic hematuria, bacteriuria. 12. Morbid obesity with elevated body mass index of greater than 37. 13. Right upper chest dialysis catheter. 14. Right lower lobe linear scarring. 15. Cardiomegaly. 16. Coronary artery disease, coronary artery bypass graft. 17. Left ventricular ejection fraction of 44% with mild concentric left ventricular hypertrophy. 18. Moderate mitral annular calcification. 19. Mild tricuspid regurgitation. 20. Pneumonia. 21. Healthcare-associated pneumonia, slow resolving. 22. Diabetic gastroparesis, symptomatic (resolved). 23. Acute exacerbation of congestive heart failure. 24. Hypovitaminosis D. 1. Healthcare-associated pneumonia. 2. Slowly improving right-sided healthcare pneumonia. 3. Right lower lobe linear scarring. 4. Cardiomegaly. 5. History of coronary artery disease, coronary artery bypass graft, and coronary angioplasty. 6. History of myocardial infarction. 7. Left ventricular ejection fraction of 45% to 50%. 8. Morbid obesity. 9. Anemia of chronic disease and chronic kidney disease. 10. Low-grade fever. 11. Transient tachycardia. 12. History of hypertension. 13. Possible gastroenteritis versus gastroparesis. 14. Hyperlipidemia. 15. Hypertension. 16. Hypercholesteremia. 17. Insulin-requiring diabetes mellitus with hyperglycemia. 18. Diabetic gastroparesis. 19. Tachycardia. 20. Diabetic neuropathy. 21. Secondary hyperparathyroidism. 1. Abdominal pain, etiology unclear, questionable acute gastroenteritis versus acute exacerbation of diabetic gastroparesis. 2. Uncontrolled insulin-requiring diabetes mellitus with hyperglycemia and hemoglobin A1c of greater than 11.7. 3. Hypertension. 4. Low grade fever. 5. Transient tachycardia. 6. Morbid obesity with elevated body mass index of 37.3. 7. Leukopenia. 8. Anemia of chronic disease with normocytic anemia. 9. Granulocytosis. 10. Questionable increased anion gap metabolic acidosis. 11. Acute on chronic systolic congestive heart failure with dilated ischemic cardiomyopathy. 12. Hyperprocalcitoninemia. 13. Secondary hyperparathyroidism with elevated PTH of greater than 270. 14. Hypokalemia. 15. Hypovitaminosis D. 16. Elevated fructosamine level of greater than 540. 17. Hyperphosphatemia. 18. Proteinuria, glycosuria, microscopic hematuria, bacteriuria. 19. Nonspecific intraventricular conduction block. 20. Questionable lateral ischemia. 21. End-stage renal disease, hemodialysis dependent three times a week via the right upper chest [place] catheter. 22. Acute decompensated systolic congestive heart failure and possible dilated ischemic cardiomyopathy. 23. Bilateral multilobar healthcare-associated pneumonia. 24. Anemia of chronic kidney disease. 25. Hypertensive chronic kidney disease with end-stage renal disease. 26. Volume and fluid overload. 27. History of myocardial infarction, coronary artery disease, coronary artery bypass graft and history of angioplasty. 28. Poor compliance. 29. Dyslipidemia. 30. Diabetic neuropathy. 31. Sepsis with right lower lobe healthcare-associated pneumonia. 1. Abdominal pain, etiology undetermined. 2. Most likely diabetic gastroparesis, symptomatic with symptoms of abdominal pain. 3. Insulin-requiring diabetes mellitus. 4. End-stage renal disease, hemodialysis requiring 3 times a week. 5. Hyperprocalcitoninemia. 6. Low-grade fever. 7. History of coronary artery disease, coronary artery bypass graft, history of angioplasty, stent placement and myocardial infarction. 8. History of hypertension, hyperlipidemia. 9. History of right heel osteomyelitis. 10. Sepsis with right lower lobe, right middle lobe pneumonia. 11. Poor compliance. 12. Symptomatic diabetic gastroparesis with symptoms of abdominal pain, nausea, vomiting. 13. Volume overload and fluid overload with pulmonary vascular congestion and possible systolic congestive heart failure. 14. End-stage renal disease, hemodialysis dependent. 15. Acute decompensated systolic congestive heart failure. 16. Healthcare-associated pneumonia. 17. Anemia of chronic kidney disease. 18. Hypertensive chronic kidney disease and end-stage renal disease. 19. Sepsis with right lower lobe, right middle lobe pneumonia. 20. Hypertensive cardiovascular disease with nonspecific intraventricular conduction block with left axis deviation and questionable coronary ischemia. 21. Hypertension. 22. Leukopenia. 24. Granulocytosis. 25. Uncontrolled insulin-requiring diabetes mellitus with hemoglobin A1c of 11.7 and fructose level of 546. 26. Secondary hyperparathyroidism with hyperphosphatemia. 27. Hypovitaminosis D. 28. Acute recurrent systolic congestive heart failure with elevated BNP. 29. Proteinuria with microscopic hematuria and bacteriuria. 1. Abdominal pain with nausea, vomiting. Etiology undetermined versus questionable and possible diabetic gastroparesis. 2. Severe noncompliance. 3. Hypertension. 4. Morbid obesity with elevated body mass index of 38. 5. Normocytic anemia with granulocytosis. 6. Questionable increased anion gap metabolic acidosis. 7. End-stage renal disease, hemodialysis dependent. 8. Hyperglycemia. 9. Uncontrolled diabetes mellitus. 10. Possible systolic congestive heart failure with elevated BNP. 11. Left upper extremity arteriovenous fistula placement. 12. End-stage renal disease, hemodialysis dependent three times a week via the right upper chest [place] catheter. 13. History of myocardial infarction, history of coronary artery disease, history of coronary artery bypass graft, history of angioplasty and stent placement. 14. Possible ischemic dilated cardiomyopathy. 15. Proteinuria. 16. Microscopic hematuria and bacteriuria. 17. Oxygen-requiring chronic obstructive pulmonary disease. 18. Acute exacerbation of systolic congestive heart failure. 19. Possible decompensated systolic congestive heart failure with elevated BNP. 20. Anemia of chronic kidney disease. 21. Hypertensive end-stage renal disease. 22. Hypertension. 23. Insulin-requiring diabetes mellitus. 24. Hyperlipidemia. 25. Diabetic neuropathy. 26. Diabetic gastroparesis. 1. Abdominal pain, etiology unclear versus diabetic gastroparesis with symptoms of nausea, vomiting. 2. Atypical chest pain. 3. Morbid obesity with elevated body mass index. 4. Low-grade fever. 5. Tachycardia. 6. Hypertension. 7. Normocytic anemia. 8. Granulocytosis. 9. Increased anion gap metabolic acidosis. 10. End-stage renal disease, hemodialysis dependent. 11. Uncontrolled diabetes mellitus with hyperglycemia. 12. Proteinuria and bacteriuria and microscopic hematuria. 13. Cardiomegaly. 14. Pulmonary vascular congestion. 15. Right lower lobe, right middle lobe atelectasis versus pneumonia and infiltrate. 16. Splenomegaly. 17. Left axis deviation with intraventricular conduction block and lateral coronary ischemia. 18. Status post right upper chest dialysis catheter placement. 19. Possible acute exacerbation of systolic congestive heart failure. 20. Probable diabetic gastroparesis versus gastritis. 21. Uncontrolled diabetes. PLAN: At this time after a lengthy discussion with the patient this evening, the patient has finally agreed to comply with the intravenous antibiotic treatment, which has been ordered and the patient is now agreeable to take the doses today. The patient has been ordered repeat labs. The patient still continues to refuse transfusions. CURRENT CONSULTATIONS: 1. Nephrology. 2. Gastroenterology. 3. Hematology/Oncology. 4. Infectious disease. 5. Cardiology. CURRENT MEDICATIONS: The patient's hydralazine has been stopped at present because of hypotension, Aldactone 25 twice a day. The patient was given a dose of Aranesp 100 mcg x1 dose today. The patient is on Bacid 1 capsule twice a day, clonidine 0.1 mg p.o. every 8 hours p.r.n. and clonidine 0.1 mg twice a day, Claritin 10 mg daily, Demadex 100 mg twice a day, doxycycline 100 mg IV every 12 hours, Ecotrin 81 mg daily, Humalog medium dose sliding scale coverage, IV Venofer 100 mg was given today. The patient is on Levemir 20 units before breakfast, dinner; Lipitor 20 mg at bedtime, Lopressor 50 mg twice a day, Lyrica 50 mg twice a day, cefepime 1 g IV daily, Plavix 75 mg daily, Protonix 40 mg daily, Reglan 5 mg IV push before meals and at bedtime, Renagel 2400 mg three times a day, Tricor 48 mg daily, Tylenol 650 mg p.o. suppository every 4 hours, p.r.n. The patient received a dose of vancomycin 1 g today. The patient is on vitamin C 500 mg daily, Xopenex nebulizer 0.63 mg every 6 hours, Zaroxolyn 10 mg twice a day, Zestril 20 mg daily, Zofran 4 mg IV every 4 hours p.r.n. Chest PT, oxygen ordered, renal diet ordered, out of bed ordered, physical therapy, occupational therapy ordered. Again as mentioned, the patient is now agreeable to take the medications and IV antibiotic as ordered. The patient was advised that she requires another three more days of IV antibiotics and then she can be discharged home. Upon which, the patient now states that she will comply. We will see tomorrow if the patient is still compliant with the treatment. The patient updated about her condition, diagnosis, treatment plan, management plan. Recommendations and test results explained to the patient at length and all questions concerned answered. Dictated and electronically signed, not read. Moses Lira MD MTDD
[2018-01-20 08:19] LABS: BASO # 0.01 K/mm3 (0.0-2.0); BASO % 0.2 % (0.0-3.0); EOS # 0.1 (0.0-0.7); EOS % 1.7 % (1.5-5.0); GRAN # 4.36 (1.4-6.5); GRAN % 67.1 % (50.0-68.0); HEMOGLOBIN 10.3 g/dL (12.0-16.0); LYMPH # 1.6 (1.2-3.4); LYMPH % 24.7 % (22.0-35.0); MEAN CELL VOLUME 97.2 fl (80.0-105.0); MEAN CORPUSCULAR HEMOGLOBIN 32.4 pg (25.0-35.0); MEAN CORPUSCULAR HGB CONC 33.3 g/dl (31.0-37.0); MEAN PLATELET VOLUME 9.1 fl (7.0-11.0); MONO # 0.4 (0.1-0.6); MONO % 6.3 % (1.0-6.0); RBC 3.18 10^6/uL (3.5-6.1); RED CELL DISTRIBUTION WIDTH 13.8 % (11.5-14.5); WHITE BLOOD COUNT 6.5 10^3/ul (4.5-11.0)
[2018-01-20] MEDS: Insulin Detemir 100 units/ml Vial (Levemir) SC SCH ×2 (08:31→17:04)
[2018-01-20] MEDS: Insulin Lispro (humaLOG) MEDIUM Coverage SC SCH ×3 (08:31→17:04)
[2018-01-20 08:58] LABS: ALB/GLOB RATIO 1.2 (1.1-1.8); ALBUMIN 4.3 g/dL (3.0-4.8); BILIRUBIN,DIRECT 0.3 mg/dL (0.0-0.4); CALCIUM 9.6 mg/dL (8.4-10.5)
[2018-01-20] MEDS: Lactobacillus Acidophilus 500 MU Cap PO SCH ×2 (09:50→17:05)
[2018-01-20] MEDS: metOLazone 5 MG TAB PO SCH ×2 (09:50→10:01)
[2018-01-20] MEDS ORDERED: metOLazone 5 MG TAB PO SCH (11:00)
--- NOTE | 2018-01-20 11:38 | CP.PCM.PN ---
<Mara Brennan - Last Filed: 01/20/18 11:47> Subjective - Date & Time of Evaluation Date of Evaluation: 01/20/18 Time of Evaluation: 11:37 - Subjective Subjective: Medicine Progress Note - Dr Lira Service: Patient seen and examined at bedside. Per nursing no acute events overnight. Patient recieved dose of antibiotics and IV iron last night. Offers no complaints today. Denies headaches, dizziness, cp, palpitations, sob, abdominal pain, urinary symptoms. Objective - Vital Signs/Intake and Output Vital Signs (last 24 hours): Temp Pulse Resp BP Pulse Ox 99.1 F 86 20 98/59 L 99 01/19/18 06:00 01/20/18 10:01 01/19/18 06:00 01/20/18 10:01 01/19/18 06:00 Intake and Output: 01/20/18 01/20/18 06:59 18:59 Intake Total 180 Balance 180 - Medications Medications: Current Medications Acetaminophen (Tylenol 325mg Tab) 650 mg PO Q4 PRN PRN Reason: Fever >100.4 F Last Admin: 01/19/18 23:32 Dose: 650 mg Acetaminophen (Tylenol 650 Mg Supp) 650 mg RC Q4H PRN PRN Reason: Fever >100.4 F Ascorbic Acid (Vitamin C 500 Mg Tab) 500 mg PO DAILY [facility] Last Admin: 01/20/18 09:50 Dose: 500 mg Aspirin (Ecotrin) 81 mg PO DAILY [facility] Last Admin: 01/20/18 09:50 Dose: 81 mg Atorvastatin Calcium (Lipitor) 20 mg PO HS [facility] Last Admin: 01/19/18 22:50 Dose: 20 mg Clonidine HCl (Catapres) 0.1 mg PO Q8H PRN PRN Reason: Systolic Blood Pressure Clonidine HCl (Catapres) 0.1 mg PO BID [facility] Last Admin: 01/18/18 11:00 Dose: 0.1 mg Clopidogrel Bisulfate (Plavix) 75 mg PO QAM [facility] Last Admin: 01/20/18 09:50 Dose: 75 mg Darbepoetin [place] (Aranesp) 100 mcg IVP WE [facility] Last Admin: 01/19/18 14:15 Dose: 100 mcg Doxycycline Hyclate (Doryx) 100 mg PO Q12 [facility] Stop: 01/24/18 06:44 Fenofibrate (Tricor) 48 mg PO DAILY [facility] Last Admin: 01/20/18 10:48 Dose: 48 mg Heparin Sodium (Porcine) (Heparin) 2,200 units ICA MOWEFR [facility] Last Admin: 01/19/18 14:58 Dose: 2,200 units Heparin Sodium (Porcine) (Heparin) 2,400 units ICV MOWEFR [facility] Last Admin: 01/19/18 14:59 Dose: 2,400 units Cefepime HCl (Maxipime 1gm) 1 gm in 100 mls @ 100 mls/hr IVPB Q24H [facility] PRN Reason: Protocol Stop: 01/21/18 18:01 Last Admin: 01/19/18 17:23 Dose: Not Given Insulin Detemir (Levemir) 20 unit SC ACBD [facility] Last Admin: 01/20/18 08:31 Dose: 20 unit Insulin Human Lispro (Humalog Med) 0 units SC AC [facility] PRN Reason: Protocol Last Admin: 01/20/18 08:31 Dose: 3 units Lactobacillus Acidophilus (Bacid Acidophilus) 1 cap PO BID [facility] Last Admin: 01/20/18 09:50 Dose: 1 cap Levalbuterol HCl (Xopenex) 0.63 mg IH [id number] [facility] Last Admin: 01/20/18 07:46 Dose: 0.63 mg Lisinopril (Zestril) 20 mg PO QAM [facility] Loratadine (Claritin) 10 mg PO DAILY [facility] Last Admin: 01/20/18 09:50 Dose: 10 mg Metoclopramide HCl (Reglan) 5 mg IVP ACHS [facility] Last Admin: 01/20/18 08:41 Dose: Not Given Metolazone (Zaroxolyn) 10 mg PO BID [facility] Metoprolol Tartrate (Lopressor) 50 mg PO BRKDIN [facility] Last Admin: 01/20/18 08:31 Dose: 50 mg Ondansetron HCl (Zofran Inj) 4 mg IVP Q4H PRN PRN Reason: Nausea/Vomiting Last Admin: 01/14/18 21:02 Dose: 4 mg Pantoprazole Sodium (Protonix Ec Tab) 40 mg PO 0600,1600 [facility] Last Admin: 01/19/18 17:21 Dose: 40 mg Pregabalin (Lyrica) 50 mg PO BID [facility] Last Admin: 01/20/18 09:50 Dose: 50 mg Sevelamer HCl (Renagel) 2,400 mg PO ACTID [facility] Last Admin: 01/20/18 08:32 Dose: 2,400 mg Spironolactone (Aldactone) 25 mg PO BID [facility] Torsemide (Demadex) 100 mg PO BID [facility] - Labs Labs: 01/20/18 08:10 01/20/18 08:10 - Additional Findings Additional findings: - Additional Findings Additional findings: - Constitutional Appears: No Acute Distress, Older Than Stated Age, Chronically Ill, Other ( Morbidly obese.) - Head Exam Head Exam: ATRAUMATIC, NORMOCEPHALIC - Eye Exam Eye Exam: EOMI, Normal appearance. absent: Scleral icterus Pupil Exam: NORMAL ACCOMODATION - ENT Exam ENT Exam: Mucous Membranes Moist - Neck Exam Neck exam: Positive for: Normal Inspection - Respiratory Exam Respiratory Exam: Decreased Breath Sounds (at the bases), NORMAL BREATHING PATTERN. - Cardiovascular Exam Cardiovascular Exam: REGULAR RHYTHM, +S1, +S2. - GI/Abdominal Exam GI & Abdominal Exam: Normal Bowel Sounds, Soft. Additional comments: + Obese abdomen. - Extremities Exam Extremities exam: Positive for: pedal edema (+ 2), pedal pulses present. Negative for: normal capillary refill, tenderness - Back Exam Back exam: NORMAL INSPECTION - Neurological Exam Neurological exam: Alert, Oriented x3 - Psychiatric Exam Psychiatric exam: Normal Affect, Normal Mood - Skin Skin Exam: Dry, Normal Color, Warm Additional comments: + old healed wound on the right foot. No signs of acute infection. Right upper chest with HD port with clean dressing, no surrounding erythema noted left antecubital fossa with AV fistula Assessment and Plan - Assessment and Plan (Free Text) Assessment: Patient is a 47 y/o with PMHx of morbidly obese BMI 48, htn, hld, COPD on 2 liters nasal cannula, IDDM, ESRD ( HD M, W,F), CAD s/p CABG and stents, systolic CHF presenting with lower quadrant abdominal pain for 1 day, along with nausea and vomiting. Plan: 1) Abdominal pain along with nausea and vomiting likely diabetic gastroparesis ( resolved) - CT abdomen and pelvis with possible pneumonia - No acute findings on CT - Patient had gap of 17 and glucose of 456 on admission, s/p stat dose of 10 units insulin - UA with no ketones - Diabetes control as stated below - Reglan and zofran prn for nausea/vomiting 2) Worsening dyspnea due to CHF exacerbation, RLL/RML pneumonia - Patient also has underlying copd, on home oxygen - will resume home oxygen - + elevated pro bnp on admission, troponin at baseline - No acute ischemic changes on EKG - Chest x-ray with vascular congestion and cardiomegaly - CT chest with lower lobe infiltration and atelectasis. - Antibiotics: Cefepime and doxycycline; continue Bacid 1 capsule BID - Per ID patient needs to complete 4-7 days of IV antibiotics - Procal 0.66, Urine legionella negative - Continue Chest PT, ISS use, 2L continuous humidified oxygen - Continue torsemide, aldactone and metolazone as per nephro - Echocardiogram showed EF 40-45% which is unchanged from prior study - CXR PA/LA showed no acute findings - Cardiology consulted - ID consulted 3) Acute on chronic anemia - Patient for possible renal transplant, will hold transfusing at this time - Recieved IV Venofer x 1 dose last night - No signs of active bleeding noted - On aranesp, continue ascorbic acid 4) Uncontrolled DM - Will continue with long acting and basal insulin - Continue Moderate dose ISS - Continue Levemir 20 units ACBD - Renal and carb controlled diet - hgb a1c 11.7 - Diabetic education 5) ESRD- on Hemodialysis MWF - Nephro on consult, help appreciated - Continue renagel - Patient is dialysis this morning 6) Vitamin D Deficiency - Ergocalciferol 1 tab PO Q7D 7) H/O HLD- on lipitor and tricor 8) H/O HTN- on clonidine (on hold), hydralazine, lisinopril 9) CAD s/o CABG and stents- on plavix, asa, and lopressor. 10) Peripheral neuropathy- continue with Lyrica 11) DVT and gi prophylaxis: Protonix, heparin sc/VTE device. Plan discussed with Dr Lira. Mara Brennan DO PGY-1 <Moses Lira - Last Filed: 01/24/18 17:31> Objective - Vital Signs/Intake and Output Vital Signs (last 24 hours): Temp Pulse Resp BP Pulse Ox 99 F 85 20 102/50 L 90 L 01/21/18 06:00 01/21/18 09:00 01/21/18 06:00 01/21/18 09:00 01/21/18 06:00 - Labs Labs: 01/21/18 10:30 01/21/18 10:30 Attending/Attestation - Attestation I have personally seen and examined this patient.: Yes I have fully participated in the care of the patient.: Yes I have reviewed all pertinent clinical information, including history, physical exam and plan: Yes Notes (Text): Please see/read my dictated notes.
[2018-01-20 12:34] LABS: ALBUMIN (PEP) 3.6 g/dL (3.8-4.8); ALPHA-1-GLOBULIN (PEP) 0.3 g/dL (0.2-0.3)
--- NOTE | 2018-01-20 12:57 | CP.PCM.PN ---
Subjective - Date & Time of Evaluation Date of Evaluation: 01/19/18 Time of Evaluation: 13:00 - Subjective Subjective: No complaints. Objective - Vital Signs/Intake and Output Vital Signs (last 24 hours): Temp Pulse Resp BP Pulse Ox 99.1 F 86 20 98/59 L 99 01/19/18 06:00 01/20/18 10:01 01/19/18 06:00 01/20/18 10:01 01/19/18 06:00 Intake and Output: 01/20/18 01/20/18 06:59 18:59 Intake Total 180 Balance 180 - Medications Medications: Current Medications Acetaminophen (Tylenol 325mg Tab) 650 mg PO Q4 PRN PRN Reason: Fever >100.4 F Last Admin: 01/19/18 23:32 Dose: 650 mg Acetaminophen (Tylenol 650 Mg Supp) 650 mg RC Q4H PRN PRN Reason: Fever >100.4 F Ascorbic Acid (Vitamin C 500 Mg Tab) 500 mg PO DAILY [facility] Last Admin: 01/20/18 09:50 Dose: 500 mg Aspirin (Ecotrin) 81 mg PO DAILY [facility] Last Admin: 01/20/18 09:50 Dose: 81 mg Atorvastatin Calcium (Lipitor) 20 mg PO HS [facility] Last Admin: 01/19/18 22:50 Dose: 20 mg Clonidine HCl (Catapres) 0.1 mg PO Q8H PRN PRN Reason: Systolic Blood Pressure Clonidine HCl (Catapres) 0.1 mg PO BID [facility] Last Admin: 01/18/18 11:00 Dose: 0.1 mg Clopidogrel Bisulfate (Plavix) 75 mg PO QAM [facility] Last Admin: 01/20/18 09:50 Dose: 75 mg Darbepoetin Davonte (Aranesp) 100 mcg IVP WE [facility] Last Admin: 01/19/18 14:15 Dose: 100 mcg Doxycycline Hyclate (Doryx) 100 mg PO Q12 [facility] Stop: 01/24/18 06:44 Fenofibrate (Tricor) 48 mg PO DAILY [facility] Last Admin: 01/20/18 10:48 Dose: 48 mg Heparin Sodium (Porcine) (Heparin) 2,200 units ICA MOWEFR [facility] Last Admin: 01/19/18 14:58 Dose: 2,200 units Heparin Sodium (Porcine) (Heparin) 2,400 units ICV MOWEFR [facility] Last Admin: 01/19/18 14:59 Dose: 2,400 units Cefepime HCl (Maxipime 1gm) 1 gm in 100 mls @ 100 mls/hr IVPB Q24H [facility] PRN Reason: Protocol Stop: 01/21/18 18:01 Last Admin: 01/19/18 17:23 Dose: Not Given Insulin Detemir (Levemir) 20 unit SC ACBD [facility] Last Admin: 01/20/18 08:31 Dose: 20 unit Insulin Human Lispro (Humalog Med) 0 units SC AC [facility] PRN Reason: Protocol Last Admin: 01/20/18 12:13 Dose: 7 units Lactobacillus Acidophilus (Bacid Acidophilus) 1 cap PO BID [facility] Last Admin: 01/20/18 09:50 Dose: 1 cap Levalbuterol HCl (Xopenex) 0.63 mg IH [id number] [facility] Last Admin: 01/20/18 07:46 Dose: 0.63 mg Lisinopril (Zestril) 20 mg PO QAM [facility] Loratadine (Claritin) 10 mg PO DAILY [facility] Last Admin: 01/20/18 09:50 Dose: 10 mg Metoclopramide HCl (Reglan) 5 mg IVP ACHS [facility] Last Admin: 01/20/18 12:14 Dose: Not Given Metolazone (Zaroxolyn) 10 mg PO BID [facility] Metoprolol Tartrate (Lopressor) 50 mg PO BRKDIN [facility] Last Admin: 01/20/18 08:31 Dose: 50 mg Ondansetron HCl (Zofran Inj) 4 mg IVP Q4H PRN PRN Reason: Nausea/Vomiting Last Admin: 01/14/18 21:02 Dose: 4 mg Pantoprazole Sodium (Protonix Ec Tab) 40 mg PO 0600,1600 [facility] Last Admin: 01/19/18 17:21 Dose: 40 mg Pregabalin (Lyrica) 50 mg PO BID [facility] Last Admin: 01/20/18 09:50 Dose: 50 mg Sevelamer HCl (Renagel) 2,400 mg PO ACTID [facility] Last Admin: 01/20/18 12:13 Dose: 2,400 mg Spironolactone (Aldactone) 25 mg PO BID [facility] Torsemide (Demadex) 100 mg PO BID [facility] - Labs Labs: 01/20/18 08:10 01/20/18 08:10 - Head Exam Head Exam: ATRAUMATIC - Eye Exam Eye Exam: Normal appearance - ENT Exam ENT Exam: Mucous Membranes Dry - Respiratory Exam Respiratory Exam: NORMAL BREATHING PATTERN - Cardiovascular Exam Cardiovascular Exam: +S1, +S2 - GI/Abdominal Exam GI & Abdominal Exam: Normal Bowel Sounds Assessment and Plan (1) Anemia Assessment & Plan: hypoproliferative erythroid response likely anemia of CKD; erythropoietin supplementation per renal monoclonal protein w/u pending f/u FOBT Status: Acute
--- NOTE | 2018-01-20 13:30 | PN ---
DATE: 01/20/2018 CARDIOLOGY FOLLOWUP SUBJECTIVE: The patient is comfortable in bed. No more shortness of breath. OBJECTIVE: VITAL SIGNS: Blood pressure is 98/60, heart rate is in the 80s. NECK: Negative JVD. LUNGS: Without rales. HEART: Reveal S1, S2. EXTREMITIES: Without edema. DATA: Hemoglobin is 10.3. Chemistries: BUN and creatinine is 31 and 5.7. IMPRESSION: 1. Resolution of congestive heart failure. 2. End-stage renal disease. 3. Dilated cardiomyopathy. 4. Left ventricular hypertrophy. 5. Coronary artery disease. Given these findings, the patient is doing much better after dialysis. There is resolution of CHF. Austin Markham MD
--- NOTE | 2018-01-20 14:49 | CP.PCM.PN ---
Subjective - Date & Time of Evaluation Date of Evaluation: 01/20/18 Time of Evaluation: 11:00 - Subjective Subjective: Comfortable, no fevers. Objective - Vital Signs/Intake and Output Vital Signs (last 24 hours): Temp Pulse Resp BP Pulse Ox 99.1 F 86 20 98/59 L 99 01/19/18 06:00 01/20/18 10:01 01/19/18 06:00 01/20/18 10:01 01/19/18 06:00 Intake and Output: 01/20/18 01/20/18 06:59 18:59 Intake Total 180 480 Balance 180 480 - Medications Medications: Current Medications Acetaminophen (Tylenol 325mg Tab) 650 mg PO Q4 PRN PRN Reason: Fever >100.4 F Last Admin: 01/19/18 23:32 Dose: 650 mg Acetaminophen (Tylenol 650 Mg Supp) 650 mg RC Q4H PRN PRN Reason: Fever >100.4 F Ascorbic Acid (Vitamin C 500 Mg Tab) 500 mg PO DAILY [facility] Last Admin: 01/20/18 09:50 Dose: 500 mg Aspirin (Ecotrin) 81 mg PO DAILY [facility] Last Admin: 01/20/18 09:50 Dose: 81 mg Atorvastatin Calcium (Lipitor) 20 mg PO HS [facility] Last Admin: 01/19/18 22:50 Dose: 20 mg Clonidine HCl (Catapres) 0.1 mg PO Q8H PRN PRN Reason: Systolic Blood Pressure Clonidine HCl (Catapres) 0.1 mg PO BID [facility] Last Admin: 01/18/18 11:00 Dose: 0.1 mg Clopidogrel Bisulfate (Plavix) 75 mg PO QAM [facility] Last Admin: 01/20/18 09:50 Dose: 75 mg Darbepoetin Davonte (Aranesp) 100 mcg IVP WE [facility] Last Admin: 01/19/18 14:15 Dose: 100 mcg Doxycycline Hyclate (Doryx) 100 mg PO Q12 [facility] Stop: 01/24/18 06:44 Fenofibrate (Tricor) 48 mg PO DAILY [facility] Last Admin: 01/20/18 10:48 Dose: 48 mg Heparin Sodium (Porcine) (Heparin) 2,200 units ICA MOWEFR [facility] Last Admin: 01/19/18 14:58 Dose: 2,200 units Heparin Sodium (Porcine) (Heparin) 2,400 units ICV MOWEFR [facility] Last Admin: 01/19/18 14:59 Dose: 2,400 units Cefepime HCl (Maxipime 1gm) 1 gm in 100 mls @ 100 mls/hr IVPB Q24H [facility] PRN Reason: Protocol Stop: 01/21/18 18:01 Last Admin: 01/19/18 17:23 Dose: Not Given Insulin Detemir (Levemir) 20 unit SC ACBD [facility] Last Admin: 01/20/18 08:31 Dose: 20 unit Insulin Human Lispro (Humalog Med) 0 units SC AC [facility] PRN Reason: Protocol Last Admin: 01/20/18 12:13 Dose: 7 units Lactobacillus Acidophilus (Bacid Acidophilus) 1 cap PO BID [facility] Last Admin: 01/20/18 09:50 Dose: 1 cap Levalbuterol HCl (Xopenex) 0.63 mg IH [id number] [facility] Last Admin: 01/20/18 14:26 Dose: 0.63 mg Lisinopril (Zestril) 20 mg PO QAM [facility] Loratadine (Claritin) 10 mg PO DAILY [facility] Last Admin: 01/20/18 09:50 Dose: 10 mg Metoclopramide HCl (Reglan) 5 mg IVP ACHS [facility] Last Admin: 01/20/18 12:14 Dose: Not Given Metolazone (Zaroxolyn) 10 mg PO BID [facility] Metoprolol Tartrate (Lopressor) 50 mg PO BRKDIN [facility] Last Admin: 01/20/18 08:31 Dose: 50 mg Ondansetron HCl (Zofran Inj) 4 mg IVP Q4H PRN PRN Reason: Nausea/Vomiting Last Admin: 01/14/18 21:02 Dose: 4 mg Pantoprazole Sodium (Protonix Ec Tab) 40 mg PO 0600,1600 [facility] Last Admin: 01/19/18 17:21 Dose: 40 mg Pregabalin (Lyrica) 50 mg PO BID [facility] Last Admin: 01/20/18 09:50 Dose: 50 mg Sevelamer HCl (Renagel) 2,400 mg PO ACTID [facility] Last Admin: 01/20/18 12:13 Dose: 2,400 mg Spironolactone (Aldactone) 25 mg PO BID [facility] Torsemide (Demadex) 100 mg PO BID [facility] - Labs Labs: 01/20/18 08:10 01/20/18 08:10 - Constitutional Appears: No Acute Distress, Chronically Ill - Head Exam Head Exam: NORMAL INSPECTION - Respiratory Exam Respiratory Exam: Decreased Breath Sounds - Cardiovascular Exam Cardiovascular Exam: +S1, +S2 - GI/Abdominal Exam GI & Abdominal Exam: Soft. absent: Tenderness Assessment and Plan - Assessment and Plan (Free Text) Plan: Assessment right sided HCAP, slowly improving history of right foot skin and skin structure infection with Klebsiella and E. faecalis history of drug-related maculopapular rash, probably related to morphine HTN DM CAD S/P CABG chronic renal failure chronic foot ulcer on the left dyslipidemia COPD morbid obesity with BMI 48 chronic renal failure Plan continue intermittent Vancomycin and Cefepime day 5 to complete 4-7 days of therapy
[2018-01-20] MEDS: Pantoprazole 40 mg EC Tab PO SCH (17:05)
[2018-01-20] MEDS: Cefepime 1gm in NS 100ml 1 GM/100 ML BAG IVPB SCH (17:06)
--- NOTE | 2018-01-20 23:30 | CP.PCM.PN ---
Objective - Vital Signs/Intake and Output Vital Signs (last 24 hours): Temp Pulse Resp BP Pulse Ox 97.9 F 80 20 112/67 97 01/20/18 14:00 01/20/18 14:00 01/20/18 14:00 01/20/18 17:06 01/20/18 14:00 Intake and Output: 01/20/18 01/21/18 18:59 06:59 Intake Total 480 120 Output Total 100 Balance 480 20 - Medications Medications: Current Medications Acetaminophen (Tylenol 325mg Tab) 650 mg PO Q4 PRN PRN Reason: Fever >100.4 F Last Admin: 01/19/18 23:32 Dose: 650 mg Acetaminophen (Tylenol 650 Mg Supp) 650 mg RC Q4H PRN PRN Reason: Fever >100.4 F Ascorbic Acid (Vitamin C 500 Mg Tab) 500 mg PO DAILY [facility] Last Admin: 01/20/18 09:50 Dose: 500 mg Aspirin (Ecotrin) 81 mg PO DAILY [facility] Last Admin: 01/20/18 09:50 Dose: 81 mg Atorvastatin Calcium (Lipitor) 20 mg PO HS [facility] Last Admin: 01/20/18 21:50 Dose: 20 mg Clonidine HCl (Catapres) 0.1 mg PO Q8H PRN PRN Reason: Systolic Blood Pressure Clopidogrel Bisulfate (Plavix) 75 mg PO QAM [facility] Last Admin: 01/20/18 09:50 Dose: 75 mg Darbepoetin Davonte (Aranesp) 100 mcg IVP WE [facility] Last Admin: 01/19/18 14:15 Dose: 100 mcg Doxycycline Hyclate (Doryx) 100 mg PO Q12 [facility] Stop: 01/24/18 06:44 Last Admin: 01/20/18 21:49 Dose: 100 mg Fenofibrate (Tricor) 48 mg PO DAILY [facility] Last Admin: 01/20/18 10:48 Dose: 48 mg Heparin Sodium (Porcine) (Heparin) 2,200 units ICA MOWEFR [facility] Last Admin: 01/19/18 14:58 Dose: 2,200 units Heparin Sodium (Porcine) (Heparin) 2,400 units ICV MOWEFR [facility] Last Admin: 01/19/18 14:59 Dose: 2,400 units Cefepime HCl (Maxipime 1gm) 1 gm in 100 mls @ 100 mls/hr IVPB Q24H [facility] PRN Reason: Protocol Stop: 01/21/18 18:01 Last Admin: 01/20/18 17:06 Dose: 100 mls/hr Insulin Detemir (Levemir) 20 unit SC ACBD [facility] Last Admin: 01/20/18 17:04 Dose: 20 unit Insulin Human Lispro (Humalog Med) 0 units SC AC [facility] PRN Reason: Protocol Last Admin: 01/20/18 17:04 Dose: 1 units Lactobacillus Acidophilus (Bacid Acidophilus) 1 cap PO BID [facility] Last Admin: 01/20/18 17:05 Dose: 1 cap Levalbuterol HCl (Xopenex) 0.63 mg IH [id number] [facility] Last Admin: 01/20/18 20:39 Dose: 0.63 mg Lisinopril (Zestril) 20 mg PO QAM [facility] Loratadine (Claritin) 10 mg PO DAILY [facility] Last Admin: 01/20/18 09:50 Dose: 10 mg Metoclopramide HCl (Reglan) 5 mg IVP ACHS [facility] Last Admin: 01/20/18 21:50 Dose: 5 mg Metolazone (Zaroxolyn) 10 mg PO BID [facility] Last Admin: 01/20/18 17:06 Dose: 10 mg Metoprolol Tartrate (Lopressor) 50 mg PO BRKDIN [facility] Last Admin: 01/20/18 17:06 Dose: Not Given Ondansetron HCl (Zofran Inj) 4 mg IVP Q4H PRN PRN Reason: Nausea/Vomiting Last Admin: 01/14/18 21:02 Dose: 4 mg Pantoprazole Sodium (Protonix Ec Tab) 40 mg PO 0600,1600 [facility] Last Admin: 01/20/18 17:05 Dose: 40 mg Pregabalin (Lyrica) 50 mg PO BID [facility] Last Admin: 01/20/18 17:06 Dose: 50 mg Sevelamer HCl (Renagel) 2,400 mg PO ACTID [facility] Last Admin: 01/20/18 17:05 Dose: 2,400 mg Torsemide (Demadex) 100 mg PO BID [facility] Last Admin: 01/20/18 17:05 Dose: 100 mg - Labs Labs: 01/20/18 08:10 01/20/18 08:10 Assessment and Plan (1) ESRD (end stage renal disease) on dialysis Status: Chronic (2) Congestive heart failure Status: Acute (3) Pneumonia Status: Acute (4) Anemia in ESRD (end-stage renal disease) Status: Chronic (5) Hypertensive CKD, ESRD on dialysis Status: Chronic (6) Chronic kidney disease-mineral and bone disorder Status: Chronic
[2018-01-21] MEDS: Levalbuterol 0.63 MG/3 ML Inhal Soln UD IH SCH ×3 (01:22→13:35)
[2018-01-21] MEDS: Pantoprazole 40 mg EC Tab PO SCH (05:38)
--- NOTE | 2018-01-21 05:50 | PN ---
DATE: 01/20/2018 SUBJECTIVE: The patient is seen in room 569, bed 2. The patient is today out of bed to chair, sitting up. The patient states that she is feeling significantly better and awake, responsive, with no abdominal pain, nausea, diarrhea, no shortness of breath, no coughing. The patient appears to be more compliant and cooperative today. OBJECTIVE: VITAL SIGNS: T-max 99.1-97.9, pulse 80, 86, blood pressure was found to be running low at 98/59, 110/70, 103/64, 92/51, respiratory rate 20, O2 sat 97%. HEENT: Head examination normocephalic, atraumatic. HEENT examination shows pinkish pale conjunctivae, anicteric sclerae. No oropharyngeal lesion. No neck rigidity. CHEST: Examination shows a positive right upper chest dialysis catheter. Also shows median sternotomy surgical scar. LUNG: Examination shows occasional rhonchi posteriorly at the bases. CARDIOVASCULAR: Shows S1, S2, regular rhythm. Positive systolic murmur in the left sternal border, right second intercostal space, left second intercostal space. ABDOMEN: Soft. Positive bowel sounds. No guarding. No rigidity. No rebound tenderness. No hepatosplenomegaly noted. No epigastric periumbilical tenderness. GENITALIA: Female. RECTAL: Examination deferred. EXTREMITIES: Shows positive left upper extremity AV fistula, positive thrill. MUSCULOSKELETAL: Examination shows a body mass index of 37. NEUROLOGIC: Cranial nerves II-XII intact. Gait examination is independent. VASCULAR: Palpable pulses. PSYCHIATRIC: Negative. DIAGNOSTIC DATA: On January 20; WBC 6.5, hemoglobin/hematocrit 10.3/31, platelets 265. Sodium 140, potassium 4.0, chloride 97, CO2 of 28, anion gap 20, BUN 31, creatinine 5.7, GFR 10, glucose 179, 307, 208, 231, 286, 119, calcium 9.6, phosphorous 4.9, magnesium 2.0. LFTs are normal. 24-hour urine volume is 350. Serum immunofixation, blood cultures no growth. Chest x-ray from yesterday was reviewed. IMPRESSION AND PLAN: 1. Healthcare-associated pneumonia (resolving). 2. Severe symptomatic diabetic gastroparesis. 3. Low-grade fever. 4. Hypotension. 5. Normocytic anemia with decreasing hemoglobin. 6. Uncontrolled insulin-requiring diabetes mellitus with hemoglobin A1c of greater than 11.7. 7. Hyperglycemia. 8. Iron deficiency. 9. Secondary hyperparathyroidism with elevated PTH of 278 and hyperphosphatemia. 10. Hyperprolactinemia. 11. Hyperglycemia with uncontrolled diabetes mellitus. 12. Hyperfructosemia with uncontrolled diabetes. 13. Proteinuria, microscopic hematuria. 14. History of coronary artery disease, coronary artery bypass graft, history of myocardial infarction, history of angioplasty and stent placement. 15. End-stage renal disease, hemodialysis dependent via the right upper chest [place] catheter. 16. Hypo-proliferative erythroid response with anemia of chronic kidney disease. 17. Dyslipidemia. 1. Poor compliance with refusal of medications and lab data. 2. Hypertension. 3. Low grade fever. 4. Persistent refractory normocytic anemia with granulocytosis and leukopenia. 5. End-stage renal disease, hemodialysis dependent. 6. Insulin requiring uncontrolled diabetes mellitus with hemoglobin A1c of 11.7 and hyperglycemia. 7. Hypovitaminosis D. 8. Hyperprolactinemia. 9. Secondary hyperparathyroidism. 10. Congestive heart failure with elevated BNP. 11. Proteinuria, glycosuria, microscopic hematuria, bacteriuria. 12. Morbid obesity with elevated body mass index of greater than 37. 13. Right upper chest dialysis catheter. 14. Right lower lobe linear scarring. 15. Cardiomegaly. 16. Coronary artery disease, coronary artery bypass graft. 17. Left ventricular ejection fraction of 44% with mild concentric left ventricular hypertrophy. 18. Moderate mitral annular calcification. 19. Mild tricuspid regurgitation. 20. Pneumonia. 21. Healthcare-associated pneumonia, slow resolving. 22. Diabetic gastroparesis, symptomatic (resolved). 23. Acute exacerbation of congestive heart failure. 24. Hypovitaminosis D. 1. Healthcare-associated pneumonia. 2. Slowly improving right-sided healthcare pneumonia. 3. Right lower lobe linear scarring. 4. Cardiomegaly. 5. History of coronary artery disease, coronary artery bypass graft, and coronary angioplasty. 6. History of myocardial infarction. 7. Left ventricular ejection fraction of 45% to 50%. 8. Morbid obesity. 9. Anemia of chronic disease and chronic kidney disease. 10. Low-grade fever. 11. Transient tachycardia. 12. History of hypertension. 13. Possible gastroenteritis versus gastroparesis. 14. Hyperlipidemia. 15. Hypertension. 16. Hypercholesteremia. 17. Insulin-requiring diabetes mellitus with hyperglycemia. 18. Diabetic gastroparesis. 19. Tachycardia. 20. Diabetic neuropathy. 21. Secondary hyperparathyroidism. 1. Abdominal pain, etiology unclear, questionable acute gastroenteritis versus acute exacerbation of diabetic gastroparesis. 2. Uncontrolled insulin-requiring diabetes mellitus with hyperglycemia and hemoglobin A1c of greater than 11.7. 3. Hypertension. 4. Low grade fever. 5. Transient tachycardia. 6. Morbid obesity with elevated body mass index of 37.3. 7. Leukopenia. 8. Anemia of chronic disease with normocytic anemia. 9. Granulocytosis. 10. Questionable increased anion gap metabolic acidosis. 11. Acute on chronic systolic congestive heart failure with dilated ischemic cardiomyopathy. 12. Hyperprocalcitoninemia. 13. Secondary hyperparathyroidism with elevated PTH of greater than 270. 14. Hypokalemia. 15. Hypovitaminosis D. 16. Elevated fructosamine level of greater than 540. 17. Hyperphosphatemia. 18. Proteinuria, glycosuria, microscopic hematuria, bacteriuria. 19. Nonspecific intraventricular conduction block. 20. Questionable lateral ischemia. 21. End-stage renal disease, hemodialysis dependent three times a week via the right upper chest [place] catheter. 22. Acute decompensated systolic congestive heart failure and possible dilated ischemic cardiomyopathy. 23. Bilateral multilobar healthcare-associated pneumonia. 24. Anemia of chronic kidney disease. 25. Hypertensive chronic kidney disease with end-stage renal disease. 26. Volume and fluid overload. 27. History of myocardial infarction, coronary artery disease, coronary artery bypass graft and history of angioplasty. 28. Poor compliance. 29. Dyslipidemia. 30. Diabetic neuropathy. 31. Sepsis with right lower lobe healthcare-associated pneumonia. 1. Abdominal pain, etiology undetermined. 2. Most likely diabetic gastroparesis, symptomatic with symptoms of abdominal pain. 3. Insulin-requiring diabetes mellitus. 4. End-stage renal disease, hemodialysis requiring 3 times a week. 5. Hyperprocalcitoninemia. 6. Low-grade fever. 7. History of coronary artery disease, coronary artery bypass graft, history of angioplasty, stent placement and myocardial infarction. 8. History of hypertension, hyperlipidemia. 9. History of right heel osteomyelitis. 10. Sepsis with right lower lobe, right middle lobe pneumonia. 11. Poor compliance. 12. Symptomatic diabetic gastroparesis with symptoms of abdominal pain, nausea, vomiting. 13. Volume overload and fluid overload with pulmonary vascular congestion and possible systolic congestive heart failure. 14. End-stage renal disease, hemodialysis dependent. 15. Acute decompensated systolic congestive heart failure. 16. Healthcare-associated pneumonia. 17. Anemia of chronic kidney disease. 18. Hypertensive chronic kidney disease and end-stage renal disease. 19. Sepsis with right lower lobe, right middle lobe pneumonia. 20. Hypertensive cardiovascular disease with nonspecific intraventricular conduction block with left axis deviation and questionable coronary ischemia. 21. Hypertension. 22. Leukopenia. 24. Granulocytosis. 25. Uncontrolled insulin-requiring diabetes mellitus with hemoglobin A1c of 11.7 and fructose level of 546. 26. Secondary hyperparathyroidism with hyperphosphatemia. 27. Hypovitaminosis D. 28. Acute recurrent systolic congestive heart failure with elevated BNP. 29. Proteinuria with microscopic hematuria and bacteriuria. 1. Abdominal pain with nausea, vomiting. Etiology undetermined versus questionable and possible diabetic gastroparesis. 2. Severe noncompliance. 3. Hypertension. 4. Morbid obesity with elevated body mass index of 38. 5. Normocytic anemia with granulocytosis. 6. Questionable increased anion gap metabolic acidosis. 7. End-stage renal disease, hemodialysis dependent. 8. Hyperglycemia. 9. Uncontrolled diabetes mellitus. 10. Possible systolic congestive heart failure with elevated BNP. 11. Left upper extremity arteriovenous fistula placement. 12. End-stage renal disease, hemodialysis dependent three times a week via the right upper chest [place] catheter. 13. History of myocardial infarction, history of coronary artery disease, history of coronary artery bypass graft, history of angioplasty and stent placement. 14. Possible ischemic dilated cardiomyopathy. 15. Proteinuria. 16. Microscopic hematuria and bacteriuria. 17. Oxygen-requiring chronic obstructive pulmonary disease. 18. Acute exacerbation of systolic congestive heart failure. 19. Possible decompensated systolic congestive heart failure with elevated BNP. 20. Anemia of chronic kidney disease. 21. Hypertensive end-stage renal disease. 22. Hypertension. 23. Insulin-requiring diabetes mellitus. 24. Hyperlipidemia. 25. Diabetic neuropathy. 26. Diabetic gastroparesis. 1. Abdominal pain, etiology unclear versus diabetic gastroparesis with symptoms of nausea, vomiting. 2. Atypical chest pain. 3. Morbid obesity with elevated body mass index. 4. Low-grade fever. 5. Tachycardia. 6. Hypertension. 7. Normocytic anemia. 8. Granulocytosis. 9. Increased anion gap metabolic acidosis. 10. End-stage renal disease, hemodialysis dependent. 11. Uncontrolled diabetes mellitus with hyperglycemia. 12. Proteinuria and bacteriuria and microscopic hematuria. 13. Cardiomegaly. 14. Pulmonary vascular congestion. 15. Right lower lobe, right middle lobe atelectasis versus pneumonia and infiltrate. 16. Splenomegaly. 17. Left axis deviation with intraventricular conduction block and lateral coronary ischemia. 18. Status post right upper chest dialysis catheter placement. 19. Possible acute exacerbation of systolic congestive heart failure. 20. Probable diabetic gastroparesis versus gastritis. 21. Uncontrolled diabetes. PLAN: At this time, the patient has been ordered repeat labs. Current consultations; Nephrology, Gastroenterology, Hematology/Oncology, Infectious Diseases, Cardiology. Current medications; the patient is on clonidine 0.1 mg p.o. every 8 hours p.r.n., Claritin 10 mg daily, the patient's Demadex 100 mg twice a day has been ordered to be held for systolic blood pressure less than equal to 110, doxycycline 100 mg p.o. every 12 hours, aspirin 81 mg daily, Humalog medium dose sliding scale coverage, Venofer 100 mg, Levemir 20 units with breakfast and dinner, Lipitor 20 mg at bedtime, Lopressor 50 mg twice a day, Lyrica 50 mg twice a day, cefepime 1 g IV every 24 hours, Plavix 75 daily, Protonix 40 mg twice a day, Reglan 5 mg IV a.c. and at bedtime, Renagel 2400 mg three times a day, Tricor 48 mg daily, Tylenol p.o. suppository every 4 hours p.r.n., the patient was given vancomycin 1 g yesterday x1 dose, ascorbic acid 500 mg daily, Xopenex 0.63 mg every 6 hours, Zaroxolyn is also ordered to be held for systolic blood pressure less than or equal to 110 and diastolic rates less than or equal to 50. The patient is on Zaroxolyn 10 mg b.i.d. with holding parameters. The patient is on Zestril with holding parameters of systolic less than 110. The patient is on Zofran 4 IV every 4 hours. Chest PT, oxygen 2 liters, renal diet, out of bed, physical therapy, occupational therapy. The patient was seen by Infectious Diseases. Their recommendation is to complete 4-7 days of therapy. The patient will be considered for possible discharge tomorrow. If the patient stays stable, the patient will be considered for discharge tomorrow. The patient was updated about her condition, diagnosis, treatment plan, management plans, and the patient is compliant today. Dictated and electronically signed, not read. Moses Lira MD [facility]
[2018-01-21 07:57] VITALS: BP 102/50; PULSE 85; TEMP 99; O2SAT 90
[2018-01-21] MEDS: Insulin Lispro (humaLOG) MEDIUM Coverage SC SCH ×2 (08:59→14:53)
[2018-01-21] MEDS: Insulin Detemir 100 units/ml Vial (Levemir) SC SCH (08:59)
[2018-01-21 10:49] LABS: BASO # 0.01 K/mm3 (0.0-2.0); BASO % 0.1 % (0.0-3.0); EOS # 0.2 (0.0-0.7); EOS % 2.7 % (1.5-5.0); GRAN # 5.72 (1.4-6.5); GRAN % 76.4 % (50.0-68.0); HEMOGLOBIN 9.1 g/dL (12.0-16.0); LYMPH # 0.9 (1.2-3.4); LYMPH % 11.3 % (22.0-35.0); MEAN CELL VOLUME 96.8 fl (80.0-105.0); MEAN CORPUSCULAR HEMOGLOBIN 32.4 pg (25.0-35.0); MEAN CORPUSCULAR HGB CONC 33.5 g/dl (31.0-37.0); MEAN PLATELET VOLUME 9.4 fl (7.0-11.0); MONO # 0.7 (0.1-0.6); MONO % 9.5 % (1.0-6.0); RBC 2.81 10^6/uL (3.5-6.1); WHITE BLOOD COUNT 7.5 10^3/ul (4.5-11.0)
[2018-01-21 11:13] LABS: ALB/GLOB RATIO 1.2 (1.1-1.8); ALBUMIN 3.9 g/dL (3.0-4.8); CALCIUM 9.1 mg/dL (8.4-10.5)
--- NOTE | 2018-01-21 11:51 | PN ---
DATE: 01/21/2018 CARDIOLOGY FOLLOWUP SUBJECTIVE: The patient is feeling well. PHYSICAL EXAMINATION: VITAL SIGNS: Blood pressure is 102/50, the heart rates in the 80s. NECK: Negative JVD. LUNGS: Clear to auscultation. HEART: Reveal S1, S2. EXTREMITIES: Without edema. LABORATORY DATA: Hemoglobin is 10.3. Chemistries: Glucose is 250. IMPRESSION: 1. End-stage renal disease. 2. Dilated cardiomyopathy. 3. Diabetes mellitus. 4. Anemia. 5. Obesity. 6. Coronary artery disease. PLAN: Given these findings, I have discussed with the patient about her need to lose weight and undergo cardiac reduction program. She understands and is agreeable to give it another shot. Austin Markham MD
--- NOTE | 2018-01-21 12:26 | CP.PCM.PN ---
Subjective - Date & Time of Evaluation Date of Evaluation: 01/20/18 Time of Evaluation: 19:10 - Subjective Subjective: Feeling better. Objective - Vital Signs/Intake and Output Vital Signs (last 24 hours): Temp Pulse Resp BP Pulse Ox 99 F 85 20 102/50 L 90 L 01/21/18 06:00 01/21/18 09:00 01/21/18 06:00 01/21/18 09:00 01/21/18 06:00 Intake and Output: 01/21/18 01/21/18 06:59 18:59 Intake Total 300 Output Total 100 Balance 200 - Medications Medications: Current Medications Acetaminophen (Tylenol 325mg Tab) 650 mg PO Q4 PRN PRN Reason: Fever >100.4 F Last Admin: 01/19/18 23:32 Dose: 650 mg Acetaminophen (Tylenol 650 Mg Supp) 650 mg RC Q4H PRN PRN Reason: Fever >100.4 F Ascorbic Acid (Vitamin C 500 Mg Tab) 500 mg PO DAILY [facility] Last Admin: 01/20/18 09:50 Dose: 500 mg Aspirin (Ecotrin) 81 mg PO DAILY [facility] Last Admin: 01/20/18 09:50 Dose: 81 mg Atorvastatin Calcium (Lipitor) 20 mg PO HS [facility] Last Admin: 01/20/18 21:50 Dose: 20 mg Clonidine HCl (Catapres) 0.1 mg PO Q8H PRN PRN Reason: Systolic Blood Pressure Clopidogrel Bisulfate (Plavix) 75 mg PO QAM [facility] Last Admin: 01/20/18 09:50 Dose: 75 mg Darbepoetin Davonte (Aranesp) 100 mcg IVP WE [facility] Last Admin: 01/19/18 14:15 Dose: 100 mcg Doxycycline Hyclate (Doryx) 100 mg PO Q12 [facility] Stop: 01/24/18 06:44 Last Admin: 01/20/18 21:49 Dose: 100 mg Fenofibrate (Tricor) 48 mg PO DAILY [facility] Last Admin: 01/20/18 10:48 Dose: 48 mg Heparin Sodium (Porcine) (Heparin) 2,200 units ICA MOWEFR [facility] Last Admin: 01/19/18 14:58 Dose: 2,200 units Heparin Sodium (Porcine) (Heparin) 2,400 units ICV MOWEFR [facility] Last Admin: 01/19/18 14:59 Dose: 2,400 units Cefepime HCl (Maxipime 1gm) 1 gm in 100 mls @ 100 mls/hr IVPB Q24H SELWYN PRN Reason: Protocol Stop: 01/21/18 18:01 Last Admin: 01/20/18 17:06 Dose: 100 mls/hr Insulin Detemir (Levemir) 20 unit SC ACBD [facility] Last Admin: 01/21/18 08:59 Dose: 20 unit Insulin Human Lispro (Humalog Med) 0 units SC AC SELWYN PRN Reason: Protocol Last Admin: 01/21/18 08:59 Dose: 5 units Lactobacillus Acidophilus (Bacid Acidophilus) 1 cap PO BID [facility] Last Admin: 01/20/18 17:05 Dose: 1 cap Levalbuterol HCl (Xopenex) 0.63 mg IH [id number] [facility] Last Admin: 01/21/18 07:33 Dose: Not Given Lisinopril (Zestril) 20 mg PO QAM [facility] Loratadine (Claritin) 10 mg PO DAILY [facility] Last Admin: 01/20/18 09:50 Dose: 10 mg Metoclopramide HCl (Reglan) 5 mg IVP ACHS [facility] Last Admin: 01/21/18 09:00 Dose: 5 mg Metolazone (Zaroxolyn) 10 mg PO BID [facility] Last Admin: 01/20/18 17:06 Dose: 10 mg Metoprolol Tartrate (Lopressor) 50 mg PO BRKDIN [facility] Last Admin: 01/21/18 09:00 Dose: 50 mg Ondansetron HCl (Zofran Inj) 4 mg IVP Q4H PRN PRN Reason: Nausea/Vomiting Last Admin: 01/14/18 21:02 Dose: 4 mg Pantoprazole Sodium (Protonix Ec Tab) 40 mg PO 0600,1600 [facility] Last Admin: 01/21/18 05:38 Dose: 40 mg Pregabalin (Lyrica) 50 mg PO BID [facility] Last Admin: 01/20/18 17:06 Dose: 50 mg Sevelamer HCl (Renagel) 2,400 mg PO ACTID [facility] Last Admin: 01/21/18 09:11 Dose: 2,400 mg Torsemide (Demadex) 100 mg PO BID [facility] Last Admin: 01/20/18 17:05 Dose: 100 mg - Labs Labs: 01/21/18 10:30 01/21/18 10:30 - Head Exam Head Exam: ATRAUMATIC - Eye Exam Eye Exam: Normal appearance - ENT Exam ENT Exam: Mucous Membranes Dry - Respiratory Exam Respiratory Exam: NORMAL BREATHING PATTERN - Cardiovascular Exam Cardiovascular Exam: +S1, +S2 - GI/Abdominal Exam GI & Abdominal Exam: Normal Bowel Sounds Assessment and Plan (1) Anemia Assessment & Plan: anemia of chronic disease and anemia of CKD erythropoietin per renal H/H improved Status: Acute
[2018-01-21] MEDS: Cefepime 1gm in NS 100ml 1 GM/100 ML BAG IVPB SCH (14:00)
--- NOTE | 2018-01-21 14:29 | CP.PCM.PN ---
Subjective - Date & Time of Evaluation Date of Evaluation: 01/21/18 Time of Evaluation: 12:20 - Subjective Subjective: No fevers, not in distress. Objective - Vital Signs/Intake and Output Vital Signs (last 24 hours): Temp Pulse Resp BP Pulse Ox 99 F 85 20 102/50 L 90 L 01/21/18 06:00 01/21/18 09:00 01/21/18 06:00 01/21/18 09:00 01/21/18 06:00 Intake and Output: 01/21/18 01/21/18 06:59 18:59 Intake Total 300 Output Total 100 Balance 200 - Medications Medications: Current Medications Acetaminophen (Tylenol 325mg Tab) 650 mg PO Q4 PRN PRN Reason: Fever >100.4 F Last Admin: 01/19/18 23:32 Dose: 650 mg Acetaminophen (Tylenol 650 Mg Supp) 650 mg RC Q4H PRN PRN Reason: Fever >100.4 F Ascorbic Acid (Vitamin C 500 Mg Tab) 500 mg PO DAILY [facility] Last Admin: 01/20/18 09:50 Dose: 500 mg Aspirin (Ecotrin) 81 mg PO DAILY [facility] Last Admin: 01/20/18 09:50 Dose: 81 mg Atorvastatin Calcium (Lipitor) 20 mg PO HS [facility] Last Admin: 01/20/18 21:50 Dose: 20 mg Clonidine HCl (Catapres) 0.1 mg PO Q8H PRN PRN Reason: Systolic Blood Pressure Clopidogrel Bisulfate (Plavix) 75 mg PO QAM [facility] Last Admin: 01/20/18 09:50 Dose: 75 mg Darbepoetin Davonte (Aranesp) 100 mcg IVP WE [facility] Last Admin: 01/19/18 14:15 Dose: 100 mcg Doxycycline Hyclate (Doryx) 100 mg PO Q12 [facility] Stop: 01/24/18 06:44 Last Admin: 01/20/18 21:49 Dose: 100 mg Fenofibrate (Tricor) 48 mg PO DAILY [facility] Last Admin: 01/20/18 10:48 Dose: 48 mg Heparin Sodium (Porcine) (Heparin) 2,200 units ICA MOWEFR [facility] Last Admin: 01/19/18 14:58 Dose: 2,200 units Heparin Sodium (Porcine) (Heparin) 2,400 units ICV MOWEFR [facility] Last Admin: 01/19/18 14:59 Dose: 2,400 units Cefepime HCl (Maxipime 1gm) 1 gm in 100 mls @ 100 mls/hr IVPB Q24H [facility] PRN Reason: Protocol Stop: 01/21/18 18:01 Last Admin: 01/20/18 17:06 Dose: 100 mls/hr Insulin Detemir (Levemir) 20 unit SC ACBD [facility] Last Admin: 01/21/18 08:59 Dose: 20 unit Insulin Human Lispro (Humalog Med) 0 units SC AC [facility]ELWYN PRN Reason: Protocol Last Admin: 01/21/18 08:59 Dose: 5 units Lactobacillus Acidophilus (Bacid Acidophilus) 1 cap PO BID [facility] Last Admin: 01/20/18 17:05 Dose: 1 cap Levalbuterol HCl (Xopenex) 0.63 mg IH [id number] [facility] Last Admin: 01/21/18 07:33 Dose: Not Given Lisinopril (Zestril) 20 mg PO QAM [facility] Loratadine (Claritin) 10 mg PO DAILY [facility] Last Admin: 01/20/18 09:50 Dose: 10 mg Metoclopramide HCl (Reglan) 5 mg IVP ACHS [facility] Last Admin: 01/21/18 09:00 Dose: 5 mg Metolazone (Zaroxolyn) 10 mg PO BID [facility] Last Admin: 01/20/18 17:06 Dose: 10 mg Metoprolol Tartrate (Lopressor) 50 mg PO BRKDIN [facility] Last Admin: 01/21/18 09:00 Dose: 50 mg Ondansetron HCl (Zofran Inj) 4 mg IVP Q4H PRN PRN Reason: Nausea/Vomiting Last Admin: 01/14/18 21:02 Dose: 4 mg Pantoprazole Sodium (Protonix Ec Tab) 40 mg PO 0600,1600 [facility] Last Admin: 01/21/18 05:38 Dose: 40 mg Pregabalin (Lyrica) 50 mg PO BID [facility] Last Admin: 01/20/18 17:06 Dose: 50 mg Sevelamer HCl (Renagel) 2,400 mg PO ACTID [facility] Last Admin: 01/21/18 09:11 Dose: 2,400 mg Torsemide (Demadex) 100 mg PO BID [facility] Last Admin: 01/20/18 17:05 Dose: 100 mg - Labs Labs: 01/21/18 10:30 01/21/18 10:30 - Constitutional Appears: Chronically Ill - Head Exam Head Exam: NORMAL INSPECTION - Respiratory Exam Respiratory Exam: Decreased Breath Sounds - Cardiovascular Exam Cardiovascular Exam: +S1, +S2 - GI/Abdominal Exam GI & Abdominal Exam: Soft. absent: Tenderness Assessment and Plan - Assessment and Plan (Free Text) Plan: Assessment right sided HCAP, slowly improving history of right foot skin and skin structure infection with Klebsiella and E. faecalis history of drug-related maculopapular rash, probably related to morphine HTN DM CAD S/P CABG chronic renal failure chronic foot ulcer on the left dyslipidemia COPD morbid obesity with BMI 48 chronic renal failure Plan continue Cefepime day 7 to complete 4-7 days of therapy
[2018-01-21] MEDS: Lactobacillus Acidophilus 500 MU Cap PO SCH (14:52)
--- NOTE | 2018-01-21 19:54 | CP.PCM.PN ---
Objective - Vital Signs/Intake and Output Vital Signs (last 24 hours): Temp Pulse Resp BP Pulse Ox 99 F 85 20 102/50 L 90 L 01/21/18 06:00 01/21/18 09:00 01/21/18 06:00 01/21/18 09:00 01/21/18 06:00 Intake and Output: 01/21/18 01/22/18 18:59 06:59 Intake Total 120 Balance 120 - Labs Labs: 01/21/18 10:30 01/21/18 10:30 Assessment and Plan (1) ESRD (end stage renal disease) on dialysis Status: Chronic (2) Congestive heart failure Status: Acute (3) Pneumonia Status: Acute (4) Anemia in ESRD (end-stage renal disease) Status: Chronic (5) Hypertensive CKD, ESRD on dialysis Status: Chronic (6) Chronic kidney disease-mineral and bone disorder Status: Chronic
--- NOTE | 2018-01-22 08:34 | DS ---
FINAL PROGRESS NOTE AND DISCHARGE SUMMARY SUBJECTIVE: The patient is seen sitting up in the bed in room 569, bed 2. The patient appears to be more compliant and cooperative. Overnight nurse's notes were reviewed. The patient took her due medications and did her IV infusions of the Venofer without any resistance and any issues. PHYSICAL EXAMINATION: VITAL SIGNS: T-max 98.2; heart rate 85, 80, 86, 88; blood pressure 118/64, 112/67, 120/50; respirations 20; O2 sat 98%. HEENT: Head: Normocephalic, atraumatic. Pinkish pale conjunctivae. Anicteric sclerae. No oropharyngeal lesion. NECK: No neck rigidity. CHEST: Kyphosis. Positive median sternotomy surgical scar. Positive right upper chest dialysis catheter. LUNGS: Show no rales, crackles, or wheezing. CARDIOVASCULAR: S1 and S2, regular rhythm. Positive systolic murmur at the left sternal border, right second intercostal space, left second intercostal space. ABDOMEN: Soft, nondistended, non protuberant. No hepatosplenomegaly noted. No guarding. No rigidity. No rebound tenderness. No epigastric tenderness. No right upper quadrant periumbilical tenderness. No costovertebral angle tenderness. GENITALIA: Female. RECTAL: Deferred. EXTREMITIES: Show positive left upper extremity AV fistula. Lower extremities show no pitting edema, no calf numbness, no Homans sign. NEUROLOGIC: The patient is alert, awake, and oriented x3. Cranial nerves II through XII intact. Gait examination is independent. MUSCULOSKELETAL: Shows a body mass index of 37. DIAGNOSTICS: 01/20/2018: WBC 6.5, hemoglobin and hematocrit 10.3 and 31, and platelets 265. These are the labs from 01/20/2018. Immunofixation and serum protein electrophoresis negative. Serum immunofixation, no monoclonal protein detected. [place] and lambda light chain ratio and free kappa and lambda light chain studies are pending. Blood cultures are negative. FINAL IMPRESSION, PLAN, AND DISCHARGE DIAGNOSES: 1. Right middle lobe, right lower lobe subsegmental infiltrate, atelectasis, and healthcare-associated pneumonia. 2. Splenomegaly. 3. Diabetic gastroparesis with acute exacerbation. 4. End-stage renal disease, hemodialysis dependent three times a week via the right upper chest [place] catheter. 5. Cardiomegaly with pulmonary vascular congestion (resolved). 6. History of coronary artery disease, coronary artery bypass graft. 7. Left axis deviation with intraventricular conduction block. 8. Morbid obesity with elevated body mass index of 37.2. 9. Diabetic neuropathy. 10. Uncontrolled insulin-requiring diabetes mellitus with hemoglobin A1c of greater than 11 and 12. 11. Left ventricular ejection fraction of 44% with concentric left ventricular hypertrophy. 12. Moderate mitral annular calcification. 13. Mild tricuspid regurgitation. 14. Concentric left ventricular hypertrophy. 15. Congestive heart failure. 16. History of weight gain. 17. Dyslipidemia. 18. Coronary artery disease. 19. Hypertension. 1. Healthcare-associated pneumonia (resolving). 2. Severe symptomatic diabetic gastroparesis. 3. Low-grade fever. 4. Hypotension. 5. Normocytic anemia with decreasing hemoglobin. 6. Uncontrolled insulin-requiring diabetes mellitus with hemoglobin A1c of greater than 11.7. 7. Hyperglycemia. 8. Iron deficiency. 9. Secondary hyperparathyroidism with elevated PTH of 278 and hyperphosphatemia. 10. Hyperprolactinemia. 11. Hyperglycemia with uncontrolled diabetes mellitus. 12. Hyperfructosemia with uncontrolled diabetes. 13. Proteinuria, microscopic hematuria. 14. History of coronary artery disease, coronary artery bypass graft, history of myocardial infarction, history of angioplasty and stent placement. 15. End-stage renal disease, hemodialysis dependent via the right upper chest [place] catheter. 16. Hypo-proliferative erythroid response with anemia of chronic kidney disease. 17. Dyslipidemia. 1. Poor compliance with refusal of medications and lab data. 2. Hypertension. 3. Low grade fever. 4. Persistent refractory normocytic anemia with granulocytosis and leukopenia. 5. End-stage renal disease, hemodialysis dependent. 6. Insulin requiring uncontrolled diabetes mellitus with hemoglobin A1c of 11.7 and hyperglycemia. 7. Hypovitaminosis D. 8. Hyperprolactinemia. 9. Secondary hyperparathyroidism. 10. Congestive heart failure with elevated BNP. 11. Proteinuria, glycosuria, microscopic hematuria, bacteriuria. 12. Morbid obesity with elevated body mass index of greater than 37. 13. Right upper chest dialysis catheter. 14. Right lower lobe linear scarring. 15. Cardiomegaly. 16. Coronary artery disease, coronary artery bypass graft. 17. Left ventricular ejection fraction of 44% with mild concentric left ventricular hypertrophy. 18. Moderate mitral annular calcification. 19. Mild tricuspid regurgitation. 20. Pneumonia. 21. Healthcare-associated pneumonia, slow resolving. 22. Diabetic gastroparesis, symptomatic (resolved). 23. Acute exacerbation of congestive heart failure. 24. Hypovitaminosis D. 1. Healthcare-associated pneumonia. 2. Slowly improving right-sided healthcare pneumonia. 3. Right lower lobe linear scarring. 4. Cardiomegaly. 5. History of coronary artery disease, coronary artery bypass graft, and coronary angioplasty. 6. History of myocardial infarction. 7. Left ventricular ejection fraction of 45% to 50%. 8. Morbid obesity. 9. Anemia of chronic disease and chronic kidney disease. 10. Low-grade fever. 11. Transient tachycardia. 12. History of hypertension. 13. Possible gastroenteritis versus gastroparesis. 14. Hyperlipidemia. 15. Hypertension. 16. Hypercholesteremia. 17. Insulin-requiring diabetes mellitus with hyperglycemia. 18. Diabetic gastroparesis. 19. Tachycardia. 20. Diabetic neuropathy. 21. Secondary hyperparathyroidism. 1. Abdominal pain, etiology unclear, questionable acute gastroenteritis versus acute exacerbation of diabetic gastroparesis. 2. Uncontrolled insulin-requiring diabetes mellitus with hyperglycemia and hemoglobin A1c of greater than 11.7. 3. Hypertension. 4. Low grade fever. 5. Transient tachycardia. 6. Morbid obesity with elevated body mass index of 37.3. 7. Leukopenia. 8. Anemia of chronic disease with normocytic anemia. 9. Granulocytosis. 10. Questionable increased anion gap metabolic acidosis. 11. Acute on chronic systolic congestive heart failure with dilated ischemic cardiomyopathy. 12. Hyperprocalcitoninemia. 13. Secondary hyperparathyroidism with elevated PTH of greater than 270. 14. Hypokalemia. 15. Hypovitaminosis D. 16. Elevated fructosamine level of greater than 540. 17. Hyperphosphatemia. 18. Proteinuria, glycosuria, microscopic hematuria, bacteriuria. 19. Nonspecific intraventricular conduction block. 20. Questionable lateral ischemia. 21. End-stage renal disease, hemodialysis dependent three times a week via the right upper chest [place] catheter. 22. Acute decompensated systolic congestive heart failure and possible dilated ischemic cardiomyopathy. 23. Bilateral multilobar healthcare-associated pneumonia. 24. Anemia of chronic kidney disease. 25. Hypertensive chronic kidney disease with end-stage renal disease. 26. Volume and fluid overload. 27. History of myocardial infarction, coronary artery disease, coronary artery bypass graft and history of angioplasty. 28. Poor compliance. 29. Dyslipidemia. 30. Diabetic neuropathy. 31. Sepsis with right lower lobe healthcare-associated pneumonia. 1. Abdominal pain, etiology undetermined. 2. Most likely diabetic gastroparesis, symptomatic with symptoms of abdominal pain. 3. Insulin-requiring diabetes mellitus. 4. End-stage renal disease, hemodialysis requiring 3 times a week. 5. Hyperprocalcitoninemia. 6. Low-grade fever. 7. History of coronary artery disease, coronary artery bypass graft, history of angioplasty, stent placement and myocardial infarction. 8. History of hypertension, hyperlipidemia. 9. History of right heel osteomyelitis. 10. Sepsis with right lower lobe, right middle lobe pneumonia. 11. Poor compliance. 12. Symptomatic diabetic gastroparesis with symptoms of abdominal pain, nausea, vomiting. 13. Volume overload and fluid overload with pulmonary vascular congestion and possible systolic congestive heart failure. 14. End-stage renal disease, hemodialysis dependent. 15. Acute decompensated systolic congestive heart failure. 16. Healthcare-associated pneumonia. 17. Anemia of chronic kidney disease. 18. Hypertensive chronic kidney disease and end-stage renal disease. 19. Sepsis with right lower lobe, right middle lobe pneumonia. 20. Hypertensive cardiovascular disease with nonspecific intraventricular conduction block with left axis deviation and questionable coronary ischemia. 21. Hypertension. 22. Leukopenia. 24. Granulocytosis. 25. Uncontrolled insulin-requiring diabetes mellitus with hemoglobin A1c of 11.7 and fructose level of 546. 26. Secondary hyperparathyroidism with hyperphosphatemia. 27. Hypovitaminosis D. 28. Acute recurrent systolic congestive heart failure with elevated BNP. 29. Proteinuria with microscopic hematuria and bacteriuria. 1. Abdominal pain with nausea, vomiting. Etiology undetermined versus questionable and possible diabetic gastroparesis. 2. Severe noncompliance. 3. Hypertension. 4. Morbid obesity with elevated body mass index of 38. 5. Normocytic anemia with granulocytosis. 6. Questionable increased anion gap metabolic acidosis. 7. End-stage renal disease, hemodialysis dependent. 8. Hyperglycemia. 9. Uncontrolled diabetes mellitus. 10. Possible systolic congestive heart failure with elevated BNP. 11. Left upper extremity arteriovenous fistula placement. 12. End-stage renal disease, hemodialysis dependent three times a week via the right upper chest [place] catheter. 13. History of myocardial infarction, history of coronary artery disease, history of coronary artery bypass graft, history of angioplasty and stent placement. 14. Possible ischemic dilated cardiomyopathy. 15. Proteinuria. 16. Microscopic hematuria and bacteriuria. 17. Oxygen-requiring chronic obstructive pulmonary disease. 18. Acute exacerbation of systolic congestive heart failure. 19. Possible decompensated systolic congestive heart failure with elevated BNP. 20. Anemia of chronic kidney disease. 21. Hypertensive end-stage renal disease. 22. Hypertension. 23. Insulin-requiring diabetes mellitus. 24. Hyperlipidemia. 25. Diabetic neuropathy. 26. Diabetic gastroparesis. 1. Abdominal pain, etiology unclear versus diabetic gastroparesis with symptoms of nausea, vomiting. 2. Atypical chest pain. 3. Morbid obesity with elevated body mass index. 4. Low-grade fever. 5. Tachycardia. 6. Hypertension. 7. Normocytic anemia. 8. Granulocytosis. 9. Increased anion gap metabolic acidosis. 10. End-stage renal disease, hemodialysis dependent. 11. Uncontrolled diabetes mellitus with hyperglycemia. 12. Proteinuria and bacteriuria and microscopic hematuria. 13. Cardiomegaly. 14. Pulmonary vascular congestion. 15. Right lower lobe, right middle lobe atelectasis versus pneumonia and infiltrate. 16. Splenomegaly. 17. Left axis deviation with intraventricular conduction block and lateral coronary ischemia. 18. Status post right upper chest dialysis catheter placement. 19. Possible acute exacerbation of systolic congestive heart failure. 20. Probable diabetic gastroparesis versus gastritis. 21. Uncontrolled diabetes Plan at this time, the patient will be given her IV antibiotic dose prior to discharge today and then the patient will be discharged home. Plan at this time, the patient will be discharged home with followup with Dr. Lira, Dr. Sultana, Dr. Pedraza, and Dr. Markham within 1 week. DISCHARGE MEDICATIONS: As per updated ambulatory orders. The patient is to be continued on the following discharge medications: 1. Ascorbic acid 500 mg daily. 2. Ecotrin 81 mg daily. 3. Clonidine 0.2 mg twice a day. 4. Plavix 75 mg daily. 5. Tricor 54 mg daily. 6. Hydralazine 50 mg twice a day. 7. Levemir 20 units with breakfast and dinner, and sliding scale coverage before meals. 8. Xyzal 5 mg daily. 9. Zestril 20 mg daily. 10. Reglan 10 mg three times a day. 11. Lopressor 50 mg twice a day. 12. Protonix 40 mg once or twice a day. 13. Lyrica 50 mg twice a day. 14. Renagel 2400 mg with meals. 15. Zocor 40 mg daily. 16. Demadex 100 mg twice a day. 17. Lipitor or Zocor 20 mg daily. 18. Lopressor 50 mg twice a day. 19. Zaroxolyn 10 mg twice a day. 20. Blood pressure permitting Zestril 20 mg daily. During this hospitalization, the patient was extensively explained about the details of her medical condition, her diagnosis, treatment plan, consequences, and complications thereof of her medical condition explained to the patient on a daily basis including complications of diabetic retinopathy, history of cerebral infarct, complications of loss of limb, and severe peripheral vascular disease, etc., and life-threatening complications of uncontrolled diabetes and other underlying medical conditions associated with the patient's medical history were explained to the patient on a daily basis, which she acknowledged and understand. All questions concerned answered. Time spent in the entire discharge process more than 45 minutes. Dictated and electronically signed, not read. Moses Lira MD MTDD
== END 2018-01-21 16:11 | disposition home or self-care (01) | DRG 871 ==
LOC: ED 09:21 → ERH 12:13 → 2RNO 19:23 → 5RNO 01-16 17:34
PROVIDERS: ADMIT Internal Medicine; ATTEND Internal Medicine
PROC: 3E03329 Introduction of Other Anti-infective into Peripheral Vein, Percutaneous Approach (ICD-10-PCS; 2018-01-14)
PROC: 5A1D70Z Performance of Urinary Filtration, Intermittent, Less than 6 Hours Per Day (ICD-10-PCS; principal; 2018-01-17)
PROC: 5A1D70Z Performance of Urinary Filtration, Intermittent, Less than 6 Hours Per Day (ICD-10-PCS; 2018-01-19)
PROC: 5A1D70Z Performance of Urinary Filtration, Intermittent, Less than 6 Hours Per Day (ICD-10-PCS; 2018-01-21)
DX: A41.9 Sepsis, unspecified organism (principal); I50.23 Acute on chronic systolic (congestive) heart failure; J18.9 Pneumonia, unspecified organism; N18.6 End stage renal disease; E22.1 Hyperprolactinemia; E87.2 Acidosis; I13.2 Hypertensive heart and chronic kidney disease with heart failure and with stage 5 chronic kidney disease, or end stage renal disease; I42.0 Dilated cardiomyopathy; J98.11 Atelectasis; Z68.42 Body mass index [BMI] 45.0-49.9, adult; J44.0 Chronic obstructive pulmonary disease with (acute) lower respiratory infection; N25.81 Secondary hyperparathyroidism of renal origin; D63.1 Anemia in chronic kidney disease; D72.819 Decreased white blood cell count, unspecified; E10.22 Type 1 diabetes mellitus with diabetic chronic kidney disease; E10.43 Type 1 diabetes mellitus with diabetic autonomic (poly)neuropathy; E10.621 Type 1 diabetes mellitus with foot ulcer; E10.65 Type 1 diabetes mellitus with hyperglycemia; E10.59 Type 1 diabetes mellitus with other circulatory complications; E55.9 Vitamin D deficiency, unspecified; E61.1 Iron deficiency; E66.01 Morbid (severe) obesity due to excess calories; E74.19 Other disorders of fructose metabolism; E78.00 Pure hypercholesterolemia, unspecified; E78.5 Hyperlipidemia, unspecified; E87.6 Hypokalemia; G47.33 Obstructive sleep apnea (adult) (pediatric); I07.1 Rheumatic tricuspid insufficiency; I25.5 Ischemic cardiomyopathy; I25.10 Atherosclerotic heart disease of native coronary artery without angina pectoris; K31.84 Gastroparesis; Y95 Nosocomial condition; Z79.4 Long term (current) use of insulin; I25.2 Old myocardial infarction; I45.4 Nonspecific intraventricular block; K52.9 Noninfective gastroenteritis and colitis, unspecified; L97.509 Non-pressure chronic ulcer of other part of unspecified foot with unspecified severity; M19.90 Unspecified osteoarthritis, unspecified site; M89.9 Disorder of bone, unspecified; R31.29 Other microscopic hematuria; Z53.20 Procedure and treatment not carried out because of patient's decision for unspecified reasons; Z79.02 Long term (current) use of antithrombotics/antiplatelets; Z79.82 Long term (current) use of aspirin; Z79.899 Other long term (current) drug therapy; Z83.3 Family history of diabetes mellitus; Z91.19 Patient's noncompliance with other medical treatment and regimen; Z95.1 Presence of aortocoronary bypass graft; Z95.5 Presence of coronary angioplasty implant and graft; Z99.2 Dependence on renal dialysis

== ENCOUNTER 2018-03-08 09:57 | Day surgery (SDC) | payer MEDICARE, MEDICAID ==
[2018-03-04 10:19] VITALS: BMI 37.9
[2018-03-08] MEDS ORDERED: Lidocaine 2% Inj (20ml) ONE (11:35)
[2018-03-08] MEDS ORDERED: Midazolam 2 MG/2 ML VIAL ONE (12:28)
[2018-03-08] MEDS ORDERED: Oxycodone/Acetaminophen 5/325 mg Tab PO PRN (13:09)
[2018-03-08 14:14] VITALS: RESP 18; TEMP 97.7
--- NOTE | 2018-03-08 14:41 | VASCULAR ---
PROCEDURE: Removal of tunneled right IJ dialysis catheter. CLINICAL HISTORY: End-stage renal disease. Malfunctioning tunneled right IJ dialysis catheter. Functioning left upper extremity AV access. PHYSICIAN(S): Austin Muse M.D. TECHNIQUE: The relative risks and indications of the procedure were explained to the patient and consent obtained. The patient was placed supine on the arteriogram table and the tunneled right IJ dialysis catheter prepped and draped in the usual sterile fashion. Conscious sedation and monitoring were provided throughout the procedure by nurse. 1% Xylocaine was used to anesthetize skin and soft tissues along the tunnel. The tunnel and cuff were bluntly dissected. The catheter was removed and pressure applied at the venous insertion site. A single interrupted suture was placed at the exit site. The patient tolerated the procedure well. IMPRESSION: 1. Removal of the patient's tunneled right IJ dialysis catheter.
[2018-03-08 14:50] VITALS: BP 165/90; PULSE 78; O2SAT 99
== END 2018-03-08 15:10 | disposition home or self-care (01) ==
LOC: SDSVAS 09:57
PROVIDERS: ATTEND Radiology Vascular & Interventional Radiology
DX: T82.41XA Breakdown (mechanical) of vascular dialysis catheter, initial encounter (principal); I13.2 Hypertensive heart and chronic kidney disease with heart failure and with stage 5 chronic kidney disease, or end stage renal disease; E11.22 Type 2 diabetes mellitus with diabetic chronic kidney disease; N18.6 End stage renal disease; I25.2 Old myocardial infarction; E11.51 Type 2 diabetes mellitus with diabetic peripheral angiopathy without gangrene; D64.9 Anemia, unspecified; E66.9 Obesity, unspecified; J44.9 Chronic obstructive pulmonary disease, unspecified; M19.90 Unspecified osteoarthritis, unspecified site; E11.40 Type 2 diabetes mellitus with diabetic neuropathy, unspecified; I25.10 Atherosclerotic heart disease of native coronary artery without angina pectoris; Z95.1 Presence of aortocoronary bypass graft; Z95.5 Presence of coronary angioplasty implant and graft
CPT/HCPCS: 36415; 36589; 99152; J1644; J2250; J2405; J3010

== ENCOUNTER 2018-04-04 11:22 | Day surgery (SDC) | payer MEDICARE, MEDICAID ==
[2018-04-04 10:55] VITALS: BMI 34.0
[2018-04-04] MEDS ORDERED: Lidocaine PF 2% (5 ml) Inj (For Cardiac Arrhy) ONE (11:57)
[2018-04-04] MEDS ORDERED: Iodixanol 320 MG/ML 100 ML BOTTLE IV ONE (11:57)
[2018-04-04] MEDS ORDERED: Nitroglycerin 50mg in D5W 50 MG/250 ML BOTTLE IV ONE (12:20)
[2018-04-04 12:33] LABS: BASO # 0.01 K/mm3 (0.0-2.0); BASO % 0.2 % (0.0-3.0); EOS # 0.2 (0.0-0.7); EOS % 2.9 % (1.5-5.0); GRAN # 4.57 (1.4-6.5); GRAN % 73.5 % (50.0-68.0); HEMOGLOBIN 11.8 g/dL (12.0-16.0); LYMPH # 1.1 (1.2-3.4); LYMPH % 17.8 % (22.0-35.0); MEAN CELL VOLUME 92.8 fl (80.0-105.0); MEAN CORPUSCULAR HEMOGLOBIN 32.8 pg (25.0-35.0); MEAN CORPUSCULAR HGB CONC 35.3 g/dl (31.0-37.0); MEAN PLATELET VOLUME 9.8 fl (7.0-11.0); MONO # 0.4 (0.1-0.6); MONO % 5.6 % (1.0-6.0); RBC 3.6 10^6/uL (3.5-6.1); RED CELL DISTRIBUTION WIDTH 14.4 % (11.5-14.5); WHITE BLOOD COUNT 6.2 10^3/ul (4.5-11.0)
[2018-04-04 12:53] LABS: INR 0.96; PARTIAL THROMBOPLASTIN TIME 25.8 Seconds (25.1-36.5); PROTHROMBIN TIME 10.9 SECONDS (9.4-12.5)
[2018-04-04] MEDS ORDERED: Midazolam 2 MG/2 ML VIAL ONE ×2 (13:04→13:50)
[2018-04-04 14:41] VITALS: TEMP 97.7
[2018-04-04 14:50] VITALS: O2SAT 95
[2018-04-04 15:20] VITALS: PULSE 78; RESP 20
[2018-04-04 15:50] VITALS: BP 128/70
--- NOTE | 2018-04-04 19:47 | VASCULAR ---
PROCEDURE: 1. Left upper extremity AV graft thrombolysis 2. Arterial anastomosis angioplasty . HISTORY: End-stage renal disease. Recent thrombolysis at access Center. Recurrent thrombosis. PHYSICIAN(S): Austin Muse MD. TECHNIQUE: The relative risks and indications of the procedure were explained the patient consent obtained. Left upper extremity is prepped and draped usual sterile fashion. Conscious sedation monitoring were provided throughout the procedure by a nurse. Antibiotics were given. Under ultrasound guidance, the thrombosed left forearm loop graft was punctured towards the venous anastomosis. A 5 [place] catheter was placed. Evaluation of the venous outflow was performed. A 0.035 support wire was placed in the IVC. Under ultrasound guidance 2nd puncture of the loop graft directed toward the arterial anastomosis was performed. A 0.035 glidewire was placed in the left brachial artery. TPA 4 milligrams again within the loop graft. Percutaneous thrombectomy the venous limb was performed with a 7 mm x 2 cm balloon. The platelet plug and arterial anastomosis were treated with a 6 mm balloon. There was a residual stenosis at the arterial anastomosis. This was subsequently dilated with 6 and 7 mm balloon. Completion angiograms were obtained FINDINGS: The patient's left forearm loop graft is thrombosed. The venous outflow is via the left basilic vein which is patent. The central veins are well visualized widely patent. The venous anastomosis is patent with a mild stenosis. A moderate stenosis was noted at the arterial anastomosis. This was successfully dilated with 6 and 7 mm balloons. IMPRESSION: 1. Successful thrombolysis of the patient's left forearm AV graft 2. Angioplasty of the arterial anastomosis was 6 and 7 mm balloons. 3. Normal venous outflow. There is a mild stenosis at the venous anastomosis.
== END 2018-04-04 15:40 | disposition home or self-care (01) ==
LOC: SDSVAS 11:22
PROVIDERS: ATTEND Radiology Vascular & Interventional Radiology
DX: T82.868A Thrombosis due to vascular prosthetic devices, implants and grafts, initial encounter (principal); T82.858A Stenosis of other vascular prosthetic devices, implants and grafts, initial encounter; I12.0 Hypertensive chronic kidney disease with stage 5 chronic kidney disease or end stage renal disease; E11.22 Type 2 diabetes mellitus with diabetic chronic kidney disease; N18.6 End stage renal disease; I25.10 Atherosclerotic heart disease of native coronary artery without angina pectoris; Z95.1 Presence of aortocoronary bypass graft; J45.909 Unspecified asthma, uncomplicated; D64.9 Anemia, unspecified
CPT/HCPCS: 36415; 36905; 76937; 80048; 82948; 85025; 85610; 85730; 99152; 99153; C1725 ×3; C1760; C1769 ×3; C1887; J0360; J0690; J1644; J2250; J2405; J2997; J3010; Q9967

== ENCOUNTER 2018-05-09 11:43 | Day surgery (SDC) | payer MEDICARE, MEDICAID ==
[2018-05-09 11:55] VITALS: BMI 36.6
[2018-05-09 13:18] LABS: BASO # 0.01 K/mm3 (0.0-2.0); BASO % 0.2 % (0.0-3.0); EOS # 0.2 (0.0-0.7); EOS % 3.3 % (1.5-5.0); GRAN # 3.27 (1.4-6.5); GRAN % 67.8 % (50.0-68.0); HEMOGLOBIN 11.9 g/dL (12.0-16.0); LYMPH # 1.2 (1.2-3.4); LYMPH % 23.9 % (22.0-35.0); MEAN CELL VOLUME 93.2 fl (80.0-105.0); MEAN CORPUSCULAR HEMOGLOBIN 32.4 pg (25.0-35.0); MEAN CORPUSCULAR HGB CONC 34.8 g/dl (31.0-37.0); MEAN PLATELET VOLUME 9.4 fl (7.0-11.0); MONO # 0.2 (0.1-0.6); MONO % 4.8 % (1.0-6.0); RBC 3.67 10^6/uL (3.5-6.1); RED CELL DISTRIBUTION WIDTH 13.9 % (11.5-14.5); WHITE BLOOD COUNT 4.8 10^3/ul (4.5-11.0)
--- NOTE | 2018-05-09 13:48 | ED PDOC ---
Arrival/HPI - General Chief Complaint: Medical Clearance Time Seen by Provider: 05/09/18 12:08 Historian: Patient - History of Present Illness Narrative History of Present Illness (Text): 05/09/18 13:42 48yo female with pmhx of ESRD on dialysis who was referred to ED by Dr. Muse for labs and IV access . Patient have infiltrated dialysis access and is scheduled for another access today. She otherwise denies any somatic complaint. 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 - Endocrine/Metabolic Hx Diabetes Mellitus Type 2: Yes - Hematological/Oncological Hx Blood Transfusions: Yes Hx Blood Transfusion Reaction: No - Integumentary Hx Dermatological Disorder: No - Musculoskeletal/Rheumatological Hx Musculoskeletal Disorders: No - Gastrointestinal Hx Gastrointestinal Disorders: No - Genitourinary/Gynecological Hx Genitourinary Disorders: No - Psychiatric Hx Emotional Abuse: No Hx Physical Abuse: No Hx Substance Use: No - Surgical History Hx Open Heart Surgery: Yes (triple bypass) - Anesthesia Hx Anesthesia Reactions: Yes (VOMITING AT TIMES) Hx Malignant Hyperthermia: No - Suicidal Assessment Feels Threatened In Home Enviroment: No Family/Social History - Physician Review Nursing Documentation Reviewed: Yes Family/Social History: Unknown Family HX Smoking Status: Never Smoked Hx Alcohol Use: No Hx Substance Use: No Allergies/Home Meds Allergies/Adverse Reactions: Allergies No Known Allergies Allergy (Verified 03/04/18 10:19) Home Medications: Home Meds Medication Instructions Recorded Confirmed RX: Fenofibrate [Tricor] 54 mg PO QAM 01/28/17 04/04/18 RX: Insulin Detemir [Levemir] 20 unit SC ACHS 01/28/17 04/04/18 RX: Levocetirizine Dihydrochloride 5 mg PO DAILY 01/28/17 04/04/18 RX: Lisinopril [Zestril] 20 mg PO QAM 01/28/17 04/04/18 RX: Metoprolol Tartrate [Lopressor] 50 mg PO BID 01/28/17 04/04/18 RX: Simvastatin [Zocor] 40 mg PO HS 01/28/17 04/04/18 RX: cloNIDine [Catapres] 0.2 mg PO BID 01/28/17 04/04/18 RX: Pregabalin [Lyrica] 50 mg PO BID 08/26/17 04/04/18 RX: Ascorbic Acid [Vitamin C] 500 mg PO DAILY 12/27/17 04/04/18 RX: Clopidogrel [Plavix] 75 mg PO QAM 12/27/17 04/04/18 RX: Insulin Lispro [Humalog 0 - 20 unit SQ ACTID PRN 12/27/17 04/04/18 (Insulin Lispro)] RX: Metoclopramide [Reglan] 10 mg PO TID 12/27/17 04/04/18 RX: Torsemide [Demadex] 100 mg PO QAM 12/27/17 04/04/18 RX: hydrALAZINE [Apresoline] 50 mg PO BID 12/27/17 04/04/18 Review of Systems - Physician Review All systems were reviewed & negative as marked: Yes - Review of Systems Constitutional: Normal Eyes: Normal ENT: Normal Respiratory: Normal Cardiovascular: Normal Gastrointestinal: Normal Genitourinary Female: Normal Musculoskeletal: Normal Skin: Other (Infilterated dialysis ascess) Neurological: Normal Endocrine: Normal Hemo/Lymphatic: Normal Psychiatric: Normal Physical Exam Vital Signs Reviewed: Yes Vital Signs Temp Pulse Resp BP Pulse Ox 05/09/18 12:16 98.1 F 79 16 166/95 H 99 05/09/18 11:54 98.1 F 80 18 96 Temperature: Afebrile Blood Pressure: Normal Pulse: Regular Respiratory Rate: Normal Appearance: Positive for: Well-Appearing, Non-Toxic, Comfortable Pain Distress: None Mental Status: Positive for: Alert and Oriented X 3 - Systems Exam Head: Present: Atraumatic, Normocephalic Pupils: Present: PERRL Extroacular Muscles: Present: EOMI Conjunctiva: Present: Normal Mouth: Present: Moist Mucous Membranes Neck: Present: Normal Range of Motion Respiratory/Chest: Present: Clear to Auscultation, Good Air Exchange. No: Respiratory Distress, Accessory Muscle Use Cardiovascular: Present: Regular Rate and Rhythm, Normal S1, S2. No: Murmurs Abdomen: No: Tenderness, Distention, Peritoneal Signs Back: Present: Normal Inspection Upper Extremity: Present: Normal Inspection. No: Cyanosis, Edema Lower Extremity: Present: Normal Inspection. No: Edema Neurological: Present: GCS=15, CN II-XII Intact, Speech Normal Skin: Present: Warm, Dry, Normal Color. No: Rashes Psychiatric: Present: Alert, Oriented x 3, Normal Insight, Normal Concentration Medical Decision Making ED Course and Treatment: 05/10/18 18:56 PT was seen in ED for stated history. Case was DW Dr. Muse who requested lab to evaluate pt's potassium, IV access and admission to same day for Dialysis access. Lab was reviewed, pt is ESRD pt and Cr/BUN was elevated. Pt w as admitted to [facility] - Lab Interpretations Lab Results: 05/09/18 13:00 05/09/18 13:00 Lab Results 05/09/18 13:00: Sodium 135, Potassium 4.6, Chloride 96 L, Carbon Dioxide 22, Anion Gap 21 H, BUN 72 H, Creatinine 8.3 H*, Est GFR ( Amer) 6, Est GFR (Non-Af Amer) 5, Random Glucose 357 H*, Calcium 9.1, Total Bilirubin 0.4, AST 19, ALT 14, Alkaline Phosphatase 99, Total Protein 7.9, Albumin 4.1, Globulin 3. 8, Albumin/Globulin Ratio 1.1 05/09/18 13:00: WBC 4.8 D, RBC 3.67, Hgb 11.9 L, Hct 34.2 L, MCV 93.2, MCH 32.4, MCHC 34.8, RDW 13.9, Plt Count 190, MPV 9.4, Gran % 67.8, Lymph % (Auto) 23.9, [place] % (Auto) 4.8, Eos % (Auto) 3.3, Baso % (Auto) 0.2, Gran # 3.27, Lymph # (Auto) 1.2, [place] # (Auto) 0.2, Eos # (Auto) 0.2, Baso # (Auto) 0.01 - RAD Interpretation Radiology Orders: 05/09/18 12:59 CAR PERIPHERAL VASCULAR ORDER [VASCULAR] Stat - Medication Orders Current Medication Orders: Discontinued Medications Acetaminophen (Tylenol 325mg Tab) 325 mg PO Q4 PRN PRN Reason: Pain, Mild (1-3) Oxycodone/Acetaminophen (Percocet 5/325 Mg Tab) 1 tab PO Q6H PRN PRN Reason: Pain, moderate (4-7) Stop: 05/12/18 16:58 Disposition/Present on Arrival - Present on Arrival Any Indicators Present on Arrival: No History of DVT/PE: No History of Uncontrolled Diabetes: Yes Urinary Catheter: No History of Decub. Ulcer: No History Surgical Site Infection Following: None - Disposition Have Diagnosis and Disposition been Completed?: Yes Diagnosis: Dialysis complication Disposition: Trans to Other Acute Care Hosp Disposition Time: 17:00 Patient Plan: Admission Condition: STABLE
[2018-05-09 14:07] LABS: ALB/GLOB RATIO 1.1 (1.1-1.8); ALBUMIN 4.1 g/dL (3.0-4.8); CALCIUM 9.1 mg/dL (8.4-10.5)
[2018-05-09] MEDS ORDERED: Lidocaine PF 2% (5 ml) Inj (For Cardiac Arrhy) ONE (15:52)
[2018-05-09] MEDS ORDERED: Iodixanol 320 mg/ml 150 ml Bottle IV ONE (15:55)
[2018-05-09] MEDS ORDERED: Nitroglycerin 50mg in D5W 50 MG/250 ML BOTTLE IV ONE (15:55)
[2018-05-09] MEDS ORDERED: Midazolam 2 MG/2 ML VIAL ONE ×2 (16:16→16:35)
[2018-05-09] MEDS ORDERED: Oxycodone/Acetaminophen 5/325 mg Tab PO PRN (16:57)
[2018-05-09 17:09] VITALS: RESP 18
[2018-05-09 17:59] VITALS: PULSE 82; TEMP 97.8
[2018-05-09 18:04] VITALS: BP 180/93; O2SAT 100
--- NOTE | 2018-05-10 14:42 | VASCULAR ---
PROCEDURE: 1. Left AV graft thrombolysis. HISTORY: End-stage renal disease. Recurrent left forearm AV graft thrombolysis. PHYSICIAN(S): Austin Muse MD. TECHNIQUE: The relative risks and indications of the procedure were explained to the patient and consent obtained. The patient was placed supine on the angiography table and the left arm prepped and draped in usual sterile fashion. Conscious sedation and monitoring provided throughout the procedure by a nurse. The loop graft in the left forearm was punctured with a micropuncture set. A 5 [place] catheter was placed. This revealed thrombosis of the loop graft. The venous outflow is via the left basilic vein. The vein is patent. The central veins are patent. A 2nd puncture was performed directed toward the arterial anastomosis. TPA 4 milligrams was placed within the graft. 0.035 support wire was placed in the IVC. Percutaneous thrombectomy of the venous limb was performed with 7 mm [place] balloon. Next percutaneous thrombectomy of the arterial limb was performed with 6 mm [place] balloon. Brisk flow was re-established with a good thrill. No underlying stenosis was appreciated. FINDINGS: The patient's left upper extremity forearm loop graft is thrombosed. IMPRESSION: 1. Successful thrombolysis of the patient's left upper extremity forearm loop graft. No underlying stenosis was appreciated. The patient was started on Eliquis 2.5 MG
== END 2018-05-09 18:04 | disposition home or self-care (01) ==
LOC: ED 11:43 → SDSVAS 12:59
PROVIDERS: ATTEND Radiology Vascular & Interventional Radiology
DX: T82.868A Thrombosis due to vascular prosthetic devices, implants and grafts, initial encounter (principal); N18.6 End stage renal disease; I12.0 Hypertensive chronic kidney disease with stage 5 chronic kidney disease or end stage renal disease; E11.22 Type 2 diabetes mellitus with diabetic chronic kidney disease; J44.9 Chronic obstructive pulmonary disease, unspecified; Z79.4 Long term (current) use of insulin; Z99.2 Dependence on renal dialysis; Y83.2 Surgical operation with anastomosis, bypass or graft as the cause of abnormal reaction of the patient, or of later complication, without mention of misadventure at the time of the procedure
CPT/HCPCS: 36904; 80053; 85025; 99152; 99282; C1725 ×2; C1769 ×3; C1887; C1894; J0690; J1644; J2250; J2997; J3010; Q9967

== ENCOUNTER 2018-10-03 10:06 | Day surgery (SDC) | payer MEDICARE, MEDICAID ==
[2018-10-03 11:04] VITALS: BMI 37.8
[2018-10-03 11:33] LABS: BASO # 0.01 K/mm3 (0.0-2.0); BASO % 0.2 % (0.0-3.0); EOS # 0.1 (0.0-0.7); EOS % 1.6 % (1.5-5.0); HEMOGLOBIN 9.6 g/dL (12.0-16.0); LYMPH # 0.8 (1.2-3.4); LYMPH % 12.1 % (22.0-35.0); MEAN CELL VOLUME 94.6 fl (80.0-105.0); MEAN CORPUSCULAR HEMOGLOBIN 32.4 pg (25.0-35.0); MEAN CORPUSCULAR HGB CONC 34.3 g/dl (31.0-37.0); MEAN PLATELET VOLUME 9.4 fl (7.0-11.0); MONO # 0.3 (0.1-0.6); MONO % 5.1 % (1.0-6.0); RBC 2.96 10^6/uL (3.5-6.1); RED CELL DISTRIBUTION WIDTH 13.8 % (11.5-14.5); WHITE BLOOD COUNT 6.3 10^3/uL (4.5-11.0)
[2018-10-03 11:38] LABS: INR 1.04; PARTIAL THROMBOPLASTIN TIME 29.5 Seconds (26.9-38.3); PROTHROMBIN TIME 11.7 SECONDS (9.4-12.5)
[2018-10-03 11:43] LABS: CALCIUM 9.5 mg/dL (8.4-10.5)
[2018-10-03] MEDS ORDERED: Insulin Reg-LOW-Coverage SC ONE (11:55)
[2018-10-03] MEDS ORDERED: Insulin Regular 1 UNITS/0.01 ML ML SC STA ×2 (11:57→16:00)
[2018-10-03] MEDS ORDERED: Iodixanol 320 mg/ml 150 ml Bottle IV ONE (13:08)
[2018-10-03] MEDS ORDERED: Nitroglycerin 50mg in D5W 50 MG/250 ML BOTTLE IV ONE (13:08)
[2018-10-03] MEDS ORDERED: Lidocaine 2% Inj (20ml) ONE (13:08)
[2018-10-03] MEDS ORDERED: [UNRECOGNIZED DRUG - OTHER] IV ONE (13:18)
[2018-10-03] MEDS ORDERED: Iodixanol 320 MG/ML 100 ML BOTTLE IV ONE ×2 (13:21→14:42)
[2018-10-03] MEDS ORDERED: Midazolam 2 MG/2 ML VIAL ONE (14:11)
[2018-10-03] MEDS ORDERED: Insulin Regular 1 UNITS/0.01 ML ML SC ONE (16:00)
[2018-10-03 16:22] VITALS: RESP 20
[2018-10-03 17:28] VITALS: BP 172/81; PULSE 93; TEMP 98; O2SAT 92
--- NOTE | 2018-10-04 10:21 | VASCULAR ---
PROCEDURE: 1. Left upper extremity AV graft thrombolysis with 2 punctures. 2. Venous angioplasty mid left basilic vein HISTORY: End-stage renal disease. Thrombosed left upper extremity AV graft PHYSICIAN(S): Austin Muse MD. TECHNIQUE: The relative risks and indications of the procedure were explained to the patient and consent obtained. The patient was placed supine on the angiography table and the left arm prepped and draped in usual sterile fashion. Conscious sedation and monitoring provided throughout the procedure by a nurse. Antibiotics were given. Under ultrasound guidance, the thrombosed left forearm loop graft was punctured with a micropuncture set. A 5 [place] catheter was placed. Imaging of the venous outflow was performed. This revealed a severe 5 cm stenosis of left basilic vein in the mid upper arm. The central veins are widely patent. A 2nd puncture was performed of the loop graft directed towards the arterial anastomosis. A 0.035 glidewire was advanced across the arterial anastomosis into the left brachial artery. Exchange was made in the IVC for a 0.035 support wire. TPA 4 milligrams was given within the loop graft. The venous portion of the loop graft was thrombectomized with a 7 mm Conquest balloon. Next the platelet plug in arterial aspect loop graft was declotted with a 6 mm Conquest balloon. The 5 cm stenosis in the mid left basilic vein was dilated with 7 and 8 mm balloons. A good angiographic result was obtained. No stent was required. The catheter was removed hemostasis obtained with pursestring sutures. The patient tolerated the procedure well. FINDINGS: The patient's left forearm loop graft is thrombosed. The venous anastomosis appears patent. There is some narrowing in the venous aspect of the loop graft. This was dilated with an 8 mm balloon. There is a 5 cm severe stenosis of the outflow veins in the mid left basilic vein. This was successfully dilated with 7 and 8 mm balloons. The central veins are widely patent. IMPRESSION: 1. Successful thrombolysis of the patient's occluded left forearm loop graft as described above 2. 5 cm focal stenosis in the left basilic vein in the mid upper arm. This was successfully dilated with 7 and 8 mm balloons. 3.. Widely patent central veins.
== END 2018-10-03 17:15 | disposition home or self-care (01) ==
LOC: SDSVAS 10:06
PROVIDERS: ATTEND Radiology Vascular & Interventional Radiology
DX: T82.858A Stenosis of other vascular prosthetic devices, implants and grafts, initial encounter (principal); I13.0 Hypertensive heart and chronic kidney disease with heart failure and stage 1 through stage 4 chronic kidney disease, or unspecified chronic kidney disease; N18.6 End stage renal disease; E11.22 Type 2 diabetes mellitus with diabetic chronic kidney disease; I50.9 Heart failure, unspecified; I25.10 Atherosclerotic heart disease of native coronary artery without angina pectoris; I25.2 Old myocardial infarction; E11.51 Type 2 diabetes mellitus with diabetic peripheral angiopathy without gangrene; J45.909 Unspecified asthma, uncomplicated; J43.9 Emphysema, unspecified; D64.9 Anemia, unspecified; E78.00 Pure hypercholesterolemia, unspecified; E11.40 Type 2 diabetes mellitus with diabetic neuropathy, unspecified; Z95.1 Presence of aortocoronary bypass graft; Z95.5 Presence of coronary angioplasty implant and graft
CPT/HCPCS: 36415; 36905; 80048; 82948; 85025; 85610; 85730; 99152; 99153; C1725 ×4; C1769 ×3; C1894 ×2; J0690; J1644; J2250; J2405; J2997; J3010; Q9967

== ENCOUNTER 2018-12-21 10:03 | Day surgery (SDC) | payer MEDICARE, MEDICAID ==
[2018-12-20 16:39] VITALS: BMI 39.2
[2018-12-21 10:27] LABS: BASO # 0.02 K/mm3 (0.0-2.0); BASO % 0.3 % (0.0-3.0); EOS # 0.3 (0.0-0.7); EOS % 4.6 % (1.5-5.0); HEMOGLOBIN 11.9 g/dL (12.0-16.0); LYMPH # 0.9 (1.2-3.4); LYMPH % 14.7 % (22.0-35.0); MEAN CELL VOLUME 93.8 fl (80.0-105.0); MEAN CORPUSCULAR HEMOGLOBIN 30.6 pg (25.0-35.0); MEAN CORPUSCULAR HGB CONC 32.6 g/dl (31.0-37.0); MEAN PLATELET VOLUME 9.4 fl (7.0-11.0); MONO # 0.3 (0.1-0.6); MONO % 5.2 % (1.0-6.0); RBC 3.89 10^6/uL (3.5-6.1); RED CELL DISTRIBUTION WIDTH 13.5 % (11.5-14.5); WHITE BLOOD COUNT 6.3 10^3/uL (4.5-11.0)
[2018-12-21 10:36] LABS: INR 1.01; PARTIAL THROMBOPLASTIN TIME 32.6 Seconds (26.9-38.3); PROTHROMBIN TIME 11.4 SECONDS (9.4-12.5)
[2018-12-21] MEDS ORDERED: Lidocaine PF 2% (5 ml) Inj (For Cardiac Arrhy) ONE (10:39)
[2018-12-21 10:45] LABS: CALCIUM 10.7 mg/dL (8.4-10.5)
[2018-12-21] MEDS ORDERED: Midazolam 2 MG/2 ML VIAL ONE (11:11)
[2018-12-21 12:43] VITALS: RESP 20; TEMP 98
[2018-12-21 13:59] VITALS: BP 126/78; PULSE 70; O2SAT 95
--- NOTE | 2018-12-21 20:37 | VASCULAR ---
PROCEDURE: 1. Ultrasound and fluoroscopic tunneled right IJ dialysis catheter. 2. Remove malfunctioning tunneled left IJ dialysis catheter CLINICAL HISTORY: ESRD malfunctioning tunneled left IJ dialysis catheter PHYSICIAN(S): Austin Msue M.D. TECHNIQUE: The relative risks and indications for the procedure were explained to the patient and informed written consent obtained. The patient was placed supine on the arteriography table and the right neck/chest was prepped and draped in the usual sterile fashion. 1% Xylocaine was used to anesthetize the skin and soft tissues at the puncture site. Conscious sedation and monitoring were provided throughout the procedure by a nurse. Under direct ultrasound guidance, the rightinternal jugular vein was punctured with a micropuncture set. A 0.035 Glidewire was advanced into the IVC. Sequential dilatation was performed with subsequent placement of a 28cm next Keyla catheter with its tip in the right atrium. A retrograde tunnel below the right clavicle was performed. The catheter was trimmed and the hub attached. Both ports aspirate and inject easily. The catheter was secured and a dressing applied. The patient's tunneled left IJ dialysis catheter was prepped and draped usual sterile fashion. 1 percent xylocaine was used anesthetize the insertion site and tunnel. Blunt dissection was performed. The catheter was removed and a single interrupted suture placed at the exit site IMPRESSION: 1. Ultrasound and fluoroscopically placed right IJ tunneled dialysis catheter. 2. Removal the patient's malfunctioning tunneled left IJ dialysis catheter
== END 2018-12-21 13:50 | disposition home or self-care (01) ==
LOC: SDS 10:03
PROVIDERS: ATTEND Radiology Vascular & Interventional Radiology
DX: T82.41XA Breakdown (mechanical) of vascular dialysis catheter, initial encounter (principal); N18.6 End stage renal disease; Y83.8 Other surgical procedures as the cause of abnormal reaction of the patient, or of later complication, without mention of misadventure at the time of the procedure
CPT/HCPCS: 36415; 36558; 36589; 76937; 77001; 80048; 85025; 85610; 85730; 99152; C1750; C1769; J0690; J1644; J2250; J2405; J3010; J7040

== ENCOUNTER 2019-01-02 13:49 | Outpatient (CLI) | payer MEDICARE, MEDICAID | END 2019-01-02 13:50 | disposition home or self-care (01) | LOC: RAD 13:49 ==